=== PATIENT | female | born 1965 | race Caucasian/White ===

== ENCOUNTER 2018-04-16 19:25 | Emergency (ER) | payer OTHER, SELFPAY ==
[2018-04-16 19:26] VITALS: BP 168/86; PULSE 93; RESP 18; TEMP 36.8; O2SAT 100; BMI 26.8
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
[2018-04-16] MEDS: fentaNYL 100 MCG/2 ML Ampul 50 MCG IV ×2 (20:23→22:12)
[2018-04-16] MEDS: Diphth,Pertuss(Acell),Tet Vac 0.5 ML Vial IM (20:24)
[2018-04-16] MEDS: Cephalexin 250 MG Capsule 500 MG PO (20:24)
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
[2018-04-16 21:46] VITALS: TEMP 37.1
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
[2018-04-16] MEDS: proMETHazine 25 MG/ML Syringe 6.25 MG IV (22:11)
[2018-04-16] MEDS: BACITRACIN 15 GM Tube 1 APPLIC TOPICAL (22:59)
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
--- NOTE | 2018-04-16 23:02 | ED.DEP ---
ED Disposition - Plan for ED Patient: Chief Complaint: Trauma Instructions: ED Abrasion Prescriptions: Oxycodone [Oxyir] 5 mg PO Q6H PRN PRN 3 Days #12 tab PRN Reason: Pain Cephalexin [Keflex] 500 mg PO Q6 #28 cap Referrals: Miesha Aranda DO [Primary Care Provider] -
[2018-04-16] MEDS: oxyCODONE 5 MG Tablet PO (23:15)
[2018-04-16 23:21] VITALS: PULSE 78; RESP 14; O2SAT 100
== END 2018-04-16 23:22 | disposition home or self-care (01) ==
PROVIDERS: Emergency Provider Emergency Medicine; Family Provider Internal Medicine; PCP Internal Medicine
DX: S00.83XA Contusion of other part of head, initial encounter (principal); S30.811A Abrasion of abdominal wall, initial encounter; S40.812A Abrasion of left upper arm, initial encounter; S40.811A Abrasion of right upper arm, initial encounter; S80.812A Abrasion, left lower leg, initial encounter; S80.811A Abrasion, right lower leg, initial encounter; R07.9 Chest pain, unspecified; V19.9XXA Pedal cyclist (driver) (passenger) injured in unspecified traffic accident, initial encounter; Y93.55 Activity, bike riding; Y92.9 Unspecified place or not applicable; Y99.9 Unspecified external cause status; Z23 Encounter for immunization; G35 Multiple sclerosis; Z79.899 Other long term (current) drug therapy; Z85.6 Personal history of leukemia
CPT/HCPCS: 70450; 70486; 71045; 72125; 73080; 73130; 90471; 90715; 96374; 96375; 96376; 99283; A4216

== ENCOUNTER 2018-10-29 21:23 | Emergency (ER) | payer OTHER, SELFPAY ==
[2018-10-29 21:24] VITALS: BP 159/83; PULSE 86; RESP 16; TEMP 36.3; BMI 27.8
[2018-10-29] MEDS: 0.9% Normal Saline 1,000 ML 150 ML IV (23:17)
[2018-10-29 23:30] LABS: Bacteria 0 SEEN /hpf (None Seen); Mucous, Urine 0 SEEN /hpf (<or=2+); Squamous Epithelial Cells - UA 0 SEEN /hpf (5-10)
[2018-10-29 23:31] LABS: Absolute Lymphocyte Count 0.98 X10^3/ul (0.83-4.51); Absolute Neutrophil Count 7.1 X10^3/uL (2.0-7.7); Basophil# 0.03 X10^3/uL; Basophil% 0.3 % (0-1); Eosinophil# 0.19 X10^3/uL; Eosinophils% 2.1 % (0-5); Hematocrit 43.6 % (37-47); Hemoglobin 14.6 g/dl (12.0-15.0); Lymphocyte # 0.98 X10^3/ul (4.0); Lymphocyte % 10.7 % (19-41); Mean Corp Hgb Conc 33.5 g/gl (32-36); Mean Corpuscular Volume 92.6 fL (81-99); Monocyte# 0.88 X10^3/uL; Monocyte% 9.6 % (0-10); Neutrophil # 7.06 X10^3/uL (2.7-7.7); Neutrophil % 77.2 % (47-70); Platelet Count 235 K/mm3 (150-450); RBC Distribution Width CV 13.2 % (11.6-14.6); RBC Distribution Width SD 44.1 fl (35.1-43.9); Red Blood Count 4.71 M/mm3 (4.2-5.4); White Blood Count 9.2 K/mm3 (4.4-11.0)
[2018-10-29 23:40] LABS: Color, Urine Yellow (Yellow); Glucose, Dipstick Normal (Normal); Ketone-Dipstick Negative (Negative); Leukocyte Esterase-Dipstick 500 /ul (Negative); Nitrite-Dipstick Negative (Negative); Occult Blood-Urine 150 /ul (Negative); Protein-Dipstick 30 mg/dl (Negative); Specific Gravity, Urine 1.005 (1.002-1.030); Urine Bilirubin Dipstick Negative (Negative); Urine Clarity Sl. Cloudy (Clear); Urine Urobilinogen Normal (Normal)
[2018-10-29 23:47] LABS: Red Blood Cells-Urine 5-10 SEEN /hpf (0-5); White Blood Cells 25-50 SEEN /hpf (0-5)
[2018-10-29 23:48] LABS: Anion Gap 7 (5-15); BUN 13 mg/dL (7-18); BUN/Creat Ratio 14.1 RATIO (10-20); Calcium,Total 8.9 mg/dL (8.5-10.1); Chloride 103 mmol/L (98-107); Creatinine, Serum 0.92 mg/dL (0.55-1.02); EST Glomerular Filtration Rate 68 mL/min (>60); Est Glom Filt Rate - Afr Amer 82 mL/min (>60); Estimated Creatinine Clearance 76.45 ml/min; Glucose 115 mg/dL (74-106); Sodium Level 139 mmol/L (136-145)
[2018-10-29 23:52] LABS: POSITIVE COUNT NO; POSITIVE DIFFERENTIAL NO; POSITIVE MORPHOLOGY NO
[2018-10-30 00:21] VITALS: BP 112/62; PULSE 82; RESP 18; TEMP 37.2; O2SAT 96
--- NOTE | 2018-10-30 01:20 | CT_ITS ---
HISTORY: RLQ pain and fever x 2 days. Hx of lymphoma. No prev abdominal surgeries EXAMINATION: CT Abdomen And Pelvis W/ Contrast TECHNIQUE: Helically acquired images were obtained of the abdomen and pelvis following IV contrast. A radiation dose optimization technique was used for this scan. IV Contrast dosage and agent: 100ml Isovue 300 Oral contrast: None. COMPARISON: None FINDINGS: Lower thorax: Mild dependent atelectasis. Poor distention of the gallbladder. No biliary dilatation. Normal liver, spleen, and pancreas. Both kidneys are normal in position. Bilateral renal opacification. Asymmetric dilatation of the right renal pelvis with a crossing vessel near the right UPJ and developmental type UPJ narrowing is possible. Only minor calyceal distention on the right. The distal right ureter is nondilated. No renal calculi visualized. No hydronephrosis or hydroureter on the left. GN glands are not enlarged. Normal abdominal aorta and IVC. No ascites or retroperitoneal lymph enlargement. GI tract: Prominent constipation. The cecum is midline. The appendix is not visualized but no pericecal or pericolonic inflammatory changes visualized. Pelvis: Anteverted uterus which is normal in caliber. Small submucosal calcified fibroid suggested numerous pelvic phleboliths. Urinary bladder is poorly distended. No free fluid or lymph enlargement. Bones: No acute osseous abnormality. CT/Abdomen/Pelvis WITH Contrast IMPRESSION: 1. Prominent constipation and midline cecum. Nonvisualization of the appendix but no pericecal inflammatory changes seen. 2. Right renal pelviectasis with developmental UPJ narrowing on the right suggested. If symptoms warrant, further correlation with nuclear diuretic renal scan could be obtained on a nonemergent basis. Individualized dose optimization techniques were used for this CT. at 0157 Reported and signed by: Natanael Cummings MD Electronically Signed: Natanael Cummings, at 1:56 EDT Tel , Service support ,
--- NOTE | 2018-10-30 02:13 | ED.DCSUM_ITS ---
- ER Visit Summary Date of Service: 10/30/18 Chief Complaint: Abdominal pain History of Present Illness: The patient is a 52 F with history of MS, CML, asthma. Patient reports sharp right lower quadrant suprapubic pain after a bowel movement last night. She had aching sensation in her abdomen today but pa in turned sharp again tonight after a bowel movement. She states her temperature at home was around 101. Patient does have problems regulating her bowels and bladder with her MS. Physical Examination: Vital signs unremarkable. Temperature here is 97.3. Patient sitting upright in bed no acute distress. She is nontoxic appearing. Head neck examination is normal. Heart is regular rate and rhythm. Lungs sounds clear. Abdomen is soft with very mild tenderness in the right lower quadrant. Active bowel sounds are noted throughout. No guarding or rebound noted. Test Results: CBC and chemistry studies unremarkable. Urinalysis does show 25- 50 white cells with 0 bacteria. 0 epithelial cells are noted. CT abdomen pelvis with contrast shows prominent constipation and midline cecum. There is nonvisualization of the appendix but no jose-cecal inflammation is noted. Right renal pelviectasis with developmental UPJ narrowing is noted on the right. Emergency Department Course and Treatment: Patient declined anything for pain. She was given IV fluids. She will use MiraLAX to treat her constipation. Urine will be sent for culture. Because she does not have dysuria and no bacteria I will not start antibiotics at this time. Patient states she does have limitations on what antibiotics she can take. If her urine culture were to return positive we will call her. She states Macrobid works best for her if in fact she does have a UTI. Treatment Plan: [] Disposition: Discharge Impression: Constipation This note was generated with [employer] dictation software. It may contain incorrect words, spelling, and punctuation that were not noted in review of the chart prior to signing ED Disposition - Plan for ED Patient: Disposition: Home or Assisted Living Instructions: ED Constipation Referrals: Miesha Aranda, [Primary Care Provider] - 3-5 Days if not improving
--- NOTE | 2018-10-30 02:13 | ED.DEP ---
ED Disposition - Plan for ED Patient: Disposition: Home or Assisted Living Instructions: ED Constipation Referrals: Miesha Aranda DO [Primary Care Provider] - 3-5 Days if not improving
[2018-10-30 02:15] VITALS: BP 118/79; PULSE 83; RESP 16; O2SAT 95
== END 2018-10-30 02:16 | disposition home or self-care (01) ==
PROVIDERS: Emergency Provider Emergency Medicine; Family Provider Internal Medicine; PCP Internal Medicine
DX: K59.00 Constipation, unspecified (principal); G35 Multiple sclerosis; J45.909 Unspecified asthma, uncomplicated; Z79.899 Other long term (current) drug therapy; Z85.6 Personal history of leukemia
CPT/HCPCS: 74177; 80048; 81001; 85025; 87086; 87088; 87186; 96360; 96361; 99284; J7030; Q9967

== ENCOUNTER → 2019-02-25 10:59 | Outpatient (CLI) | payer OTHER, SELFPAY ==
[2019-02-25 11:39] LABS: Absolute Lymphocyte Count 1.22 X10^3/uL (0.83-4.51); Absolute Neutrophil Count 3.1 X10^3/uL (2.0-7.7); Basophil# 0.04 X10^3/uL; Basophil% 0.8 % (0-1); Eosinophil# 0.23 X10^3/uL; Eosinophils% 4.5 % (0-5); Hematocrit 43.3 % (37-47); Lymphocyte # 1.22 X10^3/ul (4.0); Lymphocyte % 23.7 % (19-41); Mean Corp Hgb Conc 32.3 g/dL (32-36); Mean Corpuscular Hgb 30.8 pg (27.0-32.0); Mean Corpuscular Volume 95.4 fL (81-99); Mean Platelet Vol. 9.3 fl (6.2-12.0); Monocyte# 0.59 X10^3/uL; Monocyte% 11.5 % (0-10); NRBC Flagged by Analyzer 0 % (0-5); Neutrophil # 3.05 X10^3/uL (2.7-7.7); Neutrophil % 59.1 % (47-70); Platelet Count 278 K/mm3 (150-450); RBC Distribution Width CV 13.8 % (11.6-14.6); RBC Distribution Width SD 48.1 fl (35.1-43.9); Red Blood Count 4.54 M/mm3 (4.2-5.4); White Blood Count 5.2 K/mm3 (4.4-11.0)
[2019-02-25 11:44] LABS: Color, Urine Yellow (Yellow); Glucose, Dipstick Normal (Normal); Ketone-Dipstick Negative (Negative); Leukocyte Esterase-Dipstick Negative /ul (Negative); Nitrite-Dipstick Negative (Negative); Occult Blood-Urine Negative /ul (Negative); Protein-Dipstick Negative (Negative); Specific Gravity, Urine 1.005 (1.002-1.030); Urine Bilirubin Dipstick Negative (Negative); Urine Clarity Clear (Clear); Urine Urobilinogen Normal (Normal)
[2019-02-25 12:01] LABS: Microalbumin,Random Urine 10.1 mg/L (NO RANGE EST.); Microalbumin:Creatinine Ratio 16.7 mg/g CRE (<30 mg/g CRE)
[2019-02-25 13:17] LABS: ALB/GLOB Ratio 1.2 RATIO (0.9-2.4); AST(SGOT) 19 U/L (15-37); Alanine Aminotransfer ALT/SGPT 26 U/L (13-56); Albumin, Serum 4.2 g/dL (3.2-5.0); Alkaline Phosphatase 68 U/L (45-117); Anion Gap 9 (5-15); BUN 14 mg/dL (7-18); Chloride 105 mmol/L (98-107); EST Glomerular Filtration Rate 94 mL/min (>60); Est Glom Filt Rate - Afr Amer 113 mL/min (>60); Globulin 3.6 g/dL (2.2-4.2); Glucose 92 mg/dL (74-106); Potassium 4.2 mmol/L (3.5-5.1); Protein, Total 7.8 g/dL (6.4-8.2); Sodium Level 138 mmol/L (136-145); Thyroid Stim Hormone (TSH) 2.29 uIU/mL (0.358-3.74)
[2019-02-26 16:07] LABS: CHOLESTEROL TOTAL 253 mg/dL (100-199); HDL-C 90 mg/dL (>39); SMALL LDL-P 346 nmol/L (<=527); TRIGLYCERIDES 60 mg/dL (0-149)
[2019-02-27 15:25] LABS: INSULIN RESISTANCE SCORE <25 (<=45); LDL SIZE 21.3 nm (>20.5); LDL-C 151 mg/dL (0-99); LDL-P 1459 nmol/L (<1000)
== END ==
PROVIDERS: Family Provider Internal Medicine; PCP Internal Medicine; Referring Provider Internal Medicine; Visit Provider Internal Medicine
DX: E78.00 Pure hypercholesterolemia, unspecified (principal); C95.90 Leukemia, unspecified not having achieved remission; R80.9 Proteinuria, unspecified
CPT/HCPCS: 36415; 80053; 80061; 81002; 82043; 82570; 83704; 84443; 85025

== ENCOUNTER → 2020-02-24 10:23 | Outpatient (CLI) | payer OTHER, SELFPAY ==
--- NOTE | 2020-02-24 10:31 | BD_ITS ---
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 COMPARISON: None. FINDINGS: Lumbar Spine (L1-L4): g/cm2 (1.1-0) / T-score (-0.5) / Z-score (0.1) Findings are suggestive of normal bone density with a low fracture risk. Left Femur Total: g/cm2 (0.961) / T-score (-0.4) / Z-score (0.2) Left Femoral Neck: g/cm2 (1.082) / T-score (0.3) / Z-score (1.2) Right Femur Total: g/cm2 (0.960) / T-score (-0.4) / Z-score (0.2) Right Femoral Neck: g/cm2 (1.061) / T-score (0.2) / Z-score (1.0) BD/Dexa Bone Density Study IMPRESSION: The patient is considered normal as outlined below according to World Sammy Organization (WHO) criteria with a low fracture risk. Reference Information: The T-score is the number of standard deviations above or below the standard which is normal for young adults at their peak bone mineral density. The World Health Organization (WHO) interprets the T-scores as follows: Above -1 Normal bone density Between -1 and -2.5 Osteopenia Equal to / or below -2.5 Osteoporosis As a practical clinical guideline, osteopenia may be graded as follows: Mild -1 through -1.5 Moderate -1.6 through -2.0 Severe -2.1 through -2.4 The Z-score is the number of standard deviations above or below age-matched controls. A Z-score of less than -1.5 would be considered abnormal. References: 1. NIH Osteoporosis and Related Bone Diseases http://www.osteo.org 2. International Society for Clinical Densitometry http://www.iscd.org 3. National Osteoporosis Foundation http://www.nof.org Electronically Signed: Gene Bowman, at 11:55 EDT , Service support ,
== END ==
PROVIDERS: PCP Internal Medicine; Referring Provider Internal Medicine; Visit Provider Internal Medicine
DX: Z78.0 Asymptomatic menopausal state (principal)
CPT/HCPCS: 77080

== ENCOUNTER 2021-07-01 18:22 | Outpatient (CLI) | payer OTHER, SELFPAY ==
[2021-07-01 18:30] VITALS: BP 154/79; PULSE 85; RESP 16; TEMP 37.2; O2SAT 98; BMI 29.5
[2021-07-01] MEDS: 0.9% Saline Lock 10 ML Syringe IV (18:39)
[2021-07-01 19:27] VITALS: BP 144/67; PULSE 79; RESP 16; TEMP 37; O2SAT 98
[2021-07-01 20:25] VITALS: BP 142/78; PULSE 79; RESP 16; TEMP 37.5; O2SAT 99
== END 2021-07-01 20:28 | disposition home or self-care (01) ==
LOC: MS3OUT 18:22 → MS3 18:23
PROVIDERS: PCP Internal Medicine; Referring Provider Nurse Practitioner Acute Care; Visit Provider Nurse Practitioner Acute Care
DX: Z23 Encounter for immunization (principal); U07.1 COVID-19
CPT/HCPCS: J7050; M0245; Q0245; A4216

== ENCOUNTER → 2022-04-18 | Outpatient (CLI) | payer OTHER, SELFPAY ==
--- NOTE | 2022-04-18 11:15 | BRBX_PTH ---
PATIENT: BRYANNA CHASE LOC: RO U#:[id number] AGE/SX: 56/F ROOM: RE04/18/[address]: Dr. Carmella Griffiths MD : 1965 BED: DIS: 04/18/2022 SPEC #: [id number] RECD: 04/18/22 11:55 STATUS: KAREEM REBrooke #: [id number] JODI: 04/18/22 11:[address]: Carmella Griffiths DEPT: SURGICAL PATHOLOGY RECD BY: Isela Valderrama ENTERED: 04/18/22 12:11 SP TYPE: BREAST BX OT DR: Dr. Miesha Aranda DO Tissues: Left breast, NOS Procedures: Surgery Specimen Level IV HEADER OPERATION: Left breast needle core biopsy PRE-OP DIAGNOSIS: Left breast calcifications superior lateral anterior depth TISSUE SUBMITTED: Left breast tissue ISCHEMIC TIME: 1 minute FIXATION TIME: 8.5 hours MICROSCOPIC DIAGNOSIS Left breast calcifications, superior lateral anterior depth, stereotactic core biopsy: Hyalinized intraductal papilloma with calcifications. Focal ductal dilatation. Negative for atypia or malignancy. See comment. KETTY:guzman 04/19/2022 COMMENT Correlation with clinical, radiologic findings and appropriate follow up are necessary. Case has been reviewed in consultation with Dr. Lopes who concurs with the above diagnosis. IDC:AM MICROSCOPIC DESCRIPTION Slides are reviewed. GROSS DESCRIPTION Received in fixative is one container labeled with the patient's name and designated left breast. The specimen consists of multiple elongated fragments of max-yellow fibroadipose tissue that in aggregate measure 4 x 3 x 0.3 cm. The entire specimen is submitted in two cassettes. / KETTY:guzman 04/18/2022 TC:1 CPT: 57400 ADDENDUM ADDENDUM ADDENDUM ADDENDUM ADDENDUM ADDENDUM ADDENDUM ADDENDUM ADDENDUM ADDENDUM 06/12/2022 07:54 ADDENDUM 06/12/2022 07:54 ADDENDUM 06/12/2022 07:54 ADDENDUM 06/12/2022 07:54 ADDENDUM 06/12/2022 07:54 This addendum is added to incorporate an outside pathology report. The case was examined at [facility] (#[id number]) and the following diagnosis was rendered. A. Left breast calcifications, superior lateral anterior depth, stereotactic core biopsy: Sclerotic intraductal papilloma with stromal microcalcifications Please see complete above mentioned consultation report in EMR
--- NOTE | 2022-04-18 11:23 | PCM.OPRPT ---
Report of Operation Date of Procedure: 04/18/22 Pre-Operative Diagnosis: abnormal left breast calcifications seen on mammograms Post-Operative Diagnosis: same Surgery/Procedure Performed:: left stereotactic breast biopsy Description of Surgical Findings:: on CC view, there are three clusters of calcifications circled, on LM view - there is just one cluster circled, therefore approach was LM. Upon biopsy, it is found that these are primarily vascular calcifications Surgeon: Carmella Griffiths Type of Anesthesia: Local Specimen's removed: left breast tissue Estimated Blood Loss (mL): < 2 ml Description of Procedure: After informed consent was given, the patient was brought into the Breast Biopsy suite. Appropriate time out protocol was followed. The patient was placed in the prone position on the stereotactic biopsy table. The patient?s left breast was then placed in the opening at the head of the biopsy table. A resolution specialist compression mammogram was then obtained in the lateral view. The suspicious radiological lesion was thus identified. With review of the mammograms, on CC view, there are three clusters of calcifications circled; on LM view - there is just one cluster circled, therefore approach was LM. Upon biopsy, it is found that these are primarily vascular calcifications. Stereo pictures of the lesion were then taken for XYZ coordinates. The Mammotome biopsy stylus was then positioned where it would be entering into the patient?s breast. The skin at this site was then cleansed with a surgical skin preparation. The skin and subcutaneous tissues at this site were then infiltrated with 1% xylocaine. A small skin incision was made with an 11 blade scalpel. The biopsy stylus was then positioned into the patient?s breast at the proper coordinates of depth. Using the Mammotome vacuum-assist device, several core samples of breast tissue were obtained. Once again, there was active bleeding noted, since a vascular biopsy essentially was done. A specimen mammogram was the obtained. It revealed that the abnormal calcifications were within the specimen. I reviewed this personally and concluded that the tissue sampling was adequate. A hemostatic marker clip was then placed into the biopsy cavity and a resolution specialist film revealed that it was properly deployed. The patient was then placed in the supine position and pressure was applied to the breast until no active bleeding was noted. Nylonc suture was placed to reapproximate the skin. Sterile dressing was applied. A unilateral mammogram in the CC and MLO view were then taken which revealed that the marker clip was in the same area as the previous suspicious lesion. The patient tolerated the procedure well and was discharged from the Breast Biopsy suite in good condition. Complications none noted
== END | disposition home or self-care (01) ==
LOC: BIRAD 10:48
PROVIDERS: PCP Internal Medicine; Visit Provider Surgery
DX: D24.2 Benign neoplasm of left breast (principal); G35 Multiple sclerosis; I10 Essential (primary) hypertension; E78.5 Hyperlipidemia, unspecified; Z79.82 Long term (current) use of aspirin; Z79.899 Other long term (current) drug therapy
CPT/HCPCS: 19081; 88305; J7050

== ENCOUNTER → 2023-02-13 | Outpatient (CLI) | payer OTHER, SELFPAY ==
--- NOTE | 2023-02-13 08:52 | BD_ITS ---
STUDY: DUAL ENERGY X-RAY ABSORPTIOMETRY / DXA REASON FOR EXAM: Female, 57 years old. [id number] TECHNIQUE: Bone Mineral Density (BMD) measurements of lumbar spine and bilateral hips were obtained. COMPARISON: Comparison is made with prior study February 24, 2020. FINDINGS: Lumbar Spine (L1-L4): g/cm2 (0.854) / T-score (-1.8) / Z-score (-0.7) Findings are suggestive of osteopenia with a moderate fracture risk. Left Femur Total: g/cm2 (0.834) / T-score (-0.9) / Z-score (-0.2) Left Femoral Neck: g/cm2 (0.804) / T-score (-0.4) / Z-score (0.7) Right Femur Total: g/cm2 (0.822) / T-score (-1.0) / Z-score (-0.3) Right Femoral Neck: g/cm2 (0.765) / T-score (-0.8) / Z-score (0.3) The T-Scores on the most recent prior examination were: Lumbar Spine (L1-L4): There has been worsening of bone density since the previous examination. Left Femur Total: which represents a worsening of 6.9%. Right Femur Total: which represents a worsening of 8.1%. BD/Dexa Bone Density Study IMPRESSION: The patient is considered osteopenic as outlined below according to World Sammy Organization (WHO) criteria with a moderate fracture risk. There has been worsening of bone density since the previous examination. Reference Information: The T-score is the number of standard deviations above or below the standard which is normal for young adults at their peak bone mineral density. The World Health Organization (WHO) interprets the T-scores as follows: Above -1 Normal bone density Between -1 and -2.5 Osteopenia Equal to / or below -2.5 Osteoporosis As a practical clinical guideline, osteopenia may be graded as follows: Mild -1 through -1.5 Moderate -1.6 through -2.0 Severe -2.1 through -2.4 The Z-score is the number of standard deviations above or below age-matched controls. A Z-score of less than -1.5 would be considered abnormal. References: 1. NIH Osteoporosis and Related Bone Diseases www osteo.org 2. International Society for Clinical Densitometry www iscd.org 3. National Osteoporosis Foundation www nof.org Electronically Signed: Gene Bowman MD at 9:07 EDT ,
== END | disposition home or self-care (01) ==
LOC: OPBD 08:43
PROVIDERS: PCP Internal Medicine; Referring Provider Internal Medicine; Visit Provider Internal Medicine
DX: Z13.820 Encounter for screening for osteoporosis (principal); Z78.0 Asymptomatic menopausal state
CPT/HCPCS: 77080

== ENCOUNTER → 2023-02-26 | Outpatient (CLI) | payer OTHER, SELFPAY ==
--- NOTE | 2023-02-26 18:24 | US_ITS ---
STUDY: THYROID ULTRASOUND REASON FOR EXAM: Female, 57 years old. Thyromegaly . Prior resection of the right lobe of the thyroid. TECHNIQUE: Ultrasound evaluation of the thyroid was performed with real-time and static leavitt-scale imaging. COMPARISON: Comparison is made with prior study dated March 04, 2010. FINDINGS: RIGHT LOBE: The patient is status post resection of the right lobe of the thyroid. I suspect residual 9 mm x 8 mm x 6 mm thyroid remanent. LEFT LOBE: The left lobe of the thyroid gland is slightly enlarged measures 5 cm x 1.7 cm x 1.3 cm. There is a homogeneous echotexture. There is a 2 mm x 2 mm x 2 mm hypoechoic solid nodule in the upper pole. There is also evidence of a 2 mm x 2 mm x 2 mm cystic colloid in the mid pole. ISTHMUS: The isthmus measures 7 mm. The regional lymph nodes are normal. US/Thyroid IMPRESSION: Status post subtotal right thyroidectomy. There are 2, 2 mm nodules in the left lobe. Electronically Signed: Gene Bowman MD at 14:51 EDT ,
== END | disposition home or self-care (01) ==
PROVIDERS: PCP Internal Medicine; Referring Provider Internal Medicine; Visit Provider Internal Medicine
DX: E01.0 Iodine-deficiency related diffuse (endemic) goiter (principal)
CPT/HCPCS: 76536

== ENCOUNTER → 2023-06-14 | Outpatient (CLI) | payer OTHER, SELFPAY ==
[2023-06-14 06:56] LABS: Mucous, Urine 0 SEEN /hpf (<or=2+); Red Blood Cells-Urine 0 SEEN /hpf (0-5)
[2023-06-14 07:15] LABS: Absolute Lymphocyte Count 1.63 X10^3/uL (0.83-4.51); Absolute Neutrophil Count 4.4 X10^3/uL (2.0-7.7); Basophil# 0.04 X10^3/uL; Basophil% 0.6 % (0-1); Eosinophil# 0.16 X10^3/uL; Eosinophils% 2.3 % (0-5); Hematocrit 46.9 % (37-47); Lymphocyte # 1.63 X10^3/ul (0.83-4.51); Lymphocyte % 23.9 % (19-41); Mean Corpuscular Volume 93.8 fL (81-99); Mean Platelet Vol. 8.8 fl (6.2-12.0); Monocyte# 0.51 X10^3/uL; Monocyte% 7.5 % (0-10); NRBC Flagged by Analyzer 0 % (0-5); Neutrophil # 4.44 X10^3/uL (2.7-7.7); Neutrophil % 65.3 % (47-70); Platelet Count 321 K/mm3 (150-450); RBC Distribution Width CV 13.2 % (11.6-14.6); RBC Distribution Width SD 45.1 fl (35.1-43.9); White Blood Count 6.8 K/mm3 (4.4-11.0)
[2023-06-14 07:19] LABS: Color, Urine Yellow (Yellow); Glucose, Dipstick Normal (Normal); Ketone-Dipstick Negative (Negative); Leukocyte Esterase-Dipstick 100 /ul (Negative); Nitrite-Dipstick Negative (Negative); Occult Blood-Urine 10 /ul (Negative); Protein-Dipstick 15 mg/dl (Negative); Specific Gravity, Urine 1.015 (1.002-1.030); Urine Bilirubin Dipstick Negative (Negative); Urine Clarity Clear (Clear); Urine Urobilinogen Normal (Normal)
[2023-06-14 07:54] LABS: AST(SGOT) 13 U/L (15-37); Alanine Aminotransfer ALT/SGPT 23 U/L (13-56); Albumin, Serum 3.9 g/dL (3.2-5.0); Alkaline Phosphatase 88 U/L (45-117); Anion Gap 7 (5-15); BUN 13 mg/dL (7-18); BUN/Creat Ratio 16.8 RATIO (10-20); Chloride 105 mmol/L (98-107); Cholesterol 244 mg/dL (200); Creatinine, Serum 0.77 mg/dL (0.55-1.02); EST Glomerular Filtration Rate 82 mL/min (>60); Est Glom Filt Rate - Afr Amer 100 mL/min (>60); Glucose 95 mg/dL (74-106); High Density Lipoprotein 58 mg/dL; Potassium 3.9 mmol/L (3.5-5.1); Protein, Total 7.9 g/dL (6.4-8.2); Sodium Level 139 mmol/L (136-145); Thyroid Stim Hormone (TSH) 2.31 uIU/mL (0.358-3.74); Triglycerides 116 mg/dL; Very Low Density Lipoprotein 23 mg/dL (5-40)
[2023-06-14 08:13] LABS: Microalbumin,Random Urine 11.5 mg/L (NO RANGE EST.)
[2023-06-14 08:19] LABS: Bacteria 1+ /hpf (None Seen); Squamous Epithelial Cells - UA 0-5 SEEN /hpf (5-10); Transitional Epithelial - Ur 0-5 SEEN /hpf (0-5); White Blood Cells 0-5 SEEN /hpf (0-5)
[2023-06-15 18:07] LABS: CHOLESTEROL TOTAL 264 mg/dL (100-199); HDL-C 60 mg/dL (>39); HDL-P TOTAL 37.6 umol/L (>=30.5); INSULIN RESISTANCE SCORE 45 (<=45); LDL SIZE 21.2 nm (>20.5); LDL-C (NIH CALC) 185 mg/dL (0-99); LDL-P 2179 nmol/L (<1000); SMALL LDL-P 929 nmol/L (<=527); TRIGLYCERIDES 109 mg/dL (0-149)
== END | disposition home or self-care (01) ==
LOC: LAB 06:50
PROVIDERS: PCP Internal Medicine; Referring Provider Internal Medicine; Visit Provider Internal Medicine
DX: E78.00 Pure hypercholesterolemia, unspecified (principal); E88.810 Metabolic syndrome; R80.9 Proteinuria, unspecified
CPT/HCPCS: 36415; 80053; 80061; 81001; 82043; 82570; 83704; 84443; 85025

== ENCOUNTER → 2025-07-22 | Outpatient (CLI) | payer OTHER, SELFPAY ==
--- NOTE | 2025-07-22 08:24 | BD_ITS ---
PROCEDURE: DEXA BONE DENSITY STUDY 07/22/2025 REASON FOR EXAM: F, age 59 y/o . Postmenopausal. TECHNIQUE: Procedure Code: BDDBD Modality: DX Procedure: DEXA BONE DENSITY STUDY COMPARISON: DEXA examination dated 02/13/2023 FINDINGS: BMD and T-SCORES Lumbar spine: 0.877 g/cm2, T-score -1.5 Levels: L1 through L4 Change from prior: Significant increase of 2.7% since the prior study dated 02/13/2023. Left femoral neck: 0.730 g/cm2, T-score -1.1 Left total hip: 0.809 g/cm2, T-score -1.1 Change from prior: There has been a decrease of the bone mineral density of the left hip by 3.1% since the prior study dated 02/13/2023 Right femoral neck: 0.743 g/cm2, T-score -1.0 Right total hip: 0.802 g/cm2, T-score -1.1 Change from prior: There has been a decrease in the bone mineral density of the right hip by 2.5% since the prior study dated 02/13/2023. The World Health Organization has defined the following categories based on bone density: Normal bone density: T-score equal to or greater than -1.0 Osteopenia: T-score between -1.0 and -2.5 Osteoporosis: T-score equal to or less than -2.5 FRAX (or Comparable) Fracture Risk Assessment: 10 Year Probability of Fracture: Major Osteoporotic Fracture: 11% Hip Fracture: 0.7% (Note: FRAX is not to be reported in setting of normal range bone density, osteoporosis on DEXA, known history of osteoporosis, prior osteoporotic hip or vertebral fracture, or for any patient undergoing pharmacological treatment for bone loss.) The National Osteoporosis Foundation (NOF) recommends pharmacological treatment for patients with a FRAX 10-year risk of 3% or higher for a hip fracture, or 20% or higher for a major osteoporotic fracture, to prevent osteoporosis and reduce fracture risk. The patient does not meet the pharmacological treatment recommendations for prevention of osteoporosis. BD/Dexa Bone Density Study IMPRESSION: OSTEOPENIA. Recommend follow-up in 1 year. Reading Location: [id number]
--- OUTSIDE RECORDS SUMMARY | 2025-07-22 08:30 | XMS RPT_ITS | CCD ---
Author Organization [facility] Care Team Providers Care Java Web User Interface Developer Name Role Phone Mick Smith Unavailable Unavailable *SELF, REFERRED Unavailable Unavailable Fast, Ronna A Unavailable Unavailable Wilmer, Miesha Unavailable Bola Cunningham Unavailable Callum Stephenson Unavailable Andrew Boston Unavailable Unavailable Julio Erazo Unavailable Unavailable Messenger, Julio Unavailable Unavailable Slarb, Makayla Unavailable Unavailable Unavailable Unavailable Wilmer, Miesha Unavailable Unavailable Fast, Ronna A Unavailable Unavailable Wilmer, Miesha Unavailable Unavailable Wilmer, Miesha Unavailable Bola Cunningham Unavailable Callum Stephenson Unavailable Andrew Boston Unavailable Unavailable ErazoJulio Unavailable Unavailable Gravius, Kaitlin Unavailable Unavailable Messenger, Julio Unavailable Unavailable Slarb, Makayla Unavailable Unavailable Unavailable Unavailable Mayuri Doshi Unavailable Andrew Boston Unavailable Unavailable Mayuri Doshi Unavailable Fermin, Nivia L Unavailable Unavailable Gravius, Kaitlin Unavailable Unavailable Manchak, Mindy Unavailable Unavailable Messenger, Julio Unavailable Unavailable Briseida Garcia Unavailable Unavailable Andrew Fontana Unavailable Unavailable Wilmer DO, Miesha Unavailable Bola Cunningham MD Unavailable [phone] Dr. Callum Stephenson Unavailable Mayuri Doshi Unavailable Slarb SPACE SCIENCES DIRECTOR, Makayla Unavailable Unavailable Andrew Fontana LPN Unavailable Unavailable Gravius SPECIAL EDUCATION RESOURCE TEACHER, Kaitlin Unavailable Unavailable Unavailable Unavailable Jaxon BIRMINGHAM, Mireya Unavailable Unavailable Donnie SPACE SCIENCES DIRECTOR, Melissa Unavailable Unavailable WilmerMiesha green DO Primary Care Provider Wilmer DORogelioMiesha Unavailable Wilmer DOMiesha Primary Care Provider Miesha Guillen DO Primary Care Provider Dr. Miesha Guillen Primary Care Provider [phone] Dr. [place] Attending Provider Wilmer DO, Miesha Unavailable Bola Cunningham MD Unavailable Dr. Callum Stephenson Unavailable Mayuri Doshi Unavailable Gravius SPECIAL EDUCATION RESOURCE TEACHER, Kaitlin Unavailable Unavailable Addi SPACE SCIENCES DIRECTOR, Andrew Unavailable Unavailable Slarb SPACE SCIENCES DIRECTOR, Makayla Unavailable Unavailable Donnie SPACE SCIENCES DIRECTOR, Melissa Unavailable Unavailable Unavailable Unavailable Wilmer DO, Miesha Kim Primary Care Provider Miesha Guillen DO Unavailable Saul SPACE SCIENCES DIRECTOR, Hansel Unavailable Unavailable MIKEY, GIANNA A Referring Unavailable MIESHA GUILLEN Primary Care Unavailab le WILMER, MIESHA KIM Primary Care Unavailab le MIKEYGIANNA Referring Unavailable MIKEYGIANNA FUENTES Attending Unavailable MIESHA GUILLEN Primary Care Unavailab ALISON Ruiz Referring Unavailable WilmerMiesha green DO Primary Care Provider Wilmer DOMiesha Primary Care Provider MIESHA GUILLEN Referring Unavailable MIESHA GUILLEN Primary Care Unavailable MASCI, SP A Referring Unavailable WILMER, MIESHA KIM Primary Care Unavailab le MASCI SP A Attending Unavailable MASCTi, SP A Referring Unavailable WILMERMIESHA GREEN Primary Care Unavailab le WILMERMIESHA Primary Care Unavailab le WILMERMIESHA Primary Care Unavailab le WilmerMiesha green Attending Unavailable Miesha Guillen Primary Care Unavailable Chuck José Miguel Attending Unavailable Miesha Guillen Primary Care Unavailable Cristobal Jackson Attending Unavailable Cristobal Jackson Referring Unavailable Miesha Guillen Primary Care Unavailable Allergies Allergy Classification Reported Allergen(s) Allergy Type Date of Onset Reaction(s) Facility (13 sources) Acetaminophen / Propoxyphene; Translations: [Darvocet A500 *ANALGESICS - OPIOID*] Drug Allergy [facility] Work Phone: Comment on above: Nausea, Vomiting (20 sources) egg white (chicken) allergenic extract; Translations: [Egg White] Drug Allergy [facility] Work Phone: Comment on above: Cant get influenza v accine (20 sources) Glatiramer; Translations: [Copaxone *PSYCHOTHERAPEUT IC AND NEUROLOGICAL AGENTS - MISC.*] Drug Allergy 07-01-20 21 Rash [facility] Work Phone: Comment on above: severe local reactio n (20 sources) Sulfonamides (Antibiotic); Translations: [Sulfa Drugs] allergy to substance [facility] Work Phone: Comment on above: Nausea, Vomiting (1 source) allergy to substance [facility] Work Phone: (20 sources) Animal Dander; Translations: [Animal Dander] allergy to substance [facility] Work Phone: (1 source) allergy to substance [facility] Work Phone: (20 sources) Insect Stings; Translations: [Insect Stings] allergy to substance [facility] Work Phone: (1 source) allergy to substance [facility] Work Phone: (20 sources) Quinolones (Antibiotic) allergy to substance [facility] Work Phone: (20 sources) mycines (Renamed from Barbiturates) allergy to substance [facility] Work Phone: (20 sources) Ragweed allergy to substance [facility] Work Phone: (20 sources) Darvocet A500 *ANALGESICS - OPIOID*; Translations: [Darvocet A500 *ANALGESICS - OPIOID*] Allergy to drug (finding) [facility] Work Phone: Comment on above: Nausea, Vomiting (20 sources) Adhesive Tape; Translations: [ADHESIVE TAPE (ROSINS)] Allergy to substance 12-31-19 14 Other: See Comments [facility] (20 sources) Cat; Translations: [CATS] Propensity to adverse reactions 10-18-19 06 [facility] Work Phone: (20 sources) Ciprofloxacin; Translations: [CIPROFLOXACIN] Drug Allergy 07-13-20 20 Other: See Comments [facility] (19 sources) Erythromycin Drug Allergy 06-07-20 20 Other: See Comments [facility] (20 sources) Glatiramer; Translations: [GLATIRAMER ACETATE] Drug Allergy 10-17-19 15 Rash [facility] (20 sources) Propoxyphene N-Acetaminophen; Translations: [PROPOXYPHENE N-ACETAMINOPHEN] Propensity to adverse reactions 10-18-19 06 [facility] Work Phone: (7 sources) eggs [Other] Propensity to adverse reactions 10-18-19 06 [facility] Work Phone: (4 sources) egg extract Drug Allergy 04-16-[address] [facility] (5 sources) Propoxyphene; Translations: [propoxyphene napsylate] Drug Allergy 04-16-[address] [facility] (4 sources) Quinolones (Antibiotic) Propensity to adverse reactions 07-01-[address] [facility] (4 sources) Sulfonamides (Antibiotic) Allergy to substance 04-16-[address] [facility] (1 source) Allergy to substance (finding) [facility]; [facility] Work Phone: (1 source) Allergy to substance (finding) [facility]; [facility] Work Phone: (1 source) Allergy to substance (finding) [facility]; [facility] Work Phone: (1 source) Allergy to substance (finding) [facility]; [facility] Work Phone: (1 source) Allergy to substance (finding) [facility]; [facility] Work Phone: (1 source) Allergy to substance (finding) [facility]; [facility] Work Phone: (1 source) Allergy to substance (finding) [facility]; [facility] Work Phone: (1 source) Allergy to substance (finding) [facility]; [facility] Work Phone: (1 source) Allergy to substance (finding) [facility]; [facility] Work Phone: (1 source) Allergy to substance (finding) [facility]; [facility] Work Phone: (1 source) Allergy to substance (finding) [facility]; [facility] Work Phone: (1 source) Allergy to substance (finding) [facility]; [facility] Work Phone: (1 source) Allergy to substance (finding) [facility]; [facility] Work Phone: (1 source) Allergy to substance (finding) [facility]; [facility] Work Phone: (1 source) Allergy to substance (finding) [facility]; [facility] Work Phone: (1 source) Allergy to substance (finding) [facility]; [facility] Work Phone: (1 source) Allergy to substance (finding) [facility]; [facility] Work Phone: (1 source) Allergy to substance (finding) [facility]; [facility] Work Phone: (1 source) Allergy to substance (finding) [facility]; [facility] Work Phone: (1 source) Allergy to substance (finding) [facility]; [facility] Work Phone: (1 source) Allergy to substance (finding) [facility]; [facility] Work Phone: (1 source) ALLERGIES NOT ON FILE; Translations: [ALLERGIES NOT ON FILE] Propensity to adverse reactions (disorder) [place] [id number] Repository (1 source) egg extract Drug Allergy 06-01-20 [facility] Repository (1 source) Glatiramer Drug Allergy 06-01-20 [facility] Repository (1 source) Quinolones (Antibiotic) Drug allergy (disorder) 06-01-20 [facility] Repository (1 source) Sulfonamides (Antibiotic) Drug allergy (disorder) 06-01-20 [facility] Repository Medications Current Medications Medication Drug Class(es) Dates Sig (Normalized) Sig (Original) calcium citrate 1040 mg oral tablet (8 sources) take 1 tablet by mouth once daily Calcium Citrate 250 mg calcium tab Take 1 tablet by mouth once daily. Active Comment on above: Take 1 tablet by caryn th once daily. Cetirizine (20 sources) Histamine-1 Receptor Antagonist take 1 tablet by mouth once daily as needed CETIRIZINE HCL (ZYRTEC ORAL) Take 1 tablet by mouth once daily as needed. Active CETIRIZINE HCL ( ZYRTEC ORAL) Take 1 tablet by mouth once daily. 1/2 tab as needed Active CETIRIZINE HCL ( ZYRTEC ORAL) Take 1 tablet by mouth once daily. 1/2 tab as needed 0 Active Comment on above: Take 1 tablet by caryn th once daily. 1/2 tab as needed cholecalciferol 0.125 mg oral capsule (20 sources) Vitamin D Start: 8 take 1 capsule by mouth once daily Cholecalciferol, Vitamin D3, 5,000 unit cap Take 1 capsule by mouth once daily. 07/14/2019 Active Comment on above: Take 1 capsule by mo [facility] once daily. Cranberry (4 sources) Non-Standardized Food Allergenic Extract, Non-Standardized Plant Allergenic Extract Start: 8 take 400 mg by mouth once daily Cranberry Active 400 MG PO DAILY April 15, 2018 11:00pm Start: 04-16-2018 take 400 mg by mouth once andie y Cranberry Active 400 MG PO DAILY April 16, 2018 12:00am dimethyl fumarate 240 mg delayed release oral capsule (20 sources) Start: 04-16-2018 End: 08-10-2022 take 1 capsule by mouth twice daily Dimethyl Fumarate (Tecfidera) 240 MG capsule,delayed release(DR/EC) Active 240 MG PO TWICE A DAY April 15, 2018 11:00pm Start: 09-18-2014 End: 10-18-2014 Comment on above: Dr. Jamison gardner TAKE ONE CAPSULE BY MOUTH TWICE DAILY. STORE IN ORIGINAL CONTAINER AT ROOM TEMPERATURE. TAKE 1 CAPSULE BY [facility] 2 TIMES A DAY. STORE IN ORIGINAL CONTAINER AT ROOM TEMPERATURE. L.Acidoph, Paracasei,B. Lactis (4 sources) Start: 04-16-2018 L.Acidoph, Paracasei,B. Lactis Active 1 EACH PO DAILY April 15, 2018 11:00pm Start: 04-16-2018 L.Acidoph, Par acasei,B. Lactis Active 1 EACH PO DAILY April 16, 2018 12:00am 24 hr mirabegron 50 mg extended release oral tablet (20 sources) beta3-Adrenergic Agonist Start: 04-16-2018 End: 03-01-2022 take 50 mg by mouth once daily Myrbetriq Active 50 MG PO DAILY April 15, 2018 11:00pm Comment on above: Take 50 mg by mouth once daily. vibegron (GEMTESA) 75 mg tablet (20 sources) take 1 tablet by mouth once daily vibegron (GEMTESA) 75 mg tablet Take 75 mg by mouth once daily. Active take 1 tablet by mouth once andie y vibegron (GEMTESA) 75 mg tablet Take 75 mg by mouth once daily. 0 Active Comment on above: Take 75 mg by mouth once daily. Completed/Discontinued Medications Medication Drug Class(es) Dates Sig (Normalized) Sig (Original) [id number] 200 actuat albuterol 0.09 mg/actuat metered dose inhaler (20 sources) beta2-Adrenergic Agonist Start: 05-17-2016 End: 01-11-2023 Start: 05-17-2016 take 2 puff(s) by in halation three times daily ProAir HFA 108 (90 Base) MCG/ACT Inhalation Aerosol Solution 2 (two) Puff Puff tid for 0 days Quantity: 1 {Inhaler} Refills: 0 Ordered: 17-May-2016 Julio Huang RN Start : 17-May-2016 Active Start: 05-17-2016 take 2 puff(s) by in halation three times daily ProAir HFA 108 (90 Base) MCG/ACT Inhalation Aerosol Solution 2 (two) Puff Puff tid for 0 days Quantity: 1 {Inhaler} Refills: 0 Ordered: 17-May-2016 Julio Huang RN Start : 17-May-2016 Active Start: 05-17-2016 ProAir HFA 108 (90 Base) MCG/ACT Inhalation Aerosol Solution 2 (two) Puff Puff tid for 0 days Quantity: 1 {Inhaler} Refills: 0 Ordered: 17-May-2016 Julio Huang LPN Start : 17-May-2016 Active Start: 06-14-2010 End: 02-28-2011 Start: 06-14-2010 End: 02-28-2011 PROVENTIL HFA, 108 (90 Base)MCG/ACT (Inhalation Aerosol Solution) 2 puffs qid prn Aerosol Soln qid prn for 0 days Quantity: 1 {Aerosol_Soln} Refills: 0 Ordered: 28-Feb-2011 Start : 14-Jun-2010 End : 28-Feb-2011 Inactive Start: 06-14-2010 End: 02-28-2011 PROVENTIL HFA, 108 (90 Base)MCG/ACT (Inhalation Aerosol Solution) 2 puffs qid prn Aerosol Soln qid prn for 0 days Quantity: 1 {Aerosol_Soln} Refills: 0 Ordered: 28-Feb-2011 Start : 14-Jun-2010 End : 28-Feb-2011 Inactive Start: 05-24-2006 End: 03-11-2007 Start: 05-24-2006 End: 03-11-2007 Start: 05-24-2006 End: 03-11-2007 ALBUTEROL SULFATE HFA, 108MC G/ACT (Inhalation Aerosol Soln) 2 (two) Aerosol Soln QID/PRN for 0 days Quantity: 1 {Aerosol_Soln} Refills: 3 Ordered: 24-May-2006 Deidre Jessica Start : 24-May-2006 End : 11-Mar-2007 Inactive Start: 05-24-2006 End: 03-11-2007 ALBUTEROL SULFATE HFA, 108MC G/ACT (Inhalation Aerosol Soln) 2 (two) Aerosol Soln QID/PRN for 0 days Quantity: 1 {Aerosol_Soln} Refills: 3 Ordered: 24-May-2006 Deidre Jessica Start : 24-May-2006 End : 11-Mar-2007 Inactive ALBUTEROL SULFATE HFA, 108MCG/ACT (Inhalation Aerosol Soln) (6 sources) Start: 05-24-2006 End: 03-11-2007 ALBUTEROL SULFATE HFA, 108MCG/ACT (Inhalation Aerosol Soln) 2 (two) Aerosol Soln QID/PRN for 0 days Quantity: 1 {Aerosol_Soln} Refills: 3 Ordered: 24-May-2006 Jaskaran Deidre Start : 24-May-2006 End : 11-Mar-2007 Inactive amoxicillin 875 mg oral tablet (20 sources) Penicillin-class Antibacterial Start: 06-19-2013 End: 01-28-2014 amoxicillin 875 mg / clavulanate 125 mg oral tablet (20 sources) Penicillin-class Antibacterial Start: 07-18-2018 End: 08-01-2018 Start: 07-18-2018 End: 08-01-2018 take 1 tablet by mouth twice daily Augmentin 875-125 MG Oral Tablet 1 (one) Tablet PO BID for 14 days Quantity: 28 {Tablet} Refills: 0 Ordered: 18-Jul-2018 Julio Erazo Start : 18-Jul-2018 End : 01-Aug-2018 Inactive Start: 10-24-2017 End: 11-03-2017 Start: 10-24-2017 End: 11-03-2017 take 1 tablet by mouth twice daily Augmentin 875-125 MG Oral Tablet 1 Tablet bid for 10 days Quantity: 20 {Tablet} Refills: 0 Ordered: 24-Oct-2017 Miesha Guillen DO, DO, Kathleen Start : 24-Oct-2017 End : 03-Nov-2017 Inactive aspirin 81 mg delayed release oral tablet (20 sources) Platelet Aggregation Inhibitor, Nonsteroidal Anti-inflammatory Drug Start: 01-03-2021 End: 08-10-2022 take 1 tablet by mouth once daily aspirin, enteric coated (ECOTRIN LOW STRENGTH) 81 mg EC tablet Take 1 tablet by mouth once daily. 30 tablet 0 01/03/2021 08/10/2022 Discontinued Start: 12-03-2015 End: 01-02-2016 Comment on above: flushing with tecfid maria l Take 1 tablet by caryn th once daily. Carboxymethylcellulose (6 sources) End: 03-01-2022 CARBOXYMETHYLCELLULOSE SODIU M (REFRESH OPHTHALMIC) Use 1 Drop in eyes as needed. 0 03/01/2022 Discontinued (Other) CARBOXYMETHYLCEL LULOSE SODIUM (REFRESH OPHTHALMIC) Use 1 Drop in eyes as needed. 0 Active Comment on above: Use 1 Drop in eyes a s needed. cefuroxime 500 mg oral table t (20 sources) Cephalosporin Antibacterial Start: 09-21-2014 End: 09-21-2014 Start: 04-24-2014 End: 05-01-2014 cephalexin 500 mg oral capsule (20 sources) Cephalosporin Antibacterial Start: 04-22-2014 End: 04-24-2014 CRANBERRY FRUIT EXTRACT (CRANBERRY EXTRACT ORAL) (20 sources) End: 04-04-2023 take 1 capsule by mouth once daily CRANBERRY FRUIT EXTRACT (CRANBERRY EXTRACT ORAL) Take 1 capsule by mouth once daily. 0 04/04/2023 Discontinued take 1 capsule by mouth once erlin ly CRANBERRY FRUIT EXTRACT (CRANBERRY EXTRACT ORAL) Take 1 capsule by mouth once daily. 0 Active Comment on above: Take 1 capsule by mo [facility] once daily. docusate sodium 50 mg / burak osides, [facility] 8.6 mg oral tablet (20 sources) take 2 tablets by mouth once erlin ly SENOKOT S, 8.6-50MG (Oral Tablet) 2 tabs qd (8.6-50 MG) Inactive EPINEPHrine 0.01 mg/ml / lidocaine hydrochloride 10 mg/ml injectable solution (1 source) Antiarrhythmic, alpha-Adrenergic Agonist, beta-Adrenergic Agonist, Catecholamine, Amide Local Anesthetic Start: 04-16-2023 End: 04-16-2023 SUBCUTANEOUS, X (OR/PROCEDURE) PRN, Starting on Sun04/16/23 at 1104, Until Sun04/16/23 at 1104, Intraprocedure 21 day ethinyl estradiol 0.910140 mg/hr / etonogestrel 0.005 mg/hr vaginal system (20 sources) Progestin, Estrogen End: 03-11-2007 fenofibric acid 45 mg delayed release oral capsule (20 sources) Peroxisome Proliferator Receptor alpha Agonist Start: 01-11-2010 End: 01-11-2010 fluconazole 150 mg oral tablet (20 sources) Azole Antifungal Gemtesa 75 MG Oral Tablet (10 sources) Gemtesa 75 MG Or al Tablet (75 MG) Active Comments: dr jackson Comment on above: dr jackson Gemtesa 75 mg oral tablet (3 sources) Start: 023 Grape Seed Extract (1 source) End: 022 take 1 tablet by mouth once daily grape seed extract (GRAPE SEED ORAL) Take 1 tablet by mouth once daily. 0 10/21/2021 Discontinued Comment on above: Take 1 tablet by caryn th once daily. ibuprofen 400 mg oral tablet (20 sources) Nonsteroidal Anti-inflammatory Drug Start: 013 End: 016 iv contrast (will be provided with radiology test) (20 sources) Start: End: inject 1 dose intravenously once iv contrast (will be provided with radiology test) MRI Brain Inject, intravenously, once for 1 dose.No IV access, insert saline lock prior to beginning of sedation, infusion, injection of imaging exam.Discontinue saline lock post exam. If Pt. has a central line or IVAD, may access for administration according to line specific nursing protocol.Once exam is complete flush line and de-access according to line specific nursing protocol in the MR contrast administration guidelines link 1 Each 0 08/30/2023 01/02/2024 Discontinued Start: 08-30-2023 inject 1 dose intravenously on ce iv contrast (will be provided with radiology test) MRI Brain Inject, intravenously, once for 1 dose.No IV access, insert saline lock prior to beginning of sedation, infusion, injection of imaging exam.Discontinue saline lock post exam. If Pt. has a central line or IVAD, may access for administration according to line specific nursing protocol.Once exam is complete flush line and de-access according to line specific nursing protocol in the MR contrast administration guidelines link 1 Each 0 08/30/2023 Active Start: 02-27-2023 End: 01-02-2024 inject 1 dose intravenously once iv contrast (will be provided with radiology test) Indications: Multiple sclerosis (HCC) MRI Brain Inject, intravenously, once for 1 dose.No IV access, insert saline lock prior to beginning of sedation, infusion, injection of imaging exam.Discontinue saline lock post exam. If Pt. has a central line or IVAD, may access for administration according to line specific nursing protocol.Once exam is complete flush line and de-access according to line specific nursing protocol in the MR contrast administration guidelines link 1 Each 02/27/2023 01/02/2024 Discontinued Start: 02-27-2023 End: 01-02-2024 inject 1 dose intravenously once iv contrast (will be provided with radiology test) Indications: Multiple sclerosis (HCC) MRI Brain Inject, intravenously, once for 1 dose.No IV access, insert saline lock prior to beginning of sedation, infusion, injection of imaging exam.Discontinue saline lock post exam. If Pt. has a central line or IVAD, may access for administration according to line specific nursing protocol.Once exam is complete flush line and de-access according to line specific nursing protocol in the MR contrast administration guidelines link 1 Each 0 02/27/2023 01/02/2024 Discontinued Start: 02-27-2023 inject 1 dose intravenously on ce iv contrast (will be provided with radiology test) Indications: Multiple sclerosis (HCC) MRI Brain Inject, intravenously, once for 1 dose.No IV access, insert saline lock prior to beginning of sedation, infusion, injection of imaging exam.Discontinue saline lock post exam. If Pt. has a central line or IVAD, may access for administration according to line specific nursing protocol.Once exam is complete flush line and de-access according to line specific nursing protocol in the MR contrast administration guidelines link 1 Each 0 02/27/2023 Active Start: 03-01-2022 End: 08-30-2022 inject 1 dose intravenously once iv contrast (will be provided with radiology test) Indications: Encounter for long-term (current) use of medications , Multiple sclerosis (HCC) MRI Brain Inject, intravenously, once for 1 dose.No IV access, insert saline lock prior to beginning of sedation, infusion, injection of imaging exam.Discontinue saline lock post exam. If Pt. has a central line or IVAD, may access for administration according to line specific nursing protocol.Once exam is complete flush line and de-access according to line specific nursing protocol in the MR contrast administration guidelines link 1 Each 0 03/01/2022 08/30/2022 Discontinued (Other) Start: 03-01-2022 inject 1 dose intravenously on ce iv contrast (will be provided with radiology test) Indications: Encounter for long-term (current) use of medications , Multiple sclerosis (HCC) MRI Brain Inject, intravenously, once for 1 dose.No IV access, insert saline lock prior to beginning of sedation, infusion, injection of imaging exam.Discontinue saline lock post exam. If Pt. has a central line or IVAD, may access for administration according to line specific nursing protocol.Once exam is complete flush line and de-access according to line specific nursing protocol in the MR contrast administration guidelines link 1 Each 0 03/01/2022 Active Start: 09-30-2021 End: 03-01-2022 inject 1 dose intravenously once iv contrast (will be provided with radiology test) MRI Brain Inject, intravenously, once for 1 dose.No IV access, insert saline lock prior to beginning of sedation, infusion, injection of imaging exam.Discontinue saline lock post exam. If Pt. has a central line or IVAD, may access for administration according to line specific nursing protocol.Once exam is complete flush line and de-access according to line specific nursing protocol in the MR contrast administration guidelines link 1 Each 0 09/30/2021 03/01/2022 Discontinued (Other) Start: 09-30-2021 inject 1 dose intravenously on ce iv contrast (will be provided with radiology test) MRI Brain Inject, intravenously, once for 1 dose.No IV access, insert saline lock prior to beginning of sedation, infusion, injection of imaging exam.Discontinue saline lock post exam. If Pt. has a central line or IVAD, may access for administration according to line specific nursing protocol.Once exam is complete flush line and de-access according to line specific nursing protocol in the MR contrast administration guidelines link 1 Each 0 09/30/2021 Active Comment on above: MRI Brain Inject, in travenously, once for 1 dose.No IV access, insert saline lock prior to beginning of sedation, infusion, injection of imaging exam.Discontinue saline lock post exam. If Pt. has a central line or IVAD, may access for administration according to line specific nursing protocol.Once exam is complete flush line and de-access according to line specific nursing protocol in the MR contrast administration guidelines link ivermectin 3 mg oral tablet (20 sources) Antiparasitic, Pediculicide Start: End: LACTOBACILLUS COMBINATION NO.8 (ADULT PROBIOTIC ORAL) (20 sources) End: 024 take 1 capsule by mouth once daily LACTOBACILLUS COMBINATION NO.8 (ADULT PROBIOTIC ORAL) Take 1 capsule by mouth once daily. Nature's Bounty 01/02/2024 Discontinued End: 01-02-2024 take 1 capsule by mouth once daily LACTOBACILLUS COMBINATION NO.8 (ADULT PROBIOTIC ORAL) Take 1 capsule by mouth once daily. Nature's Bounty 0 01/02/2024 Discontinued take 1 capsule by [facility] once daily LACTOBACILLUS COMBINATION NO.8 (ADULT PROBIOTIC ORAL) Take 1 capsule by mouth once daily. Nature's Bounty 0 Active Comment on above: Take 1 capsule by mo [facility] once daily. Nature's Bounty levoFLOXacin 500 mg oral tablet (20 sources) Quinolone Antimicrobial Start: 07-03-2007 End: 10-12-2008 Lidocaine (4 sources) Antiarrhythmic, Amide Local Anesthetic Start: 04-16-2023 End: 04-16-2023 OTHER, X (OR/PROCEDURE) PRN, Starting on Sun04/16/23 at 1104, Until Sun04/16/23 at 1104, Intraprocedure Start: 03-30-2023 End: 03-30-2023 lidocaine (PF) 10 mg/mL (1 % ) 4 mL injection (XYLOCAINE) Start: 12-07-2022 End: 12-07-2022 lidocaine (PF) 10 mg/mL (1 % ) 4 mL injection (XYLOCAINE) lubiprostone 0.024 mg oral capsule (20 sources) Chloride Channel Activator Start: 08-16-2012 End: 08-16-2012 magnesium oxide 400 mg oral capsule (20 sources) Start: 12-03-2015 End: 01-02-2016 meloxicam 15 mg oral tablet (20 sources) Nonsteroidal Anti-inflammatory Drug Start: 07-16-2019 End: 02-18-2020 Start: 05-08-2019 take 1 tablet by [facility] once daily at mealtime Mobic 15 MG Oral Tablet 1 (one) Tablet qd with food for 0 days Quantity: 30 {Tablet} Refills: 0 Ordered: 08-May-2019 Miesha Guillen DO, DO, Kathleen Start : 08-May-2019 Active metroNIDAZOLE 500 mg oral ta blet (20 sources) Nitroimidazole Antimicrobial Start: 08-18-2015 End: 11-01-2015 mometasone furoate 0.05 mg/a ctuat metered dose nasal spray (20 sources) Corticosteroid Start: 10-24-2017 Start: 10-24-2017 take 1 spray(s) nasa l route once daily Nasonex 50 MCG/ACT Nasal Suspension 1 (one) [place] each nostril daily for 0 days Quantity: 1 {Container} Refills: 0 Ordered: 24-Oct-2017 Andrew Fontana LPN Start : 24-Oct-2017 Active Multivitamin preparation (20 sources) take 1 tablet by mouth once andie y MULTIVITAMIN (PO Tab) 1 tab qd Inactive nilotinib 150 mg oral capsul e (20 sources) Kinase Inhibitor Start: 07-16-2012 End: 08-16-2012 take 2 tablets by mouth twice da arjun TASIGNA, 150MG (Oral Capsule) 2 tabs bid (150 MG) Inactive nitrofurantoin, macrocrystal s 25 mg / nitrofurantoin, monohydrate 75 mg oral capsule (20 sources) Nitrofuran Antibacterial Start: 09-19-2021 End: 10-01-2021 Start: 07-27-2021 End: 08-06-2021 take 1 capsule by mouth twice daily Macrobid 100 MG Oral Capsule 1 (one) Capsule bid for 10 days Quantity: 20 {Capsule} Refills: 0 Ordered: 27-Jul-2021 Wilmer HERNANDEZMakayla Start : 27-Jul-2021 End : 06-Aug-2021 Inactive Start: 12-03-2015 End: 12-13-2015 take 1 capsule by mouth twice daily MACROBID, 100MG (Oral Capsule) 1 (one) Capsule bid for 10 days Quantity: 20 {Capsule} Refills: 0 Ordered: 03-Dec-2015 Ronna Gross DO Start : 03-Dec-2015 End : 13-Dec-2015 Inactive ofloxacin 3 mg/ml ophthalmic solution (20 sources) Quinolone Antimicrobial Start: 11-16-2008 End: 01-19-2009 Start: 11-16-2008 End: 01-19-2009 OCUFLOX, 0.3% (Ophthalmic So lution) 1 Solution 1-2 gtts q1-6 hrs for 6 days Refills: 0 Ordered: 16-Nov-2008 Franca Sifuentes Start : 16-Nov-2008 End : 19-Jan-2009 Inactive 24 hr oxybutynin chloride 10 mg extended release oral tablet (20 sources) Cholinergic Muscarinic Antagonist Start: 10-25-2017 End: 03-12-2019 polyethylene glycol 3350 170 00 mg powder for oral solution (20 sources) Osmotic Laxative MIRALAX (Oral Po wder) 1 to 2 tbsp qd Inactive predniSONE 20 mg oral tablet (20 sources) Start: 07-28-2021 End: 09-21-2021 Start: 07-28-2021 End: 09-21-2021 predniSONE 20 MG Oral Tablet 1.5 Tablet bid for 6 days for 0 days Quantity: 18 {Tablet} Refills: 0 Ordered: 21-Sep-2021 Melissa Fields LPN Start : 28-Jul-2021 End : 21-Sep-2021 Inactive rosuvastatin calcium 5 mg or al tablet (20 sources) HMG-CoA Reductase Inhibitor Start: 02-06-2022 End: 01-11-2023 Start: 01-12-2022 take 1 tablet by caryn th once daily at bedtime Crestor 5 MG Oral Tablet 1 (one) Tablet qhs for 90 days Quantity: 90 {Tablet} Refills: 3 Ordered: 12-Jan-2022 Miesha Guillen DO, DO, Kathleen Start : 12-Jan-2022 Active Comments: Mail order. Start: 07-28-2021 take 1 tablet by caryn th once daily at bedtime Crestor 5 MG Oral Tablet 1 (one) Tablet qhs for 0 days Quantity: 30 {Tablet} Refills: 3 Ordered: 28-Jul-2021 Melissa Fields LPN Start : 28-Jul-2021 Active Comment on above: Mail order. solifenacin succinate 10 mg oral tablet (20 sources) Cholinergic Muscarinic Antagonist Start: 10-24-2017 End: 10-24-2017 Comment on above: from MS --- cant tolerate it bc of severe dryness 1 ml triamcinolone acetonide 40 mg/ml injection (20 sources) Corticosteroid Start: 03-30-2023 End: 03-30-2023 triamcinolone acetonide 40 mg injection (KeNALog 40) Start: 12-07-2022 End: 12-07-2022 triamcinolone acetonide 40 m g injection (KeNALog 40) Start: 10-12-2008 End: 11-16-2008 Start: 10-12-2008 End: 11-16-2008 Start: 10-12-2008 End: 11-16-2008 NASACORT AQ, 55MCG/ACT (Nasa l Aerosol Solution) 2 (two) Aerosol Soln 1-2 squirts gently daily for 3 days Quantity: 1 {Aerosol_Soln} Refills: 0 Ordered: 12-Oct-2008 Jolynndanni Franca Start : 12-Oct-2008 End : 16-Nov-2008 Inactive Start: 10-12-2008 End: 11-16-2008 NASACORT AQ, 55MCG/ACT (Nasa l Aerosol Solution) 2 (two) Aerosol Soln 1-2 squirts gently daily for 3 days Quantity: 1 {Aerosol_Soln} Refills: 0 Ordered: 12-Oct-2008 Franca Sifuentes CNP Start : 12-Oct-2008 End : 16-Nov-2008 Inactive vancomycin 125 mg oral capsule (20 sources) Glycopeptide Antibacterial Start: 03-21-2013 End: 06-19-2013 Vitamin C, Zinc (14 sources) Vitamin C, Zinc Active Problems Active Problems Problem Classification Problem Date Documented Date Episodic/Chronic Abdominal pain (20 sources) Generalized abdominal pain; Translations: [Abdominal pain, acute, generalized] 07-18-2018 Episodic Administrative/social admission (20 sources) Medical examinations/reports status; Translations: [Patient encounter status] Resolved: 3 10-24-2017 Episodic Anxiety disorders (20 sources) Anxiety; Translations: [Anxiety] 07-18-2018 Chronic Comment on above: see note Asthma (20 sources) Asthma; Translations: [Asthma] 07-18-2018 Chronic Comment on above: only a prob if get u ri Chronic obstructive pulmonary disease and bronchiectasis (20 sources) Bronchitis; Translations: [Bronchitis] Resolved: 3 02-28-2017 Episodic Comment on above: given augmentin Coronary atherosclerosis and other heart disease (20 sources) Coronary atherosclerosis and other heart disease Resolved: 9 10-24-2017 Deficiency and other anemia (5 sources) Iron deficiency anemia due to blood loss; Translations: [Iron deficiency anemia secondary to blood loss (chronic)] Onset: 6 Resolved: 7 10-30-2016 Chronic Deficiency and other anemia (20 sources) Iron deficiency anemia; Translations: [Iron deficiency anemia] Resolved: 2 07-18-2018 Episodic Diabetes mellitus without complication (20 sources) Glycosuria; Translations: [Hyperglycemia] Resolved: 2 07-18-2018 Episodic Diseases of white blood cells (20 sources) Leukocytosis; Translations: [Elevated white blood cell count, unspecified] Resolved: 0 02-28-2017 Chronic Disorders of lipid metabolism (20 sources) Hypercholesterolemia; Translations: [Hypercholesteremia] Onset: 7 07-18-2018 Chronic Comment on above: pt to do diet and ex ercise Fever of unknown origin (20 sources) Fever; Translations: [Fever] Resolved: 3 10-24-2017 Episodic Comment on above: presume Influenza, d id not get flu shot egg allergy Genitourinary symptoms and ill-defined conditions (20 sources) Urinary incontinence; Translations: [Urinary incontinence] 07-18-2018 Chronic Genitourinary symptoms and ill-defined conditions (20 sources) Urinary frequency; Translations: [Microalbuminuria] Resolved: 2 07-18-2018 Episodic Comment on above: MS side effect part of her MS and u sually presneting sx is fever and macrobid works best for hersees Melissa for this too no htn no dm - dehyd ration related? from fasting labs ?-- will follow before more w/u Immunizations and screening for infectious disease (20 sources) Need for prophylactic vaccination and inoculation against influenza; Translations: [Contact with and (suspected) exposure to other viral communicable diseases] Resolved: 3 01-27-2020 Episodic Inflammation; infection of eye (except that caused by tuberculosis or sexually transmitteddisease) (20 sources) Optic neuritis; Translations: [Optic neuritis] Onset: 4 07-18-2018 Chronic Comment on above: stable-- has MS and sees [facility] she will fu with eye dr Inflammation; infection of eye (except that caused by tuberculosis or sexually transmitteddisease) (20 sources) Conjunctivitis; Translations: [Unspecified conjunctivitis] Resolved: 9 07-09-2015 Episodic Intestinal infection (20 sources) Clostridium difficile colitis; Translations: [Colitis due to Clostridium difficile (Renamed from C. difficile colitis)] 07-18-2018 Episodic Leukemias (20 sources) Chronic myeloid leukemia in remission; Translations: [Leukemia] Onset: 0 07-18-2018 Chronic Comment on above: DR Lang is oncologi st Leukemias (20 sources) Leukemias Malaise and fatigue (20 sources) Exhaustion; Translations: [Other malaise and fatigue] Resolved: 0 10-24-2017 Episodic Menopausal disorders (20 sources) Menopausal flushing; Translations: [Hot flashes] 07-18-2018 Chronic Comment on above: she will discuss vijaya Lang Menstrual disorders (20 sources) Irregular periods; Translations: [Irregular periods] 07-18-2018 Chronic Comment on above: had a pelvic us last yr & normal so will not repeat now -- i think more perimenopausal Mood disorders (6 sources) Mood swings; Translations: [Emotional lability] 01-11-2023 Episodic Multiple sclerosis (20 sources) Multiple sclerosis; Translations: [Multiple sclerosis] Onset: 5 Resolved: 3 07-18-2018 Chronic Comment on above: no relapse in 4yr -- she has relapsing remitting no relapse in 4yr -- she has relapsing remitting// currently being looked at to know iftruly MS or nerve damage from chemo Nausea and vomiting (20 sources) Nausea; Translations: [Nausea] Resolved: 2 07-28-2021 Episodic Comment on above: cont tums or conside r pepcid Neoplasms of unspecified nature or uncertain behavior (20 sources) Thrombocytosis Chronic Neoplasms of unspecified nature or uncertain behavior (20 sources) Thrombocytosis; Translations: [Thrombocytosis] Resolved: 0 10-24-2017 Episodic Other aftercare (4 sources) Patient encounter status; Translations: [Other prison (current) drug therapy] Episodic Other and unspecified benign neoplasm (1 source) Duct papilloma of breast; Translations: [Benign neoplasm, unspecified site] Episodic Other and unspecified benign neoplasm (18 sources) Papilloma of breast; Translations: [Benign neoplasm of left breast] Onset: 2 Episodic Other circulatory disease (20 sources) Elevated blood-pressure reading without diagnosis of hypertension; Translations: [Elevated blood pressure (not hypertension)] 07-18-2018 Episodic Comment on above: better Other connective tissue disease (20 sources) Pain in right foot; Translations: [Right foot pain] Resolved: 0 07-01-2021 Episodic Other connective tissue disease (2 sources) Biceps tendinitis; Translations: [Bicipital tendinitis, left shoulder] Episodic Other ear and sense organ disorders (20 sources) Ear pressure sensation; Translations: [Ear pressure] Resolved: 9 07-18-2018 Episodic Other ear and sense organ disorders (20 sources) Impacted cerumen; Translations: [Cerumen impaction] Resolved: 7 02-28-2017 Episodic Other endocrine disorders (20 sources) Hyperprolactinemia; Translations: [Hyperprolactinemia] 07-18-2018 Chronic Comment on above: check last brain mri Other female genital disorders (20 sources) Cyst of uterine adnexa; Translations: [Adnexal cyst] Resolved: 0 01-15-2020 Episodic Other gastrointestinal disorders (20 sources) Malabsorption - iron; Translations: [Intestinal malabsorption, unspecified] Onset: 6 04-21-2016 Chronic Other gastrointestinal disorders (20 sources) Constipation; Translations: [Constipation] Resolved: 6 02-28-2017 Episodic Other gastrointestinal disorders (20 sources) Diarrhea; Translations: [Diarrhea] Resolved: 6 02-28-2017 Episodic Comment on above: from augmentin Other lower respiratory disease (20 sources) Dyspnea; Translations: [Shortness of breath] 07-18-2018 Episodic Other lower respiratory disease (20 sources) Shortness of breath Episodic Other lower respiratory disease (20 sources) Cough; Translations: [Cough] Resolved: 9 07-18-2018 Episodic Comment on above: post viral broncho v s other Other lower respiratory disease (20 sources) Cough; Translations: [Post-COVID chronic cough] 07-28-2021 Episodic Comment on above: -May 2021 Other nervous system disorders (20 sources) Mortons neuroma of right foot; Translations: [Monsivais's neuroma of right foot] Resolved: 0 07-01-2021 Chronic Other nervous system disorders (1 source) Demyelinating disease of central nervous system; Translations: [Demyelinating disease of central nervous system, unspecified] 08-30-2023 Chronic Other non-traumatic joint disorders (20 sources) Joint pain; Translations: [Arthralgia] 07-18-2018 Episodic Other nutritional; endocrine; and metabolic disorders (20 sources) Body mass index 25-29 - overweight; Translations: [BMI 27.0-27.9,adult] Resolved: 8 07-18-2018 Chronic Other nutritional; endocrine; and metabolic disorders (20 sources) Metabolic syndrome X; Translations: [Dysmetabolic syndrome X] 07-18-2018 Chronic Other nutritional; endocrine; and metabolic disorders (20 sources) Dysmetabolic syndrome X Chronic Other nutritional; endocrine; and metabolic disorders (20 sources) Metabolic syndrome Chronic Other nutritional; endocrine; and metabolic disorders (20 sources) Body mass index 25-29 - overweight; Translations: [BMI 26.0-26.9,adult] Resolved: 8 07-28-2021 Episodic Other nutritional; endocrine; and metabolic disorders (20 sources) Loss of appetite; Translations: [Lack of appetite] 07-28-2021 Episodic Comment on above: from lack of smell./ taste?- from lack of smell./ taste?-improving bc starting to come back - still altered Other nutritional; endocrine; and metabolic disorders (20 sources) Overweight in adulthood with body mass index of 25 or more but less than 30; Translations: [BMI 26.0-26.9,adult] Resolved: 8 01-12-2022 Episodic Other nutritional; endocrine; and metabolic disorders (6 sources) Weight gain; Translations: [Weight gain] 01-11-2023 Episodic Other screening for suspected conditions (not mental disorders or infectious disease) (20 sources) Blood chemistry abnormal; Translations: [Breast neoplasm screening status] Onset: 6 Resolved: 1 10-24-2017 Episodic Other upper respiratory disease (20 sources) Allergic rhinitis; Translations: [Allergic rhinitis] Onset: 6 Resolved: 8 10-24-2017 Chronic Comment on above: try zyrtec Other upper respiratory disease (20 sources) Allergic rhinitis due to other allergen Chronic Other upper respiratory disease (20 sources) Nasal sinus problem; Translations: [Sinus pressure] Resolved: 9 07-18-2018 Episodic Other upper respiratory infections (20 sources) Chronic sinusitis, unspecified; Translations: [Chronic sinusitis] Resolved: 0 07-18-2018 Chronic Comment on above: sx for>2weeks Other upper respiratory infections (20 sources) Acute sinusitis; Translations: [Upper respiratory infection] Onset: 2 07-18-2018 Episodic Comment on above: with leukemia meds n ot able to use quinolones or myycin. augmentin cause cdiff. pt afraid will try straight amoxicillin to start. Phlebitis; thrombophlebitis and thromboembolism (20 sources) Phlebitis and thrombophlebitis of other sites; Translations: [PHLEBITIS AND THROMBOPHLEBITIS OF OTHER SITES, OTHER] Resolved: 3 10-24-2017 Episodic Comment on above: superficial thrombop helbitis from IV admin Residual codes; unclassified (20 sources) Influenza-like symptoms; Translations: [Flu-like symptoms] Resolved: 7 10-24-2017 Episodic Residual codes; unclassified (18 sources) H/O: surgery; Translations: [Tonsillectomy] 07-18-2018 Episodic Residual codes; unclassified (20 sources) Postmenopausal state; Translations: [Postmenopausal] 02-18-2020 Episodic Residual codes; unclassified (20 sources) Non-smoker; Translations: [Non-smoker] 07-28-2021 Episodic Residual codes; unclassified (2 sources) Pain; Translations: [Pain, unspecified] Episodic Residual codes; unclassified (2 sources) Viral syndrome; Translations: [Flu-like symptoms] Resolved: 7 10-24-2017 Episodic Thyroid disorders (20 sources) Thyroid nodule; Translations: [Goiter] Onset: 9 Resolved: 1 10-24-2017 Chronic Comment on above: noncanceruious -- h/ o right lobe thyriod resected Unclassified (20 sources) Unclassified (20 sources) GENERAL SYMPTOMS, OTHER MALAISE AND FATIGUE (780.79) Unclassified (20 sources) hair loss-feels more than usual - but no scalp lesion or rash identified Resolved: 9 10-24-2017 Comment on above: feels this is ok at this point- will follow Unclassified (20 sources) Hypercholesteremia (272.0) Unclassified (20 sources) NONSPECIFIC FINDINGS ON EXAMINATION OF BLOOD, OTHER ABNORMAL BLOOD CHEMISTRY (790.6) Unclassified (20 sources) Elevated Blood Pressure(796.2) Unclassified (20 sources) THYROMEGALY (240.9) Unclassified (20 sources) Non-smoker; Translations: [Non-smoker] 07-18-2018 Unclassified (20 sources) Hot Flashes (782.62) Unclassified (20 sources) BMI 27.0-27.9,adult Unclassified (20 sources) Leukocytosis NOS (288.60) Unclassified (20 sources) CML in remission Unclassified (20 sources) BMI 25.0-25.9,adult Unclassified (20 sources) Hypercholesteremia Unclassified (20 sources) Sinusitis,chronic (473.9) Unclassified (20 sources) Adnexal cyst Unclassified (20 sources) Arthralgia Unclassified (20 sources) Glucosuria Unclassified (20 sources) Cerumen impaction Unclassified (19 sources) Postmenopausal Unclassified (19 sources) Nutritional counseling Unclassified (20 sources) BMI 29.0-29.9,adult Unclassified (20 sources) Lack of appetite Unclassified (14 sources) Post-COVID chronic cough Unclassified (1 source) Established Patient Onset: 3 Urinary tract infections (20 sources) Urinary tract infectious disease; Translations: [Urinary tract infection, site not specified] 07-18-2018 Episodic Comment on above: recurrent Urinary tract infections (20 sources) Urinary tract infections Viral infection (20 sources) Severe acute respiratory syndrome; Translations: [SARS (severe acute respiratory syndrome)] 07-28-2021 Episodic Past or Other Problems Problem Classification Problem Date Documented Da te Episodic/Chronic Blindness and vision defects (20 sources) Central scotoma; Translations: [Scotoma involving central area, unspecified eye] Onset: 6 10-29-2015 Episodic Deficiency and other anemia (20 sources) Iron deficiency anemia secondary to inadequate dietary iron intake; Translations: [Other iron deficiency anemias] Onset: 7 10-30-2016 Episodic Deficiency and other anemia (20 sources) Deficiency and other anemia Essential hypertension (5 sources) Essential hypertension; Translations: [Essential (primary) hypertension] Onset: 7 Resolved: 4 01-19-2014 Chronic Gastritis and duodenitis (5 sources) Acute hemorrhagic gastritis; Translations: [Acute gastritis with bleeding] Onset: 7 Resolved: 7 06-05-2017 Episodic Leukemias (20 sources) History of myeloid leukemia; Translations: [Personal history of leukemia] Onset: 1 05-10-2021 Episodic Nonmalignant breast conditions (20 sources) Mammographic calcification of left breast; Translations: [Mammographic calcification found on diagnostic imaging of breast] Onset: 6 Resolved: 3 Episodic Other and unspecified benign neoplasm (20 sources) Benign neoplastic disease; Translations: [Benign neoplasm, unspecified site] Onset: 6 06-06-2006 Episodic Other and unspecified benign neoplasm (15 sources) Intraductal papilloma of left breast; Translations: [Benign neoplasm of left breast] Onset: 2 04-04-2023 Episodic Other and unspecified benign neoplasm (12 sources) Intraductal papilloma of right breast; Translations: [Benign neoplasm of right breast] Onset: 3 04-04-2023 Episodic Other and unspecified benign neoplasm (1 source) Benign neoplasm of left breast; Translations: [Papilloma of left breast] Onset: 2 Episodic Other connective tissue disease (15 sources) Pain in right foot; Translations: [Right foot pain] Resolved: 0 05-08-2019 Other gastrointestinal disorders (12 sources) Mass of uterine adnexa; Translations: [Adnexal cyst] 07-18-2018 Episodic Other nervous system disorders (15 sources) Mortons neuroma of right foot; Translations: [Monsivais's neuroma of right foot] Resolved: 0 05-08-2019 Residual codes; unclassified (18 sources) Needs influenza immunization; Translations: [Need for prophylactic vaccination and inoculation against influenza] Resolved: 3 05-04-2015 Episodic Residual codes; unclassified (16 sources) Vaccination required; Translations: [Vaccine for [id number] tussis with poliomyelitis] Resolved: 3 10-24-2017 Episodic Unclassified (20 sources) Well Women Exam (V72.31)( Pap, Mammo, Routine Female and Dexa) (Renamed from Well Woman V72.31 (p,m,d)) Unclassified (20 sources) PREVENTION OF TETANUS (V03.7) Unclassified (20 sources) Conjunctivitis, unspecified (372.30) Unclassified (20 sources) screening 07-18-2018 Unclassified (20 sources) Unspecified Diagnosis 05-17-2016 Unclassified (2 sources) Requires vaccination; Translations: [Vaccine for [id number]-fmd tussis with poliomyelitis] Resolved: 3 10-24-2017 Unclassified (20 sources) Sinusitis, bacterial Unclassified (20 sources) Sinus pressure Unclassified (20 sources) Ear pressure Unclassified (20 sources) Abdominal Pain,General (789.07) Unclassified (20 sources) Urinary urgency Unclassified (20 sources) Colitis due to Clostridium difficile (008.45) Unclassified (20 sources) Abnormal CT of Abdomen(794.9) Unclassified (20 sources) Flu-like symptoms Unclassified (20 sources) PHLEBITIS AND THROMBOPHLEBITIS OF OTHER SITES, OTHER (451.89) Unclassified (20 sources) Encounter for screening mammogram for breast cancer (Renamed from Encounter for screening mammogram for malignant neoplasm of breast); Translations: [Patient encounter status] 07-18-2018 Unclassified (20 sources) Elevated blood pressure (not hypertension) Unclassified (20 sources) BMI 28.0-28.9,adult Unclassified (20 sources) Right foot pain Unclassified (20 sources) Monsivais's neuroma of right foot Unclassified (20 sources) Patient encounter status; Translations: [Travel advice encounter] 01-15-2020 Unclassified (20 sources) Exposure to SARS-associated coronavirus Unclassified (20 sources) BMI 26.0-26.9,adult Unclassified (14 sources) Exposure to SARS virus Unclassified (6 sources) Breast cancer screening Unclassified (2 sources) Abnormal mammogram Viral infection (14 sources) Disease caused by 2019-nCoV Results Test Name Value Interpretation Reference Range Facility Internal Medicine Office [facility] 05-28-2025 Internal Medicine Office Visit [facility] Internal Medicine [address] [place] [address] [place] [address] OFFICE VISIT Date of Service: 06/01/25 MR#: [id number] Acct: [id number] Name: BRYANNA RAMIREZ ISAI Rep #: [id number] : 1965 Provider: Dr. Miesha tirado DO Age/Sex: 59/F Location: [facility] Status: Signed Intake Vital Signs 02/13/23 08:46 06/01/25 08:03 Height 5 ft 9 in 5 ft 9 in Weight: 198 lb 6 oz BMI 29.2 BP 112/75 Blood Pressure Location Rt brachial Position Sitting Respiration 18 Pulse 81 Temp 99.2 F H Temp Source Temporal Pulse Oximetry (%) 98 Oxygen Delivery Method room air Intake Visit Reasons: FOLLOW UP Chief Complaint: need mammogram and pap- Is patient in pain?: No Allergies glatiramer (copolymer 1) (From Copaxone) Allergy (Verified 06/01/25 08:09) Rash propoxyphene napsylate (From Darvocet-N) Allergy (Verified 06/01/25 08:09) Vomiting Sulfa (Sulfonamide Antibiotics) Allergy (Verified 06/01/25 08:09) Rash egg Adverse Reaction (Verified 06/01/25 08:09) Nausea Quinolones Adverse Reaction (Verified 06/01/25 08:09) Other Medications ???Medication ???Instructions ???Recorded ???Confirmed ???Type L.acidoph,paracasei,B.ani malis 10 1 ea PO DAILY 04/16/18 06/01/25 H istory billion cell capsule Myrbetriq 50 mg PO DAILY 04/16/18 06/01/25 H istory cholecalciferol (vitamin D3) 125 5,000 unit PO DAILY 04/16/1806/01 History mcg (5,000 unit) capsule cranberry fruit 400 mg capsule 400 mg PO DAILY 04/16/18 06/01/25 History dimethyl fumarate 240 mg 240 mg PO BID 04/16/18 06/01/25 Hi story capsule,delayed release (Tecfidera) vibegron 75 mg tablet (Gemtesa) 75 mg PO QDAY 06/01/25 06/01/25 Hi story Have you fallen in the past year?: Yes (hurt knee but no injuries) Nurse's Note: pt here for mammogram and pap smear [facility] Medical History (Updated 06/01/25 @ 09:16 by Viviana Johnson) Screening cholesterol level Well woman exam with routine gynecological exam Family History (Updated 06/01/25 @ 08:13 by Viviana Johnson) Grandfather Heart disease Colon cancer Grandmother Heart disease Social History (Updated 06/01/25 @ 08:14 by Viviana Johnson) Smoking Status: Never smoker alcohol intake: current alcohol intake frequency: a few times a week details: 2 a week what type of physical activity do you participate in: yoga frequency: 5-6 times per week seatbelt use: always do you feel safe at home: Yes Female Reproductive History Menstrual Date of last menstrual period: 06/01/19 Menopause type: natural (natural in 2019) HPI HPI Chief Complaint: need mammogram and pap- Details: BRYANNA RAMIREZ, is a 59 F who presents to the office today for HPI Comments Details: she never had an abnomral pap- no change in sexual partner HPV neg in past ROS Const Constitutional: No anorexia, body ache, chills, excessive sweating, fatigue, fever(s), frequent falls, headache(s), decreased energy, malaise, night sweats, snoring, weakness, weight change, sleep problems, abnormal sleep pattern, change in appetite or other Eyes Eyes: No blurry vision, change in vision, double vision, irritation, discharge, vision loss, dry eyes, bulging eyes, floaters, visual disturbances, eye pain, Light sensitivity, spots in vision, tunnel vision or other ENT ENT: No abnormal hearing, ear or mastoid pain, ear discharge, ear pressure, hearing loss, tinnitus, dizziness/vertigo, balance problems, nosebleed/epistaxis, nasal congestion, nasal obstruction, nose pain, sinus pressure, sinus pain, nasal discharge, post nasal drip, headache(s), facial pain, dental pain, dry mouth, difficulty swallowing, bad breath, hoarseness, lip swelling, mouth lesions, mouth pain, neck pain, sore throat, tongue swelling, throat swelling or other Resp Respiratory: No cough, change in phlegm color, chest congestion, excessive phlegm production, hemoptysis, pain on inspiration, shortness of breath, pain with cough, snoring, stridor, wheezing or other Cardio Cardiology: No chest pain at rest, chest pain with exertion, leg pain with exertion, excessive sweating, shortness of breath, dyspnea on exertion, generalized swelling, irregular heart rhythm, lightheadedness, orthopnea, radiating jaw, neck or arm pain, fast heart rate, slow heart rate, palpitations, difficulty breathing or other Gastro GI: No abdominal pain, belching, bloating, change in bowel habits, change in stool character, coffee ground emesis, constipation, cramping, diarrhea, heartburn, difficulty swallowing, feeling full early, excessive flatus, incontinent of stools, Vomiting blood/hematemesis, Blood in stool, loose stools, Black,tarry stools, nausea/dyspepsia, pain with swallowing, vomiting or other Genitourinary-Female: Positive (more content not included)... Normal [facility] BCR/ABL1 P210 %IS PANELon BCR/ABL1 P210 %IS N/A Normal [facility] Comment on above: Order Comment: Speci men Type: BLOOD SPECIMEN Ordering Facility: [facility] Address: [address] [place] [address] Performed By: #### 2 10ISBP #### [facility] CLIA [id number] [address] [place] [address] [place] #### P210P #### [facility] CLIA [id number] [address] [place] [address] [place] BCR/ABL1 P210 MR N/A Normal [facility] Comment on above: Order Comment: Speci men Type: BLOOD SPECIMEN Ordering Facility: [facility] Address: [address] [place] [address] Performed By: #### 2 10ISBP #### [facility] CLIA [id number] [address] [place] [address] [place] #### P210P #### [facility] CLIA [id number] [address] [place] [address] [place] BCR/ABL1 P210 QUANTITATIVE P CR BLOODon 01-15-2025 BCR/ABL1 P210 INTERPRETATION Normal [facility] Comment on above: Order Comment: Speci men Type: BLOOD SPECIMEN Ordering Facility: [facility] Address: [address] [place] [address] Result Comment: BCR/ ABL1 p210 Quantitative PCR Laboratory Accession Number: [id number] Result: UNDETECTED MR: N/A %IS: N/A Interpretation: p210 BCR/ABL1 transcripts were not detected. This result does not exclude the possibility of very low level transcripts below the level of detection of this assay (>MR4.7), and a result of not detected does not exclude the possibility of other BCR/ABL1 transcripts not targeted by this assay. Methodology: The Key Ring QuantideX BCR/ABL IS assay is an FDA-cleared in vitro diagnostic test for the quantitation of BCR/ABL1 and ABL1 transcripts in total RNA from whole blood of diagnosed t(9;22) positive chronic myeloid leukemia patients expressing e13a2 and/or e14a2 fusion transcripts. This test does not detect p190 (e1a2) or other rare BCR/ABL1 transcripts. This assay has a limit of quantification and limit of detection of 0.002% IS or MR4.7. References: 1) Tommie et al, Blood 2006;108:28-37; Jose et al, Leukemia 2015;29:999-1003 Interpretation performed by Veda Guardado, PhD, HCLD Performed By: #### 2 10ISBP #### [facility] CLIA [id number] [address] [place] [address] [place] #### P210P #### [facility] CLIA [id number] [address] [place] [address] [place] CBC W Auto Differential pane l (Bld)on 01-15-2025 Basophils (Bld) [#/Vol] 0.04 10*3/uL Normal <0.11 [facility] Comment on above: Order Comment: Steffi yap Type: BLOOD SPECIMEN Ordering Facility: [facility] Address: [address] [place] [address] Performed By: #### 5 7021-8 #### [facility] CLIA [id number] [address] [place] [address] [place] Basophils/100 WBC (Bld) 0.7 % Normal [facility] Comment on above: Order Comment: Steffi yap Type: BLOOD SPECIMEN Ordering Facility: [facility] Address: [address] [place] [address] Performed By: #### 5 7021-8 #### [facility] CLIA [id number] [address] [place] [address] [place] Differential cell count method Nom (Bld) Auto Normal [facility] Comment on above: Order Comment: Speci men Type: BLOOD SPECIMEN Ordering Facility: [facility] Address: [address] [place] [address] Performed By: #### 5 7021-8 #### [facility] CLIA [id number] [address] [place] [address] [place] Eosinophils (Bld) [#/Vol] 0.13 10*3/uL Normal <0.46 [facility] Comment on above: Order Comment: Speci men Type: BLOOD SPECIMEN Ordering Facility: [facility] Address: [address] [place] [address] Performed By: #### 5 7021-8 #### [facility] CLIA [id number] [address] [place] [address] [place] Eosinophils/100 WBC (Bld) 2.2 % Normal [facility] Comment on above: Order Comment: Speci men Type: BLOOD SPECIMEN Ordering Facility: [facility] Address: [address] [place] [address] Performed By: #### 5 7021-8 #### [facility] CLIA [id number] [address] [place] [address] [place] Erythrocyte distribution width (RBC) [Ratio] 12.6 % Normal 11.5-15.0 [facility] Comment on above: Order Comment: Speci men Type: BLOOD SPECIMEN Ordering Facility: [facility] Address: [address] [place] [address] Performed By: #### 5 7021-8 #### [facility] CLIA [id number] [address] [place] [address] [place] Hematocrit (Bld) [Volume fraction] 45.8 % Normal 36.0-46.0 [facility] Comment on above: Order Comment: Speci men Type: BLOOD SPECIMEN Ordering Facility: [facility] Address: [address] [id number] Performed By: #### 5 7021-8 #### [facility] CLIA [id number] [address] [place] [address] [place] Hemoglobin (Bld) [Mass/Vol] 14.8 g/dL Normal 11.5-15.5 [facility] Comment on above: Order Comment: Speci men Type: BLOOD SPECIMEN Ordering Facility: [facility] Address: [address] [place] [address] Performed By: #### 5 7021-8 #### [facility] CLIA [id number] [address] [place] [address] [place] Immature granulocytes (Bld) [#/Vol] 10*3/uL Normal <0.10 [facility] Comment on above: Order Comment: Speci men Type: BLOOD SPECIMEN Ordering Facility: [facility] Address: [address] [place], [place] [id number] Performed By: #### 5 7021-8 #### [facility] CLIA [id number] [address] [place] [address] [place] Immature granulocytes/100 WBC (Bld) 0.2 % Normal [facility] Comment on above: Order Comment: Speci men Type: BLOOD SPECIMEN Ordering Facility: [facility] Address: [address] [place] [address] Performed By: #### 5 7021-8 #### [facility] CLIA [id number] [address] [place] [address] [place] Lymphocytes (Bld) [#/Vol] 2.22 10*3/uL Normal 1.00-4.00 [facility] Comment on above: Order Comment: Speci men Type: BLOOD SPECIMEN Ordering Facility: [facility] Address: [address] [place] [address] Performed By: #### 5 7021-8 #### [facility] CLIA [id number] [address] [place] [address] [place] Lymphocytes/100 WBC (Bld) 37.6 % Normal [facility] Comment on above: Order Comment: Speci men Type: BLOOD SPECIMEN Ordering Facility: [facility] Address: [address] [place] [address] Performed By: #### 5 7021-8 #### [facility] CLIA [id number] [address] [place] [address] [place] MCH (RBC) [Entitic mass] 29.4 pg Normal 26.0-34.0 [facility] Comment on above: Order Comment: Speci men Type: BLOOD SPECIMEN Ordering Facility: [facility] Address: [address] [place] [address] Performed By: #### 5 7021-8 #### [facility] CLIA [id number] [address] [place] [address] [place] MCHC (RBC) [Mass/Vol] 32.3 g/dL Normal 30.5-36.0 [facility] Comment on above: Order Comment: Speci men Type: BLOOD SPECIMEN Ordering Facility: [facility] Address: [address] [place] [address] Performed By: #### 5 7021-8 #### [id number] [address] [place] [address] [place] MCV (RBC) [Entitic vol] 90.9 fL Normal 80.0-100.0 [facility] Comment on above: Order Comment: Speci men Type: BLOOD SPECIMEN Ordering Facility: [facility] Address: [address] [place] [address] Performed By: #### 5 7021-8 #### [facility] CLIA [id number] [address] [place] [address] [place] Monocytes (Bld) [#/Vol] 0.50 10*3/uL Normal <0.87 [facility] Comment on above: Order Comment: Speci men Type: BLOOD SPECIMEN Ordering Facility: [facility] Address: [facility] [place] [address] Performed By: #### 5 7021-8 #### [facility] CLIA [id number] [address] [place] [address] [place] Monocytes/100 WBC (Bld) 8.5 % Normal [facility] Comment on above: Order Comment: Speci men Type: BLOOD SPECIMEN Ordering Facility: [facility] Address: [address] [place] [address] Performed By: #### 5 7021-8 #### [facility] CLIA [id number] [address] [place] [address] [place] Neutrophils (Bld) [#/Vol] 3.00 10*3/uL Normal 1.45-7.50 [facility] Comment on above: Order Comment: Speci men Type: BLOOD SPECIMEN Ordering Facility: [facility] Address: [address] [place] [address] Performed By: #### 5 7021-8 #### [facility] CLIA [id number] [address] [place] [address] [place] Neutrophils/100 WBC (Bld) 50.8 % Normal [facility] Comment on above: Order Comment: Speci men Type: BLOOD SPECIMEN Ordering Facility: [facility] Address: [address] [place] [address] Performed By: #### 5 7021-8 #### [facility] CLIA [id number] [address] [place] [address] [place] Nucleated RBC (Bld) [#/Vol] 10*3/uL Normal <0.01 [facility] Comment on above: Order Comment: Speci men Type: BLOOD SPECIMEN Ordering Facility: [facility] Address: [address] [place] [address] Performed By: #### 5 7021-8 #### [facility] CLIA [id number] [address] [place] [address] [place] Nucleated RBC/100 WBC (Bld) [Ratio] 0.0 /100 WBC Normal [facility] Comment on above: Order Comment: Speci men Type: BLOOD SPECIMEN Ordering Facility: [facility] Address: [address] [place], [place] [address] Performed By: #### 5 7021-8 #### [facility] CLIA [id number] [address] [place] [address] [place] Platelet mean volume (Bld) [Entitic vol] 8.5 fL Low 9.0-12.7 [facility] Comment on above: Order Comment: Speci men Type: BLOOD SPECIMEN Ordering Facility: [facility] Address: [address] [place], [place] [address] Performed By: #### 5 7021-8 #### [facility] CLIA [id number] [address] [place] [address] [place] Platelets (Bld) [#/Vol] 249 10*3/uL Normal 150-400 [facility] Comment on above: Order Comment: Speci men Type: BLOOD SPECIMEN Ordering Facility: [facility] Address: [address] [place] [address] Performed By: #### 5 7021-8 #### [facility] CLIA [id number] [address] [place] [address] [place] RBC (Bld) [#/Vol] 5.04 10*6/uL Normal 3.90-5.20 [facility] Comment on above: Order Comment: Speci men Type: BLOOD SPECIMEN Ordering Facility: [facility] Address: [address] [place] [address] Performed By: #### 5 7021-8 #### [facility] CLIA [id number] [address] [place], [place] [id number] [place] WBC (Bld) [#/Vol] 5.90 10*3/uL Normal 3.70-11.00 [facility] Comment on above: Order Comment: Speci men Type: BLOOD SPECIMEN Ordering Facility: [facility] Address: [address] [place] [address] Performed By: #### 5 7021-8 #### [facility] CLIA [id number] [address] [facility] CNPNon 01-13-2025 CNPN Telephone (HEMAWS) ----- BRYANNA RAMIREZ ([id number]) 1965 F Date Time Provider Department 01/13/25 SP LANG During your visit today, we recorded the following information about you: Susie Byrd 01/13/2025 1:21 PM Signed Patient calls stating she has labs due on 01/15. She is asking if we have secured authorization for the labs. Please advise. Allergies As of Date: 01/13/2025 Noted Allergy Reaction CATS 10/17/2005 DARVOCET A500 (PROPOXYPHENE N-PIPER*10/17/2005 ADHESIVE TAPE (ROSINS) 12/30/2013 14 - Other: See Comments Comments: Blisters CIPROFLOXACIN 07/13/2020 14 - Other: See Comments Comments: Prolonged QT COPAXONE (GLATIRAMER ACETATE) 10/16/2014 2 - Rash Date Reviewed: 07/20/2024 Reviewed by: Sp Lang DO - Fully Assessed Reason for Visit: Insurance Authorization [[id number]] Prescriptions as of 01/13/2025 - Calcium Citrate 250 mg calcium tab Take 1 tablet by mouth once daily. - vibegron (GEMTESA) 75 mg tablet Take 75 mg by mouth once daily. - Cholecalciferol, Vitamin D3, 5,000 unit cap Take 1 capsule by mouth once daily. - CETIRIZINE HCL (ZYRTEC ORAL) Take 1 tablet by mouth once daily as needed. Problem List As Of Date 01/13/2025 Noted Resolved ALLERGIC RHINITIS NOS [J30.9] 11/22/2005 NIPPLE DISCHARGE [N64.59] 04/10/2006 07/08/2013 Abnormal mammogram of right breast [R92.8] 05/23/2006 BENIGN NEOPLASM NOS [D36.9] 06/06/2006 Unspecified essential hypertension [I10] 11/22/2006 01/19/2014 MIXED HYPERLIPIDEMIA [E78.2] 11/22/2006 Nontoxic Uninodular Goiter [E04.1] 06/10/2009 CML (Chronic Myelocytic Leukemia) [C92.10] 03/29/2010 Optic neuritis [H46.9] 12/30/2013 Multiple sclerosis (HCC) [G35] 12/08/2014 Scotoma involving central area [H53.419] 10/29/2015 Iron deficiency anemia due to chronic blood los*04/21/2016 10/30/2016 Iron malabsorption [K90.9] 04/21/2016 Acute superficial gastritis with hemorrhage [K2*10/19/2016 06/05/2017 Iron deficiency anemia secondary to inadequate *10/30/2016 Personal history of myeloid leukemia [Z85.6] 05/10/2021 Abnormal mammogram with microcalcification [R92*06/15/2022 Intraductal papilloma of left breast [D24.2] 06/15/2022 Intraductal papilloma of breast, right [D24.1] 04/04/2023 Encounter Status:Closed by ELINA DAY on 01/13/25 [facility] CNOVSPon 07-18-2024 CNOVSP Visit (SP) Office (HEMAWS) ----- BRYANNA RAMIREZ ([id number]) 1965 F Date Time Provider Department 07/18/24 4:10 PM SP LANG ADRIANAJOSE ANGEL During your visit today, we recorded the following information about you: Temperature Pulse Blood pressure Weight 98 degrees 78/minute 130/86 83.5 kg Sp Lang, 07/20/2024 10:34 AM Signed Diagnosis: 1) CML HPI: The patient is a 58 yo female with h/o mild, but slow increase in total WBC and platelet count over the 2 years prior to diagnosis of CML. Was seen here for initial consultation 02/2010. PBS suggestive of CML. FISH for BCR/ABL on peripheral WBCs positive. Baseline bone marrow biopsy 03/16/10; karyotype 18 of 20 metaphases had BCR/ABL. No other cytogenetic abnormalities. Baseline QTc was 443 msec. Diagnosed with MS following several episodes optic neuritis in the fall of 2014. Diagnosed with C diff colitis when seen because diarrhea did not subside around 03/17. CT 03/19--Diffuse pericolonic inflammatory change and wall thickening of the colon. Treated with Flagyl. Previous therapy: 1) Nilotinib started 04/15/2010. Small b/l effusion had been only toxicity of note. Resolved after prn use Lasix. Interim history: Remains off nilotinib. No recurrent symptoms of MS. Feels well in general and has no complaints today. PMH, medications and allergies as below personally reviewed by me today. Any changes documented in appropriate section. ROS: Constitutional: No recent fever. No night sweats. No change in appetite. HEENT: No recent change in voice or hearing. Resp: No cough, wheeze and hemoptysis. No shortness of breath at rest. CVS: No exertional chest pain, PND, orthopnea and LE edema. GI: No dysphagia or odynophagia. No abdominal pain bloating or distention. : No dysuria or gross hematuria. Derm: No rash. Heme: No unusual bleeding or unexplained bruising. Psych: Normal mood. PHYSICAL EXAM: Vitals: Blood pressure 130/86, pulse 78, temperature 36.7 ?C (98 ?F), temperature source Temporal, weight 83.5 kg (184 lb), last menstrual period 05/09/2016, SpO2 98%. Well-appearing and in no acute distress. EYES: Sclerae are anicteric bilaterally. LYMPHATIC: There is no palpable cervical or supraclavicular adenopathy. CARDIOVASCULAR: Rhythm is regular. ABDOMEN: The abdomen is nondistended. No splenomegaly. Extremities: No swelling or edema. SKIN: No jaundice. LABS: ASSESSMENT/PLAN: (C92.10) CML (chronic myelocytic leukemia) (HCC) (primary encounter diagnosis) Assessment: -The patient is a 58 yo female diagnosed with chronic phase CML in 2009. Complete molecular remission for 9 years--undetectable transcripts as of 09/26/2010. Only exception was May 2011 where there was a weak positive detection but not quantifiable. PCR 05/31/2020 revealed transcripts below level of quantification. Most recent bone marrow aspirate/biopsy and karyotype was 11/08/2011--no morphologic evidence of CML and karyotype 46 XX []. Insurance is only covering one PCR test per year. -Maintaining deep to undetectable transcript level for 4+ years. -Reviewed labs and current molecular testing. BCR::ABL fusion undetectable. -Low risk that she would have recurrence/significant progression in next 6 months. -Discussed calling for unexplained fatigue, unusual bleeding, unexplained bruising or left upper quadrant pain/early satiety in the interim. Plan: -CBC/PCR BCR/ABL in about 6 months. -Same labs then OV in about a year. Portions of this documentation were copied and pasted from my previous office visit note dated 01/01/2024 in order to provide a cohesive continuity of the history. The note has been reviewed and edited and updated as necessary. Sp Lang DO Referring Provider: SP LANG [[id number]] Allergies As of Date: 07/18/2024 Noted Allergy Reaction CATS 10/17/2005 DARVOCET A500 (PROPOXYPHENE N-PIPER*10/17/2005 ADHESIVE TAPE (ROSINS) 12/30/2013 14 - Other: See Comments Comments: Blisters CIPROFLOXACIN 07/13/2020 14 - Other: See Comments Comments: Prolonged QT COPAXONE (GLATIRAMER ACETATE) 10/16/2014 2 - Rash Date Reviewed: 07/18/2024 Reviewed by: Tara Hewitt Ma, MA - Fully Assessed Reason for Visit: Established Patient [175] Primary Visit Diagnosis:CML (chronic myelocytic leukemia) ([facility]) [C92.10] Level of Service: OFFICE/OUTPATIENT ESTABLISHED LOW MDM 20 MIN [10774] Additional E/M codes: VISIT CPLX INHERENT EANDM ASSOC WITH MED * Follow-up and Disposition History for Encounter Date Provider Department Center 07/18/2024 [id number] LANG [facility] Prescriptions as of 07/20/2024 - Calcium Citrate 250 mg calcium tab Take 1 tablet by mouth once daily. - vibegron (GEMTESA) 75 mg tablet Take 75 mg by mouth once daily. - Cholecalciferol, Vitamin D3, 5,000 unit cap Take 1 capsule by mouth once daily. - CETIRIZINE (more content not included)... Normal [facility] BCR/ABL1 P210 %IS PANELon BCR/ABL1 P210 %IS N/A Normal [facility] Comment on above: Order Comment: Speci men Type: BLOOD SPECIMEN Ordering Facility: [facility] Address: [address] [place] [address] Performed By: #### P 210P #### [facility] CLIA [id number] [address] [place] [address] [place] #### [id number] #### [facility] CLIA [id number] [address] [place] [address] [place] BCR/ABL1 P210 MR N/A Normal [facility] Comment on above: Order Comment: Speci men Type: BLOOD SPECIMEN Ordering Facility: [facility] Address: [address] [place] [address] Performed By: #### P 210P #### [facility] CLIA [id number] [address] [place] [address] [place] #### [id number] #### [facility] CLIA [id number] [address] [place] [address] [place] BCR/ABL1 P210 QUANTITATIVE P CR BLOODon 06-30-2024 BCR/ABL1 P210 INTERPRETATION Normal [facility] Comment on above: Order Comment: Speci men Type: BLOOD SPECIMEN Ordering Facility: [facility] Address: [address] [place] [address] Result Comment: BCR/ ABL1 p210 Quantitative PCR Laboratory Accession Number: [id number] Result: UNDETECTED MR: N/A %IS: N/A Interpretation: p210 BCR/ABL1 transcripts were not detected. This result does not exclude the possibility of very low level transcripts below the level of detection of this assay (>MR4.7), and a result of not detected does not exclude the possibility of other BCR/ABL1 transcripts not targeted by this assay. Methodology: The Key Ring QuantideX BCR/ABL IS assay is an FDA-cleared in vitro diagnostic test for the quantitation of BCR/ABL1 and ABL1 transcripts in total RNA from whole blood of diagnosed t(9;22) positive chronic myeloid leukemia patients expressing e13a2 and/or e14a2 fusion transcripts. This test does not detect p190 (e1a2) or other rare BCR/ABL1 transcripts. This assay has a limit of quantification and limit of detection of 0.002% IS or MR4.7. References: 1) Tommie et al, Blood 2006;108:28-37; Jose et al, Leukemia 2015;29:999-1003 As reviewed by Sofia Ferguson, PhD, [facility] Performed By: #### P 210P #### [facility] CLIA [id number] [address] [place] [address] [place] #### 210ISBP #### [facility] CLIA [id number] [address] [place] [address] [place] CBC W Auto Differential pane l (Bld)on 06-30-2024 Basophils (Bld) [#/Vol] 0.04 10*3/uL Normal <0.11 [facility] Comment on above: Order Comment: Speci men Type: BLOOD SPECIMEN Ordering Facility: [facility] Address: [address] [place] [address] Performed By: #### 5 7021-8 #### [facility] CLIA [id number] [address] [place] [address] [place] Basophils/100 WBC (Bld) 0.6 % Normal [facility] Comment on above: Order Comment: Speci men Type: BLOOD SPECIMEN Ordering Facility: [facility] Address: [address] [place] [address] Performed By: #### 5 7021-8 #### [facility] CLIA [id number] [address] [place] [address] [place] Differential cell count method Nom (Bld) Auto Normal [facility] Comment on above: Order Comment: Speci men Type: BLOOD SPECIMEN Ordering Facility: [facility] Address: [address] [place] [address] Performed By: #### 5 7021-8 #### [facility] CLIA [id number] [address] [place] [address] [place] Eosinophils (Bld) [#/Vol] 0.15 10*3/uL Normal <0.46 [facility] Comment on above: Order Comment: Speci men Type: BLOOD SPECIMEN Ordering Facility: [facility] Address: [address] [place] [address] Performed By: #### 5 7021-8 #### [facility] CLIA [id number] [address] [place] [address] [place] Eosinophils/100 WBC (Bld) 2.2 % Normal [facility] Comment on above: Order Comment: Speci men Type: BLOOD SPECIMEN Ordering Facility: [facility] Address: [address] [place] [address] Performed By: #### 5 7021-8 #### [facility] CLIA [id number] [address] [place] [address] [place] Erythrocyte distribution width (RBC) [Ratio] 12.6 % Normal 11.5-15.0 [facility] Comment on above: Order Comment: Speci men Type: BLOOD SPECIMEN Ordering Facility: [facility] Address: [address] [place] [address] Performed By: #### 5 7021-8 #### [facility] CLIA [id number] [address] [place] [address] [place] Hematocrit (Bld) [Volume fraction] 43.6 % Normal 36.0-46.0 [facility] Comment on above: Order Comment: Speci men Type: BLOOD SPECIMEN Ordering Facility: [facility] Address: [address] [place] [address] Performed By: #### 5 7021-8 #### [facility] CLIA [id number] [address] [place] [address] [place] Hemoglobin (Bld) [Mass/Vol] 14.2 g/dL Normal 11.5-15.5 [facility] Comment on above: Order Comment: Speci men Type: BLOOD SPECIMEN Ordering Facility: [facility] Address: [address] [place] [address] Performed By: #### 5 7021-8 #### [facility] CLIA [id number] [address] [place] [address] [place] Immature granulocytes (Bld) [#/Vol] 10*3/uL Normal <0.10 [facility] Comment on above: Order Comment: Speci men Type: BLOOD SPECIMEN Ordering Facility: [facility] Address: [address] [place] [address] Performed By: #### 5 7021-8 #### [facility] CLIA [id number] [address] [place] [address] [place] Immature granulocytes/100 WBC (Bld) 0.3 % Normal [facility] Comment on above: Order Comment: Speci men Type: BLOOD SPECIMEN Ordering Facility: [facility] Address: [address] [place] [address] Performed By: #### 5 7021-8 #### [facility] CLIA [id number] [address] [place] [address] [place] Lymphocytes (Bld) [#/Vol] 2.26 10*3/uL Normal 1.00-4.00 [facility] Comment on above: Order Comment: Speci men Type: BLOOD SPECIMEN Ordering Facility: [facility] Address: [address] [place] [address] Performed By: #### 5 7021-8 #### [facility] CLIA [id number] [address] [place] [address] [place] Lymphocytes/100 WBC (Bld) 33.0 % Normal [facility] Comment on above: Order Comment: Speci men Type: BLOOD SPECIMEN Ordering Facility: [facility] Address: [address] [place] [address] Performed By: #### 5 7021-8 #### [facility] CLIA [id number] [address] [place] [address] [place] MCH (RBC) [Entitic mass] 30.0 pg Normal 26.0-34.0 [facility] Comment on above: Order Comment: Speci men Type: BLOOD SPECIMEN Ordering Facility: [facility] Address: [address] [place] [address] Performed By: #### 5 7021-8 #### [facility] CLIA [id number] [address] [place] [address] [place] MCHC (RBC) [Mass/Vol] 32.6 g/dL Normal 30.5-36.0 [facility] Comment on above: Order Comment: Speci men Type: BLOOD SPECIMEN Ordering Facility: [facility] Address: [address] [place] [address] Performed By: #### 5 7021-8 #### [facility] CLIA [id number] [address] [place] [address] [place] MCV (RBC) [Entitic vol] 92.0 fL Normal 80.0-100.0 [facility] Comment on above: Order Comment: Speci men Type: BLOOD SPECIMEN Ordering Facility: [facility] Address: [address] [place] [address] Performed By: #### 5 7021-8 #### [facility] CLIA [id number] [address] [place] [address] [place] Monocytes (Bld) [#/Vol] 0.46 10*3/uL Normal <0.87 [facility] Comment on above: Order Comment: Speci men Type: BLOOD SPECIMEN Ordering Facility: [facility] Address: [address] [place] [address] Performed By: #### 5 7021-8 #### [facility] CLIA [id number] [address] [place] [address] [place] Monocytes/100 WBC (Bld) 6.7 % Normal [facility] Comment on above: Order Comment: Speci men Type: BLOOD SPECIMEN Ordering Facility: [facility] Address: [address] [place] [address] Performed By: #### 5 7021-8 #### [facility] CLIA [id number] [address] [place] [address] [place] Neutrophils (Bld) [#/Vol] 3.92 10*3/uL Normal 1.45-7.50 [facility] Comment on above: Order Comment: Speci men Type: BLOOD SPECIMEN Ordering Facility: [facility] Address: [address] [place] [address] Performed By: #### 5 7021-8 #### [facility] CLIA [id number] [address] [place] [address] [place] Neutrophils/100 WBC (Bld) 57.2 % Normal [facility] Comment on above: Order Comment: Speci men Type: BLOOD SPECIMEN Ordering Facility: [facility] Address: [address] [place] [address] Performed By: #### 5 7021-8 #### [facility] CLIA [id number] [address] [place] [address] [place] Nucleated RBC (Bld) [#/Vol] 10*3/uL Normal <0.01 [facility] Comment on above: Order Comment: Speci men Type: BLOOD SPECIMEN Ordering Facility: [facility] Address: [address] [place] [address] Performed By: #### 5 7021-8 #### [facility] CLIA [id number] [address] [place] [address] [place] Nucleated RBC/100 WBC (Bld) [Ratio] 0.0 /100 WBC Normal [facility] Comment on above: Order Comment: Speci men Type: BLOOD SPECIMEN Ordering Facility: [facility] Address: [address] [place] [address] Performed By: #### 5 7021-8 #### [facility] CLIA [id number] [address] [place] [address] [place] Platelet mean volume (Bld) [Entitic vol] 8.4 fL Low 9.0-12.7 [facility] Comment on above: Order Comment: Speci men Type: BLOOD SPECIMEN Ordering Facility: [facility] Address: [address] [place] [address] Performed By: #### 5 7021-8 #### [facility] CLIA [id number] [address] [place] [address] [place] Platelets (Bld) [#/Vol] 262 10*3/uL Normal 150-400 [facility] Comment on above: Order Comment: Speci men Type: BLOOD SPECIMEN Ordering Facility: [facility] Address: [address] [place] [address] Performed By: #### 5 7021-8 #### [facility] CLIA [id number] [address] [place] [address] [place] RBC (Bld) [#/Vol] 4.74 10*6/uL Normal 3.90-5.20 [facility] Comment on above: Order Comment: Speci men Type: BLOOD SPECIMEN Ordering Facility: [facility] Address: [address] [place] [address] Performed By: #### 5 7021-8 #### [facility] CLIA [id number] [address] [place] [address] [place] WBC (Bld) [#/Vol] 6.85 10*3/uL Normal 3.70-11.00 [facility] Comment on above: Order Comment: Speci men Type: BLOOD SPECIMEN Ordering Facility: [facility] Address: [address] [place] [address] Performed By: #### 5 7021-8 #### [facility] CLIA [id number] [address] [place] [address] [place] CBC W Auto Differential pane l (Bld)on 04-09-2024 Basophils (Bld) [#/Vol] 0.05 10*3/uL Normal <0.11 [facility] Comment on above: Order Comment: Speci men Type: BLOOD SPECIMEN Ordering Facility: [facility] Address: [address] [place] [address] Performed By: #### 5 7021-8 #### [facility] CLIA [id number] [address] [place] [address] [place] Basophils/100 WBC (Bld) 0.7 % Normal [facility] Comment on above: Order Comment: Speci men Type: BLOOD SPECIMEN Ordering Facility: [facility] Address: [address] [place] [address] Performed By: #### 5 7021-8 #### [facility] CLIA [id number] [address] [place] [address] [place] Differential cell count method Nom (Bld) Auto Normal [facility] Comment on above: Order Comment: Speci men Type: BLOOD SPECIMEN Ordering Facility: [facility] Address: [address] [place] [address] Performed By: #### 5 7021-8 #### [facility] CLIA [id number] [address] [place] [address] [place] Eosinophils (Bld) [#/Vol] 0.21 10*3/uL Normal <0.46 [facility] Comment on above: Order Comment: Speci men Type: BLOOD SPECIMEN Ordering Facility: [facility] Address: [address] [place] [address] Performed By: #### 5 7021-8 #### [facility] CLIA [id number] [address] [place] [address] [place] Eosinophils/100 WBC (Bld) 2.8 % Normal [facility] Comment on above: Order Comment: Speci men Type: BLOOD SPECIMEN Ordering Facility: [facility] Address: [address] [place] [address] Performed By: #### 5 7021-8 #### [facility] CLIA [id number] [address] [place] [address] [place] Erythrocyte distribution width (RBC) [Ratio] 12.7 % Normal 11.5-15.0 [facility] Comment on above: Order Comment: Speci men Type: BLOOD SPECIMEN Ordering Facility: [facility] Address: [address] [place] [address] Performed By: #### 5 7021-8 #### [facility] CLIA [id number] [address] [place] [address] [place] Hematocrit (Bld) [Volume fraction] 43.7 % Normal 36.0-46.0 [facility] Comment on above: Order Comment: Speci men Type: BLOOD SPECIMEN Ordering Facility: [facility] Address: [address] [place] [address] Performed By: #### 5 7021-8 #### [facility] CLIA [id number] [address] [place] [address] [place] Hemoglobin (Bld) [Mass/Vol] 13.9 g/dL Normal 11.5-15.5 [facility] Comment on above: Order Comment: Speci men Type: BLOOD SPECIMEN Ordering Facility: [facility] Address: [address] [place] [address] Performed By: #### 5 7021-8 #### [facility] CLIA [id number] [address] [place] [address] [place] Immature granulocytes (Bld) [#/Vol] 10*3/uL Normal <0.10 [facility] Comment on above: Order Comment: Speci men Type: BLOOD SPECIMEN Ordering Facility: [facility] Address: [address] [place] [address] Performed By: #### 5 7021-8 #### [facility] CLIA [id number] [address] [place] [address] [place] Immature granulocytes/100 WBC (Bld) 0.3 % Normal [facility] Comment on above: Order Comment: Speci men Type: BLOOD SPECIMEN Ordering Facility: [facility] Address: [address] [place] [address] Performed By: #### 5 7021-8 #### [facility] CLIA [id number] [address] [place] [address] [place] Lymphocytes (Bld) [#/Vol] 2.51 10*3/uL Normal 1.00-4.00 [facility] Comment on above: Order Comment: Speci men Type: BLOOD SPECIMEN Ordering Facility: [facility] Address: [address] [place] [address] Performed By: #### 5 7021-8 #### [facility] CLIA [id number] [address] [place] [address] [place] Lymphocytes/100 WBC (Bld) 33.9 % Normal [facility] Comment on above: Order Comment: Speci men Type: BLOOD SPECIMEN Ordering Facility: [facility] Address: [address] [place] [address] Performed By: #### 5 7021-8 #### [facility] CLIA [id number] [address] [place] [address] [place] MCH (RBC) [Entitic mass] 30.1 pg Normal 26.0-34.0 [facility] Comment on above: Order Comment: Speci men Type: BLOOD SPECIMEN Ordering Facility: [facility] Address: [address] [place] [address] Performed By: #### 5 7021-8 #### [facility] CLIA [id number] [address] [place] [address] [place] MCHC (RBC) [Mass/Vol] 31.8 g/dL Normal 30.5-36.0 [facility] Comment on above: Order Comment: Speci men Type: BLOOD SPECIMEN Ordering Facility: [facility] Address: [address] [place] [address] Performed By: #### 5 7021-8 #### [facility] CLIA [id number] [address] [place] [address] [place] MCV (RBC) [Entitic vol] 94.6 fL Normal 80.0-100.0 [facility] Comment on above: Order Comment: Speci men Type: BLOOD SPECIMEN Ordering Facility: [facility] Address: [address] [place] [address] Performed By: #### 5 7021-8 #### [facility] CLIA [id number] [address] [place] [address] [place] Monocytes (Bld) [#/Vol] 0.54 10*3/uL Normal <0.87 [facility] Comment on above: Order Comment: Speci men Type: BLOOD SPECIMEN Ordering Facility: [facility] Address: [address] [place] [address] Performed By: #### 5 7021-8 #### [facility] CLIA [id number] [address] [place] [address] [place] Monocytes/100 WBC (Bld) 7.3 % Normal [facility] Comment on above: Order Comment: Speci men Type: BLOOD SPECIMEN Ordering Facility: [facility] Address: [address] [place] [address] Performed By: #### 5 7021-8 #### [facility] CLIA [id number] [address] [place] [address] [place] Neutrophils (Bld) [#/Vol] 4.08 10*3/uL Normal 1.45-7.50 [facility] Comment on above: Order Comment: Speci men Type: BLOOD SPECIMEN Ordering Facility: [facility] Address: [address] [place] [address] Performed By: #### 5 7021-8 #### [facility] CLIA [id number] [address] [place] [address] [place] Neutrophils/100 WBC (Bld) 55.0 % Normal [facility] Comment on above: Order Comment: Speci men Type: BLOOD SPECIMEN Ordering Facility: [facility] Address: [address] [place] [address] Performed By: #### 5 7021-8 #### [facility] CLIA [id number] [address] [place] [address] [place] Nucleated RBC (Bld) [#/Vol] 10*3/uL Normal <0.01 [facility] Comment on above: Order Comment: Speci men Type: BLOOD SPECIMEN Ordering Facility: [facility] Address: [address] [place] [address] Performed By: #### 5 7021-8 #### [facility] CLIA [id number] [address] [place] [address] [place] Nucleated RBC/100 WBC (Bld) [Ratio] 0.0 /100 WBC Normal [facility] Comment on above: Order Comment: Speci men Type: BLOOD SPECIMEN Ordering Facility: [facility] Address: [address] [place] [address] Performed By: #### 5 7021-8 #### [facility] CLIA [id number] [address] [place] [address] [place] Platelet mean volume (Bld) [Entitic vol] 9.3 fL Normal 9.0-12.7 [facility] Comment on above: Order Comment: Speci men Type: BLOOD SPECIMEN Ordering Facility: [facility] Address: [address] [place] [address] Performed By: #### 5 7021-8 #### [facility] CLIA [id number] [address] [place] [address] [place] Platelets (Bld) [#/Vol] 282 10*3/uL Normal 150-400 [facility] Comment on above: Order Comment: Speci men Type: BLOOD SPECIMEN Ordering Facility: [facility] Address: [address] [place] [address] Performed By: #### 5 7021-8 #### [facility] CLIA [id number] [address] [place] [address] [place] RBC (Bld) [#/Vol] 4.62 10*6/uL Normal 3.90-5.20 [facility] Comment on above: Order Comment: Speci men Type: BLOOD SPECIMEN Ordering Facility: [facility] Address: [address] [place] [address] Performed By: #### 5 7021-8 #### [facility] CLIA [id number] [address] [place] [address] [place] WBC (Bld) [#/Vol] 7.41 10*3/uL Normal 3.70-11.00 [facility] Comment on above: Order Comment: Speci men Type: BLOOD SPECIMEN Ordering Facility: [facility] Address: [address] [place] [address] Performed By: #### 5 7021-8 #### [facility] CLIA [id number] [address] [place] [address] [place] BRAIN & CERVICAL SPINE MRI D ISCBONNIEE DATAon 08-30-2023 Brain Enhancing Lesions None [facility] Brain Interval Improvement None [facility] Brain New T2 Lesions None Site [facility] Brain Other Significant MRI Findings None. Interval resolution of inflammatory changes in the left maxillary, anterior ethmoid and left frontal sinuses since the prior study. [facility] Brain Parenchymal Volume Loss None [facility] Brain T2 [place] of Disease Mild [facility] MRI BRAIN WO/W IVCONon 08-[address] [facility] [address] for calcium scoring WO co ntrast and CTA W contrast IV Heart and coronary arterieson 07-27-2023 1. Coronary artery calcium score of 0*. *Coronary artery calcium scoring may be helpful in predicting the risk for future coronary heart disease events. According to the [place] [employer] Clinical Expert Consensus Task Force, such testing provides important prognostic information in patients with more than one coronary heart disease risk factor. The coronary artery calcium score correlates with the annual risk of a non-fatal myocardial infarction or coronary heart disease . Coronary artery score Annual Risk 0-99 0.4% 100-399 1.3% >400 2.4% These three breakpoints correspond to lower, intermediate and high risk states for future coronary events. Such information should be used, along with appropriate clinical judgment, to make decisions regarding the intensity of risk factor management strategies to treat blood lipids and to modify other non-lipid coronary risk factors. Reference: [place] P et al. Circulation. 2007; 115:402-426 MACRO: None. Signed by: Isaías Camarillo 07/27/2023 12:15 PM Dictation workstation: [id number] Interpreted By: Isaías Prado, STUDY: CT CARDIAC SCORING WO IV CONTRAST; 07/26/2023 8:00 am INDICATION: Signs/Symptoms:CARDIAC SCREENING HYPERCHOLESTEREMIA. COMPARISON: None. ACCESSION NUMBER(S): [id number] ORDERING CLINICIAN: MIESHA GUILLEN TECHNIQUE: Using prospective ECG gating, CT scan of the coronary arteries was performed without intravenous contrast. Coronary calcium scoring was performed according to the method of [place]. FINDINGS: The score and distribution of calcium in the coronary arteries is as follows: LM: 0. LAD: 0. LCx: 0. RCA: 0. Total: 0. The visualized segments of the lungs are normally expanded. The visualized mid/lower ascending thoracic aorta measures 3.0 cm in diameter. The heart is mildly enlarged. Trace pericardial fluid.. No gross evidence of mediastinal or hilar lymphadenopathy is identified. [facility] Isaías Camarillo MD - 07/27/2023 Interpreted By: Isaías Camarillo, STUDY: CT CARDIAC SCORING WO IV CONTRAST; 07/26/2023 8:00 am INDICATION: Signs/Symptoms:CARDIAC SCREENING HYPERCHOLESTEREMIA. COMPARISON: None. ACCESSION NUMBER(S): [id number] ORDERING CLINICIAN: MIESHA GUILLEN TECHNIQUE: Using prospective ECG gating, CT scan of the coronary arteries was performed without intravenous contrast. Coronary calcium scoring was performed according to the method of Agatston. FINDINGS: The score and distribution of calcium in the coronary arteries is as follows: LM: 0. LAD: 0. LCx: 0. RCA: 0. Total: 0. The visualized segments of the lungs are normally expanded. The visualized mid/lower ascending thoracic aorta measures 3.0 cm in diameter. The heart is mildly enlarged. Trace pericardial fluid.. No gross evidence of mediastinal or hilar lymphadenopathy is identified. IMPRESSION: 1. Coronary artery calcium score of 0*. *Coronary artery calcium scoring may be helpful in predicting the risk for future coronary heart disease events. According to the [place] [employer] Clinical Expert Consensus Task Force, such testing provides important prognostic information in patients with more than one coronary heart disease risk factor. The coronary artery calcium score correlates with the annual risk of a non-fatal myocardial infarction or coronary heart disease . Coronary artery score Annual Risk 0-99 0.4% 100-399 1.3% >400 2.4% These three breakpoints correspond to lower, intermediate and high risk states for future coronary events. Such information should be used, along with appropriate clinical judgment, to make decisions regarding the intensity of risk factor management strategies to treat blood lipids and to modify other non-lipid coronary risk factors. Reference: [place] P et al. Circulation. 2007; 115:402-426 MACRO: None. Signed by: Isaías Camarillo 07/27/2023 12:15 PM Dictation workstation: [id number] [facility] Work Phone: CT for calcium scoring WO co ntrast and CTA W contrast IV Heart and coronary arteriesOrdered By: Isaías Camarillo on 07-27-2023 [facility] Work Phone: CT CARDIAC SCORING WO IV CON TRASTon 07-26-2023 CT CARDIAC SCORING WO IV CONTRAST Interpreted By: Isaías Camarillo, STUDY: CT CARDIAC SCORING WO IV CONTRAST; 07/26/2023 8:00 am INDICATION: Signs/Symptoms:CARDIAC SCREENING HYPERCHOLESTEREMIA. COMPARISON: None. ACCESSION NUMBER(S): [id number] ORDERING CLINICIAN: MIESHA GUILLEN TECHNIQUE: Using prospective ECG gating, CT scan of the coronary arteries was performed without intravenous contrast. Coronary calcium scoring was performed according to the method of Agatston. FINDINGS: The score and distribution of calcium in the coronary arteries is as follows: LM: 0. LAD: 0. LCx: 0. RCA: 0. Total: 0. The visualized segments of the lungs are normally expanded. The visualized mid/lower ascending thoracic aorta measures 3.0 cm in diameter. The heart is mildly enlarged. Trace pericardial fluid.. No gross evidence of mediastinal or hilar lymphadenopathy is identified. IMPRESSION: 1. Coronary artery calcium score of 0*. *Coronary artery calcium scoring may be helpful in predicting the risk for future coronary heart disease events. According to the [place] [employer] Clinical Expert Consensus Task Force, such testing provides important prognostic information in patients with more than one coronary heart disease risk factor. The coronary artery calcium score correlates with the annual risk of a non-fatal myocardial infarction or coronary heart disease . Coronary artery score Annual Risk 0-99 0.4% 100-399 1.3% >400 2.4% These three breakpoints correspond to lower, intermediate and high risk states for future coronary events. Such information should be used, along with appropriate clinical judgment, to make decisions regarding the intensity of risk factor management strategies to treat blood lipids and to modify other non-lipid coronary risk factors. Reference: [place] P et al. Circulation. 2007; 115:402-426 MACRO: None. Signed by: Isaías Camarillo 07/27/2023 12:15 PM Dictation workstation: [id number] [facility] CT for calcium scoring WO co ntrast and CTA W contrast IV Heart and coronary arterieson 07-26-2023 Radiology Study observation (narrative) [facility] Work Phone: Absolute lymphocyte countOrd ered By: Miesha Guillen on 06-14-2023 Lymphocytes Auto (Unsp spec) [#/Vol] 1.63 10*3/uL 0.83-4.51 [facility] Basophil percentageOrdered B y: Miesha Guillen on 06-14-2023 Basophil percentage 0-5 SEEN /hpf 0-5 [facility] Basophil percentage 109 mg/dL 0-149 [facility] Basophils/100 WBC (Bld) 0.6 % 0-1 [facility] Bilirubin [Mass/Vol] 0.60 mg/dL 0.20-1.00 [facility] Comment on above: For patients on eltr ombopag therapy, use of Dimension [place] TBIL is not recommended. Chloride [Moles/Vol] 105 mmol/L 98-107 [facility] Cholesterol [Mass/Vol] 244 mg/dL <200 [facility] Comment on above: <200 mg/dL Desirable 200-240 mg/dL Borderline >240 mg/dL High Risk Eosinophils/100 WBC (Bld) 2.3 % 0-5 [facility] Glucose [Mass/Vol] 95 mg/dL 74-106 [facility] Neutrophils (Bld) [#/Vol] 4.4 10*3/uL 2.0-7.7 [facility] Neutrophils/100 WBC (Bld) 65.3 % 47-70 [facility] Potassium [Moles/Vol] 3.9 mmol/L 3.5-5.1 [facility] Protein [Mass/Vol] 7.9 g/dL 6.4-8.2 [facility] Sodium [Moles/Vol] 139 mmol/L 136-145 [facility] Triglyceride [Mass/Vol] 116 mg/dL <199 [facility] Comment on above: The drugs N-Acetylcy steine and Metamizole may falsely depress this assay.Serum Triglycerides Reference Interval Normal <150 mg/dL Borderline high 150 - 199 mg/dL High 200 - 499 mg/dL Very High > or = 500 mg/dL WBC (Bld) [#/Vol] 6.8 10*3/uL 4.4-11.0 [facility] Bilirubin Test strip Ql (U)O rdered By: Miesha Guillen on 06-14-2023 Bilirubin Ql (U) Negative Negative [facility] Blood erythrocytes count (nu mber/volume)Ordered By: Miesha Guillen on 06-14-2023 RBC (Bld) [#/Vol] 5.00 10*6/uL 4.2-5.4 [facility] Blood hemoglobin measurement (mass/volume)Ordered By: Miesha Guillen on 06-14-2023 Hemoglobin (Bld) [Mass/Vol] 15.0 g/dL 12.0-15.0 [facility] Blood lymphocytes/100 leukoc ytesOrdered By: Miesha Guillen on 06-14-2023 Lymphocytes/100 WBC (Bld) 23.9 % 19-41 [facility] Blood monocytes/100 leukocyt esOrdered By: Miesha Guillen on 06-14-2023 Monocytes/100 WBC (Bld) 7.5 % 0-10 [facility] Blood platelet mean volumeOr dered By: Miesha Guillen on 06-14-2023 Platelet mean volume (Bld) [Entitic vol] 8.8 fL 6.2-12.0 [facility] Determination of erythrocyte mean corpuscular volume (MCV)Ordered By: Miesha Guillen on 06-14-2023 MCV (RBC) [Entitic vol] 93.8 fL 81-99 [facility] Hematocrit Auto (Bld) [Volum e fraction]Ordered By: Miesha Guillen on 06-14-2023 Hematocrit (Bld) [Volume fraction] 46.9 % 37-47 [facility] Ketones Test strip Ql (U)Ord ered By: Miesha Guillen on 06-14-2023 Ketones Ql (U) Negative Negative [facility] Laboratory - Chemistry and C hemistry - challengeOrdered By: Miesha Guillen on 06-14-2023 ALP [Catalytic activity/Vol] 88 U/L 45-117 [facility] ALT [Catalytic activity/Vol] 23 U/L 13-56 [facility] CO2 [Moles/Vol] 27.0 mmol/L 21.0-32.0 [facility] Globulin (S) [Mass/Vol] 4.0 g/dL 2.2-4.2 [facility] Urea nitrogen/Creatinine [Mass ratio] 16.8 mg/mg 10-20 [facility] - Hematology and Cell countsOrdered By: Miesha Guillen on 06-14-2023 Erythrocyte distribution width (RBC) [Entitic vol] 45.1 fL 35.1-43.9 [facility] Erythrocyte distribution width (RBC) [Ratio] 13.2 % 11.6-14.6 [facility] Immature granulocytes/100 WBC (Bld) 0.400 % 0.0-0.9 [facility] Comment on above: IG% - Immature Granu locytes (promyelocytes, myelocytes and metamyelocytes) > 1% indicates that a LEFT SHIFT is Present. MCH (RBC) [Entitic mass] 30.0 pg 27.0-32.0 [facility] Nucleated RBC/100 WBC (Bld) [Ratio] 0 % 0-5 [facility] MCHC Auto (RBC) [Mass/Vol]Or dered By: Miesha Guillen on 06-14-2023 MCHC (RBC) [Mass/Vol] 32.0 g/dL 32-36 [facility] Mucus LM Ql (Urine sed)Order ed By: Miesha Guillen on 06-14-2023 Mucus Ql (Urine sed) 0 SEEN /hpf [facility] Nitrite Test strip Ql (U)Ord ered By: Miesha Guillen on 06-14-2023 Nitrite Ql (U) Negative Negative [facility] No Panel InformationOrdered By: Miesha Guillen on 06-14-2023 Estimated GFR (MDRD) Amer 100 mL/min >60 [facility] Comment on above: GFR Calc Estimated GFR (MDRD) Non-Af Amer 82 mL/min >60 [facility] Comment on above: Non- GFR Calc Insulin Resistance/Diabetes Risk 45 <=45 [facility] Comment on above: INSULIN RESISTANCE Oleksandr NG <--Insulin Sensitive Insulin Resistant--> Percentile in Reference PopulationInsulin Resistance ScoreLP-IR Score Low 25th 50th 75th High <27 27 45 63 >63LP-IR Score is inaccurate if patient is non-fasting.The LP-IR score is a laboratory developed index that hasbeen associated with insulin resistance and diabetes riskand should be used as one component of a physician'sclinical assessment.Performed at: - [address] [id number] Director: Tasha Chandra MD, Phone: [phone] LDL Cholesterol Particle Number [id number] nmol/L <1000 [facility] Comment on above: Low < 1000 Moderate 1000 - 1299 Borderline-High 1300 - 1599 High 1600 - 2000 Very High > 2000 LDL Cholesterol Particle Size 21.2 nm >20.5 [facility] Comment on above: INTERPRETATIVE INFORMATION PARTICLE CONCENTRATION AND SIZE <--Lower CVD Risk Higher CVD Risk--> LDL AND HDL PARTICLES Percentile in Reference Population HDL-P (total) High 75th 50th 25th Low >34.9 34.9 30.5 26.7 <26.7 Small LDL-P Low 25th 50th 75th High <117 117 527 839 >839 LDL Size <-Large (Pattern A)-> <-Small (Pattern B)-> 23.0 20.6 20.5 19.0 Small LDL-P and LDL Size are associated with CVD risk, butnot after LDL-P is taken into account. LDL Cholesterol, Calculated 185 mg/dL 0-99 [facility] Comment on above: Optimal < 100 Above optimal 100 - 129 Borderline 130 - 159 High 160 - 189 Very high > 189 Small LDL Particle Number [id number] nmol/L <=527 [facility] Thyroid Stimulating Hormone (TSH) 2.31 uIU/mL 0.358-3.74 [facility] Urine Microalbumin/Creatini ne Ratio 7.0 mg/g CRE <30 [facility] Urine Transitional Epithelial Cells 0-5 SEEN /hpf 0-5 [facility] Platelets bldOrdered By: Chely Guillen on 06-14-2023 Platelets (Bld) [#/Vol] 321 10*3/uL 150-450 [facility] Protein Test strip Ql (U)Ord ered By: Miesha Guillen on 06-14-2023 Protein Ql (U) 15 mg/dl Negative [facility] Serum or plasma albumin shruthi urement (mass/volume)Ordered By: Miesha Guillen on 06-14-2023 Albumin [Mass/Vol] 3.9 g/dL 3.2-5.0 [facility] Serum or plasma albumin/glob ulin mass ratioOrdered By: Miesha Guillen on 06-14-2023 Albumin/Globulin [Mass ratio] 1.0 {ratio} 0.9-2.4 [facility] Serum or plasma calcium shruthi urement (mass/volume)Ordered By: Miesha Guillen on 06-14-2023 Calcium [Mass/Vol] 9.0 mg/dL 8.5-10.1 [facility] Serum or plasma cholesterol in HDL measurement (mass/volume)Ordered By: Miesha Guillen on 06-14-2023 Cholesterol in HDL [Mass/Vol] 60 mg/dL >39 [facility] Serum or plasma cholesterol in VLDL measurement (mass/volume)Ordered By: Miesha Guillen on 06-14-2023 Cholesterol in VLDL [Mass/Vol] 23 mg/dL 5-40 [facility] Serum or plasma cholesterol measurement (mass/volume)Ordered By: Miesha Guillen on 06-14-2023 Cholesterol [Mass/Vol] 264 mg/dL 100-199 [facility] Serum or plasma creatinine m easurement (mass/volume)Ordered By: Miesha Guillen on 06-14-2023 Creatinine [Mass/Vol] 0.77 mg/dL 0.55-1.02 [facility] Comment on above: The validity of the calculated GFR & GFRAA in patients over 70 years has not been determined. Clinical correlation is essential. Serum or plasma low density lipoprotein (LDL) cholesterol measurement (mass/volume)Ordered By: Miesha Guillen on 06-14-2023 Cholesterol in LDL [Mass/Vol] 163 mg/dL 0-130 [facility] Serum or plasma urea nitroge n measurement (mass/volume)Ordered By: Miesha Guillen on 06-14-2023 Urea nitrogen [Mass/Vol] 13 mg/dL 7-18 [facility] Squamous epithelial cells de tection in urine sediment by light microscopyOrdered By: Miesha Guillen on 06-14-2023 Epithelial cells.squamous LM Ql (Urine sed) 0-5 SEEN /hpf 5-10 [facility] Thin prep Papanicolaou smear with manual screeningOrdered By: Miesha Guillen on 06-14-2023 Thin prep Papanicolaou smear with manual screening 13 U/L 15-37 [facility] Thin prep Papanicolaou smear with manual screening 7 5-15 [facility] Thin prep Papanicolaou smear with manual screening 11.5 mg/L NO RANGE EST. [facility] Thin prep Papanicolaou smear with manual screening 37.6 umol/L >=30.5 [facility] Urine blood detectionOrdered By: Miesha Guillen on 06-14-2023 RBC Ql (U) 10 /ul Negative [facility] RBC Ql (U) 0 SEEN /hpf 0-5 [facility] Urine clarityOrdered By: Chely Guillen on 06-14-2023 Clarity (U) Clear Clear [facility] Urine color determinationOrd ered By: Miesha Guillen on 06-14-2023 Color (U) Yellow Yellow [facility] Urine creatinine measurement (mass/volume)Ordered By: Miesha Guillen on 06-14-2023 Creatinine (U) [Mass/Vol] 165.00 mg/dL NO RANGE EST. [facility] Urine glucose detectionOrder ed By: Miesha Guillen on 06-14-2023 Glucose Ql (U) Normal mg/dl Normal [facility] Urine leukocyte esterase det ection by dipstickOrdered By: Miesha Guillen on 06-14-2023 Leukocyte esterase Test strip Ql (U) 100 /ul Negative [facility] Urine pHOrdered By: Miesha Guillen on 06-14-2023 pH (U) 6.0 [pH] 5.0 - 8.0 [facility] Urine sediment bacteria coun t by microscopy (number/high power field)Ordered By: Miesha Guillen on 06-14-2023 Bacteria LM.HPF (Urine sed) [#/Area] 1 /[HPF] None Seen [facility] Urine specific gravity measu rementOrdered By: iMesha Guillen on 06-14-2023 Specific gravity (U) [Rel density] 1.015 1.002-1.[address] [facility] Urobilinogen Auto test strip Ql (U)Ordered By: Miesha Guillen on 06-14-2023 Urobilinogen Ql (U) Normal mg/dl Normal [facility] SURGICAL PATHOLOGYOrdered By : Brody Candelario on 04-17-2023 Case Report Surgical Pathology R eport Case: [id number] Authorizing Provider: Alison Arnett MD Collected: 04/16/2023 11:09 AM Ordering Location: Mammography Received: 04/16/2023 12:16 PM Pathologist: Brody Candelario MD Specimen: BREAST CORE BIOPSY RIGHT, Cluster of coarse heterogeneous calcifications Right Breast, upper inner aspect middle depth, STOP LIGHT CLIP [facility] Work Phone: FINAL DIAGNOSIS i3npnSLxXQJjeJCuVTPn M1xhb tDdQUVtiBSmC3UosxlhTWrsQQ 1hSM6vmNrtuITjwDYkUJEnEtI pg4kxb453hKOjz5uuKJUQevqw hIa4nLfyL62uv0B4GryvW73dh BZzUWF6CXVjWMOcrIZlDSOuNC B1RCNefHFnI2ewMHElRO7qvvh dQQxoVQlqSIObrOL6KIQvaBXt C6NvSUDlXKixCJEjkwd7PrRaQ u3iwFVawGdoOXzgBDObAFHiOH luXGZzMjAgUmlnaHQgYnJlYXN 6PHW8jGSpqyRgwp0ocamru8Sm cmVvdGFjdGljIGNvcmUgYmlvc LW9ZDenhOpgu0PpdOjtT3s7KM SxjTEaULLJNV5sM14iEgYpIIK 7TCQkb6W5RYW7lBNeIWK2nh7y IJhgJvjutn0bsMTaYEndl4Mvu 5jmEDHaFIEgvWWky2ByaRQrGo jmZDBgs25dLsCknYAheJ== [facility] Work Phone: Gross Description y7fvaNXeYDBxcRQPSSK8 MDJcY O8osWionIw8xLjpERQcpgQ3sU MkCWphu0inFPG4i5smxaYLIap aPNPaCV4pOVwxLNLeEP7zBeLz XGRlZmYxXHBhcGVydzEyMjQwX BAqnIPjePU3YYHlXA4vtiguLJ udGEojGVWopsN4HMFpgLTmZ6E vVEEbJM7rnjslNCU5VIJGRxra Dv2phXZbgCicGxSsTxNjDKPhT YBuGRFbhGkyIEXiWNi6oD1VHa hiJER8GRXVWjzvIwwanNsjb6J jdCBcXHNnIFxcaWQgNTEwMDAg RRsmXqTLEkXrDiU7AUz4IHU6R qTyHXy8VSpcTbCHKWa2TbG4PA XfTTx1SCjpHIqqoMZlOMXzUEN mFYJjLHejcmL2p6zyQHThfBCu PJG4BRdpl2zyGXrnBHA0WLBxW gLtYZDzKO7VSjNjVXKyIAYoZs egNkK9HPo7KSKUPwMzWvGvXng 6ToQ7ENRqUOw6HDz7FFoBHlIr DHJ8RfC6FJNtMyF5VQj3DlSyK HQgMiBcXHNzIDMgXFxmbCBcXG 9mwDjwNTIcFH6TZLRsCYpwYQY hOhKkCL4bJcXJOERKUNDPHuTr LtrKNQEUYRWHW7nCATw1qcPoG CInkzDUSlerMTKxIJ4MOJOtHD jmCVx5kjJgZXJtBoOsIMAeM02 mb8BJj4XbYA5LVWt6gbVgbvcu zF6vHDGzpiPmQVjbUuVbDSGEM PGlsHFbTJNhvfFnr8VoJAjfzy BsYWJlbGVkIGFzIGBgcmlnaHQ ySaVpKLE2JHqTSPfwEtGiVOEw FY98tMAjmSopKICaK94ipoQwO O6jXKU2jCmmSZThS5MqDPPxk8 K0FYMvX3bxVQonaVvkZtV2avX uCrGugHSzLkforYZiCxOuA67w LUfwtZxrmlOrzgMgr2QmHOUmc 5N9KMCeitOsh8LlytS8WkWEtJ Sya9ToO6mjNU8xe2IdPSIfeO9 9AICxVrRhlSN8gUQsaFZ8kFLb rTJyqQLfVXirGPDRFXPgmuX1Z oD8PjVcJqUmBG2zWQXbNIKeMM 1lIGRheSwgdGhlIHNwZWNpbWV nNSnmezOoqKNqZEGhfO7sUx3w fIQbjL0yRZKyMRK0QLfnWA2uD PAoaVAruAofl8NjyJo8nVEaAS erWNTeub0iuLprURlfKA7cKPL zIQUoULN1ZX4kLJBfdzJJSuvu ZSRjXHpWvb2lexPlpZPmoG6hf XmfhfIkLJEpl5UqUMXxPKKbH0 ydpkFcCM9tRBJxtA5cNkxhICL eGGGWwWDbeBQaTIBlAizwB5qg vgHlIW1dKZNTWZQ0PMF0WYkiO SIxVDldrZTaKF8CSHLkXeWnSP VxV3yfJUKaEB7BBVJCQTR4JkA 7JlZiKvFtZev9PMISTTHUXarl vHuoItIofMHsBbC4EOVwgBPqK CX7KF9deZxbJZJpI1NeQ5Lqqi T9THIkplEFTbigUROaFH3IFPT zMjIgDQp9 [facility] Work Phone: Performing Lab d4ztrTXvNILauKBwJzCn MDAwX JTga4flCADlrLJxTtMfAsCeNj WjNknnlSQjHNTsDuOsf0ubf38 4kOTuc5rmKVFhChS4gMLsQOVi sEPuC324RMIpYYkek3axo0ImB NFwxIDka9O9JQERufjibUl0nU qzN69zy4U1IizfN8daAOXyGSL sF7AgCE2eEENqInx2XKX1HCQ4 OXZjJTTpM0JrJW9qSWPifWMyV Tu7e6vxpOskMDAuFNQ3g4maOO juewLaFD3vwp4llKm4p7xnmbC qFHIpNWPlrMOWFQLvM7UqoRap Er7ddGx9nFzbEqtxBVC5Kxk6R O2nbk35kck7eHalYMKnzfwmPn F8SMgpHASymqcnLFb5MQbfDEZ baMT0OWTgcPTqW1UxALuqCA8u opa8JZM8KWbgDMBjDpW8AUGlq ABdHAHpyPjzKDayb027ZMI2Mx PlEB8cA5Gne7Y5wC0lhSFxATC seSPaXwSuMBTvph9unNBkBMax a3FwGDJ6ovH6kRBtoSAhURObF D92Bfnfy5DsHpxgq0ClA72akA A0EFpkt9foDW7hTcJ6qnGsCMq zu4hdlH6dJkY2VWcqEG9fIN9r PGXjwF1glxqgRYRnCwCynbylJ BBpvZxrwlKlWy5utZshEQO3ZN fmM8mdgK5yUwD5NIcdC1phpX2 aDFd1FSchiOU4KPMduK8eBG2u awcez9moQVhiNCdtXCSoupL5p vVzTXSpkJIrG4YlkH9jLALhKE 5lifufn6dvPEH5UGniFWSiICE 9TtPpWNGti5Zqliu7WhIvs0Fw sFPfAPutS47om388IHBbznIjX 1xwbGFpblxwbGFpblxmMFxmcz B6XPGyDKLvCQdvVGMpFKGgGqM cbGFuZzEwMzNcaGljaFxmMVxk CnOpLGPbIWsyG2gfGdPhJxBjY xABdIYubt0qcVglZVndaYAueS PqyKM2bU0fMKStgfSzrr6yQRO giPEYzSR2LQbikxXsX9muqctm XMU7YZTzGZW0O1yjZOZXyjDpI DImFWTuaUSdOHNGDLZ8EFF1PV BeWSNBXTTrOGX0NPD6ZIRlFCW ccGFyXHBhclxwYXJkXHBsYWlu MFLxQPUaMoXxnFqktB0gHoMiD uCyObnlEF0bRNNiI7bclAOxNI TbUTFaY5chTrIqrP5bvAzrZPe jZjJcZnMyMlxsdHJjaCBMYWJv euK4p1H6AEafqKUzkfkdYZgqe bIfDZlfvsiqZUCgNRfaW0wrIp NlIKBfwBlcFFgrf1RdGPLjHTZ hUdDfZFdcHRD5y7A5FUwcaQSj lwBLZwZCPI8crEAaiytbEL8ID lxwYXJ9 [facility] Work Phone: [facility] Work Phone: GABINO STEREO BX BREAST RTon GABINO STEREO BX BREAST RT * * *Final Report* * * * * * SEE BOTTOM OF REPORT FOR ADDENDED TEXT * * * DATE OF EXAM: Apr 16 2023 11:33AM [facility] 0631 - GABINO STEREO BX BREAST RT / PROCEDURE REASON: Abnormal finding on breast imaging * * * * Physician Interpretation * * * * RESULT: FINAL REPORT #[id number] - GABINO STEREO BX BREAST RT STEREOTACTIC GUIDED BIOPSY RIGHT BREAST USING VACUUM DEVICE WITH MARKING DEVICE INSERTED AND POST MAMMOGRAPHIC IMAGIN04/16/2023 HISTORY: The patient presents for right stereotactic vacuum assisted needle biopsy as recommended from recent imaging study dated 03/30/2023. Pre and post fire hard copy mammographic images were obtained. PATIENT CONSENT: A time out was performed immediately prior to procedure start with the radiology team, correctly identifying the patient name, date of , procedure, anatomy (including marking of site and side), patient position, relevant diagnostic and radiology test results, safety precautions, and procedure-specific equipment needs. The procedure was explained to the patient including the risks, benefits and alternatives. Medications and allergies were also reviewed. The risks, including but not limited to infection and bleeding, were reviewed by the performing physician and the patient agreed to undergo the procedure. The radiologist and technologist were present throughout the entire procedure. Time out: 1102 Procedure start: 1104 Procedure end: 1117. Correlation is made to exams dated: 03/30/2023 ultrasound and 03/30/2023 mammogram - [facility]. A stereotactic guided biopsy was performed for the concerning area of grouped calcifications located in the right breast upper inner aspect middle depth. This was described on the previous mammography report. The skin was prepped in the usual manner. Local anesthetic was administered to the access site. The abnormality was approached from the craniocaudal aspect using a prone table. A 12 gauge biopsy needle was placed adjacent to the abnormality under computer guidance and confirmatory stereotactic mammography images were obtained to document needle placement. Once the needle was documented to be in the correct location, twelve specimens were obtained using the Me[employer] system. The patient received additional local anesthetic during the procedure. A stop light clip was inserted into the biopsy cavity. A skin closure strip and a sterile dressing were applied to the access site. Post procedure mammographic imaging demonstrates the location device at the targeted area. The specimens were sent to the laboratory for pathological analysis. IMPRESSION: STEREOTACTIC GUIDED BIOPSY BENIGN Stereotactic guided biopsy of the area of grouped calcifications in the right breast upper inner aspect middle depth with placement of a clip was successful with no apparent post procedure complications. Pathology indicates benign finding. Pathology results are concordant with imaging findings. A follow-up right mammogram in 6 months is recommended to demonstrate stability. SUMMARY: Pathology results are as follows: A. Right breast, upper inner, stereotactic core biopsy with stoplight clip - Benign breast tissue with stromal fibrosis/elastosis and microcalcifications. Please note diagnostic exam from 03/30/2023 also described an additional group of calcifications in the right breast which 6 months follow-up was recommended. The breast center nurse navigators will contact the patient regarding findings and recommendations. Shonda Norton M.D., cp/morelia:04/17/2023 11:34:55 Attending Technologist(s): Jael Villarreal RT(R)(M), [facility] [place] Buyer(s): RT Ruel(R)(M), [facility] Multiple national specialty organizations have released breast cancer screening guidelines for women at average risk for developing breast cancer - guidelines that are based on both evidence and opinion, yet differ on when to start and how often to screen for breast cancer. With representation from Breast Imaging, Internal Medicine, Women's Health, Family Medicine, and Medical/Surgical Oncology, the [facility] has carefully reviewed the data and reached the following consensus: 1) All women should engage in shared decision-making with their providers to decide when to start and how often to screen; 2) All women should have the opportunity to start screening mammography at age 40; 3) For women ages 45-55, we recommend annual screening mammograms; 4) For women ages 55 and over, we support both the transition from an annual to a biennial interval if this aligns more with patient's values and preferences, or continuation with annual screening; 5) All women should discuss with their providers when to stop screening mammograms. Special Services Director: [place] Transcribe Date/Time: Apr 16 2023 11:07A Dictated by: SHONDA NORTON MD T (more content not included)... Normal [facility] Guidance for biops y of Breast - righton 04-16-2023 Addendum by Provider , [facility] [place] on 04/17/2023 11:35 AM EDT * * *Final Report* * * * * * SEE BOTTOM OF REPORT FOR ADDENDED TEXT * * * DATE OF EXAM: Apr 16 2023 11:33AM [facility] 0631 - GABINO STEREO BX BREAST RT / PROCEDURE REASON: Abnormal finding on breast imaging * * * * Physician Interpretation * * * * RESULT: FINAL REPORT #[id number] - GABINO STEREO BX BREAST RT STEREOTACTIC GUIDED BIOPSY RIGHT BREAST USING VACUUM DEVICE WITH MARKING DEVICE INSERTED AND POST MAMMOGRAPHIC IMAGIN04/16/2023 HISTORY: The patient presents for right stereotactic vacuum assisted needle biopsy as recommended from recent imaging study dated 03/30/2023. Pre and post fire hard copy mammographic images were obtained. PATIENT CONSENT: A time out was performed immediately prior to procedure start with the radiology team, correctly identifying the patient name, date of , procedure, anatomy (including marking of site and side), patient position, relevant diagnostic and radiology test results, safety precautions, and procedure-specific equipment needs. The procedure was explained to the patient including the risks, benefits and alternatives. Medications and allergies were also reviewed. The risks, including but not limited to infection and bleeding, were reviewed by the performing physician and the patient agreed to undergo the procedure. The radiologist and technologist were present throughout the entire procedure. Time out: 1102 Procedure start: 1104 Procedure end: 1117. Correlation is made to exams dated: 03/30/2023 ultrasound and 03/30/2023 mammogram - [facility]. A stereotactic guided biopsy was performed for the concerning area of grouped calcifications located in the right breast upper inner aspect middle depth. This was described on the previous mammography report. The skin was prepped in the usual manner. Local anesthetic was administered to the access site. The abnormality was approached from the craniocaudal aspect using a prone table. A 12 gauge biopsy needle was placed adjacent to the abnormality under computer guidance and confirmatory stereotactic mammography images were obtained to document needle placement. Once the needle was documented to be in the correct location, twelve specimens were obtained using the Measy system. The patient received additional local anesthetic during the procedure. A stop light clip was inserted into the biopsy cavity. A skin closure strip and a sterile dressing were applied to the access site. Post procedure mammographic imaging demonstrates the location device at the targeted area. The specimens were sent to the laboratory for pathological analysis. IMPRESSION: STEREOTACTIC GUIDED BIOPSY BENIGN Stereotactic guided biopsy of the area of grouped calcifications in the right breast upper inner aspect middle depth with placement of a clip was successful with no apparent post procedure complications. Pathology indicates benign finding. Pathology results are concordant with imaging findings. A follow-up right mammogram in 6 months is recommended to demonstrate stability. SUMMARY: Pathology results are as follows: A. Right breast, upper inner, stereotactic core biopsy with stoplight clip - Benign breast tissue with stromal fibrosis/elastosis and microcalcifications. Please note diagnostic exam from 03/30/2023 also described an additional group of calcifications in the right breast which 6 months follow-up was recommended. The breast center nurse navigators will contact the patient regarding findings and recommendations. Shonda Norton M.D., cp/morelia:04/17/2023 11:34:55 Attending Technologist(s): Jael Villarreal, RT(R)(M), [facility] Buyer(s): Kimberlee Dumont, RT(R)(M), [facility] Multiple national specialty organizations have released breast cancer screening guidelines for women at average risk for developing breast cancer - guidelines that are based on both evidence and opinion, yet differ on when to start and how often to screen for breast cancer. With representation from Breast Imaging, Internal Medicine, Women's Health, Family Medicine, and Medical/Surgical Oncology, the [facility] has carefully reviewed the data and reached the following consensus: 1) All women should engage in shared decision-making with their providers to decide when to start and how often to screen; 2) All women should have the opportunity to start screening mammography at age 40; 3) For women ages 45-55, we recommend annual screening mammograms; 4) For women ages 55 and over, we support both the transition from an annual to a biennial interval if this aligns more with patient's values and preferences, or continuation with annual screening; 5) All women should discuss with their (more content not included)... [facility] Radiology Study observation (narrative) [facility]ox Guidance for biops y of Breast - rightOrdered By: [facility] Provider on 04-16-2023 [facility] SURGICAL PATHOLOGYon 023 CASE REPORT Normal [facility] Comment on above: Order Comment: Speci men Type: TISSUE SPECIMEN Ordering Facility: [facility] Address: [address] [place] [address] [place] [address] Result Comment: Surg ica Pathology Report Case: [id number] Authorizing Provider: Alison Arnett MD Collected: 04/16/2023 11:09 AM Ordering Location: Mammography Received: 04/16/2023 12:16 PM Pathologist: Brody Candelario MD Specimen: BREAST CORE BIOPSY RIGHT, Cluster of coarse heterogeneous calcifications Right Breast, upper inner aspect middle depth, STOP LIGHT CLIP Performed By: #### S #### [facility] CLIA [id number] [address] [place] [address] FINAL DIAGNOSIS Normal [facility] Comment on above: Order Comment: Speci men Type: TISSUE SPECIMEN Ordering Facility: [facility] Address: [address] [place] [address] Result Comment: Righ t breast, upper inner, stereotactic core biopsy with stoplight clip - Benign breast tissue with stromal fibrosis/elastosis and microcalcifications. Performed By: #### S #### [facility] CLIA [id number] [address] [place] [address] FINAL PERFORMING LAB Normal [facility] Comment on above: Order Comment: Speci men Type: TISSUE SPECIMEN Ordering Facility: [facility] Address: [address] [place] [address] Result Comment: Diag nostic interpretation performed at [facility], [address] [place] [address] CLIA# [id number] Chief Cruiser: Shiv Kelley M.D. Performed By: #### S #### [facility] CLIA [id number] [address] [place] [address] GROSS DESCRIPTION Normal [facility] Comment on above: Order Comment: Speci men Type: TISSUE SPECIMEN Ordering Facility: [facility] Address: [address] [place] [address] Result Comment: A. B REAST CORE BIOPSY RIGHT Received in formalin labeled as ``right breast? are multiple segments of cylindrical tissue aggregating to 2.4 x 0.9 x 0.3 cm, yellow and of a soft consistency. The specimen was removed from the patient at 11:09 AM on 04/16/2023. On the same day, the specimen was placed in formalin at 11:19 AM. Totally submitted in formalin in one cassette. Gross examination performed at [facility], [address] [place], [place] [id number] [facility] 04/16/2023 6:49 PM Performed By: #### S #### [facility] CLIA [id number] [address] [place] [address] [id number] CNOVon 03-30-2023 CNOV Office Visit (GENSF) ----- BRYANNA RAMIREZ ([id number]) 1965 F Date Time Provider Department 03/30/23 2:45 PM GIANNA JENSEN GENSF During your visit today, we recorded the following information about you: Gianna Jensen DO 04/04/2023 10:57 AM Signed REASON FOR TODAY'S VISIT: Established patient HISTORY of PRESENT ILLNESS: Bryanna Ramirez is a 57 year old white female who initially presented 05/2022 with LEFT breast calcifications superior lateral anterior depth (barbell clip) bx showed papilloma. There are approximately 3 residual calcifications in this area. Given the lack of atypia, patient elected to continue close surveillance of lesion with 6 month mammogram. History of prior benign papilloma excised in 2005 at that time for symptomatic nipple discharge. HISTORY: Patient presented for bilateral diagnostic mammogram on 03/30 for close surveillance of LEFT breast papilloma. Diagnostic mammogram demonstrated stability in the region of prior LEFT breast biopsy however was significant for new architectural distortion with associated calcifications of the RIGHT breast and stereotactic biopsy of the RIGHT breast was advised. She presents to [facility] her C[facility]. ROS: HEENT: Denies vision changes or headaches BREAST: Denies palpating any new breast masses, no breast pain, no skin changes, no nipple discharge ABD: Denies any abdominal pain or new changes in bowel habits MUSCULOSKELETAL: Denies any bone, joint or muscle pain IMAGING: BILATERAL DIGITAL DIAGNOSTIC MAMMOGRAM TOMOSYNTHESIS WITH CAD: 03/30/2023 HISTORY: Multiple Diagnoses / Short term follow up left breast-Abnormal Mammogram Also due for bilateral Multiple Diagnoses. RESULT: TECHNIQUE: The study was acquired using full field digital technology and interpreted from soft copy. Digital Breast Tomosynthesis (DBT) images were obtained and used to assist in the interpretation of this examination. Current study was also evaluated with a Computer Aided Detection (CAD). Comparison is made to exams dated: 04/05/2022 mammogram, 01/26/2022 mammogram - [facility], and 06/26/2014 mammogram - [facility]. The tissue of both breasts is heterogeneously dense. This may lower the sensitivity of mammography. There is an asymmetry in the right breast upper inner aspect middle depth. Finding is best noted on tomographic CC slice 41. This is seen in additional views. There also is a cluster of coarse heterogeneous calcifications in the right breast upper inner aspect middle depth. This is seen in additional views. There is a benign titanium marker clip in the left breast superior lateral quadrant anterior depth. This is seen in additional views. This titanium marker clip is at the biopsy site. No other significant masses or calcifications are seen in either breast. IMPRESSION: SUSPICIOUS OF MALIGNANCY The asymmetry in the right breast upper inner aspect middle depth is indeterminate. An ultrasound is recommended. This is best seen on CC view, image 41. The cluster of coarse heterogeneous calcifications in the right breast upper inner aspect middle depth is at a low suspicion for malignancy. A stereotactic biopsy is recommended. The benign titanium marker clip in the left breast superior lateral quadrant anterior depth is benign. 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 The patient elected short interval follow up rather than excision and is followed by Dr. Jensen. LIMITED ULTRASOUND OF RIGHT BREAST: 03/30/2023 RESULT: Comparison is made to exams dated: 04/05/2022 mammogram, 01/26/2022 mammogram - [facility], and 06/26/2014 mammogram - [facility]. Color flow and real-time ultrasound of the right breast were performed. Dutta scale images of the real-time examination were reviewed. Targeted scanning was performed of the upper central and upper inner breast. No focal or suspicious sonographic correlate was seen for the mammographic asymmetry, seen best on CC view. IMPRESSION: NEGATIVE There is no sonographic evidence of malignancy. There is no abnormality seen in the right breast to correspond with the mammography finding in the upper inner quadrant which likely represents fibrocystic change. No sonographic correlate was seen for the mammographic asymmetry, seen best on CC view. On review of prior mammograms, the asymmetry is likely present and obscured in 2013. Therefore six month mammographic follow up is recommended for this finding. Stereotactic biopsy is recommended for coarse heterogeneous calcifications in the central breast, middle depth. EXAMINATION: GEN alert and orientated, well nourished, calm Regional Lymph Nodes There is no concerning supraclavicular, infraclavicular or cervical lymphadenopathy. BREASTS: The patient was examined i (more content not included)... Normal [facility] DBT Breast - bilateral diagn ostic for implanton 03-30-2023 * * *Final Report* * * DATE OF EXAM: Mar 30 2023 2:43PM [facility] 0627 - [facility] ULLIG W JAY JAY MIGUEL / PROCEDURE REASON: multiple diagnoses * * * * Physician Interpretation * * * * RESULT: #[id number] - [facility] DIAG W JAY JAY MIGUEL #[id number] - [facility] BREAST LTD RT BILATERAL DIGITAL DIAGNOSTIC MAMMOGRAM TOMOSYNTHESIS WITH CAD: 03/30/2023 HISTORY: Multiple Diagnoses / Short term follow up left breast-Abnormal Mammogram Also due for bilateral Multiple Diagnoses. RESULT: TECHNIQUE: The study was acquired using full field digital technology and interpreted from soft copy. Digital Breast Tomosynthesis (DBT) images were obtained and used to assist in the interpretation of this examination. Current study was also evaluated with a Computer Aided Detection (CAD). Comparison is made to exams dated: 04/05/2022 mammogram, 01/26/2022 mammogram - [facility], and 06/26/2014 mammogram - [facility]. The tissue of both breasts is heterogeneously dense. This may lower the sensitivity of mammography. There is an asymmetry in the right breast upper inner aspect middle depth. Finding is best noted on tomographic CC slice 41. This is seen in additional views. There also is a cluster of coarse heterogeneous calcifications in the right breast upper inner aspect middle depth. This is seen in additional views. There is a benign titanium marker clip in the left breast superior lateral quadrant anterior depth. This is seen in additional views. This titanium marker clip is at the biopsy site. No other significant masses or calcifications are seen in either breast. [facility] Provider, Loren Valero rajwinder [place] - 03/30/2023 * * *Final Report* * * DATE OF EXAM: Mar 30 2023 2:43PM [facility] 0627 - GABINO DIAG W JAY JAY MIGUEL / PROCEDURE REASON: multiple diagnoses * * * * Physician Interpretation * * * * RESULT: #[id number] - [facility] DIAG W JAY JAY MIGUEL #[id number] - [facility] US BREAST LTD RT BILATERAL DIGITAL DIAGNOSTIC MAMMOGRAM TOMOSYNTHESIS WITH CAD: 03/30/2023 HISTORY: Multiple Diagnoses / Short term follow up left breast-Abnormal Mammogram Also due for bilateral Multiple Diagnoses. RESULT: TECHNIQUE: The study was acquired using full field digital technology and interpreted from soft copy. Digital Breast Tomosynthesis (DBT) images were obtained and used to assist in the interpretation of this examination. Current study was also evaluated with a Computer Aided Detection (CAD). Comparison is made to exams dated: 04/05/2022 mammogram, 01/26/2022 mammogram - [facility], and 06/26/2014 mammogram - [facility]. The tissue of both breasts is heterogeneously dense. This may lower the sensitivity of mammography. There is an asymmetry in the right breast upper inner aspect middle depth. Finding is best noted on tomographic CC slice 41. This is seen in additional views. There also is a cluster of coarse heterogeneous calcifications in the right breast upper inner aspect middle depth. This is seen in additional views. There is a benign titanium marker clip in the left breast superior lateral quadrant anterior depth. This is seen in additional views. This titanium marker clip is at the biopsy site. No other significant masses or calcifications are seen in either breast. IMPRESSION IMPRESSION: SUSPICIOUS OF MALIGNANCY The asymmetry in the right breast upper inner aspect middle depth is indeterminate. An ultrasound is recommended. This is best seen on CC view, image 41. The cluster of coarse heterogeneous calcifications in the right breast upper inner aspect middle depth is at a low suspicion for malignancy. A stereotactic biopsy is recommended. The benign titanium marker clip in the left breast superior lateral quadrant anterior depth is benign. 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 The patient elected short interval follow up rather than excision and is followed by Dr. Jensen. LIMITED ULTRASOUND OF RIGHT BREAST: 03/30/2023 RESULT: Comparison is made to exams dated: 04/05/2022 mammogram, 01/26/2022 mammogram - [facility], and 06/26/2014 mammogram - [facility]. Color flow and real-time ultrasound of the right breast were performed. Dutta scale images of the real-time examination were reviewed. Targeted scanning was performed of the upper central and upper inner breast. No focal or suspicious sonographic correlate was seen for the mammographic asymmetry, seen best on CC view. IMPRESSION: NEGATIVE There is no sonographic evidence of malignancy. There is no abnormality seen in the right breast to correspond with the mammography finding in the upper inner quadrant which likely represents fibrocystic change. No sonographic correlate was seen for the mammographic asymmetry, seen best on CC view. On review of prior mammograms, the asymmetry is likely present and obscured in 2013. Therefore six month mammographic follow up is recommended for this finding. Stereotactic biopsy is recommended for coarse heterogeneous calcifications in the central breast, middle depth. SUMMARY: Findings were discussed with the patient at the time of examination. Electronically informed consent for the recommended biopsy was explained and signed by the patient. The patient made an appointment for the recommended biopsy before leaving the department. Alison Arnett M.D., jr/morelia:03/30/2023 16:10:15 Multiple national specialty organizations have released breast cancer screening guidelines for women at average risk for developing breast cancer - guidelines that are based on both evidence and opinion, yet differ on when to start and how often to screen for breast cancer. With representation from Breast Imaging, Internal Medicine, Women's Health, Family Medicine, and Medical/Surgical Oncology, the [facility] has carefully reviewed the data and reached the following consensus: 1) All women should engage in shared decision-making with their providers to decide when to start and how often to screen; 2) All women should have the opportunity to start screening mammography at age 40; 3) For women ages 45-55, we recommend annual screening mammograms; 4) For women ages 55 and over, we support both the transition from an annual to a biennial interval if this aligns more with patient's values and preferences, or continuation with annual screening; 5) All women should discuss with their providers when to sto (more content not included)... [facility] Radiology Study observation (narrative) [facility] GABINO MANTILLAon 2022 GABINO Bradshaw JAY JAY MIGUEL * * *Final Report* * * DATE OF EXAM: Mar 30 2023 2:43PM [facility] 0627 - GABINO Bradshaw JAY JAY MIGUEL / PROCEDURE REASON: multiple diagnoses * * * * Physician Interpretation * * * * RESULT: #[id number] - GABINO ROCKWELLG W JAY JAY MIGUEL #[id number] - [facility] US BREAST LTD RT BILATERAL DIGITAL DIAGNOSTIC MAMMOGRAM TOMOSYNTHESIS WITH CAD: 03/30/2023 HISTORY: Multiple Diagnoses / Short term follow up left breast-Abnormal Mammogram Also due for bilateral Multiple Diagnoses. RESULT: TECHNIQUE: The study was acquired using full field digital technology and interpreted from soft copy. Digital Breast Tomosynthesis (DBT) images were obtained and used to assist in the interpretation of this examination. Current study was also evaluated with a Computer Aided Detection (CAD). Comparison is made to exams dated: 04/05/2022 mammogram, 01/26/2022 mammogram - [facility], and 06/26/2014 mammogram - [facility]. The tissue of both breasts is heterogeneously dense. This may lower the sensitivity of mammography. There is an asymmetry in the right breast upper inner aspect middle depth. Finding is best noted on tomographic CC slice 41. This is seen in additional views. There also is a cluster of coarse heterogeneous calcifications in the right breast upper inner aspect middle depth. This is seen in additional views. There is a benign titanium marker clip in the left breast superior lateral quadrant anterior depth. This is seen in additional views. This titanium marker clip is at the biopsy site. No other significant masses or calcifications are seen in either breast. IMPRESSION: SUSPICIOUS OF MALIGNANCY The asymmetry in the right breast upper inner aspect middle depth is indeterminate. An ultrasound is recommended. This is best seen on CC view, image 41. The cluster of coarse heterogeneous calcifications in the right breast upper inner aspect middle depth is at a low suspicion for malignancy. A stereotactic biopsy is recommended. The benign titanium marker clip in the left breast superior lateral quadrant anterior depth is benign. 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 The patient elected short interval follow up rather than excision and is followed by Dr. Jensen. LIMITED ULTRASOUND OF RIGHT BREAST: 03/30/2023 RESULT: Comparison is made to exams dated: 04/05/2022 mammogram, 01/26/2022 mammogram - [facility], and 06/26/2014 mammogram - [facility]. Color flow and real-time ultrasound of the right breast were performed. Dutta scale images of the real-time examination were reviewed. Targeted scanning was performed of the upper central and upper inner breast. No focal or suspicious sonographic correlate was seen for the mammographic asymmetry, seen best on CC view. IMPRESSION: NEGATIVE There is no sonographic evidence of malignancy. There is no abnormality seen in the right breast to correspond with the mammography finding in the upper inner quadrant which likely represents fibrocystic change. No sonographic correlate was seen for the mammographic asymmetry, seen best on CC view. On review of prior mammograms, the asymmetry is likely present and obscured in 2013. Therefore six month mammographic follow up is recommended for this finding. Stereotactic biopsy is recommended for coarse heterogeneous calcifications in the central breast, middle depth. SUMMARY: Findings were discussed with the patient at the time of examination. Electronically informed consent for the recommended biopsy was explained and signed by the patient. The patient made an appointment for the recommended biopsy before leaving the department. Alison Arnett M.D., jr/morelia:03/30/2023 16:10:15 Multiple national specialty organizations have released breast cancer screening guidelines for women at average risk for developing breast cancer - guidelines that are based on both evidence and opinion, yet differ on when to start and how often to screen for breast cancer. With representation from Breast Imaging, Internal Medicine, Women's Health, Family Medicine, and Medical/Surgical Oncology, the [facility] has carefully reviewed the data and reached the following consensus: 1) All women should engage in shared decision-making with their providers to decide when to start and how often to screen; 2) All women should have the opportunity to start screening mammography at age 40; 3) For women ages 45-55, we recommend annual screening mammograms; 4) For women ages 55 and over, we support both the transition from an annual to a biennial interval if this aligns more with patient's values and preferences, or continuation with annual screening; 5) All women should discuss with their providers when to stop screening mammograms. [employer] Buyer(s): Myriam Guerrier, RT(R)(M), [facility]; Cheyenne Kee, [facility] (more content not included)... Normal [facility] US BREAST LTD RTon 03-30 [facility] US BREAST LTD RT * * *Final Report* * * DATE OF EXAM: Mar 30 2023 3:32PM [id number] - [facility] US BREAST LTD RT / PROCEDURE REASON: multiple diagnoses * * * * Physician Interpretation * * * * #[id number] - [facility] DIAG W JAY JAY MIGUEL #[id number] - [facility] BREAST LTD RT BILATERAL DIGITAL DIAGNOSTIC MAMMOGRAM TOMOSYNTHESIS WITH CAD: 03/30/2023 HISTORY: Multiple Diagnoses / Short term follow up left breast-Abnormal Mammogram Also due for bilateral Multiple Diagnoses. RESULT: TECHNIQUE: The study was acquired using full field digital technology and interpreted from soft copy. Digital Breast Tomosynthesis (DBT) images were obtained and used to assist in the interpretation of this examination. Current study was also evaluated with a Computer Aided Detection (CAD). Comparison is made to exams dated: 04/05/2022 mammogram, 01/26/2022 mammogram - [facility], and 06/26/2014 mammogram - [facility]. The tissue of both breasts is heterogeneously dense. This may lower the sensitivity of mammography. There is an asymmetry in the right breast upper inner aspect middle depth. Finding is best noted on tomographic CC slice 41. This is seen in additional views. There also is a cluster of coarse heterogeneous calcifications in the right breast upper inner aspect middle depth. This is seen in additional views. There is a benign titanium marker clip in the left breast superior lateral quadrant anterior depth. This is seen in additional views. This titanium marker clip is at the biopsy site. No other significant masses or calcifications are seen in either breast. IMPRESSION: SUSPICIOUS OF MALIGNANCY The asymmetry in the right breast upper inner aspect middle depth is indeterminate. An ultrasound is recommended. This is best seen on CC view, image 41. The cluster of coarse heterogeneous calcifications in the right breast upper inner aspect middle depth is at a low suspicion for malignancy. A stereotactic biopsy is recommended. The benign titanium marker clip in the left breast superior lateral quadrant anterior depth is benign. 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 The patient elected short interval follow up rather than excision and is followed by Dr. Jensen. LIMITED ULTRASOUND OF RIGHT BREAST: 03/30/2023 RESULT: Comparison is made to exams dated: 04/05/2022 mammogram, 01/26/2022 mammogram - [facility], and 06/26/2014 mammogram - [facility]. Color flow and real-time ultrasound of the right breast were performed. Dutta scale images of the real-time examination were reviewed. Targeted scanning was performed of the upper central and upper inner breast. No focal or suspicious sonographic correlate was seen for the mammographic asymmetry, seen best on CC view. IMPRESSION: NEGATIVE There is no sonographic evidence of malignancy. There is no abnormality seen in the right breast to correspond with the mammography finding in the upper inner quadrant which likely represents fibrocystic change. No sonographic correlate was seen for the mammographic asymmetry, seen best on CC view. On review of prior mammograms, the asymmetry is likely present and obscured in 2013. Therefore six month mammographic follow up is recommended for this finding. Stereotactic biopsy is recommended for coarse heterogeneous calcifications in the central breast, middle depth. SUMMARY: Findings were discussed with the patient at the time of examination. Electronically informed consent for the recommended biopsy was explained and signed by the patient. The patient made an appointment for the recommended biopsy before leaving the department. Alison Arnett M.D., jr/morelia:03/30/2023 16:10:15 Multiple national specialty organizations have released breast cancer screening guidelines for women at average risk for developing breast cancer - guidelines that are based on both evidence and opinion, yet differ on when to start and how often to screen for breast cancer. With representation from Breast Imaging, Internal Medicine, Women's Health, Family Medicine, and Medical/Surgical Oncology, the [facility] has carefully reviewed the data and reached the following consensus: 1) All women should engage in shared decision-making with their providers to decide when to start and how often to screen; 2) All women should have the opportunity to start screening mammography at age 40; 3) For women ages 45-55, we recommend annual screening mammograms; 4) For women ages 55 and over, we support both the transition from an annual to a biennial interval if this aligns more with patient's values and preferences, or continuation with annual screening; 5) All women should discuss with their providers when to stop screening mammograms. [employer] Buyer(s): RT Kelton(R)(M), [facility]; Cheyenne Kee, [facility] (more content not included)... Normal [facility] No Panel Informationon 03-30 IMPRESSION: SUSPICIO US OF MALIGNANCY The asymmetry in the right breast upper inner aspect middle depth is indeterminate. An ultrasound is recommended. This is best seen on CC view, image 41. The cluster of coarse heterogeneous calcifications in the right breast upper inner aspect middle depth is at a low suspicion for malignancy. A stereotactic biopsy is recommended. The benign titanium marker clip in the left breast superior lateral quadrant anterior depth is benign. 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 The patient elected short interval follow up rather than excision and is followed by Dr. Jensen. LIMITED ULTRASOUND OF RIGHT BREAST: 03/30/2023 RESULT: Comparison is made to exams dated: 04/05/2022 mammogram, 01/26/2022 mammogram - [facility], and 06/26/2014 mammogram - [facility]. Color flow and real-time ultrasound of the right breast were performed. Dutta scale images of the real-time examination were reviewed. Targeted scanning was performed of the upper central and upper inner breast. No focal or suspicious sonographic correlate was seen for the mammographic asymmetry, seen best on CC view. IMPRESSION: NEGATIVE There is no sonographic evidence of malignancy. There is no abnormality seen in the right breast to correspond with the mammography finding in the upper inner quadrant which likely represents fibrocystic change. No sonographic correlate was seen for the mammographic asymmetry, seen best on CC view. On review of prior mammograms, the asymmetry is likely present and obscured in 2013. Therefore six month mammographic follow up is recommended for this finding. Stereotactic biopsy is recommended for coarse heterogeneous calcifications in the central breast, middle depth. SUMMARY: Findings were discussed with the patient at the time of examination. Electronically informed consent for the recommended biopsy was explained and signed by the patient. The patient made an appointment for the recommended biopsy before leaving the department. Alison Arnett M.D., jr/morelia:03/30/2023 16:10:15 Multiple national specialty organizations have released breast cancer screening guidelines for women at average risk for developing breast cancer - guidelines that are based on both evidence and opinion, yet differ on when to start and how often to screen for breast cancer. With representation from Breast Imaging, Internal Medicine, Women's Health, Family Medicine, and Medical/Surgical Oncology, the [facility] has carefully reviewed the data and reached the following consensus: 1) All women should engage in shared decision-making with their providers to decide when to start and how often to screen; 2) All women should have the opportunity to start screening mammography at age 40; 3) For women ages 45-55, we recommend annual screening mammograms; 4) For women ages 55 and over, we support both the transition from an annual to a biennial interval if this aligns more with patient's values and preferences, or continuation with annual screening; 5) All women should discuss with their providers when to stop screening mammograms. [employer] Buyer(s): Myriam Guerrier, RT(R)(M), [facility]; Cheyenne Kee, [facility] OVERALL STUDY BIRADS: 4a Suspicious abnormality - low suspicion for malignancy Special Services Director: Morelia Transcribe Date/Time: Mar 30 2023 2:21P Dictated by: ALISON ARNETT MD This examination was interpreted and the report reviewed and electronically signed by: ALISON ARNETT MD on Mar 30 2023 4:10PM [facility] No Panel InformationOrdered By: Cc Provider on 03-30-2023 [facility] US Breast - right limitedon 03-30-2023 * * *Final Report* * * DATE OF EXAM: Mar 30 2023 3:32PM [id number] - [facility] [employer] BREAST LTD RT / PROCEDURE REASON: multiple diagnoses * * * * Physician Interpretation * * * * #[id number] - GABINO MAVIS W JAY JAY MIGUEL #[id number] - [facility] US BREAST LTD RT BILATERAL DIGITAL DIAGNOSTIC MAMMOGRAM TOMOSYNTHESIS WITH CAD: 03/30/2023 HISTORY: Multiple Diagnoses / Short term follow up left breast-Abnormal Mammogram Also due for bilateral Multiple Diagnoses. RESULT: TECHNIQUE: The study was acquired using full field digital technology and interpreted from soft copy. Digital Breast Tomosynthesis (DBT) images were obtained and used to assist in the interpretation of this examination. Current study was also evaluated with a Computer Aided Detection (CAD). Comparison is made to exams dated: 04/05/2022 mammogram, 01/26/2022 mammogram - [facility], and 06/26/2014 mammogram - [facility]. The tissue of both breasts is heterogeneously dense. This may lower the sensitivity of mammography. There is an asymmetry in the right breast upper inner aspect middle depth. Finding is best noted on tomographic CC slice 41. This is seen in additional views. There also is a cluster of coarse heterogeneous calcifications in the right breast upper inner aspect middle depth. This is seen in additional views. There is a benign titanium marker clip in the left breast superior lateral quadrant anterior depth. This is seen in additional views. This titanium marker clip is at the biopsy site. No other significant masses or calcifications are seen in either breast. [facility] Provider, [facility] - 03/30/2023 * * *Final Report* * * DATE OF EXAM: Mar 30 2023 3:32PM U [id number] - [facility] [employer] BREAST Evoz RT / PROCEDURE REASON: multiple diagnoses * * * * Physician Interpretation * * * * #[id number] - [facility] DIAG W JAY JAY MIGUEL #[id number] - [facility] [employer] BREAST [facility] RT BILATERAL DIGITAL DIAGNOSTIC MAMMOGRAM TOMOSYNTHESIS WITH CAD: 03/30/2023 HISTORY: Multiple Diagnoses / Short term follow up left breast-Abnormal Mammogram Also due for bilateral Multiple Diagnoses. RESULT: TECHNIQUE: The study was acquired using full field digital technology and interpreted from soft copy. Digital Breast Tomosynthesis (DBT) images were obtained and used to assist in the interpretation of this examination. Current study was also evaluated with a Computer Aided Detection (CAD). Comparison is made to exams dated: 04/05/2022 mammogram, 01/26/2022 mammogram - [facility], and 06/26/2014 mammogram - [facility]. The tissue of both breasts is heterogeneously dense. This may lower the sensitivity of mammography. There is an asymmetry in the right breast upper inner aspect middle depth. Finding is best noted on tomographic CC slice 41. This is seen in additional views. There also is a cluster of coarse heterogeneous calcifications in the right breast upper inner aspect middle depth. This is seen in additional views. There is a benign titanium marker clip in the left breast superior lateral quadrant anterior depth. This is seen in additional views. This titanium marker clip is at the biopsy site. No other significant masses or calcifications are seen in either breast. IMPRESSION IMPRESSION: SUSPICIOUS OF MALIGNANCY The asymmetry in the right breast upper inner aspect middle depth is indeterminate. An ultrasound is recommended. This is best seen on CC view, image 41. The cluster of coarse heterogeneous calcifications in the right breast upper inner aspect middle depth is at a low suspicion for malignancy. A stereotactic biopsy is recommended. The benign titanium marker clip in the left breast superior lateral quadrant anterior depth is benign. 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 The patient elected short interval follow up rather than excision and is followed by Dr. Jensen. LIMITED ULTRASOUND OF RIGHT BREAST: 03/30/2023 RESULT: Comparison is made to exams dated: 04/05/2022 mammogram, 01/26/2022 mammogram - [facility], and 06/26/2014 mammogram - [facility]. Color flow and real-time ultrasound of the right breast were performed. Dtuta scale images of the real-time examination were reviewed. Targeted scanning was performed of the upper central and upper inner breast. No focal or suspicious sonographic correlate was seen for the mammographic asymmetry, seen best on CC view. IMPRESSION: NEGATIVE There is no sonographic evidence of malignancy. There is no abnormality seen in the right breast to correspond with the mammography finding in the upper inner quadrant which likely represents fibrocystic change. No sonographic correlate was seen for the mammographic asymmetry, seen best on CC view. On review of prior mammograms, the asymmetry is likely present and obscured in 2013. Therefore six month mammographic follow up is recommended for this finding. Stereotactic biopsy is recommended for coarse heterogeneous calcifications in the central breast, middle depth. SUMMARY: Findings were discussed with the patient at the time of examination. Electronically informed consent for the recommended biopsy was explained and signed by the patient. The patient made an appointment for the recommended biopsy before leaving the department. Alison Arnett M.D., jr/morelia:03/30/2023 16:10:15 Multiple national specialty organizations have released breast cancer screening guidelines for women at average risk for developing breast cancer - guidelines that are based on both evidence and opinion, yet differ on when to start and how often to screen for breast cancer. With representation from Breast Imaging, Internal Medicine, Women's Health, Family Medicine, and Medical/Surgical Oncology, the [facility] has carefully reviewed the data and reached the following consensus: 1) All women should engage in shared decision-making with their providers to decide when to start and how often to screen; 2) All women should have the opportunity to start screening mammography at age 40; 3) For women ages 45-55, we recommend annual screening mammograms; 4) For women ages 55 and over, we support both the transition from an annual to a biennial interval if this aligns more with patient's values and preferences, or continuation with annual screening; 5) All women should discuss with their providers when to stop scree (more content not included)... [facility] Radiology Study observation (narrative) [facility] CBC W/AUTO DIFF WBC ([id number])O rdered By: Bread Wrapping Machine Feeder on 01-18-2023 Basophils (Bld) [#/Vol] 0.0 10*3/uL Normal 0.0-0.2 [facility]; [facility] Work Phone: Basophils/100 WBC (Bld) 1 % Normal [facility]; [facility] Work Phone: Eosinophils (Bld) [#/Vol] 0.1 10*3/uL Normal 0.0-0.4 [facility]; [facility] Work Phone: Eosinophils/100 WBC (Bld) 1 % Normal [facility]; [facility] Work Phone: Erythrocyte distribution width (RBC) [Ratio] 12.6 % Normal 11.7-15.4 [facility]; [facility] Work Phone: Hematocrit (Bld) [Volume fraction] 44.1 % Normal 34.0-46.6 [facility]; [facility] Work Phone: Hemoglobin (Bld) [Mass/Vol] 14.6 g/dL Normal 11.1-15.9 [facility]; [facility] Work Phone: Immature granulocytes (Bld) [#/Vol] 0.0 10*3/uL Normal 0.0-0.1 [facility]; [facility] Work Phone: Immature granulocytes/100 WBC (Bld) 0 % Normal [facility]; [facility] Work Phone: Lymphocytes (Bld) [#/Vol] 1.6 10*3/uL Normal 0.7-3.1 [facility]; [facility] Work Phone: Lymphocytes/100 WBC (Bld) 25 % Normal [facility]; [facility] Work Phone: MCH (RBC) [Entitic mass] 29.5 pg Normal 26.6-33.0 [facility]; [facility] Work Phone: MCHC (RBC) [Mass/Vol] 33.1 g/dL Normal 31.5-35.7 [facility] prehensive Internal Medicine; [facility] Work Phone: MCV (RBC) [Entitic vol] 89 fL Normal 79-97 [facility]; [facility] Work Phone: Monocytes (Bld) [#/Vol] 0.5 10*3/uL Normal 0.1-0.9 [facility]; [facility] Work Phone: Monocytes/100 WBC (Bld) 7 % Normal [facility]; [facility] Work Phone: Neutrophils (Bld) [#/Vol] 4.2 10*3/uL Normal 1.4-7.0 [facility]; [facility] Work Phone: Neutrophils/100 WBC (Bld) 66 % Normal [facility]; [facility] Work Phone: Platelets (Bld) [#/Vol] 311 10*3/uL Normal 150-450 [facility]; [facility] Work Phone: RBC (Bld) [#/Vol] 4.95 10*6/uL Normal 3.77-5.28 [facility] ehensive Internal Medicine; [facility] Work Phone: WBC (Bld) [#/Vol] 6.4 10*3/uL Normal 3.4-10.8 Compre hensive [facility]; [facility] Work Phone: LIPID PANEL ([id number])Ordered B y: Bread Wrapping Machine Feeder on 01-18-2023 Cholesterol [Mass/Vol] 258 mg/dL Abnormal 100-199 [facility]; [facility] Work Phone: Cholesterol in HDL [Mass/Vol] 61 mg/dL Normal [facility]; [facility] Work Phone: Triglyceride [Mass/Vol] 95 mg/dL Normal 0-149 [facility]; [facility] Work Phone: LIPID PANEL ([id number]) 16 mg/dL Normal 5-40 [facility]; [facility] Work Phone: LIPID PANEL ([id number]) 181 mg/dL Abnormal 0-99 [facility]; [facility] Work Phone: LIPID PANEL ([id number]) 3.0 {ratio} Normal 0.0-3.2 [facility]; [facility] Work Phone: METABOLIC PANEL, COMPREHENSI VE ([id number])Ordered By: Bread Wrapping Machine Feeder on 01-18-2023 Albumin [Mass/Vol] 4.5 g/dL Normal 3.8-4.9 [facility] Internal [facility]; [facility] Work Phone: Albumin/Globulin [Mass ratio] 1.9 {ratio} Normal 1.2-2.2 [facility]; [facility] Work Phone: ALP [Catalytic activity/Vol] 89 U/L Normal 44-121 [facility]; [facility] Work Phone: ALT [Catalytic activity/Vol] 13 U/L Normal 0-32 [facility]; [facility] Work Phone: AST [Catalytic activity/Vol] 18 U/L Normal 0-40 [facility]; [facility] Work Phone: Bilirubin [Mass/Vol] 0.5 mg/dL Normal 0.0-1.2 [facility]; [facility] Work Phone: Calcium [Mass/Vol] 9.8 mg/dL Normal 8.7-10.2 [facility]; [facility] Work Phone: Chloride [Moles/Vol] 103 mmol/L Normal 96-106 [facility] rehensive Internal Medicine; [facility] Work Phone: CO2 [Moles/Vol] 23 mmol/L Normal 20-29 [facility]; [facility] Work Phone: Creatinine [Mass/Vol] 0.72 mg/dL Normal 0.57-1.00 [facility] prehensive Internal Medicine; [facility] Work Phone: Globulin (S) [Mass/Vol] 2.4 g/dL Normal 1.5-4.5 [facility]; [facility] Work Phone: Glucose [Mass/Vol] 85 mg/dL Normal 70-99 [facility]; [facility] Work Phone: Potassium [Moles/Vol] 4.5 mmol/L Normal 3.5-5.2 [facility]; [facility] Work Phone: Protein [Mass/Vol] 6.9 g/dL Normal 6.0-8.5 [facility]; [facility] Work Phone: Sodium [Moles/Vol] 141 mmol/L Normal 134-144 [facility]; [facility] Work Phone: Urea nitrogen [Mass/Vol] 10 mg/dL Normal 6-24 [facility]; [facility] Work Phone: Urea nitrogen/Creatinine [Mass ratio] 14 mg/mg Normal 9-23 [facility]; [facility] Work Phone: METABOLIC PANEL, COMPREHENSIVE ([id number]) 99 mL/min/1.73 Normal [facility] Internal [facility]; [facility] Work Phone: TSH ([id number])Ordered By: Tracy m [employer] Sales Consultant on 01-18-2023 TSH Qn 1.700 {uIU/mL} Normal 0.450-4.50 0 [facility]; [facility] Work Phone: MICROALBUMINOrdered By: Talisha em [employer] Sales Consultant on 01-11-2023 Albumin DL <= 20 mg/L (U) [Mass/Vol] mg/dL Normal [facility]; [facility] Work Phone: Albumin/Creatinine (U) [Mass ratio] <11 Normal 0-29 [facility]; [facility] Work Phone: Creatinine (U) [Mass/Vol] 27.6 mg/dL Normal [facility]; [facility] Work Phone: URINALYSIS, W/ MICRO ([id number]) Ordered By: Bread Wrapping Machine Feeder on 01-11-2023 Appearance (U) Clear Normal [facility]; [facility] Work Phone: Bilirubin Ql (U) Negative Normal Compre[facility] ns[facility]; [facility] Work Phone: Color (U) Yellow Normal [facility]; [facility] Work Phone: Glucose Ql (U) Negative Normal [facility]; [facility] Work Phone: Hemoglobin Ql (U) Negative Normal Compreh ensive [facility]; [facility] Work Phone: Ketones Ql (U) Negative Normal [facility]; [facility] Work Phone: Leukocyte esterase Test strip Ql (U) Trace Abnormal [facility]; [facility] Work Phone: Microscopic observation LM Nom (Urine sed) See below: Normal [facility]; [facility] Work Phone: Nitrite Ql (U) Negative Normal [facility]; [facility] Work Phone: pH (U) 6.5 [pH] Normal 5.0-7.5 [facility]; [facility] Work Phone: Protein Ql (U) Negative Normal [facility]prehens [facility]; [facility] Work Phone: Specific gravity (U) [Rel density] 1.009 1 Normal 1.005-1.03 0 [facility]; [facility] Work Phone: Urobilinogen (U) [Mass/Vol] 0.2 mg/dL Normal 0.2-1.0 [facility]; [facility] Work Phone: XR SHOULDER GENERAL 3V OR MO RE AP/TRUE AP/OTHER LEFTon 11-30-2022 [facility] CBC W Auto Differential pane l (Bld)on 11-08-2022 Basophils (Bld) [#/Vol] 0.03 10*3/uL <0.11 k/uL [facility] Basophils/100 WBC (Bld) 0.4 % [facility] Differential cell count method Nom (Bld) Auto [facility] Eosinophils (Bld) [#/Vol] 0.16 10*3/uL <0.46 k/uL [facility] Eosinophils/100 WBC (Bld) 2.1 % [facility] Erythrocyte distribution width (RBC) [Ratio] 13.1 % 11.5 - 15.0 % [facility] Hematocrit (Bld) [Volume fraction] 43.2 % 36.0 - 46.0 % [facility] Hemoglobin (Bld) [Mass/Vol] 14.0 g/dL 11.5 - 15.5 g/dL [facility] Immature granulocytes (Bld) [#/Vol] <0.10 k/uL [facility] Immature granulocytes/100 WBC (Bld) 0.3 % [facility] Lymphocytes (Bld) [#/Vol] 2.06 10*3/uL 1.00 - 4.00 k/uL [facility] Lymphocytes/100 WBC (Bld) 27.4 % [facility] MCH (RBC) [Entitic mass] 29.7 pg 26.0 - 34.0 pg [facility] MCHC (RBC) [Mass/Vol] 32.4 g/dL 30.5 - 36.0 g/dL [facility] MCV (RBC) [Entitic vol] 91.5 fL 80.0 - 100.0 fL [facility] Monocytes (Bld) [#/Vol] 0.52 10*3/uL <0.87 k/uL [facility] Monocytes/100 WBC (Bld) 6.9 % [facility] Neutrophils (Bld) [#/Vol] 4.74 10*3/uL 1.45 - 7.50 k/uL [facility] Neutrophils/100 WBC (Bld) 62.9 % [facility] Nucleated RBC (Bld) [#/Vol] <0.01 k/uL [facility] Nucleated RBC/100 WBC (Bld) [Ratio] 0.0 /100 WBC [facility] Platelet mean volume (Bld) [Entitic vol] 8.4 fL Low 9.0 - 12.7 fL [facility] Platelets (Bld) [#/Vol] 267 10*3/uL 150 - 400 k/uL [facility] RBC (Bld) [#/Vol] 4.72 10*6/uL 3.90 - 5.20 m/uL [facility] WBC (Bld) [#/Vol] 7.53 10*3/uL 3.70 - 11.00 k/uL [facility] BRAIN & CERVICAL SPINE [facility] DATA[facility] 08-30-2022 Brain Enhancing Lesions None [facility] Brain Interval Improvement None [facility] Brain New T2 Lesions None given differen anthony in technique Site [facility] Brain Other Significant MRI Findings None. [facility] Brain Parenchymal Volume Loss Mild [facility] Brain T2 [place] of Disease Mild [facility] MRI BRAIN WO/W IVCONon 08-30 [facility] GABINO DIAGNOSTIC LTon 04-05-20 22 [facility] BRAIN & CERVICAL SPINE MRI D ISCRETE DATAon 02-28-2022 Brain Enhancing Lesions None [facility] Brain Interval Improvement None [facility] Brain New T2 Lesions None Site [facility] Brain Other Significant MRI Findings None. [facility] Brain Parenchymal Volume Loss None [facility] Brain T2 [place] of Disease Mild [facility] MRI BRAIN WO/W IVCONon 02-28 [facility] HEPATIC FUNCTION PANEL (8007 [id number])Ordered By: Bread Wrapping Machine Feeder on 12-30-2021 Albumin [Mass/Vol] 4.7 g/dL Normal 3.8-4.9 [facility]; [facility] Work Phone: Comment on above: PATIENT WAS FASTINGP ERFORMED BY: CALLIE [employer] [id number] [facility] [id number] ALP [Catalytic activity/Vol] 78 U/L Normal 44-121 [facility]; [facility] Work Phone: Comment on above: PATIENT WAS FASTINGP ERFORMED BY: CALLIE [employer] [id number] [facility] [id number] ALT [Catalytic activity/Vol] 24 U/L Normal 0-32 [facility]; [facility] Work Phone: Comment on above: PATIENT WAS FASTINGP ERFORMED BY: CALLIE Odalis Galvan[address] RoadDublin [place] [id number] AST [Catalytic activity/Vol] 23 U/L Normal 0-40 [facility]; [facility] Work Phone: Comment on above: PATIENT WAS FASTINGP ERFORMED BY: CALLIE Maegan Vemgas64[address] RoadDublin [place] [id number] Bilirubin [Mass/Vol] 0.5 mg/dL Normal 0.0-1.2 [facility]; [facility] Work Phone: Comment on above: PATIENT WAS FASTINGP ERFORMED BY: CALLIE Maeganjuan pablo Dyyysd9085 [address]od[address] RoadDublin [place] [id number] Bilirubin.direct [Mass/Vol] 0.13 mg/dL Normal 0.00-0.40 [facility]; [facility] Work Phone: Comment on above: PATIENT WAS FASTINGP ERFORMED BY: CALLIE Celinajennifer Slwfpb13[address] RoadDublin [place] [id number] Protein [Mass/Vol] 6.8 g/dL Normal 6.0-8.5 [facility]; [facility] Work Phone: Comment on above: PATIENT WAS FASTINGP ERFORMED BY: CALLIE Maegan Qzundg[address] [facility]blin [place] [id number] LIPID PANEL (58816)Ordered B y: Bread Wrapping Machine Feeder on 12-30-2021 Cholesterol [Mass/Vol] 210 mg/dL Abnormal 100-199 [facility]; [facility] Work Phone: Comment on above: PATIENT WAS FASTINGP ERFORMED BY: CALLIE Labcojuan pablo ContrerasTbdeka94[address] RoadDublin [place] [id number]; fu 6-16 kf Cholesterol in HDL [Mass/Vol] 69 mg/dL Normal [facility]; [facility] Work Phone: Comment on above: PATIENT WAS FASTINGP ERFORMED BY: CB [facility] Usmoms[address] RoadDublin [place] [id number]; fu 6-16 kf Triglyceride [Mass/Vol] 86 mg/dL Normal 0-149 [facility]; [facility] Work Phone: Comment on above: PATIENT WAS FASTINGP ERFORMED BY: CB [facility] Scehry[address] RoadDublin [place] [id number]; fu 6-16 kf LIPID PANEL (77252) 15 mg/dL Normal 5-40 Compr ehens[facility]; [facility] Work Phone: Comment on above: PATIENT WAS FASTINGP ERFORMED BY: CB [facility] Trbgzt04[address]Dublin [place] [id number]; fu 6-16 kf LIPID PANEL (36945) 126 mg/dL Abnormal 0-99 Compr ehensive [facility]; [facility] Work Phone: Comment on above: PATIENT WAS FASTINGP ERFORMED BY: CB [facility] Hdufpe14[address] RoadDublin [place] [id number]; fu 616 kf LIPID PANEL (17958) 1.8 {ratio} Normal 0.0-3.2 [facility]; [facility] Work Phone: Comment on above: LDL/HDL Ratio Men Wo men 1/2 Avg.Risk 1.0 1.5 Avg.Risk 3.6 3.2 2X Avg.Risk 6.2 5.0 3X Avg.Risk 8.0 6.1 PATIENT WAS FASTINGP ERFORMED BY: CB [facility] Wugiwr98[address] RoadDublin [place] [id number]; fu 616 kf URINALYSIS (51274)Ordered By : Bread Wrapping Machine Feeder on 12-30-2021 Appearance (U) Clear Normal [facility]; [facility] Work Phone: Comment on above: PERFORMED BY: [employer] jennifer Jdqchc39[address] RoadDublin [place] [id number] Information: SRC:UR Bilirubin Ql (U) Negative Normal Comprehe nsive [facility]; [facility] Work Phone: Comment on above: PERFORMED BY: LikeLike[employer]com[address] Linksyin [place] [id number] Information: SRC:UR Color (U) Yellow Normal [facility]; [facility] Work Phone: Comment on above: PERFORMED BY: [email or web address] [place] [id number] Information: SRC:UR Glucose Ql (U) Negative Normal [facility]; [facility] Work Phone: Comment on above: PERFORMED BY: [employer] MccordP[address] [place] [id number] Information: SRC:UR Hemoglobin Ql (U) Negative Normal Compreh ensive [facility]; [facility] Work Phone: Comment on above: PERFORMED BY: SonicsME911 [place] [id number] Information: SRC:UR Ketones Ql (U) Negative Normal Comprehens [facility]; [facility] Work Phone: Comment on above: PERFORMED BY: [facility]Kind[facility] [id number] Information: SRC:UR Leukocyte esterase Test strip Ql (U) Negative Normal [facility]; [facility] Work Phone: Comment on above: PERFORMED BY: Carhoots.com70 CiashopKindred Hospital [facility] [id number] Information: SRC:UR Microscopic observation LM Nom (Urine sed) MICNIP Normal [facility]; [facility] Work Phone: Comment on above: Microscopic not ney cated and not performed. PERFORMED BY: [email or web address] [facility]ashopKindred [facility] [id number] Information: SRC:UR Nitrite Ql (U) Negative Normal Comprehens [facility]; [facility] Work Phone: Comment on above: PERFORMED BY: Slip Stopperslin[address] LinksyKindred Hospital [facility] [id number] Information: SRC:UR pH (U) 6.5 [pH] Normal 5.0-7.5 [facility]; [facility] Work Phone: Comment on above: PERFORMED BY: [employer] [place] [id number] Information: SRC:UR Protein Ql (U) Negative Normal [facility]prehens [facility]; [facility] Work Phone: Comment on above: PERFORMED BY: [employer] [place] [id number] Information: SRC:UR Specific gravity (U) [Rel density] 1.014 1 Normal 1.005-1.03 0 [facility]; [facility] Work Phone: Comment on above: PERFORMED BY: [employer] [place] [id number] Information: SRC:UR Urobilinogen (U) [Mass/Vol] 0.2 mg/dL Normal 0.2-1.0 [facility]; [facility] Work Phone: Comment on above: PERFORMED BY: [employer] [place] [id number] Information: SRC:UR URINE DONNY CULTURE-NAA COL C OUNT (28075)Ordered By: Bread Wrapping Machine Feeder on 12-30-2021 Bacteria identified Cx Nom (U) Final report Abnormal [facility]; [facility] Work Phone: Comment on above: PERFORMED BY: [email or web address] [place] [id number] Bacteria identified Cx Nom (U) Morganella morganii Abnormal Comprehensiv e [facility]; [facility] Work Phone: Comment on above: 700 Colonies/mL PERFORMED BY: [employer] [place] [id number] Other Antibiotic [Susc] MIHEAD Normal [facility]; [facility] Work Phone: Comment on above: S = Susceptible; I = Intermediate; R = Resistant P = Positive; N = Negative MICS are expressed in micrograms per mL Antibiotic RSLT#1 RSLT#2 RSLT#3 RSLT#4Amoxicillin/Clavulanic Acid RAmpicillin RCefazolin RCefuroxime RCiprofloxacin SErtapenem SGentamicin SLevofloxacin SMeropenem SNitrofurantoin RPiperacillin/Tazobactam STetracycline STobramycin STrimethoprim/Sulfa S PERFORMED BY: [employer] [facility] jennifer Wexill[address] AircuityCritical Access Hospitalin [place] [id number] URINE DONNY CULTURE-IDENTIFICA [place] ([id number])Ordered By: Bread Wrapping Machine Feeder on 09-30-2021 Bacteria identified Cx Nom (U) Final report Abnormal [facility]; [facility] Work Phone: Comment on above: PATIENT NOT FASTINGP ERFORMED BY: [facility] Gvxnpy[address] AircuityAtrium Health Pineville [id number] Information: SRC: Bacteria identified Cx Nom (U) Morganella morganii Abnormal Comprehensiv e [facility]; [facility] Work Phone: Comment on above: 10,000-25,000 colony forming units per mL PATIENT NOT FASTINGP ERFORMED BY: [facility] Ogvvwa[address] AircuityAtrium Health Pineville [id number] Information: SRC:UC Bacteria identified Cx Nom (U) MUG Normal [facility]; [facility] Work Phone: Comment on above: Mixed urogenital yenni ra25,000-50,000 colony forming units per mL S = Susceptible; I = Intermediate; R = Resistant P = Positive; N = Negative MICS are expressed in micrograms per mL Antibiotic RSLT#1 RSLT#2 RSLT#3 RSLT#4Amoxicillin/Clavulanic Acid RAmpicillin RCefazolin RCefuroxime RCiprofloxacin SErtapenem SGentamicin SImipenem ILevofloxacin SMeropenem SNitrofurantoin RPiperacillin/Tazobactam STetracycline STobramycin STrimethoprim/Sulfa S PATIENT NOT FASTINGP ERFORMED BY: [facility] Ifemvl[address] AircuityAtrium Health Pineville [id number] Information: SRC: Urinalysis, Office ([id number])Or dered By: Makayla Guillen on 09-30-2021 Bilirubin Ql (U) Negative Normal Comprehe nsive [facility]; [facility] Work Phone: Glucose Test strip (U) [Mass/Vol] Negative Normal [facility]; [facility] Work Phone: Hemoglobin Ql (U) Negative Normal Compreh ensive [facility]; [facility] Work Phone: Ketones Ql (U) Negative Normal Comprehens [facility]; [facility] Work Phone: Leukocyte esterase Test strip Ql (U) Negative Normal [facility]; [facility] Work Phone: Nitrite Ql (U) Negative Normal Comprehens [facility]; [facility] Work Phone: pH (U) 6 [pH] Abnormal [facility]; [facility] Work Phone: Protein Ql (U) Negative Normal Comprehens [facility]; [facility] Work Phone: Specific gravity (U) [Rel density] 1.025 1 Normal [facility]; [facility] Work Phone: Urobilinogen (24H U) [Mass/Time] Normal Normal [facility]; [facility] Work Phone: URINE DONNY CULTURE-IDENTIFICA [place] ([id number])Ordered By: Bread Wrapping Machine Feeder on 09-15-2021 Bacteria identified Cx Nom (U) Final report Abnormal [facility]; [facility] Work Phone: Comment on above: PATIENT NOT FASTINGP ERFORMED BY: CALLIE LabcoInspira Medical Center WoodburyEipzgn8293 [facility] [id number] Information: SRC:UC Bacteria identified Cx Nom (U) Escherichia coli Abnormal [facility]; [facility] Work Phone: Comment on above: Cefazolin <=4 ug/mLC efazolin with an АЛЕКСАНДР <=16 predicts susceptibility to the oral agentscefaclor, cefdinir, cefpodoxime, cefprozil, cefuroxime, cephalexin,and loracarbef when used for therapy of uncomplicated urinary tractinfections due to E. coli, Klebsiella pneumoniae, and Proteusmirabilis.Greater than 100,000 colony forming units per mL PATIENT NOT FASTINGP ERFORMED BY: Cloudbot6370 [facility]ashopKind[facility] [id number] Information: SRC:BETO Other Antibiotic [Susc] MIHEAD Normal [facility]; [facility] Work Phone: Comment on above: S = Susceptible; I = Intermediate; R = Resistant P = Positive; N = Negative MICS are expressed in micrograms per mL Antibiotic RSLT#1 RSLT#2 RSLT#3 RSLT#4Amoxicillin/Clavulanic Acid SAmpicillin SCefepime SCeftriaxone SCefuroxime SCiprofloxacin SErtapenem SGentamicin SImipenem SLevofloxacin SMeropenem SNitrofurantoin SPiperacillin/Tazobactam STetracycline STobramycin STrimethoprim/Sulfa S PATIENT NOT FASTINGP ERFORMED BY: CALLIE GroupSpaces[address] AircuityAtrium Health Pineville [id number] Information: SRC: Urinalysis, Office ([id number])Or dered By: Mireya Coates on 09-15-2021 Bilirubin Ql (U) Negative Normal Comprehe nsive Internal Medicine; [facility] Work Phone: Glucose Test strip (U) [Mass/Vol] Negative Normal [facility]; [facility] Work Phone: Hemoglobin Ql (U) Negative Normal Compreh ensive [facility]; [facility] Work Phone: Ketones Ql (U) Negative Normal Comprehens [facility]; [facility] Work Phone: Leukocyte esterase Test strip Ql (U) Negative Normal [facility]; [facility] Work Phone: Nitrite Ql (U) Negative Normal Comprehens [facility]; [facility] Work Phone: pH (U) 6.5 [pH] Normal [facility]; [facility] Work Phone: Protein Ql (U) Negative Normal Comprehens [facility]; [facility] Work Phone: Specific gravity (U) [Rel density] 1.010 1 Normal [facility]; [facility] Work Phone: Urobilinogen (24H U) [Mass/Time] Normal Normal [facility]; [facility] Work Phone: Urinalysis, Office ([id number])Or dered By: Melissa Fields on 07-27-2021 Bilirubin Ql (U) Negative Normal Comprehe nsive Internal Medicine; [facility] Work Phone: Glucose Test strip (U) [Mass/Vol] Negative Normal [facility]; [facility] Work Phone: Hemoglobin Ql (U) ++ Abnormal Compreh ensive [facility]; [facility] Work Phone: Ketones Ql (U) Negative Normal Comprehens [facility]; [facility] Work Phone: Leukocyte esterase Test strip Ql (U) Large Normal [facility]; [facility] Work Phone: Nitrite Ql (U) + Abnormal Comprehens [facility]; [facility] Work Phone: pH (U) 6.0 [pH] Normal [facility]; [facility] Work Phone: Protein Ql (U) + Abnormal Comprehens [facility]; [facility] Work Phone: Specific gravity (U) [Rel density] 1.020 1 Normal [facility]; [facility] Work Phone: Urobilinogen (24H U) [Mass/Time] Normal Normal [facility]; [facility] Work Phone: CBC with auto diff (75153)Or dered By: Bread Wrapping Machine Feeder on 07-25-2021 Basophils (Bld) [#/Vol] 0.1 10*3/uL Normal 0.0-0.2 [facility]; [facility] Work Phone: Comment on above: Test(s) 963268-WFJ-W ; 426034-LZU-W; 565448-Pducrqbjmlhaa; 612319-Ytxeccwizqk, Total; 273595-FUY-I (Total); 511826-Mnwgv LDL-P; 576164-KQT Size; 838192-WV-YT Scorewas developed and its performance characteristics determinedby [employer]. It has not been cleared or approved by the Foodand Drug Administration.PATIENT WAS FASTINGPERFORMED BY: [employer] [address] [id number] BY: OrderWithMe70 [facility] [id number] Basophils/100 WBC (Bld) 1 % Normal [facility]; [facility] Work Phone: Comment on above: Test(s) 331836-QUE-V ; 561598-BKS-O; 344889-Xyqednqikskww; 371491-Souwkgxhbhf, Total; 190145-VBZ-U (Total); 243322-Nefud LDL-P; 060939-ANL Size; 003509-AX-UW Scorewas developed and its performance characteristics determinedby [employer]. It has not been cleared or approved by the Foodand Drug Administration.PATIENT WAS FASTINGPERFORMED BY: [employer] [address] [id number] BY: OrderWithMe70 [facility] [id number] Eosinophils (Bld) [#/Vol] 0.3 10*3/uL Normal 0.0-0.4 [facility]; [facility] Work Phone: Comment on above: Test(s) 396294-KMD-K ; 195807-UJW-V; 775585-Oohplejhbndld; 985946-Hicfglhsqgp, Total; 565804-XCG-T (Total); 289494-Mibfl LDL-P; 258144-EFU Size; 301820-BB-AW Scorewas developed and its performance characteristics determinedby [employer]. It has not been cleared or approved by the Foodand Drug Administration.PATIENT WAS FASTINGPERFORMED BY: [employer] [address] [id number] BY: [employer] Vyxdgq8814 [facility] [id number] Eosinophils/100 WBC (Bld) 4 % Normal [facility]; [facility] Work Phone: Comment on above: Test(s) 162014-KRB-J ; 848326-DGH-F; 731165-Ciazvmlrlipwa; 893267-Bvgbxqqiuvw, Total; 578778-VER-G (Total); 235981-Tigsg LDL-P; 486441-PEY Size; 540008-EG-RD Scorewas developed and its performance characteristics determinedby [employer]. It has not been cleared or approved by the Foodand Drug Administration.PATIENT WAS FASTINGPERFORMED BY: [employer] [address] [id number] BY: OrderWithMe70 [facility] [id number] Erythrocyte distribution width (RBC) [Ratio] 13.1 % Normal 11.7-15.4 [facility]; [facility] Work Phone: Comment on above: Test(s) 812861-HIR-D ; 619572-SYT-G; 227218-Joxrresngtxkm; 209112-Gndnrflecee, Total; 801070-TSU-W (Total); 587938-Qexus LDL-P; 887558-REQ Size; 236315-KK-LM Scorewas developed and its performance characteristics determinedby [employer]. It has not been cleared or approved by the Foodand Drug Administration.PATIENT WAS FASTINGPERFORMED BY: [employer] [address] [id number] BY: Cloudbot6370 [facility] [id number] Hematocrit (Bld) [Volume fraction] 43.4 % Normal 34.0-46.6 [facility]; [facility] Work Phone: Comment on above: Test(s) 695482-RNI-X ; 388393-AXQ-O; 821887-Owcodanexalzb; 671392-Ceoupdvcxdh, Total; 507610-FOB-U (Total); 917438-Xowhg LDL-P; 022784-JJV Size; 199911-WR-KZ Scorewas developed and its performance characteristics determinedby [employer]. It has not been cleared or approved by the Foodand Drug Administration.PATIENT WAS FASTINGPERFORMED BY: [employer] [id number] BY: [employer] Rofbkk9546 [facility] [id number] Hemoglobin (Bld) [Mass/Vol] 14.3 g/dL Normal 11.1-15.9 [facility]; [facility] Work Phone: Comment on above: Test(s) 175369-AFE-P ; 635694-DUI-L; 330301-Qkkrpqxiisuuk; 195655-Hhgtjxozacx, Total; 384815-IVA-M (Total); 794405-Ftnzs LDL-P; 926600-KKQ Size; 355807-UF-ML Scorewas developed and its performance characteristics determinedby [employer]. It has not been cleared or approved by the Foodand Drug Administration.PATIENT WAS FASTINGPERFORMED BY: [employer] [address] [id number] BY: Cloudbot6370 [facility] [id number] Immature granulocytes (Bld) [#/Vol] 0.0 10*3/uL Normal 0.0-0.1 [facility]; [facility] Work Phone: Comment on above: Test(s) 010872-IRZ-P ; 938651-PTK-Y; 445440-Ehueuvdcyqyuf; 485625-Ombzwouywoj, Total; 741757-IUZ-K (Total); 386588-Skllo LDL-P; 217658-FTE Size; 769679-XT-FO Scorewas developed and its performance characteristics determinedby [employer]. It has not been cleared or approved by the Foodand Drug Administration.PATIENT WAS FASTINGPERFORMED BY: [employer] [id number] BY: CrowdmarkInspira Medical Center WoodburyAzrxay8291 [facility] [id number] Immature granulocytes/100 WBC (Bld) 0 % Normal [facility]; [facility] Work Phone: Comment on above: Test(s) 611676-PPG-W ; 386265-IPD-O; 428515-Toalboomtlfds; 385046-Wyprrivaqdd, Total; 536681-ACW-S (Total); 687945-Kqkiv LDL-P; 046332-NMZ Size; 394949-VO-XH Scorewas developed and its performance characteristics determinedby [employer]. It has not been cleared or approved by the Foodand Drug Administration.PATIENT WAS FASTINGPERFORMED BY: [employer] [address] [id number] BY: [employer] Bmodfv0969 [facility] [id number] Lymphocytes (Bld) [#/Vol] 1.7 10*3/uL Normal 0.7-3.1 [facility]; [facility] Work Phone: Comment on above: Test(s) 371688-ADE-A ; 011923-JHE-U; 343138-Dwzkpftmcakfy; 184442-Evffkmmhidx, Total; 393443-ADO-R (Total); 338605-Eomyk LDL-P; 466182-OMN Size; 144597-UT-AU Scorewas developed and its performance characteristics determinedby [employer]. It has not been cleared or approved by the Foodand Drug Administration.PATIENT WAS FASTINGPERFORMED BY: [employer] [address] [id number] BY: [employer] Szrycj1576 [facility] [id number] Lymphocytes/100 WBC (Bld) 25 % Normal [facility]; [facility] Work Phone: Comment on above: Test(s) 743024-KDF-W ; 921009-MAI-C; 685871-Euppuauvmfygr; 877734-Wbldmklwppn, Total; 763489-PVU-N (Total); 672441-Hbmdp LDL-P; 066370-OKZ Size; 660993-BB-TQ Scorewas developed and its performance characteristics determinedby [employer]. It has not been cleared or approved by the Foodand Drug Administration.PATIENT WAS FASTINGPERFORMED BY: [employer] [address] [id number] BY: Cloudbot6370 [facility] [id number] MCH (RBC) [Entitic mass] 29.7 pg Normal 26.6-33.0 [facility]; [facility] Work Phone: Comment on above: Test(s) 971512-HCK-E ; 958618-HYL-K; 814422-Ddsyqneyndzrm; 044877-Swdhqfwefej, Total; 291266-LBO-Z (Total); 280392-Lqvxp LDL-P; 519296-SSY Size; 031923-VM-HR Scorewas developed and its performance characteristics determinedby [employer]. It has not been cleared or approved by the Foodand Drug Administration.PATIENT WAS FASTINGPERFORMED BY: [employer] [address] [id number] BY: OrderWithMe70 [facility] [id number] MCHC (RBC) [Mass/Vol] 32.9 g/dL Normal 31.5-35.7 [facility]; [facility] Work Phone: Comment on above: Test(s) 299176-JYY-U ; 353855-MSM-P; 502061-Ddelpqqymdoro; 371729-Cnkmdvfssrt, Total; 060537-LFG-X (Total); 035162-Dqshd LDL-P; 460915-MND Size; 865505-DL-ID Scorewas developed and its performance characteristics determinedby [employer]. It has not been cleared or approved by the Foodand Drug Administration.PATIENT WAS FASTINGPERFORMED BY: [employer] [address] [id number] BY: Cloudbot6370 [facility] [id number] MCV (RBC) [Entitic vol] 90 fL Normal 79-97 [facility]; [facility] Work Phone: Comment on above: Test(s) 679094-AHW-B ; 833108-QZU-V; 134477-Yjawahxqfmrqq; 469619-Vwphfrirjxk, Total; 579618-FUU-V (Total); 528538-Otrgy LDL-P; 769023-BLX Size; 133997-UD-CU Scorewas developed and its performance characteristics determinedby [employer]. It has not been cleared or approved by the Foodand Drug Administration.PATIENT WAS FASTINGPERFORMED BY: [employer] [address] [id number] BY: OrderWithMe70 [facility] [id number] Monocytes (Bld) [#/Vol] 0.5 10*3/uL Normal 0.1-0.9 [facility]; [facility] Work Phone: Comment on above: Test(s) 847487-JLM-P ; 462903-OCQ-H; 195400-Gepdxwslvbwsj; 122310-Mrvdzjffnue, Total; 880102-XFS-O (Total); 477344-Ngwll LDL-P; 264170-HGN Size; 196892-KM-NZ Scorewas developed and its performance characteristics determinedby [employer]. It has not been cleared or approved by the Foodand Drug Administration.PATIENT WAS FASTINGPERFORMED BY: [employer] [address] [id number] BY: OrderWithMe70 [facility] [id number] Monocytes/100 WBC (Bld) 8 % Normal [facility]; [facility] Work Phone: Comment on above: Test(s) 183239-UID-D ; 966077-DRK-Z; 515279-Oujxywvdndzrp; 022533-Yrdkeekxoze, Total; 764103-PCA-T (Total); 878980-Jiwkh LDL-P; 020246-RUB Size; 078692-BX-LI Scorewas developed and its performance characteristics determinedby [employer]. It has not been cleared or approved by the Foodand Drug Administration.PATIENT WAS FASTINGPERFORMED BY: [employer] [address] [id number] BY: OrderWithMe70 [facility] [id number] Neutrophils (Bld) [#/Vol] 4.3 10*3/uL Normal 1.4-7.0 [facility]; [facility] Work Phone: Comment on above: Test(s) 672133-ZBJ-R ; 772059-RTD-E; 581863-Vyllujrdtijlo; 292954-Pbaaxfqvcey, Total; 258870-SKK-O (Total); 149479-Gpbkh LDL-P; 942751-CHB Size; 450970-SY-VF Scorewas developed and its performance characteristics determinedby [employer]. It has not been cleared or approved by the Foodand Drug Administration.PATIENT WAS FASTINGPERFORMED BY: [employer] [id number] BY: OrderWithMe70 [facility] [id number] Neutrophils/100 WBC (Bld) 62 % Normal [facility]; [facility] Work Phone: Comment on above: Test(s) 676922-RMP-R ; 540418-MYT-B; 828372-Lalilumdvotvb; 297035-Ouocvykybsb, Total; 947997-IHS-J (Total); 850921-Rwzre LDL-P; 690686-CPX Size; 995139-KR-LN Scorewas developed and its performance characteristics determinedby [employer]. It has not been cleared or approved by the Foodand Drug Administration.PATIENT WAS FASTINGPERFORMED BY: [employer] [address] [id number] BY: [employer] Ktoeoj2295 [facility] [id number] Platelets (Bld) [#/Vol] 271 10*3/uL Normal 150-450 [facility]; [facility] Work Phone: Comment on above: Test(s) 031811-RAW-X ; 549649-KLW-Z; 028436-Zvpwzebfszgbd; 263366-Rmgtlswnneb, Total; 989707-KRD-B (Total); 534721-Vtwpz LDL-P; 221405-NED Size; 513806-AA-CQ Scorewas developed and its performance characteristics determinedby [employer]. It has not been cleared or approved by the Foodand Drug Administration.PATIENT WAS FASTINGPERFORMED BY: [employer] [id number] BY: [employer] Yqekbq5825 [facility] [id number] RBC (Bld) [#/Vol] 4.82 10*6/uL Normal 3.77-5.28 [facility] Internal Medicine; [facility] Work Phone: Comment on above: Test(s) 055326-CEY-F ; 797259-JZO-U; 675259-Kgswkwftyqeqr; 081966-Ihgdqogyjhm, Total; 222125-NUK-L (Total); 200258-Hjuqu LDL-P; 665370-YBP Size; 617772-YQ-BD Scorewas developed and its performance characteristics determinedby [employer]. It has not been cleared or approved by the Foodand Drug Administration.PATIENT WAS FASTINGPERFORMED BY: [employer] [address] [id number] BY: [employer] Tuoglf8336 [facility] [id number] WBC (Bld) [#/Vol] 6.8 10*3/uL Normal 3.4-10.8 [facility] Internal Medicine; [facility] Work Phone: Comment on above: Test(s) 818396-FFF-V ; 875830-EOC-X; 442068-Iowbexgdgycgw; 837435-Abipypnknls, Total; 821126-ZAZ-V (Total); 520113-Bpwqx LDL-P; 785105-EBR Size; 563150-QT-HR Scorewas developed and its performance characteristics determinedby [employer]. It has not been cleared or approved by the Foodand Drug Administration.PATIENT WAS FASTINGPERFORMED BY: [employer] [id number] BY: [employer] Hlwtrz1910 [facility] [id number] METABOLIC PANEL, COMPREHENSI VE (47193)Ordered By: Bread Wrapping Machine Feeder on 07-25-2021 Albumin [Mass/Vol] 4.7 g/dL Normal 3.8-4.9 [facility] Internal [facility]; [facility] Work Phone: Comment on above: Test(s) 703556-XKA-A ; 532701-JBW-W; 256092-Erkmmskiixkdm; 630473-Guftcghdwmc, Total; 256381-BTE-B (Total); 389734-Tgaot LDL-P; 951073-QVV Size; 795069-MH-UV Scorewas developed and its performance characteristics determinedby [employer]. It has not been cleared or approved by the Foodand Drug Administration.PATIENT WAS FASTINGPERFORMED BY: [employer] [id number] BY: OrderWithMe70 [facility] CommerceM[facility] [id number] Albumin/Globulin [Mass ratio] 2.0 {ratio} Normal 1.2-2.2 [facility] Internal Medicine; [facility] Work Phone: Comment on above: Test(s) 345173-ONH-A ; 188226-KMP-U; 411939-Lxlllgkysevvp; 357587-Keogizsnulm, Total; 672861-JJC-G (Total); 733035-Bzqcf LDL-P; 881971-ZLW Size; 558937-JV-QM Scorewas developed and its performance characteristics determinedby [employer]. It has not been cleared or approved by the Foodand Drug Administration.PATIENT WAS FASTINGPERFORMED BY: [employer] [id number] BY: Cloudbot6370 [facility] [id number] ALP [Catalytic activity/Vol] 95 U/L Normal 44-121 [facility]; [facility] Work Phone: Comment on above: Please note refere nce interval change Test(s) 283098-EUS-Z ; 849410-RQJ-L; 925809-Asczbmbnqjkzh; 706241-Ccjwyaxsjaq, Total; 321042-OHX-C (Total); 499592-Kkuvh LDL-P; 226487-QKM Size; 325263-TZ-TK Scorewas developed and its performance characteristics determinedby [employer]. It has not been cleared or approved by the Foodand Drug Administration.PATIENT WAS FASTINGPERFORMED BY: [employer] [id number] BY: [employer] Ikvsby0554 [place] AircuityAtrium Health [facility]ville [id number] ALT [Catalytic activity/Vol] 18 U/L Normal 0-32 [facility]; [facility] Work Phone: Comment on above: Test(s) 220725-UWJ-C ; 714064-ZCS-W; 756298-Igjietuqupvzt; 466473-Npzshzqpbio, Total; 580746-EXT-A (Total); 218248-Syswu LDL-P; 097686-NLL Size; 980104-WM-KD Scorewas developed and its performance characteristics determinedby [employer]. It has not been cleared or approved by the Foodand Drug Administration.PATIENT WAS FASTINGPERFORMED BY: [employer] [address] [id number] BY: OrderWithMe70 [facility] [id number] AST [Catalytic activity/Vol] 22 U/L Normal 0-40 [facility] Internal [facility]; [facility] Work Phone: Comment on above: Test(s) 278821-WBD-D ; 646749-XQT-D; 924694-Ioowmajjgaiay; 493390-Flfgiobtibu, Total; 123401-LMO-K (Total); 282368-Trqcu LDL-P; 674940-TMY Size; 606636-AI-NO Scorewas developed and its performance characteristics determinedby [employer]. It has not been cleared or approved by the Foodand Drug Administration.PATIENT WAS FASTINGPERFORMED BY: [employer] [id number] BY: Cloudbot6370 [place] AircuityAtrium Health [facility]ville [id number] Bilirubin [Mass/Vol] 0.3 mg/dL Normal 0.0-1.2 [facility]; [facility] Work Phone: Comment on above: Test(s) 029593-CRU-X ; 887654-XHF-D; 831157-Mlyzabsgxvuzy; 244720-Tltywmikzzc, Total; 867559-MIN-J (Total); 379025-Jhoce LDL-P; 834283-ADC Size; 764019-XP-RI Scorewas developed and its performance characteristics determinedby [employer]. It has not been cleared or approved by the Foodand Drug Administration.PATIENT WAS FASTINGPERFORMED BY: [employer] [address] [id number] BY: OrderWithMe70 [facility] [id number] Calcium [Mass/Vol] 9.8 mg/dL Normal 8.7-10.2 [facility] Internal [facility]; [facility] Work Phone: Comment on above: Test(s) 209568-MUB-C ; 314125-JNC-Y; 668014-Gdcxpqlrqrdew; 403033-Nmwfyiyyeyi, Total; 664147-LTC-K (Total); 177168-Jtbnb LDL-P; 377538-EPK Size; 005994-DY-UI Scorewas developed and its performance characteristics determinedby [employer]. It has not been cleared or approved by the Foodand Drug Administration.PATIENT WAS FASTINGPERFORMED BY: [employer] [address] [id number] BY: Cloudbot6370 [place] LinksyKindred Hospital [facility] [id number] Chloride [Moles/Vol] 103 mmol/L Normal 96-106 [facility] Internal Medicine; [facility] Work Phone: Comment on above: Test(s) 267885-RKS-Q ; 916862-EZR-G; 259676-Erpcdoxhlvmlz; 283704-Yywlhanuxqw, Total; 385130-FCE-K (Total); 591397-Ridyd LDL-P; 953076-IOM Size; 423580-WE-RL Scorewas developed and its performance characteristics determinedby [employer]. It has not been cleared or approved by the Foodand Drug Administration.PATIENT WAS FASTINGPERFORMED BY: [employer] [id number] BY: Cloudbot6370 [facility] [id number] CO2 [Moles/Vol] 18 mmol/L Abnormal 20-29 [facility] Internal Medicine; [facility] Work Phone: Comment on above: Test(s) 377978-YFI-U ; 107113-GHJ-O; 354772-Dantwuqomdrgc; 606236-Buvlbeclqmc, Total; 975545-BAT-Y (Total); 736304-Rgyri LDL-P; 578489-NZR Size; 205502-QQ-NQ Scorewas developed and its performance characteristics determinedby [employer]. It has not been cleared or approved by the Foodand Drug Administration.PATIENT WAS FASTINGPERFORMED BY: [employer] [id number] BY: Cloudbot6370 [facility] [id number] Creatinine [Mass/Vol] 0.70 mg/dL Normal 0.57-1.00 [facility] Internal Medicine; [facility] Work Phone: Comment on above: Test(s) 765539-KJC-Y ; 161112-PIQ-Q; 646330-Bofyhyhinybbk; 794479-Gdeqsihermu, Total; 081817-IAQ-Q (Total); 846747-Dkbre LDL-P; 111513-XWA Size; 268273-NE-VR Scorewas developed and its performance characteristics determinedby [employer]. It has not been cleared or approved by the Foodand Drug Administration.PATIENT WAS FASTINGPERFORMED BY: [employer] [id number] BY: Cloudbot6370 [facility] [id number] GFR/1.73 sq M.predicted among blacks CKD-EPI (S/P/Bld) [Vol rate/Area] 114 mL/min/1.73 Normal [facility]; [facility] Work Phone: Comment on above: In accordance with recommendations from the NKF-ASN Task force, [facility] is in the process of updating its eGFR calculation to the 2020 CKD-EPI creatinine equation that estimates kidney function without a race variable. Test(s) 311476-BBP-Y ; 333230-VBC-R; 318645-Tjtegcauabotc; 728147-Wwejpcgixdo, Total; 320022-ADC-I (Total); 075286-Mhhrv LDL-P; 865439-SYP Size; 028090-PO-RH Scorewas developed and its performance characteristics determinedby [employer]. It has not been cleared or approved by the Foodand Drug Administration.PATIENT WAS FASTINGPERFORMED BY: [employer] [address] [id number] BY: [employer] TacticalUNM Sandoval Regional Medical CenterBuplpn6286 [facility] [id number] GFR/1.73 sq M.predicted among non-blacks CKD-EPI (S/P/Bld) [Vol rate/Area] 99 mL/min/1.73 Normal [facility]; [facility] Work Phone: Comment on above: Test(s) 719731-ZKZ-P ; 012196-OJR-W; 729402-Imsyddxpvkmcu; 733420-Bwzaanfxafg, Total; 229412-KZD-O (Total); 232293-Rbvin LDL-P; 182448-KZR Size; 519266-EL-CZ Scorewas developed and its performance characteristics determinedby [employer]. It has not been cleared or approved by the Foodand Drug Administration.PATIENT WAS FASTINGPERFORMED BY: [employer] [id number] BY: [place] TacticalInspira Medical Center WoodburyFewsrr6207 [facility] [id number] Globulin (S) [Mass/Vol] 2.4 g/dL Normal 1.5-4.5 [facility]; [facility] Work Phone: Comment on above: Test(s) 448327-AVM-K ; 160235-LCM-C; 283319-Cmplzdroyyzxc; 343987-Qhndcevhucd, Total; 687336-DUN-R (Total); 506858-Rygnm LDL-P; 321874-RIM Size; 653504-HY-YV Scorewas developed and its performance characteristics determinedby [employer]. It has not been cleared or approved by the Foodand Drug Administration.PATIENT WAS FASTINGPERFORMED BY: [employer] [address] [id number] BY: OrderWithMe70 [place] LinksyKindred Hospital [facility] [id number] Glucose [Mass/Vol] 87 mg/dL Normal 65-99 [facility] Internal Medicine; [facility] Work Phone: Comment on above: Test(s) 260758-UDY-X ; 252753-FBW-V; 286562-Qtijkvyrhyvxp; 506585-Ecmtffjlgrc, Total; 391977-YEB-K (Total); 014407-Iygis LDL-P; 122171-RFA Size; 389953-GP-BW Scorewas developed and its performance characteristics determinedby [employer]. It has not been cleared or approved by the Foodand Drug Administration.PATIENT WAS FASTINGPERFORMED BY: [employer] [address] [id number] BY: OrderWithMe70 [facility] [id number] Potassium [Moles/Vol] 4.4 mmol/L Normal 3.5-5.2 [facility] Internal Medicine; [facility] Work Phone: Comment on above: Test(s) 677433-EEU-O ; 465859-VCE-G; 203494-Urgweujcnjvld; 646338-Wxiukiulsat, Total; 078214-UKS-N (Total); 864325-Ntzlu LDL-P; 749580-DLL Size; 534907-SF-FI Scorewas developed and its performance characteristics determinedby [employer]. It has not been cleared or approved by the Foodand Drug Administration.PATIENT WAS FASTINGPERFORMED BY: [employer] [address] [id number] BY: OrderWithMe70 [facility] RoadAtrium Health Pineville [id number] Protein [Mass/Vol] 7.1 g/dL Normal 6.0-8.5 [facility] Internal [facility]; [facility] Work Phone: Comment on above: Test(s) 129879-HZN-B ; 123211-TGG-B; 578376-Oydpvjaoljjiv; 137934-Qpsfjymbbzo, Total; 564085-RKL-S (Total); 009870-Jiubq LDL-P; 317002-YPA Size; 974288-AC-NE Scorewas developed and its performance characteristics determinedby [employer]. It has not been cleared or approved by the Foodand Drug Administration.PATIENT WAS FASTINGPERFORMED BY: [employer] [address] [id number] BY: OrderWithMe70 [facility] [id number] Sodium [Moles/Vol] 138 mmol/L Normal 134-144 [facility] Internal Medicine; [facility] Internal Medicine Work Phone: Comment on above: Test(s) 431381-RNH-H ; 003092-WAX-A; 671258-Jtcdfoikghieb; 344740-Ikbrbknyeod, Total; 641702-XQN-H (Total); 537895-Ksyed LDL-P; 799029-JBX Size; 876971-AT-ST Scorewas developed and its performance characteristics determinedby [employer]. It has not been cleared or approved by the Foodand Drug Administration.PATIENT WAS FASTINGPERFORMED BY: [employer] [address] [id number] BY: Cloudbot6370 [place] AircuityAtrium Health Pineville [id number] Urea nitrogen [Mass/Vol] 17 mg/dL Normal 6-24 [facility]; [facility] Work Phone: Comment on above: Test(s) 281843-PBS-A ; 637969-RCI-W; 226604-Ukqxsgrhpitwj; 969166-Qwgwbwcpkqm, Total; 469869-YUT-J (Total); 836921-Plakt LDL-P; 989677-ULY Size; 725372-JD-OI Scorewas developed and its performance characteristics determinedby [employer]. It has not been cleared or approved by the Foodand Drug Administration.PATIENT WAS FASTINGPERFORMED BY: [employer] [id number] BY: OrderWithMe70 [facility] [id number] Urea nitrogen/Creatinine [Mass ratio] 24 mg/mg Abnormal 04-21 [facility]; [facility] Work Phone: Comment on above: Test(s) 387703-NJS-B ; 790168-YHR-D; 448343-Bhwligmqtevia; 542013-Gdgolyetqjs, Total; 848262-BBN-F (Total); 533172-Cymyl LDL-P; 409212-KIZ Size; 731615-IC-AL Scorewas developed and its performance characteristics determinedby [employer]. It has not been cleared or approved by the Foodand Drug Administration.PATIENT WAS FASTINGPERFORMED BY: [employer] [id number] BY: OrderWithMe70 [facility] [id number] MICROALBUMINOrdered By: [employer] Sales Consultant on 07-25-2021 Albumin DL <= 20 mg/L (U) [Mass/Vol] 61.9 ug/mL Normal [facility]; [facility] Work Phone: Comment on above: Test(s) 026183-XGS-W ; 881519-GPS-C; 919827-Dmqsivakuoqtv; 431811-Oyflxndstms, Total; 933239-SXS-Q (Total); 502381-Zhogu LDL-P; 737061-IEX Size; 885078-RH-CT Scorewas developed and its performance characteristics determinedby [employer]. It has not been cleared or approved by the Foodand Drug Administration.PATIENT WAS FASTINGPERFORMED BY: [employer] [address] [id number] BY: OrderWithMe70 [facility] [id number] Albumin/Creatinine (U) [Mass ratio] 36 {mg/g_creat} Abnormal 0-29 [facility]; [facility] Work Phone: Comment on above: Normal: 0 - 29 Moder ately increased: 30 - 300 Severely increased: >300 Test(s) 502698-JCH-T ; 375774-KAF-L; 211488-Kjoaxxnfmstee; 870318-Rqocqnqnavu, Total; 549154-ZDW-E (Total); 622684-Hmjkf LDL-P; 602457-DID Size; 211427-UJ-MO Scorewas developed and its performance characteristics determinedby [employer]. It has not been cleared or approved by the Foodand Drug Administration.PATIENT WAS FASTINGPERFORMED BY: [employer] [place] [address] [id number] BY: OrderWithMe70 AelurosAtrium Health Pineville [id number] Creatinine (U) [Mass/Vol] 172.2 mg/dL Normal [facility]; [facility] Work Phone: Comment on above: Test(s) 845562-DOO-J ; 357723-BAB-H; 511554-Oguzswmefbpfn; 599913-Hztzrmmuclh, Total; 191721-JAG-B (Total); 403846-Oanor LDL-P; 075814-AON Size; 744304-BB-SH Scorewas developed and its performance characteristics determinedby [employer]. It has not been cleared or approved by the Foodand Drug Administration.PATIENT WAS FASTINGPERFORMED BY: YouLicense1447 [facility] [id number] BY: Cloudbot6370 [facility] [id number] NMR Profile (77979)Ordered B y: Bread Wrapping Machine Feeder on 07-25-2021 Cholesterol [Mass/Vol] 255 mg/dL Abnormal 100-199 [facility]; [facility] Work Phone: Comment on above: Test(s) 733440-HWJ-F ; 201474-HAX-J; 168983-Drohcbelqjsiw; 575242-Fyleaicugvb, Total; 119147-RYY-G (Total); 163050-Vsarf LDL-P; 609374-UUV Size; 445914-GN-RJ Scorewas developed and its performance characteristics determinedby [employer]. It has not been cleared or approved by the Foodand Drug Administration.PATIENT WAS FASTINGPERFORMED BY: [employer] [address] [id number] BY: Cloudbot6370 [facility] [id number] Lipoprotein.alpha [Moles/Vol] 43.9 umol/L Normal [facility]; [facility] Work Phone: Comment on above: Test(s) 642069-OMX-G ; 661241-GDU-Z; 217135-Nkaudsacehhyw; 270003-Xifluelhrtu, Total; 276826-DDD-U (Total); 476025-Jqhsd LDL-P; 630364-GQX Size; 079920-WN-KR Scorewas developed and its performance characteristics determinedby [employer]. It has not been cleared or approved by the Foodand Drug Administration.PATIENT WAS FASTINGPERFORMED BY: [employer] [address] [id number] BY: OrderWithMe70 [facility] [id number] Lipoprotein.beta.subp article [Entitic length] 21.5 nm Normal [facility]; [facility] Work Phone: Comment on above: INTERPRETATIVE INFORMATION PARTICLE CONCENTRATION AND SIZE <--Lower CVD Risk Higher CVD Risk--> LDL AND HDL PARTICLES Percentile in Reference Population HDL-P (total) High 75th 50th 25th Low >34.9 34.9 30.5 26.7 <26.7 . Small LDL-P Low 25th 50th 75th High <117 117 527 839 >839 . LDL Size <-Large (Pattern A)-> <-Small (Pattern B)-> 23.0 20.6 20.5 19.0 Small LDL-P and LDL Size are associated with CVD risk, but not afterLDL-P is taken into account. Test(s) 052331-NDX-E ; 686467-RNT-U; 430530-Qarmtilgibefr; 955542-Kcswkiupxmk, Total; 853199-UPF-V (Total); 913483-Eytyu LDL-P; 910276-BYO Size; 847964-IZ-GR Scorewas developed and its performance characteristics determinedby [employer]. It has not been cleared or approved by the Foodand Drug Administration.PATIENT WAS FASTINGPERFORMED BY: [employer] [id number] BY: [employer]efied Natural Gasox AircuityAtrium Health Pineville [id number] Lipoprotein.beta.subp article [Moles/Vol] 1638 nmol/L Abnormal Comprehensiv e Internal [facility]; [facility] Work Phone: Comment on above: Low < 1000 Moderate 1000 - 1299 Borderline-High 1300 - 1599 High 1600 - 2000 Very High > 2000 Test(s) 793635-FHF-U ; 233190-DSC-R; 085926-Odyzbgxgpbojw; 195639-Ywdqpjfkjep, Total; 049707-UAV-C (Total); 161372-Gkxym LDL-P; 804465-LGG Size; 548576-MZ-IY Scorewas developed and its performance characteristics determinedby [employer]. It has not been cleared or approved by the Foodand Drug Administration.PATIENT WAS FASTINGPERFORMED BY: [employer] [address] [id number] BY: Liqu[facility] [facility] GasChristian Hospital [id number] Lipoprotein.beta.subp article.small [Moles/Vol] 604 nmol/L Abnormal [facility]; [facility] Work Phone: Comment on above: Test(s) 680239-MED-U ; 107984-GND-V; 998643-Dvbgjwctfwlgf; 335768-Gweoxmrsisd, Total; 787190-MKX-W (Total); 414493-Cgrhc LDL-P; 487748-LUC Size; 584829-WX-JS Scorewas developed and its performance characteristics determinedby [employer]. It has not been cleared or approved by the Foodand Drug Administration.PATIENT WAS FASTINGPERFORMED BY: [employer] [address] [id number] BY: [employer] Bvetjs8469 [facility] [id number] Triglyceride [Mass/Vol] 187 mg/dL Abnormal 0-149 [facility]; [facility] Work Phone: Comment on above: Test(s) 507942-JJP-P ; 846765-YKU-N; 247058-Adhgbvvrzyrcp; 987183-Muxxbldxybd, Total; 977826-RYF-J (Total); 468444-Plyaf LDL-P; 539123-RBW Size; 037263-OD-OS Scorewas developed and its performance characteristics determinedby [employer]. It has not been cleared or approved by the Foodand Drug Administration.PATIENT WAS FASTINGPERFORMED BY: [employer] [address] [id number] BY: [employer] Jccgja6506 [facility] [id number] NMR Profile (80614) 156 mg/dL Abnormal 0-99 [facility] Internal [facility]; [facility] Work Phone: Comment on above: . Optimal < 100 Abov e optimal 100 - 129 Borderline 130 - 159 High 160 - 189 Very high > 189 . Test(s) 096026-RCE-V ; 198081-JXE-E; 444420-Xebjrvczclimr; 025744-Moumufmltng, Total; 726044-YRG-O (Total); 211537-Fuvel LDL-P; 161897-YLL Size; 283805-GZ-YU Scorewas developed and its performance characteristics determinedby [employer]. It has not been cleared or approved by the Foodand Drug Administration.PATIENT WAS FASTINGPERFORMED BY: [employer] [id number] BY: [place] TacticalInspira Medical Center WoodburyLedsdh7076 [facility] [id number] NMR Profile (27033) 65 mg/dL Normal [facility] ehensive Internal Medicine; [facility] Work Phone: Comment on above: Test(s) 100370-QWR-U ; 106346-KHB-F; 709330-Pxxmpjgikkdia; 934638-Vmfofbdaekh, Total; 662113-ZTE-P (Total); 845210-Brwhg LDL-P; 987272-QLX Size; 574623-IM-SD Scorewas developed and its performance characteristics determinedby [employer]. It has not been cleared or approved by the Foodand Drug Administration.PATIENT WAS FASTINGPERFORMED BY: [employer] [address] [id number] BY: [place] TacticalInspira Medical Center WoodburyVifoja0475 [facility] [id number] NMR Profile (28946) 187 mg/dL Abnormal 0-149 [facility] ehensive Internal Medicine; [facility] Work Phone: NMR Profile (66294) 255 mg/dL Abnormal 100-199 [facility] ehensive Internal Medicine; [facility] Work Phone: TSH (THYROID STIMULATING HOR RANDY) (91762)Ordered By: Bread Wrapping Machine Feeder on 07-25-2021 TSH Qn 2.430 {uIU/mL} Normal 0.450-4.50 0 [facility]; [facility] Work Phone: Comment on above: Test(s) 348406-FJJ-A ; 827813-VZJ-D; 062503-Jrjgkwfhzqigw; 609906-Mdveuszgovy, Total; 488091-MUU-N (Total); 076308-Xswpc LDL-P; 921926-FGR Size; 066118-EW-QG Scorewas developed and its performance characteristics determinedby [employer]. It has not been cleared or approved by the Foodand Drug Administration.PATIENT WAS FASTINGPERFORMED BY: [employer] [place] [employer] [id number] BY: CALLIE Labcox [address] Lztuct[address] [place] [id number] Deana 07-05-2020 CNPN Telephone (CDLBME) ----- RENABRYANNA R ([id number]) 1965 F Date Time Provider Department 07/05/20 ELINA SAUNDERS (RN) [facility] During your visit today, we recorded the following information about you: Elina Saunders RN, RN 07/05/2020 2:51 PM Signed Spoke with patient regarding reminder for stress test tomorrow and given instructions. Allergies As of Date: 07/05/2020 Noted Allergy Reaction AKNE-MYCIN (ERYTHROMYCIN) 06/07/2020 14 - Other: See Comments Comments: QT interval ADHESIVE TAPE (ROSINS) 12/30/2013 14 - Other: See Comments Comments: Blisters CATS 10/17/2005 COPAXONE (GLATIRAMER ACETATE) 10/16/2014 2 - Rash DARVOCET A500 (PROPOXYPHENE N-PIPER*10/17/2005 eggs [Other] 10/17/2005 Date Reviewed: 07/05/2020 Reviewed by: Anais Swift Ma - Fully Assessed Reason for Visit: Reminder Call [4400] Prescriptions as of 07/05/2020 Sig: GRAPE SEED ORAL Take 1 tablet by mouth once d* NILOTINIB 150 MG CAPSULE TAKE 2 CAPSULES BY MOUTH EVER* TECFIDERA 240 MG CAPSULE,BELEM* TAKE ONE CAPSULE BY MOUTH TWI* CHOLECALCIFEROL (VITAMIN D3) * Take 1 capsule by mouth once * KETOCONAZOLE 2 % TOPICAL CREAM 1 APPLICATION TWICE A DAY TOP* MIRABEGRON ER 50 MG TABLET,EX* Take 50 mg by mouth once andie* REFRESH OPHTHALMIC Use 1 Drop in eyes as needed. CRANBERRY EXTRACT ORAL Take 1 capsule by mouth once * SOLIFENACIN 5 MG TABLET Take 2 tablets by mouth once * Patient taking differently: Take 5 mg by mouth once daily* ADULT PROBIOTIC ORAL Take 1 capsule by mouth once * ZYRTEC ORAL Take 1 tablet by mouth once d* Problem List As Of Date 07/05/2020 Noted Resolved ALLERGIC RHINITIS NOS [J30.9] 11/22/2005 NIPPLE DISCHARGE [N64.59] 04/10/2006 07/08/2013 UNSP ABNORMAL MAMMOGRAM [R92.8] 05/23/2006 BENIGN NEOPLASM NOS [D36.9] 06/06/2006 Unspecified essential hypertension [I10] 11/22/2006 01/19/2014 MIXED HYPERLIPIDEMIA [E78.2] 11/22/2006 Nontoxic Uninodular Goiter [E04.1] 06/10/2009 CML (Chronic Myelocytic Leukemia) [C92.10] 03/29/2010 Optic neuritis [H46.9] 12/30/2013 More... Multiple sclerosis (HCC) [G35] 12/08/2014 Scotoma involving central area [H53.419] 10/29/2015 Iron deficiency anemia due to chronic blood los*04/21/2016 10/30/2016 Iron malabsorption [K90.9] 04/21/2016 Acute superficial gastritis with hemorrhage [K2*10/19/2016 06/05/2017 Iron deficiency anemia secondary to inadequate *10/30/2016 Encounter Status:Closed by ELINA SAUNDERS on 07/05/20 [facility] URINE DONNY CULTURE-IDENTIFICA [place] ([id number])Ordered By: Bread Wrapping Machine Feeder on 06-03-2020 Bacteria identified Cx Nom (U) Final report Normal [facility] Work Phone: Comment on above: PATIENT NOT FASTINGP ERFORMED BY: [employer] [facility] Beat.noChristian [facility] [id number] Information: SRC:UC Bacteria identified Cx Nom (U) MUG Normal [facility] Work Phone: Comment on above: Mixed urogenital yenni ra1,000 Colonies/mL PATIENT NOT FASTINGP ERFORMED BY: [facility]lyChristian [facility] [id number] Information: SRC:UC Urinalysis, Office (15158)Or dered By: Briseida Garcia on 06-02-2020 Bilirubin Ql (U) Negative Normal Comprehe nsive Internal Medicine Work Phone: Bilirubin Ql (U) Negative Normal Comprehe nsive Internal Medicine; [facility] Work Phone: Glucose Test strip (U) [Mass/Vol] Negative Normal [facility] Work Phone: Glucose Test strip (U) [Mass/Vol] Negative Normal [facility]; [facility] Work Phone: Hemoglobin Ql (U) Negative Normal Compreh ensive Internal Medicine Work Phone: Hemoglobin Ql (U) Negative Normal Compreh ensive Internal Medicine; [facility] Work Phone: Ketones Ql (U) Negative Normal Comprehens mignon Internal Medicine Work Phone: Ketones Ql (U) Negative Normal Comprehens mignon [facility]; [facility] Work Phone: Leukocyte esterase Test strip Ql (U) Negative Normal [facility] Work Phone: Leukocyte esterase Test strip Ql (U) Negative Normal [facility]; [facility] Work Phone: Nitrite Ql (U) Negative Normal Comprehens mignon [facility] Work Phone: Nitrite Ql (U) Negative Normal Comprehens m[facility]; [facility] Work Phone: pH (U) 6.5 [pH] Normal [facility] Work Phone: Protein Ql (U) Negative Normal Comprehens [facility] Work Phone: Protein Ql (U) Negative Normal Comprehens mignon [facility]; [facility] Work Phone: Specific gravity (U) [Rel density] 1.015 1 Normal [facility] Work Phone: Urobilinogen (24H U) [Mass/Time] Normal Normal [facility] Work Phone: 2018 Novel Coronavirus (COVI D-19), EL ([id number])Ordered By: Bread Wrapping Machine Feeder on 01-27-20202018 Novel Coronavirus (COVID-19), EL ([id number]) Not Detected Normal [facility] Work Phone: Comment on above: Testing was performe d using the Aptima SARS-CoV-2 assay.This test was developed and its performance characteristics determinedby meets. This test has not been FDA cleared orapproved. This test has been authorized by FDA under an Emergency UseAuthorization (EUA). This test is only authorized for the duration oftime the declaration that circumstances exist justifying theauthorization of the emergency use of in vitro diagnostic tests fordetection of SARS-CoV-2 virus and/or diagnosis of COVID-19 infectionunder section 564(b)(1) of the Act, 21 U.S.C. 360bbb-3(b)(1), unlessthe authorization is terminated or revoked sooner.When diagnostic testing is negative, the possibility of a falsenegative result should be considered in the context of a patient'srecent exposures and the presence of clinical signs and symptomsconsistent with COVID-19. An individual without symptoms of COVID-19and who is not shedding SARS-CoV-2 virus would expect to have anegative (not detected) result in this assay. PERFORMED BY: =[employer] [address] [id number] 2018 Novel Coronavirus (COVID-19), [place] ([id number]) Not detected Normal [facility]; [facility] Work Phone: Comment on above: Testing was performe d using the Aptima SARS-CoV-2 assay.This test was developed and its performance characteristics determinedby meets. This test has not been FDA cleared orapproved. This test has been authorized by FDA under an Emergency UseAuthorization (EUA). This test is only authorized for the duration oftime the declaration that circumstances exist justifying theauthorization of the emergency use of in vitro diagnostic tests fordetection of SARS-CoV-2 virus and/or diagnosis of COVID-19 infectionunder section 564(b)(1) of the Act, 21 U.S.C. 360bbb-3(b)(1), unlessthe authorization is terminated or revoked sooner.When diagnostic testing is negative, the possibility of a falsenegative result should be considered in the context of a patient'srecent exposures and the presence of clinical signs and symptomsconsistent with COVID-19. An individual without symptoms of COVID-19and who is not shedding SARS-CoV-2 virus would expect to have anegative (not detected) result in this assay. PERFORMED BY: =Rajwinder Axeda [address] [facility] [place] [id number] CBC W/AUTO DIFF WBC (08509)O rdered By: Bread Wrapping Machine Feeder on 01-27-2020 Basophils (Bld) [#/Vol] 0.0 {x10E3/uL} Normal 0.0-0.2 [facility] Work Phone: Comment on above: Test(s) 868025-AIG-Q ; 984264-ZAF-L; 589791-FFV-A; 944593-Rokajmmygacec; 135727-Qzqxvrovjaj, Total; 348776-HFY-Z (Total);693748-Njpwz LDL-P; 304783-JOG Size; 743719-RE-DF Scorewas developed and its performance characteristics determinedby [employer]. It has not been cleared or approved by the Foodand Drug Administration.PATIENT WAS FASTINGPERFORMED BY: [employer] [address] [id number] BY: [employer] Zvarfa9278 [facility] [id number] Basophils (Bld) [#/Vol] 0.0 10*3/uL Normal 0.0-0.2 [facility]; [facility] Work Phone: Comment on above: Test(s) 657970-HML-E ; 820172-ZOZ-D; 184022-BTU-X; 328057-Eoiltbhxdorka; 423512-Szmfkyedntu, Total; 790774-HHA-I (Total);404886-Qqxam LDL-P; 298257-KQB Size; 410920-VH-LP Scorewas developed and its performance characteristics determinedby [employer]. It has not been cleared or approved by the Foodand Drug Administration.PATIENT WAS FASTINGPERFORMED BY: Andig[employer]og[address] [id number] BY: [employer] Cdcwlk4217 [facility] [id number] Basophils/100 WBC (Bld) 1 % Normal [facility] Work Phone: Comment on above: Test(s) 375475-IQD-C ; 205852-EXR-J; 293647-GJY-N; 724190-Yopkpjybkddjz; 304030-Nasdzvsxfuw, Total; 494841-ONA-D (Total);363157-Smyym LDL-P; 602884-KXH Size; 237933-AJ-LU Scorewas developed and its performance characteristics determinedby [employer]. It has not been cleared or approved by the Foodand Drug Administration.PATIENT WAS FASTINGPERFORMED BY: [employer] [address] [id number] BY: [employer]70 [facility] [id number] Eosinophils (Bld) [#/Vol] 0.2 {x10E3/uL} Normal 0.0-0.4 [facility] Work Phone: Comment on above: Test(s) 627700-NKI-D ; 844364-FHG-N; 817835-XEW-F; 532280-Pmqoersbtkzfi; 235178-Ctfgaqmhygl, Total; 891056-ZNR-R (Total);130969-Wcvcs LDL-P; 989238-CZJ Size; 862103-PV-OW Scorewas developed and its performance characteristics determinedby [employer]. It has not been cleared or approved by the Foodand Drug Administration.PATIENT WAS FASTINGPERFORMED BY: [employer] [address] [id number] BY: [employer] Hdzjne1776 [facility] [id number] Eosinophils (Bld) [#/Vol] 0.2 10*3/uL Normal 0.0-0.4 [facility]; [facility] Work Phone: Comment on above: Test(s) 826111-UXD-M ; 534966-DJN-O; 221042-SIH-C; 999725-Lokbheeabnbeq; 245074-Dncttyjzrty, Total; 031921-FSZ-R (Total);443627-Ddslh LDL-P; 112457-DHY Size; 260989-OD-DB Scorewas developed and its performance characteristics determinedby [employer]. It has not been cleared or approved by the Foodand Drug Administration.PATIENT WAS FASTINGPERFORMED BY: [employer] [address] [id number] BY: [employer]70 AelurosAtrium Health Pineville [id number] Eosinophils/100 WBC (Bld) 4 % Normal [facility] Work Phone: Comment on above: Test(s) 319187-CDN-H ; 878618-ZGT-H; 726726-XUH-F; 069944-Vygrfmeksqikk; 048755-Ljwhbvbeirp, Total; 909385-SCZ-R (Total);130007-Tsmsz LDL-P; 220080-PGZ Size; 842483-OC-QU Scorewas developed and its performance characteristics determinedby [employer]. It has not been cleared or approved by the FoodThirdPresence Drug Administration.PATIENT WAS FASTINGPERFORMED BY: [employer] [address] [id number] BY: [employer]6370 [facility] [id number] Erythrocyte distribution width (RBC) [Ratio] 12.5 % Normal 11.7-15.4 [facility] Work Phone: Comment on above: Test(s) 748658-ZYZ-J ; 714498-QVM-R; 930338-ODM-O; 331834-Ulwxzxtwzrwtq; 095416-Io[place], Total; 411050-FUQ-M (Total);579010-Flrty LDL-P; 309735-XPF Size; 731682-DP-OU Scorewas developed and its performance characteristics determinedby [employer]. It has not been cleared or approved by the Foodand Drug Administration.PATIENT WAS FASTINGPERFORMED BY: [employer] [address] [id number] BY: [employer]70 [facility] [id number] Hematocrit (Bld) [Volume fraction] 42.0 % Normal 34.0-46.6 [facility] Work Phone: Comment on above: Test(s) 744157-TCV-O ; 570019-UJY-X; 666132-PAM-M; 416496-Ybwdfpzwbadto; 009187-Uludnhuxeny, Total; 651486-NOC-L (Total);277832-Jknjo LDL-P; 169786-OPS Size; 469389-BD-VE Scorewas developed and its performance characteristics determinedby [employer]. It has not been cleared or approved by the Foodand Drug Administration.PATIENT WAS FASTINGPERFORMED BY: RegainGo[address] [id number] BY: Hythiam6370 [facility] [id number] Hemoglobin (Bld) [Mass/Vol] 14.1 g/dL Normal 11.1-15.9 [facility] Work Phone: Comment on above: Test(s) 459838-WIB-F ; 041246-CGQ-C; 101102-QNW-D; 038791-Vwebsrajiqqkk; 686378-Ltcsoksujag, Total; 329307-LVD-J (Total);663950-Esixy LDL-P; 593425-LXH Size; 832846-TZ-OU Scorewas developed and its performance characteristics determinedby [employer]. It has not been cleared or approved by the Foodand Drug Administration.PATIENT WAS FASTINGPERFORMED BY: [employer] [address] [id number] BY: [employer] Rpujhv1765 [facility] [id number] Immature granulocytes (Bld) [#/Vol] 0.0 {x10E3/uL} Normal 0.0-0.1 [facility] Work Phone: Comment on above: Test(s) 984106-MPL-M ; 820410-RNW-L; 376650-ALE-F; 212660-Awisuzfkykdgi; 308440-Rxwuebbupjy, Total; 653249-APZ-D (Total);237091-Guney LDL-P; 463747-WNI Size; 449693-EX-FG Scorewas developed and its performance characteristics determinedby [employer]. It has not been cleared or approved by the Foodand Drug Administration.PATIENT WAS FASTINGPERFORMED BY: [employer] [address] [id number] BY: [employer] Cddzqg3393 [place] AircuityAtrium Health Pineville [id number] Immature granulocytes (Bld) [#/Vol] 0.0 10*3/uL Normal 0.0-0.1 [facility]; [facility] Work Phone: Comment on above: Test(s) 316790-AUS-M ; 971876-YON-Z; 886728-JSI-R; 236146-Nkkszgqyyzzko; 408842-Xbswvrwaqaq, Total; 520450-XGA-G (Total);237281-Dntwr LDL-P; 441067-QXS Size; 775482-QJ-OU Scorewas developed and its performance characteristics determinedby [employer]. It has not been cleared or approved by the Foodand Drug Administration.PATIENT WAS FASTINGPERFORMED BY: [employer] [address] [id number] BY: [employer]70 [place] AircuityAtrium Health [facility]ville [id number] Immature granulocytes/100 WBC (Bld) 0 % Normal [facility] Internal Medicine Work Phone: Comment on above: Test(s) 905319-JYI-H ; 446242-ELU-Q; 466375-NJF-T; 555177-Sggefjhkoninm; 491422-Dhquobuvlkp, Total; 098460-IQY-N (Total);027208-Thktr LDL-P; 282717-KQD Size; 995845-GT-YL Scorewas developed and its performance characteristics determinedby [employer]. It has not been cleared or approved by the Foodand Drug Administration.PATIENT WAS FASTINGPERFORMED BY: [employer] [address] [id number] BY: [employer]70 [facility] [id number] Lymphocytes (Bld) [#/Vol] 1.2 {x10E3/uL} Normal 0.7-3.1 [facility] Work Phone: Comment on above: Test(s) 897551-BCA-K ; 639427-NGG-O; 314941-XNT-B; 172457-Oyzfcspvsxfge; 567892-Ecbfcsdlmjj, Total; 512768-OJH-R (Total);409352-Vcdle LDL-P; 527354-ZPZ Size; 523460-QO-FD Scorewas developed and its performance characteristics determinedby [employer]. It has not been cleared or approved by the Foodand Drug Administration.PATIENT WAS FASTINGPERFORMED BY: Andigilog[address] [id number] BY: [employer]6370 [facility] [id number] Lymphocytes (Bld) [#/Vol] 1.2 10*3/uL Normal 0.7-3.1 [facility]; [facility] Work Phone: Comment on above: Test(s) 188399-BWO-P ; 835080-UDR-K; 311354-SYM-K; 324632-Ymvztshrgaavu; 313290-Aehzizhocqk, Total; 900052-HFF-G (Total);723818-Uzqes LDL-P; 394929-FRM Size; 553480-YI-SL Scorewas developed and its performance characteristics determinedby [employer]. It has not been cleared or approved by the Foodand Drug Administration.PATIENT WAS FASTINGPERFORMED BY: [employer] [address] [id number] BY: [employer]6370 [facility] [id number] Lymphocytes/100 WBC (Bld) 25 % Normal [facility] Work Phone: Comment on above: Test(s) 401499-WBN-H ; 327052-DUN-A; 247474-OAR-B; 902380-Achfgzjdcfqce; 165120-Fhrkuscgvzr, Total; 992094-GBD-G (Total);035413-Fezki LDL-P; 269154-HLE Size; 742433-HV-KR Scorewas developed and its performance characteristics determinedby [employer]. It has not been cleared or approved by the Foodand Drug Administration.PATIENT WAS FASTINGPERFORMED BY: [employer] [address] [id number] BY: [employer] Bppfbj8799 [facility] [id number] MCH (RBC) [Entitic mass] 31.1 pg Normal 26.6-33.0 [facility] Internal Medicine Work Phone: Comment on above: Test(s) 037160-SSO-O ; 257685-QHR-Q; 850758-SJV-O; 532199-Iacvgbhonggik; 942371-Eqsappvcxcy, Total; 749549-ICC-Q (Total);800922-Jycti LDL-P; 250967-LYF Size; 820451-RO-BV Scorewas developed and its performance characteristics determinedby [employer]. It has not been cleared or approved by the FoodThirdPresence Drug Administration.PATIENT WAS FASTINGPERFORMED BY: [employer] [address] [id number] BY: [employer]70 [facility] [id number] MCHC (RBC) [Mass/Vol] 33.6 g/dL Normal 31.5-35.7 [facility] Internal Medicine Work Phone: Comment on above: Test(s) 151774-MOT-Q ; 809980-RHM-P; 962830-JBW-R; 419059-Irnpeztappwoc; 648358-Khbdpqdrlrx, Total; 620537-VZX-S (Total);188480-Vjqcw LDL-P; 119293-XBM Size; 271977-VG-OK Scorewas developed and its performance characteristics determinedby [employer]. It has not been cleared or approved by the Foodand Drug Administration.PATIENT WAS FASTINGPERFORMED BY: [employer] [address] [id number] BY: [employer]6370 [facility] [id number] MCV (RBC) [Entitic vol] 93 fL Normal 79-97 [facility] Work Phone: Comment on above: Test(s) 106239-IQJ-G ; 266906-POK-U; 948090-XXD-Q; 904465-Kggxhwnxbtulg; 071038-Adgwdppqkzr, Total; 203601-YTT-Z (Total);202993-Gfjwq LDL-P; 972286-YJO Size; 450671-MV-XC Scorewas developed and its performance characteristics determinedby [employer]. It has not been cleared or approved by the Foodand Drug Administration.PATIENT WAS FASTINGPERFORMED BY: Andigilog[address] [id number] BY: [employer] [id number] Monocytes (Bld) [#/Vol] 0.4 {x10E3/uL} Normal 0.1-0.9 [facility] Work Phone: Comment on above: Test(s) 689351-MOW-X ; 867199-WCG-Z; 267944-YTY-N; 655645-Cekqdhoapqbjh; 670210-Bsugnjnuric, Total; 849887-NCB-H (Total);697614-Jwyes LDL-P; 936248-AQJ Size; 126550-HE-VX Scorewas developed and its performance characteristics determinedby [employer]. It has not been cleared or approved by the Foodand Drug Administration.PATIENT WAS FASTINGPERFORMED BY: [employer] [address] [id number] BY: [employer]6370 [facility] [id number] Monocytes (Bld) [#/Vol] 0.4 10*3/uL Normal 0.1-0.9 [facility]; [facility] Work Phone: Comment on above: Test(s) 318742-KEB-M ; 468217-FWM-N; 045216-JZV-U; 194588-Jqpvkbirnycjm; 333336-Txssotnuxxo, Total; 672666-SQY-W (Total);622264-Omslt LDL-P; 697202-XWQ Size; 075121-XF-GE Scorewas developed and its performance characteristics determinedby [employer]. It has not been cleared or approved by the Foodand Drug Administration.PATIENT WAS FASTINGPERFORMED BY: [employer] [address] [id number] BY: [employer]70 [facility] [id number] Monocytes/100 WBC (Bld) 9 % Normal [facility] Work Phone: Comment on above: Test(s) 902182-WSJ-O ; 804730-JUV-F; 775404-LRH-H; 805254-Caqsxydxztkxu; 281175-Ixkmjnermzd, Total; 040556-LTK-W (Total);724169-Rxdhp LDL-P; 877627-GSM Size; 185897-MB-EH Scorewas developed and its performance characteristics determinedby [employer]. It has not been cleared or approved by the Foodand Drug Administration.PATIENT WAS FASTINGPERFORMED BY: [employer] [address] [id number] BY: [employer]70 [facility] [id number] Neutrophils (Bld) [#/Vol] 2.8 {x10E3/uL} Normal 1.4-7.0 [facility] Work Phone: Comment on above: Test(s) 139669-UDT-H ; 572724-ZDE-Y; 088984-JLL-D; 526501-Tneraakceygwt; 544937-Tlqvejmhjqz, Total; 414089-AYC-F (Total);888775-Vndbl LDL-P; 069399-IQY Size; 430538-XC-PE Scorewas developed and its performance characteristics determinedby [employer]. It has not been cleared or approved by the Foodand Drug Administration.PATIENT WAS FASTINGPERFORMED BY: [employer] [address] [id number] BY: [employer]70 [facility] [id number] Neutrophils (Bld) [#/Vol] 2.8 10*3/uL Normal 1.4-7.0 [facility]; [facility] Work Phone: Comment on above: Test(s) 875658-BUR-Z ; 484905-HEZ-A; 815890-QIR-U; 191449-Hsfrcgacmuviv; 971166-Lrjkoiqpwju, Total; 238866-GWB-F (Total);583171-Vdcjg LDL-P; 372948-WAY Size; 511016-QT-WR Scorewas developed and its performance characteristics determinedby [employer]. It has not been cleared or approved by the Foodand Drug Administration.PATIENT WAS FASTINGPERFORMED BY: RegainGo[address] [id number] BY: Hythiam6370 [facility] HospitalBizilyKind[facility] [id number] Neutrophils/100 WBC (Bld) 61 % Normal [facility] Work Phone: Comment on above: Test(s) 102069-XJC-I ; 588679-ZPF-P; 692138-OCV-S; 632964-Lmwvvpvuygrrs; 097334-Ufdayxicojc, Total; 227974-LCA-I (Total);715923-Copiv LDL-P; 290926-XJZ Size; 309732-UY-EO Scorewas developed and its performance characteristics determinedby [employer]. It has not been cleared or approved by the Foodand Drug Administration.PATIENT WAS FASTINGPERFORMED BY: [employer] [address] [id number] BY: [employer] Nlweyg8233 [facility] [id number] Platelets (Bld) [#/Vol] 269 {x10E3/uL} Normal 150-450 [facility] Work Phone: Comment on above: Test(s) 355872-ZTT-A ; 899215-KTH-A; 172751-SXT-Z; 109221-Hfadqvewpjjbr; 258333-Igbonctwfle, Total; 456561-QGB-Z (Total);222036-Jdhuu LDL-P; 598675-XNY Size; 073823-OD-ZS Scorewas developed and its performance characteristics determinedby [employer]. It has not been cleared or approved by the Foodand Drug Administration.PATIENT WAS FASTINGPERFORMED BY: [employer] [address] [id number] BY: [employer] Dxhwkc6971 AelurosAtrium Health Pineville [id number] Platelets (Bld) [#/Vol] 269 10*3/uL Normal 150-450 [facility]; [facility] Internal Medicine Work Phone: Comment on above: Test(s) 539805-CWO-H ; 522884-HLW-A; 952898-BKI-X; 985042-Ojjrkkqhanyqp; 403019-Fxgncdvbsbc, Total; 933422-KPE-T (Total);784954-Iaslm LDL-P; 703412-SYD Size; 496401-BT-YK Scorewas developed and its performance characteristics determinedby [employer]. It has not been cleared or approved by the Foodand Drug Administration.PATIENT WAS FASTINGPERFORMED BY: [employer] [address] [id number] BY: [employer] AircuityAtrium Health [facility] [id number] RBC (Bld) [#/Vol] 4.53 {x10E6/uL} Normal 3.77-5.28 [facility] Internal Medicine Work Phone: Comment on above: Test(s) 640032-BXS-K ; 927140-FKC-V; 932481-ESP-K; 003380-Vcspijkfhasil; 395576-Xbeukkdhzcg, Total; 157919-PHS-H (Total);965215-Mbfmk LDL-P; 898534-PFE Size; 636454-FD-BG Scorewas developed and its performance characteristics determinedby [employer]. It has not been cleared or approved by the Foodand Drug Administration.PATIENT WAS FASTINGPERFORMED BY: [employer] [address] [id number] BY: [employer]6370 [facility] [id number] RBC (Bld) [#/Vol] 4.53 10*6/uL Normal 3.77-5.28 [facility] ehensive Internal Medicine; [facility] Work Phone: Comment on above: Test(s) 973916-NJJ-X ; 266742-WTK-Z; 866741-KWG-R; 164715-Kcpgegtsfyxbi; 421723-Fkrwwrotyzd, Total; 478553-ZAF-L (Total);059681-Fjtdn LDL-P; 875365-NVA Size; 833052-RB-YX Scorewas developed and its performance characteristics determinedby [employer]. It has not been cleared or approved by the Foodand Drug Administration.PATIENT WAS FASTINGPERFORMED BY: Andigilog[address] [id number] BY: [employer]6370 [facility] [id number] WBC (Bld) [#/Vol] 4.6 {x10E3/uL} Normal 3.4-10.8 [facility] Work Phone: Comment on above: Test(s) 355852-RJK-Y ; 412616-GGD-Z; 652668-EMZ-Q; 012960-Vbzvwvdlobrpy; 812032-Luljuaxrhtc, Total; 298575-ZQQ-O (Total);554822-Kjkqw LDL-P; 614221-PKW Size; 201945-ZC-EH Scorewas developed and its performance characteristics determinedby [employer]. It has not been cleared or approved by the Foodand Drug Administration.PATIENT WAS FASTINGPERFORMED BY: [employer] [address] [id number] BY: [employer] Hqaler1414 [facility] [id number] WBC (Bld) [#/Vol] 4.6 10*3/uL Normal 3.4-10.8 [facility] Internal Medicine; [facility] Work Phone: Comment on above: Test(s) 962231-MWZ-F ; 643779-CWI-L; 698590-LWS-P; 122558-Ztnoojpbikpiv; 557321-Qxhctsxwmpq, Total; 586029-GHF-O (Total);973371-Zzsex LDL-P; 494545-JZI Size; 232475-PZ-EW Scorewas developed and its performance characteristics determinedby [employer]. It has not been cleared or approved by the Foodand Drug Administration.PATIENT WAS FASTINGPERFORMED BY: [employer] [address] [id number] BY: [employer]6370 [facility] [id number] METABOLIC PANEL, COMPREHENSI VE (48118)Ordered By: Bread Wrapping Machine Feeder on 01-27-2020 Albumin [Mass/Vol] 4.6 g/dL Normal 3.8-4.9 [facility] Internal Medicine Work Phone: Comment on above: Test(s) 270653-BJU-W ; 582093-ZNY-A; 724240-FAM-C; 231956-Rzhefmhfdkxhv; 396241-Fbqutqdtswl, Total; 011373-MNL-J (Total);031743-Lwuhg LDL-P; 877691-BWT Size; 194672-UA-RT Scorewas developed and its performance characteristics determinedby [employer]. It has not been cleared or approved by the Foodand Drug Administration.PATIENT WAS FASTINGPERFORMED BY: [employer] [address] [id number] BY: [employer] Pllrlx4434 [facility] [id number] Albumin/Globulin [Mass ratio] 1.8 {ratio} Normal 1.2-2.2 [facility] Work Phone: Comment on above: Test(s) 895521-QWD-D ; 941671-IQL-U; 847663-IZP-U; 854000-Zoirvwgavnqre; 325221-Jexnaxdeyve, Total; 241985-KGC-E (Total);293935-Fhwph LDL-P; 636372-DCP Size; 775939-IQ-LL Scorewas developed and its performance characteristics determinedby [employer]. It has not been cleared or approved by the Foodand Drug Administration.PATIENT WAS FASTINGPERFORMED BY: [employer] [id number] BY: Dream[employer] EnterprisesInspira Medical Center WoodburySyuojv5897 [facility] [id number] ALP [Catalytic activity/Vol] 56 [iU]/L Normal 39-117 [facility] Work Phone: Comment on above: Test(s) 274772-OZD-Q ; 589787-ACX-O; 142820-GTM-E; 262241-Arbddzqzkytov; 017126-Obdrxezmgyq, Total; 420957-GYN-D (Total);429259-Vzkng LDL-P; 084368-NLP Size; 054180-ZO-CF Scorewas developed and its performance characteristics determinedby [employer]. It has not been cleared or approved by the Foodand Drug Administration.PATIENT WAS FASTINGPERFORMED BY: [employer] [address] [id number] BY: [employer] Defxne3955 [facility] [id number] ALP [Catalytic activity/Vol] 56 U/L Normal 39-117 [facility]; [facility] Work Phone: Comment on above: Test(s) 184275-AGU-A ; 052842-HAT-P; 862273-TLO-Z; 305495-Uoarakdhwthay; 293242-Fjsptcsuxys, Total; 701662-JWC-P (Total);817238-Jsrxl LDL-P; 253351-QUN Size; 908668-AY-JF Scorewas developed and its performance characteristics determinedby [employer]. It has not been cleared or approved by the Foodand Drug Administration.PATIENT WAS FASTINGPERFORMED BY: [employer] [id number] BY: Dream[employer] EnterprisesInspira Medical Center WoodburyHquqtb8420 [facility] [id number] ALT [Catalytic activity/Vol] 14 [iU]/L Normal 0-32 [facility] Work Phone: Comment on above: Test(s) 953108-LTL-P ; 100290-EHL-C; 765117-KQU-N; 883157-Kmtfkxhjpotus; 181943-Momwhoplqng, Total; 303002-NSW-Y (Total);922752-Vkiha LDL-P; 064913-YZA Size; 576223-WV-FX Scorewas developed and its performance characteristics determinedby [employer]. It has not been cleared or approved by the Foodand Drug Administration.PATIENT WAS FASTINGPERFORMED BY: [employer] [id number] BY: [employer] EnterprisesKeith [place] 8314670 [facility] [id number] ALT [Catalytic activity/Vol] 14 U/L Normal 0-32 [facility]; [facility] Work Phone: Comment on above: Test(s) 790250-MOS-X ; 260194-MQN-J; 479147-REI-T; 775291-Oebiuhivvyeep; 323690-Ffmttdzbfjs, Total; 290382-NCI-E (Total);023819-Vqvqr LDL-P; 690898-BKD Size; 645448-RH-DQ Scorewas developed and its performance characteristics determinedby [employer]. It has not been cleared or approved by the Foodand Drug Administration.PATIENT WAS FASTINGPERFORMED BY: [employer] [address] [id number] BY: [employer] Najtov3230 [facility] [id number] AST [Catalytic activity/Vol] 16 [iU]/L Normal 0-40 [facility] Work Phone: Comment on above: Test(s) 918896-NBL-R ; 555114-PGC-Z; 637692-ZHS-Y; 601836-Fkgjqimphhmzd; 480380-Bftayszrrqj, Total; 065654-IMT-G (Total);725245-Kfpgl LDL-P; 838409-DED Size; 284658-YU-QC Scorewas developed and its performance characteristics determinedby [employer]. It has not been cleared or approved by the Foodand Drug Administration.PATIENT WAS FASTINGPERFORMED BY: [employer] [id number] BY: [employer]6370 [facility] [id number] AST [Catalytic activity/Vol] 16 U/L Normal 0-40 [facility]; [facility] Work Phone: Comment on above: Test(s) 045950-KLE-Y ; 115055-XOZ-D; 220535-TOM-Z; 738683-Atxpfbxmbevhe; 457088-Ngiuegtssmy, Total; 112809-ZXO-W (Total);345292-Apjdc LDL-P; 877981-RFC Size; 194987-PL-AG Scorewas developed and its performance characteristics determinedby [employer]. It has not been cleared or approved by the Foodand Drug Administration.PATIENT WAS FASTINGPERFORMED BY: [employer] [address] [id number] BY: [employer]6370 [facility] [id number] Bilirubin [Mass/Vol] 0.8 mg/dL Normal 0.0-1.2 [facility] Internal Medicine Work Phone: Comment on above: Test(s) 302472-UKD-H ; 793093-COP-Y; 116113-VZK-N; 152041-Taysapxitrswc; 447157-Bzsptfydlaj, Total; 426832-TMT-W (Total);956474-Lwcay LDL-P; 433059-EZZ Size; 133229-RB-KX Scorewas developed and its performance characteristics determinedby [employer]. It has not been cleared or approved by the Foodand Drug Administration.PATIENT WAS FASTINGPERFORMED BY: [employer] [address] [id number] BY: [employer]6370 [facility] [id number] Calcium [Mass/Vol] 9.4 mg/dL Normal 8.7-10.2 [facility] Internal Medicine Work Phone: Comment on above: Test(s) 682367-MGS-G ; 073895-HEV-E; 182815-ZDV-K; 738637-Vrczlisxjibpi; 408723-Mjukwgzirei, Total; 160708-WTQ-Z (Total);788495-Tqvjb LDL-P; 737496-UOE Size; 273992-OM-ZM Scorewas developed and its performance characteristics determinedby [employer]. It has not been cleared or approved by the Foodand Drug Administration.PATIENT WAS FASTINGPERFORMED BY: Andigilog[address] [id number] BY: [employer]70 [facility] [id number] Chloride [Moles/Vol] 101 mmol/L Normal 96-106 [facility] Internal Medicine Work Phone: Comment on above: Test(s) 661765-VTZ-Z ; 946859-YIE-U; 825647-RDT-F; 288248-Clixvwtrsvwoo; 909333-Vgrgvymsome, Total; 944187-PGR-U (Total);798422-Wnmnk LDL-P; 629238-VSB Size; 578665-GB-AI Scorewas developed and its performance characteristics determinedby [employer]. It has not been cleared or approved by the Foodand Drug Administration.PATIENT WAS FASTINGPERFORMED BY: Andigilog[address] [id number] BY: [employer]6370 [facility] [id number] CO2 [Moles/Vol] 25 mmol/L Normal 20-29 [facility] Internal Medicine Work Phone: Comment on above: Test(s) 257622-PJO-F ; 362132-AFP-M; 305846-JFY-K; 882456-Achlaqsomgoiz; 582413-Yibfhenyooz, Total; 418581-DLI-I (Total);782722-Umwlg LDL-P; 471929-KLA Size; 216955-DT-LA Scorewas developed and its performance characteristics determinedby [employer]. It has not been cleared or approved by the Foodand Drug Administration.PATIENT WAS FASTINGPERFORMED BY: Andigilog[address] [id number] BY: [employer]70 [facility] [id number] Creatinine [Mass/Vol] 0.74 mg/dL Normal 0.57-1.00 [facility] prehensive Internal Medicine Work Phone: Comment on above: Test(s) 998773-IGW-B ; 165564-VLZ-I; 508411-XJP-T; 758611-Kfjdwngcjfcgu; 068993-Xlekztjrwhk, Total; 747975-CWQ-S (Total);931934-Mfrif LDL-P; 642563-GVI Size; 570244-TO-ZF Scorewas developed and its performance characteristics determinedby [employer]. It has not been cleared or approved by the Foodand Drug Administration.PATIENT WAS FASTINGPERFORMED BY: [employer] [address] [id number] BY: [employer]6370 [facility] [id number] GFR/1.73 sq M predicted among blacks CKD-EPI (S/P/Bld) [Vol rate/Area] 108 mL/min/1.73 Normal [facility] Internal Medicine Work Phone: Comment on above: Test(s) 940596-TNT-P ; 898445-RJQ-M; 876906-NWI-U; 913690-Aowzckzaysfgz; 709970-Dhertkuhmkr, Total; 140735-NMT-T (Total);256527-Mdtqp LDL-P; 222505-XPN Size; 279603-GO-EF Scorewas developed and its performance characteristics determinedby [employer]. It has not been cleared or approved by the Foodand Drug Administration.PATIENT WAS FASTINGPERFORMED BY: [employer] [address] [id number] BY: [employer]6370 [facility] [id number] GFR/1.73 sq M predicted among non-blacks CKD-EPI (S/P/Bld) [Vol rate/Area] 93 mL/min/1.73 Normal [facility] Work Phone: Comment on above: Test(s) 856544-WEJ-O ; 351386-CKK-X; 074965-GPM-T; 928273-Cqybzbbpoeecw; 309968-Klmihgioqfv, Total; 577153-BMK-P (Total);436131-Ilfha LDL-P; 235647-ALE Size; 504077-UZ-JE Scorewas developed and its performance characteristics determinedby [employer]. It has not been cleared or approved by the Foodand Drug Administration.PATIENT WAS FASTINGPERFORMED BY: [employer] [address] [id number] BY: [employer] Rjydux5491 [facility] [id number] Globulin (S) [Mass/Vol] 2.5 g/dL Normal 1.5-4.5 [facility] Internal Medicine Work Phone: Comment on above: Test(s) 382390-TAT-O ; 768842-VDF-W; 758444-ZZK-L; 717271-Lbxfodcpwnpdh; 843959-Fhvjuvjmzhu, Total; 782005-LTJ-O (Total);885445-Crotp LDL-P; 382278-LSN Size; 695639-ZP-BP Scorewas developed and its performance characteristics determinedby [employer]. It has not been cleared or approved by the Foodand Drug Administration.PATIENT WAS FASTINGPERFORMED BY: [employer] [address] [id number] BY: [employer]6370 [facility] [id number] Glucose [Mass/Vol] 100 mg/dL Abnormal 65-99 [facility] Internal Medicine Work Phone: Comment on above: Test(s) 733460-TDH-Z ; 629192-WKF-S; 139805-PJD-W; 913670-Pmtfigfxkpixm; 841889-Tmeuaqevwfx, Total; 023651-LHW-P (Total);130420-Kjdpv LDL-P; 725036-QJL Size; 416054-GV-JE Scorewas developed and its performance characteristics determinedby [employer]. It has not been cleared or approved by the Foodand Drug Administration.PATIENT WAS FASTINGPERFORMED BY: [employer] [address] [id number] BY: ArticleAlley Mbqgqs6[address] AircuityAtrium Health Pineville [id number] Potassium [Moles/Vol] 4.2 mmol/L Normal 3.5-5.2 [facility] Internal Medicine Work Phone: Comment on above: Test(s) 652893-YSD-V ; 375498-CBT-Q; 248042-XXU-Z; 540644-Rzulkpyqmgdfh; 375933-Bccloufzajp, Total; 210803-XXG-Z (Total);943485-Rgawj LDL-P; 217871-ALE Size; 307106-RU-AM Scorewas developed and its performance characteristics determinedby [employer]. It has not been cleared or approved by the Foodand Drug Administration.PATIENT WAS FASTINGPERFORMED BY: [employer] [address] [id number] BY: [employer]6[address] LinksyKindred Hospital [facility] [id number] Protein [Mass/Vol] 7.1 g/dL Normal 6.0-8.5 [facility] Internal Medicine Work Phone: Comment on above: Test(s) 601660-ETC-D ; 047931-GMU-Z; 887678-SPY-Z; 471153-Dujobncwvyxis; 696591-Uzmxludopvg, Total; 244344-ECK-J (Total);658099-Tvpkm LDL-P; 662519-XAJ Size; 362154-QU-UY Scorewas developed and its performance characteristics determinedby [employer]. It has not been cleared or approved by the Foodand Drug Administration.PATIENT WAS FASTINGPERFORMED BY: [employer] [id number] BY: ArticleAlley Ntesqd2897 [facility] [id number] Sodium [Moles/Vol] 140 mmol/L Normal 134-144 [facility] Internal Medicine Work Phone: Comment on above: Test(s) 780976-NDO-C ; 323363-QPS-I; 315710-RFG-M; 709906-Unqkchcojplhy; 902358-Cnelonnvcdg, Total; 372145-JTD-A (Total);204884-Mftew LDL-P; 358033-ZJR Size; 831888-XX-YY Scorewas developed and its performance characteristics determinedby [employer]. It has not been cleared or approved by the Foodand Drug Administration.PATIENT WAS FASTINGPERFORMED BY: [employer] [address] [id number] BY: [employer]6370 [facility] [id number] Urea nitrogen [Mass/Vol] 10 mg/dL Normal 6-24 [facility] Work Phone: Comment on above: Test(s) 715436-NMJ-K ; 474509-HMA-Y; 686592-GXN-C; 556927-Pdtaipcngdriy; 999276-Osjaezemkzd, Total; 256234-AIH-V (Total);445431-Dgirh LDL-P; 671388-PJZ Size; 526101-PT-WK Scorewas developed and its performance characteristics determinedby [employer]. It has not been cleared or approved by the Foodand Drug Administration.PATIENT WAS FASTINGPERFORMED BY: [employer] [address] [id number] BY: [employer]6370 [facility] [id number] Urea nitrogen/Creatinine [Mass ratio] 14 mg/mg Normal 9- [facility] Work Phone: Comment on above: Test(s) 336405-KNR-R ; 009471-XLF-U; 975949-KAY-U; 405895-Qvdeyjsmctpoc; 638081-Jwcwzelboxr, Total; 878543-ZNQ-Z (Total);090987-Bkgsv LDL-P; 968275-ZQL Size; 550531-FB-YV Scorewas developed and its performance characteristics determinedby [employer]. It has not been cleared or approved by the Foodand Drug Administration.PATIENT WAS FASTINGPERFORMED BY: [employer] [address] [id number] BY: [employer] LinksyKindred Hospital - [facility] [id number] MICROALBUMINOrdered By: [employer] Sales Consultant on 01-27-2020 Albumin DL <= 20 mg/L (U) [Mass/Vol] 3.8 ug/mL Normal [facility] Work Phone: Comment on above: Test(s) 657571-ZPJ-V ; 818931-LST-K; 658741-XXH-G; 885817-Woerjslzkfgwo; 686541-Sgliuxugslx, Total; 285834-LDO-Y (Total);167116-Expow LDL-P; 779699-WWC Size; 496088-BP-FC Scorewas developed and its performance characteristics determinedby [employer]. It has not been cleared or approved by the Foodand Drug Administration.PATIENT WAS FASTINGPERFORMED BY: [employer] [address] [id number] BY: [employer] AircuityAtrium Health Pineville [id number] Albumin/Creatinine (U) [Mass ratio] 11 {mg/g_creat} Normal 0-29 [facility] Work Phone: Comment on above: Normal: 0 - 29 Moder ately increased: 30 - 300 Severely increased: >300 Please note reference interval change Test(s) 433136-NCM-C ; 270586-NHY-Q; 033955-HHH-W; 400110-Xdickihahmeav; 088527-Jnoksewocrw, Total; 116169-YNI-W (Total);003562-Obkaq LDL-P; 446084-UKU Size; 280241-LH-FF Scorewas developed and its performance characteristics determinedby [employer]. It has not been cleared or approved by the Foodand Drug Administration.PATIENT WAS FASTINGPERFORMED BY: [employer] [address] [id number] BY: [employer]6370 [facility] [id number] Creatinine (U) [Mass/Vol] 35.0 mg/dL Normal [facility] Work Phone: Comment on above: Test(s) 397276-BFT-E ; 268740-LSS-K; 194751-VGR-U; 772124-Kqoufigqnfffx; 912658-Ccssfqpefcg, Total; 106352-GEU-V (Total);694685-Rueiu LDL-P; 385305-LMD Size; 626135-ZI-JY Scorewas developed and its performance characteristics determinedby [employer]. It has not been cleared or approved by the Foodand Drug Administration.PATIENT WAS FASTINGPERFORMED BY: [employer] [address] [id number] BY: [employer] Tbctoe0572 [facility] [id number] NMR Profile (01553)Ordered B y: Bread Wrapping Machine Feeder on 01-27-2020 Cholesterol [Mass/Vol] 275 mg/dL Abnormal 100-199 [facility] Work Phone: Comment on above: Test(s) 379609-LRB-X ; 126655-VNX-X; 834628-HPA-F; 993143-Wflsdwbdmfymn; 135202-Ahtjxdkdmbj, Total; 616992-PEW-R (Total);447836-Vwlum LDL-P; 547492-QVZ Size; 201898-GP-FO Scorewas developed and its performance characteristics determinedby [employer]. It has not been cleared or approved by the Foodand Drug Administration.PATIENT WAS FASTINGPERFORMED BY: [employer] [address] [id number] BY: [employer]6370 [facility] [id number] Cholesterol in HDL [Mass/Vol] 87 mg/dL Normal [facility] Work Phone: Comment on above: Test(s) 091973-VSQ-Y ; 548309-OZT-V; 765166-YFU-H; 741596-Ltcbmylirbxew; 685756-Egpyhnurvvb, Total; 625278-OUG-D (Total);602218-Pxpez LDL-P; 050950-QHW Size; 651378-OW-SZ Scorewas developed and its performance characteristics determinedby [employer]. It has not been cleared or approved by the Foodand Drug Administration.PATIENT WAS FASTINGPERFORMED BY: [employer] Cbmqqrreua6628 [facility] [id number] BY: [employer] Ytfeom8517 [facility] [id number] Lipoprotein.alpha [Moles/Vol] 43.9 umol/L Normal [facility] Work Phone: Comment on above: Test(s) 483196-WRM-V ; 557756-QXR-L; 909265-YNX-X; 009717-Bjlcezrsuncoq; 559580-Kxiczjlpowy, Total; 962131-YYF-U (Total);379143-Guymi LDL-P; 732989-OSX Size; 809943-OU-JR Scorewas developed and its performance characteristics determinedby [employer]. It has not been cleared or approved by the Foodand Drug Administration.PATIENT WAS FASTINGPERFORMED BY: [employer] [address] [id number] BY: Bo[employer]6370 [facility] [id number] Lipoprotein.beta.subp article [Entitic length] 21.2 nm Normal [facility] Work Phone: Comment on above: INTERPRETATIVE INFORMATION PARTICLE CONCENTRATION AND SIZE <--Lower CVD Risk Higher CVD Risk--> LDL AND HDL PARTICLES Percentile in Reference Population HDL-P (total) High 75th 50th 25th Low >34.9 34.9 30.5 26.7 <26.7 . Small LDL-P Low 25th 50th 75th High <117 117 527 839 >839 . LDL Size <-Large (Pattern A)-> <-Small (Pattern B)-> 23.0 20.6 20.5 19.0 Small LDL-P and LDL Size are associated with CVD risk, but not afterLDL-P is taken into account. Test(s) 757027-YTN-Q ; 900467-XXP-P; 791871-RNX-G; 054587-Ikrlmcyqtmnhz; 692053-Tkhvkxyrblg, Total; 836699-PRM-U (Total);134800-Tkwaf LDL-P; 838004-JIX Size; 282274-JM-QL Scorewas developed and its performance characteristics determinedby [employer]. It has not been cleared or approved by the Foodand Drug Administration.PATIENT WAS FASTINGPERFORMED BY: Andig[employer] [id number] BY: [facility] [id number] Lipoprotein.beta.subp article [Moles/Vol] 1529 nmol/L Abnormal Comprehensiv e Internal Medicine Work Phone: Comment on above: Low < 1000 Moderate 1000 - 1299 Borderline-High 1300 - 1599 High 1600 - 2000 Very High > 2000 Test(s) 132860-GWD-I ; 364224-FPQ-C; 930763-AXF-R; 114606-Apuljllghtkng; 212604-Pqtnqmgsqpk, Total; 261609-MIB-R (Total);759481-Xewbm LDL-P; 840914-LEX Size; 313796-CW-SF Scorewas developed and its performance characteristics determinedby [employer]. It has not been cleared or approved by the Foodand Drug Administration.PATIENT WAS FASTINGPERFORMED BY: [employer] [address] [id number] BY: [employer] AircuityAtrium Health Pineville [id number] Lipoprotein.beta.subp article.small [Moles/Vol] <90 Normal [facility] Work Phone: Comment on above: Test(s) 989025-SBM-S ; 212665-AGR-T; 783595-OZN-P; 205834-Napydokqnnkgx; 208036-Ifusqjrfdyc, Total; 704719-SNU-L (Total);823892-Kofyd LDL-P; 922669-RVN Size; 428365-FB-QI Scorewas developed and its performance characteristics determinedby [employer]. It has not been cleared or approved by the Foodand Drug Administration.PATIENT WAS FASTINGPERFORMED BY: [employer] [address] [id number] BY: Dream[employer] EnterprisesInspira Medical Center WoodburyQgbxqs3858 [facility] [id number] Triglyceride [Mass/Vol] 86 mg/dL Normal 0-149 [facility] Internal Medicine Work Phone: Comment on above: Test(s) 826233-YHP-J ; 226767-RYA-P; 168694-ENH-M; 148708-Uokjnoapsifwc; 548182-Tsopvjiptbf, Total; 230427-ZHP-S (Total);329150-Xvang LDL-P; 402873-RQB Size; 641517-HW-VB Scorewas developed and its performance characteristics determinedby [employer]. It has not been cleared or approved by the Foodand Drug Administration.PATIENT WAS FASTINGPERFORMED BY: [employer] [address] [id number] BY: [employer] Nkucbb8792 [facility] [id number] NMR Profile (10103) 171 mg/dL Abnormal 0-99 [facility] Internal Medicine Work Phone: Comment on above: . Optimal < 100 Abov e optimal 100 - 129 Borderline 130 - 159 High 160 - 189 Very high > 189 .LDL-C is inaccurate if patient is non-fasting. Test(s) 199041-AEO-A ; 420048-TLG-Z; 181931-PPX-U; 445697-Mdjhljujckmha; 876230-Mdhnqzfhogv, Total; 957095-LCW-J (Total);841549-Mablc LDL-P; 702744-SLK Size; 643170-DS-DF Scorewas developed and its performance characteristics determinedby [employer]. It has not been cleared or approved by the Foodand Drug Administration.PATIENT WAS FASTINGPERFORMED BY: [employer] [address] [id number] BY: DreamSaver EnterprisesInspira Medical Center WoodburyIgawro7894 [facility] [id number] NMR Profile (41862) 87 mg/dL Normal Compr ehensive Internal Medicine; [facility] Work Phone: NMR Profile (29368) 86 mg/dL Normal 0-149 Compr ehensive Internal Medicine; [facility] Work Phone: NMR Profile (54066) 275 mg/dL Abnormal 100-199 [facility] ehensive Internal Medicine; [facility] Work Phone: TSH (83998)Ordered By: [employer] Sales Consultant on 01-27-2020 TSH Qn 3.250 {uIU/mL} Normal 0.450-4.50 0 [facility] Work Phone: Comment on above: Test(s) 098464-CWX-Z ; 452717-WJX-Y; 662707-LNK-K; 531511-Mjtkhxrbsjzbn; 365467-Jxjbppkrjgg, Total; 714113-YOO-S (Total);578486-Njbse LDL-P; 397113-PDG Size; 234434-YH-TT Scorewas developed and its performance characteristics determinedby [employer]. It has not been cleared or approved by the Foodand Drug Administration.PATIENT WAS FASTINGPERFORMED BY: DND ConsultingHelen Ville [address] [facility] [id number] BY: [employer] Dumwow9267 [facility] [id number] VITAMIN B-12 (CYANOCOBALAMIN ) (32148)Ordered By: [employer] W[employer] Machine Feeder on 03-12-2019 Cobalamin (Vitamin B12) [Mass/Vol] 997 pg/mL Normal 232-1245 [facility] Work Phone: Comment on above: PATIENT NOT FASTINGP ERFORMED BY: [employer] Zycfyr7132 [facility] [id number] KATHRYN (ANTINUCLEAR ANTIBODY) ( 83475)Ordered By: Bread Wra[employer] Machine Feeder on 10-24-2017 Nuclear Ab Ql (S) Negative Normal Compreh ensive Internal Medicine Work Phone: Comment on above: PATIENT NOT FASTINGP ERFORMED BY: LabCoInspira Medical Center WoodburyHxqemn6810 [address] [facility]in [place] [id number] Nuclear Ab Ql (S) Negative Normal Compreh ensive Internal Medicine; [facility] Work Phone: Comment on above: PATIENT NOT FASTINGP ERFORMED BY: LabCoInspira Medical Center WoodburyDcrdvp4471 [facility] [id number] C-REACTIVE PROTEIN (20253)Or dered By: Bread Wrapping Machine Feeder on 10-24-2017 CRP mass conc 5.5 mg/L Abnormal 0.0-4.9 Comprehensi ve Internal Medicine Work Phone: Comment on above: PATIENT NOT FASTINGP ERFORMED BY: [facility]6370 [facility] [id number] CBC W/AUTO DIFF WBC (09018)O rdered By: Bread Wra[employer] Machine Feeder on 10-24-2017 Basophils (Bld) [#/Vol] 0.0 {x10E3/uL} Normal 0.0-0.2 [facility] Work Phone: Comment on above: PATIENT NOT FASTINGP ERFORMED BY: [facility]6370 [facility] [id number] Basophils (Bld) [#/Vol] 0.0 10*3/uL Normal 0.0-0.2 [facility]; [facility] Work Phone: Comment on above: PATIENT NOT FASTINGP ERFORMED BY: [facility]6370 [facility] [id number] Basophils Auto #/vol (Bld) 0.0 {x10E3/uL} Normal 0.0-0.2 [facility] Work Phone: Basophils/100 WBC (Bld) 0 % Normal [facility] Work Phone: Comment on above: PATIENT NOT FASTINGP ERFORMED BY: LabCoInspira Medical Center WoodburyXhvsdp3589 [address] [facility] [id number] Basophils/100 WBC Auto (Bld) 0 % Normal [facility] Work Phone: Eosinophils (Bld) [#/Vol] 0.3 {x10E3/uL} Normal 0.0-0.4 [facility] Work Phone: Comment on above: PATIENT NOT FASTINGP ERFORMED BY: CALLIE Galvan6[address] [facility] [id number] Eosinophils (Bld) [#/Vol] 0.3 10*3/uL Normal 0.0-0.4 [facility]; [facility] Work Phone: Comment on above: PATIENT NOT FASTINGP ERFORMED BY: CALLIE PatrickCojuan pablo ContrerasMurvgf2923 [facility] [id number] Eosinophils Auto #/vol (Bld) 0.3 {x10E3/uL} Normal 0.0-0.4 [facility] Work Phone: Eosinophils/100 WBC (Bld) 3 % Normal [facility] Work Phone: Comment on above: PATIENT NOT FASTINGP ERFORMED BY: CALLIE Contreraslin6370 [facility] [id number] Eosinophils/100 WBC Auto (Bld) 3 % Normal [facility] Work Phone: Erythrocyte distribution width (RBC) [Ratio] 13.2 % Normal 12.3-15.4 [facility] Work Phone: Comment on above: PATIENT NOT FASTINGP ERFORMED BY: CALLIE Contreraslin6370 [facility] [id number] Erythrocyte distribution width Auto Ratio (RBC) 13.2 % Normal 12.3-15.4 [facility] Work Phone: Hematocrit (Bld) [Volume fraction] 41.0 % Normal 34.0-46.6 [facility] Work Phone: Comment on above: PATIENT NOT FASTINGP ERFORMED BY: CALLIE [facility] Dnvcut9379 [facility] [id number] Hematocrit Auto Volume Fraction (Bld) 41.0 % Normal 34.0-46.6 Comprehens [facility] Internal Medicine Work Phone: Hemoglobin mass conc (Bld) 14.2 g/dL Normal 11.1-15.9 [facility] Work Phone: Comment on above: PATIENT NOT FASTINGP ERFORMED BY: [facility] Ffqema7278 [address] RoadDublin [place] [id number] Immature granulocytes #/vol (Bld) 0.0 {x10E3/uL} Normal 0.0-0.1 [facility] Work Phone: Comment on above: PATIENT NOT FASTINGP ERFORMED BY: [facility] Ashpbr8112 [address] RoadDublin [place] [id number] Immature granulocytes (Bld) [#/Vol] 0.0 10*3/uL Normal 0.0-0.1 [facility]; [facility] Work Phone: Comment on above: PATIENT NOT FASTINGP ERFORMED BY: [facility] Zjepbs0088 [address] RoadDublin [place] [id number] Immature granulocytes/100 WBC (Bld) 0 % Normal [facility] Work Phone: Comment on above: PATIENT NOT FASTINGP ERFORMED BY: [facility] Ggzclq3364 [address] RoadDuin [place] [id number] Lymphocytes (Bld) [#/Vol] 1.2 {x10E3/uL} Normal 0.7-3.1 [facility] Work Phone: Comment on above: PATIENT NOT FASTINGP ERFORMED BY: [facility] Tqzpze1841 [address] Roadblin [place] [id number] Lymphocytes (Bld) [#/Vol] 1.2 10*3/uL Normal 0.7-3.1 [facility]; [facility] Work Phone: Comment on above: PATIENT NOT FASTINGP ERFORMED BY: [facility] Vfcqju8249 [address] RoadDublin [place] [id number] Lymphocytes Auto #/vol (Bld) 1.2 {x10E3/uL} Normal 0.7-3.1 [facility] Work Phone: Lymphocytes/100 WBC (Bld) 12 % Normal [facility] Work Phone: Comment on above: PATIENT NOT FASTINGP ERFORMED BY: CALLIE [facility]6370 [facility] [id number] Lymphocytes/100 WBC Auto (Bld) 12 % Normal [facility] Work Phone: MCH (RBC) [Entitic mass] 31.3 pg Normal 26.6-33.0 [facility] Internal Medicine Work Phone: Comment on above: PATIENT NOT FASTINGP ERFORMED BY: CALLIE [facility]6370 [facility] [id number] MCH Auto Entitic mass (RBC) 31.3 pg Normal 26.6-33.0 [facility] Internal Medicine Work Phone: MCHC (RBC) [Mass/Vol] 34.6 g/dL Normal 31.5-35.7 [facility] Internal Medicine Work Phone: Comment on above: PATIENT NOT FASTINGP ERFORMED BY: CALLIE [place] 2817470 [facility] [id number] MCHC Auto mass conc (RBC) 34.6 g/dL Normal 31.5-35.7 [facility] Internal Medicine Work Phone: MCV (RBC) [Entitic vol] 91 fL Normal 79-97 [facility] Internal Medicine Work Phone: Comment on above: PATIENT NOT FASTINGP ERFORMED BY: CALLIE [facility]6370 [facility] [id number] MCV Auto Entitic volume (RBC) 91 fL Normal 79-97 [facility] Internal Medicine Work Phone: Monocytes (Bld) [#/Vol] 0.5 {x10E3/uL} Normal 0.1-0.9 [facility] Internal Medicine Work Phone: Comment on above: PATIENT NOT FASTINGP ERFORMED BY: LabJorge Ville 1552870 [facility] [id number] Monocytes (Bld) [#/Vol] 0.5 10*3/uL Normal 0.1-0.9 [facility]; [facility] Work Phone: Comment on above: PATIENT NOT FASTINGP ERFORMED BY: LabJorge Ville 1552870 [facility] [id number] Monocytes Auto #/vol (Bld) 0.5 {x10E3/uL} Normal 0.1-0.9 [facility] Work Phone: Monocytes/100 WBC (Bld) 5 % Normal [facility] Work Phone: Comment on above: PATIENT NOT FASTINGP ERFORMED BY: CALLIE Galvan6370 [facility] [id number] Monocytes/100 WBC Auto (Bld) 5 % Normal [facility] Work Phone: Neutrophils (Bld) [#/Vol] 7.8 {x10E3/uL} Abnormal 1.4-7.0 [facility] Work Phone: Comment on above: PATIENT NOT FASTINGP ERFORMED BY: CALLIE Galvan6370 [facility] [id number] Neutrophils (Bld) [#/Vol] 7.8 10*3/uL Abnormal 1.4-7.0 [facility]; [facility] Work Phone: Comment on above: PATIENT NOT FASTINGP ERFORMED BY: CALLIE Galvan6370 [facility] [id number] Neutrophils Auto #/vol (Bld) 7.8 {x10E3/uL} Abnormal 1.4-7.0 [facility] Work Phone: Neutrophils/100 WBC (Bld) 80 % Normal [facility] Work Phone: Comment on above: PATIENT NOT FASTINGP ERFORMED BY: CALLIE [facility] Maukqu7961 [facility] [id number] Neutrophils/100 WBC Auto (Bld) 80 % Normal [facility] Work Phone: Platelets (Bld) [#/Vol] 268 {x10E3/uL} Normal 150-379 [facility] Work Phone: Comment on above: PATIENT NOT FASTINGP ERFORMED BY: CALLIE LabJennifer ContrerasKnloxx6980 [facility] [id number] Platelets (Bld) [#/Vol] 268 10*3/uL Normal 150-379 [facility]; [facility] Work Phone: Comment on above: PATIENT NOT FASTINGP ERFORMED BY: CALLIE Galvan6370 [address] [facility]in [place] [id number] Platelets Auto #/vol (Bld) 268 {x10E3/uL} Normal 150-379 [facility] Work Phone: RBC (Bld) [#/Vol] 4.53 {x10E6/uL} Normal 3.77-5.28 [facility] Internal Medicine Work Phone: Comment on above: PATIENT NOT FASTINGP ERFORMED BY: CALLIE Hassan Vlrdpc1194 [facility] [id number] RBC (Bld) [#/Vol] 4.53 10*6/uL Normal 3.77-5.28 [facility] Internal Medicine; [facility] Work Phone: Comment on above: PATIENT NOT FASTINGP ERFORMED BY: CALLIE Hassan Uekmcw2004 [facility] [id number] RBC Auto #/vol (Bld) 4.53 {x10E6/uL} Normal 3.77-5.28 [facility] Work Phone: WBC (Bld) [#/Vol] 9.7 {x10E3/uL} Normal 3.4-10.8 [facility] Internal Medicine Work Phone: Comment on above: PATIENT NOT FASTINGP ERFORMED BY: CALLIE [facility] Dfimoo6121 [facility] [id number] WBC (Bld) [#/Vol] 9.7 10*3/uL Normal 3.4-10.8 [facility] Internal Medicine; [facility] Work Phone: Comment on above: PATIENT NOT FASTINGP ERFORMED BY: CALLIE [facility] Oezrtz2689 [address] [facility] [id number] WBC Auto #/vol (Bld) 9.7 {x10E3/uL} Normal 3.4-10.8 [facility] Work Phone: Folate (98606)Ordered By: [employer] Sales Consultant on 10-24-2017 Folate mass conc 5.5 ng/mL Normal Comprehe nsive Internal Medicine Work Phone: Comment on above: A serum folate jin ntration of less than 3.1 ng/mL isconsidered to represent clinical deficiency. PATIENT NOT FASTINGP ERFORMED BY: CB [facility] Fdghvs8457 [address] RoadDublin [place] [id number] METABOLIC PANEL, COMPREHENSI VE (01194)Ordered By: Bread Wrapping Machine Feeder on 10-24-2017 Albumin mass conc 4.7 g/dL Normal 3.5-5.5 Compreh ensive Internal Medicine Work Phone: Comment on above: PATIENT NOT FASTINGP ERFORMED BY: CB [facility] Nvtems0334 [address] RoadDublin [place] [id number] Albumin/Globulin mass ratio 1.9 {ratio} Normal 1.2-2.2 [facility] Work Phone: Comment on above: PATIENT NOT FASTINGP ERFORMED BY: CB [facility] Zagfcv8586 [address] RoadDublin [place] [id number] ALP [Catalytic activity/Vol] 53 U/L Normal 39-117 [facility]; [facility] Work Phone: Comment on above: PATIENT NOT FASTINGP ERFORMED BY: CB [facility] Mnmvbj9806 [address] RoadDublin [place] [id number] ALP enzyme act/vol 53 [iU]/L Normal 39-117 Compre [facility] Internal Medicine Work Phone: Comment on above: PATIENT NOT FASTINGP ERFORMED BY: CB [facility] Sgcmmi0807 [address] RoadDublin [place] [id number] ALT [Catalytic activity/Vol] 16 U/L Normal 0-32 [facility]; [facility] Work Phone: Comment on above: PATIENT NOT FASTINGP ERFORMED BY: CB [facility] Dalhnx4982 [address] RoadDublin [place] [id number] ALT enzyme act/vol 16 [iU]/L Normal 0-32 Compre [facility] Internal Medicine Work Phone: Comment on above: PATIENT NOT FASTINGP ERFORMED BY: CALLIE [facility] Usncqx2256 [address] RoadDublin [place] [id number] AST [Catalytic activity/Vol] 23 U/L Normal 0-40 [facility]; [facility] Work Phone: Comment on above: PATIENT NOT FASTINGP ERFORMED BY: CB [facility] Ckzpzc6160 [address]Dublin [place] [id number] AST enzyme act/vol 23 [iU]/L Normal 0-40 Compre hensive Internal Medicine Work Phone: Comment on above: PATIENT NOT FASTINGP ERFORMED BY: CALLIE [facility] Noidrj6162 [address]Dublin [place] [id number] Bilirubin mass conc 1.1 mg/dL Normal 0.0-1.2 Compr ehensive Internal Medicine Work Phone: Comment on above: PATIENT NOT FASTINGP ERFORMED BY: CALLIE [facility] Cmslfx5667 [address] RoadDublin [place] [id number] Calcium mass conc 9.5 mg/dL Normal 8.7-10.2 Compreh ensive Internal Medicine Work Phone: Comment on above: PATIENT NOT FASTINGP ERFORMED BY: CALLIE [facility] Emuywz6902 [address] RoadDublin [place] [id number] Chloride molar conc 102 mmol/L Normal 96-106 Compr ensive Internal Medicine Work Phone: Comment on above: PATIENT NOT FASTINGP ERFORMED BY: CALLIE [facility] Wldaie7920 [address] RoadDublin [place] [id number] CO2 molar conc 23 mmol/L Normal 18-29 Comprehens mignon Internal Medicine Work Phone: Comment on above: PATIENT NOT FASTINGP ERFORMED BY: CB [facility] Ionptw0647 [address]Dublin [place] [id number] Creatinine mass conc 0.75 mg/dL Normal 0.57-1.00 Comp rehensive Internal Medicine Work Phone: Comment on above: PATIENT NOT FASTINGP ERFORMED BY: CALLIE [facility] Ifvmss6059 [address] RoadDublin [place] [id number] GFR/1.73 sq M predicted among blacks CKD-EPI vol rate/area (S/P/Bld) 108 mL/min/1.73 Normal Comprehensiv e Internal Medicine Work Phone: Comment on above: PATIENT NOT FASTINGP ERFORMED BY: CB [facility] Toklwm5884 [address] RoadDublin [place] [id number] GFR/1.73 sq M predicted among non-blacks CKD-EPI vol rate/area (S/P/Bld) 94 mL/min/1.73 Normal [facility] Work Phone: Comment on above: PATIENT NOT FASTINGP ERFORMED BY: CB [facility] Zobjqf5926 [address] Roadblin [place] [id number] Globulin (S) [Mass/Vol] 2.5 g/dL Normal 1.5-4.5 [facility] Work Phone: Comment on above: PATIENT NOT FASTINGP ERFORMED BY: CB [facility] Kxbogc0243 [address] RoadCritical Access Hospitalin [place] [id number] Globulin Calculated mass conc (S) 2.5 g/dL Normal 1.5-4.5 [facility] Work Phone: Glucose mass conc 94 mg/dL Normal 65-99 Compreh ensive Internal Medicine Work Phone: Comment on above: PATIENT NOT FASTINGP ERFORMED BY: CB [facility] Bnkfdh5444 [address] [facility]in [place] [id number] Potassium molar conc 4.7 mmol/L Normal 3.5-5.2 Comp rehensive Internal Medicine Work Phone: Comment on above: PATIENT NOT FASTINGP ERFORMED BY: CB [facility] Ltqjyk7496 [address] [facility] Hospitalblin [place] [id number] Protein mass conc 7.2 g/dL Normal 6.0-8.5 Compreh ensive Internal Medicine Work Phone: Comment on above: PATIENT NOT FASTINGP ERFORMED BY: CB [facility] Mboczy5414 [address] [facility] Hospitalblin [place] [id number] Sodium molar conc 141 mmol/L Normal 134-144 Compreh ensive Internal Medicine Work Phone: Comment on above: PATIENT NOT FASTINGP ERFORMED BY: CALLIE [facility] Ldobhf2945 [address] RoadDublin [place] [id number] Urea nitrogen mass conc 13 mg/dL Normal 6-24 [facility] Work Phone: Comment on above: PATIENT NOT FASTINGP ERFORMED BY: CALLIE [facility] Hwshsv2464 [address] RoadDublin [place] [id number] Urea nitrogen/Creatinine mass ratio 17 mg/mg Normal 9-23 [facility] Work Phone: Comment on above: PATIENT NOT FASTINGP ERFORMED BY: CALLIE [facility] Btnsyd1117 [address] RoadDublin [place] [id number] RHEUMATOID FACTOR-QUANT (115 97)Ordered By: Bread Wrapping Machine Feeder on 10-24-2017 Rheumatoid factor Qn [IU]/mL Normal 0.0-13.9 Comp [facility] Work Phone: Comment on above: PATIENT NOT FASTINGP ERFORMED BY: CALLIE [facility] Kfxmeg5113 [address] RoadDublin [place] [id number] Rheumatoid factor Qn [IU]/mL Normal 0.0-13.9 Comp [facility]; [facility] Work Phone: Comment on above: PATIENT NOT FASTINGP ERFORMED BY: CALLIE [facility] Zhpzqp4314 [address] RoadDublin [place] [id number] SED RATE ERYTHROCYTE ([id number]) Ordered By: Bread Wrapping Machine Feeder on 10-24-2017 ESR Velocity (Bld) 12 mm/h Normal 0-32 [facility] Internal Medicine Work Phone: Comment on above: PATIENT NOT FASTINGP ERFORMED BY: CALLIE [facility] Mjcgvg4736 [address] RoadDublin [place] [id number] TSH (85214)Ordered By: [employer] Sales Consultant on 10-24-2017 Thyrotropin Qn 1.800 {uIU/mL} Normal 0.450-4.50 0 [facility] Work Phone: Comment on above: PATIENT NOT FASTINGP ERFORMED BY: CALLIE [facility] Drceyk3056 [address] RoadDublin [place] [id number] VITAMIN B-12 (CYANOCOBALAMIN ) (21613)Ordered By: Bread Wrapping Machine Feeder on 10-24-2017 Cobalamin (Vitamin B12) mass conc 515 pg/mL Normal 232-1245 [facility] Work Phone: Comment on above: PATIENT NOT FASTINGP ERFORMED BY: CALLIE [facility] Dgozqw6584 [address] [place] [id number] CBC-Complete Blood Cnt No Di ffOrdered By: Bread Wrapping Machine Feeder on 02-23-2017 Erythrocyte distribution width Auto Ratio (RBC) 13.4 % Normal 11.6-14.6 [facility] Work Phone: Hematocrit Auto Volume Fraction (Bld) 41.9 % Normal 37-47 Comprehens mignon Internal Medicine Work Phone: Hemoglobin mass conc (Bld) 13.6 g/dL Normal 12.0-15.0 [facility] Internal Medicine Work Phone: MCH Auto Entitic mass (RBC) 31.2 pg Normal 27.0-32.0 [facility] Internal Medicine Work Phone: MCHC Auto mass conc (RBC) 32.5 {g/gl} Normal 32-36 [facility] Work Phone: MCV Auto Entitic volume (RBC) 96.1 fL Normal 81-99 [facility] Work Phone: Platelet mean volume Auto Entitic volume (Bld) 9.7 fL Normal 6.2-12.0 [facility] Work Phone: Platelets Auto #/vol (Bld) 280 10*3/uL Normal 150-450 [facility] Work Phone: RBC Auto #/vol (Bld) 4.36 {M/mm3} Normal 4.2-5.4 Co m[facility] Work Phone: WBC Auto #/vol (Bld) 4.7 10*3/uL Normal 4.4-11.0 Com prehensive [facility] Work Phone: CBC-Complete Blood Cnt No Diff 45.9 fL Abnormal 35.1-43.9 [facility] Work Phone: Comprehensive Metabolic Prof ilOrdered By: Bread Wrapping Machine Feeder on 02-23-2017 Comprehensive metabolic 2000 panel 22.1 {RATIO} Abnormal 10-20 Comprehensi ve [facility] Work Phone: Comprehensive metabolic 2000 panel 8.8 mg/dL Normal 8.5-10.1 Comprehensi ve [facility] Work Phone: Comprehensive metabolic 2000 panel 145 mmol/L Normal 136-145 Comprehensi ve [facility] Work Phone: Comprehensive metabolic 2000 panel 50 U/L Normal 45-117 Comprehensi ve [facility] Work Phone: Comprehensive metabolic 2000 panel 23 U/L Normal 12-78 Comprehensi [facility] Work Phone: Comprehensive metabolic 2000 panel 4.4 mmol/L Normal 3.5-5.1 Comprehensi [facility] Work Phone: Comprehensive metabolic 2000 panel 0.60 mg/dL Normal 0.20-1.00 Comprehensi ve [facility] Work Phone: Comprehensive metabolic 1999 panel 7.1 g/dL Normal 6.4-8.2 Comprehensi ve [facility] Work Phone: Comprehensive metabolic 2000 panel 9 1 Normal 5-15 Comprehensi ve [facility] Work Phone: Comprehensive metabolic 2000 panel 109 mmol/L Abnormal 98-107 Comprehensi ve [facility] Work Phone: Comprehensive metabolic 2000 panel 118 mL/min Normal Comprehensi ve [facility] Work Phone: Comment on above: GFR Calc Comprehensive metabolic 1999 panel 98 mL/min Normal Comprehensi ve [facility] Work Phone: Comment on above: Non- GFR Calc [facility] 1999 panel 17 U/L Normal 15-37 Comprehensi ve [facility] Work Phone: Comprehensive metabolic 2000 panel 3.8 g/dL Normal 3.4-5.0 Comprehensi ve [facility] Work Phone: Comprehensive metabolic 2000 panel 3.3 g/dL Normal 2.3-3.5 Comprehensi ve [facility] Work Phone: Comprehensive metabolic 2000 panel 27.0 mmol/L Normal 21.0-32.0 Comprehensi ve [facility] Work Phone: Comprehensive metabolic 2000 panel 0.68 mg/dL Normal 0.55-1.02 Comprehensi ve [facility] Work Phone: Comment on above: The validity of the calculated GFR AND GFRAA in patients over70 years has not been determined. Clinical correlation isessential. Comprehensive [facility] 2000 panel 1.2 {RATIO} Normal 0.9-2.4 Compre[facility]si [facility] Work Phone: Comprehensive metabolic 2000 panel 15 mg/dL Normal 7-18 Comprehensi ve [facility] Work Phone: Comprehensive metabolic 2000 panel 91 mg/dL Normal 70-110 Comprehensi ve [facility] Work Phone: FerritinOrdered By: System Oleksandr frost on 02-23-2017 Ferritin mass conc 61 ng/mL Normal 8-252 Compre hensive [facility] Work Phone: Free L5Wkuafoi By: System Valencia desai on 02-23-2017 T3 free mass conc 2.2 pg/mL Normal 2.18-3.98 Compreh ensive [facility] Work Phone: IronOrdered By: System Manag er on 02-23-2017 Iron mass conc 37 ug/dL Abnormal 50-170 Comprehens [facility] Work Phone: Iron Binding Capacity,TotalO rdered By: Bread Wrapping Machine Feeder on 02-23-2017 Iron binding capacity mass conc 313 ug/dL Normal 250-450 [facility] Work Phone: Lipid ProfileOrdered By: Syaustin tem Energy Sales Consultant on 02-23-2017 Cholesterol in HDL mass conc 79 mg/dL Normal [facility] Work Phone: Comment on above: The drugs N-Acetylcy steine and Metamizole may falsely deressthis assay. Reference Range HDL <40 mg/dL Low HDL Cholesterol HDL >or= 60 mg/dL High HDL Cholesterol Cholesterol in LDL mass conc 137 mg/dL Abnormal 0-130 [facility] Work Phone: Cholesterol mass conc 230 mg/dL Abnormal Com prehensive [facility] Work Phone: Comment on above: <200 mg/dL Desirable 200-240 mg/dL Borderline >240 mg/dL High Risk Triglyceride mass conc 70 mg/dL Normal [facility] Work Phone: Comment on above: The drugs N-Acetylcy steine and Metamizole may falsely deressthis assay.Serum Triglycerides Reference Interval Normal <150 mg/dL Borderline high 150 - 199 mg/dL High 200 - 499 mg/dL Very High > or = 500 mg/dL Lipid Profile 14 mg/dL Normal 5-40 Comprehensi ve [facility] Work Phone: MicroalbOrdered By: Adam frost on 02-23-2017 Creatinine mass conc 56.1 {mg/g_CRE} Abnormal [facility] Work Phone: Microalb 21.40 mg/dL Normal [facility] Work Phone: Microalb 12.0 mg/L Normal [facility] Work Phone: T4 Free DirectOrdered By: [email or web address] [employer] Sales Consultant on 02-23-2017 T4 free mass conc 1.01 ng/dL Normal 0.76-1.46 Compreh ensive [facility] Work Phone: Thyroid Stim Hormone (TSH)Or dered By: Bread Wrapping Machine Feeder on 02-23-2017 Thyrotropin Qn 1.82 {uIU/mL} Normal 0.358-3.74 Compreh ensive [facility] Work Phone: Urinalysis, Routine (Dipstic k)Ordered By: Bread Wrapping Machine Feeder on 02-23-2017 Urinalysis, Routine (Dipstick) Normal Normal [facility] Work Phone: Urinalysis, Routine (Dipstick) Negative Normal [facility] Work Phone: Urinalysis, Routine (Dipstick) Clear Normal [facility] Work Phone: Urinalysis, Routine (Dipstick) 1.005 1 Normal 1.002-1.03 0 [facility] Work Phone: Urinalysis, Routine (Dipstick) 7.0 1 Normal 5.0 - 8.0 [facility] Work Phone: Urinalysis, Routine (Dipstick) Straw Normal [facility] Work Phone: Rapid Flu (86860 x 2)Ordered By: Makayla Guillen on 05-17-2016 FLUAV Ag IA Ql (Throat) Negative Normal [facility] Work Phone: FLUAV Ag IA Ql (Throat) Negative Normal [facility]; [facility] Work Phone: Microscopic ExaminationOrder ed By: Bread Wrapping Machine Feeder on 12-03-2015 Bacteria LM.HPF #/area (Urine sed) None seen Normal [facility] Work Phone: Epithelial cells LM.HPF #/area (Urine sed) None seen Normal 0 - 10 [facility] Work Phone: RBC LM.HPF #/area (Urine sed) 0-2 Normal 0 - 2 [facility] Work Phone: WBC LM.HPF #/area (Urine sed) 0-5 Normal 0 - 5 [facility] Work Phone: URINALYSIS, W/ MICRO ([id number]) Ordered By: Bread Wrapping Machine Feeder on 12-03-2015 Appearance Nom (U) Clear Normal Compre hensive [facility] Work Phone: Comment on above: PATIENT NOT FASTINGP ERFORMED BY: [employer] [facility] [id number] Information: [id number] Bilirubin Ql (U) Negative Normal Comprehe nsive [facility] Medicine Work Phone: Comment on above: PATIENT NOT FASTINGP ERFORMED BY: AvanSci Biolin6370 [facility] [id number] Information: [id number] Bilirubin Ql (U) Negative Normal Comprehe nsive [facility] Medicine; [facility] Work Phone: Comment on above: PATIENT NOT FASTINGP ERFORMED BY: [employer]70 [facility] [id number] Information: [id number] Color Nom (U) Yellow Normal Comprehensi ve [facility] Work Phone: Comment on above: PATIENT NOT FASTINGP ERFORMED BY: CALLIE [facility] Crcppl0138 [address] RoadDublin [place] [id number] Information: [id number] Glucose Ql (U) Negative Normal Comprehens [facility] Work Phone: Comment on above: PATIENT NOT FASTINGP ERFORMED BY: CALLIE [facility] Frvwax1753 [address] RoadDublin [place] [id number] Information: [id number] Glucose Ql (U) Negative Normal Comprehens [facility]; [facility] Work Phone: Comment on above: PATIENT NOT FASTINGP ERFORMED BY: CALLIE [facility] Qwdjpv0577 [address] RoadDublin [place] [id number] Information: [id number] Hemoglobin Ql (U) Negative Normal Compreh ensive [facility] Work Phone: Comment on above: PATIENT NOT FASTINGP ERFORMED BY: CALLIE [facility] Bbnehj8480 [address] RoadDublin [place] [id number] Information: [id number] Hemoglobin Ql (U) Negative Normal Compreh ensive [facility]; [facility] Work Phone: Comment on above: PATIENT NOT FASTINGP ERFORMED BY: CALLIE [facility] Scvqwg2168 [address] RoadDublin [place] [id number] Information: [id number] Hemoglobin Test strip Ql (U) Negative Normal [facility] Work Phone: Ketones Ql (U) Negative Normal Comprehens [facility] Work Phone: Comment on above: PATIENT NOT FASTINGP ERFORMED BY: CB [facility] Fdnsty7010 [address] RoadDublin [place] [id number] Information: [id number] Ketones Ql (U) Negative Normal Comprehens [facility]; [facility] Work Phone: Comment on above: PATIENT NOT FASTINGP ERFORMED BY: CALLIE [facility] Dvweng3934 [address] RoadDublin [place] [id number] Information: [id number] Leukocyte esterase Test strip Ql (U) Negative Normal [facility] Work Phone: Comment on above: PATIENT NOT FASTINGP ERFORMED BY: CALLIE PatrickCo Jpqsrx80[address] [facility]in [place] [id number] Information: [id number] Leukocyte esterase Test strip Ql (U) Negative Normal [facility]; [facility] Work Phone: Comment on above: PATIENT NOT FASTINGP ERFORMED BY: [facility] Rtmpjt9821 [address] [facility] [id number] Information: [id number] Microscopic observation LM Nom (Urine sed) MICRON Normal [facility] Work Phone: Comment on above: Microscopic follows if indicated. PATIENT NOT FASTINGP ERFORMED BY: CALLIE PatrickCo Pksmxl5[address] [facility] [id number] Information: [id number] Microscopic observation LM Nom (Urine sed) See below: Normal [facility] Work Phone: Comment on above: Microscopic was ney cated and was performed. PATIENT NOT FASTINGP ERFORMED BY: CALLIE HassanInspira Medical Center WoodburyNumsyd6[address] [facility] [id number] Information: [id number] Nitrite Ql (U) Negative Normal Comprehens [facility]; [facility] Work Phone: Comment on above: PATIENT NOT FASTINGP ERFORMED BY: CALLIE [facility] Psevev75[address] [facility] [id number] Information: [id number] pH (U) 8.0 [pH] Abnormal 5.0-7.5 [facility] Work Phone: Comment on above: PATIENT NOT FASTINGP ERFORMED BY: [facility] Yknteb7253 [address] [facility] [id number] Information: [id number] pH Test strip (U) 8.0 [pH] Abnormal 5.0-7.5 Compreh ensive [facility] Medicine Work Phone: Protein Ql (U) Negative Normal Comprehens [facility] Work Phone: Comment on above: PATIENT NOT FASTINGP ERFORMED BY: [facility] Nxygrg8803 [facility] [id number] Information: [id number] Protein Ql (U) Negative Normal Comprehens [facility]; [facility] Work Phone: Comment on above: PATIENT NOT FASTINGP ERFORMED BY: CALLIE Galvan6[address] [facility] [id number] Information: [id number] Protein Test strip Ql (U) Negative Normal [facility] Work Phone: Urobilinogen (U) [Mass/Vol] 0.2 mg/dL Normal 0.2-1.0 [facility]; [facility] Work Phone: Comment on above: PATIENT NOT FASTINGP ERFORMED BY: CALLIE Hassan Euwghk[address] AircuityAtrium Health Pineville [id number] Information: [id number] Urobilinogen Test strip mass conc (U) 0.2 mg/dL Normal 0.2-1.0 Comprehensiv e Internal Medicine Work Phone: Comment on above: PATIENT NOT FASTINGP ERFORMED BY: CALLIE [facility] Vtpaja9677 [facility] [id number] Information: [id number] URINE DONNY CULTURE-IDENTIFICA [place] ([id number])Ordered By: Bread Wrapping Machine Feeder on 12-03-2015 Bacteria identified Cx Nom (U) BETAGB Abnormal [facility] Work Phone: Comment on above: Beta hemolytic Strep tococcus, group B3,000 Colonies/mLPenicillin and ampicillin are drugs of choice for treatment ofbeta-hemolytic streptococcal infections. Susceptibility testing ofpenicillins and other beta-lactam agents approved by the FDA fortreatment of beta-hemolytic streptococcal infections need not beperformed routinely because nonsusceptible isolates are extremelyrare in any beta-hemolytic streptococcus and have not been reportedfor Streptococcus pyogenes (group A). (CLSI 2011)Mixed urogenital flora1,000 Colonies/mL PATIENT NOT FASTINGP ERFORMED BY: CALLIE [facility] Atblqh2844 [facility] [id number] Bacteria identified Cx Nom (U) Final report Abnormal [facility] Work Phone: Comment on above: PATIENT NOT FASTINGP ERFORMED BY: CALLIE DND ConsultingJennifer ContrerasJlsevy6775 [facility] [id number] Urinalysis, Office ([id number])Or dered By: Makayla Guillen on 12-03-2015 Glucose Test strip (U) [Mass/Vol] Negative Normal [facility]; [facility] Work Phone: Glucose Test strip mass conc (U) Negative Normal [facility] Work Phone: Hemoglobin Ql (U) Hemolyzed Trace Normal Co mprehensive [facility] Work Phone: Hemoglobin Test strip Ql (U) Hemolyzed Trace Normal [facility] Work Phone: Leukocyte esterase Test strip Ql (U) Trace Normal [facility] Work Phone: Nitrite Ql (U) Negative Normal Comprehens [facility] Work Phone: Comment on above: PATIENT NOT FASTINGP ERFORMED BY: CALLIE PatrickFilm Freshjuan pablo ContrerasGsttrg0184 [facility] [id number] Information: [id number] Nitrite Test strip Ql (U) Negative Normal [facility] Work Phone: pH (U) 8.5 [pH] Normal [facility] Work Phone: pH Test strip (U) 8.5 [pH] Normal Compreh ensive [facility] Medicine Work Phone: Specific gravity Relative Density (U) 1.015 1 Normal 1.005-1.03 0 [facility] Work Phone: Comment on above: PATIENT NOT FASTINGP ERFORMED BY: CALLIE Contreraslin6370 [facility] [id number] Information: [id number] Urobilinogen mass/time (24H U) Normal Normal [facility] Work Phone: KATHRYN (ANTINUCLEAR ANTIBODY) ( [id number])Ordered By: Bread Wrapping Machine Feeder on 11-01-2015 Nuclear Ab Ql (S) Negative Normal Compreh ensive [facility] Work Phone: Comment on above: PATIENT NOT FASTINGP ERFORMED BY: CALLIE Contreraslin6370 [facility] [id number] Nuclear Ab Ql (S) Negative Normal Compreh ensive [facility] Medicine; [facility] Work Phone: Comment on above: PATIENT NOT FASTINGP ERFORMED BY: CALLIE CelinaNicole Gxhvhf3328 [facility] [id number] C-REACTIVE PROTEIN ([id number])Or dered By: Bread Wrapping Machine Feeder on 11-01-2015 CRP mass conc 4.5 mg/L Normal 0.0-4.9 Comprehensi ve Internal Medicine Work Phone: Comment on above: PATIENT NOT FASTINGP ERFORMED BY: CALLIE Hsasan Qoqhrj6632 [facility] [id number] Microscopic ExaminationOrder ed By: Bread Wrapping Machine Feeder on 11-01-2015 Bacteria LM.HPF #/area (Urine sed) None seen Normal [facility] Work Phone: Epithelial cells LM.HPF #/area (Urine sed) 0-10 Normal 0 - 10 [facility] Work Phone: RBC LM.HPF #/area (Urine sed) 0-2 Normal 0 - 2 [facility] Work Phone: WBC LM.HPF #/area (Urine sed) 0-5 Normal 0 - 5 [facility] Work Phone: PROLACTIN ([id number])Ordered By: Bread Wrapping Machine Feeder on 11-01-2015 Prolactin mass conc 31.9 ng/mL Abnormal 4.8-23.3 Compr ehensive Internal Medicine Work Phone: Comment on above: PATIENT NOT FASTINGP ERFORMED BY: CALLIE DND ConsultingUp Health System6370 [facility] [id number] Information: [id number] RHEUMATOID FACTOR-QUANT (064 31)Ordered By: Bread Wrapping Machine Feeder on 11-01-2015 Rheumatoid factor Qn 9.8 {IU/mL} Normal 0.0-13.9 [facility] prehensive Internal Medicine Work Phone: Comment on above: PATIENT NOT FASTINGP ERFORMED BY: CALLIE [facility] Wstyjm1111 [facility] [id number] Rheumatoid factor Qn 9.8 [IU]/mL Normal 0.0-13.9 [facility] prehensive Internal Medicine; [facility] Work Phone: Comment on above: PATIENT NOT FASTINGP ERFORMED BY: CALLIE CelinaJennifer ContrerasGhtpcu9315 [address] RoadDublin [place] [id number] SED RATE ERYTHROCYTE ([id number]) Ordered By: Bread Wrapping Machine Feeder on 11-01-2015 ESR Velocity (Bld) 5 mm/h Normal 0-32 [facility] Work Phone: Comment on above: PATIENT NOT FASTINGP ERFORMED BY: CALLIE [facility] Itixvp8438 [address] RoadDublin [place] [id number] URINALYSIS ([id number])Ordered By : Bread Wrapping Machine Feeder on 11-01-2015 Appearance Nom (U) Clear Normal Compre [facility] Internal Medicine Work Phone: Comment on above: PATIENT NOT FASTINGP ERFORMED BY: CALLIE LabCojuan pablo ContrerasZwlcuw8704 [address] RoadCritical Access Hospitalin [place] [id number] Information: [id number] Bilirubin Ql (U) Negative Normal Comprehe nsive Internal Medicine Work Phone: Comment on above: PATIENT NOT FASTINGP ERFORMED BY: CALLIE LabCojuan pablo ContrerasZjnisl8672 [address] RoadDublin [place] [id number] Information: [id number] Bilirubin Ql (U) Negative Normal Comprehe nsive Internal Medicine; [facility] Work Phone: Comment on above: PATIENT NOT FASTINGP ERFORMED BY: CALLIE [facility] Sravbc3774 [address] RoadDublin [place] [id number] Information: [id number] Color Nom (U) Yellow Normal Comprehensi ve Internal Medicine Work Phone: Comment on above: PATIENT NOT FASTINGP ERFORMED BY: CALLIE [facility] Krzpgp0995 [address] RoadDublin [place] [id number] Information: [id number] Glucose Ql (U) Negative Normal Comprehens [facility] Work Phone: Comment on above: PATIENT NOT FASTINGP ERFORMED BY: CALLIE [facility] Uoaozp0342 [address] RoadDublin [place] [id number] Information: [id number] Glucose Ql (U) Negative Normal Comprehens [facility]; [facility] Work Phone: Comment on above: PATIENT NOT FASTINGP ERFORMED BY: CALLIE Odalis Galvan6[address] [facility] [id number] Information: [id number] Hemoglobin Ql (U) Negative Normal Compreh ensive Internal Medicine Work Phone: Comment on above: PATIENT NOT FASTINGP ERFORMED BY: CALLIE CelinaNicole Kwwjaq2315 [facility] [id number] Information: [id number] Hemoglobin Ql (U) Negative Normal Compreh ensive Internal Medicine; [facility] Work Phone: Comment on above: PATIENT NOT FASTINGP ERFORMED BY: CALLIE Contreraslin6370 [facility] [id number] Information: [id number] Hemoglobin Test strip Ql (U) Negative Normal [facility] Work Phone: Ketones Ql (U) Negative Normal Comprehens [facility] Work Phone: Comment on above: PATIENT NOT FASTINGP ERFORMED BY: CALLIE Contreraslin6370 [facility] [id number] Information: [id number] Ketones Ql (U) Negative Normal Comprehens [facility]; [facility] Work Phone: Comment on above: PATIENT NOT FASTINGP ERFORMED BY: CALLIE Contreraslin6370 [facility] [id number] Information: [id number] Leukocyte esterase Test strip Ql (U) Trace Abnormal [facility] Work Phone: Comment on above: PATIENT NOT FASTINGP ERFORMED BY: CALLIE CelinaJennifer ContrerasCyhgor8126 [facility] [id number] Information: [id number] Microscopic observation LM Nom (Urine sed) See below: Normal [facility] Work Phone: Comment on above: Microscopic was ney cated and was performed. PATIENT NOT FASTINGP ERFORMED BY: CALLIE PatrickCo Psbigi4901 [address] RoadDuin [place] [id number] Information: [id number] Nitrite Ql (U) Negative Normal Comprehens [facility] Work Phone: Comment on above: PATIENT NOT FASTINGP ERFORMED BY: CALLIE Odalis Elemit9953 [address] RoadDuin [place] [id number] Information: [id number] Nitrite Ql (U) Negative Normal Comprehens [facility]; [facility] Work Phone: Comment on above: PATIENT NOT FASTINGP ERFORMED BY: CALLIE [facility]inaFulton State Hospital Mnpevs4103 [address] RoadAtrium Health Pineville [id number] Information: [id number] Nitrite Test strip Ql (U) Negative Normal [facility] Work Phone: pH (U) 7.5 [pH] Normal 5.0-7.5 [facility] Work Phone: Comment on above: PATIENT NOT FASTINGP ERFORMED BY: CALLIE Maegan Edfptj9471 [address] RoadAtrium Health Pineville [id number] Information: [id number] pH Test strip (U) 7.5 [pH] Normal 5.0-7.5 Compreh ensive Internal Medicine Work Phone: Protein Ql (U) Negative Normal Comprehens mignon [facility] Work Phone: Comment on above: PATIENT NOT FASTINGP ERFORMED BY: CALLIE [facility]inaFulton State Hospital Xhqodf[address] [facility] [id number] Information: [id number] Protein Ql (U) Negative Normal Comprehens [facility]; [facility] Work Phone: Comment on above: PATIENT NOT FASTINGP ERFORMED BY: CALLIE Maegan Wumbrv9803 [address] [facility]in [place] [id number] Information: [id number] Protein Test strip Ql (U) Negative Normal [facility] Work Phone: Specific gravity Relative Density (U) 1.010 1 Normal 1.005-1.03 0 [facility] Work Phone: Comment on above: PATIENT NOT FASTINGP ERFORMED BY: CALLIE [facility] Gllxdf5878 [address] Roadblin [place] [id number] Information: [id number] Urobilinogen (U) [Mass/Vol] 0.2 mg/dL Normal 0.2-1.0 [facility]; [facility] Work Phone: Comment on above: PATIENT NOT FASTINGP ERFORMED BY: CB [facility] Erecfm5713 [address] RoadDublin [place] [id number] Information: [id number] Urobilinogen Test strip mass conc (U) 0.2 mg/dL Normal 0.2-1.0 Comprehensiv e Internal Medicine Work Phone: Comment on above: PATIENT NOT FASTINGP ERFORMED BY: CALLIE [facility] Ajpcag6568 [address] RoadDublin [place] [id number] Information: [id number] URINE DONNY CULTURE-IDENTIFICA [place] ([id number])Ordered By: Bread Wrapping Machine Feeder on 11-01-2015 Bacteria identified Cx Nom (U) Final report Abnormal [facility] Work Phone: Comment on above: PATIENT NOT FASTINGP ERFORMED BY: CB [facility] Pimesk1988 [address]blin [place] [id number] Bacteria identified Cx Nom (U) Escherichia coli Abnormal [facility] Work Phone: Comment on above: Greater than 100,000 colony forming units per mL PATIENT NOT FASTINGP ERFORMED BY: CB [facility] Fjdubt5073 [address] Roadblin [place] [id number] Other Antibiotic [facility] prehensive Internal Medicine Work Phone: Comment on above: S = Susceptible; I = Intermediate; R = Resistant P = Positive; N = Negative MICS are expressed in micrograms per mL Antibiotic RSLT#1 RSLT#2 RSLT#3 RSLT#4Amoxicillin/Clavulanic Acid IAmpicillin RCefazolin RCefepime SCeftriaxone SCefuroxime SCephalothin RCiprofloxacin SErtapenem SGentamicin SImipenem SLevofloxacin SNitrofurantoin SPiperacillin RTetracycline STobramycin STrimethoprim/Sulfa R PATIENT NOT FASTINGP ERFORMED BY: [facility] Sxobdu5893 Flex AlarconAt[facility] Health [facility] [id number] CBC W/Diff, AutomatedOrdered By: Bread Wrapping Machine Feeder on 10-26-2015 Basophils/100 WBC Auto (Bld) 0.4 % Normal 0-1 [facility] Work Phone: Eosinophils/100 WBC Auto (Bld) 1.8 % Normal 0-5 [facility] Work Phone: Erythrocyte distribution width Auto Ratio (RBC) 14.3 % Normal 11.6-14.6 [facility] Internal Medicine Work Phone: Hematocrit Auto Volume Fraction (Bld) 38.3 % Normal 37-47 Comprehens [facility] Internal Medicine Work Phone: Hemoglobin mass conc (Bld) 12.1 g/dL Normal 12.0-15.0 [facility] Internal Medicine Work Phone: Lymphocytes/100 WBC Auto (Bld) 21.5 % Normal 19-41 [facility] Work Phone: MCH Auto Entitic mass (RBC) 26.5 pg Abnormal 27.0-32.0 [facility] Work Phone: MCHC Auto mass conc (RBC) 31.6 {g/gl} Abnormal 32-36 [facility] Work Phone: MCV Auto Entitic volume (RBC) 83.8 fL Normal 81-99 [facility] Work Phone: Monocytes/100 WBC Auto (Bld) 10.8 % Abnormal 0-10 [facility] Work Phone: Neutrophils/100 WBC Auto (Bld) 65.2 % Normal 47-70 [facility] Internal Medicine Work Phone: Platelet mean volume Auto Entitic volume (Bld) 9.1 fL Normal 6.2-12.0 [facility] Internal Medicine Work Phone: Platelets Auto #/vol (Bld) 262 10*3/uL Normal 150-450 [facility] Work Phone: RBC Auto #/vol (Bld) 4.57 {M/mm3} Normal 4.2-5.4 [facility] Work Phone: WBC Auto #/vol (Bld) 7.2 10*3/uL Normal 4.4-11.0 [facility] prehensive Internal Medicine Work Phone: CBC W/Diff, Automated 4.7 {X10_3/uL} Normal 2.0-7.7 [facility] Work Phone: CBC W/Diff, Automated 43.6 fL Normal 35.1-43.9 [facility]hens[facility] Internal Medicine Work Phone: CBC W/Diff, Automated 1.54 {X10_3/ul} Normal 0.83-4.51 [facility] Work Phone: CBC W/Diff, Automated 0.300 % Normal 0.0-0.9 [facility] prehensive Internal Medicine Work Phone: Comment on above: IG% - Immature Granu locytes (promyelocytes, myelocytes andmetamyelocytes) > 1% indicates that a LEFT SHIFT is Present. [facility] Metabolic Prof ilOrdered By: Bread Wrapping Machine Feeder on 10-26-2015 Comprehensive metabolic 2000 panel 1.1 {RATIO} Normal 0.9-2.4 Comprehensi ve Internal Medicine Work Phone: Comprehensive metabolic 2000 panel 86 mg/dL Normal 70-110 [facility] Work Phone: Comprehensive metabolic 2000 panel 14 mg/dL Normal 7-18 Compre[facility]si ve [facility] Medicine Work Phone: Comprehensive metabolic 2000 panel 0.61 mg/dL Normal 0.55-1.20 Compre[facility]si ve Internal Medicine Work Phone: Comment on above: The validity of the calculated GFR AND GFRAA in patients over70 years has not been determined. Clinical correlation isessential. Comprehensive metabolic 2000 panel 111 mL/min Normal Comprehensi ve Internal Medicine Work Phone: Comment on above: Non- GFR Calc Comprehensive metabolic 2000 panel 141 mmol/L Normal 136-145 [facility]si [facility] Medicine Work Phone: Comprehensive metabolic 2000 panel 134 mL/min Normal Comprehensi ve Internal Medicine Work Phone: Comment on above: GFR Calc Comprehensive metabolic 2000 panel 22.9 {RATIO} Abnormal 10-20 [facility] ve Internal Medicine Work Phone: Comprehensive metabolic 2000 panel 7 1 Normal 5-15 Compre[facility]si ve Internal Medicine Work Phone: Comprehensive metabolic 2000 panel 7.0 g/dL Normal 6.4-8.2 [facility]pre[facility]si ve [facility] Medicine Work Phone: Comprehensive metabolic 2000 panel 26.0 mmol/L Normal 21.0-32.0 [facility] Work Phone: Comprehensive metabolic 2000 panel 3.6 g/dL Normal 3.4-5.0 [facility] Work Phone: Comprehensive metabolic 2000 panel 108 mmol/L Abnormal 98-107 Compre[facility] ve [facility] Work Phone: Comprehensive metabolic 2000 panel 3.4 g/dL Normal 2.3-3.5 [facility] ve [facility] Work Phone: Comprehensive metabolic 2000 panel 3.9 mmol/L Normal 3.5-5.1 [facility] Work Phone: Comprehensive metabolic 2000 panel 0.90 mg/dL Normal 0.20-1.00 Compre[facility]si ve [facility] Medicine Work Phone: Comprehensive metabolic 2000 panel 23 U/L Normal 12-78 [facility] Work Phone: Comprehensive metabolic 2000 panel 8.3 mg/dL Abnormal 8.5-10.1 [facility] Work Phone: Comprehensive metabolic 2000 panel 18 U/L Normal 15-37 [facility] ve [facility] Work Phone: Comprehensive metabolic 2000 panel 46 U/L Abnormal 50-136 Compre[facility] ve [facility] Medicine Work Phone: Lipid ProfileOrdered By: Chloe tem Energy Sales Consultant on 10-26-2015 Cholesterol in HDL mass conc 71 mg/dL Normal [facility] Work Phone: Comment on above: Reference Range HDL <40 mg/dL Low HDL Cholesterol HDL >or= 60 mg/dL High HDL Cholesterol Cholesterol in LDL mass conc 131 mg/dL Abnormal 0-130 [facility] Work Phone: Cholesterol mass conc 217 mg/dL Abnormal Com prehensive Internal Medicine Work Phone: Comment on above: <200 mg/dL Desirable 200-240 mg/dL Borderline >240 mg/dL High Risk Triglyceride mass conc 74 mg/dL Normal [facility] Work Phone: Comment on above: Serum Triglycerides Reference Interval Normal <150 mg/dL Borderline high 150 - 199 mg/dL High 200 - 499 mg/dL Very High > or = 500 mg/dL Lipid Profile 15 mg/dL Normal 5-40 Comprehensi ve Internal Medicine Work Phone: Thyroid Stim Hormone (TSH)Or dered By: Bread Wrapping Machine Feeder on 10-26-2015 Thyrotropin Qn 2.98 {uIU/mL} Normal 0.358-3.74 Compreh ensive Internal Medicine Work Phone: Urinalysis, Routine (Dipstic k)Ordered By: Bread Wrapping Machine Feeder on 10-26-2015 Urinalysis, Routine (Dipstick) Negative Normal [facility] Work Phone: Urinalysis, Routine (Dipstick) Normal Normal [facility] Work Phone: Urinalysis, Routine (Dipstick) 6.5 1 Normal 5.0 - 8.0 [facility] Work Phone: Urinalysis, Routine (Dipstick) 1.015 1 Normal 1.002-1.03 0 [facility] Work Phone: Urinalysis, Routine (Dipstick) 100 mg/dL Abnormal [facility] Work Phone: Urinalysis, Routine (Dipstick) Clear Normal [facility] Work Phone: Urinalysis, Routine (Dipstick) Yellow Normal [facility] Work Phone: Urinalysis, Routine (Dipstick) 25 /ul Abnormal [facility] Work Phone: Vitamin D,25 HydroxyOrdered By: Bread Wrapping Machine Feeder on 10-26-2015 Vitamin D,25 Hydroxy 91.8 ng/mL Normal Comp rehensive Internal Medicine Work Phone: Comment on above: Vitamin D 25(OH) Sta tus Range Deficiency <20 ng/mL (50nmol/L) Insuffciency 20 - 30 ng/mL (50 - 75 nmol/L) Sufficiency 30 - 100 ng/mL (75 - 250 nmol/L) Toxicity >100 ng/mL (>250 nmol/L); ADDENDA: non-emergent till apt Rapid Strep Test, Office ([id number])Ordered By: Lily Handley on 08-18-2015 S. pyogenes Ag EIA Ql (Throat) Negative Normal [facility]; [facility] Work Phone: S. pyogenes Ag IA Ql (Unsp spec) Negative Normal [facility] Work Phone: URINE DONNY CULTURE (NAA COL COUNT) ([id number])Ordered By: Bread Wrapping Machine Feeder on 06-15-2014 Bacteria identified Cx Nom (U) Final report Abnormal [facility] Work Phone: Comment on above: PATIENT NOT FASTINGP ERFORMED BY: [facility] [id number] [facility] [id number] Information: SRC: URINE Bacteria identified Cx Nom (U) MRSA Abnormal [facility] Work Phone: Comment on above: Methicillin - resist ant Staphylococcus ,000-50,000 colony forming units per mLBased on resistance to oxacillin this isolate would be resistant toall currently available beta-lactam antimicrobial agents, with theexception of the newer cephalosporins with anti-MRSA activity, such asCeftarolineEscherichia coli, identified by an automated biochemical system.1,000 Colonies/mL S = Susceptible; I = Intermediate; R = Resistant P = Positive; N = Negative MICS are expressed in micrograms per mL Antibiotic RSLT#1 RSLT#2 RSLT#3 RSLT#4Amoxicillin/Clavulanic Acid SAmpicillin RCefepime SCeftriaxone SCefuroxime SCephalothin ICiprofloxacin S SErtapenem SGentamicin S SImipenem SLevofloxacin S SLinezolid SNitrofurantoin S SOxacillin RPenicillin RPiperacillin RRifampin STetracycline S STobramycin STrimethoprim/Sulfa S RVancomycin S PATIENT NOT FASTINGP ERFORMED BY: CALLIE [employer] [id number] [address] AircuityAt[facility] Health Pineville [id number] Information: SRC: URINE URINE DONNY CULTURE-NAA COL C OUNT ([id number])Ordered By: Bread Wrapping Machine Feeder on 05-28-2014 Bacteria identified Cx Nom (U) Escherichia coli Abnormal [facility] Work Phone: Comment on above: 10,000-25,000 colony forming units per mL PATIENT NOT FASTINGP ERFORMED BY: CALLIE Spinnakr [id number] [facility]opKind[facility] [id number] Information: SRC:PREM [id number] Bacteria identified Cx Nom (U) Final report Abnormal [facility] Work Phone: Comment on above: PATIENT NOT FASTINGP ERFORMED BY: CALLIE Spinnakr [id number] [address] AircuityAtrium Health Pineville [id number] Information: SRC:UR S18765 Bacteria identified Cx Nom (U) MUG Normal [facility] Work Phone: Comment on above: Mixed urogenital yenni ra10,000-25,000 colony forming units per mL S = Susceptible; I = Intermediate; R = Resistant P = Positive; N = Negative MICS are expressed in micrograms per mL Antibiotic RSLT#1 RSLT#2 RSLT#3 RSLT#4Amoxicillin/Clavulanic Acid SAmpicillin RCefepime SCeftriaxone SCefuroxime SCephalothin SCiprofloxacin SErtapenem SGentamicin SImipenem SLevofloxacin SNitrofurantoin SPiperacillin STetracycline STobramycin STrimethoprim/Sulfa S PATIENT NOT FASTINGP ERFORMED BY: ArticleAlley [id number] [address] AircuityAtrium Health Pineville [id number] Information: SRC:UR S61199 Urinalysis, Office ([id number])Or dered By: Makayla Guillen on 05-27-2014 Bilirubin Ql (U) Negative Normal Comprehe nsive Internal Medicine Work Phone: Bilirubin Ql (U) Negative Normal Comprehe nsive Internal Medicine; [facility] Work Phone: Glucose Test strip (U) [Mass/Vol] Negative Normal [facility]; [facility] Work Phone: Glucose Test strip mass conc (U) Negative Normal [facility] Work Phone: Hemoglobin Ql (U) Negative Normal Compreh ensive Internal Medicine Work Phone: Hemoglobin Ql (U) Negative Normal Compreh ensive [facility]; [facility] Work Phone: Hemoglobin Test strip Ql (U) Negative Normal [facility] Work Phone: Ketones Ql (U) Negative Normal Comprehens mignon Internal Medicine Work Phone: Ketones Ql (U) Negative Normal Comprehens [facility]; [facility] Work Phone: Leukocyte esterase Test strip Ql (U) Negative Normal [facility] Work Phone: Leukocyte esterase Test strip Ql (U) Negative Normal [facility]; [facility] Work Phone: Nitrite Ql (U) Negative Normal Comprehens [facility] Work Phone: Nitrite Ql (U) Negative Normal Comprehens [facility]; [facility] Work Phone: Nitrite Test strip Ql (U) Negative Normal [facility] Work Phone: pH (U) 7.0 [pH] Normal [facility] Work Phone: pH Test strip (U) 7.0 [pH] Normal Compreh ensive Internal Medicine Work Phone: Protein Ql (U) Negative Normal Comprehens [facility] Work Phone: Protein Ql (U) Negative Normal Comprehens [facility]; [facility] Work Phone: Protein Test strip Ql (U) Negative Normal [facility] Work Phone: Specific gravity Relative Density (U) 1.015 1 Normal Comprehensi ve Internal Medicine Work Phone: Urobilinogen mass/time (24H U) Normal Normal [facility] Work Phone: URINE DONNY CULTURE-NAA COL C OUNT ([id number])Ordered By: Bread Wrapping Machine Feeder on 04-22-2014 Bacteria identified Cx Nom (U) Escherichia coli Abnormal [facility] Work Phone: Comment on above: 50,000-100,000 colon y forming units per mL PATIENT NOT FASTINGP ERFORMED BY: Mbaobao [place] [id number] Information: SRC: URINE Bacteria identified Cx Nom (U) Final report Abnormal [facility] Work Phone: Comment on above: PATIENT NOT FASTINGP ERFORMED BY: Mbaobao [place] [id number] Information: SRC: URINE Other Antibiotic susc MIHEAD Normal [facility] prehensive Internal Medicine Work Phone: Comment on above: S = Susceptibl e; I = Intermediate; R = Resistant P = Positive; N = Negative MICS are expressed in micrograms per mL Antibiotic RSLT#1 RSLT#2 RSLT#3 RSLT#4Amoxicillin/Clavulanic Acid RAmpicillin RCefazolin RCefepime SCeftriaxone SCefuroxime SCephalothin RCiprofloxacin SErtapenem SGentamicin SImipenem SLevofloxacin SNitrofurantoin SPiperacillin RTetracycline STobramycin STrimethoprim/Sulfa R PATIENT NOT FASTINGP ERFORMED BY: [id number] [facility]ashopKind[facility] [id number] Information: SRC: URINE Urinalysis, Office ([id number])Or dered By: Mary Carlisle on 04-22-2014 Bilirubin Ql (U) Negative Normal Comprehe nsive Internal Medicine Work Phone: Bilirubin Ql (U) Negative Normal Comprehe nsive Internal Medicine; [facility] Work Phone: Glucose Test strip (U) [Mass/Vol] Negative Normal [facility]; [facility] Work Phone: Glucose Test strip mass conc (U) Negative Normal [facility] Work Phone: Hemoglobin Ql (U) Negative Normal Compreh ensive Internal Medicine Work Phone: Hemoglobin Ql (U) Negative Normal Compreh ensive Internal Medicine; [facility] Work Phone: Hemoglobin Test strip Ql (U) Negative Normal [facility] Work Phone: Ketones Ql (U) Negative Normal Comprehens [facility] Work Phone: Ketones Ql (U) Negative Normal Comprehens [facility]; [facility] Work Phone: Leukocyte esterase Test strip Ql (U) Trace Normal [facility] Work Phone: Nitrite Ql (U) Negative Normal Comprehens [facility] Work Phone: Nitrite Ql (U) Negative Normal Comprehens [facility]; [facility] Work Phone: Nitrite Test strip Ql (U) Negative Normal [facility] Work Phone: pH (U) 7 [pH] Normal [facility] Work Phone: pH Test strip (U) 7 [pH] Normal Compreh ensive Internal Medicine Work Phone: Protein Ql (U) Negative Normal Comprehens [facility] Work Phone: Protein Ql (U) Negative Normal Comprehens [facility]; [facility] Work Phone: Protein Test strip Ql (U) Negative Normal [facility] Work Phone: Specific gravity Relative Density (U) 1.015 1 Normal Comprehensi ve Internal Medicine Work Phone: Urobilinogen mass/time (24H U) Normal Normal [facility] Work Phone: URINE DONNY CULTURE (NAA COL COUNT) ([id number])Ordered By: Bread Wrapping Machine Feeder on 01-28-2014 Bacteria identified Cx Nom (U) Final report Normal [facility] Work Phone: Comment on above: PATIENT NOT FASTINGP ERFORMED BY: CALLIE [facility]In[facility] WoodburyFivgsu2587 [facility] [id number] Information: SRC:UR [id number] Bacteria identified Cx Nom (U) NG36 Normal [facility] Work Phone: Comment on above: No growth in 36 - 48 hours. PATIENT NOT FASTINGP ERFORMED BY: CALLIE [facility] [id number] [facility] [id number] Information: SRC:UR U94083 Urinalysis, Office ([id number])Or dered By: Mindy Wynn on 01-28-2014 Bilirubin Ql (U) Negative Normal Comprehe nsive Internal Medicine Work Phone: Bilirubin Ql (U) Negative Normal Comprehe nsive Internal Medicine; [facility] Work Phone: Glucose Test strip (U) [Mass/Vol] Negative Normal [facility]; [facility] Work Phone: Glucose Test strip mass conc (U) Negative Normal [facility] Work Phone: Hemoglobin Ql (U) Hemolyzed Trace Normal Co mprehensive Internal Medicine Work Phone: Hemoglobin Test strip Ql (U) Hemolyzed Trace Normal [facility] Work Phone: Ketones Ql (U) Negative Normal Comprehens [facility] Work Phone: Ketones Ql (U) Negative Normal Comprehens [facility]; [facility] Work Phone: Leukocyte esterase Test strip Ql (U) Small Normal [facility] Work Phone: Nitrite Ql (U) Negative Normal Comprehens [facility] Work Phone: Nitrite Ql (U) Negative Normal Comprehens [facility]; [facility] Work Phone: Nitrite Test strip Ql (U) Negative Normal [facility] Work Phone: pH (U) 6 [pH] Abnormal [facility] Work Phone: pH Test strip (U) 6 [pH] Abnormal Compreh ensive Internal Medicine Work Phone: Protein Ql (U) Negative Normal Comprehens [facility]ignon [facility] Work Phone: Protein Ql (U) Negative Normal Comprehens [facility]; [facility] Work Phone: Protein Test strip Ql (U) Negative Normal [facility] Work Phone: Specific gravity Relative Density (U) 1.010 1 Normal Comprehensi Internal Medicine Work Phone: Urobilinogen mass/time (24H U) Normal Normal [facility] Work Phone: CBCMDOrdered By: Adam charles on 03-21-2013 Erythrocyte distribution width Auto Ratio (RBC) 13.5 % Normal 11.6-14.6 [facility] Work Phone: Hematocrit Auto Volume Fraction (Bld) 42.1 % Normal 37-47 Comprehens [facility] Work Phone: Hemoglobin mass conc (Bld) 13.9 g/dL Normal 12.0-15.0 [facility] Work Phone: MCH Auto Entitic mass (RBC) 30.3 pg Normal 27.0-32.0 [facility] Work Phone: MCHC Auto mass conc (RBC) 33.0 g/dL Normal 32-36 [facility] Work Phone: MCV Auto Entitic volume (RBC) 91.9 fL Normal 81-99 [facility] Work Phone: Platelet mean volume Auto Entitic volume (Bld) 9.7 fL Normal 6.2-12.0 [facility] Work Phone: Platelets Auto #/vol (Bld) 264 10*3/uL Normal 150-450 [facility] Work Phone: RBC Auto #/vol (Bld) 4.58 {M/mm3} Normal 4.2-5.4 [facility] Work Phone: WBC Auto #/vol (Bld) 14.4 {k/mm3} Abnormal 4.4-11.0 [facility] Work Phone: CBCMD 0.4 % Normal 0-1 [facility] Work Phone: CBCMD 0.30 % Normal 0.0-0.9 [facility] Work Phone: Comment on above: IG% - Immature Granu locytes (promyelocytes, myelocytes,metamyelocytes) >1.0% indicates that a LEFT SHIFT ispresent. CBCMD 12.1 3/uL Abnormal 2.0-7.7 [facility] Work Phone: CBCMD 5.1 % Normal 0-10 [facility] Work Phone: CBCMD 3.7 % Normal 0-5 [facility] Work Phone: CBCMD 44.4 fL Abnormal 35.1-43.9 [facility] Work Phone: CBCMD 84.0 % Abnormal 47-70 [facility] Work Phone: CBCMD 6.5 % Abnormal 19-41 [facility] Work Phone: CMPOrdered By: System Manage r on 03-21-2013 Albumin mass conc 3.1 g/dL Abnormal 3.4-5.0 Compreh ensive Internal Medicine Work Phone: ALT enzyme act/vol 30 U/L Normal 12-78 Compre hensive Internal Medicine Work Phone: AST enzyme act/vol 20 U/L Normal 15-37 Compre hensive [facility] Medicine Work Phone: Calcium mass conc 7.9 mg/dL Abnormal 8.5-10.1 Compreh ensive [facility] Medicine Work Phone: Chloride molar conc 105 mmol/L Normal 98-107 Compr ehensive Internal Medicine Work Phone: CO2 molar conc 25.0 mmol/L Normal 21.0-32.0 Comprehen sive Internal Medicine Work Phone: Creatinine mass conc 0.7 mg/dL Normal 0.6-1.0 Comp rehensive Internal Medicine Work Phone: GFR/1.73 sq M predicted among non-blacks MDRD vol rate/area (S/P/Bld) 96 mL/min/{1.73_m2} Normal Comprehe nsive Internal Medicine Work Phone: Globulin Calculated mass conc (S) 2.5 g/dL Abnormal 2.7-4.2 [facility] Work Phone: Glucose mass conc 103 mg/dL Normal 70-110 Compreh ensive Internal Medicine Work Phone: Potassium molar conc 3.7 mmol/L Normal 3.5-5.1 Comp rehensive Internal Medicine Work Phone: Sodium molar conc 138 mmol/L Normal 136-145 Compreh ensive Internal Medicine Work Phone: Urea nitrogen mass conc 5 mg/dL Abnormal 7-18 [facility] Work Phone: CMP 0.60 mg/dL Normal 0.00-1.00 [facility] Work Phone: CMP 62 U/L Normal 50-136 [facility] Work Phone: CMP 1.2 {RATIO} Normal 0.9-2.4 [facility] Work Phone: CMP 5.6 g/dL Abnormal 6.4-8.2 [facility] Work Phone: CMP 7.1 {RATIO} Abnormal 10-20 [facility] Work Phone: CMP 116 mL/min Normal [facility] Work Phone: CMP 8 1 Normal 5-15 [facility] Work Phone: CRPOrdered By: System Manage r on 03-21-2013 CRP mass conc 18.60 mg/L Abnormal 0.0-3.0 Comprehensi Internal Medicine Work Phone: Comment on above: C-Reactive Protein ( CRP) provides useful information for thediagnosis, therapy and monitoring of inflammatory processesand associated diseases. For the evaluation of Relative Riskfor Cardiovascular Disease, a High Sensitivity CRP (HSCRP)should be ordered. SEDOrdered By: System Manage r on 03-21-2013 SED 17 mm/h Normal 0-20 [facility] Work Phone: DONNY CULTURE-STOOL ([id number])Ord ered By: Bread Wrapping Machine Feeder on 03-20-2013 Bacteria identified Cx Nom (Unsp spec) NCI Normal [facility] Work Phone: Comment on above: No Campylobacter spe cies isolated. PATIENT NOT FASTINGP ERFORMED BY: CB [facility] [id number] [address]ccord RoadDublin [place] [id number] Information: SRC: STOOL [id number] Bacteria identified Cx Nom (Unsp spec) NSS Normal [facility] Work Phone: Comment on above: No Salmonella or June gella recovered. PATIENT NOT FASTINGP ERFORMED BY: CB [facility] [id number] [address]ccord RoadDublin [place] [id number] Information: SRC: STOOL [id number] Campylobacter sp identified Org specific cx Nom (St) Final report Normal Comprehensi ve Internal Medicine Work Phone: Comment on above: PATIENT NOT FASTINGP ERFORMED BY: CB [facility] [id number] [facility] [place] [id number] Information: SRC: STOOL [id number] E. coli shiga-like toxin IA Ql (St) Negative Normal [facility] Work Phone: Comment on above: PATIENT NOT FASTINGP ERFORMED BY: CB [facility] [id number] [facility] [place] [id number] Information: SRC: STOOL I27507 E. coli shiga-like toxin IA Ql (Stl) Negative Normal [facility]; [facility] Work Phone: Comment on above: PATIENT NOT FASTINGP ERFORMED BY: CB [facility] [id number] [address] [facility] [place] [id number] Information: SRC: STOOL F95679 Salmonella and Shigella sp identified Org specific cx Nom (St) Final report Normal Comprehensi ve Internal Medicine Work Phone: Comment on above: PATIENT NOT FASTINGP ERFORMED BY: CB [facility] [id number] [address] [facility] [place] [id number] Information: SRC: STOOL M58619 LEUKOCYTE COUNT, FECAL ([id number])Ordered By: Bread Wrapping Machine Feeder on 03-20-2013 WBC LM Ql (St) Final report Normal Comprehe nsive Internal Medicine Work Phone: Comment on above: Reference Range: Non e Seen PATIENT NOT FASTINGP ERFORMED BY: [facility] [id number] [address] [facility] [place] [id number] WBC LM Ql (St) WCM Normal Comprehens mignon [facility] Work Phone: Comment on above: Moderate amount of w grace blood cells. PATIENT NOT FASTINGP ERFORMED BY: [facility] [id number] [address] [facility] [place] [id number] OCCULT BLOOD FECES SCREEN ([id number])Ordered By: Bread Wrapping Machine Feeder on 03-20-2013 Lower GI hemoglobin IA Ql (St) Positive Abnormal [facility] Work Phone: Comment on above: PATIENT NOT FASTINGP ERFORMED BY: [facility] [id number] [address] [facility] [place] [id number] Lower GI hemoglobin IA Ql (Stl) Positive Abnormal [facility]; [facility] Work Phone: Comment on above: PATIENT NOT FASTINGP ERFORMED BY: [facility] [id number] [facility] [place] [id number] OVA & PARASITE DIR SMEAR ([phone])Ordered By: Bread Wrapping Machine Feeder on 03-20-2013 Ova and parasites identified Concentration Nom (St) NOCP Normal [facility] Work Phone: Comment on above: No ova, cysts, or pa rasites seen. PATIENT NOT FASTINGP ERFORMED BY: [facility] Mionrd7501 [facility] [place] [id number] Ova and parasites identified LM Nom (Unsp spec) Final report Normal [facility] Work Phone: Comment on above: These results were o btained using wet preparation(s) and trichromestained smear. This test does not include testing for Cryptosporidiumparvum, Cyclospora, or Microsporidia. PATIENT NOT FASTINGP ERFORMED BY: [facility] [id number] [facility] [place] [id number] ABDOMEN/PELVIS WITH CONTRAST Ordered By: Bread Wrapping Machine Feeder on 03-19-2013 ABDOMEN/PELVIS WITH CONTRAST See Note Normal [facility] Work Phone: Comment on above: PROCEDURE: CT ABDOME N AND PELVIS WITH CONTRAST REASON FOR EXAM: Female, 47 years old. LOW ABDOMEN AND UMBILICALPAIN,PT HAS HX:LEUKEMIA RADIATION DOSAGE (If Supplied By Facility): CTDIvol = ( 12.15 ) mGy, DLP=( 1081.13 ) mGycm TECHNIQUE: Transaxial images were obtained from the dome of thediaphragmto the symphysis pubis with oral contrast. 100ML ml of Isovue 300contrastwas administered. COMPARISON: None. FINDINGS:There are small bilateral pleural effusions. The visualized portions ofthe heart are within normal limits. Normal liver. Normal gallbladder and extrahepatic biliary system.Normalspleen. Normal pancreas. Normal bilateral adrenal glands. Normal right kidney. Normal left kidney. Normal visualized stomach. Normal small intestine. There is diffusepericolonic inflammatory change and wall thickening of the colon, worstofthe transverse colon and hepatic flexure, consistent with a colitis. Thecolitis is likely infectious or inflammatory in origin. Pseudomembranouscolitis is possible. The appendix is visualized and appears normal. Normal abdominal aorta. Normal inferior vena cava. There is a 1.5-cm rounded fluid structure in the right pelvis. It couldrepresent a fluid loculation, cyst, necrotic or treated lymph node. There are a few right adnexal cystic structures measuring about 1 cm. Normal urinary bladder. Normal abdominal wall. Normal osseous structures. IMPRESSION:There is diffuse pericolonic inflammatory change and wall thickening ofthecolon, worst of the transverse colon and hepatic flexure, consistent withacolitis. The colitis is likely infectious or inflammatory in origin.Pseudomembranous colitis is possible.There are small bilateral pleural effusions.There is a 1.5-cm rounded fluid structure in the right pelvis. It couldrepresent a fluid loculation, cyst, necrotic or treated lymph node.There are a few right adnexal cystic structures measuring about 1 cm. Signed:Hannah Plummer M.D.March 19, 2013 at 9:35:58 PM [id number] Signed JL/JL If you are the referring physician and would like to consult with theradiologist who provided this interpretation, please contact Hannah Plummer M.D. at [phone]. If this radiologist is unavailable, you will bedirected to another radiologist to assist. If you are a patient with a question regarding this report, pleasecontactyour referring physician directly. Professional Interpretation Provided By: Vysr, Phone , These documents contain legally protected and confidential healthinformation intended only for the use of the individual or entity namedabove. If you are not the intended recipient, you are hereby notifiedthatany disclosure, copying, distribution, or other use of these documents isstrictly prohibited. If you have received this information in error,pleasenotify the sender immediately and arrange for the return or destructionofthese documents. Dictated on 03/19/132134 by JARON PLUMMER MDIATranscribed on 03/19/132149 by ITS IMPORTSign by HANNAH PLUMMER MD on 03/19/132149 Sign by: HANNAH PLUMMER MD C difficile Toxins A+B, EIAO rdered By: Bread Wrapping Machine Feeder on 03-19-2013 C. difficile toxin A+B IA Ql (St) Positive Abnormal [facility] Work Phone: Urinalysis, Office ([id number])Or dered By: Mindy Wynn on 03-12-2013 Bilirubin Ql (U) Negative Normal Comprehe nsive [facility] Work Phone: Bilirubin Ql (U) Negative Normal Comprehe nsive [facility]; [facility] Work Phone: Glucose Test strip (U) [Mass/Vol] Negative Normal [facility]; [facility] Work Phone: Glucose Test strip mass conc (U) Negative Normal [facility] Work Phone: Hemoglobin Ql (U) Non Hemolyzed Moderate Normal [facility] Work Phone: Hemoglobin Test strip Ql (U) Non Hemolyzed Moderate Normal Comprehen sive [facility] Work Phone: Ketones Ql (U) Negative Normal Comprehens [facility] Work Phone: Ketones Ql (U) Negative Normal Comprehens [facility]; [facility] Work Phone: Leukocyte esterase Test strip Ql (U) Negative Normal [facility] Work Phone: Comment on above: patient is currently on period Leukocyte esterase Test strip Ql (U) Negative Normal [facility]; [facility] Work Phone: Comment on above: patient is currently on period Nitrite Ql (U) Negative Normal Comprehens [facility] Work Phone: Nitrite Ql (U) Negative Normal Comprehens [facility]; [facility] Work Phone: Nitrite Test strip Ql (U) Negative Normal [facility] Work Phone: pH (U) 5.0 [pH] Normal [facility] Work Phone: pH Test strip (U) 5.0 [pH] Normal Compreh ensive [facility] Work Phone: Protein Ql (U) Negative Normal Comprehens [facility] Work Phone: Protein Ql (U) Negative Normal Comprehens [facility]; [facility] Work Phone: Protein Test strip Ql (U) Negative Normal [facility] Work Phone: Specific gravity Relative Density (U) 1.015 1 Normal Comprehensi ve [facility] Work Phone: Urobilinogen mass/time (24H U) Normal Normal [facility] Work Phone: CBC WITH MANUAL DIFF ([id number]) Ordered By: Bread Wrapping Machine Feeder on 02-18-2013 Basophils (Bld) [#/Vol] 0.0 {x10E3/uL} Normal 0.0-0.2 [facility] Work Phone: Comment on above: PATIENT NOT FASTINGP ERFORMED BY: CALLIE [facility] WoodburyCfrkik2283 [facility] [id number] Information: [id number] Basophils (Bld) [#/Vol] 0.0 10*3/uL Normal 0.0-0.2 [facility]; [facility] Work Phone: Comment on above: PATIENT NOT FASTINGP ERFORMED BY: [place] 8584770 [facility] [id number] Information: [id number] Basophils Auto #/vol (Bld) 0.0 {x10E3/uL} Normal 0.0-0.2 [facility] Work Phone: Basophils/100 WBC (Bld) 1 % Normal 0-3 [facility] Work Phone: Comment on above: PATIENT NOT FASTINGP ERFORMED BY: [address] [id number] Information: [id number] Basophils/100 WBC Auto (Bld) 1 % Normal 0-3 [facility] Work Phone: Eosinophils (Bld) [#/Vol] 0.3 {x10E3/uL} Normal 0.0-0.4 [facility] Work Phone: Comment on above: PATIENT NOT FASTINGP ERFORMED BY: [address] [id number] Information: [id number] Eosinophils (Bld) [#/Vol] 0.3 10*3/uL Normal 0.0-0.4 [facility]; [facility] Work Phone: Comment on above: PATIENT NOT FASTINGP ERFORMED BY: [place] 8584770 [facility] [id number] Information: [id number] Eosinophils Auto #/vol (Bld) 0.3 {x10E3/uL} Normal 0.0-0.4 [facility] Work Phone: Eosinophils/100 WBC (Bld) 3 % Normal 0-7 [facility] Work Phone: Comment on above: PATIENT NOT FASTINGP ERFORMED BY: [place] 85847[address] [facility] [id number] Information: [id number] Eosinophils/100 WBC Auto (Bld) 3 % Normal 0-7 [facility] Work Phone: Erythrocyte distribution width (RBC) [Ratio] 13.8 % Normal 12.3-15.4 [facility] Work Phone: Comment on above: PATIENT NOT FASTINGP ERFORMED BY: [address] [id number] Information: [id number] Erythrocyte distribution width Auto Ratio (RBC) 13.8 % Normal 12.3-15.4 [facility] Work Phone: Hematocrit (Bld) [Volume fraction] 41.4 % Normal 34.0-46.6 [facility] Work Phone: Comment on above: PATIENT NOT FASTINGP ERFORMED BY: [address] [id number] Information: [id number] Hematocrit Auto Volume Fraction (Bld) 41.4 % Normal 34.0-46.6 [facility] Work Phone: Hemoglobin mass conc (Bld) 13.6 g/dL Normal 11.1-15.9 [facility] Work Phone: Comment on above: PATIENT NOT FASTINGP ERFORMED BY: [place] 8584770 [facility] [id number] Information: [id number] Immature granulocytes #/vol (Bld) 0.0 {x10E3/uL} Normal 0.0-0.1 [facility] Work Phone: Comment on above: PATIENT NOT FASTINGP ERFORMED BY: [place] 85847[address] [facility] [id number] Information: [id number] Immature granulocytes (Bld) [#/Vol] 0.0 10*3/uL Normal 0.0-0.1 [facility]; [facility] Work Phone: Comment on above: PATIENT NOT FASTINGP ERFORMED BY: CALLIE Clarke [facility] [id number] Information: [id number] Immature granulocytes/100 WBC (Bld) 0 % Normal 0-2 [facility] Work Phone: Comment on above: PATIENT NOT FASTINGP ERFORMED BY: CALLIE Contreras[address] [id number] Information: [id number] Lymphocytes (Bld) [#/Vol] 1.5 {x10E3/uL} Normal 0.7-4.5 [facility] Work Phone: Comment on above: PATIENT NOT FASTINGP ERFORMED BY: CALLIE Hassan [address] [id number] Information: [id number] Lymphocytes (Bld) [#/Vol] 1.5 10*3/uL Normal 0.7-4.5 [facility]; [facility] Work Phone: Comment on above: PATIENT NOT FASTINGP ERFORMED BY: CALLIE Contreraslin6370 [facility] [id number] Information: [id number] Lymphocytes Auto #/vol (Bld) 1.5 {x10E3/uL} Normal 0.7-4.5 [facility] Work Phone: Lymphocytes/100 WBC (Bld) 17 % Normal 14-46 [facility] Work Phone: Comment on above: PATIENT NOT FASTINGP ERFORMED BY: CALLIE Hassan Gpgtgy6218 [facility] [id number] Information: [id number] Lymphocytes/100 WBC Auto (Bld) 17 % Normal 14-46 [facility] Work Phone: MCH (RBC) [Entitic mass] 30.6 pg Normal 26.6-33.0 [facility] Work Phone: Comment on above: PATIENT NOT FASTINGP ERFORMED BY: [place] 8[address]47[address] [facility] [id number] Information: [id number] MCH Auto Entitic mass (RBC) 30.6 pg Normal 26.6-33.0 [facility] Work Phone: MCHC (RBC) [Mass/Vol] 32.9 g/dL Normal 31.5-35.7 [facility] Work Phone: Comment on above: PATIENT NOT FASTINGP ERFORMED BY: [place] 85847[address] [facility] [id number] Information: [id number] MCHC Auto mass conc (RBC) 32.9 g/dL Normal 31.5-35.7 [facility] Work Phone: MCV (RBC) [Entitic vol] 93 fL Normal 79-97 [facility] Work Phone: Comment on above: PATIENT NOT FASTINGP ERFORMED BY: [place] 8[address]47[address] [facility] [id number] Information: [id number] MCV Auto Entitic volume (RBC) 93 fL Normal 79-97 [facility] Work Phone: Monocytes (Bld) [#/Vol] 0.8 {x10E3/uL} Normal 0.1-1.0 [facility] Work Phone: Comment on above: PATIENT NOT FASTINGP ERFORMED BY: [place] 8[address]47[address] [facility] [id number] Information: [id number] Monocytes (Bld) [#/Vol] 0.8 10*3/uL Normal 0.1-1.0 [facility]; [facility] Work Phone: Comment on above: PATIENT NOT FASTINGP ERFORMED BY: [place] 85847[address] [facility] [id number] Information: [id number] Monocytes Auto #/vol (Bld) 0.8 {x10E3/uL} Normal 0.1-1.0 [facility] Work Phone: Monocytes/100 WBC (Bld) 10 % Normal 4- [facility] Work Phone: Comment on above: PATIENT NOT FASTINGP ERFORMED BY: CALLIE Galvan6370 [facility] [id number] Information: [id number] Monocytes/100 WBC Auto (Bld) 10 % Normal - [facility] Work Phone: Neutrophils (Bld) [#/Vol] 5.8 {x10E3/uL} Normal 1.8-7.8 [facility] Work Phone: Comment on above: PATIENT NOT FASTINGP ERFORMED BY: CALLIE Contreraslin6370 [facility] [id number] Information: [id number] Neutrophils (Bld) [#/Vol] 5.8 10*3/uL Normal 1.8-7.8 [facility]; [facility] Work Phone: Comment on above: PATIENT NOT FASTINGP ERFORMED BY: CALLIE Galvan6370 [facility] [id number] Information: [id number] Neutrophils Auto #/vol (Bld) 5.8 {x10E3/uL} Normal 1.8-7.8 [facility] Work Phone: Neutrophils/100 WBC (Bld) 69 % Normal 40-74 [facility] Work Phone: Comment on above: PATIENT NOT FASTINGP ERFORMED BY: CALLIE [facility] Hileut5922 [facility] [id number] Information: [id number] Neutrophils/100 WBC Auto (Bld) 69 % Normal 40-74 [facility] Work Phone: Platelets (Bld) [#/Vol] 258 {x10E3/uL} Normal 140-415 [facility] Work Phone: Comment on above: PATIENT NOT FASTINGP ERFORMED BY: CALLIE Galvan6370 [facility] [id number] Information: [id number] Platelets (Bld) [#/Vol] 258 10*3/uL Normal 140-415 [facility]; [facility] Work Phone: Comment on above: PATIENT NOT FASTINGP ERFORMED BY: CALLIE Clarke [facility] [id number] Information: [id number] Platelets Auto #/vol (Bld) 258 {x10E3/uL} Normal 140-415 [facility] Work Phone: RBC (Bld) [#/Vol] 4.44 {x10E6/uL} Normal 3.77-5.28 [facility] Work Phone: Comment on above: PATIENT NOT FASTINGP ERFORMED BY: CALLIE Galvan6370 [facility] [id number] Information: [id number] RBC (Bld) [#/Vol] 4.44 10*6/uL Normal 3.77-5.28 [facility]; [facility] Work Phone: Comment on above: PATIENT NOT FASTINGP ERFORMED BY: CALLIE Galvan6370 [facility] [id number] Information: [id number] RBC Auto #/vol (Bld) 4.44 {x10E6/uL} Normal 3.77-5.28 [facility] Work Phone: WBC (Bld) [#/Vol] 8.4 {x10E3/uL} Normal 4.0-10.5 [facility] Work Phone: Comment on above: PATIENT NOT FASTINGP ERFORMED BY: CALLIE Hassan Bpgchl8472 [facility] [id number] Information: [id number] WBC (Bld) [#/Vol] 8.4 10*3/uL Normal 4.0-10.5 Compre hensive [facility]; [facility] Work Phone: Comment on above: PATIENT NOT FASTINGP ERFORMED BY: CALLIE [facility] Ciqiyc7521 [facility] [id number] Information: [id number] WBC Auto #/vol (Bld) 8.4 {x10E3/uL} Normal 4.0-10.5 [facility] Work Phone: URINE DONNY CULTURE-NAA COL C OUNT ([id number])Ordered By: Bread Wrapping Machine Feeder on 02-18-2013 Bacteria identified Cx Nom (U) ECV Normal [facility] Work Phone: Comment on above: Escherichia coli, id entified by an automated biochemical system.Greater than 100,000 colony forming units per mL S = Susceptible; I = Intermediate; R = Resistant P = Positive; N = Negative MICS are expressed in micrograms per mL Antibiotic RSLT#1 RSLT#2 RSLT#3 RSLT#4Amoxicillin/Clavulanic Acid RAmpicillin RCefazolin SCefepime SCeftriaxone SCefuroxime SCephalothin RCiprofloxacin SESBL NErtapenem SGentamicin SImipenem SLevofloxacin SNitrofurantoin SPiperacillin RTetracycline STobramycin STrimethoprim/Sulfa R PATIENT NOT FASTINGP ERFORMED BY: CALLIE [facility] Omttda1215 [facility] [id number] Information: SRC:UR [id number] Bacteria identified Cx Nom (U) Final report Normal [facility] Work Phone: Comment on above: PATIENT NOT FASTINGP ERFORMED BY: CALLIE [facility] Obolmt1983 [facility] [id number] Information: SRC:UR [id number] Urinalysis, Office ([id number])Or dered By: Mindy Wynn on 02-18-2013 Bilirubin Ql (U) Negative Normal Comprehe nsive [facility] Work Phone: Bilirubin Ql (U) Negative Normal Comprehe nsive [facility]; [facility] Work Phone: Glucose Test strip (U) [Mass/Vol] Negative Normal [facility]; [facility] Work Phone: Glucose Test strip mass conc (U) Negative Normal [facility] Work Phone: Hemoglobin Ql (U) Non Hemolyzed Moderate Normal [facility] Work Phone: Hemoglobin Test strip Ql (U) Non Hemolyzed Moderate Normal Comprehen sive [facility] Work Phone: Ketones Ql (U) Negative Normal Comprehens [facility] Work Phone: Ketones Ql (U) Negative Normal Comprehens [facility]; [facility] Work Phone: Leukocyte esterase Test strip Ql (U) Large Normal [facility] Work Phone: Nitrite Ql (U) Positive Normal Comprehens [facility] Work Phone: Nitrite Ql (U) Positive Normal Comprehens [facility]; [facility] Work Phone: Nitrite Test strip Ql (U) Positive Normal [facility] Work Phone: pH (U) 6.0 [pH] Normal [facility] Work Phone: pH Test strip (U) 6.0 [pH] Normal Compreh ensive [facility] Work Phone: Protein Ql (U) 30 mg/dL Normal Comprehens [facility] Work Phone: Protein Test strip Ql (U) 30 mg/dL Normal [facility] Work Phone: Specific gravity Relative Density (U) 1.020 1 Normal Comprehensi ve [facility] Work Phone: Urobilinogen mass/time (24H U) Normal Normal [facility] Work Phone: LIPIDOrdered By: Adam charles on 12-18-2012 Cholesterol in HDL mass conc 64 mg/dL Normal [facility] Work Phone: Comment on above: Reference RangeHDL < 40 mg/dL Low HDL CholesterolHDL >or= 60 mg/dL High HDL Cholesterol Cholesterol in LDL mass conc 150 mg/dL Abnormal 0-130 [facility] Work Phone: Cholesterol mass conc 228 mg/dL Abnormal Com prehensive [facility] Work Phone: Comment on above: <200 mg/dL Desirable 200-240 mg/dL Borderline>240 mg/dL High Risk Triglyceride mass conc 72 mg/dL Normal [facility] Work Phone: Comment on above: Serum Triglycerides Reference IntervalNormal <150 mg/dLBorderline high 150 - 199 mg/dLHigh 200 - 499 mg/dLVery High > or = 500 mg/dL LIPID 14 mg/dL Normal 5-40 [facility] Work Phone: LIVEROrdered By: Adam charles on 12-18-2012 Albumin mass conc 3.9 g/dL Normal 3.4-5.0 Compreh ensive [facility] Work Phone: ALT enzyme act/vol 33 U/L Normal 12-78 Compre hensive [facility] Work Phone: AST enzyme act/vol 24 U/L Normal 15-37 [facility] Work Phone: Protein mass conc 7.4 g/dL Normal 6.4-8.2 Compreh ensive [facility] Work Phone: LIVER 0.21 mg/dL Normal 0.00-0.30 [facility] Work Phone: LIVER 58 U/L Normal 50-136 [facility] Work Phone: LIVER 1.20 mg/dL Abnormal 0.00-1.00 [facility] Work Phone: ACUTE ABDOMEN, INC CHESTOrde red By: Bread Wrapping Machine Feeder on 07-03-2012 ACUTE ABDOMEN, INC CHEST See Note Normal [facility] Work Phone: Comment on above: PROCEDURE: X-RAY - C HEST, ABDOMEN, AND PELVIS REASON FOR EXAM: Female, 46 years old. Constipation. TECHNIQUE: Four views of the chest, abdomen and pelvis were obtained. COMPARISON: Comparison is made with prior study dated September 29, 2011. FINDINGS: The lungs are expanded. There is no demonstrated pulmonary parenchymalabnormality. There is no demonstrated pleural abnormality. The heart is normal in size and morphology. There is a moderate amount of colonic fecal material. There is nodemonstrated free abdominal air. Normal visualized liver. Normal visualized spleen. Normal visualized kidneys. There are multiple calcified phleboliths. Normal visualized osseous structures. IMPRESSION:A moderate amount of fecal material is seen in the colon. Signed:Gene Mario M.D.July 03, 2012 at 10:05:07 AM [id number] Signed GP/GP If you are the referring physician and would like to consult with theradiologist who provided this interpretation, please contact Christina Barone at [phone]. If this radiologist is unavailable, youwill be directed to another radiologist to assist. If you are a patient with a question regarding this report, pleasecontactyour referring physician directly. Professional Interpretation Provided By: Vysr, Phone , These documents contain legally protected and confidential healthinformation intended only for the use of the individual or entity namedabove. If you are not the intended recipient, you are hereby notifiedthatany disclosure, copying, distribution, or other use of these documents isstrictly prohibited. If you have received this information in error,pleasenotify the sender immediately and arrange for the return or destructionofthese documents. Dictated on 07/03/12 0908 by Sherin Mario MDranscribed on 07/03/12 1011 by ITS IMPORTSign by Gene Mario MD on 07/03/12 1012 Sign by: Gene Mario MD CBC WITH MANUAL DIFF ([id number]) Ordered By: Bread Wrapping Machine Feeder on 07-03-2012 Basophils (Bld) [#/Vol] 0.0 {x10E3/uL} Normal 0.0-0.2 [facility] Work Phone: Comment on above: PATIENT NOT FASTINGP ERFORMED BY: [facility]6370 [facility] [id number] Information: [id number] Basophils (Bld) [#/Vol] 0.0 10*3/uL Normal 0.0-0.2 [facility]; [facility] Work Phone: Comment on above: PATIENT NOT FASTINGP ERFORMED BY: [place] 85847[address] [facility] [id number] Information: [id number] Basophils Auto #/vol (Bld) 0.0 {x10E3/uL} Normal 0.0-0.2 [facility] Work Phone: Basophils/100 WBC (Bld) 0 % Normal 0-3 [facility] Work Phone: Comment on above: PATIENT NOT FASTINGP ERFORMED BY: [place] 8584770 [facility] [id number] Information: [id number] Basophils/100 WBC Auto (Bld) 0 % Normal 0-3 [facility] Work Phone: Eosinophils (Bld) [#/Vol] 0.2 {x10E3/uL} Normal 0.0-0.4 [facility] Work Phone: Comment on above: PATIENT NOT FASTINGP ERFORMED BY: [facility]6370 [facility] [id number] Information: [id number] Eosinophils (Bld) [#/Vol] 0.2 10*3/uL Normal 0.0-0.4 [facility]; [facility] Work Phone: Comment on above: PATIENT NOT FASTINGP ERFORMED BY: [place] 8584770 [facility] [id number] Information: [id number] Eosinophils Auto #/vol (Bld) 0.2 {x10E3/uL} Normal 0.0-0.4 [facility] Work Phone: Eosinophils/100 WBC (Bld) 3 % Normal 0-7 [facility] Work Phone: Comment on above: PATIENT NOT FASTINGP ERFORMED BY: LabJorge Ville [id number] [facility] [id number] Information: [id number] Eosinophils/100 WBC Auto (Bld) 3 % Normal 0-7 [facility] Work Phone: Erythrocyte distribution width (RBC) [Ratio] 13.3 % Normal 12.3-15.4 [facility] Work Phone: Comment on above: PATIENT NOT FASTINGP ERFORMED BY: [place] [id number] [facility] [id number] Information: [id number] Erythrocyte distribution width Auto Ratio (RBC) 13.3 % Normal 12.3-15.4 [facility] Work Phone: Hematocrit (Bld) [Volume fraction] 42.6 % Normal 34.0-46.6 [facility] Work Phone: Comment on above: PATIENT NOT FASTINGP ERFORMED BY: [place] [id number] [facility] [id number] Information: [id number] Hematocrit Auto Volume Fraction (Bld) 42.6 % Normal 34.0-46.6 [facility] Internal Medicine Work Phone: Hemoglobin mass conc (Bld) 14.5 g/dL Normal 11.1-15.9 [facility] Work Phone: Comment on above: PATIENT NOT FASTINGP ERFORMED BY: LabJorge V[place] [id number] [facility] [id number] Information: [id number] Immature granulocytes #/vol (Bld) 0.0 {x10E3/uL} Normal 0.0-0.1 [facility] Work Phone: Comment on above: PATIENT NOT FASTINGP ERFORMED BY: [place] [id number] [facility] [id number] Information: [id number] Immature granulocytes (Bld) [#/Vol] 0.0 10*3/uL Normal 0.0-0.1 [facility]; [facility] Work Phone: Comment on above: PATIENT NOT FASTINGP ERFORMED BY: CALLIE Galvan6370 [facility] [id number] Information: [id number] Immature granulocytes/100 WBC (Bld) 0 % Normal 0-2 [facility] Work Phone: Comment on above: PATIENT NOT FASTINGP ERFORMED BY: [address] [id number] Information: [id number] Lymphocytes (Bld) [#/Vol] 1.9 {x10E3/uL} Normal 0.7-4.5 [facility] Work Phone: Comment on above: PATIENT NOT FASTINGP ERFORMED BY: [address] [id number] Information: [id number] Lymphocytes (Bld) [#/Vol] 1.9 10*3/uL Normal 0.7-4.5 [facility]; [facility] Work Phone: Comment on above: PATIENT NOT FASTINGP ERFORMED BY: CALLIE PatrickJorge Ville [id number] [facility] [id number] Information: [id number] Lymphocytes Auto #/vol (Bld) 1.9 {x10E3/uL} Normal 0.7-4.5 [facility] Work Phone: Lymphocytes/100 WBC (Bld) 26 % Normal 14-46 [facility] Work Phone: Comment on above: PATIENT NOT FASTINGP ERFORMED BY: CALLIE [place] [id number] [facility] [id number] Information: [id number] Lymphocytes/100 WBC Auto (Bld) 26 % Normal 14-46 [facility] Work Phone: MCH (RBC) [Entitic mass] 30.8 pg Normal 26.6-33.0 [facility] Work Phone: Comment on above: PATIENT NOT FASTINGP ERFORMED BY: CALLIE Contreraslin6370 [facility] [id number] Information: [id number] MCH Auto Entitic mass (RBC) 30.8 pg Normal 26.6-33.0 [facility] Internal Medicine Work Phone: MCHC (RBC) [Mass/Vol] 34.0 g/dL Normal 31.5-35.7 [facility] Internal Medicine Work Phone: Comment on above: PATIENT NOT FASTINGP ERFORMED BY: CALLIE Contreraslin6370 [facility] [id number] Information: [id number] MCHC Auto mass conc (RBC) 34.0 g/dL Normal 31.5-35.7 [facility] Internal Medicine Work Phone: MCV (RBC) [Entitic vol] 90 fL Normal 79-97 [facility] Work Phone: Comment on above: PATIENT NOT FASTINGP ERFORMED BY: CALLIE Contreraslin6370 [facility] [id number] Information: [id number] MCV Auto Entitic volume (RBC) 90 fL Normal 79-97 [facility] Internal Medicine Work Phone: Monocytes (Bld) [#/Vol] 0.7 {x10E3/uL} Normal 0.1-1.0 [facility] Work Phone: Comment on above: PATIENT NOT FASTINGP ERFORMED BY: CALLIE Silvestre Uivunb5277 [facility] [id number] Information: [id number] Monocytes (Bld) [#/Vol] 0.7 10*3/uL Normal 0.1-1.0 [facility]; [facility] Work Phone: Comment on above: PATIENT NOT FASTINGP ERFORMED BY: CALLIE Contreraslin6370 [facility] [id number] Information: [id number] Monocytes Auto #/vol (Bld) 0.7 {x10E3/uL} Normal 0.1-1.0 [facility] Work Phone: Monocytes/100 WBC (Bld) 9 % Normal 4-13 [facility] Work Phone: Comment on above: PATIENT NOT FASTINGP ERFORMED BY: CALLIE [facility] Pqjguy7648 [facility] [id number] Information: [id number] Monocytes/100 WBC Auto (Bld) 9 % Normal - [facility] Work Phone: Neutrophils (Bld) [#/Vol] 4.3 {x10E3/uL} Normal 1.8-7.8 [facility] Work Phone: Comment on above: PATIENT NOT FASTINGP ERFORMED BY: CALLIE [facility] Azpxje6850 [facility] [id number] Information: [id number] Neutrophils (Bld) [#/Vol] 4.3 10*3/uL Normal 1.8-7.8 [facility]; [facility] Work Phone: Comment on above: PATIENT NOT FASTINGP ERFORMED BY: [facility] Ldzqmz3704 [facility] [id number] Information: [id number] Neutrophils Auto #/vol (Bld) 4.3 {x10E3/uL} Normal 1.8-7.8 [facility] Work Phone: Neutrophils/100 WBC (Bld) 62 % Normal 40-74 [facility] Work Phone: Comment on above: PATIENT NOT FASTINGP ERFORMED BY: CALLIE [place] [id number] [facility] [id number] Information: [id number] Neutrophils/100 WBC Auto (Bld) 62 % Normal 40-74 [facility] Work Phone: Platelets (Bld) [#/Vol] 262 {x10E3/uL} Normal 140-415 [facility] Work Phone: Comment on above: PATIENT NOT FASTINGP ERFORMED BY: CALLIE Galvan6370 [facility] [id number] Information: [id number] Platelets (Bld) [#/Vol] 262 10*3/uL Normal 140-415 [facility]; [facility] Work Phone: Comment on above: PATIENT NOT FASTINGP ERFORMED BY: CALLIE Bhakta70 [facility] [id number] Information: [id number] Platelets Auto #/vol (Bld) 262 {x10E3/uL} Normal 140-415 [facility] Work Phone: RBC (Bld) [#/Vol] 4.71 {x10E6/uL} Normal 3.77-5.28 [facility] Internal Medicine Work Phone: Comment on above: PATIENT NOT FASTINGP ERFORMED BY: CALLIE Odalis Galvan6370 [facility] [id number] Information: [id number] RBC (Bld) [#/Vol] 4.71 10*6/uL Normal 3.77-5.28 [facility] Internal Medicine; [facility] Work Phone: Comment on above: PATIENT NOT FASTINGP ERFORMED BY: CALLIE Odalis Galvan6370 [facility] [id number] Information: [id number] RBC Auto #/vol (Bld) 4.71 {x10E6/uL} Normal 3.77-5.28 [facility] Work Phone: WBC (Bld) [#/Vol] 7.1 {x10E3/uL} Normal 4.0-10.5 [facility] Internal Medicine Work Phone: Comment on above: PATIENT NOT FASTINGP ERFORMED BY: CALLIE Hassan Okhpud0710 [facility] [id number] Information: [id number] WBC (Bld) [#/Vol] 7.1 10*3/uL Normal 4.0-10.5 [facility] Internal Medicine; [facility] Work Phone: Comment on above: PATIENT NOT FASTINGP ERFORMED BY: CB [facility] Suqwrr27[address]Dublin [place] [id number] Information: [id number] WBC Auto #/vol (Bld) 7.1 {x10E3/uL} Normal 4.0-10.5 [facility] Work Phone: METABOLIC PANEL, COMPREHENSI VE ([id number])Ordered By: [employer] W[employer] Machine Feeder on 07-03-2012 Albumin mass conc 4.6 g/dL Normal 3.5-5.5 [facility] Work Phone: Comment on above: PATIENT NOT FASTINGP ERFORMED BY: CB [facility] Abchqh6263 [address]Dublin [place] [id number] Albumin/Globulin mass ratio 1.8 {ratio} Normal 1.1-2.5 [facility] Work Phone: Comment on above: PATIENT NOT FASTINGP ERFORMED BY: CB [facility] Hdymbu2679 [address]Dublin [place] [id number] ALP [Catalytic activity/Vol] 49 U/L Normal 25-150 [facility]; [facility] Internal Medicine Work Phone: Comment on above: PATIENT NOT FASTINGP ERFORMED BY: CB [facility] Pdtivv1472 [address]Dublin [place] [id number] ALP enzyme act/vol 49 [iU]/L Normal 25-150 [facility] Internal Medicine Work Phone: Comment on above: PATIENT NOT FASTINGP ERFORMED BY: CB [facility] Ijmbiw0063 [address]Dublin [place] [id number] ALT [Catalytic activity/Vol] 18 U/L Normal 0-32 [facility]; [facility] Internal Medicine Work Phone: Comment on above: PATIENT NOT FASTINGP ERFORMED BY: CB [facility] Bwnjll3273 [address]Dublin [place] [id number] ALT enzyme act/vol 18 [iU]/L Normal 0-32 Compre [facility] Work Phone: Comment on above: PATIENT NOT FASTINGP ERFORMED BY: CALLIE [facility] Isaxxm5377 [address]Dublin [place] [id number] AST [Catalytic activity/Vol] 16 U/L Normal 0-40 [facility]; [facility] Work Phone: Comment on above: PATIENT NOT FASTINGP ERFORMED BY: CB [facility] Mvjswd1442 [address]Dublin [place] [id number] AST enzyme act/vol 16 [iU]/L Normal 0-40 [facility] Internal Medicine Work Phone: Comment on above: PATIENT NOT FASTINGP ERFORMED BY: CALLIE [facility] Jyfuvt2532 [address]Dublin [place] [id number] Bilirubin mass conc 1.2 mg/dL Normal 0.0-1.2 Compr ensive Internal Medicine Work Phone: Comment on above: PATIENT NOT FASTINGP ERFORMED BY: CB [facility] Btwhzr9227 [address]Dublin [place] [id number] Calcium mass conc 9.4 mg/dL Normal 8.7-10.2 Compreh ensive Internal Medicine Work Phone: Comment on above: PATIENT NOT FASTINGP ERFORMED BY: CALLIE [facility] Lbjkly4383 [address]Dublin [place] [id number] Chloride molar conc 104 mmol/L Normal 97-108 Compr ensive [facility] Medicine Work Phone: Comment on above: PATIENT NOT FASTINGP ERFORMED BY: CB [facility] Aieyoa4955 [address]Dublin [place] [id number] CO2 molar conc 20 mmol/L Normal 20-32 Comprehens mignon Internal Medicine Work Phone: Comment on above: PATIENT NOT FASTINGP ERFORMED BY: CB [facility] Eabmlb7359 [address]Dublin [place] [id number] Creatinine mass conc 0.84 mg/dL Normal 0.57-1.00 Comp rehensive Internal Medicine Work Phone: Comment on above: PATIENT NOT FASTINGP ERFORMED BY: CALLIE [facility] Qcbsak1222 [address]Dublin [place] [id number] GFR/1.73 sq M predicted among blacks CKD-EPI vol rate/area (S/P/Bld) 98 mL/min/1.73 Normal Comprehensiv e Internal Medicine Work Phone: Comment on above: PATIENT NOT FASTINGP ERFORMED BY: CALLIE [facility] Ijmnsv0348 [address]blin [place] [id number] GFR/1.73 sq M predicted among non-blacks CKD-EPI vol rate/area (S/P/Bld) 85 mL/min/1.73 Normal [facility] Work Phone: Comment on above: PATIENT NOT FASTINGP ERFORMED BY: CALLIE LabNicole Soppvx68[address] [facility] [id number] Globulin (S) [Mass/Vol] 2.5 g/dL Normal 1.5-4.5 [facility] Work Phone: Comment on above: PATIENT NOT FASTINGP ERFORMED BY: CALLIE [facility] Axzpgp[address] [facility] [place] [id number] Globulin Calculated mass conc (S) 2.5 g/dL Normal 1.5-4.5 [facility] Work Phone: Glucose mass conc 83 mg/dL Normal 65-99 Compreh ensive Internal Medicine Work Phone: Comment on above: PATIENT NOT FASTINGP ERFORMED BY: CALLIE [facility] Ozbjnf[address] [facility] [id number] Potassium molar conc 4.6 mmol/L Normal 3.5-5.2 Comp rehensive Internal Medicine Work Phone: Comment on above: PATIENT NOT FASTINGP ERFORMED BY: CB [facility] Czkkzv7810 [address] [facility] [place] [id number] Protein mass conc 7.1 g/dL Normal 6.0-8.5 Compreh ensive Internal Medicine Work Phone: Comment on above: PATIENT NOT FASTINGP ERFORMED BY: CALLIE [facility] Tyneva[address] [facility] [id number] Sodium molar conc 139 mmol/L Normal 134-144 Compreh ensive Internal Medicine Work Phone: Comment on above: PATIENT NOT FASTINGP ERFORMED BY: CALLIE [facility] Ovpxsp3684 [facility] [id number] Urea nitrogen mass conc 11 mg/dL Normal 6-24 [facility] Work Phone: Comment on above: PATIENT NOT FASTINGP ERFORMED BY: [facility] Izzjwn3041 [facility] [id number] Urea nitrogen/Creatinine mass ratio 13 mg/mg Normal 9-23 [facility] Work Phone: Comment on above: PATIENT NOT FASTINGP ERFORMED BY: [facility] Gsrvzo3096 [facility] [id number] TSH ([id number])Ordered By: [employer] Sales Consultant on 07-03-2012 Thyrotropin Qn 2.620 {uIU/mL} Normal 0.450-4.50 0 [facility] Work Phone: Comment on above: PATIENT NOT FASTINGP ERFORMED BY: [facility] Dtnhto5163 [facility] [id number] By: System Man ager on 03-21-2012 PAPIG3 Comment Normal [facility] Work Phone: Comment on above: NEGATIVE FOR INTRAEP ITHELIAL LESION AND MALIGNANCY.CELLULAR CHANGES ASSOCIATED WITH INFLAMMATION ARE PRESENT.THIS SPECIMEN WAS RESCREENED PART OF OUR PATIENT SERVICE TECHNICIAN PST PROGRAM.Satisfactory for evaluation. Endocervical and/or squamous metaplasticcells (endocervical component) are present.Jazz Blanc, Behavioral Health Counselor (ASCP)Fozia Jean, Supervisory Behavioral Health Counselor (ASCP)This liquid based ThinPrep(R) pap test was screened withthe use of an image guided system. The Pap smear is a s creening test designed to aid in thedetection of premalignant and malignant conditions of theuterine cervix. It is not a diagnostic procedure andshould not be used as the sole means of detecting cervicalcancer. Both false-positive and false-negative reports dooccur. . PAPIG3 Negative Normal [facility] Work Phone: Comment on above: This high-risk HPV t est detects thirteen high-risk types(16/18/31/33/35/39/45/51/52/56/58/59/68) withoutdifferentiation. .Performed at: - Lab[address] [id number] Director: Paulino Camp MD, Phone: [phone] at: = - Lab[address] [id number] Director: Paulino Camp MD, Phone: [phone] PAPIG3 . Normal [facility] Work Phone: LIPIDOrdered By: Adam Cotter [employer] on 03-14-2012 Cholesterol in HDL mass conc 61 mg/dL Normal [facility] Work Phone: Comment on above: Reference Range HDL <40 mg/dL Low HDL Cholesterol HDL >or= 60 mg/dL High HDL Cholesterol Cholesterol in LDL mass conc 158 mg/dL Abnormal 0-130 [facility] Work Phone: Cholesterol in VLDL mass conc 16 mg/dL Normal 5-40 [facility] Work Phone: Cholesterol mass conc 235 mg/dL Abnormal Com prehensive Internal Medicine Work Phone: Comment on above: <200 mg/dL Desirable 200-240 mg/dL Borderline >240 mg/dL High Risk Triglyceride mass conc 81 mg/dL Normal [facility] Work Phone: Comment on above: Serum Triglycerides Reference Interval Normal <150 mg/dL Borderline high 150 - 199 mg/dL High 200 - 499 mg/dL Very High > or = 500 mg/dL LIVEROrdered By: [employer] on 03-14-2012 Albumin mass conc 4.0 g/dL Normal 3.4-5.0 Compreh ensive Internal Medicine Work Phone: ALP enzyme act/vol 48 U/L Abnormal 50-136 Compre hensive Internal Medicine Work Phone: ALT enzyme act/vol 36 U/L Normal 12-78 Compre [facility] Work Phone: AST enzyme act/vol 20 U/L Normal 15-37 Compre hensive Internal Medicine Work Phone: Bilirubin mass conc 0.90 mg/dL Normal 0.00-1.00 Compr ehensive Internal Medicine Work Phone: Protein mass conc 7.5 g/dL Normal 6.4-8.2 Compreh ensive Internal Medicine Work Phone: LIVER 0.20 mg/dL Normal 0.00-0.30 [facility] Work Phone: CHEST, PA AND LATERALOrdered By: Bread Wrapping Machine Feeder on 09-29-2011 CHEST, PA AND LATERAL See Note Normal Com prehensive Internal Medicine Work Phone: Comment on above: PROCEDURE: X-RAY [facility] REASON FOR EXAM: Female, 45 years old. Chest pain and chest tightness. TECHNIQUE: PA and lateral views of the chest. COMPARISON: Comparison is made with prior study dated March 04, 2010. FINDINGS: The lungs are hyper expanded, with flattening of the hemidiaphragms.Thereis no demonstrated parenchymal abnormality. There is no demonstratedpleural abnormality. Normal heart and pericardium. Normal mediastinum and erik. Normal visualized pulmonary arteries.Normalvisualized aortic arch and descending thoracic aorta. Normal visualized thoracic spine. Normal visualized ribs, clavicles, andshoulders. There is no demonstrated abnormality of the visualized soft tissuestructures of the upper abdomen. IMPRESSION:Hyperinflation. To consult with a radiologist regarding this report, please call our [id number] line @ Dict[employer] on 09/29/11 1212 by Luz Marina Mario MDscribed on 09/29/11 1255 by ITS IMPORTSign by Gene Mario MD on 09/29/11 1256 Sign by: Gene Mario MD C-REACTIVE PROTOrdered By: Austin [employer] Sales Consultant on 09-20-2011 CRP mass conc 4.91 mg/L Abnormal 0.0-3.0 Comprehensi ve Internal Medicine Work Phone: Comment on above: C-Reactive Protein ( CRP) provides useful information for thediagnosis, therapy and monitoring of inflammatory processesand associated diseases. For the evaluation of Relative Riskfor Cardiovascular Disease, a High Sensitivity CRP (HSCRP)should be ordered. COMP METABOLICOrdered By: [employer] Sales Consultant on 09-20-2011 Albumin mass conc 4.0 g/dL Normal 3.4-5.0 [facility] ensive Internal Medicine Work Phone: Albumin/Globulin mass ratio 1.3 {RATIO} Normal 0.9-2.4 [facility] Internal Medicine Work Phone: ALP enzyme act/vol 55 U/L Normal 50-136 [facility] Internal Medicine Work Phone: ALT enzyme act/vol 37 U/L Normal 12-78 [facility] Internal Medicine Work Phone: Anion gap 3 molar conc 7 mmol/L Normal 5-15 [facility] Internal Medicine Work Phone: AST enzyme act/vol 22 U/L Normal 15-37 [facility] Internal Medicine Work Phone: Bilirubin mass conc 1.00 mg/dL Normal 0.00-1.00 Compr [facility] Internal Medicine Work Phone: Calcium mass conc 8.6 mg/dL Normal 8.5-10.1 [facility] ensive Internal Medicine Work Phone: Chloride molar conc 105 mmol/L Normal 98-107 [facility] Internal Medicine Work Phone: CO2 molar conc 25.0 mmol/L Normal 21.0-32.0 [facility] Work Phone: Creatinine mass conc 0.7 mg/dL Normal 0.6-1.0 Comp [facility] Internal Medicine Work Phone: GFR/1.73 sq M predicted among blacks MDRD vol rate/area (S/P/Bld) 118 mL/min/{1.73_m2} Normal [facility]pre[facility] Work Phone: GFR/1.73 sq M.predicted MDRD vol rate/area 97 mL/min/{1.73_m2} Normal Comprehensiv e Internal Medicine Work Phone: Globulin Calculated mass conc (S) 3.1 g/dL Normal 2.7-4.2 [facility] Work Phone: Glucose mass conc 92 mg/dL Normal 70-110 Compreh ensive Internal Medicine Work Phone: Potassium molar conc 3.9 mmol/L Normal 3.5-5.1 Comp rehensive Internal Medicine Work Phone: Protein mass conc 7.1 g/dL Normal 6.4-8.2 Compreh ensive Internal Medicine Work Phone: Sodium molar conc 137 mmol/L Normal 136-145 Compreh ensive Internal Medicine Work Phone: Urea nitrogen mass conc 11 mg/dL Normal 7-18 [facility] Work Phone: Urea nitrogen/Creatinine mass ratio 15.7 {RATIO} Normal 10-20 [facility] Work Phone: ESROrdered By: Ketera r on 09-20-2011 ESR Velocity (Bld) 8 mm/h Normal 0-20 Compre hensive Internal Medicine Work Phone: LIPIDOrdered By: System Cyndee melvin on 09-20-2011 Cholesterol in HDL mass conc 66 mg/dL Normal [facility] Work Phone: Comment on above: Reference Range HDL <40 mg/dL Low HDL Cholesterol HDL >or= 60 mg/dL High HDL Cholesterol Cholesterol in LDL mass conc 147 mg/dL Abnormal 0-130 [facility] Work Phone: Cholesterol in VLDL mass conc 21 mg/dL Normal 5-40 [facility] Work Phone: Cholesterol mass conc 234 mg/dL Abnormal Com prehensive Internal Medicine Work Phone: Comment on above: <200 mg/dL Desirable 200-240 mg/dL Borderline >240 mg/dL High Risk Triglyceride mass conc 104 mg/dL Normal [facility] Work Phone: Comment on above: Serum Triglycerides Reference Interval Normal <150 mg/dL Borderline high 150 - 199 mg/dL High 200 - 499 mg/dL Very High > or = 500 mg/dL TSHOrdered By: Ketera r on 09-20-2011 Thyrotropin Qn 3.42 {uIU/mL} Normal 0.358-3.74 Compreh ensive Internal Medicine Work Phone: C-REACTIVE PROTOrdered By: Austin [employer] Sales Consultant on 02-28-2011 CRP mass conc 9.32 mg/L Abnormal 0.0-3.0 Comprehensi ve Internal Medicine Work Phone: Comment on above: C-Reactive Protein ( CRP) provides useful information for thediagnosis, therapy and monitoring of inflammatory processesand associated diseases. For the evaluation of Relative Riskfor Cardiovascular Disease, a High Sensitivity CRP (HSCRP)should be ordered. CBCD,SMEAR DIFFOrdered By: Austin [employer] Sales Consultant on 02-28-2011 Band form neutrophils/100 WBC Manual cnt (Bld) 1 % Normal 0-5 [facility] Internal Medicine Work Phone: Eosinophils/100 WBC Auto (Bld) 2 % Normal 0-5 [facility] Internal Medicine Work Phone: Erythrocyte distribution width Auto Ratio (RBC) 14.5 % Normal 11.6-14.6 [facility] Internal Medicine Work Phone: Hematocrit Auto Volume Fraction (Bld) 41.3 % Normal 37-47 [facility] Work Phone: Hemoglobin mass conc (Bld) 13.7 g/dL Normal 12.0-16.0 [facility] Internal Medicine Work Phone: Lymphocytes/100 WBC Auto (Bld) 29 % Normal 19-41 [facility] Internal Medicine Work Phone: MCH Auto Entitic mass (RBC) 30.6 pg Normal 27.0-32.0 [facility] Internal Medicine Work Phone: MCHC Auto mass conc (RBC) 33.2 g/dL Normal 32-36 [facility] Internal Medicine Work Phone: MCV Auto Entitic volume (RBC) 92.2 fL Normal 81-99 [facility] Internal Medicine Work Phone: Monocytes/100 WBC Auto (Bld) 4 % Normal 0-10 [facility] Internal Medicine Work Phone: Neutrophils Auto #/vol (Bld) 5.4 3/uL Normal 2.0-7.7 [facility] Internal Medicine Work Phone: Platelets Auto #/vol (Bld) 284 10*3/uL Normal 150-450 [facility] Internal Medicine Work Phone: RBC Auto #/vol (Bld) 4.47 {M/mm3} Normal 4.2-5.4 [facility] Internal Medicine Work Phone: WBC Auto #/vol (Bld) 8.3 10*3/uL Normal 4.4-11.0 [facility] Internal Medicine Work Phone: CBCD,SMEAR DIFF SeeNote Normal [facility] Internal Medicine Work Phone: Comment on above: Result: NORM C+C Result: ADEQUATE CBCD,SMEAR DIFF 100 1 Normal [facility] Internal Medicine Work Phone: CBCD,SMEAR DIFF 64 % Normal 47-70 [facility] Internal Medicine Work Phone: ESROrdered By: System Mailana r on 02-28-2011 ESR Velocity (Bld) 38 mm/h Abnormal 0-20 [facility] Internal Medicine Work Phone: LIPIDOrdered By: System [employer] on 02-28-2011 Cholesterol in HDL mass conc 49 mg/dL Normal [facility] Internal Medicine Work Phone: Comment on above: Reference Range HDL <40 mg/dL Low HDL Cholesterol HDL >or= 60 mg/dL High HDL Cholesterol Cholesterol in LDL mass conc 184 mg/dL Abnormal 0-130 [facility] Internal Medicine Work Phone: Cholesterol in VLDL mass conc 20 mg/dL Normal 5-40 [facility] Internal Medicine Work Phone: Cholesterol mass conc 253 mg/dL Abnormal [facility] Internal Medicine Work Phone: Comment on above: <200 mg/dL Desirable 200-240 mg/dL Borderline >240 mg/dL High Risk Triglyceride mass conc 99 mg/dL Normal [facility] Internal Medicine Work Phone: Comment on above: Serum Triglycerides Reference Interval Normal <150 mg/dL Borderline high 150 - 199 mg/dL High 200 - 499 mg/dL Very High > or = 500 mg/dL LIVEROrdered By: System [employer] on 02-28-2011 Albumin mass conc 3.8 g/dL Normal 3.4-5.0 Com[facility] ensive Internal Medicine Work Phone: ALP enzyme act/vol 63 U/L Normal 50-136 Compre hensive Internal Medicine Work Phone: ALT enzyme act/vol 48 U/L Normal 12-78 [facility] Work Phone: AST enzyme act/vol 23 U/L Normal 15-37 [facility] Work Phone: Bilirubin mass conc 1.20 mg/dL Abnormal 0.00-1.00 Compr ehensive Internal Medicine Work Phone: Bilirubin.direct mass conc 0.27 mg/dL Normal 0.00-0.30 [facility] Work Phone: Protein mass conc 7.8 g/dL Normal 6.4-8.2 Com[facility] ens[facility] Internal Medicine Work Phone: TSHOrdered By: System Mailana r on 02-28-2011 Thyrotropin Qn 2.81 {uIU/mL} Normal 0.358-3.74 Compre[facility] ensive Internal Medicine Work Phone: CULTURE, NOSEOrdered By: Chloe tem Energy Sales Consultant on 06-14-2010 Microscopic observation [Identifier] in Unspecified specimen by Gram stain See Note Normal [facility] Work Phone: Comment on above: GRAM STAIN 1+ EPITHE LIAL CELLS 1+ GRAM POSITIVE COCCI 1+ GRAM POSITIVE COCCI IN CHAINS CULTURE, NOSE See Note Normal Comprehensi ve Internal Medicine Work Phone: Comment on above: Mixed normal respira tory deni. No Streptococcuspneumoniae, beta-hemolytic Streptococcus, Haemophilusor Staphylococcus aureus isolated. Rapid Strep Test, Office ([id number])Ordered By: Mary Carlisle on 06-14-2010 S. pyogenes Ag EIA Ql (Throat) Negative Normal [facility]; [facility] Work Phone: Comment on above: neg S. pyogenes Ag IA Ql (Unsp spec) Negative Normal [facility] Work Phone: Comment on above: neg KATHRYN DIR SEMI-QLOrdered By: S ystem [employer] Sales Consultant on 03-09-2010 KATHRYN DIR SEMI-QL 18 AU/mL [facility] Work Phone: BCOrdered By: [employer] Feeder on 03-09-2010 BC No growth in 5 days. Normal Comp rehensive Internal Medicine Work Phone: COMP METABOLICOrdered By: Sy stem [employer] Sales Consultant on 03-09-2010 Albumin mass conc 4.1 g/dL Normal 3.4-5.0 [facility] Work Phone: Albumin/Globulin mass ratio 1.1 {RATIO} Normal 0.9-2.4 [facility] Internal Medicine Work Phone: ALP enzyme act/vol 70 U/L Normal 50-136 [facility] Internal Medicine Work Phone: ALT enzyme act/vol 74 U/L Normal 12-78 [facility] Internal Medicine Work Phone: Anion gap 3 molar conc 9 mmol/L Normal 5-15 [facility] Internal Medicine Work Phone: AST enzyme act/vol 54 U/L Abnormal 15-37 [facility] Internal Medicine Work Phone: Bilirubin mass conc 0.40 mg/dL Normal 0.00-1.00 [facility] Internal Medicine Work Phone: Calcium mass conc 9.1 mg/dL Normal 8.5-10.1 [facility] Internal Medicine Work Phone: Chloride molar conc 104 mmol/L Normal 98-107 Compr [facility] Internal Medicine Work Phone: CO2 molar conc 23.0 mmol/L Normal 21.0-32.0 [facility] Internal Medicine Work Phone: Creatinine mass conc 0.7 mg/dL Normal 0.6-1.0 [facility] Internal Medicine Work Phone: GFR/1.73 sq M predicted among blacks MDRD vol rate/area (S/P/Bld) 119 mL/min/{1.73_m2} Normal [facility] Work Phone: GFR/1.73 sq M.predicted MDRD vol rate/area 98 mL/min/{1.73_m2} Normal Comprehensiv e Internal Medicine Work Phone: Globulin Calculated mass conc (S) 3.6 g/dL Normal 2.7-4.2 [facility] Work Phone: Glucose mass conc 110 mg/dL Normal 70-110 Compreh ensive Internal Medicine Work Phone: Comment on above: Fasting Glucose resu lt from 110 to <126 mg/dLsuggests IMPAIRED HOMEOSTASIS per A.D.A. criteria. Potassium molar conc 3.8 mmol/L Normal 3.5-5.1 Comp rehensive Internal Medicine Work Phone: Protein mass conc 7.7 g/dL Normal 6.4-8.2 Compre[facility] ensive Internal Medicine Work Phone: Sodium molar conc 136 mmol/L Normal 136-145 Compre[facility] ens[facility] Internal Medicine Work Phone: Urea nitrogen mass conc 12 mg/dL Normal 7-18 [facility] Work Phone: Urea nitrogen/Creatinine mass ratio 17.1 {RATIO} Normal 10-20 [facility] Work Phone: CULTURE, URINEOrdered By: [email or web address] stem [employer] Sales Consultant on 03-09-2010 Bacteria identified Cx Nom (U) See Note Normal [facility] Work Phone: Comment on above: Culture exhibits no growth. LDHOrdered By: System Manage r on 03-09-2010 LDH enzyme act/vol 182 U/L Normal 100-190 Compre hensive Internal Medicine Work Phone: RHEUMATOID FACOrdered By: Sy stem [employer] Sales Consultant on 03-09-2010 Rheumatoid factor Qn [IU]/mL Normal Comp rehensive Internal Medicine Work Phone: LIVER/SPLEEN SCAN WITH FLOWO rdered By: Bread W[employer]pping Machine Feeder on 03-04-2010 LIVER/SPLEEN SCAN WITH FLOW See Note Normal [facility] Work Phone: Comment on above: Exam Number: [id number] CLINICAL:This is a 44-year-old female patient with history of low plateletcount. EXAMINATION:LIVER SPLEEN SCAN TECHNIQUE:5.5 mCi of technetium labeled sulfur colloid were givenintravenously. Multiple images of the right upper quadrant wereobtained. COMPARISON:None. FINDINGS:There is no evidence of hepatosplenomegaly. There is homogeneousuptake. No significant abnormality is seen. IMPRESSION:Normal examination. Reported By: GENE MARIO Exam Number: [id number] CLINICAL:44 year old female for right thyroid nodule. ULTRASOUND THYROID TECHNIQUE:Duplex sonography. COMPARISON:March 31, 2009 FINDINGS:The right thyroid lobe measures 5.6 x 2.0 x 1.7 cm. There is acomplex 2.0 x 1.5 x 1.0 cm nodule with cluster of calcifications,measuring 6 x 4 x 4 mm. There is no significant interval change.Papillary carcinoma cannot be excluded. Normal size, contour and echotexture of the left lobe of the thyroidgland, measuring 4.5 x 1.3 x 1.3 cm. There is no discrete solid orcystic lesion. Normal thyroid isthmus. There is no perithyroid pathology. 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 Recommendfine needle aspiration biopsy. N.B. : The above information has been verbally conveyed for Christina Vital by Grant Burnette M.D. to Dr. Gross, covering physician,on 03/06/2010 18:10:16 (ET), following the [facility] policy forreporting of findings. Reported By: EDILBERTO BURNETTE DR. Exam Number: [id number] CLINICAL:This is a 44-year-old female patient with history of a leukocytosis. X-RAY EXAMINATION - CHEST TECHNIQUE:PA and lateral views of the chest. COMPARISON:None. FINDINGS:Normal visualized trachea and bronchi. The lungs are well expanded. Normal lungs. There are no pulmonary infiltrates. There arescattered small pulmonary calcifications consistent with oldgranulomatous disease. Normal pleura. Normal heart. Normal pulmonary arteries. Normal visualized aortic arch and descending thoracic aorta. Normal mediastinum. Normal hilar regions. Normal chest wall structures. The patient has a pectus excavatumdeformity. Normal osseous structures. Unremarkable upper abdomen. IMPRESSION:No pulmonary infiltrates. The patient has a pectus excavatum deformity. Reported By: GENE MARIO C-REACTIVE PROTOrdered By: S [facility] Energy Sales Consultant on 02-21-2010 CRP mass conc 14.60 mg/L Abnormal 0.0-3.0 Comprehensi Internal Medicine Work Phone: Comment on above: C-Reactive Protein ( CRP) provides useful information for thediagnosis, therapy and monitoring of inflammatory processesand associated diseases. For the evaluation of Relative Riskfor Cardiovascular Disease, a High Sensitivity CRP (HSCRP)should be ordered. CBCD,SMEAR DIFFOrdered By: [place] [facility] Energy Sales Consultant on 02-21-2010 Band form neutrophils/100 WBC Manual cnt (Bld) 1 % Normal 0-5 [facility] Internal Medicine Work Phone: Eosinophils/100 WBC Auto (Bld) 1 % Normal 0-5 [facility] Internal Medicine Work Phone: Erythrocyte distribution width Auto Ratio (RBC) 15.1 % Abnormal 11.6-14.6 [facility] Internal Medicine Work Phone: Hematocrit Auto Volume Fraction (Bld) 42.7 % Normal 37-47 [facility] Work Phone: Hemoglobin mass conc (Bld) 14.3 g/dL Normal 12.0-16.0 [facility] Internal Medicine Work Phone: Lymphocytes/100 WBC Auto (Bld) 24 % Normal 19-41 [facility] Internal Medicine Work Phone: MCH Auto Entitic mass (RBC) 30.7 pg Normal 27.0-32.0 [facility] Internal Medicine Work Phone: MCHC Auto mass conc (RBC) 33.4 g/dL Normal 32-36 [facility] Internal Medicine Work Phone: MCV Auto Entitic volume (RBC) 91.9 fL Normal 81-99 [facility] Internal Medicine Work Phone: Monocytes/100 WBC Auto (Bld) 8 % Normal 0-10 [facility] Internal Medicine Work Phone: Neutrophils Auto #/vol (Bld) 13.2 3/uL Abnormal 2.0-7.7 [facility] Internal Medicine Work Phone: Platelets Auto #/vol (Bld) 612 10*3/uL Abnormal 150-450 [facility] Internal Medicine Work Phone: RBC Auto #/vol (Bld) 4.64 {M/mm3} Normal 4.2-5.4 [facility] Internal Medicine Work Phone: WBC Auto #/vol (Bld) 18.3 10*3/uL Abnormal 4.4-11.0 [facility] Internal Medicine Work Phone: CBCD,SMEAR DIFF SeeNote Normal [facility] Internal Medicine Work Phone: Comment on above: Result: ReviewedNeut rophilic leukocytosis with left shift.Mild thrombocytopenia.Clinical correlation suggested.Dirk Browne M.D. 02/21/10 Result: NORM C+C CBCD,SMEAR DIFF 1 % Normal 0-1 [facility] Internal Medicine Work Phone: CBCD,SMEAR DIFF 100 1 Normal [facility] Internal Medicine Work Phone: CBCD,SMEAR DIFF MOD INC Normal [facility] Internal Medicine Work Phone: CBCD,SMEAR DIFF 65 % Normal 47-70 [facility] Medicine Work Phone: ESROrdered By: System Manage r on 02-21-2010 ESR Velocity (Bld) 12 mm/h Normal 0-20 [facility] Internal Medicine Work Phone: C-REACTIVE PROTOrdered By: Austin [employer] Sales Consultant on 01-04-2010 CRP mass conc 11.50 mg/L Abnormal 0.0-3.0 [facility] Internal Medicine Work Phone: Comment on above: C-Reactive Protein ( CRP) provides useful information for thediagnosis, therapy and monitoring of inflammatory processesand associated diseases. For the evaluation of Relative Riskfor Cardiovascular Disease, a High Sensitivity CRP (HSCRP)should be ordered. CBCD,SMEAR DIFFOrdered By: Asutin [employer] Sales Consultant on 01-04-2010 Basophils/100 WBC Auto (Bld) 1 % Normal 0-1 [facility] Internal Medicine Work Phone: Eosinophils/100 WBC Auto (Bld) 6 % Abnormal 0-5 [facility] Internal Medicine Work Phone: Erythrocyte distribution width Auto Ratio (RBC) 14.3 % Normal 11.6-14.6 [facility] Internal Medicine Work Phone: Hematocrit Auto Volume Fraction (Bld) 42.9 % Normal 37-47 [facility] Internal Medicine Work Phone: Hemoglobin mass conc (Bld) 14.3 g/dL Normal 12.0-16.0 [facility] Internal Medicine Work Phone: Lymphocytes/100 WBC Auto (Bld) 25 % Normal 19-41 [facility] Internal Medicine Work Phone: MCH Auto Entitic mass (RBC) 30.1 pg Normal 27.0-32.0 [facility] Internal Medicine Work Phone: MCHC Auto mass conc (RBC) 33.3 g/dL Normal 32-36 [facility] Internal Medicine Work Phone: MCV Auto Entitic volume (RBC) 90.4 fL Normal 81-99 [facility] Internal Medicine Work Phone: Neutrophils Auto #/vol (Bld) 8.0 3/uL Abnormal 2.0-7.7 [facility] Internal Medicine Work Phone: Platelets Auto #/vol (Bld) 558 10*3/uL Abnormal 150-450 [facility] Internal Medicine Work Phone: RBC Auto #/vol (Bld) 4.74 {M/mm3} Normal 4.2-5.4 [facility] Internal [facility] Work Phone: WBC Auto #/vol (Bld) 12.0 10*3/uL Abnormal 4.4-11.0 [facility] Internal [facility] Work Phone: CBCD,SMEAR DIFF [employer] INC Normal [facility] Internal [facility] Work Phone: CBCD,SMEAR DIFF SeeNote Normal [facility] Internal Medicine Work Phone: Comment on above: Result: NORM C+C CBCD,SMEAR DIFF 100 1 Normal [facility] Internal Medicine Work Phone: CBCD,SMEAR DIFF 68 % Normal 47-70 [facility] Internal Medicine Work Phone: LIPIDOrdered By: Adam charles on 01-04-2010 Cholesterol in HDL mass conc 40 mg/dL Normal [facility] Work Phone: Comment on above: Reference RangeHDL < 40 mg/dL Low HDL CholesterolHDL >or= 60 mg/dL High HDL Cholesterol Cholesterol in LDL mass conc 138 mg/dL Abnormal 0-130 [facility] Work Phone: Cholesterol in VLDL mass conc 40 mg/dL Normal 5-40 [facility] Work Phone: Cholesterol mass conc 218 mg/dL Abnormal Com prehensive Internal Medicine Work Phone: Comment on above: <200 mg/dL Desirable 200-240 mg/dL Borderline>240 mg/dL High Risk Triglyceride mass conc 201 mg/dL Abnormal [facility] Work Phone: Comment on above: Serum Triglycerides Reference IntervalNormal <150 mg/dLBorderline high 150 - 199 mg/dLHigh 200 - 499 mg/dLVery High > or = 500 mg/dL LIVEROrdered By: Adam charles on 01-04-2010 Albumin mass conc 3.5 g/dL Normal 3.4-5.0 Compreh ensive Internal Medicine Work Phone: ALP enzyme act/vol 69 U/L Normal 50-136 [facility] Work Phone: ALT enzyme act/vol 22 U/L Normal 12-78 [facility] Internal Medicine Work Phone: AST enzyme act/vol 13 U/L Abnormal 15-37 [facility] Internal Medicine Work Phone: Bilirubin mass conc 0.40 mg/dL Normal 0.00-1.00 Compr [facility] Internal Medicine Work Phone: Bilirubin.direct mass conc 0.11 mg/dL Normal 0.00-0.30 [facility] Internal Medicine Work Phone: Protein mass conc 7.3 g/dL Normal 6.4-8.2 Compreh ensive Internal Medicine Work Phone: EBV [id number] By: Austin Garcia on 12-10-2009 EBV [id number] > 8.0 Abnormal 0.0-0.8 [facility] Work Phone: Comment on above: Negative <0.9Equivoc al 0.9 - 1.0Positive >1.0Performed at: [address] [id number] Director: Bhargavi Cunningham MD EBV [id number] < 0.2 Normal [facility] Work Phone: Comment on above: Negative <0.9Equivoc al 0.9 - 1.0Positive >1.0 C-REACTIVE PROTOrdered By: Austin [employer] Sales Consultant on 08-31-2009 CRP mass conc 18.00 mg/L Abnormal 0.0-3.0 [facility] Internal Medicine Work Phone: Comment on above: C-Reactive Protein ( CRP) provides useful information for thediagnosis, therapy and monitoring of inflammatory processesand associated diseases. For the evaluation of Relative Riskfor Cardiovascular Disease, a High Sensitivity CRP (HSCRP)should be ordered. CBCD,SMEAR DIFFOrdered By: Austin [employer]stem [employer] Sales Consultant on 08-31-2009 Basophils/100 WBC Auto (Bld) 1 % Normal 0-1 [facility] Internal Medicine Work Phone: Eosinophils/100 WBC Auto (Bld) 2 % Normal 0-5 [facility] Work Phone: Erythrocyte distribution width Auto Ratio (RBC) 14.3 % Normal 11.6-14.6 [facility] Internal Medicine Work Phone: Hematocrit Auto Volume Fraction (Bld) 41.3 % Normal 37-47 [facility] Internal Medicine Work Phone: Hemoglobin mass conc (Bld) 13.7 g/dL Normal 12.0-16.0 [facility] Internal Medicine Work Phone: Lymphocytes/100 WBC Auto (Bld) 34 % Normal 19-41 [facility] Work Phone: MCH Auto Entitic mass (RBC) 29.7 pg Normal 27.0-32.0 [facility] Internal Medicine Work Phone: MCHC Auto mass conc (RBC) 33.1 g/dL Normal 32-36 [facility] Work Phone: MCV Auto Entitic volume (RBC) 89.8 fL Normal 81-99 [facility] Internal Medicine Work Phone: Monocytes/100 WBC Auto (Bld) 2 % Normal 0-10 [facility] Internal Medicine Work Phone: Platelets Auto #/vol (Bld) 481 10*3/uL Abnormal 150-450 [facility] Internal Medicine Work Phone: RBC Auto #/vol (Bld) 4.60 {M/mm3} Normal 4.2-5.4 [facility] Internal Medicine Work Phone: WBC Auto #/vol (Bld) 10.7 10*3/uL Normal 4.4-11.0 [facility] Internal Medicine Work Phone: CBCD,SMEAR DIFF 100 1 Normal [facility] Work Phone: CBCD,SMEAR DIFF SeeNote Normal [facility] Work Phone: Comment on above: Result: ADEQUATE Result: NORM C+C CBCD,SMEAR DIFF 61 % Normal 47-70 [facility] Work Phone: LIPIDOrdered By: System [employer] on 08-31-2009 Cholesterol in HDL mass conc 45 mg/dL Normal [facility] Internal Medicine Work Phone: Comment on above: Reference RangeHDL < 40 mg/dL Low HDL CholesterolHDL >or= 60 mg/dL High HDL Cholesterol Cholesterol in LDL mass conc 98 mg/dL Normal 0-130 [facility] Internal Medicine Work Phone: Cholesterol in VLDL mass conc 41 mg/dL Abnormal 5-40 [facility] Internal Medicine Work Phone: Cholesterol mass conc 184 mg/dL Normal [facility] Internal Medicine Work Phone: Comment on above: <200 mg/dL Desirable 200-240 mg/dL Borderline>240 mg/dL High Risk Triglyceride mass conc 207 mg/dL Abnormal [facility] Internal Medicine Work Phone: Comment on above: Serum Triglycerides Reference IntervalNormal <150 mg/dLBorderline high 150 - 199 mg/dLHigh 200 - 499 mg/dLVery High > or = 500 mg/dL LIVEROrdered By: System Cyndee melvin on 08-31-2009 Albumin mass conc 3.2 g/dL Abnormal 3.4-5.0 Compreh ensive Internal Medicine Work Phone: ALP enzyme act/vol 55 U/L Normal 50-136 [facility] Work Phone: ALT enzyme act/vol 14 U/L Normal 12-78 [facility] Internal Medicine Work Phone: AST enzyme act/vol 9 U/L Abnormal 15-37 [facility] Work Phone: Bilirubin mass conc 0.30 mg/dL Normal 0.00-1.00 Compr ensive Internal Medicine Work Phone: Bilirubin.direct mass conc 0.08 mg/dL Normal 0.00-0.30 [facility] Work Phone: Protein mass conc 6.9 g/dL Normal 6.4-8.2 Compreh ensive Internal Medicine Work Phone: TSHOrdered By: System Manage r on 08-31-2009 Thyrotropin Qn 2.16 {uIU/mL} Normal 0.358-3.74 Compreh ensive Internal Medicine Work Phone: THYROID (HP)Ordered By: [employer] em [employer] Sales Consultant on 03-31-2009 THYROID (HP) See Note Normal [facility] e Internal Medicine Work Phone: Comment on above: Exam Number: [id number] CLINICAL:Thyromegaly. ULTRASOUND THYROID COMPARISON:None. FINDINGS: Images and technologist worksheet are submitted for interpretation. The right thyroid lobe is prominent, measuring 5.3 x 1.4 x 2.0 cm.. There is a heterogeneous, solid hypoechoic nodule in the mid to upper pole of the right thyroid lobe, that measures 2.0 x 1.2 x 1.8 cm and contains calcification inferiorly. Normal size, contour and echotexture of the left lobe of the thyroid gland, measuring 4.5 x 1.1 x 1.3 cm. There is no discrete solid or cystic lesion. Normal thyroid isthmus. There is no perithyroidal pathology. IMPRESSION:Solid heterogeneous nodule in the mid to upper pole of the right thyroid lobe that measures 2.0 x 1.2 x 1.8 cm. Nuclear medicine thyroid scan may be useful for further evaluation, if clinically warranted. Reported By: Christina RODRIGUEZ-Rios [id number] By: Talisha em Energy Sales Consultant on 03-29-2009 Nuclear Ab Ql (S) SeeNote Normal Compreh ensive Internal Medicine Work Phone: Comment on above: Result: Negative C-REACTIVE PROTOrdered By: Austin ervintem [employer] Sales Consultant on 03-29-2009 CRP mass conc 11.80 mg/L Abnormal 0.0-3.0 Comprehensi Internal Medicine Work Phone: Comment on above: C-Reactive Protein ( CRP) provides useful information for thediagnosis, therapy and monitoring of inflammatory processesand associated diseases. For the evaluation of Relative Riskfor Cardiovascular Disease, a High Sensitivity CRP (HSCRP)should be ordered. CBCD,SMEAR DIFFOrdered By: Austin valdesm Energy Sales Consultant on 03-29-2009 Eosinophils/100 WBC Auto (Bld) 2 % Normal 0-5 [facility] Internal Medicine Work Phone: Erythrocyte distribution width Auto Ratio (RBC) 13.8 % Normal 11.6-14.6 [facility] Work Phone: Hematocrit Auto Volume Fraction (Bld) 44.9 % Normal 37-47 [facility] Work Phone: Hemoglobin mass conc (Bld) 14.8 g/dL Normal 12.0-16.0 [facility] Internal Medicine Work Phone: Lymphocytes/100 WBC Auto (Bld) 22 % Normal 19-41 [facility] Work Phone: MCH Auto Entitic mass (RBC) 29.7 pg Normal 27.0-32.0 [facility] Work Phone: MCHC Auto mass conc (RBC) 32.9 g/dL Normal 32-36 [facility] Internal Medicine Work Phone: MCV Auto Entitic volume (RBC) 90.1 fL Normal 81-99 [facility] Work Phone: Monocytes/100 WBC Auto (Bld) 5 % Normal 0-10 [facility] Internal Medicine Work Phone: Platelets Auto #/vol (Bld) 448 10*3/uL Normal 150-450 [facility] Internal Medicine Work Phone: RBC Auto #/vol (Bld) 4.98 {M/mm3} Normal 4.2-5.4 [facility] Internal Medicine Work Phone: WBC Auto #/vol (Bld) 11.2 10*3/uL Abnormal 4.4-11.0 [facility] Internal Medicine Work Phone: CBCD,SMEAR DIFF SeeNote Normal [facility] Work Phone: Comment on above: Result: NORM C+C Result: ADEQUATE CBCD,SMEAR DIFF 100 1 Normal [facility] Work Phone: CBCD,SMEAR DIFF 2 % Abnormal 0-1 [facility] Work Phone: CBCD,SMEAR DIFF 69 % Normal 47-70 [facility] Work Phone: COMP METABOLICOrdered By: González stem [employer] Sales Consultant on 03-29-2009 Albumin mass conc 4.1 g/dL Normal 3.4-5.0 Compre[facility] Internal Medicine Work Phone: Albumin/Globulin mass ratio 1.1 {RATIO} Normal 0.9-2.4 [facility] Internal Medicine Work Phone: ALP enzyme act/vol 81 U/L Normal 50-136 [facility] Internal Medicine Work Phone: ALT enzyme act/vol 26 U/L Abnormal 30-65 [facility] Internal Medicine Work Phone: Anion gap 3 molar conc 8 mmol/L Normal 5-15 [facility] Internal Medicine Work Phone: AST enzyme act/vol 10 U/L Abnormal 15-37 [facility] Internal Medicine Work Phone: Bilirubin mass conc 0.50 mg/dL Normal 0.00-1.00 Compr [facility] Internal Medicine Work Phone: Calcium mass conc 9.3 mg/dL Normal 8.5-10.1 [facility]pre[facility] Internal Medicine Work Phone: Chloride molar conc 103 mmol/L Normal 98-107 Compr ehensive Internal Medicine Work Phone: CO2 molar conc 25.0 mmol/L Normal 21.0-32.0 Comprehen sive Internal Medicine Work Phone: Creatinine mass conc 0.9 mg/dL Normal 0.6-1.0 Comp rehensive Internal Medicine Work Phone: GFR/1.73 sq M predicted among blacks MDRD vol rate/area (S/P/Bld) 88 mL/min/{1.73_m2} Normal Comprehe nsive Internal Medicine Work Phone: GFR/1.73 sq M.predicted MDRD vol rate/area 73 mL/min/{1.73_m2} Normal Comprehensiv e Internal Medicine Work Phone: Globulin Calculated mass conc (S) 3.6 g/dL Normal 2.7-4.2 [facility] Work Phone: Glucose mass conc 73 mg/dL Normal 70-110 [facility] Work Phone: Potassium molar conc 4.2 mmol/L Normal 3.5-5.1 [facility] rehens[facility] Work Phone: Protein mass conc 7.7 g/dL Normal 6.4-8.2 [facility] Work Phone: Sodium molar conc 136 mmol/L Normal 136-145 [facility] Work Phone: Urea nitrogen mass conc 13 mg/dL Normal 7-18 [facility] Work Phone: Urea nitrogen/Creatinine mass ratio 14.4 {RATIO} Normal 10-20 [facility] Work Phone: ESROrdered By: System Manage r on 03-29-2009 ESR Velocity (Bld) 4 mm/h Normal 0-20 [facility]pre [facility] Work Phone: FREE [id number] By: System Valencia desai on 03-29-2009 T3 free mass conc 3.2 pg/mL Normal 2.18-3.98 [facility] Work Phone: LDHOrdered By: System Mailana r on 03-29-2009 LDH enzyme act/vol 140 U/L Normal 100-190 [facility]pre hens[facility] Work Phone: LIPIDOrdered By: System Cyndee melvin on 03-29-2009 Cholesterol in HDL mass conc 57 mg/dL Normal [facility] Work Phone: Comment on above: Reference Range HDL <40 mg/dL Low HDL Cholesterol HDL >or= 60 mg/dL High HDL Cholesterol Cholesterol in LDL mass conc 151 mg/dL Abnormal 0-130 [facility] Work Phone: Cholesterol in VLDL mass conc 42 mg/dL Abnormal 5-40 [facility] Work Phone: Cholesterol mass conc 250 mg/dL Abnormal Com prehensive [facility] Work Phone: Comment on above: <200 mg/dL Desirable 200-240 mg/dL Borderline >240 mg/dL High Risk Triglyceride mass conc 210 mg/dL Abnormal [facility] Work Phone: Comment on above: Serum Triglycerides Reference Interval Normal <150 mg/dL Borderline high 150 - 199 mg/dL High 200 - 499 mg/dL Very High > or = 500 mg/dL PROLACTIN [id number] By: [employer] Sales Consultant on 03-29-2009 Prolactin mass conc 8.0 ng/mL Normal 2.8-29.2 Compr e[facility] Work Phone: Comment on above: Age Male Female 0- 1 mon. 3.7 - 81.2 0.3 - 95.0 1-12 mons. 0.3 - 28.9 0.2 - 29.9 1- 3 yrs. 2.3 - 13.2 1.0 - 17.0 4- 6 yrs. 0.8 - 16.9 1.6 - 13.1 7- 9 yrs. 1.9 - 11.6 0.3 - 12.9 10-12 yrs. 0.9 - 12.9 1.9 - 9.6 13-15 yrs. 1.6 - 16.6 3.0 - 14.4 Adult 2.1 - 17.7 2.8 - 29.2 Female: Non- 2.8 - 29.2 9.7 - 208.5 Postmenopausal 1.8 - 20.3Performed At: [facility] [id number] [place], [place] [id number] T4 FREE DIRECTOrdered By: González [employer] Sales Consultant on 03-29-2009 T4 free mass conc 1.1 ng/dL Normal 0.76-1.146 [facility] Work Phone: T4 THYROXINOrdered By: Tracy m [employer] Sales Consultant on 03-29-2009 T4 THYROXIN 11.1 ug/dL Normal 4.8-13.9 [facility] Work Phone: TSHOrdered By: System Manage r on 03-29-2009 Thyrotropin Qn 0.74 {uIU/mL} Normal 0.358-3.74 [facility] Work Phone: VIT D,25 [id number] By: González [employer] Sales Consultant on 03-29-2009 VIT D,25 [id number] 46.1 ng/mL Normal 32.0-100.0 [facility]prehens [facility] Work Phone: Comment on above: Recent studies consi miquel the lower limit of 32.0 ng/mL to madhu threshold for optimal health.Jeferson RODRIGES. J Nutr. 2004;135(2):317-22. VITAMIN [id number] By: Tracy m [employer] Sales Consultant on 03-29-2009 Cobalamin (Vitamin B12) mass conc 1484 pg/mL Abnormal [id number] [facility] Work Phone: Urinalysis, Office ([id number])Or dered By: Mary Carlisle on 07-03-2007 Bilirubin Ql (U) Negative Normal [facility] Work Phone: Bilirubin Ql (U) Negative Normal [facility]; [facility] Work Phone: Glucose Test strip (U) [Mass/Vol] Negative Normal [facility]; [facility] Work Phone: Glucose Test strip mass conc (U) Negative Normal [facility] Work Phone: Hemoglobin Ql (U) Non Hemolyzed Trace Normal [facility] Work Phone: Hemoglobin Test strip Ql (U) Non Hemolyzed Trace Normal Comprehensiv e [facility] Work Phone: Ketones Ql (U) Negative Normal [facility] Work Phone: Ketones Ql (U) Negative Normal [facility]; [facility] Work Phone: Leukocyte esterase Test strip Ql (U) Small Normal [facility] Work Phone: Nitrite Ql (U) Negative Normal [facility] Work Phone: Nitrite Ql (U) Negative Normal [facility]; [facility] Work Phone: Nitrite Test strip Ql (U) Negative Normal [facility] Work Phone: pH (U) 7.5 [pH] Normal [facility] Work Phone: pH Test strip (U) 7.5 [pH] Normal [facility] Work Phone: Protein Ql (U) Negative Normal [facility] Work Phone: Protein Ql (U) Negative Normal [facility]; [facility] Work Phone: Protein Test strip Ql (U) Negative Normal [facility] Work Phone: Specific gravity Relative Density (U) 1.015 1 Normal Comprehensi ve [facility] Work Phone: Urobilinogen mass/time (24H U) Normal Normal [facility] Work Phone: Urine Culture,ComprehensiveO rdered By: Bread W[employer]pping [employer] Feeder on 07-03-2007 Bacteria identified Cx Nom (U) Final report Normal [facility] Work Phone: Bacteria identified Cx Nom (U) Escherichia coli Normal [facility] Work Phone: Comment on above: 50,000-100,000 colon y forming units per mL Other [facility] pre[facility] Work Phone: Comment on above: S = Susceptibl e; I = Intermediate; R = Resistant P = Positive; N = Negative MICS are expressed in micrograms per mL Antibiotic RSLT#1 RSLT#2 RSLT#3 RSLT#4Amoxicillin/Clavulanic Acid SAmpicillin SCefepime SCeftriaxone SCefuroxime SCephalothin SCiprofloxacin SESBL NGentamicin SImipenem SLevofloxacin SNitrofurantoin SPiperacillin/Tazobactam STetracycline STobramycin STrimethoprim/Sulfa S GLUPOrdered By: System Manag er on 02-04-2007 GLUP 107 mg/dL Normal [facility] Work Phone: LIPIDOrdered By: System [employer] melvin on 02-04-2007 Cholesterol in HDL mass conc 49 mg/dL Normal [facility] Work Phone: Comment on above: Reference Range HDL <40 mg/dL Low HDL Cholesterol HDL >or= 60 mg/dL High HDL Cholesterol Cholesterol in LDL mass conc 138 mg/dL Abnormal 0-130 [facility] Work Phone: Cholesterol in VLDL mass conc 25 mg/dL Normal 5-40 [facility] Work Phone: Cholesterol mass conc 212 mg/dL Abnormal Com prehens[facility] Work Phone: Comment on above: <200 mg/dL Desirable 200-240 mg/dL Borderline >240 mg/dL High Risk Triglyceride mass conc 126 mg/dL Normal [facility] [place] [facility] Work Phone: Comment on above: Serum Triglycerides Reference Interval Normal <150 mg/dL Borderline high 150 - 199 mg/dL High 200 - 499 mg/dL Very High > or = 500 mg/dL LIVEROrdered By: System [employer] on 02-04-2007 Albumin mass conc 3.8 g/dL Normal 3.4-5.0 Compre[facility] Work Phone: ALP enzyme act/vol 95 U/L Normal 50-136 [facility] Work Phone: ALT enzyme act/vol 67 [iU]/L Abnormal 30-65 [facility] Work Phone: AST enzyme act/vol 26 U/L Normal 15-37 [facility] Work Phone: Bilirubin mass conc 0.48 mg/dL Normal 0.00-1.00 Compr ehens[facility] Work Phone: Bilirubin.direct mass conc 0.10 mg/dL Normal 0.00-0.30 [facility] Work Phone: Protein mass conc 7.3 g/dL Normal 6.4-8.2 [facility] Work Phone: B12/FOLATES 810Ordered By: Austin [employer] Sales Consultant on 06-25-2006 Cobalamin (Vitamin B12) mass conc 520 pg/mL Normal 211-911 [facility] Work Phone: B12/FOLATES 810 > 24.0 Normal Comprehen sive [facility] Work Phone: Comment on above: Indeterminate: 3.4 - 5.4 Deficient: <3.4Performed At: [facility] [id number] [place], [place] [id number] CBCD,SMEAR DIFFOrdered By: [employer] Sales Consultant on 06-25-2006 Band form neutrophils/100 WBC Manual cnt (Bld) 1 % Normal 0-5 [facility] Work Phone: Eosinophils/100 WBC Auto (Bld) 1 % Normal 0-5 [facility] Work Phone: Erythrocyte distribution width Auto Ratio (RBC) 12.7 % Normal 11.6-14.6 [facility] Work Phone: Hematocrit Auto Volume Fraction (Bld) 41.2 % Normal 37-47 Comprehens [facility] Work Phone: Hemoglobin mass conc (Bld) 14.0 g/dL Normal 12.0-16.0 [facility] Work Phone: Lymphocytes/100 WBC Auto (Bld) 35 % Normal 19-41 [facility] Work Phone: MCH Auto Entitic mass (RBC) 30.2 pg Normal 27.0-32.0 [facility] Work Phone: MCHC Auto mass conc (RBC) 34.1 g/dL Normal 32-36 [facility] Work Phone: MCV Auto Entitic volume (RBC) 88.4 fL Normal 81-99 [facility] [place] [facility] Work Phone: Monocytes/100 WBC Auto (Bld) 6 % Normal 0-10 [facility] [place] [facility] Work Phone: Platelets Auto #/vol (Bld) 366 10*3/uL Normal 150-450 [facility] [place] [facility] Work Phone: RBC Auto #/vol (Bld) 4.65 {M/mm3} Normal 4.2-5.4 [facility] Work Phone: WBC Auto #/vol (Bld) 8.3 10*3/uL Normal 4.4-11.0 Com [facility] Work Phone: CBCD,SMEAR DIFF 57 % Normal 47-70 [facility] Work Phone: CBCD,SMEAR DIFF 100 1 Normal [facility] Work Phone: COMP METABOLICOrdered By: González [employer] Sales Consultant on 06-25-2006 Albumin mass conc 3.7 g/dL Normal 3.4-5.0 Compreh [facility] Work Phone: Albumin/Globulin mass ratio 1.1 {RATIO} Normal 0.9-2.4 [facility] [place] [facility] Work Phone: ALP enzyme act/vol 81 U/L Normal 50-136 [facility] Work Phone: ALT enzyme act/vol 29 [iU]/L Abnormal 30-65 [facility] Work Phone: Anion gap 3 molar conc 8 mmol/L Normal 5-15 [facility] [place] [facility] Work Phone: AST enzyme act/vol 15 U/L Normal 15-37 [facility] Work Phone: Bilirubin mass conc 0.31 mg/dL Normal 0.00-1.00 [facility] Work Phone: Calcium mass conc 9.6 mg/dL Normal 8.5-10.1 [facility] Work Phone: Chloride molar conc 104 mmol/L Normal 98-107 Compr ehensive [facility] Work Phone: CO2 molar conc 26.4 mmol/L Normal 22.0-29.0 Comprehen sive [facility] Work Phone: Creatinine mass conc 0.7 mg/dL Normal 0.6-1.0 Comp rehens[facility] Work Phone: Globulin Calculated mass conc (S) 3.4 g/dL Normal 2.3-3.5 [facility] Work Phone: Glucose mass conc 82 mg/dL Normal 70-110 Com[facility] Work Phone: Potassium molar conc 4.0 mmol/L Normal 3.5-5.1 Comp rehens[facility] Work Phone: Protein mass conc 7.1 g/dL Normal 6.4-8.2 [facility] Work Phone: Sodium molar conc 138 mmol/L Normal 136-145 Com[facility] Work Phone: Urea nitrogen mass conc 12 mg/dL Normal 7-18 [facility] Work Phone: Urea nitrogen/Creatinine mass ratio 17.1 {RATIO} Normal 10-20 [facility] Work Phone: COMPLETE UAOrdered By: Tracy neil [employer] Sales Consultant on 06-25-2006 RBC Test strip #/vol (U) 0 SEEN Normal 0-5 [facility] Work Phone: COMPLETE UA SeeNote Normal 5-10 [facility] Work Phone: Comment on above: Result: NEGATIVE Result: ADEQUATE Result: NORM C&C Result: 0-5 SEEN COMPLETE UA 0 SEEN Normal 0-5 [facility] Work Phone: COMPLETE UA YELLOW Normal [facility] Work Phone: COMPLETE UA 5.5 1 Normal 5.0-8.0 [facility] Work Phone: COMPLETE UA <=1.005 Normal 1.002-1.03 0 [facility] Work Phone: COMPLETE UA 0.2 EU/dl Normal 0.2 - 1.0 [facility] Work Phone: COMPLETE UA CLEAR Normal [facility] Work Phone: PFLIPOrdered By: System Cyndee melvin on 06-25-2006 Cholesterol in HDL mass conc 47 mg/dL Normal [facility] Work Phone: Comment on above: Reference Range HDL <40 mg/dL Low HDL Cholesterol HDL >or= 60 mg/dL High HDL Cholesterol Cholesterol in LDL mass conc 126 mg/dL Normal 0-130 [facility] Work Phone: Cholesterol in VLDL mass conc 47 mg/dL Abnormal 5-40 [facility] Work Phone: Cholesterol mass conc 220 mg/dL Abnormal Com prehens[facility] Work Phone: Comment on above: <200 mg/dL Desirable 200-240 mg/dL Borderline >240 mg/dL High Risk Triglyceride mass conc 236 mg/dL Abnormal [facility] Work Phone: Comment on above: Serum Triglycerides Reference Interval Normal <150 mg/dL Borderline high 150 - 199 mg/dL High 200 - 499 mg/dL Very High > or = 500 mg/dL TSHOrdered By: System Mailana r on 06-25-2006 Thyrotropin Qn 2.18 {uIU/mL} Normal 0.34-4.82 Compre[facility] ens[facility] Work Phone: No Panel Information [facility] Vital Signs Date Time Vital Sign Value Performing Clinician Facility 07-18-2024 16:16-0500 Body mass index (BMI) [Ratio] 28.79 kg/m2 [facility] [employer] Work Phone: [facility] 07-18-2024 16:16-0500 Body temperature 98.01 [degF] [facility] [employer] Work Phone: [facility] 07-18-2024 16:16-0500 Body weight 83.46 kg Sp [employer] Work Phone: [facility] 07-18-2024 16:16-0500 Diastolic blood pressure 86 mm[Hg] Sp [employer] Work Phone: [facility] 07-18-2024 16:16-0500 Heart rate 78 /min Sp Masci DO Work Phone: [facility] 07-18-2024 16:16-0500 SaO2% (BldA) [Mass fraction] 98 % Sp Masci DO Work Phone: [facility] 07-18-2024 16:16-0500 Systolic blood pressure 130 mm[Hg] Sp Masci DO Work Phone: [facility] 01-01-2024 16:07-0400 Body mass index (BMI) [Ratio] 27.23 kg/m2 Sp Masci DO Work Phone: [facility] 01-01-2024 16:07-0400 Body temperature 97.81 [degF] Sp Masci DO Work Phone: [facility] 01-01-2024 16:07-0400 Body weight 78.93 kg Sp Masci DO Work Phone: [facility] 01-01-2024 16:07-0400 Diastolic blood pressure 77 mm[Hg] Sp Masci DO Work Phone: [facility] 01-01-2024 16:07-0400 Heart rate 80 /min Sp Masci DO Work Phone: [facility] 01-01-2024 16:07-0400 SaO2% (BldA) [Mass fraction] 97 % Sp Masci DO Work Phone: [facility] 01-01-2024 16:07-0400 Systolic blood pressure 121 mm[Hg] Sp Masci DO Work Phone: [facility] 05-25-2023 16:15-0400 Body height 170.3 cm Sp Masci DO Work Phone: [facility] 05-25-2023 16:15-0400 Body temperature 98.6 [degF] Sp Masci DO Work Phone: [facility] 05-25-2023 16:15-0400 Body weight 84.14 kg Sp Masci DO Work Phone: [facility] 05-25-2023 16:15-0400 Diastolic blood pressure 82 mm[Hg] Sp Lang DO Work Phone: [facility] 05-25-2023 16:15-0400 Heart rate 79 /min Sp Tuckeri DO Work Phone: [facility] 05-25-2023 16:15-0400 SaO2% (BldA) [Mass fraction] 99 % Sp Lang DO Work Phone: [facility] 05-25-2023 16:15-0400 Systolic blood pressure 125 mm[Hg] Sp Tuckeri DO Work Phone: [facility] 02-27-2023 09:32-0400 Body height 172.7 cm Mary Landis APRN.FAMILY SERVICES ASSISTANT Work Phone: [facility] 02-27-2023 09:32-0400 Body weight 90.72 kg Mary Landis APRN.FAMILY SERVICES ASSISTANT Work Phone: [facility] 02-27-2023 09:32-0400 Diastolic blood pressure 74 mm[Hg] Mary Landis APRN.FAMILY SERVICES ASSISTANT Work Phone: [facility] 02-27-2023 09:32-0400 Heart rate 67 /min Mary Landis APRN.FAMILY SERVICES ASSISTANT Work Phone: [facility] 02-27-2023 09:32-0400 Systolic blood pressure 143 mm[Hg] Mary Landis APRN.FAMILY SERVICES ASSISTANT Work Phone: [facility] 02-19-2023 10:29-0400 Body height 175.26 cm [facility]; [facility] Work Phone: 02-19-2023 10:29-0400 Body mass index (BMI) [Ratio] 29.14 kg/m2 [facility]; [facility] Work Phone: 02-19-2023 10:29-0400 Body surface area Derived from formula 2.05 m2 [facility]; [facility] Work Phone: 02-19-2023 10:29-0400 Body temperature 97 [degF] [facility]; [facility] Work Phone: 02-19-2023 10:29-0400 Body weight 89.5 kg [facility]; [facility] Work Phone: 02-19-2023 10:29-0400 Diastolic blood pressure 70 mm[Hg] [facility]; [facility] Work Phone: 02-19-2023 10:29-0400 Heart rate 61 /min [facility]; [facility] Work Phone: 02-19-2023 10:29-0400 SaO2% (BldA) [Mass fraction] 96 % [facility]; [facility] Work Phone: 02-19-2023 10:29-0400 Systolic blood pressure 120 mm[Hg] [facility]; [facility] Work Phone: 02-13-2023 08:46-0400 Body height 175.[address] [facility] 01-11-2023 13:36-0400 Body height 175.26 cm Miesha Millanon DO Work Phone: [facility]; [facility] Work Phone: 01-11-2023 13:36-0400 Body mass index (BMI) [Ratio] 29.14 kg/m2 Miesha Wilmer DO Work Phone: [facility]; [facility] Work Phone: 01-11-2023 13:36-0400 Body surface area Derived from formula 2.05 m2 Miesha Wilmer DO Work Phone: [facility]; [facility] Work Phone: 01-11-2023 13:36-0400 Body temperature 96.7 [degF] Miesha Wilmer DO Work Phone: [facility]; [facility] Work Phone: 01-11-2023 13:36-0400 Body weight 89.5 kg Miesha Wilmer DO Work Phone: [facility]; [facility] Work Phone: 01-11-2023 13:36-0400 Diastolic blood pressure 88 mm[Hg] Miesha Wilmer DO Work Phone: [facility]; [facility] Work Phone: 01-11-2023 13:36-0400 Heart rate 59 /min Miesha Wilmer DO Work Phone: [facility]; [facility] Work Phone: 01-11-2023 13:36-0400 SaO2% (BldA) [Mass fraction] 98 % Miesha Wilmer DO Work Phone: [facility]; [facility] Work Phone: 01-11-2023 13:36-0400 Systolic blood pressure 122 mm[Hg] Miesha Wilmer DO Work Phone: [facility]; [facility] Work Phone: 08-30-2022 10:14-0500 Body height 172.7 cm Mary Landis APRN.FAMILY SERVICES ASSISTANT Work Phone: [facility] 08-30-2022 10:14-0500 Body weight 97.07 kg Mary Landis APRN.FAMILY SERVICES ASSISTANT Work Phone: [facility] 08-30-2022 10:14-0500 Diastolic blood pressure 86 mm[Hg] Mary Landis APRN.FAMILY SERVICES ASSISTANT Work Phone: [facility] 08-30-2022 10:14-0500 Heart rate 69 /min Mary Landis APRN.FAMILY SERVICES ASSISTANT Work Phone: [facility] 08-30-2022 10:14-0500 Systolic blood pressure 138 mm[Hg] Mary Landis APRN.FAMILY SERVICES ASSISTANT Work Phone: [facility] 08-10-2022 16:08-0500 Body height 172.5 cm Sp Masci DO Work Phone: [facility] 08-10-2022 16:08-0500 Body temperature 98.2 [degF] Sp Masci DO Work Phone: [facility] 08-10-2022 16:08-0500 Body weight 97.07 kg Sp Masci DO Work Phone: [facility] 08-10-2022 16:08-0500 Diastolic blood pressure 87 mm[Hg] Sp Masci DO Work Phone: [facility] 08-10-2022 16:08-0500 Heart rate 70 /min Sp Masci DO Work Phone: [facility] 08-10-2022 16:08-0500 SaO2% (BldA) [Mass fraction] 99 % Sp Masci DO Work Phone: [facility] 08-10-2022 16:08-0500 Systolic blood pressure 143 mm[Hg] Sp Masci DO Work Phone: [facility] 06-15-2022 13:39-0500 Body height 175.3 cm Gianna Mikey DO Work Phone: [facility] 06-15-2022 13:39-0500 Body weight 91.17 kg Gianna Mikey DO Work Phone: [facility] 05-01-2022 16:15-0400 Body height 172 cm Sp Masci DO Work Phone: [facility] 05-01-2022 16:15-0400 Body temperature 98.2 [degF] Sp Masci DO Work Phone: [facility] 05-01-2022 16:15-0400 Body weight 93.44 kg Sp Masci DO Work Phone: [facility] 05-01-2022 16:15-0400 Diastolic blood pressure 94 mm[Hg] Sp Masci DO Work Phone: [facility] 05-01-2022 16:15-0400 Heart rate 71 /min Sp Lang DO Work Phone: [facility] 05-01-2022 16:15-0400 SaO2% (BldA) [Mass fraction] 98 % Sp Lang DO Work Phone: [facility] 05-01-2022 16:15-0400 Systolic blood pressure 132 mm[Hg] Sp Lang DO Work Phone: [facility] 04-25-2022 08:02-0400 Body temperature 97.39 [degF] Carmella Griffiths MD Work Phone: [facility] 04-25-2022 08:02-0400 Body weight 93.53 kg Carmella Griffiths MD Work Phone: [facility] 04-25-2022 08:02-0400 Diastolic blood pressure 91 mm[Hg] Carmella Griffiths MD Work Phone: [facility] 04-25-2022 08:02-0400 Heart rate 80 /min Carmella Griffiths MD Work Phone: [facility] 04-25-2022 08:02-0400 SaO2% (BldA) [Mass fraction] 99 % Carmella Griffiths MD Work Phone: [facility] 04-25-2022 08:02-0400 Systolic blood pressure 138 mm[Hg] Carmella Griffiths MD Work Phone: [facility] 04-12-2022 16:05-0400 Body height 175.3 cm Carmella Griffiths MD Work Phone: [facility] 04-12-2022 16:05-0400 Body temperature 97.7 [degF] Carmella Griffiths MD Work Phone: [facility] 04-12-2022 16:05-0400 Body weight 93.44 kg Carmella Griffiths MD Work Phone: [facility] 04-12-2022 16:05-0400 Diastolic blood pressure 84 mm[Hg] Carmella Griffiths MD Work Phone: [facility] 04-12-2022 16:05-0400 Heart rate 75 /min Carmella Griffiths MD Work Phone: [facility] 04-12-2022 16:05-0400 SaO2% (BldA) [Mass fraction] 96 % Carmella Griffiths MD Work Phone: [facility] 04-12-2022 16:05-0400 Systolic blood pressure 154 mm[Hg] Carmella Griffiths MD Work Phone: [facility] 03-01-2022 09:33-0400 Body height 172.1 cm Mary Landis APRN.FAMILY SERVICES ASSISTANT Work Phone: [facility] 03-01-2022 09:33-0400 Body weight 92.08 kg Mary Landis APRN.FAMILY SERVICES ASSISTANT Work Phone: [facility] 03-01-2022 09:33-0400 Diastolic blood pressure 72 mm[Hg] Mary Landis APRN.FAMILY SERVICES ASSISTANT Work Phone: [facility] 03-01-2022 09:33-0400 Heart rate 71 /min Mary Landis VP PURCHASING.FAMILY SERVICES ASSISTANT Work Phone: [facility] 03-01-2022 09:33-0400 Systolic blood pressure 139 mm[Hg] Mary Landis APRN.FAMILY SERVICES ASSISTANT Work Phone: [facility] 02-06-2022 09:18-0400 Body height 175.26 cm [facility]; [facility] Work Phone: 02-06-2022 09:18-0400 Body mass index (BMI) [Ratio] 29.14 kg/m2 Kaitlin [facility]; [facility] Work Phone: 02-06-2022 09:18-0400 Body surface area Derived from formula 2.05 m2 [facility] Work Phone: 02-06-2022 09:18-0400 Body temperature 97.3 [degF] [facility]; [facility] Work Phone: Comment on above: Method: Infrared 02-06-2022 09:18-0400 Body weight 89.5 kg Kaitlin Jimenez [facility]; [facility] Work Phone: 02-06-2022 09:18-0400 Diastolic blood pressure 90 mm[Hg] Kaitlin Jimenez SPECIAL EDUCATION RESOURCE TEACHER [facility]; [facility] Work Phone: Comment on above: Patient Position: Sitting; Cuff Location : Left Arm; Cuff Size: Standard 02-06-2022 09:18-0400 Heart rate 71 /min Kaitlin Jimenez [facility]; [facility] Work Phone: Comment on above: Pattern: Regular 02-06-2022 09:18-0400 Respiratory rate 16 /min Kaitlin Jimenez [facility]; [facility] Work Phone: Comment on above: Pattern: Unlabored 02-06-2022 09:18-0400 SaO2% (BldA) [Mass fraction] 98 % Kaitlin Jimenez [facility]; [facility] Work Phone: Comment on above: Room air 02-06-2022 09:18-0400 Systolic blood pressure 136 mm[Hg] Kaitlin Jimenez [facility]; [facility] Work Phone: Comment on above: Patient Position: Sitting; Cuff Location : Left Arm; Cuff Size: Standard 01-12-2022 13:26-0400 Body height 175.26 cm Kaitlin Jimenez [facility]; [facility] Work Phone: 01-12-2022 13:26-0400 Body mass index (BMI) [Ratio] 29.14 kg/m2 Kaitlin Jimenez [facility]; [facility] Work Phone: 01-12-2022 13:26-0400 Body surface area Derived from formula 2.05 m2 Kaitlin Jimenez [facility]; [facility] Work Phone: 01-12-2022 13:26-0400 Body temperature 97.3 [degF] Kaitlin Jimenez [facility]; [facility] Work Phone: Comment on above: Method: Infrared 01-12-2022 13:26-0400 Body weight 89.5 kg Kaitlin Jimenez [facility]; [facility] Work Phone: 01-12-2022 13:26-0400 Diastolic blood pressure 78 mm[Hg] Kaitlin Jimenez CMA [facility]; [facility] Work Phone: Comment on above: Patient Position: Sitting; Cuff Location : Left Arm; Cuff Size: Standard 01-12-2022 13:26-0400 Heart rate 64 /min Kaitlin Jimenez [facility]; [facility] Work Phone: Comment on above: Pattern: Regular 01-12-2022 13:26-0400 Respiratory rate 16 /min Kaitlin Jimenez [facility]; [facility] Work Phone: Comment on above: Pattern: Unlabored 01-12-2022 13:26-0400 SaO2% (BldA) [Mass fraction] 98 % Kaitlin Jimenez [facility]; [facility] Work Phone: Comment on above: Room air 01-12-2022 13:26-0400 Systolic blood pressure 132 mm[Hg] Kaitlin Jimenez [facility]; [facility] Work Phone: Comment on above: Patient Position: Sitting; Cuff Location : Left Arm; Cuff Size: Standard 10-31-2021 16:13-0400 Body height 172.1 cm Sp Masci DO Work Phone: [facility] 10-31-2021 16:13-0400 Body temperature 97.3 [degF] Sp Masci DO Work Phone: [facility] 10-31-2021 16:13-0400 Body weight 92.53 kg Sp Masci DO Work Phone: [facility] 10-31-2021 16:13-0400 Diastolic blood pressure 79 mm[Hg] Sp Masci DO Work Phone: [facility] 10-31-2021 16:13-0400 Heart rate 67 /min Sp Masci DO Work Phone: [facility] 10-31-2021 16:13-0400 Systolic blood pressure 159 mm[Hg] Sp Lang DO Work Phone: [facility] 09-21-2021 10:19-0500 Body height 175.26 cm Melissa Donnie SPACE SCIENCES DIRECTOR [facility]; [facility] Work Phone: Comment on above: None reported, virtual 09-21-2021 10:19-0500 Body mass index (BMI) [Ratio] 29.14 kg/m2 Melissa Donnie SPACE SCIENCES DIRECTOR [facility]; [facility] Work Phone: Comment on above: None reported, virtual 09-21-2021 10:19-0500 Body surface area Derived from formula 2.05 m2 Melissa Donnie SPACE SCIENCES DIRECTOR [facility]; [facility] Work Phone: Comment on above: None reported, virtual 09-21-2021 10:19-0500 Body weight 89.5 kg Melissa Donnie SPACE SCIENCES DIRECTOR [facility]; [facility] Work Phone: Comment on above: None reported, virtual 07-28-2021 08:44-0500 Body height 175.26 cm Makayla Slarb SPACE SCIENCES DIRECTOR [facility]; [facility] Work Phone: Comment on above: pt reported 07-28-2021 08:44-0500 Body mass index (BMI) [Ratio] 29.14 kg/m2 Makayla Slarb SPACE SCIENCES DIRECTOR [facility]; [facility] Work Phone: Comment on above: pt reported 07-28-2021 08:44-0500 Body surface area Derived from formula 2.05 m2 Makyala Slarb SPACE SCIENCES DIRECTOR [facility]; [facility] Work Phone: Comment on above: pt reported 07-28-2021 08:44-0500 Body weight 89.5 kg Makayla Slarb SPACE SCIENCES DIRECTOR [facility]; [facility] Work Phone: Comment on above: pt reported 07-28-2021 08:44-0500 Diastolic blood pressure 73 mm[Hg] Makayla Slarb SPACE SCIENCES DIRECTOR [facility]; [facility] Work Phone: Comment on above: Patient Position: Sitting; Cuff Location : Left Arm; Cuff Size: Standard pt reported 07-28-2021 08:44-0500 SaO2% (BldA) [Mass fraction] 98 % [facility] Work Phone: Comment on above: Room air pt reported 07-28-2021 08:44-0500 Systolic blood pressure 118 mm[Hg] Makayla Guillen [facility] Work Phone: Comment on above: Patient Position: Sitting; Cuff Location : Left Arm; Cuff Size: Standard pt reported 06-30-2021 11:51-0500 Body height 175.26 cm Makayla Guillen [facility] Work Phone: Comment on above: SPO2 running 94-97% 06-30-2021 11:51-0500 Body mass index (BMI) [Ratio] 27.04 kg/m2 [facility] Work Phone: Comment on above: SPO2 running 94-97% 06-30-2021 11:51-0500 Body surface area Derived from formula 1.99 m2 [facility] Work Phone: Comment on above: SPO2 running 94-97% 06-30-2021 11:51-0500 Body weight 83.07 kg [facility] Work Phone: Comment on above: SPO2 running 94-97% 02-18-2020 09:06-0400 BMI (Body Mass Index) 27.04 kg/m2 Kaitlin Jimenez [facility] Internal Medicine Work Phone: Comment on above: bp went down after a few mins to 138/88 02-18-2020 09:06-0400 Body Temperature 97.2 [degF] Kaitlin Jimenez [facility] Internal Medicine Work Phone: Comment on above: Method: Temporal bp went down after a few mins to 138/88 02-18-2020 09:06-0400 Body weight 83.07 kg Kaitlin Jimenez [facility] Internal Medicine Work Phone: Comment on above: bp went down after a few mins to 138/88 02-18-2020 09:06-0400 BP Diastolic 90 mm[Hg] Kaitlin Jimenez [facility] Internal Medicine Work Phone: Comment on above: Patient Position: Sitting; Cuff Location : Left Arm; Cuff Size: Standard bp went down after a few mins to 138/88 02-18-2020 09:06-0400 BP Systolic 152 mm[Hg] [facility] Work Phone: Comment on above: Patient Position: Sitting; Cuff Location : Left Arm; Cuff Size: Standard bp went down after a few mins to 138/88 02-18-2020 09:06-0400 BSA (Body Surface Area) 1.99 m2 Kaitlin Jimenez [facility] Internal Medicine Work Phone: Comment on above: bp went down after a few mins to 138/88 02-18-2020 09:06-0400 Height 175.26 cm [facility] Work Phone: Comment on above: bp went down after a few mins to 138/88 02-18-2020 09:06-0400 Pulse (Heart Rate) 85 /min [facility] Work Phone: Comment on above: Pattern: Regular bp went down after a few mins to 138/88 02-18-2020 09:06-0400 Pulse Oximetry 98 % Miesha Guillen [facility] Internal Medicine Work Phone: Comment on above: Room air bp went down after a few mins to 138/88 02-18-2020 09:06-0400 Respiratory Rate 16 /min [facility] Work Phone: Comment on above: Pattern: Unlabored bp went down after a few mins to 138/88 02-18-2020 09:06-0400 SaO2% (BldA) [Mass fraction] 98 % Kaitlin [facility] Internal Medicine; [facility] Internal Medicine Work Phone: Comment on above: Room air bp went down after a few mins to 138/88 01-15-2020 09:50-0400 BMI (Body Mass Index) 26.16 kg/m2 Kaitlin Jimenez [facility] Internal Medicine Work Phone: 01-15-2020 09:50-0400 Body Temperature 98.2 [degF] Kaitlin Jimenez [facility] Internal Medicine Work Phone: Comment on above: Method: Temporal 01-15-2020 09:50-0400 Body weight 80.34 kg Kaitlin Jimenez [facility] Internal Medicine Work Phone: 01-15-2020 09:50-0400 BP Diastolic 74 mm[Hg] Kaitlin Jimenez [facility] Internal Medicine Work Phone: Comment on above: Patient Position: Sitting; Cuff Location : Left Arm; Cuff Size: Standard 01-15-2020 09:50-0400 BP Systolic 110 mm[Hg] Kaitlin Jimenez [facility] Internal Medicine Work Phone: Comment on above: Patient Position: Sitting; Cuff Location : Left Arm; Cuff Size: Standard 01-15-2020 09:50-0400 BSA (Body Surface Area) 1.96 m2 Kaitlin Jimenez [facility] Internal Medicine Work Phone: 01-15-2020 09:50-0400 Height 175.26 cm Kaitlin Jimenez [facility] Internal Medicine Work Phone: 01-15-2020 09:50-0400 Pulse (Heart Rate) 65 /min Kaitlin Jimenez [facility] Internal Medicine Work Phone: Comment on above: Pattern: Regular 01-15-2020 09:50-0400 Pulse Oximetry 97 % Miesha Guillen [facility] Internal Medicine Work Phone: Comment on above: Room air 01-15-2020 09:50-0400 Respiratory Rate 16 /min Kaitlin Jimenez [facility] Internal Medicine Work Phone: Comment on above: Pattern: Unlabored 01-15-2020 09:50-0400 SaO2% (BldA) [Mass fraction] 97 % Kaitlin Jimenez [facility]; [facility] Work Phone: Comment on above: Room air 01-15-2020 09:42-0400 BMI (Body Mass Index) 28.22 kg/m2 Nivai Christensen RN [facility] Internal Medicine Work Phone: 01-15-2020 09:42-0400 Body weight 86.69 kg Nivia Christensen RN [facility] Work Phone: 01-15-2020 09:42-0400 BSA (Body Surface Area) 2.03 m2 Nivia Christensen RN [facility] Work Phone: 01-15-2020 09:42-0400 Height 175.26 cm Nivia Christensen RN [facility] Work Phone: 05-08-2019 06:57-0400 BMI (Body Mass Index) 28.22 kg/m2 Makayla Slarb SPACE SCIENCES DIRECTOR Comprehen [facility] Internal Medicine Work Phone: 05-08-2019 06:57-0400 Body weight 86.69 kg Makayla Slarb SPACE SCIENCES DIRECTOR [facility] Work Phone: 05-08-2019 06:57-0400 BP Diastolic 82 mm[Hg] Makayla Slarb SPACE SCIENCES DIRECTOR [facility] Work Phone: Comment on above: Patient Position: Sitting; Cuff Location : Left Arm; Cuff Size: Standard 05-08-2019 06:57-0400 BP Systolic 140 mm[Hg] Makayla Slarb SPACE SCIENCES DIRECTOR [facility] Work Phone: Comment on above: Patient Position: Sitting; Cuff Location : Left Arm; Cuff Size: Standard 05-08-2019 06:57-0400 BSA (Body Surface Area) 2.03 m2 Makayla Slarb SPACE SCIENCES DIRECTOR [facility] Work Phone: 05-08-2019 06:57-0400 Height 175.26 cm Makayla Slarb SPACE SCIENCES DIRECTOR [facility] Work Phone: 05-08-2019 06:57-0400 Pulse (Heart Rate) 86 /min Makayla Slarb SPACE SCIENCES DIRECTOR Comprehensiv e Internal Medicine Work Phone: Comment on above: Pattern: Regular 05-08-2019 06:57-0400 Pulse Oximetry 98 % Miesha Guillen [facility] Work Phone: Comment on above: Room air 05-08-2019 06:57-0400 Respiratory Rate 17 /min Makayla Wilmer HERNANDEZ [facility] Work Phone: Comment on above: Pattern: Unlabored 05-08-2019 06:57-0400 SaO2% (BldA) [Mass fraction] 98 % Makayla Guillen LPN [facility]; [facility] Work Phone: Comment on above: Room air 03-12-2019 08:38-0400 BMI (Body Mass Index) 27.84 kg/m2 Julio Huang RN [facility] Work Phone: 03-12-2019 08:38-0400 Body weight 85.5 kg Julio Huang RN [facility] Work Phone: 03-12-2019 08:38-0400 BP Diastolic 64 mm[Hg] Julio Huang RN [facility] Work Phone: Comment on above: Patient Position: Sitting; Cuff Location : Left Arm; Cuff Size: Large 03-12-2019 08:38-0400 BP Systolic 128 mm[Hg] Julio Huang RN [facility] Work Phone: Comment on above: Patient Position: Sitting; Cuff Location : Left Arm; Cuff Size: Large 03-12-2019 08:38-0400 BSA (Body Surface Area) 2.01 m2 Julio Huang RN [facility] Work Phone: 03-12-2019 08:38-0400 Height 175.26 cm Julio Huang RN [facility] Work Phone: 03-12-2019 08:38-0400 Pulse (Heart Rate) 74 /min Julio Huang RN [facility] Work Phone: Comment on above: Pattern: Regular 03-12-2019 08:38-0400 Pulse Oximetry 98 % Miesha Millanon [facility] Work Phone: Comment on above: Room air 03-12-2019 08:38-0400 Respiratory Rate 18 /min Julio Huang RN [facility] Work Phone: Comment on above: Pattern: Unlabored 03-12-2019 08:38-0400 SaO2% (BldA) [Mass fraction] 98 % Julio Huang RN [facility]; [facility] Work Phone: Comment on above: Room air 07-18-2018 07:06-0500 BMI (Body Mass Index) 27.1 kg/m2 Andrew Fontana LPN Compre[facility] s[facility] Internal Medicine Work Phone: 07-18-2018 07:06-0500 Body Temperature 97.9 [degF] Andrew Fontana LPN [facility] Work Phone: Comment on above: Method: Temporal 07-18-2018 07:06-0500 Body weight 83.24 kg Andrew Fontana LPN [facility] Internal Medicine Work Phone: 07-18-2018 07:06-0500 BP Diastolic 68 mm[Hg] Andrew Fontana LPN [facility] Internal Medicine Work Phone: Comment on above: Patient Position: Sitting; Cuff Location : Left Arm; Cuff Size: Standard 07-18-2018 07:06-0500 BP Systolic 100 mm[Hg] Andrew Fontana LPN [facility] Internal Medicine Work Phone: Comment on above: Patient Position: Sitting; Cuff Location : Left Arm; Cuff Size: Standard 07-18-2018 07:06-0500 BSA (Body Surface Area) 1.99 m2 Andrew Fontana LPN [facility] Internal Medicine Work Phone: 07-18-2018 07:06-0500 Height 175.26 cm Andrew Fontana LPN [facility] Work Phone: 07-18-2018 07:06-0500 Pulse (Heart Rate) 72 /min Andrew Fontana LPN Comprehens[facility] e [facility] Medicine Work Phone: Comment on above: Pattern: Regular 07-18-2018 07:06-0500 Pulse Oximetry 98 % Miesha Guillen [facility] Medicine Work Phone: Comment on above: Room air 07-18-2018 07:06-0500 Respiratory Rate 18 /min Andrew Fontana LPN [facility] Internal Medicine Work Phone: Comment on above: Pattern: Unlabored 07-18-2018 07:06-0500 SaO2% (BldA) [Mass fraction] 98 % Andrew Fontana LPN [facility]; [facility] Work Phone: Comment on above: Room air 07-18-2018 07:06-0500 Weight 83.24 kg Miesha Guillen [facility] Work Phone: 10-24-2017 13:37-0400 BMI (Body Mass Index) 27.1 kg/m2 Julio Huang RN [facility] Work Phone: 10-24-2017 13:37-0400 Body weight 83.24 kg Julio Huang RN [facility] Work Phone: 10-24-2017 13:37-0400 BP Diastolic 64 mm[Hg] Julio Huang RN [facility] Work Phone: Comment on above: Patient Position: Standing; Cuff Locatio n: Right Arm; Cuff Size: Large 10-24-2017 13:37-0400 BP Systolic 124 mm[Hg] Julio Huang RN [facility] Work Phone: Comment on above: Patient Position: Standing; Cuff Locatio n: Right Arm; Cuff Size: Large 10-24-2017 13:37-0400 BSA (Body Surface Area) 1.99 m2 Julio Huang RN [facility] Work Phone: 10-24-2017 13:37-0400 Height 175.26 cm Julio Huang RN [facility] Work Phone: 10-24-2017 13:37-0400 Pulse (Heart Rate) 80 /min Julio Huang RN [facility] Work Phone: Comment on above: Pattern: Regular 10-24-2017 13:37-0400 Pulse Oximetry 98 % Miesha Guillen [facility] Work Phone: Comment on above: Room air 10-24-2017 13:37-0400 Respiratory Rate 18 /min Julio Huang RN [facility] Work Phone: Comment on above: Pattern: Unlabored 10-24-2017 13:37-0400 SaO2% (BldA) [Mass fraction] 98 % Julio Huang RN [facility]; [facility] Work Phone: Comment on above: Room air 10-24-2017 13:37-0400 Weight 83.24 kg Miesha Guillen [facility] Work Phone: 02-28-2017 11:12-0400 BMI (Body Mass Index) 25.77 kg/m2 Julio Huang RN [facility] Work Phone: 02-28-2017 11:12-0400 Body weight 79.15 kg Julio Huang RN [facility] Work Phone: 02-28-2017 11:12-0400 BP Diastolic 80 mm[Hg] Julio Huang RN [facility] Work Phone: Comment on above: Patient Position: Sitting; Cuff Location : Left Arm; Cuff Size: Standard 02-28-2017 11:12-0400 BP Systolic 120 mm[Hg] Julio Huang RN [facility] Work Phone: Comment on above: Patient Position: Sitting; Cuff Location : Left Arm; Cuff Size: Standard 02-28-2017 11:12-0400 BSA (Body Surface Area) 1.95 m2 Julio Huang RN [facility] Work Phone: 02-28-2017 11:12-0400 Height 175.26 cm Julio Huang RN [facility] Work Phone: 02-28-2017 11:12-0400 Pulse (Heart Rate) 65 /min Julio Huang RN [facility] Work Phone: Comment on above: Pattern: Regular 02-28-2017 11:12-0400 Pulse Oximetry 98 % Miesha Guillen [facility] Work Phone: Comment on above: Room air 02-28-2017 11:12-0400 Respiratory Rate 18 /min Julio Huang RN [facility] Work Phone: Comment on above: Pattern: Unlabored 02-28-2017 11:12-0400 SaO2% (BldA) [Mass fraction] 98 % Julio Huang RN [facility]; [facility] Work Phone: Comment on above: Room air 02-28-2017 11:12-0400 Weight 79.15 kg Miesha Guillen [facility] Work Phone: 05-17-2016 11:28-0400 BMI (Body Mass Index) 25.4 kg/m2 Makayla Slarb SPACE SCIENCES DIRECTOR [facility] Work Phone: 05-17-2016 11:28-0400 Body Temperature 98.6 [degF] Makayla Slarb SPACE SCIENCES DIRECTOR [facility] Work Phone: 05-17-2016 11:28-0400 Body weight 78.02 kg Makayla Slarb SPACE SCIENCES DIRECTOR [facility] Work Phone: 05-17-2016 11:28-0400 BP Diastolic 76 mm[Hg] Makayla Slarb SPACE SCIENCES DIRECTOR [facility] Work Phone: Comment on above: Patient Position: Sitting; Cuff Location : Left Arm; Cuff Size: Standard 05-17-2016 11:28-0400 BP Systolic 122 mm[Hg] Makayla Slarb SPACE SCIENCES DIRECTOR [facility] Work Phone: Comment on above: Patient Position: Sitting; Cuff Location : Left Arm; Cuff Size: Standard 05-17-2016 [id number]:280400 BSA (Body Surface Area) 1.94 m2 Makayla Slarb SPACE SCIENCES DIRECTOR [facility] Work Phone: 05-17-2016 11:28-0400 Height 175.26 cm Makayla Slarb SPACE SCIENCES DIRECTOR [facility] Work Phone: 05-17-2016 11:28-0400 Pulse (Heart Rate) 64 /min Makayla Slarb SPACE SCIENCES DIRECTOR Comprehensiv e [facility] Medicine Work Phone: Comment on above: Pattern: Regular 05-17-2016 11:28-0400 Pulse Oximetry 99 % Miesha Guillen [facility] Work Phone: Comment on above: Room air 05-17-2016 11:28-0400 Respiratory Rate 16 /min Makayla Slarb SPACE SCIENCES DIRECTOR [facility] Work Phone: Comment on above: Pattern: Unlabored 05-17-2016 11:28-0400 SaO2% (BldA) [Mass fraction] 99 % Makayla Slarb SPACE SCIENCES DIRECTOR [facility]; [facility] Work Phone: Comment on above: Room air 05-17-2016 11:28-0400 Weight 78.02 kg Miesha Guillen [facility] Medicine Work Phone: 12-03-2015 13:35-0400 BMI (Body Mass Index) 25.4 kg/m2 Lily Handley [facility] Internal Medicine Work Phone: 12-03-2015 13:35-0400 Body Temperature 95.4 [degF] Lily Handley [facility] Internal Medicine Work Phone: Comment on above: Method: Tympanic 12-03-2015 13:35-0400 Body weight 78.02 kg Lily Handley [facility] Medicine Work Phone: 12-03-2015 13:35-0400 BP Diastolic 66 mm[Hg] Lily Handley [facility] Medicine Work Phone: Comment on above: Patient Position: Sitting; Cuff Location : Left Arm; Cuff Size: Standard 12-03-2015 13:35-0400 BP Systolic 104 mm[Hg] Lily Handley [facility] Internal Medicine Work Phone: Comment on above: Patient Position: Sitting; Cuff Location : Left Arm; Cuff Size: Standard 12-03-2015 13:35-0400 BSA (Body Surface Area) 1.94 m2 Lily Handley [facility] Medicine Work Phone: 12-03-2015 13:35-0400 Height 175.26 cm Lily Handley [facility] Medicine Work Phone: 12-03-2015 13:35-0400 Pulse (Heart Rate) 64 /min Lily Handley [facility] Medicine Work Phone: Comment on above: Pattern: Regular 12-03-2015 13:35-0400 Pulse Oximetry 98 % Miesha Guillen [facility] Internal Medicine Work Phone: Comment on above: Room air 12-03-2015 13:35-0400 Respiratory Rate 18 /min Lily Handley [facility] Medicine Work Phone: Comment on above: Pattern: Unlabored 12-03-2015 13:35-0400 SaO2% (BldA) [Mass fraction] 98 % Lily Handley [facility]; [facility] Work Phone: Comment on above: Room air 12-03-2015 13:35-0400 Weight 78.02 kg Miesha Guillen [facility] Medicine Work Phone: 11-01-2015 13:19-0400 BMI (Body Mass Index) 25.99 kg/m2 Mary Francoen [facility] Internal Medicine Work Phone: 11-01-2015 13:19-0400 Body Temperature 98.7 [degF] Mary Orestes [facility] Internal Medicine Work Phone: Comment on above: Method: Temporal 11-01-2015 13:190400 Body weight 79.83 kg Mary Oresets [facility] Internal Medicine Work Phone: 11-01-2015 13:19-0400 BP Diastolic 72 mm[Hg] Mary Carlisle [facility] Internal Medicine Work Phone: Comment on above: Patient Position: Sitting; Cuff Location : Left Arm; Cuff Size: Standard 11-01-2015 13:190400 BP Systolic 110 mm[Hg] Mary Orestes [facility] Internal Medicine Work Phone: Comment on above: Patient Position: Sitting; Cuff Location : Left Arm; Cuff Size: Standard 11-01-2015 13:190400 BSA (Body Surface Area) 1.96 m2 Mary Carlisle [facility] Internal Medicine Work Phone: 11-01-2015 13:190400 Height 175.26 cm Mary Carlisle [facility] Internal Medicine Work Phone: 11-01-2015 13:19-0400 Pulse (Heart Rate) 76 /min Mary Francoensiv e Internal Medicine Work Phone: Comment on above: Pattern: Regular 11-01-2015 13:19-0400 Pulse Oximetry 98 % Miesha Guillen [facility] Internal Medicine Work Phone: Comment on above: Room air 11-01-2015 13:19-0400 Respiratory Rate 15 /min Mary Carlisle [facility] Internal Medicine Work Phone: Comment on above: Pattern: Unlabored 11-01-2015 13:19-0400 SaO2% (BldA) [Mass fraction] 98 % Mary Carlisle [facility]; [facility] Work Phone: Comment on above: Room air 11-01-2015 13:19-0400 Weight 79.83 kg Miesha Guillen [facility] Work Phone: 08-18-2015 09:56-0500 BMI (Body Mass Index) 25.55 kg/m2 Mindy Wynn [facility] Work Phone: 08-18-2015 09:56-0500 Body Temperature 98.1 [degF] Mindy Wynn [facility] Work Phone: Comment on above: Method: Temporal 08-18-2015 09:56-0500 Body weight 78.47 kg Mindy Wynn [facility] Work Phone: 08-18-2015 09:56-0500 BP Diastolic 62 mm[Hg] Mindy Wynn [facility] Work Phone: Comment on above: Patient Position: Sitting; Cuff Location : Left Arm; Cuff Size: Standard 08-18-2015 09:56-0500 BP Systolic 120 mm[Hg] Mindy Wynn [facility] Work Phone: Comment on above: Patient Position: Sitting; Cuff Location : Left Arm; Cuff Size: Standard 08-18-2015 09:56-0500 BSA (Body Surface Area) 1.94 m2 Mindy Wynn [facility] Work Phone: 08-18-2015 09:56-0500 Height 175.26 cm Mindy Wynn [facility] Internal Medicine Work Phone: 08-18-2015 09:56-0500 Pulse (Heart Rate) 81 /min Mindy Wynn [facility] Work Phone: Comment on above: Pattern: Regular 08-18-2015 09:56-0500 Pulse Oximetry 99 % Miesha Gulilen [facility] Internal Medicine Work Phone: Comment on above: Room air 08-18-2015 09:56-0500 Respiratory Rate 16 /min Mindy Wynn [facility] Internal Medicine Work Phone: Comment on above: Pattern: Unlabored 08-18-2015 09:56-0500 SaO2% (BldA) [Mass fraction] 99 % Mindy Wynn [facility] Internal Medicine; [facility] Internal Medicine Work Phone: Comment on above: Room air 08-18-2015 09:56-0500 Weight 78.47 kg Miesha Guillen [facility] Internal Medicine Work Phone: 09-18-2014 10:51-0500 BMI (Body Mass Index) 25.55 kg/m2 Lily Handley [facility] Internal Medicine Work Phone: 09-18-2014 10:51-0500 Body Temperature 99.3 [degF] Lily Handley [facility] Internal Medicine Work Phone: Comment on above: Method: Tympanic 09-18-2014 10:51-0500 Body weight 78.47 kg Lily Handley [facility] Internal Medicine Work Phone: 09-18-2014 10:51-0500 BP Diastolic 64 mm[Hg] Lily Handley [facility] Internal Medicine Work Phone: Comment on above: Patient Position: Sitting; Cuff Location : Left Arm; Cuff Size: Standard 09-18-2014 10:51-0500 BP Systolic 102 mm[Hg] Lily Handley [facility] Internal Medicine Work Phone: Comment on above: Patient Position: Sitting; Cuff Location : Left Arm; Cuff Size: Standard 09-18-2014 10:51-0500 BSA (Body Surface Area) 1.94 m2 Lily Handley [facility] Internal Medicine Work Phone: 09-18-2014 10:51-0500 Height 175.26 cm Lily Handley [facility] Internal Medicine Work Phone: 09-18-2014 10:51-0500 Pulse (Heart Rate) 73 /min Lily Handley [facility] Work Phone: Comment on above: Pattern: Regular 09-18-2014 10:51-0500 Pulse Oximetry 98 % Miesha Guillen [facility] Work Phone: Comment on above: Room air 09-18-2014 10:51-0500 Respiratory Rate 18 /min Lily Handley [facility] Internal Medicine Work Phone: Comment on above: Pattern: Unlabored 09-18-2014 10:51-0500 SaO2% (BldA) [Mass fraction] 98 % Lily Handley [facility] Internal [facility]; [facility] Work Phone: Comment on above: Room air 09-18-2014 10:51-0500 Weight 78.47 kg Miesha Guillen [facility] Work Phone: 05-27-2014 16:17-0400 BMI (Body Mass Index) 25.25 kg/m2 Makayla Slarb [employer] [facility] Work Phone: 05-27-2014 16:17-0400 Body Temperature 98.4 [degF] Makayla Slarb [employer] [facility] Work Phone: Comment on above: Method: Temporal 05-27-2014 16:17-0400 Body weight 77.57 kg Makayla Guillen [employer] [facility] Work Phone: 05-27-2014 16:17-0400 BSA (Body Surface Area) 1.93 m2 Makayla Slarb [employer] DIRECT[employer] [facility] Work Phone: 05-27-2014 16:17-0400 Height 175.26 cm Makaylanarayan Guillen [employer] [facility] Work Phone: 05-27-2014 16:17-0400 Weight 77.57 kg Miesha Guillen [facility] Work Phone: 04-22-2014 11:31-0400 BMI (Body Mass Index) 25.25 kg/m2 Mary Carlisle [facility] Internal Medicine Work Phone: 04-22-2014 11:31-0400 Body Temperature 98.3 [degF] Mary Carlisle [facility] Internal Medicine Work Phone: 04-22-2014 11:31-0400 Body weight 77.57 kg Mary Carlisle [facility] Internal Medicine Work Phone: 04-22-2014 11:31-0400 BP Diastolic 76 mm[Hg] Mary Carlisle [facility] Internal Medicine Work Phone: Comment on above: Patient Position: Sitting; Cuff Location : Left Arm; Cuff Size: Standard 04-22-2014 11:31-0400 BP Systolic 118 mm[Hg] Mary Carlisle [facility] Internal Medicine Work Phone: Comment on above: Patient Position: Sitting; Cuff Location : Left Arm; Cuff Size: Standard 04-22-2014 11:31-0400 BSA (Body Surface Area) 1.93 m2 Mray Carlisle [facility] Internal Medicine Work Phone: 04-22-2014 11:31-0400 Height 175.26 cm Mary Hardydane [facility] Internal Medicine Work Phone: 04-22-2014 11:31-0400 Pulse (Heart Rate) 72 /min Mary Carlisle [facility] Internal Medicine Work Phone: Comment on above: Pattern: Regular 04-22-2014 11:31-0400 Respiratory Rate 16 /min Mary Carlisle [facility] Internal Medicine Work Phone: Comment on above: Pattern: Unlabored 04-22-2014 11:31-0400 Weight 77.57 kg Miesha Guillen [facility] Internal Medicine Work Phone: 01-28-2014 09:03-0400 BMI (Body Mass Index) 25.1 kg/m2 Ronna A Fast DO Work Phone: [facility] Internal Medicine Work Phone: Comment on above: taking ibuprofen for fever - reports tem p 100.8 last pm 01-28-2014 09:03-0400 Body Temperature 98.8 [degF] Ronna A Fast DO Work Phone: [facility] Internal Medicine Work Phone: Comment on above: Method: Temporal taking ibuprofen for fever - reports temp 100.8 last pm 01-28-2014 09:03-0400 Body weight 77.11 kg Ronna A Fast DO Work Phone: [facility] Work Phone: Comment on above: taking ibuprofen for fever - reports tem p 100.8 last pm 01-28-2014 09:03-0400 BP Diastolic 70 mm[Hg] Ronna A Fast DO Work Phone: [facility] Work Phone: Comment on above: Patient Position: Sitting; Cuff Location : Left Arm; Cuff Size: Standard taking ibuprofen for fever - reports temp 100.8 last pm 01-28-2014 09:03-0400 BP Systolic 108 mm[Hg] Ronna A Fast DO Work Phone: [facility] Work Phone: Comment on above: Patient Position: Sitting; Cuff Location : Left Arm; Cuff Size: Standard taking ibuprofen for fever - reports temp 100.8 last pm 01-28-2014 09:03-0400 BSA (Body Surface Area) 1.93 m2 Ronna A Sansan DO Work Phone: [facility] Work Phone: Comment on above: taking ibuprofen for fever - reports tem p 100.8 last pm 01-28-2014 09:03-0400 Height 175.26 cm Ronna A Sansan DO Work Phone: [facility] Work Phone: Comment on above: taking ibuprofen for fever - reports tem p 100.8 last pm 01-28-2014 09:03-0400 Pulse (Heart Rate) 68 /min Ronna A Fast DO Work Phone: [facility] Work Phone: Comment on above: Pattern: Regular taking ibuprofen for fever - reports temp 100.8 last pm 01-28-2014 09:03-0400 Respiratory Rate 16 /min Ronna A Fast DO Work Phone: [facility] Work Phone: Comment on above: Pattern: Unlabored taking ibuprofen for fever - reports temp 100.8 last pm 01-28-2014 09:03-0400 Weight 77.11 kg Miesha Guillen [facility] Internal Medicine Work Phone: 06-19-2013 13:06-0500 BMI (Body Mass Index) 25.1 kg/m2 Mindy Wynn [facility] Internal Medicine Work Phone: 06-19-2013 13:06-0500 Body Temperature 98.5 [degF] Mindy Wynn [facility] Internal Medicine Work Phone: Comment on above: Method: Oral 06-19-2013 13:06-0500 Body weight 77.11 kg Mindy Wynn [facility] Internal Medicine Work Phone: 06-19-2013 13:06-0500 BP Diastolic 68 mm[Hg] Mindy Wynn [facility] Internal Medicine Work Phone: Comment on above: Patient Position: Sitting; Cuff Location : Left Arm; Cuff Size: Standard 06-19-2013 13:06-0500 BP Systolic 115 mm[Hg] Mindy Wynn [facility] Internal Medicine Work Phone: Comment on above: Patient Position: Sitting; Cuff Location : Left Arm; Cuff Size: Standard 06-19-2013 13:06-0500 BSA (Body Surface Area) 1.93 m2 Mindy Wynn [facility] Internal Medicine Work Phone: 06-19-2013 13:06-0500 [facility].26 [facility]: 06-19-2013 13:06-0500 Respiratory Rate 16 /min Mindy Wynn [facility] Internal Medicine Work Phone: Comment on above: Pattern: Unlabored 06-19-2013 13:06-0500 Weight 77.11 kg Miesha Guillen [facility] Internal Medicine Work Phone: 03-21-2013 07:29-0400 BMI (Body Mass Index) 25.1 kg/m2 [facility] Internal [facility] Work Phone: 03-21-2013 07:29-0400 Body Temperature 99.4 [degF] Mary Carlisle [facility] Internal Medicine Work Phone: 03-21-2013 07:29-0400 Body weight 77.11 kg Mary Carlisle [facility] Internal Medicine Work Phone: 03-21-2013 07:29-0400 BP Diastolic 60 mm[Hg] Mary Carlisle [facility] Internal Medicine Work Phone: Comment on above: Patient Position: Sitting; Cuff Location : Left Arm; Cuff Size: Large 03-21-2013 07:29-0400 BP Systolic 102 mm[Hg] Mary Carlisle [facility] Internal Medicine Work Phone: Comment on above: Patient Position: Sitting; Cuff Location : Left Arm; Cuff Size: Large 03-21-2013 07:29-0400 BSA (Body Surface Area) 1.93 m2 Mary Hardydane [facility] Internal Medicine Work Phone: 03-21-2013 07:29-0400 Height 175.26 cm Mary Carlisle [facility] Internal Medicine Work Phone: 03-21-2013 07:29-0400 Pulse (Heart Rate) 84 /min Mary Carlisle [facility] Internal Medicine Work Phone: Comment on above: Pattern: Regular 03-21-2013 07:29-0400 Respiratory Rate 16 /min Mary Hardydane [facility] Internal Medicine Work Phone: Comment on above: Pattern: Unlabored 03-21-2013 07:29-0400 Weight 77.11 kg Miesha Guillen [facility] Internal Medicine Work Phone: 03-17-2013 16:53-0400 BMI (Body Mass Index) 25.1 kg/m2 Mindy Wynn [facility] Internal Medicine Work Phone: 03-17-2013 16:53-0400 Body Temperature 99.1 [degF] Mindy Manchance [facility] Internal Medicine Work Phone: Comment on above: Method: Temporal 03-17-2013 16:53-0400 Body weight 77.11 kg Mindy Wynn [facility] Internal Medicine Work Phone: 03-17-2013 16:53-0400 BP Diastolic 64 mm[Hg] Mindy Wynn [facility] Internal Medicine Work Phone: Comment on above: Patient Position: Sitting; Cuff Location : Left Arm; Cuff Size: Standard 03-17-2013 16:53-0400 BP Systolic 112 mm[Hg] Mindy Wynn [facility] Internal Medicine Work Phone: Comment on above: Patient Position: Sitting; Cuff Location : Left Arm; Cuff Size: Standard 03-17-2013 16:53-0400 BSA (Body Surface Area) 1.93 m2 Mindy Wynn [facility] Internal Medicine Work Phone: 03-17-2013 16:53-0400 Height 175.26 cm Mindy Wynn [facility] Internal Medicine Work Phone: 03-17-2013 16:53-0400 Respiratory Rate 16 /min Mindy Wynn [facility] Internal Medicine Work Phone: Comment on above: Pattern: Unlabored 03-17-2013 16:53-0400 Weight 77.11 kg Miesha Guillen [facility] Internal Medicine Work Phone: 02-18-2013 11:19-0400 BMI (Body Mass Index) 24.96 kg/m2 Mary Carlisle [facility] Internal Medicine Work Phone: 02-18-2013 11:19-0400 Body Temperature 97.6 [degF] Mary Carlisle [facility] Internal Medicine Work Phone: 02-18-2013 11:19-0400 Body weight 76.66 kg Mary Carlisle [facility] Internal Medicine Work Phone: 02-18-2013 11:19-0400 BP Diastolic 62 mm[Hg] Mary Carlisle [facility] Internal Medicine Work Phone: Comment on above: Patient Position: Sitting; Cuff Location : Left Arm; Cuff Size: Large 02-18-2013 11:19-0400 BP Systolic 90 mm[Hg] Mary Carlisle [facility] Internal Medicine Work Phone: Comment on above: Patient Position: Sitting; Cuff Location : Left Arm; Cuff Size: Large 02-18-2013 11:19-0400 BSA (Body Surface Area) 1.92 m2 Mary Orestes [facility] Internal Medicine Work Phone: 02-18-2013 11:19-0400 Height 175.26 cm Mary Orestes [facility] Internal Medicine Work Phone: 02-18-2013 11:19-0400 Pulse (Heart Rate) 62 /min [facility] Work Phone: Comment on above: Pattern: Regular 02-18-2013 11:19-0400 Respiratory Rate 16 /min Mary Carlisle [facility] Internal Medicine Work Phone: Comment on above: Pattern: Unlabored 02-18-2013 11:19-0400 Weight 76.66 kg Miesha Guillen [facility] Internal Medicine Work Phone: 01-27-2013 13:43-0400 BMI (Body Mass Index) 25.1 kg/m2 Nivia Christensen RN Comprehens [facility]ignon Internal Medicine Work Phone: 01-27-2013 13:43-0400 Body Temperature 97 [degF] Nivia Christensen RN [facility] Work Phone: Comment on above: Method: Temporal 01-27-2013 13:43-0400 Body weight 77.11 kg Nivia Christensen RN [facility] Work Phone: 01-27-2013 13:43-0400 BP Diastolic 72 mm[Hg] Nivia Christensen RN [facility] Work Phone: Comment on above: Patient Position: Sitting; Cuff Location : Left Arm; Cuff Size: Standard 01-27-2013 13:43-0400 BP Systolic 126 mm[Hg] Nivia Christensen RN [facility] Work Phone: Comment on above: Patient Position: Sitting; Cuff Location : Left Arm; Cuff Size: Standard 01-27-2013 13:43-0400 BSA (Body Surface Area) 1.93 m2 Nivia Christensen RN [facility] Work Phone: 01-27-2013 13:43-0400 Height 175.26 cm Nivia Christensen RN [facility] Internal Medicine Work Phone: 01-27-2013 13:43-0400 Pulse (Heart Rate) 64 /min Nivia Christensen RN [facility] Internal Medicine Work Phone: Comment on above: Pattern: Regular 01-27-2013 13:43-0400 Pulse Oximetry 98 % Miesha Wilmer [facility] Internal Medicine Work Phone: Comment on above: Room air 01-27-2013 13:43-0400 Respiratory Rate 16 /min Nivia Christensen RN [facility] Work Phone: Comment on above: Pattern: Unlabored 01-27-2013 13:43-0400 SaO2% (BldA) [Mass fraction] 98 % Nivia Christensen RN [facility] Internal [facility]; [facility] Work Phone: Comment on above: Room air 01-27-2013 13:43-0400 Weight 77.11 kg Miesha Wilmer [facility] Internal Medicine Work Phone: 08-16-2012 07:16-0500 BMI (Body Mass Index) 25.1 kg/m2 Mary Carlisle [facility] Internal Medicine Work Phone: 08-16-2012 07:16-0500 Body Temperature 97.7 [degF] Mary Carlisle [facility] Internal Medicine Work Phone: 08-16-2012 07:16-0500 Body weight 77.11 kg aMry Carlisle [facility] Internal Medicine Work Phone: 08-16-2012 07:16-0500 BP Diastolic 60 mm[Hg] Mary Carlisle [facility] Internal Medicine Work Phone: Comment on above: Patient Position: Sitting; Cuff Location : Left Arm; Cuff Size: Large 08-16-2012 07:16-0500 BP Systolic 100 mm[Hg] Mary Carlisle [facility] Internal Medicine Work Phone: Comment on above: Patient Position: Sitting; Cuff Location : Left Arm; Cuff Size: Large 08-16-2012 07:16-0500 BSA (Body Surface Area) 1.93 m2 Mary Carlisle [facility] Internal Medicine Work Phone: 08-16-2012 07:16-0500 Height 175.26 cm Mary Carlisle [facility] Internal Medicine Work Phone: 08-16-2012 07:16-0500 Pulse (Heart Rate) 76 /min [facility] Work Phone: Comment on above: Pattern: Regular 08-16-2012 07:16-0500 Respiratory Rate 16 /min Mary Carlisle [facility] Internal Medicine Work Phone: Comment on above: Pattern: Unlabored 08-16-2012 07:16-0500 Weight 77.11 kg Miesha Guillen [facility] Internal Medicine Work Phone: 07-16-2012 11:59-0500 BMI (Body Mass Index) 24.51 kg/m2 Miesha Guillen [facility] Internal Medicine Work Phone: 07-16-2012 11:59-0500 Body Temperature 99.1 [degF] Miesha Guillen [facility] Internal Medicine Work Phone: Comment on above: Method: Oral 07-16-2012 11:59-0500 Body weight 75.3 kg Miesha Guillen [facility] Internal Medicine Work Phone: 07-16-2012 11:59-0500 BP Diastolic 72 mm[Hg] Miesha Guillen [facility] Internal Medicine Work Phone: Comment on above: Patient Position: Sitting; Cuff Location : Left Arm; Cuff Size: Standard 07-16-2012 11:59-0500 BP Systolic 132 mm[Hg] Miesha Guillen [facility] Internal Medicine Work Phone: Comment on above: Patient Position: Sitting; Cuff Location : Left Arm; Cuff Size: Standard 07-16-2012 11:59-0500 BSA (Body Surface Area) 1.91 m2 Miesha Guillen [facility] Internal Medicine Work Phone: 07-16-2012 11:59-0500 Height 175.26 cm Miesha Guillen [facility] Internal Medicine Work Phone: 07-16-2012 11:59-0500 Pulse (Heart Rate) 74 /min Miesha Guillen [facility] Internal Medicine Work Phone: Comment on above: Pattern: Regular 07-16-2012 11:59-0500 Pulse Oximetry 99 % Miesha Guillen [facility] Internal Medicine Work Phone: Comment on above: Room air 07-16-2012 11:59-0500 Respiratory Rate 18 /min Miesha Guillen [facility] Internal Medicine Work Phone: 07-16-2012 11:59-0500 SaO2% (BldA) [Mass fraction] 99 % Miesha Guillen DO Work Phone: [facility] Internal Medicine; [facility] Internal Medicine Work Phone: Comment on above: Room air 07-16-2012 11:59-0500 Weight 75.3 kg Miesha Guillen [facility] Internal Medicine Work Phone: 07-03-2012 08:26-0500 BMI (Body Mass Index) 24.51 kg/m2 Mary Carlisle [facility] Internal Medicine Work Phone: 07-03-2012 08:26-0500 Body Temperature 98.7 [degF] Mary Carlisle [facility] Internal Medicine Work Phone: 07-03-2012 08:26-0500 Body weight 75.3 kg Mary Carlisle [facility] Internal Medicine Work Phone: 07-03-2012 08:26-0500 BP Diastolic 70 mm[Hg] [facility] Work [facility]: Comment on above: Patient Position: Sitting; Cuff Location : Left Arm; Cuff Size: Large 07-03-2012 08:26-0500 BP Systolic 104 mm[Hg] Mary Carlisle [facility] Internal Medicine Work Phone: Comment on above: Patient Position: Sitting; Cuff Location : Left Arm; Cuff Size: Large 07-03-2012 08:26-0500 BSA (Body Surface Area) 1.91 m2 Mary Carlisle [facility] Internal Medicine Work Phone: 07-03-2012 08:26-0500 Height 175.26 cm Mary Carlisle [facility] Internal Medicine Work Phone: 07-03-2012 08:26-0500 Pulse (Heart Rate) 84 /min Mary Carlisle [facility] Internal Medicine Work Phone: Comment on above: Pattern: Regular 07-03-2012 08:26-0500 Respiratory Rate 16 /min Mary Carlisle [facility] Internal Medicine Work Phone: Comment on above: Pattern: Unlabored 07-03-2012 08:26-0500 Weight 75.3 kg Miesha Guillen [facility] Internal Medicine Work Phone: 04-22-2012 12:15-0400 BMI (Body Mass Index) 24.07 kg/m2 [facility] Internal Medicine Work Phone: 04-22-2012 12:15-0400 Body Temperature 97.1 [degF] Mary Carlisle [facility] Internal Medicine Work Phone: 04-22-2012 12:15-0400 Body weight 73.94 kg Mary Carlisle [facility] Internal Medicine Work Phone: 04-22-2012 12:15-0400 BP Diastolic 74 mm[Hg] Mary Carlisle [facility] Internal Medicine Work Phone: Comment on above: Patient Position: Sitting; Cuff Location : Left Arm; Cuff Size: Large 04-22-2012 12:15-0400 BP Systolic 130 mm[Hg] Mary Carlisle [facility] Internal Medicine Work Phone: Comment on above: Patient Position: Sitting; Cuff Location : Left Arm; Cuff Size: Large 04-22-2012 12:15-0400 BSA (Body Surface Area) 1.89 m2 Mary Carlisle [facility] Internal Medicine Work Phone: 04-22-2012 12:15-0400 Height 175.26 cm [facility] Work [facility]: 04-22-2012 12:15-0400 Pulse (Heart Rate) 72 /min Mary Carlisle [facility] Internal Medicine Work Phone: Comment on above: Pattern: Regular 04-22-2012 12:15-0400 Respiratory Rate 16 /min Mary Carlisle [facility] Internal Medicine Work Phone: Comment on above: Pattern: Unlabored 04-22-2012 12:15-0400 Weight 73.94 kg Miesha Guillen [facility] Internal Medicine Work Phone: 03-20-2012 15:44-0400 BMI (Body Mass Index) 24.07 kg/m2 Mary Carlisle [facility] Work Phone: 03-20-2012 15:44-0400 Body Temperature 97.8 [degF] Mary Carlisle [facility] Internal Medicine Work Phone: 03-20-2012 15:44-0400 Body weight 73.94 kg Mary Carlisle [facility] Internal Medicine Work Phone: 03-20-2012 15:44-0400 BP Diastolic 70 mm[Hg] Mary Carlisle [facility] Internal Medicine Work Phone: Comment on above: Patient Position: Sitting; Cuff Location : Left Arm; Cuff Size: Large 03-20-2012 15:44-0400 BP Systolic 102 mm[Hg] Mary Carlisle [facility] Internal Medicine Work Phone: Comment on above: Patient Position: Sitting; Cuff Location : Left Arm; Cuff Size: Large 03-20-2012 15:44-0400 BSA (Body Surface Area) 1.89 m2 Mary Carlisle [facility] Internal Medicine Work Phone: 03-20-2012 15:44-0400 Height 175.26 cm Mary Carlisle [facility] Internal Medicine Work Phone: 03-20-2012 15:44-0400 Pulse (Heart Rate) 64 /min Mary Carlisle [facility] Internal Medicine Work Phone: Comment on above: Pattern: Regular 03-20-2012 15:44-0400 Respiratory Rate 16 /min Mary Hardydane [facility] Internal Medicine Work Phone: Comment on above: Pattern: Unlabored 03-20-2012 15:44-0400 Weight 73.94 kg Miesha Guillen [facility] Internal Medicine Work Phone: 09-29-2011 10:39-0500 BMI (Body Mass Index) 23.48 kg/m2 Mary Orestes [facility] Internal Medicine Work Phone: 09-29-2011 10:39-0500 Body Temperature 98 [degF] Mary Orestes [facility] Internal Medicine Work Phone: 09-29-2011 10:39-0500 Body weight 72.12 kg Mary Orestes [facility] Internal Medicine Work Phone: 09-29-2011 10:39-0500 BP Diastolic 72 mm[Hg] Mary Orestes [facility] Internal Medicine Work Phone: Comment on above: Patient Position: Sitting; Cuff Location : Left Arm; Cuff Size: Standard 09-29-2011 10:39-0500 BP Systolic 110 mm[Hg] Mary Orestes [facility] Internal Medicine Work Phone: Comment on above: Patient Position: Sitting; Cuff Location : Left Arm; Cuff Size: Standard 09-29-2011 10:39-0500 BSA (Body Surface Area) 1.87 m2 Mary Orestes [facility] Internal Medicine Work Phone: 09-29-2011 10:39-0500 Height 175.26 cm Mary Orestes [facility] Internal Medicine Work Phone: 09-29-2011 10:39-0500 Pulse (Heart Rate) 72 /min Mary Orestes Comprehens[facility] Internal Medicine Work Phone: Comment on above: Pattern: Regular 09-29-2011 10:39-0500 Pulse Oximetry 100 % Miesha Guillen [facility] Internal Medicine Work Phone: Comment on above: Room air 09-29-2011 10:39-0500 Respiratory Rate 16 /min Mary Carlisle [facility] Internal Medicine Work Phone: Comment on above: Pattern: Unlabored 09-29-2011 10:39-0500 SaO2% (BldA) [Mass fraction] 100 % Mary Orestes [facility] Internal [facility]; [facility] Work Phone: Comment on above: Room air 09-29-2011 10:39-0500 Weight 72.12 kg Miesha Guillen [facility] Internal Medicine Work Phone: 03-07-2011 08:20-0400 BMI (Body Mass Index) 25.56 kg/m2 Yudithleda Doshi [facility] Internal Medicine Work Phone: 03-07-2011 08:20-0400 Body Temperature 97.9 [degF] [facility] Internal Medicine Work Phone: Comment on above: Method: Oral 03-07-2011 08:20-0400 Body weight 78.5 kg [facility] Internal Medicine Work Phone: 03-07-2011 08:20-0400 BP Diastolic 60 mm[Hg] [facility] Internal Medicine Work Phone: Comment on above: Patient Position: Supine; Cuff Location: Left Arm; Cuff Size: Standard 03-07-2011 08:20-0400 BP Systolic 102 mm[Hg] [facility] Internal Medicine Work Phone: Comment on above: Patient Position: Supine; Cuff Location: Left Arm; Cuff Size: Standard 03-07-2011 08:20-0400 BSA (Body Surface Area) 1.94 m2 [facility] Internal Medicine Work Phone: 03-07-2011 08:20-0400 Height 175.26 cm [facility] Internal Medicine Work Phone: 03-07-2011 08:20-0400 Pulse (Heart Rate) 60 /min [facility] Internal Medicine Work Phone: Comment on above: Pattern: Regular 03-07-2011 08:20-0400 Respiratory Rate 16 /min [facility] Internal Medicine Work Phone: Comment on above: Pattern: Unlabored 03-07-2011 08:20-0400 Weight 78.5 kg Miesha Guillen [facility] Internal Medicine Work Phone: 02-28-2011 08:52-0400 BMI (Body Mass Index) 25.29 kg/m2 Miesha Brothers [facility] Internal Medicine Work Phone: 02-28-2011 08:52-0400 Body Temperature 98.3 [degF] Miesha Guillen [facility] Internal Medicine Work Phone: Comment on above: Method: Oral 02-28-2011 08:52-0400 Body weight 77.68 kg Miesha Guillen [facility] Internal Medicine Work Phone: 02-28-2011 08:52-0400 BP Diastolic 84 mm[Hg] Miesha Guillen [facility] Internal Medicine Work Phone: Comment on above: Patient Position: Sitting; Cuff Location : Left Arm; Cuff Size: Standard 02-28-2011 08:52-0400 BP Systolic 132 mm[Hg] Miesha Guillen [facility] Internal Medicine Work Phone: Comment on above: Patient Position: Sitting; Cuff Location : Left Arm; Cuff Size: Standard 02-28-2011 08:52-0400 BSA (Body Surface Area) 1.93 m2 Miesha Guillen [facility] Internal Medicine Work Phone: 02-28-2011 08:52-0400 Height 175.26 cm Miesha Guillen [facility] Internal Medicine Work Phone: 02-28-2011 08:52-0400 Pulse (Heart Rate) 72 /min Miesha Guillen [facility] Internal Medicine Work Phone: Comment on above: Pattern: Regular 02-28-2011 08:52-0400 Pulse Oximetry 99 % Miesha Guillen [facility] Internal Medicine Work Phone: Comment on above: Room air 02-28-2011 08:52-0400 Respiratory Rate 18 /min Miesha Guillen [facility] Internal Medicine Work Phone: Comment on above: Pattern: Unlabored 02-28-2011 08:52-0400 SaO2% (BldA) [Mass fraction] 99 % Miesha Guillen DO Work Phone: [facility] Internal Medicine; [facility] Internal Medicine Work Phone: Comment on above: Room air 02-28-2011 08:52-0400 Weight 77.68 kg Miesha Guillen [facility] Internal Medicine Work Phone: 06-14-2010 09:18-0500 Body Temperature 98.5 [degF] Mary Orestes [facility] Internal Medicine Work Phone: 06-14-2010 09:18-0500 Body weight 96.62 kg Mary Orestes [facility] Internal Medicine Work Phone: 06-14-2010 09:18-0500 BP Diastolic 80 mm[Hg] Mary Orestes [facility] Internal Medicine Work Phone: Comment on above: Patient Position: Sitting; Cuff Location : Left Arm; Cuff Size: Large 06-14-2010 09:18-0500 BP Systolic 120 mm[Hg] Mary Orestes [facility] Internal Medicine Work Phone: Comment on above: Patient Position: Sitting; Cuff Location : Left Arm; Cuff Size: Large 06-14-2010 09:18-0500 Pulse (Heart Rate) 84 /min Mary Orestes [facility] Internal Medicine Work Phone: Comment on above: Pattern: Regular 06-14-2010 09:18-0500 Respiratory Rate 18 /min Mary Orestes [facility] Internal Medicine Work Phone: Comment on above: Pattern: Unlabored 06-14-2010 09:18-0500 Weight 96.62 kg Miesha Guillen [facility] Internal Medicine Work Phone: 03-18-2010 07:58-0400 Body Temperature 98.1 [degF] Miesha Guillen [facility] Internal Medicine Work Phone: Comment on above: Method: Oral 03-18-2010 07:58-0400 BP Diastolic 78 mm[Hg] Miesha Guillen [facility] Internal Medicine Work Phone: Comment on above: Patient Position: Sitting; Cuff Location : Left Arm; Cuff Size: Standard 03-18-2010 07:58-0400 BP Systolic 108 mm[Hg] Miesha Guillen [facility] Internal Medicine Work Phone: Comment on above: Patient Position: Sitting; Cuff Location : Left Arm; Cuff Size: Standard 03-18-2010 07:58-0400 Pulse (Heart Rate) 68 /min Miesha Guillen [facility] Internal Medicine Work Phone: Comment on above: Pattern: Regular 03-18-2010 07:58-0400 Respiratory Rate 18 /min Miesha Guillen [facility] Internal Medicine Work Phone: Comment on above: Pattern: Unlabored 03-01-2010 15:15-0400 Body Temperature 98 [degF] aMry Sepulvedatricia [facility] Internal Medicine Work Phone: 03-01-2010 15:15-0400 Body weight 96.62 kg Mary Sepulvedatricia [facility] Internal Medicine Work Phone: 03-01-2010 15:15-0400 BP Diastolic 84 mm[Hg] Mary Sepulvedatricia [facility] Internal Medicine Work Phone: Comment on above: Patient Position: Sitting; Cuff Location : Left Arm; Cuff Size: Standard 03-01-2010 15:15-0400 BP Systolic 134 mm[Hg] Mary Hardydane [facility] Internal Medicine Work Phone: Comment on above: Patient Position: Sitting; Cuff Location : Left Arm; Cuff Size: Standard 03-01-2010 15:15-0400 Pulse (Heart Rate) 80 /min Mary Sepulvedatricia [facility] Internal Medicine Work Phone: Comment on above: Pattern: Regular 03-01-2010 15:15-0400 Respiratory Rate 18 /min Mary Sepulvedatricia [facility] Internal Medicine Work Phone: Comment on above: Pattern: Unlabored 03-01-2010 15:15-0400 Weight 96.62 kg Miesha Guillen [facility] Internal Medicine Work Phone: 01-11-2010 09:43-0400 Body weight 95.71 kg Mary Hardydane [facility] Internal Medicine Work Phone: 01-11-2010 09:43-0400 BP Diastolic 84 mm[Hg] Mary Carlisle [facility] Internal Medicine Work Phone: Comment on above: Patient Position: Sitting; Cuff Location : Left Arm; Cuff Size: Standard 01-11-2010 09:43-0400 BP Systolic 122 mm[Hg] Mary Carlisle [facility] Internal Medicine Work Phone: Comment on above: Patient Position: Sitting; Cuff Location : Left Arm; Cuff Size: Standard 01-11-2010 09:43-0400 Pulse (Heart Rate) 88 /min Mary Carlisle [facility] Internal Medicine Work Phone: Comment on above: Pattern: Regular 01-11-2010 09:43-0400 Respiratory Rate 18 /min Mary Carlisle [facility] Internal Medicine Work Phone: Comment on above: Pattern: Unlabored 01-11-2010 09:43-0400 Weight 95.71 kg Miesha Guillen [facility] Internal Medicine Work Phone: 09-10-2009 08:44-0500 Body Temperature 98.3 [degF] Mary Carlisle [facility] Internal Medicine Work Phone: 09-10-2009 08:44-0500 Body weight 96.16 kg Mary Carlisle [facility] Internal Medicine Work Phone: 09-10-2009 08:44-0500 BP Diastolic 82 mm[Hg] Mary Carlisle [facility] Internal Medicine Work Phone: Comment on above: Patient Position: Standing; Cuff Locatio n: Left Arm; Cuff Size: Large 09-10-2009 08:44-0500 BP Systolic 114 mm[Hg] Mary Carlisle [facility] Internal Medicine Work Phone: Comment on above: Patient Position: Standing; Cuff Locatio n: Left Arm; Cuff Size: Large 09-10-2009 08:44-0500 Pulse (Heart Rate) 72 /min Mary Carlisle [facility] Internal Medicine Work Phone: Comment on above: Pattern: Regular 09-10-2009 08:44-0500 Respiratory Rate 18 /min Mary Carlisle [facility] Internal Medicine Work Phone: Comment on above: Pattern: Unlabored 09-10-2009 08:44-0500 Weight 96.16 kg Miesha Guillen [facility] Internal Medicine Work Phone: 05-03-2009 14:54-0400 Body Temperature 96.2 [degF] Mary Carlisle [facility] Internal Medicine Work Phone: Comment on above: Method: Undefined 05-03-2009 14:54-0400 Body weight 92.08 kg Mary Carlisle [facility] Internal Medicine Work Phone: 05-03-2009 14:54-0400 BP Diastolic 66 mm[Hg] Mary Carlisle [facility] Internal Medicine Work Phone: Comment on above: Patient Position: Sitting; Cuff Location : Left Arm; Cuff Size: Large 05-03-2009 14:54-0400 BP Systolic 118 mm[Hg] Mary Carlisle [facility] Internal Medicine Work Phone: Comment on above: Patient Position: Sitting; Cuff Location : Left Arm; Cuff Size: Large 05-03-2009 14:54-0400 Head Circumference 0 cm Miesha Guillen [facility] Internal Medicine Work Phone: 05-03-2009 14:54-0400 Head Occipital-frontal circumference 0 cm Mary Carlisle [facility]; [facility] Work Phone: 05-03-2009 14:54-0400 Height 0 cm Mary Sepulvedatricia [facility] Internal Medicine Work Phone: 05-03-2009 14:54-0400 Pulse (Heart Rate) 84 /min Mary Carlisle [facility] Internal Medicine Work Phone: Comment on above: Pattern: Regular 05-03-2009 14:54-0400 Respiratory Rate 16 /min Mary Carlisle [facility] Internal Medicine Work Phone: Comment on above: Pattern: Undefined 05-03-2009 14:54-0400 Weight 92.08 kg Miesha Guillen [facility] Internal Medicine Work Phone: 03-29-2009 11:35-0400 Body Temperature 98.5 [degF] Mary Carlisle [facility] Internal Medicine Work Phone: Comment on above: Method: Undefined 03-29-2009 11:35-0400 Body weight 92.08 kg Mary Carlisle [facility] Internal Medicine Work Phone: 03-29-2009 11:35-0400 BP Diastolic 84 mm[Hg] Mary Carlisle [facility] Internal Medicine Work Phone: Comment on above: Patient Position: Sitting; Cuff Location : Left Arm; Cuff Size: Large 03-29-2009 11:35-0400 BP Systolic 134 mm[Hg] Mary Carlisle [facility] Internal Medicine Work Phone: Comment on above: Patient Position: Sitting; Cuff Location : Left Arm; Cuff Size: Large 03-29-2009 11:35-0400 Head Circumference 0 cm Miesha Guillen [facility] Internal Medicine Work Phone: 03-29-2009 11:35-0400 Head Occipital-frontal circumference 0 cm Mary Carlisle [facility]; [facility] Work Phone: 03-29-2009 11:35-0400 Height 0 cm Mary Carlisle [facility] Internal Medicine Work Phone: 03-29-2009 11:35-0400 Pulse (Heart Rate) 72 /min Mary Carlisle [facility] Internal Medicine Work Phone: Comment on above: Pattern: Regular 03-29-2009 11:35-0400 Respiratory Rate 16 /min Mary Carlisle [facility] Internal Medicine Work Phone: Comment on above: Pattern: Undefined 03-29-2009 11:35-0400 Weight 92.08 kg Miesha Guillen [facility] Internal Medicine Work Phone: 10-12-2008 15:48-0400 Body Temperature 98 [degF] [facility] Work [facility]: Comment on above: Method: Oral 10-12-2008 15:48-0400 Body weight 90.78 kg Amos [facility] Internal Medicine Work Phone: 10-12-2008 15:48-0400 BP Diastolic 80 mm[Hg] [facility] Internal Medicine Work Phone: Comment on above: Patient Position: Sitting; Cuff Location : Left Arm; Cuff Size: Large 10-12-2008 15:48-0400 BP Systolic 118 mm[Hg] Amos [facility] Internal Medicine Work Phone: Comment on above: Patient Position: Sitting; Cuff Location : Left Arm; Cuff Size: Large 10-12-2008 15:48-0400 Head Circumference 0 cm Miesha Guillen [facility] Internal Medicine Work Phone: 10-12-2008 15:48-0400 Head Occipital-frontal circumference 0 cm Amos [facility] Internal Medicine; [facility] Work Phone: 10-12-2008 15:48-0400 Height 0 cm Amos [facility] Internal Medicine Work Phone: 10-12-2008 15:48-0400 Pulse (Heart Rate) 73 /min [facility] Internal Medicine Work Phone: Comment on above: Pattern: Regular 10-12-2008 15:48-0400 Pulse Oximetry 98 % Miesha Guillen [facility] Internal Medicine Work Phone: Comment on above: Room air 10-12-2008 15:48-0400 Respiratory Rate 18 /min Amos [facility] Internal Medicine Work Phone: Comment on above: Pattern: Unlabored 10-12-2008 15:48-0400 SaO2% (BldA) [Mass fraction] 98 % [facility] Internal Medicine; [facility] Work Phone: Comment on above: Room air 10-12-2008 15:48-0400 Weight 90.78 kg Miesha Guillen [facility] Internal Medicine Work Phone: 07-03-2007 10:01-0500 Body Temperature 98.3 [degF] Mary Carlisle [facility] Internal Medicine Work Phone: Comment on above: Method: Oral 07-03-2007 10:01-0500 Body weight 0 kg Mary Carlisle [facility] Internal Medicine Work Phone: 07-03-2007 10:01-0500 BP Diastolic 80 mm[Hg] Mary Carlisle [facility] Internal Medicine Work Phone: Comment on above: Patient Position: Sitting; Cuff Location : Right Arm; Cuff Size: Standard 07-03-2007 10:01-0500 BP Systolic 120 mm[Hg] Mary Carlisle [facility] Internal Medicine Work Phone: Comment on above: Patient Position: Sitting; Cuff Location : Right Arm; Cuff Size: Standard 07-03-2007 10:01-0500 Head Circumference 0 cm Miesha Guillen [facility] Internal Medicine Work Phone: 07-03-2007 10:01-0500 Head Occipital-frontal circumference 0 cm Mary Carlisle [facility]; [facility] Work Phone: 07-03-2007 10:01-0500 Height 0 cm Mary Carlisle [facility] Internal Medicine Work Phone: 07-03-2007 10:01-0500 Pulse (Heart Rate) 84 /min Mary Carlisle [facility] Internal Medicine Work Phone: Comment on above: Pattern: Regular 07-03-2007 10:01-0500 Respiratory Rate 16 /min Mary Carlisle [facility] Internal Medicine Work Phone: Comment on above: Pattern: Unlabored 07-03-2007 10:01-0500 Weight 0 kg Miesha Guillen [facility] Internal Medicine Work Phone: 03-11-2007 16:12-0400 Body Temperature 97.6 [degF] Deidre Jessica [facility] Internal Medicine Work Phone: Comment on above: Method: Oral 03-11-2007 16:12-0400 Body weight 89.36 kg Deidre Jessica [facility] Internal Medicine Work Phone: 03-11-2007 16:12-0400 BP Diastolic 76 mm[Hg] Deidre Jessica [facility] Internal Medicine Work Phone: Comment on above: Patient Position: Sitting; Cuff Location : Right Arm; Cuff Size: Standard 03-11-2007 16:12-0400 BP Systolic 130 mm[Hg] Deidre Jessica [facility] Internal Medicine Work Phone: Comment on above: Patient Position: Sitting; Cuff Location : Right Arm; Cuff Size: Standard 03-11-2007 16:12-0400 Head Circumference 0 cm Miesha Guillen [facility] Internal Medicine Work Phone: 03-11-2007 16:12-0400 Head Occipital-frontal circumference 0 cm Deidre Jessica [facility]; [facility] Work Phone: 03-11-2007 16:12-0400 Height 0 cm Deidre Jessica [facility] Internal Medicine Work Phone: 03-11-2007 16:12-0400 Pulse (Heart Rate) 68 /min Deidre [facility] Internal Medicine Work Phone: Comment on above: Pattern: Regular 03-11-2007 16:12-0400 Respiratory Rate 16 /min Deidre [facility] Internal Medicine Work Phone: Comment on above: Pattern: Unlabored 03-11-2007 16:12-0400 Weight 89.36 kg Miesha Guillen [facility] Internal Medicine Work Phone: 07-31-2006 08:20-0500 Body Temperature 99.2 [degF] Mary Cocodcdane [facility] Internal Medicine Work Phone: Comment on above: Method: Oral 07-31-2006 08:20-0500 Body weight 95.4 kg Mary Carlisle [facility] Internal Medicine Work Phone: 07-31-2006 08:20-0500 BP Diastolic 90 mm[Hg] Mary [facility] Internal Medicine Work Phone: Comment on above: Patient Position: Sitting; Cuff Location : Right Arm; Cuff Size: Large 07-31-2006 08:20-0500 BP Systolic 138 mm[Hg] Mary Carlisle [facility] Internal Medicine Work Phone: Comment on above: Patient Position: Sitting; Cuff Location : Right Arm; Cuff Size: Large 07-31-2006 08:20-0500 Head Circumference 0 cm Miesha Guillen [facility] Internal Medicine Work Phone: 07-31-2006 08:20-0500 Head Occipital-frontal circumference 0 cm Mary Hardydane [facility]; [facility] Work Phone: 07-31-2006 08:20-0500 Height 0 cm Mary Carlisle [facility] Internal Medicine Work Phone: 07-31-2006 08:20-0500 Pulse (Heart Rate) 80 /min Mary Carlisle [facility] Internal Medicine Work Phone: Comment on above: Pattern: Regular 07-31-2006 08:20-0500 Respiratory Rate 16 /min Mary Carlisle [facility] Internal Medicine Work Phone: Comment on above: Pattern: Unlabored 07-31-2006 08:20-0500 Weight 95.4 kg Miesha Guillen [facility] Internal Medicine Work Phone: 05-22-2006 14:46-0400 BMI (Body Mass Index) 29.39 kg/m2 Miesha Guillen [facility] Internal Medicine Work Phone: 05-22-2006 14:46-0400 Body Temperature 98.3 [degF] Miesha Guillen [facility] Internal Medicine Work Phone: Comment on above: Method: Oral 05-22-2006 14:46-0400 Body weight 90.27 kg Miesha Guillen [facility] Internal Medicine Work Phone: 05-22-2006 14:46-0400 BP Diastolic 78 mm[Hg] Miesha Guillen [facility] Internal Medicine Work Phone: Comment on above: Patient Position: Sitting; Cuff Location : Undefined; Cuff Size: Undefined 05-22-2006 14:46-0400 BP Systolic 118 mm[Hg] Miesha Guillen [facility] Internal Medicine Work Phone: Comment on above: Patient Position: Sitting; Cuff Location : Undefined; Cuff Size: Undefined 05-22-2006 14:46-0400 BSA (Body Surface Area) 2.06 m2 Miesha Guillen [facility] Internal Medicine Work Phone: 05-22-2006 14:46-0400 Head Circumference 0 cm Miesha Guillen [facility] Work Phone: 05-22-2006 14:46-0400 Head Occipital-frontal circumference 0 cm Miesha Guillen DO Work Phone: [facility]; [facility] Work Phone: 05-22-2006 14:46-0400 Height 175.26 cm Miesha Guillen [facility] Work Phone: 05-22-2006 14:46-0400 Pulse (Heart Rate) 66 /min Miesha Guillen [facility] Work Phone: Comment on above: Pattern: Regular 05-22-2006 14:46-0400 Respiratory Rate 16 /min Miesha Guillen [facility] Work Phone: Comment on above: Pattern: Undefined 05-22-2006 14:46-0400 Weight 90.27 kg Miesha Guillen [facility] Work Phone: Encounters Encounter Date Encounter Type Care Provider Facility Start: 07-21-2025 ambulatory José Miguel Woods Facility :[facility] Start: 07-08-2025 ambulatory Cristobal Chua lity:[facility] Start: 06-01-2025 Encounter for gyneco logical examination (general) (routine) without abnormal findings Miesha Guillen [facility] Start: 06-01-2025 End: 06-01-2025 ambulatory Mieshashyam Guillen Facility:[facility] Start: 01-15-2025 End: 01-15-2025 ambulatory MIESHASHYAM GUILLEN Facility:[facility] Start: 01-13-2025 End: 01-13-2025 Telephone encounter Sp Lang DO Work Phone: Hematology/Oncology Comment on above: Insurance Authorizat ion Start: 07-18-2024 End: 07-18-2024 ambulatory SP LANG Facility:[facility] Start: 07-18-2024 End: 07-18-2024 Office outpatient visit 15 minutes Sp Lang DO Work Phone: Hematology/Oncology Comment on above: CML (chronic myelocy tic leukemia) (HCC) (Primary Dx) Start: 06-30-2024 End: 06-30-2024 ambulatory SP LANG Facility:[facility] Start: 04-09-2024 End: 04-09-2024 ambulatory MIESHA GUILLEN Facility:[facility] Start: 01-01-2024 End: 01-01-2024 ambulatory Sp Narayan Precious DO Work Phone: Hematology/Oncology Comment on above: CML (chronic myelocy tic leukemia) (HCC) (Primary Dx) Start: 01-01-2024 End: 01-01-2024 Patient encounter procedure Sp Narayan Precious DO Work Phone: Hematology/Oncology Start: 11-16-2023 Orders Only Sp Lang D O Work Phone: Hematology/Oncology Comment on above: Personal history of lymphoid leukemia (Primary Dx); CML (chronic myelocytic leukemia) (HCC) Start: 10-18-2023 ambulatory Sp Nation O Work Phone: Hematology/Oncology Comment on above: Pre-authorization Start: 08-30-2023 End: 08-30-2023 ambulatory Mary L Sabiha MCGILLFAMILY SERVICES ASSISTANT Work Phone: [facility] Comment on above: Multiple sclerosis ( HCC) (Primary Dx); Encounter for long-term (current) use of medications; Demyelinating disease of central nervous system (HCC) Start: 08-30-2023 End: 08-30-2023 Telemedicine consultation with patient Mary Grewal Enochhola FAMILY SERVICES ASSISTANT Work Phone: [facility] Start: 08-30-2023 End: 08-30-2023 Subsequent hospital visit by physician [employer] [facility] (I-Stat/1.5t) Work Phone: Radiology Comment on above: Multiple sclerosis ( HCC) [G35] Start: 07-26-2023 End: 07-26-2023 Subsequent hospital visit by physician John [address] Comment on above: Pure hypercholestero lemia, unspecified Start: 07-26-2023 End: 07-26-2023 ambulatory MIESHA GUILLEN [facility] Start: 06-14-2023 End: 06-14-[address] [facility] Work Phone: Start: 06-14-2023 End: 06-14-2023 Patient encounter procedure [facility] Work Phone: Start: 05-25-2023 End: 05-25-2023 ambulatory Sp Lang DO Work Phone: Hematology/Oncology Comment on above: CML (chronic myelocy tic leukemia) (HCC) (Primary Dx) Start: 05-25-2023 End: 05-25-2023 Patient encounter procedure Sp Narayan Lang DO Work Phone: [facility] Start: 05-16-2023 Orders Only Sp Narayan Lang D O Work Phone: Hematology/Oncology Comment on above: CML (chronic myelocy tic leukemia) (HCC) (Primary Dx) Start: 04-17-2023 Telephone encounter Sharmila Camarillo RN Work Phone: Mammography Comment on above: Results Start: 04-16-2023 ambulatory MIESHA JULIO GUILLEN Facility:[facility] Start: 04-16-2023 End: 04-16-2023 Subsequent hospital visit by physician Procedure Mammo [facility] Work Phone: Mammography Comment on above: Abnormal finding on breast imaging [R92.8] Start: 03-30-2023 End: 03-31-2023 ambulatory MIESHASHYAM GUILLEN Facility:[facility] Start: 03-30-2023 End: 03-30-2023 Patient encounter procedure Mikayla Keller PA-C Work Phone: Orthopaedics Comment on above: Biceps tendonitis of both shoulders (Primary Dx) Abnormal finding on breast imaging (Primary Dx) Intraductal papillom a of left breast (Primary Dx); Abnormal mammogram of right breast Start: 03-30-2023 End: 03-30-2023 Subsequent hospital visit by physician Diagnostic Mammo [address] [place] Work Phone: Mammography Start: 02-27-2023 End: 02-27-2023 Patient encounter procedure Maryzoey Landis APRN.CNP Work Phone: [facility] Comment on above: Multiple sclerosis ( HCC) (Primary Dx) Start: 02-26-2023 End: 02-26-[address] [facility] Work Phone: Start: 02-26-2023 End: 02-26-2023 Patient encounter procedure [facility] Work Phone: Start: 02-19-2023 End: 02-19-2023 Office outpatient visit 15 minutes Miesha Millanon DO Work Phone: [facility] Start: 02-14-2023 Orders Only Sp Medina Work Phone: Hematology/Oncology Comment on above: Personal history of lymphoid leukemia (Primary Dx); CML (chronic myelocytic leukemia) (HCC) Start: 02-13-2023 End: 02-13-[address] [facility] Work Phone: Start: 02-13-2023 End: 02-13-2023 Patient encounter procedure [facility]-Outpatient Bone Densitometry Work Phone: Start: 01-19-2023 ambulatory Sp Medina Work Phone: Hematology/Oncology Comment on above: preauthorization Start: 01-11-2023 End: 01-11-2023 Office outpatient visit 40 minutes Miesha Millanon DO Work Phone: [facility] Start: 12-07-2022 End: 12-07-2022 Patient encounter procedure Mikayla Keller PA-C Work Phone: Orthopaedics Comment on above: Biceps tendonitis on left (Primary Dx) Start: 11-30-2022 End: 11-30-2022 Subsequent hospital visit by physician Xr [facility] Work Phone: Radiology Comment on above: Pain [R52] Start: 11-20-2022 Orders Only Mikayla Bettencourt e PA-C Work Phone: [facility] [place] Comment on above: Pain (Primary Dx) Start: 11-07-2022 Orders Only Sp Medina Work Phone: Hematology/Oncology Comment on above: Personal history of lymphoid leukemia (Primary Dx); Chronic myeloid leukemia (HCC) Start: 11-01-2022 ambulatory Sp Medina Work Phone: Hematology/Oncology Comment on above: preauthorization Start: 08-30-2022 End: 08-30-2022 Patient encounter procedure Mary Landis APRN.FAMILY SERVICES ASSISTANT Work Phone: [facility] Comment on above: Multiple sclerosis ( HCC) (Primary Dx) Start: 08-30-2022 End: 08-30-2022 Subsequent hospital visit by physician Fareed Oreilly (I-Stat/3t) Work Phone: Radiology Comment on above: Encounter for long-t erm (current) use of medications [Z79.899] Start: 08-10-2022 End: 08-10-2022 ambulatory Sp Lang DO Work Phone: Hematology/Oncology Comment on above: CML (chronic myelocy tic leukemia) (HCC) (Primary Dx) Start: 08-10-2022 End: 08-10-2022 Patient encounter procedure Sp Lang DO Work Phone: [facility] Start: 08-07-2022 ambulatory Sp Medina Work Phone: Hematology/Oncology Comment on above: PCR Start: 08-07-2022 E-mail encounter fro m caregiver Sp Lang DO Work Phone: [facility] Start: 06-15-2022 End: 06-15-2022 Patient encounter procedure Gianna Jensen DO Work Phone: [facility] Comment on above: Abnormal mammogram w ith microcalcification (Primary Dx); Papilloma of left breast Start: 05-08-2022 ambulatory Mary augustine SPACE SCIENCES DIRECTOR Work Phone: [facility] Comment on above: appt Start: 05-08-2022 E-mail encounter fro m caregiver Mary Gonzalez LPN Work Phone: [facility] Start: 05-04-2022 Telephone encounter Sp arana DO Work Phone: Hematology/Oncology Comment on above: Orders Start: 05-01-2022 End: 05-01-2022 ambulatory Sp Lang DO Work Phone: Hematology/Oncology Comment on above: CML (chronic myelocy tic leukemia) (HCC) (Primary Dx); Papilloma of left breast Start: 05-01-2022 End: 05-01-2022 Patient encounter procedure Sp Lang DO Work Phone: [facility] Start: 04-25-2022 End: 04-25-2022 Patient encounter procedure Carmella Griffiths MD Work Phone: General Surgery Comment on above: Intraductal papillom a (Primary Dx) Start: 04-18-2022 End: 04-18-[address] Miesha Guillen Work Phone: [facility] Work Phone: Start: 04-18-2022 End: 04-18-[address] Miesha Guillen Work Phone: [facility]-Breast Imaging - Biopsy/[place] Start: 04-12-2022 End: 04-12-2022 Patient encounter procedure Carmella Griffiths MD Work Phone: General Surgery Comment on above: Calcification of lef t breast on mammography (Primary Dx) Start: 04-05-2022 End: 04-05-2022 Subsequent hospital visit by physician Diagnostic Mammo [facility] Mammogram Start: 03-08-2022 End: 03-08-[address] Miesha Guillen Work Phone: [facility] Start: 03-03-2022 End: 03-03-2022 Subsequent hospital visit by physician Screen Mammo [facility] Mammogram Comment on above: Canceled (CC cx: Err or or Template Change) Start: 03-03-2022 End: 03-03-2022 Phone Encounter Miesha Guillen DO Work Phone: [facility] Start: 03-03-2022 End: 03-03-2022 Miesha Guillen DO Work Phone: [facility] Start: 03-01-2022 End: 03-01-2022 Patient encounter procedure Mary Landis APRN.FAMILY SERVICES ASSISTANT Work Phone: [facility] Comment on above: Multiple sclerosis ( HCC) (Primary Dx); Encounter for long-term (current) use of medications Start: 02-28-2022 End: 02-28-2022 Subsequent hospital visit by physician Mri Radio [facility] (I-Stat/1.5t) Work Phone: Radiology Comment on above: Multiple sclerosis ( HCC) [G35] Start: 02-06-2022 End: 02-06-[address] Miesha Guillen Work Phone: [facility]iology Start: 02-06-2022 Review Miesha iglesias DO Work Phone: [facility] Start: 02-06-2022 Miesha iglesias DO Work Phone: [facility] Start: 01-20-2022 Orders Only Sp Medina Work Phone: Hematology/Oncology Comment on above: Personal history of myeloid leukemia (Primary Dx) Start: 01-12-2022 End: 01-17-2022 Office outpatient visit 25 minutes Miesha Guillen DO Work Phone: [facility] Start: 12-30-2021 End: 12-30-2021 Lab Order Miesha Guillen DO Work Phone: [facility] Start: 12-30-2021 End: 12-30-2021 Miesha Guillen DO Work Phone: [facility] Start: 12-29-2021 End: 12-29-2021 Annotation/Addendum Miesha Guillen DO Work Phone: [facility] Start: 12-29-2021 End: 12-29-2021 Miesha Wilmer DO Work Phone: [facility] Start: 12-19-2021 Refill Mary Uri gr APRN.FAMILY SERVICES ASSISTANT Work Phone: [facility] Comment on above: Refill Request Start: 10-31-2021 End: 10-31-2021 ambulatory Sp Lang DO Work Phone: Hematology/Oncology Comment on above: CML (chronic myelocy tic leukemia) (HCC) (Primary Dx) Start: 10-31-2021 End: 10-31-2021 Patient encounter procedure Sp Lang DO Work Phone: [facility] Start: 10-21-2021 Orders Only Sp Lang D O Work Phone: Hematology/Oncology Comment on above: CML (chronic myelocy tic leukemia) (HCC) (Primary Dx) Start: 09-30-2021 End: 09-30-2021 Office outpatient visit 10 minutes Miesha Wilmer DO Work Phone: [facility] Start: 09-21-2021 End: 09-21-2021 Office outpatient visit 10 minutes Miesha Wilmer DO Work Phone: [facility] Start: 09-21-2021 Review Miesha Fearo n DO Work Phone: [facility] Start: 09-15-2021 End: 09-18-2021 Office outpatient visit 15 minutes Miesha Wilmer DO Work Phone: [facility] Start: 07-28-2021 End: 07-28-2021 Office outpatient visit 15 minutes Miesha Wilmer DO Work Phone: [facility] Start: 07-27-2021 End: 07-27-2021 Office outpatient visit 5 minutes Miesha Wilmer DO Work Phone: [facility] Start: 07-20-2021 End: 07-20-2021 Patient encounter procedure Miesha Wilmer DO Work Phone: [facility] Start: 07-20-2021 End: 07-20-2021 Miesha Millanon DO Work Phone: [facility] Start: 06-30-2021 End: 06-30-2021 Office outpatient visit 10 minutes Miesha Millanon DO Work Phone: [facility] Start: 04-18-2021 End: 04-18-2021 Lab Order Miesha Guillen DO Work Phone: [facility] Start: 04-18-2021 End: 04-18-2021 Miesha Millanon DO Work Phone: [facility] Start: 06-02-2020 End: 06-03-2020 Office outpatient visit 5 minutes Miesha Guillen [facility] Start: 02-18-2020 End: 02-18-2020 Office outpatient visit 25 minutes Miesha Guillen [facility] Start: 01-27-2020 End: 01-28-2020 Office outpatient visit 5 minutes Miesha Guillen [facility] Start: 01-22-2020 End: 01-22-2020 Phone Encounter Miesha Wilmer [facility] Start: 01-22-2020 End: 01-22-2020 Miesha Guillen DO Work Phone: [facility] Start: 01-15-2020 End: 01-15-2020 Office outpatient visit 10 minutes Miesha Guillen [facility] Start: 05-08-2019 End: 05-08-2019 Office outpatient visit 10 minutes Miesha Guillen [facility] Start: 03-12-2019 End: 03-12-2019 Office outpatient visit 25 minutes Miesha Wilmer [facility] Start: 02-20-2019 End: 02-20-2019 Phone Encounter Miesha Wilmer [facility] Start: 02-20-2019 End: 02-20-2019 Miesha Wilmer DO Work Phone: [facility] Start: 07-18-2018 Patient encounter procedure Miesha Guillen [facility] Start: 07-18-2018 End: 07-18-2018 Office outpatient visit 15 minutes Miesha Guillen [facility] Start: 02-14-2018 End: 02-14-2018 Patient encounter procedure Miesha Guillen [facility] Start: 02-14-2018 End: 02-14-2018 Miesha Wilmer DO Work Phone: [facility] Start: 10-24-2017 End: 10-24-2017 Office outpatient visit 25 minutes Miesha Wilmer [facility] Start: 08-30-2017 Ambulatory Mick Ahmadi [id number] Start: 02-28-2017 End: 02-28-2017 Office outpatient visit 25 minutes Miesha Wilmer [facility] Start: 02-14-2017 End: 02-14-2017 Phone Encounter Miesha Guillen [facility] Start: 02-14-2017 End: 02-14-2017 Miesha Millanon DO Work Phone: [facility] Start: 05-17-2016 End: 05-17-2016 Office outpatient visit 15 minutes Miesha Wilmer [facility] Start: 01-05-2016 End: 01-05-2016 Phone Encounter Miesha Wilmer [facility] Start: 01-05-2016 End: 01-05-2016 Miesha Wilmer DO Work Phone: [facility] Start: 12-03-2015 End: 12-09-2015 Office outpatient visit 25 minutes Miesha Wilmer [facility] Start: 11-04-2015 End: 11-04-2015 Phone Encounter Miesha Wilmer [facility] Start: 11-04-2015 End: 11-04-2015 Miesha Millanon DO Work Phone: [facility] Start: 11-01-2015 End: 11-02-2015 Office outpatient visit 25 minutes Miesha Wilmer [facility] Start: 10-04-2015 End: 10-04-2015 Phone Encounter Miesha Millanon [facility] Start: 10-04-2015 End: 10-04-2015 Miesha Wilmer DO Work Phone: [facility] Start: 08-18-2015 End: 08-19-2015 Office outpatient visit 15 minutes Miesha Wilmer [facility] Start: 09-21-2014 End: 09-21-2014 Office outpatient visit 25 minutes Miesha Wilmer [facility] Start: 09-18-2014 End: 09-20-2014 Office outpatient visit 15 minutes Miesha Guillen [facility] Start: 06-01-2014 End: 06-01-2014 Phone Encounter Miesha Guillen [facility] Start: 06-01-2014 End: 06-01-2014 Miesha Guillen DO Work Phone: [facility] Start: 05-27-2014 End: 05-27-2014 Office outpatient visit 5 minutes Miesha Guillen [facility] Start: 04-24-2014 End: 04-24-2014 Phone Encounter Miesha Guillen [facility] Start: 04-24-2014 End: 04-24-2014 Miesha Guillen DO Work Phone: [facility] Start: 04-22-2014 End: 04-23-2014 Office outpatient visit 15 minutes Miesha Guillen [facility] Start: 01-28-2014 End: 01-28-2014 Patient encounter procedure Miesha Guillen [facility] Start: 01-28-2014 End: 01-28-2014 Miesha Guillen DO Work Phone: [facility] Start: 06-19-2013 End: 06-19-2013 Patient encounter procedure Miesha Guillen [facility] Start: 06-19-2013 End: 06-19-2013 Miesha Guillen DO Work Phone: [facility] Start: 04-01-2013 End: 04-01-2013 Phone Encounter Miesha Guillen [facility] Start: 04-01-2013 End: 04-01-2013 Miesha Guillen DO Work Phone: [facility] Start: 03-21-2013 End: 03-23-2013 Patient encounter procedure Miesha Guillen [facility] Start: 03-21-2013 End: 03-23-2013 Miesha Guillen DO Work Phone: [facility] Start: 03-20-2013 End: 03-20-2013 Phone Encounter Miesha Guillen [facility] Start: 03-20-2013 End: 03-20-2013 Miesha Guillen DO Work Phone: [facility] Start: 03-19-2013 End: 03-19-2013 Phone Encounter Miesha Guillen [facility] Start: 03-19-2013 End: 03-19-2013 Miesha Guillen DO Work Phone: [facility] Start: 03-17-2013 End: 03-17-2013 Office outpatient visit 15 minutes Miesha Guillen [facility] Start: 03-12-2013 End: 03-12-2013 Nursing evaluation of patient and report Miesha Guillen [facility] Start: 03-12-2013 End: 03-12-2013 Miesha Guillen DO Work Phone: [facility] Start: 02-18-2013 End: 02-19-2013 Patient encounter procedure Miesha Millanon [facility] Start: 02-18-2013 End: 02-19-2013 Miesha uGillen DO Work Phone: [facility] Start: 01-27-2013 End: 01-27-2013 Patient encounter procedure Miesha Millanon [facility] Start: 01-27-2013 End: 01-27-2013 Miesha Guillen DO Work Phone: [facility] Start: 08-16-2012 End: 08-16-2012 Patient encounter procedure Julio Huang RN [facility] Start: 08-16-2012 End: 08-16-2012 Miesha Guillen DO Work Phone: [facility] Start: 07-16-2012 End: 07-16-2012 Office outpatient visit 25 minutes Miesha Guillen [facility] Start: 07-03-2012 End: 07-03-2012 Patient encounter procedure Miesha Wilmer [facility] Start: 07-03-2012 End: 07-03-2012 Miesha Guillen DO Work Phone: [facility] Start: 04-22-2012 End: 04-22-2012 Patient encounter procedure Miesha Millanon [facility] Start: 04-22-2012 End: 04-22-2012 Miesha Millanon DO Work Phone: [facility] Start: 03-20-2012 End: 03-22-2012 Medical examinations/reports status Miesha Guillen DO Work Phone: [facility] Start: 03-20-2012 End: 03-22-2012 Patient encounter procedure Miesha Wilmer [facility] Start: 03-20-2012 End: 03-22-2012 Miesha Wilmer DO Work Phone: [facility] Start: 09-29-2011 End: 09-29-2011 Patient encounter procedure Miesha Wilmer [facility] Start: 09-29-2011 End: 09-29-2011 Miesha Wilmer DO Work Phone: [facility] Start: 03-07-2011 End: 03-07-2011 Patient encounter procedure Miesha Wilmer [facility] Start: 03-07-2011 End: 03-07-2011 Miesha Wilmer DO Work Phone: [facility] Start: 02-28-2011 End: 02-28-2011 Office outpatient visit 25 minutes Miesha Guillen [facility] Start: 06-14-2010 End: 06-14-2010 Patient encounter procedure Miesha Wilmer [facility] Start: 06-14-2010 End: 06-14-2010 Miesha Wilmer DO Work Phone: [facility] Start: 03-18-2010 End: 03-20-2010 Patient encounter procedure Miesha Wilmer [facility] Start: 03-18-2010 End: 03-20-2010 Miesha Wilmer DO Work Phone: [facility] Start: 03-01-2010 End: 03-06-2010 Patient encounter procedure Miesha Wilmer [facility] Start: 03-01-2010 End: 03-06-2010 Miesha Wilmer DO Work Phone: [facility] Start: 01-11-2010 End: 01-11-2010 Patient encounter procedure Miesha Wilmer [facility] Start: 01-11-2010 End: 01-11-2010 Miesha Wilmer DO Work Phone: [facility] Start: 09-10-2009 End: 09-10-2009 Patient encounter procedure Miesha Wilmer [facility] Start: 09-10-2009 End: 09-10-2009 Miesha Guillen DO Work Phone: [facility] Start: 06-03-2009 End: 06-03-2009 Historical Summary Miesha Guillen [facility] Start: 06-03-2009 End: 06-03-2009 Miesha Guillen DO Work Phone: [facility] Start: 05-03-2009 End: 05-03-2009 Patient encounter procedure Miesha Guillen [facility] Start: 05-03-2009 End: 05-03-2009 Miesha Guillen DO Work Phone: [facility] Start: 03-29-2009 End: 03-30-2009 Patient encounter procedure Miesha Guillen [facility] Start: 03-29-2009 End: 03-30-2009 Miesha Guillen DO Work Phone: [facility] Start: 01-19-2009 End: 01-19-2009 Historical Summary Miesha Guillen [facility] Start: 01-19-2009 End: 01-19-2009 Miesha Guillen DO Work Phone: [facility] Start: 11-16-2008 End: 11-16-2008 Patient encounter procedure Miesha Guillen [facility] Start: 11-16-2008 End: 11-16-2008 Miesha Guillen DO Work Phone: [facility] Start: 10-12-2008 End: 10-12-2008 Office outpatient visit 15 minutes Miesha Guillen [facility] Start: 07-03-2007 End: 07-03-2007 Office outpatient visit 25 minutes Miesha Gulilen [facility] Start: 03-11-2007 End: 03-11-2007 Office outpatient visit 15 minutes Miesha Guillen [facility] Start: 07-31-2006 End: 07-31-2006 Office outpatient visit 15 minutes Miesha Guillen [facility] Start: 05-22-2006 End: 05-24-2006 Office outpatient new 60 minutes Miesha Guillen [facility] Procedures Date Procedure Procedure Detail Performing Clinician Start: 08-30-2023 Mri brain brain stem w/o w/contrast material Mary Landis APRN.FAMILY SERVICES ASSISTANT Work Phone: Start: 08-30-2023 BRAIN & CERVICAL SPINE MRI DISCRETE DATA [facility] Provider Start: 07-26-2023 CT CARDIAC SCORING WO IV CONTRAST MIESHA GUILLEN Start: 07-26-2023 Ct heart no contrast quant eval coronry calcium Miesha K Wilmer DO Work Phone: Start: 04-16-2023 Bx breast w/device 1st lesion stereotactic guid Alison Arnett MD Work Phone: Start: 04-16-2023 Level iv surg pathology gross&microscopic exam Alison Arnett MD Work Phone: Start: 03-30-2023 Us breast uni real time with image limited Gianna Jensen DO Work Phone: Start: 03-30-2023 Arthrocentesis aspir&/inj major jt/bursa w/o us Mikayla Keller PA-C Work Phone: Start: 03-30-2023 End: 03-30-2023 Mammography Gianna Narayan Mikey DO Work Phone: Start: 02-26-2023 US scan of thyroid Start: 02-26-2023 End: 02-27-2023 Procedure Note: See Note; NOTES: [facility] Imaging Services [address] [place] [id number] Thyroid MR#: [id number] Acct: [id number] Name: BRYANNA RAMIREZ Rep #: [id number] : [id number] F [id number] From: Gene burden MD PCP: Dr. Miesha Guillen, DO Status: REG CLI Study: Thyroid Date of Exam: 02/26/23 Exam# [id number] Ordering Dr: Miesha Guillen DO STUDY: THYROID ULTRASOUND REASON FOR EXAM: Female, 57 years old. Thyromegaly . Prior resection of the right lobe of the thyroid. TECHNIQUE: Ultrasound evaluation of the thyroid was performed with real-time and static dutta-scale imaging. COMPARISON: Comparison is made with prior study dated March 04, 2010. FINDINGS: RIGHT LOBE: The patient is status post resection of the right lobe of the thyroid. I suspect residual 9 mm x 8 mm x 6 mm thyroid remanent. LEFT LOBE: The left lobe of the thyroid gland is slightly enlarged measures 5 cm x 1.7 cm x 1.3 cm. There is a homogeneous echotexture. There is a 2 mm x 2 mm x 2 mm hypoechoic solid nodule in the upper pole. There is also evidence of a 2 mm x 2 mm x 2 mm cystic colloid in the mid pole. ISTHMUS: The isthmus measures 7 mm. The regional lymph nodes are normal. US/Thyroid IMPRESSION: Status post subtotal right thyroidectomy. There are 2, 2 mm nodules in the left lobe. Electronically Signed: Gene Mario MD at 14:51 EDT Reading Location ID and State: [address] [place] [address] , Service support , CC: Dr. Miesha Guillen DO Special Services Director: Signed Miesha Guillen DO Work Phone: Start: 02-13-2023 Dual energy X-ray absorptiometry Start: 02-13-2023 End: 02-21-2023 Procedure Note: See Note; NOTES: [facility] Imaging Services [address] [place] [id number] Dexa Bone Density Study MR#: [id number] Acct: [id number] Name: BRYANNA RAMIREZ Rep #: [id number] : [id number] F [id number] From: Gene burden MD PCP: Dr. Miesha Guillen DO Status: [facility] CLI Study: Dexa Bone Density Study Date of Exam: 02/13/23 Exam# [id number] Ordering Dr: Miesha Guillen DO STUDY: DUAL ENERGY X-RAY ABSORPTIOMETRY / DXA REASON FOR EXAM: Female, 57 years old. [id number] TECHNIQUE: Bone Mineral Density (BMD) measurements of lumbar spine and bilateral hips were obtained. COMPARISON: Comparison is made with prior study February 24, 2020. FINDINGS: Lumbar Spine (L1-L4): g/cm2 (0.854) / T-score (-1.8) / Z-score (-0.7) Findings are suggestive of osteopenia with a moderate fracture risk. Left Femur Total: g/cm2 (0.834) / T-score (-0.9) / Z-score (-0.2) Left Femoral Neck: g/cm2 (0.804) / T-score (-0.4) / Z-score (0.7) Right Femur Total: g/cm2 (0.822) / T-score (-1.0) / Z-score (-0.3) Right Femoral Neck: g/cm2 (0.765) / T-score (-0.8) / Z-score (0.3) The T-Scores on the most recent prior examination were: Lumbar Spine (L1-L4): There has been worsening of bone density since the previous examination. Left Femur Total: which represents a worsening of 6.9%. Right Femur Total: which represents a worsening of 8.1%. BD/Dexa Bone Density Study IMPRESSION: The patient is considered osteopenic as outlined below according to World Sammy Organization (WHO) criteria with a moderate fracture risk. There has been worsening of bone density since the previous examination. Reference Information: The T-score is the number of standard deviations above or below the standard which is normal for young adults at their peak bone mineral density. The World Health Organization (WHO) interprets the T-scores as follows: Above -1 Normal bone density Between -1 and -2.5 Osteopenia Equal to / or below -2.5 Osteoporosis As a practical clinical guideline, osteopenia may be graded as follows: Mild -1 through -1.5 Moderate -1.6 through -2.0 Severe -2.1 through -2.4 The Z-score is the number of standard deviations above or below age-matched controls. A Z-score of less than -1.5 would be considered abnormal. References: 1. NIH Osteoporosis and Related Bone Diseases www osteo.org 2. International Society for Clinical Densitometry www iscd.org 3. National Osteoporosis Foundation www nof.org Electronically Signed: Gene Mario MD at 9:07 EDT , CC: Dr. Miesha Guillen DO Special Services Director: Signed Miesha Guillen DO Work Phone: Start: 12-07-2022 Arthrocentesis aspir&/inj major jt/bursa w/o us Mikayla Keller PA-C Work Phone: Start: 11-30-2022 Radex shoulder complete minimum 2 views Mikayla Keller PA-C Work Phone: Start: 08-30-2022 BRAIN & CERVICAL SPINE MRI DISCRETE DATA [facility] Provider Start: 08-30-2022 Mri brain brain stem w/o w/contrast material Mary Landis APRN.CNP Work Phone: Start: 05-10-2022 End: 05-10-2022 Procedure Note: See Note; NOTES: [facility] Radiology [address] [place] [address] Ankle min 3 Views MR#: [id number] Acct: [id number] Name: BRYANNA RAMIREZ Rep #: [id number] : 1965 F 56 From: Matthew Malagon MD PCP: Dr. Miesha Guillen DO Status: DEP AMB Study: Ankle min 3 Views Date of Exam: 05/10/22 Exam# [id number] Ordering Dr: Mayuri Doshi DPM STUDY: X-RAY - RIGHT ANKLE REASON FOR EXAM: Female, 56 years old. Pain. TECHNIQUE: 3 view(s) of the ankle. COMPARISON: March 08, 2022. FINDINGS: Comminuted distal fibular fracture with minimal displacement, unchanged. Mild arthrosis of the tibiotalar joint unchanged. Stable arthrosis of the subtalar joint. Large inferior calcaneal spur unchanged. The soft tissue structures are unremarkable. RAD/Ankle min 3 Views IMPRESSION: Stable comminuted minimally displaced fracture of the distal fibula. No complications. Electronically Signed: Matthew Malagon, at 9:43 EDT , CC: MACY Doshi; Dr. Miesha Guillen DO Special Services Director: Signed Miesha Guillen DO Work Phone: Start: 04-18-2022 End: 04-18-2022 Procedure Note: See Note; NOTES: [facility] Medical Records Department [address] [place] [address] Operative Report 04/18/22 1123 MR#: [id number] Acct: [id number] Name: BRYANNA RAMIREZ Rep #: [id number] : 1965 56 From: Carmella Griffiths MD PCP: Dr. Miesha Guillen, Status:REG CLI Location: [facility] Report of Operation Date of Procedure: 04/18/22 Pre-Operative Diagnosis: abnormal left breast calcifications seen on mammograms Post-Operative Diagnosis: same Surgery/Procedure Performed:: left stereotactic breast biopsy Description of Surgical Findings:: on CC view, there are three clusters of calcifications circled, on LM view - there is just one cluster circled, therefore approach was LM. Upon biopsy, it is found that these are primarily vascular calcifications Surgeon: Camrella Griffiths Type of Anesthesia: Local Specimen's removed: left breast tissue Estimated Blood Loss (mL): < 2 ml Description of Procedure: After informed consent was given, the patient was brought into the Breast Biopsy suite. Appropriate time out protocol was followed. The patient was placed in the prone position on the stereotactic biopsy table. The patient???s left breast was then placed in the opening at the head of the biopsy table. A dubbing machine operator compression mammogram was then obtained in the lateral view. The suspicious radiological lesion was thus identified. With review of the mammograms, on CC view, there are three clusters of calcifications circled; on LM view - there is just one cluster circled, therefore approach was LM. Upon biopsy, it is found that these are primarily vascular calcifications. Stereo pictures of the lesion were then taken for XYZ coordinates. The Mammotome biopsy stylus was then positioned where it would be entering into the patient???s breast. The skin at this site was then cleansed with a surgical skin preparation. The skin and subcutaneous tissues at this site were then infiltrated with 1% xylocaine. A small skin incision was made with an 11 blade scalpel. The biopsy stylus was then positioned into the patient???s breast at the proper coordinates of depth. Using the Mammotome vacuum-assist device, several core samples of breast tissue were obtained. Once again, there was active bleeding noted, since a vascular biopsy essentially was done. A specimen mammogram was the obtained. It revealed that the abnormal calcifications were within the specimen. I reviewed this personally and concluded that the tissue sampling was adequate. A hemostatic marker clip was then placed into the biopsy cavity and a dubbing machine operator film revealed that it was properly deployed. The patient was then placed in the supine position and pressure was applied to the breast until no active bleeding was noted. Nylonc suture was placed to reapproximate the skin. Sterile dressing was applied. A unilateral mammogram in the CC and MLO view were then taken which revealed that the marker clip was in the same area as the previous suspicious lesion. The patient tolerated the procedure well and was discharged from the Breast Biopsy suite in good condition. Complications none noted 04/18/22 1662 <Electronically signed by Carmella Griffiths MD> Cosigner Signature (if applicable): CC: Dr. Miesha Guillen DO; Dr. Carmella Griffiths MD Signed Miesha Guillen DO Work Phone: Start: 04-18-[address] Miesha Guillen Work Phone: Start: 04-05-2022 Diagnostic mammography computer-aided detj [facility] Provider Start: 03-08-[address] Miesha Guillen Work Phone: Start: 03-08-2022 End: 03-08-2022 Procedure Note: See Note; NOTES: [facility] Radiology [address] [place] [address] Ankle min 3 Views MR#: [id number] Acct: [id number] Name: BRYANNA RAMIREZ Rep #: [id number] : 1965 F 56 From: Cedrick Cosme DO PCP: Dr. Miesha Guillen DO Status: DEP AMB Study: Ankle min 3 Views Date of Exam: 03/08/22 Exam# [id number] Ordering Dr: Mayuri Doshi DPM INDICATION: INJURY -- STANDING EXAMINATION/TECHNIQUE: X-RAY - RIGHT XR Ankle Min 3 Views 3 VIEWS COMPARISON: Right foot x-rays 02/06/2022 FINDINGS: SOFT TISSUES: No soft tissue swelling or gas. No joint effusion. No abnormal soft tissue calcifications. BONES/JOINTS: Oblique fracture distal radius at the level of the tibial plafond is likely chronic. Smooth fracture margins. Minimal bridging ossification. Preservation of the joint space and no degenerative bony proliferative changes. No sclerotic or destructive changes observed. Large inferior calcaneal spur. Weightbearing lateral view shows additional x-ray projecting over the calcaneus, likely representing the contralateral foot. RAD/Ankle min 3 Views IMPRESSION: Suspected subacute fracture distal fibula as above. Large, inferior calcaneal spur. Electronically Signed: Cedrick Cosme DO at 21:01 EDT , CC: MACY Doshi; Dr. Miesha Guillen DO Special Services Director: Signed Miesha Guillen DO Work Phone: Start: 02-28-2022 Mri brain brain stem w/o w/contrast material Mary Grewal Sabiha MCGILLFAMILY SERVICES ASSISTANT Work Phone: Start: 02-28-2022 BRAIN & CERVICAL SPINE MRI DISCRETE DATA [facility] Provider Start: 02-28-2022 Adult depression screening assessment Mri (I-Stat/1.5t) Work Phone: Start: 02-06-2022 End: 02-06-2022 Ankle 2 Views Comments: See Note; NOTES: [facility] Radiology [address] [place] [address] Ankle 2 Views MR#: [id number] Acct: [id number] Name: BRYANNA RAMIREZ Rep #: [id number] : 1965 F 56 From: Gene burden MD PCP: Dr. Miesha Guillen DO Status: DEP AMB Study: Ankle 2 Views Date of Exam: 02/06/22 Exam# [id number] Ordering Dr: Miesha Guillen DO STUDY: X-RAY - RIGHT ANKLE REASON FOR EXAM: Female, 56 years old. PAIN TECHNIQUE: 2 view(s) of the ankle. COMPARISON: None. FINDINGS: Normal visualized distal tibia and fibula. Nondisplaced oblique fracture of the lateral malleolus. Normal tibiotalar articulation and ankle mortise. Plantar spur. The visualized subtalar, talonavicular, calcaneocuboid and tarsal articulations are normal. Lateral soft tissue swelling. RAD/Ankle 2 Views IMPRESSION: Nondisplaced oblique fracture of the lateral malleolus with overlying soft tissue swelling. Plantar spur. Electronically Signed: Gene Mario MD at 11:08 EDT , CC: Dr. Miesha Guillen DO Special Services Director: Signed Miesha Guillen DO Work Phone: Start: 02-06-2022 End: 02-06-2022 Foot 2 Views Comments: See Note; NOTES: [facility]iology [address] [place] [address] Foot 2 Views MR#: [id number] Acct: [id number] Name: BRYANNA RAMIREZ Rep #: [id number] : 1965 F 56 From: Gene burden MD PCP: Dr. Miesha Guillen DO Status: DEP AMB Study: Foot 2 Views Date of Exam: 02/06/22 Exam# [id number] Ordering Dr: Miesha Guillen DO STUDY: X-RAY - RIGHT FOOT CLINICAL: Female, 56 years old. PAIN -- ATT BASE 5TH TECHNIQUE: 2 view(s) of the foot. COMPARISON: None. FINDINGS: There is a plantar calcaneal spur. Nondisplaced fracture of the lateral malleolus. Normal visualized subtalar, talonavicular, calcaneocuboid, tarsal and tarsometatarsal articulations. Normal metatarsi. Normal metatarsophalangeal joint of the great toe. Normal tibial and fibular sesamoid bones. Normal interphalangeal joint of the great toe. Normal phalanges of the great toe. Normal second through fifth metatarsophalangeal joints. Normal interphalangeal joints and phalanges of the lesser toes. Soft tissue swelling. RAD/Foot 2 Views IMPRESSION: Nondisplaced fracture of the lateral malleolus with overlying soft tissue swelling. Electronically Signed: Gene Mario MD at 11:09 EDT , CC: Dr. Miesha Guillen DO Special Services Director: Signed Miesha Guillen DO Work Phone: Start: 02-06-2022 Plain X-ray of tibia and fibula Dr. Miesha Guillen Work Phone: Start: 02-06-[address] Miesha Guillen Work Phone: Start: 02-06-[address] Miesha Guillen Work Phone: Start: 02-06-2022 End: 02-06-2022 Tibia Fibula 2 Views Comments: See Note; NOTES: [facility]iology [address] [place] [address] Tibia Fibula 2 Views MR#: [id number] Acct: [id number] Name: BRYNANA RAMIREZ Rep #: [id number] : 1965 F 56 From: hCung Mackay MD PCP: Dr. Miesha Guillen, Status: DEP AMB Study: Tibia Fibula 2 Views Date of Exam: 02/06/22 Exam# [id number] Ordering Dr: Miesha Guillen DO EXAM: XR RIGHT TIBIA AND FIBULA, 2 VIEWS CLINICAL INDICATION: PAIN TECHNIQUE: Frontal and lateral views of the right tibia and fibula. This report was created using [employer] report generation technology. COMPARISON: None. FINDINGS: BONES/JOINTS: There is a nondisplaced fracture through the distal fibula. There is minimal soft tissue swelling present. Preservation of the joint space. No sclerotic or destructive changes observed. SOFT TISSUES: See above. RAD/Tibia Fibula 2 Views IMPRESSION: Nondisplaced fracture of the distal fibula with soft tissue swelling. Electronically Signed: Chung Mackay MD at 10:51 EDT , CC: Dr. Miesha Guillen DO Special Services Director: Signed Miesha Guillen DO Work Phone: Start: 01-26-2022 Mammography Mri (I-Stat/1.5t) Work Phone: Start: 09-22-2021 Adult depression screening assessment Sp Lang DO Work Phone: Start: 07-25-2021 End: 07-25-2021 Chest PA and Lateral Comments: See Note; NOTES: [facility] [address] [place] [address] Chest PA and Lateral MR#: [id number] Acct: [id number] Name: BRYANNA RAMIREZ Rep #: [id number] : 1965 F 55 From: Lyndon Nation PCP: Dr. Miesha Guillen DO Status: DEP AMB Study: Chest PA and Lateral Date of Exam: 07/25/21 Exam# [id number] Ordering Dr: Miesha Guillen DO STUDY: X-RAY CHEST REASON FOR EXAM: Female, 55 years old. Technologist Notes COUGH HX OF COVID 1 MONTH AGO. HX OF ASTHMA Post Covid TECHNIQUE: XR Chest 2 Views COMPARISON: 04.16.18 FINDINGS: There is no demonstrated pleural abnormality. Normal size heart. Normal mediastinum and erik. Normal visualized pulmonary arteries. Normal visualized aortic arch and descending thoracic aorta. Normal visualized thoracic spine. Normal visualized ribs, clavicles, and shoulders. There is no demonstrated abnormality of the visualized soft tissue structures of the upper abdomen. RAD/Chest PA and Lateral IMPRESSION: There are no acute findings. Electronically Signed: Lyndon Wade MD at 16:53 EST , Service support , CC: Dr. Miesha Guillen DO Special Services Director: Signed Miesha Guillen DO Work Phone: Start: 07-01-2021 End: 07-01-2021 Virtual Office Visit Comments: See Note; NOTES: [facility] Services [address] [place] [address] OFFICE VISIT Date of Service: 07/01/21 MR#: [id number] Acct: [id number] Patient: BRYANNA RAMIREZ Rep #: [id number] : 1965 Provider: FARAZ Barron Age/Sex: 55/F Location: [facility] Status: Signed Intake Vital Signs 07/01/21 15:56 07/01/21 16:08 Height 5 ft 8 in 5 ft 8 in Weight: 188 lb BMI 28.5 Intake Visit Reasons: COVID-19 Allergies propoxyphene napsylate [From Darvocet-N] Allergy (Verified 04/16/18 19:30) Vomiting Sulfa (Sulfonamide Antibiotics) Allergy (Verified 04/16/18 19:30) Rash egg Adverse Reaction (Verified 04/16/18 19:30) Nausea erythromycin base [Erythromycin Base] Adverse Reaction (Verified 04/16/18 19:30) Other Quinolones Adverse Reaction (Verified 04/16/18 19:30) Other PFSH Social History Smoking Status: Never smoker HPI HPI Details: Patient was informed that this visit will be billed to patient. This visit was conducted during COVID- pandemic. BRYANNA RAMIREZ, is a 55 F who participates in a telephone office visit for review of her COVID-19 symptoms. Statement read to the patient: This telehealth visit is being offered during our stay at home measures in response to the pandemic. It is subject to an office visit charge. The patient consents to continue. Symptom onset occurred: 06/23/21 Positive COVID-19 test occurred: 06/26/21 Unvaccinated The FDA has authorized the emergency use of monoclonal antibody treatment (bamlanivimab/etesevimab or casirivimab/imdevimab) for mild to moderate COVID-19 in adults and pediatric patients with positive results of direct SARS???Cov???2 viral testing ages 12 and older, at least 40 kg, who were not at high risk for progressing to severe COVID-19 and or hospitalization. The significant known and potential risks (allergic reactions or side effects from injection including brief pain, bleeding, bruising of the skin, soreness, swelling, possible infection at the infusion site) and benefits (decrease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 1.5 cm x 0.9 cm. I.U.D. - The patient does not have an I.U.D. The right ovary is visualized. The right ovary measures 4.2 cm x 2.6 cm x 2.3 cm. There is a dominant follicle measuring 1.6 cm x 1.4 cm 1.2 There is no visualized right adnexal mass or complex lesion. There is normal arterial and normal venous vascularity. The left ovary is visualized. The left ovary measures 4.3 cm x 2.8 cm x 1.8 cm. Dominant follicles are seen. The larger measures 1.8 cm x 2.0 cm x 1.5 cm. There is no visualized left adnexal mass or complex lesion. There is normal arterial and normal venous vascularity. There is no fluid in the cul-de-sac. The pre void volume of the bladder was 341 ml. IMPRESSION: 3 small fibroids are seen within the uterus. Dominant follicles are seen in both ovaries. Electronically Signed: Gene Mario MD at 14:28 EDT Tel [phone], Service support [phone], CC: Ronna Gross DO Special Services Director: Signed Ronna Gross Work Phone: Start: 11-01-2015 End: 11-02-2015 Pelvic (Non ) Comments: See Note; NOTES: [facility] Imaging Services [address] [place] [address] Verdana 4d Pelvic (Non ) MR#: [id number] Acct: [id number] Name: BRYANNA RAMIREZ Rep #: [id number] : 1965 F 49 From: Gene Mario MD PCP: Ronna Gross DO Status: REG CLI Study: Pelvic (Non ) Date of Exam: 11/01/15 Exam# [id number] Ordering Dr: Ronna Gross DO STUDY: ULTRASOUND OF THE FEMALE PELVIS - COMPLETE REASON FOR EXAM: Female, 49 years old. History of adnexal cyst. LMP: November 01, 2015. TECHNIQUE: Transabdominal and Transvaginal TECHNICAL QUALITY: Adequate. COMPARISON: None. FINDINGS: The uterus is anteverted and is tilted to the left side of the pelvis. The uterus measures 9.2 cm x 5.7 cm 3.4 cm. There is a Nabothian cyst of the cervix. The endometrium measures 4.0 mm in thickness, and is hyperechoic. There is no demonstrated endometrial mass. 3 small fibroids are seen. The largest measures 1.2 cm x 1.5 cm x 0.9 cm. I.U.D. - The patient does not have an I.U.D. The right ovary is visualized. The right ovary measures 4.2 cm x 2.6 cm x 2.3 cm. There is a dominant follicle measuring 1.6 cm x 1.4 cm 1.2 There is no visualized right adnexal mass or complex lesion. There is normal arterial and normal venous vascularity. The left ovary is visualized. The left ovary measures 4.3 cm x 2.8 cm x 1.8 cm. Dominant follicles are seen. The larger measures 1.8 cm x 2.0 cm x 1.5 cm. There is no visualized left adnexal mass or complex lesion. There is normal arterial and normal venous vascularity. There is no fluid in the cul-de-sac. The pre void volume of the bladder was 341 ml. IMPRESSION: 3 small fibroids are seen within the uterus. Dominant follicles are seen in both ovaries. Electronically Signed: Gene Mario MD at 14:28 EDT Tel [phone], Service support [phone], CC: Ronna Gross DO Special Services Director: Signed Ronna Gross Work Phone: Start: 10-13-2015 End: 10-13-2015 Bilat Scrn Digital AND CAD Comments: See Note; NOTES: [facility] Imaging Services [address] [place] [address] Verdana 4d Bilat Scrn Digital AND CAD MR#: [id number] Acct: [id number] Name: BRYANNA RAMIREZ Rep #: [id number] : 1965 F 49 From: Gene Mario MD PCP: Ronna Gross DO Status: REG CLI Study: Miguelat Scrn Digital AND CAD Date of Exam: 10/13/15 Exam# [id number] Ordering Dr: Ronna Gross DO MAMMOGRAPHY - BILATERAL SCREENING REASON FOR EXAM: Female, 49 years old. Routine annual screening examination. PERTINENT HISTORY: Grandmother with breast cancer. TECHNIQUE: Digital examination. Mediolateral oblique (MLO) and craniocaudad (CC) views of both breasts were obtained. CAD: CAD was performed on this study. COMPARISON: Comparison is made with prior outside study dated June 26, 2014. FINDINGS: Breast Composition: The breasts are heterogeneously dense, which may obscure small masses. There are no dominant masses or suspicious calcifications. No other significant abnormalities are identified. There has been no significant change since the prior study. IMPRESSION: Stable bilateral screening mammogram. Yearly follow-up mammogram recommended. (A) ASSESSMENT CATEGORY: BIRADS Category 1: Negative. A letter regarding these results will be sent to the patient by the facility within 30 days. Approximately 10% of breast cancers are not detected by mammography. A normal mammogram should not delay biopsy of a clinically suspicious abnormality. [id number] Electronically Signed: Gene Mario MD at 10:43 EDT Tel [phone], Service support [phone], CC: Ronna Gross DO Special Services Director: Signed oRnna Gross Work Phone: Start: 06-26-2014 Mammography Sp Lang DO Work Phone: Start: 11-24-2013 End: 11-24-2013 Brain W/WO Contrast Comments: See Note; NOTES: [facility] Imaging Services [address] [place] [address] MRI Report MR#: [id number] Acct: [id number] Name: BRYANNA RAMIREZ Rep #: [id number] : 1965 F 47 From: Nati Lugo MD PCP: Ronna Gross DO Status: REG CLI Study: Brain W/WO Contrast Date of Exam: 11/24/13 Exam# [id number] Ordering Dr: Janell Martinez MD STUDY: MRI BRAIN WITH AND WITHOUT CONTRAST REASON FOR EXAM: Female, 47 years old decrease vision right eye headaches. TECHNIQUE: Standardized multiplanar fat and water weighted pulse sequences were obtained. 8 ml of Gadavist contrast material was administered intravenously for the contrast portion of the examination. COMPARISON: None. FINDINGS: Normal size of the ventricles and extra-axial spaces for the patient's age. Normal white matter tracts of the supratentorial brain. There is subtle thickening of the optic chiasm and distal optic nerve. Postcontrast images demonstrate minimal subtle enhancement and increased T2 signal abnormality of the distal prechiasmatic right optic nerve. There is normal size of the globes and extraocular muscles. There is no extra-axial fluid accumulation. Normal flow voids within the major intracranial circulation suggesting patency by spin echo criteria. Normal midbrain, clem and medulla. Normal cerebellum. Normal basal cisterns. Normal bilateral temporal bones. Normal bilateral internal auditory canals. No demonstrated orbital abnormality, within the constraints of a routine brain study. Normal visualized paranasal sinuses. Normal calvarium and skull base. Normal visualized soft tissue structures. Normal visualized upper cervical spine. IMPRESSION: Subtle thickening of the distal optic nerves with abnormal enhancement and slight bright signal of the right optic nerve. Above findings are nonspecific may represent optic neuropathy and underlying optical glioma cannot be excluded. Continued followup exam is suggested if symptoms persist. Electronically Signed: Nati Lugo MD at 23:31 EDT Tel , Service support [phone], CC: Ronna Gross DO; Janell Martinez Special Services Director: Signed Miesha Guillen Start: 04-11-2010 Lipid 1996 panel - Serum or Plasma Sharmila Camarillo RN Work Phone: H/O: surgery Tonsillectomy Makayla Haleyrb L PN H/O: surgery Tonsillectomy Melissa Fields SPACE SCIENCES DIRECTOR H/O: surgery Tonsillectomy Kaitlin Gravius SPECIAL EDUCATION RESOURCE TEACHER H/O: surgery Tonsillectomy Kaitlin Gravius SPECIAL EDUCATION RESOURCE TEACHER H/O: surgery [facility] H/O: surgery [facility] Plan of Treatment Date Care Activity Detail Author Start: 04-16-2028 DTaP/Tdap/Td Vaccines (2 - Td or Tdap) DTaP/Tdap/Td Vaccines (2 - Td or Tdap) [facility] Start: 04-16-2028 Urine microalbumin profile DTaP,Tdap,Td Vaccine (2 - Td or Tdap) [facility] Start: 10-10-2026 Colonoscopy COLONOSCOPY [facility] Start: 10-10-2026 COLORECTAL CANCER SCREENING COLORECTAL CANCER SCREENING [facility] Start: 10-10-2026 Screening for malignant neoplasm of colon [facility] Start: 05-17-2026 Diabetes Screening Diabetes Screening [facility] Start: 07-10-2025 End: 07-10-2025 ambulatory 07/10/2025 4:10 PM EST Visit (SP) Office Hematology/Oncology [address] [place] [address] Sp Lang DO [address] [place] [address] OV/LABS 01/15 & 07/02* Hematology/Oncology Comment on above: OV/LABS 01/15 & 07/02* Start: 07-02-2025 End: 07-02-2025 ambulatory 07/02/2025 4:00 PM EST Results Only [facility] [address] [place] [address] CBC/PCR BCR/ABL* [facility] Comment on above: CBC/PCR BCR/ABL* Start: 04-25-2025 DIABETES SCREEN DIABETES SCREEN [facility] Start: 04-25-2025 Diabetes Screening Diabetes Screening [facility] Start: 03-30-2025 Influenza vaccination Influenza Vaccine (Season Ended) [facility] Start: 01-26-2025 DIABETES SCREEN DIABETES SCREEN [facility] Start: 01-15-2025 End: 01-15-2025 ambulatory 01/15/2025 8:00 AM EDT Results Only [facility] [place] [facility] [address] [place] [address] CBC/PCR BCR/ABL* [facility] Comment on above: CBC/PCR BCR/ABL* Start: 10-24-2024 DIABETES SCREEN DIABETES SCREEN [facility] Start: 08-30-2024 End: 09-28-2024 Mri brain brain stem w/o w/contrast material MRI BRAIN WO/W IVCON Radiology Routine Demyelinating disease of central nervous system (HCC) Expected: 08/30/2024 (Approximate), Expires: 09/28/2024 [facility] Work Phone: Comment on above: Expected: 08/30/2024 (Approximate), Expi res: 09/28/2024 Start: 08-01-2024 DIABETES SCREEN DIABETES SCREEN [facility] Start: 07-14-2024 End: 07-14-2024 ambulatory 07/14/2024 3:30 PM EST Visit (SP) Office Hematology/Oncology [address] [place] [address] Sp Lang DO [address] [place] [address] 6 MO OV/LABS 06/30* Hematology/Oncology Comment on above: 6 MO OV/LABS 06/30* Start: 07-07-2024 End: 07-07-2024 ambulatory 07/07/2024 4:10 PM EST Visit (SP) Office Hematology/Oncology [address] [place] [address] Sp Lang DO [address] [place] [address] 6 MO OV/LABS 06/30* Hematology/Oncology Comment on above: 6 MO OV/LABS 06/30* Start: 06-30-2024 End: 06-30-2024 ambulatory 06/30/2024 4:00 PM EST Results Only Maria Elena Bobwn [facility] [address] [place] [address] CBC/PCR BCR/ABL* [facility] Comment on above: CBC/PCR BCR/ABL* Start: 04-09-2024 End: 04-09-2024 ambulatory 04/09/2024 4:00 PM EDT Results Only Maria Elena Graves [facility] [address] [place] [address] CBC* [facility] [place] [facility] Comment on above: CBC* Start: 03-30-2024 Influenza vaccination [facility] Start: 03-30-2024 Mammography [facility] Start: 03-30-2024 Screening for malignant neoplasm of breast [facility] Start: 11-19-2023 End: 02-18-2024 BCR/ABL1 P210 QUANTITATIVE PCR BLOOD BCR/ABL1 P210 QUANTITATIVE PCR BLOOD Lab Routine Personal history of lymphoid leukemia CML (chronic myelocytic leukemia) (HCC) Expected: 11/19/2023, Expires: 02/18/2024 [facility] Work Phone: Comment on above: Expected: 11/19/2023, Expires: Start: 11-19-2023 End: 02-18-2024 CBC W Auto Differential panel - Blood COMPLETE BLOOD COUNT AND DIFFERENTIAL Lab STAT Personal history of lymphoid leukemia CML (chronic myelocytic leukemia) (HCC) Expected: 11/19/2023, Expires: 02/18/2024 [facility] Work Phone: Comment on above: Expected: 11/19/2023, Expires: Start: 07-30-2023 Behavioral Health Screening Behavioral Health Screening [facility] Start: 07-30-2023 Depression Assessment Depression Assessment [facility] Start: 05-17-2023 End: 08-16-2023 BCR/ABL1 P210 QUANTITATIVE PCR BLOOD BCR/ABL1 P210 QUANTITATIVE PCR BLOOD Lab Routine CML (chronic myelocytic leukemia) ([facility]) Expected: 05/17/2023, Expires: 08/16/2023 [facility] Work Phone: Comment on above: Expected: 05/17/2023, Expires: 4 Start: 05-17-2023 End: 08-16-2023 CBC W Auto Differential panel - Blood CBC + DIFF Lab STAT CML (chronic myelocytic leukemia) ([facility]) Expected: 05/17/2023, Expires: 08/16/2023 [facility] Work Phone: Comment on above: Expected: 05/17/2023, Expires: 4 Start: 05-17-2023 End: 08-16-2023 Comprehensive metabolic 2000 panel - Serum or Plasma COMP METABOLIC PANEL Lab Routine CML (chronic myelocytic leukemia) ([facility]) Expected: 05/17/2023, Expires: 08/16/2023 [facility] Work Phone: Comment on above: Expected: 05/17/2023, Expires: 4 Start: 03-30-2023 Influenza vaccination [facility] Start: 02-28-2023 Adult depression screening assessment DEPRESSION SCREENING [facility] Start: 02-19-2023 Lipoprotein blood naa numbers & subclasses [facility]; [facility] Work Phone: Start: 02-19-2023 Procedure Education [facility]; [facility] Work Phone: Start: 02-19-2023 Provider Instructions for Treatment [facility]; [facility] Work Phone: Start: 02-15-2023 End: 04-17-2023 BCR/ABL1 P210 QUANTITATIVE PCR BLOOD BCR/ABL1 P210 QUANTITATIVE PCR BLOOD Lab Routine Personal history of lymphoid leukemia CML (chronic myelocytic leukemia) ([facility]) Expected: 02/15/2023, Expires: 04/17/2023 [facility] Work Phone: Comment on above: Expected: 02/15/2023, Expires: 3 Start: 02-15-2023 End: 04-17-2023 CBC W Auto Differential panel - Blood CBC + DIFF Lab STAT Personal history of lymphoid leukemia CML (chronic myelocytic leukemia) (HCC) Expected: 02/15/2023, Expires: 04/17/2023 [facility] Work Phone: Comment on above: Expected: 02/15/2023, Expires: 3 Start: 02-13-2023 Dual energy X-ray absorptiometry Dexa Bone Density Study [facility] Start: 01-26-2023 Mammography MAMMOGRAM [facility] Start: 01-11-2023 Urine albumin quantitative [facility]; [facility] Work Phone: Start: 01-11-2023 Urnls dip stick/tablet reagent auto microscopy [facility]; [facility] Work Phone: Start: 01-11-2023 Assay of thyroid stimulating hormone tsh [facility]; [facility] Work Phone: Start: 01-11-2023 Comprehensive metabolic panel [facility]; [facility] Work Phone: Start: 01-11-2023 Lipid panel [facility]; [facility] Work Phone: Start: 01-11-2023 Blood count complete auto&auto difrntl wbc [facility]; [facility] Work Phone: Start: 01-11-2023 Procedure Education [facility]; [facility] Work Phone: Start: 01-11-2023 Provider Instructions for Treatment [facility]; [facility] Work Phone: Start: 11-08-2022 End: 01-08-2023 BCR/ABL1 P210 QUANTITATIVE PCR BLOOD [facility] Work Phone: Comment on above: Expected: 11/08/2022, Expires: 3 Start: 09-22-2022 Adult depression screening assessment DEPRESSION SCREENING [facility] Start: 07-30-2022 DEPRESSION ASSESSMENT DEPRESSION ASSESSMENT [facility] Start: 04-18-2022 Bx breast w/device 1st lesion stereotactic guid BX BREAST 1ST LESION STRTCTC [facility] Work Phone: Start: 03-30-2022 Influenza vaccination [facility] Start: 02-06-2022 Procedure Education [facility]; [facility] Work Phone: Start: 01-23-2022 End: 03-25-2022 BCR/ABL1 P210 QUANTITATIVE PCR BLOOD BCR/ABL1 P210 QUANTITATIVE PCR BLOOD Lab Routine Personal history of myeloid leukemia Expected: 01/23/2022, Expires: 03/25/2022 [facility] Work Phone: Comment on above: Expected: 01/23/2022, Expires: 2 Start: 01-23-2022 End: 03-25-2022 CBC W Auto Differential panel - Blood CBC + DIFF Lab STAT Personal history of myeloid leukemia Expected: 01/23/2022, Expires: 03/25/2022 [facility] Work Phone: Comment on above: Expected: 01/23/2022, Expires: 2 Start: 01-23-2022 End: 03-25-2022 Comprehensive metabolic 2000 panel - Serum or Plasma COMP METABOLIC PANEL Lab Routine Personal history of myeloid leukemia Expected: 01/23/2022, Expires: 03/25/2022 [facility] Work Phone: Comment on above: Expected: 01/23/2022, Expires: 2 Start: 01-23-2022 End: 03-25-2022 Magnesium [Mass/volume] in Serum or Plasma MAGNESIUM BLD Lab Routine Personal history of myeloid leukemia Expected: 01/23/2022, Expires: 03/25/2022 [facility] Work Phone: Comment on above: Expected: 01/23/2022, Expires: 2 Start: 01-23-2022 End: 03-25-2022 Phosphate [Mass/volume] in Serum or Plasma PHOSPHORUS INORGANIC Lab Routine Personal history of myeloid leukemia Expected: 01/23/2022, Expires: 03/25/2022 [facility] Work Phone: Comment on above: Expected: 01/23/2022, Expires: 2 Start: 01-12-2022 Procedure Education [facility]; [facility] Work Phone: Start: 01-12-2022 Provider Instructions for Treatment [facility]; [facility] Work Phone: Start: 10-24-2021 End: 12-24-2021 BCR/ABL1 P210 QUANTITATIVE PCR BLOOD BCR/ABL1 P210 QUANTITATIVE PCR BLOOD Lab Routine CML (chronic myelocytic leukemia) ([facility]) Expected: 10/24/2021, Expires: 12/24/2021 [facility] Work Phone: Comment on above: Expected: 10/24/2021, Expires: 2 Start: 10-24-2021 End: 12-24-2021 CBC W Auto Differential panel - Blood CBC + DIFF Lab STAT CML (chronic myelocytic leukemia) ([facility]) Expected: 10/24/2021, Expires: 12/24/2021 [facility] Work Phone: Comment on above: Expected: 10/24/2021, Expires: 2 Start: 10-24-2021 End: 12-24-2021 Comprehensive metabolic 2000 panel - Serum or Plasma COMP METABOLIC PANEL Lab Routine CML (chronic myelocytic leukemia) ([facility]) Expected: 10/24/2021, Expires: 12/24/2021 [facility] Work Phone: Comment on above: Expected: 10/24/2021, Expires: 2 Start: 10-24-2021 End: 12-24-2021 Magnesium [Mass/volume] in Serum or Plasma MAGNESIUM BLD Lab Routine CML (chronic myelocytic leukemia) (HCC) Expected: 10/24/2021, Expires: 12/24/2021 [facility] Work Phone: Comment on above: Expected: 10/24/2021, Expires: 2 Start: 10-24-2021 End: 12-24-2021 Phosphate [Mass/volume] in Serum or Plasma PHOSPHORUS INORGANIC Lab Routine CML (chronic myelocytic leukemia) (HCC) Expected: 10/24/2021, Expires: 12/24/2021 [facility] Work Phone: Comment on above: Expected: 10/24/2021, Expires: 2 Start: 09-30-2021 Culture bct isol&prsmptv id isolate ea urine URINE DONNY CULTURE-IDENTIFICATN ([id number]) [facility]; [facility] Work Phone: Start: 09-21-2021 Procedure Education [facility]; [facility] Work Phone: Start: 09-21-2021 Provider Instructions for Treatment [facility]; [facility] Work Phone: Start: 09-21-2021 Culture bacterial quanttative colony count urine URINE DONNY CULTURE-NAA COL COUNT ([id number]) [facility]; [facility] Work Phone: Start: 09-21-2021 Urinalysis qual/semiquant except immunoassays URINALYSIS ([id number]) [facility]; [facility] Work Phone: Start: 07-30-2021 DEPRESSION ASSESSMENT DEPRESSION ASSESSMENT [facility] Start: 07-28-2021 Procedure Education [facility]; [facility] Work Phone: Start: 07-28-2021 Provider Instructions for Treatment [facility]; [facility] Work Phone: Start: 07-28-2021 Lipoprotein blood naa numbers & subclasses [facility]; [facility] Work Phone: Start: 07-28-2021 Hepatic function panel [facility]; [facility] Work Phone: Start: 06-30-2021 Procedure Education [facility]; [facility] Work Phone: Start: 04-18-2021 Sars-cov-2 antibody [facility]; [facility] Work Phone: Start: 03-30-2021 Influenza vaccination INFLUENZA (#1) [facility] Start: 11-23-2020 HPV TESTING HPV TESTING [facility] Start: 11-23-2020 PAP TESTING PAP TESTING [facility] Start: 11-23-2020 Screening for malignant neoplasm of cervix [facility] Start: 06-02-2020 Culture bct isol&prsmptv id isolate ea urine URINE DONNY CULTURE-IDENTIFICATN ([id number]) [facility] Work Phone: Start: 02-18-2020 Procedure Education [facility] Work Phone: Start: 02-18-2020 Provider Instructions for Treatment [facility] Work Phone: Start: 02-18-2020 HbA1c (Bld) [Mass fraction] HGB A1C (00507) [facility] Work Phone: Comment on above: do in may 2020 Start: 02-18-2020 Hemoglobin glycosylated a1c [facility]; [facility] Work Phone: Comment on above: do in may 2020 Start: 02-18-2020 Lipoprotein blood naa numbers & subclasses [facility] Work Phone: Comment on above: domo in 2019 Start: 01-27-2020 [place] influenza [facility] Work Phone: Start: 01-22-2020 [place] influenza [facility] Work Phone: Start: 01-15-2020 Procedure Education [facility] Work Phone: Start: 01-15-2020 [place] influenza 2019 Novel Coronavirus (COVID-19), EL (00293) [facility] Work Phone: Start: 05-08-2019 Procedure Education [facility] Work Phone: Start: 03-12-2019 Provider Instructions for Treatment [facility] Work Phone: Start: 03-12-2019 Lipoprotein blood naa numbers & subclasses [facility] Work Phone: Comment on above: do in jun 2019 Start: 03-12-2019 Cobalamin (Vitamin B12) [Mass/Vol] VITAMIN B-12 (CYANOCOBALAMIN) (90090) [facility] Work Phone: Start: 02-20-2019 Urinalysis qual/semiquant except immunoassays [facility] Work Phone: Start: 02-20-2019 Urine albumin quantitative [facility] Work Phone: Start: 02-20-2019 CBC, PLATELETS & MANUAL DIFF ([id number]) [facility] Work Phone: Start: 02-20-2019 Assay of thyroid stimulating hormone tsh [facility]; [facility] Work Phone: Start: 02-20-2019 TSH Qn TSH (THYROID STIMULATING HORMONE) (86075) [facility] Work Phone: Start: 02-20-2019 Lipoprotein blood naa numbers & subclasses [facility] Work Phone: Start: 02-20-2019 Comprehensive metabolic panel [facility] Work Phone: Start: 07-18-2018 Patient Education [facility] Work Phone: Start: 07-18-2018 Procedure Education [facility] Work Phone: Start: 07-18-2018 Provider Instructions for Treatment [facility] Work Phone: Start: 12-11-2017 SHINGRIX VACCINE (1 of 2) SHINGRIX VACCINE (1 of 2) [facility] Start: 02-28-2017 Provider Instructions for Treatment [facility] Work Phone: Start: 02-28-2017 Urine albumin quantitative [facility] Work Phone: Start: 02-14-2017 Assay of thyroid stimulating hormone tsh [facility]; [facility] Work Phone: Start: 02-14-2017 Thyrotropin Qn TSH (29533) [facility] Work Phone: Start: 02-14-2017 Assay of free thyroxine [facility]; [facility] Work Phone: Start: 02-14-2017 T4 free mass conc T4, FREE (THYROXINE) ([id number]) [facility] Work Phone: Start: 02-14-2017 Assay of triiodothyronine t3 free [facility]; [facility] Work Phone: Start: 02-14-2017 T3 free mass conc T3, FREE (TRIDOTHYRONINE) (18665) [facility] Work Phone: Start: 02-14-2017 Urine albumin quantitative [facility] Work Phone: Start: 02-14-2017 Urinalysis qual/semiquant except immunoassays [facility] Work Phone: Start: 02-14-2017 Blood count complete automated [facility] Work Phone: Start: 02-14-2017 Comprehensive metabolic panel [facility] Work Phone: Start: 02-14-2017 Lipid panel [facility] Work Phone: Start: 02-14-2017 Iron binding capacity [facility] Work Phone: Start: 02-14-2017 Assay of iron [facility]; [facility] Work Phone: Start: 02-14-2017 Iron mass conc Iron (66770) [facility] Work Phone: Start: 02-14-2017 Assay of ferritin [facility] Work Phone: Start: 02-14-2017 Ferritin [Mass/Vol] Ferritin (86732) [facility] Work Phone: Start: 05-17-2016 Procedure Education [facility] Work Phone: Start: 05-17-2016 Provider Instructions for Treatment [facility] Work Phone: Start: 01-05-2016 Assay of prolactin [facility] Work Phone: Comment on above: 2 months Start: 01-05-2016 Protein mass conc PROLACTIN (86816) [facility] Work Phone: Comment on above: 2 months Start: 12-03-2015 Procedure Education [facility] Work Phone: Start: 11-01-2015 Procedure Education [facility] Work Phone: Start: 10-04-2015 Comprehensive metabolic panel [facility] Work Phone: Start: 10-04-2015 Urinalysis qual/semiquant except immunoassays [facility] Work Phone: Start: 10-04-2015 CBC, PLATELETS & MANUAL DIFF (09016) [facility] Work Phone: Start: 10-04-2015 25 hydroxy includes fractions if performed [facility] Work Phone: Start: 10-04-2015 Lipid panel [facility] Work Phone: Start: 10-04-2015 Assay of thyroid stimulating hormone tsh [facility]; [facility] Work Phone: Start: 10-04-2015 Thyrotropin Qn TSH (THYROID STIMULATING HORMONE) (78825) [facility] Work Phone: Start: 08-18-2015 Patient Education [facility] Work Phone: Start: 08-18-2015 Procedure Education [facility] Work Phone: Start: 06-26-2015 Mammography MAMMOGRAM [facility] Start: 04-11-2015 Lipid 1996 panel - Serum or Plasma Lipid Screening [facility] Start: 04-11-2015 Lipid panel Lipid Screening [facility] Start: 04-11-2015 LIPID SCREEN LIPID SCREEN [facility] Start: 09-18-2014 Procedure Education [facility] Work Phone: Start: 04-22-2014 Procedure Education [facility] Work Phone: Start: 01-28-2014 Procedure Education [facility] Work Phone: Start: 03-21-2013 Sedimentation rate rbc non-automated [facility] Work Phone: Start: 03-21-2013 C-reactive protein [facility]; [facility] Work Phone: Start: 03-21-2013 CRP mass conc C-REACTIVE PROTEIN (23230) [facility] Work Phone: Start: 03-21-2013 Comprehensive metabolic panel [facility] Work Phone: Start: 03-21-2013 Blood count manual cell count each [facility] Work Phone: Start: 03-17-2013 Culture bacterial any source anaerobic iso&id [facility] Work Phone: Start: 03-17-2013 Patient Education [facility] Work Phone: Start: 03-17-2013 Provider Instructions for Treatment [facility] Work Phone: Start: 02-18-2013 Patient Education [facility] Work Phone: Start: 02-18-2013 Provider Instructions for Treatment [facility] Work Phone: Start: 01-27-2013 Lipid panel [facility] Work Phone: Start: 01-27-2013 Comprehensive metabolic panel [facility] Work Phone: Start: 01-27-2013 Provider Instructions for Treatment [facility] Work Phone: Start: 12-11-2012 COLOGUARD (FIT-DNA) COLOGUARD (FIT-DNA) [facility] Start: 12-11-[address] COLONOGRAPHY [facility] Start: 12-11-2012 FECAL OCCULT BLOOD FECAL OCCULT BLOOD [facility] Start: 12-11-2012 Screening for malignant neoplasm of colon [facility] Start: 12-11-2012 SIGMOIDOSCOPY SIGMOIDOSCOPY [facility] Start: 08-16-2012 Patient Education [facility] Work Phone: Start: 08-16-2012 Comprehensive metabolic panel [facility] Work Phone: Start: 08-16-2012 Blood count manual cell count each [facility] Work Phone: Start: 08-16-2012 Lipid panel [facility] Work Phone: Start: 07-16-2012 Provider Instructions for Treatment [facility] Work Phone: Start: 07-03-2012 Patient Education [facility] Work Phone: Start: 03-22-2012 Provider Instructions for Treatment [facility] Work Phone: Start: 03-20-2012 Hepatic function panel [facility] Work Phone: Start: 03-20-2012 Lipid panel [facility] Work Phone: Start: 03-20-2012 Hpv, dna, amp probe [facility] Work Phone: Start: 03-20-2012 Cytp cerv/vag auto thin layer prep mnl screen [facility] Work Phone: Start: 03-20-2012 Patient Education [facility] Work Phone: Start: 03-20-2012 Provider Instructions for Treatment [facility] Work Phone: Start: 09-29-2011 Provider Instructions for Treatment [facility] Work Phone: Start: 09-29-2011 Hepatic function panel [facility] Work Phone: Start: 09-29-2011 Lipid panel [facility] Work Phone: Start: 03-07-2011 Sedimentation rate rbc non-automated [facility] Work Phone: Start: 03-07-2011 C-reactive protein [facility]; [facility] Work Phone: Start: 03-07-2011 CRP mass conc C-REACTIVE PROTEIN (12990) [facility] Work Phone: Start: 03-07-2011 Assay of thyroid stimulating hormone tsh [facility]; [facility] Work Phone: Start: 03-07-2011 Thyrotropin Qn TSH (66992) [facility] Work Phone: Start: 03-07-2011 Comprehensive metabolic panel [facility] Work Phone: Start: 03-07-2011 Lipid panel [facility] Work Phone: Start: 02-28-2011 Provider Instructions for Treatment [facility] Work Phone: Start: 06-14-2010 Cul bact xcpt urine blood/stool aerobic isol [facility] Work Phone: Start: 03-01-2010 Comprehensive metabolic panel [facility] Work Phone: Start: 03-01-2010 Lactate dehydrogenase ldh [facility] Work Phone: Start: 03-01-2010 Antinuclear antibodies kathryn [facility]; [facility] Work Phone: Start: 03-01-2010 Nuclear Ab IF titer (S) KATHRYN (ANTINUCLEAR ANTIBODY) (35941) [facility] Work Phone: Start: 03-01-2010 Rheumatoid factor quantitative [facility] Work Phone: Start: 03-01-2010 Blood count manual cell count each [facility] Work Phone: Start: 03-01-2010 Culture bacterial quanttative colony count urine [facility] Work Phone: Start: 03-01-2010 Culture bacterial blood aerobic w/id isolates [facility] Work Phone: Comment on above: x 2 Start: 03-01-2010 Provider Instructions for Treatment [facility] Work Phone: Start: 01-11-2010 Sedimentation rate rbc non-automated [facility] Work Phone: Start: 01-11-2010 C-reactive protein [facility]; [facility] Work Phone: Start: 01-11-2010 CRP mass conc C-REACTIVE PROTEIN (93008) [facility] Work Phone: Start: 01-11-2010 Assay of thyroid stimulating hormone tsh [facility]; [facility] Work Phone: Start: 01-11-2010 Thyrotropin Qn TSH (00210) [facility] Work Phone: Start: 01-11-2010 Blood count manual cell count each [facility] Work Phone: Start: 01-11-2010 Hepatic function panel [facility] Work Phone: Start: 01-11-2010 Lipid panel [facility] Work Phone: Start: 09-10-2009 Provider Instructions for Treatment [facility] Work Phone: Start: 09-10-2009 C-reactive protein [facility]; [facility] Work Phone: Start: 09-10-2009 CRP mass conc C-REACTIVE PROTEIN (72444) [facility] Work Phone: Start: 09-10-2009 Blood count manual cell count each [facility] Work Phone: Start: 09-10-2009 Hepatic function panel [facility] Work Phone: Start: 09-10-2009 Lipid panel [facility] Work Phone: Start: 05-03-2009 C-reactive protein [facility]; [facility] Work Phone: Start: 05-03-2009 CRP mass conc C-REACTIVE PROTEIN (59932) [facility] Work Phone: Start: 05-03-2009 Blood count manual cell count each [facility] Work Phone: Start: 05-03-2009 Assay of thyroid stimulating hormone tsh [facility]; [facility] Work Phone: Start: 05-03-2009 Thyrotropin Qn TSH (67741) [facility] Work Phone: Start: 05-03-2009 Hepatic function panel [facility] Work Phone: Start: 05-03-2009 Lipid panel [facility] Work Phone: Start: 03-29-2009 Antinuclear antibodies kathryn [facility]; [facility] Work Phone: Start: 03-29-2009 Nuclear Ab IF titer (S) KATHRYN (ANTINUCLEAR ANTIBODY) (83816) [facility] Work Phone: Start: 03-29-2009 C-reactive protein [facility]; [facility] Work Phone: Start: 03-29-2009 CRP mass conc C-REACTIVE PROTEIN (70158) [facility] Work Phone: Start: 03-29-2009 Sedimentation rate rbc non-automated [facility] Work Phone: Start: 03-29-2009 Urnls dip stick/tablet rgnt auto w/o microscopy [facility] Work Phone: Start: 03-29-2009 Lipid panel [facility] Work Phone: Start: 03-29-2009 Cobalamin (Vitamin B12) mass conc VITAMIN B-12 (CYANOCOBALAMIN) (30133) [facility] Work Phone: Start: 03-29-2009 Cyanocobalamin vitamin b-12 [facility]; [facility] Work Phone: Start: 03-29-2009 25 hydroxy includes fractions if performed [facility] Work Phone: Start: 03-29-2009 Comprehensive metabolic panel [facility] Work Phone: Start: 03-29-2009 Assay of triiodothyronine t3 free [facility]; [facility] Work Phone: Start: 03-29-2009 T3 free mass conc T3, FREE (TRIDOTHYRONINE) (90724) [facility] Work Phone: Start: 03-29-2009 Assay of free thyroxine [facility]; [facility] Work Phone: Start: 03-29-2009 T4 free mass conc T4, FREE (THYROXINE) (08257) [facility] Work Phone: Start: 03-29-2009 Blood count manual cell count each [facility] Work Phone: Start: 03-29-2009 Assay of thyroid stimulating hormone tsh [facility]; [facility] Work Phone: Start: 03-29-2009 Thyrotropin Qn TSH (60598) [facility] Work Phone: Start: 10-12-2008 Provider Instructions for Treatment [facility] Work Phone: Start: 07-03-2007 Provider Instructions for Treatment [facility] Work Phone: Start: 07-03-2007 Culture bacterial quanttative colony count urine [facility] Work Phone: Start: 03-11-2007 Hepatic function panel [facility] Work Phone: Comment on above: recheck in 1 month Start: 03-11-2007 Provider Instructions for Treatment [facility] Work Phone: Start: 07-31-2006 Provider Instructions for Treatment [facility] Work Phone: Start: 07-31-2006 Hepatic function panel [facility] Work Phone: Start: 07-31-2006 Lipid panel [facility] Work Phone: Start: 07-31-2006 Glucose [Mass/Vol] GLUCOSE, PP/2 HOUR (55706) [facility] Work Phone: Start: 07-31-2006 Glucose quantitative blood xcpt reagent strip [facility] Work Phone: Start: 05-24-2006 Hepatic function panel [facility] Work Phone: Start: 05-24-2006 Lipid panel [facility] Work Phone: Start: 05-24-2006 Assay of folic acid serum [facility] Work Phone: Start: 05-24-2006 Cobalamin (Vitamin B12) mass conc VITAMIN B-12 (CYANOCOBALAMIN) (18789) [facility] Work Phone: Start: 05-24-2006 Cyanocobalamin vitamin b-12 [facility]; [facility] Work Phone: Start: 05-24-2006 Urinalysis qual/semiquant except immunoassays [facility] Work Phone: Start: 05-24-2006 Blood count manual cell count each [facility] Work Phone: Start: 05-24-2006 Comprehensive metabolic panel [facility] Work Phone: Start: 05-24-2006 Assay of thyroid stimulating hormone tsh [facility]; [facility] Work Phone: Start: 05-24-2006 Thyrotropin Qn TSH (00334) [facility] Work Phone: Start: 05-24-2006 Provider Instructions for Treatment [facility] Work Phone: Start: 12-11-1988 Screening for malignant neoplasm of [facility] Start: 12-11-1986 Hepatitis B Vaccine (1 of 3 - 19+ 3-dose series) Hepatitis B Vaccine (1 of 3 - 19+ 3-dose series) [facility] Start: 12-11-1986 Pneumococcal Vaccine: 50+ (1 of 2 - PCV) Pneumococcal Vaccine: 50+ (1 of 2 - PCV) [facility] Start: 12-11-1986 SHINGRIX VACCINE (1 of 2) SHINGRIX VACCINE (1 of 2) [facility] Start: 12-11-1986 Urine microalbumin profile [facility] Start: 12-11-1986 Zoster Vaccines (1 of 2) Zoster Vaccines (1 of 2) [facility] Start: 12-11-1985 Anxiety Screening Anxiety Screening [facility] Start: 12-11-1985 Depression Screening Depression Screening [facility] Start: 12-11-1985 Diabetes mellitus screening Diabetes Screening [facility] Start: 12-11-1985 HEPATITIS C SCREENING HEPATITIS C SCREENING [facility] Start: 12-11-1985 Hepatitis C screening Hepatitis C Screening [facility] Start: 12-11-1985 HIV SCREENING HIV SCREENING [facility] Start: 12-11-1985 HIV screening HIV Screening [facility] Start: 1979 COVID-19 VACCINE (1) COVID-19 VACCINE (1) [facility] Start: 12-11-1973 PNEUMOCOCCAL (1 - PCV) PNEUMOCOCCAL (1 - PCV) [facility] Start: 12-11-1973 [facility] Start: 12-11-1973 Pneumococcal Vaccine: Pediatrics (0 to 5 Years) and At-Risk Patients (6 to 64 Years) (1 - PCV) Pneumococcal Vaccine: Pediatrics (0 to 5 Years) and At-Risk Patients (6 to 64 Years) (1 - PCV) [facility] Start: 12-11-1972 COVID-19 VACCINE (#1) COVID-19 VACCINE (#1) [facility] Start: 12-11-1968 MMR Vaccines (1 of 1 - Standard series) MMR Vaccines (1 of 1 - Standard series) [facility] Start: 06-13-1968 COVID-19 VACCINE (#1) COVID-19 VACCINE (#1) [facility] Start: 1967 HEPATITIS B (1 of 3 - 3-dose series) HEPATITIS B (1 of 3 - 3-dose series) [facility] Start: 1967 Hepatitis B Vaccine (1 of 3 - 3-dose series) Hepatitis B Vaccine (1 of 3 - 3-dose series) [facility] Start: 1967 Hepatitis B Vaccines (1 of 3 - 3-dose series) Hepatitis B Vaccines (1 of 3 - 3-dose series) [facility] Start: 1967 HIV screening HIV Screening [facility] Start: 1967 Lipid panel Lipid Panel [facility] Start: 1967 Screening for malignant neoplasm of colon [facility] Start: 1967 Yearly Adult Physical Yearly Adult Physical [facility] End: 07-26-2023 CT for calcium scoring WO contrast and CTA W contrast IV Heart and coronary arteries [facility] Service Area Work Phone: Comment on above: Once for 1 Occurrences starting 07/26/20 until 07/26/2023 End: 07-15-2023 Diagnostic mammography computer-aided detcj uni GABINO DIAGNOSTIC LT Radiology Routine Abnormal mammogram with microcalcification Papilloma of left breast 1 Occurrences starting 06/15/2022 until 07/15/2023 [facility] Work Phone: Comment on above: 1 Occurrences starting 06/15/2022 until 07/15/2023 End: 04-28-2024 GABINO STEREO BX BREAST RIGHT GABINO STEREO BX BREAST RIGHT Radiology Routine Abnormal finding on breast imaging 1 Occurrences starting 03/30/2023 until 04/28/2024 [facility] Work Phone: Comment on above: 1 Occurrences starting 03/30/2023 until 04/28/2024 End: 03-31-2023 Mri brain brain stem w/o w/contrast material MRI BRAIN WO/W IVCON Radiology Routine Encounter for long-term (current) use of medications Multiple sclerosis (HCC) 1 Occurrences starting 03/01/2022 until 03/31/2023 [facility] Work Phone: Comment on above: 1 Occurrences starting 03/01/2022 until 03/31/2023 End: 03-28-2024 Mri brain brain stem w/o w/contrast material MRI BRAIN WO/W IVCON Radiology Routine Multiple sclerosis (HCC) 1 Occurrences starting 02/27/2023 until 03/28/2024 [facility] Work Phone: Comment on above: 1 Occurrences starting 02/27/2023 until 03/28/2024 End: 12-20-2023 XR SHOULDER GENERAL 3V OR MORE AP/TRUE AP/OTHER LEFT XR SHOULDER GENERAL 3V OR MORE AP/TRUE AP/OTHER LEFT Radiology Routine Pain 1 Occurrences starting 11/20/2022 until 12/20/2023 [facility] Work Phone: Comment on above: 1 Occurrences starting 11/20/2022 until 12/20/2023 [facility] Work Phone: [facility] Work Phone: [facility] Work Phone: [facility] Work Phone: [facility] Work Phone: [facility] Work Phone: [facility] Work Phone: [facility] Work Phone: [facility] Work Phone: [facility] Work Phone[facility] Work Phone[facility] Work Phone: [facility] Work Phone: [facility] Work Phone: [facility] Work Phone: [facility] Work Phone: [facility] Work Phone: [facility] Work Phone: [facility] Work Phone: [facility] Work Phone: [facility] Work Phone: [facility] Work Phone: [facility] Work Phone: [facility] Work Phone: [facility] Work Phone: [facility] Work Phone: [facility] Work Phone: [facility]; [facility] Work Phone: [facility]; [facility] Work Phone: [facility]; [facility] Work Phone: [facility] Work Phone: [facility] Immunizations Immunization Date Immunization Notes [facility] Provider [facility] 04-16-2018 tetanus toxoid, redu elliott diphtheria toxoid, and acellular pertussis vaccine, adsorbed Dr. Miesha Guillen Work Phone: [facility] Payers Date Payer Category Payer Self-pay [id number] 2019 Private Health Insurance MMO [employer] PPO Member Subscriber Plan / Payer (Effective 2019-Present) Name: Bryanna Ramirez Relation to Subscriber: Self Name: Bryanna Ramirez Payer ID: Not on file Type: PPO Address: [place] [id number] 2019 Unknown 2019 Unknown MMO MMO [employer] [id number] 2019- [phone] [place] [id number] PPO [id number] 2006 Unknown [id number] 1967 Unknown [id number] 1967 Unknown [id number] Unknown [id number] Unknown [id number] Unknown [id number] Unknown [id number] Social History Date Type Detail Facility Start: 08-30-2022 End: 11-30-2022 Alcohol Use Never smoker [facility] Work Phone: Comment on above: Occasional alcohol u se Tobacco use: Never smoker. [facility] Work Phone: Tobacco use: Tobacco use: [facility] Work Phone: Start: 03-14-2011 End: 04-25-2022 Tobacco smoking status NHIS Never smoked tobacco [facility] Start: 09-23-2021 End: 07-18-2024 Alcohol intake Current drinker of alcohol (finding) [facility] Start: 1965 Sex Assigned At Not on file [facility] Start: 10-07-2021 End: 07-26-2023 Exposure to SARS-CoV-2 (event) Not sure [facility] Start: 03-14-2011 End: 04-25-2022 Tobacco use and exposure Smokeless tobacco non-user [facility] Start: 07-01-2021 End: 07-01-2021 Tobacco smoking status SDIS Unknown if ever smoked [facility] Start: 1965 Sex Assigned At Female [facility] Start: 08-30-2022 End: 11-30-2022 Tobacco use panel [facility] Adult Depression Screening Assessment 0 [facility] Functional Status Date Assessment Result Facility 07-25-2021 LP-IR Score 40 [facility] Work Phone: Comment on above: INSULIN RESISTANCE Oleksandr NG <--Insulin Sensitive Insulin Resistant--> Percentile in Reference PopulationInsulin Resistance ScoreLP-IR Score Low 25th 50th 75th High <27 27 45 63 >63LP-IR Score is inaccurate if patient is non-fasting. .The LP-IR score is a laboratory developed index that has beenassociated with insulin resistance and diabetes risk and should beused as one component of a physician's clinical assessment. Test(s) 648713-GPA-T ; 648631-AND-C; 230110-Gotdnnnbiqtcz; 701699-Ligkharsira, Total; 870155-MUQ-T (Total); 524061-Htkqd LDL-P; 140660-CYX Size; 626225-GD-MU Scorewas developed and its performance characteristics determinedby [employer]. It has not been cleared or approved by the Foodand Drug Administration.PATIENT WAS FASTINGPERFORMED BY: [employer] [address] [id number] BY: [employer] [facility] TacticalUNM Sandoval Regional Medical CenterTjptxp6378 [facility] [id number] 01-27-2020 LP-IR Score <25 [facility] Work Phone: Comment on above: INSULIN RESISTANCE Oleksandr NG <--Insulin Sensitive Insulin Resistant--> Percentile in Reference PopulationInsulin Resistance ScoreLP-IR Score Low 25th 50th 75th High <27 27 45 63 >63LP-IR Score is inaccurate if patient is non-fasting. .The LP-IR score is a laboratory developed index that has beenassociated with insulin resistance and diabetes risk and should beused as one component of a physician's clinical assessment. Test(s) 554007-XNK-Y ; 767445-EHA-Q; 140228-MPE-A; 657043-Iimhzinhdbdnd; 721754-Ykrtwjrdvje, Total; 909167-KLH-Z (Total);293818-Zfgts LDL-P; 674226-IFQ Size; 711730-JL-SX Scorewas developed and its performance characteristics determinedby [employer]. It has not been cleared or approved by the Foodand Drug Administration.PATIENT WAS FASTINGPERFORMED BY: [employer] [address] [id number] BY: [employer] EnterprisesIn[facility] WoodburyKbgbbm0384 [facility] [id number] 02-22-2015 Are you deaf, or do you have serious difficulty hearing No 02/22/2015 10:08 AM Tara Conde Ma, VALENCIA No [facility] 02-22-2015 Are you blind, or do you have serious difficulty seeing, even when wearing glasses No 02/22/2015 10:08 AM EDT Tara Hewitt Ma, MA No [facility] 02-22-2015 Do you have serious difficulty walking or climbing stairs No 02/22/2015 10:08 AM EDT Tara Hewitt Ma, MA No [facility] 02-22-2015 Do you have difficul ty dressing or bathing No 02/22/2015 10:08 AM EDT Tara Hewitt Ma, MA No [facility] 02-22-2015 Because of a physica l, mental, or emotional condition, do you have difficulty doing errands alone such as visiting a physician's office or shopping No 02/22/2015 10:08 AM EDT Tara Hewitt Ma, MA No [facility] Mental Status Date Assessment Result Facility 02-22-2015 Because of a physica l, mental, or emotional condition, do you have serious difficulty concentrating, remembering, or making decisions No 02/22/2015 10:08 AM EDT Tara Hewitt Ma, MA No [facility] Clinical Notes 10-19-2016 to 01-13-2025 Telephone Encounter - Susie Byrd - 01/13/2025 1:19 PM EDTTelephone Encounter - Susie Byrd - 01/13/2025 1:19 PM Sp Madera DO - 07/18/2024 4:23 PM ESTPatient Instructions Note Date & Type Note Facility 01-13-2025 Telephone encounter Note Patient calls stating she has labs due on 01/15. She is asking if we have secured authorization for the labs. Please advise. [facility] Work Phone: 01-13-2025 Miscellaneous Notes Patient calls stating she has labs due on 01/15. She is asking if we have secured authorization for the labs. Please advise. documented in this encounter [facility] 07-18-2024 Note HNO ID: [id number] Author: SP LANG, DO Service: ? Author Type: Physician Type: Progress Notes Filed: 07/20/2024 10:34 Note Text: Diagnosis: 1) CML HPI: The patient is a 58 yo female with h/o mild, but slow increase in total WBC and platelet count over the 2 years prior to diagnosis of CML. Was seen here for initial consultation 02/2010. PBS suggestive of CML. FISH for BCR/ABL on peripheral WBCs positive. Baseline bone marrow biopsy 03/16/10; karyotype 18 of 20 metaphases had BCR/ABL. No other cytogenetic abnormalities. Baseline QTc was 443 msec. Diagnosed with MS following several episodes optic neuritis in the fall of 2014. Diagnosed with C diff colitis when seen because diarrhea did not subside around 03/17. CT 03/19--Diffuse pericolonic inflammatory change and wall thickening of the colon. Treated with Flagyl. Previous therapy: 1) Nilotinib started 04/15/2010. Small b/l effusion had been only toxicity of note. Resolved after prn use Lasix. Interim history: Remains off nilotinib. No recurrent symptoms of MS. Feels well in general and has no complaints today. PMH, medications and allergies as below personally reviewed by me today. Any changes documented in appropriate section. ROS: Constitutional: No recent fever. No night sweats. No change in appetite. HEENT: No recent change in voice or hearing. Resp: No cough, wheeze and hemoptysis. No shortness of breath at rest. CVS: No exertional chest pain, PND, orthopnea and LE edema. GI: No dysphagia or odynophagia. No abdominal pain bloating or distention. : No dysuria or gross hematuria. Derm: No rash. Heme: No unusual bleeding or unexplained bruising. Psych: Normal mood. PHYSICAL EXAM: Vitals: Blood pressure 130/86, pulse 78, temperature 36.7 ?C (98 ?F), temperature source Temporal, weight 83.5 kg (184 lb), last menstrual period 05/09/2016, SpO2 98%. Well-appearing and in no acute distress. EYES: Sclerae are anicteric bilaterally. LYMPHATIC: There is no palpable cervical or supraclavicular adenopathy. CARDIOVASCULAR: Rhythm is regular. ABDOMEN: The abdomen is nondistended. No splenomegaly. Extremities: No swelling or edema. SKIN: No jaundice. LABS: ASSESSMENT/PLAN: (C92.10) CML (chronic myelocytic leukemia) (HCC) (primary encounter diagnosis) Assessment: -The patient is a 58 yo female diagnosed with chronic phase CML in 2009. Complete molecular remission for 9 years--undetectable transcripts as of 09/26/2010. Only exception was May 2011 where there was a weak positive detection but not quantifiable. PCR 05/31/2020 revealed transcripts below level of quantification. Most recent bone marrow aspirate/biopsy and karyotype was 11/08/2011--no morphologic evidence of CML and karyotype 46 XX []. Insurance is only covering one PCR test per year. -Maintaining deep to undetectable transcript level for 4+ years. -Reviewed labs and current molecular testing. BCR::ABL fusion undetectable. -Low risk that she would have recurrence/significant progression in next 6 months. -Discussed calling for unexplained fatigue, unusual bleeding, unexplained bruising or left upper quadrant pain/early satiety in the interim. Plan: -CBC/PCR BCR/ABL in about 6 months. -Same labs then OV in about a year. Portions of this documentation were copied and pasted from my previous office visit note dated 01/01/2024 in order to provide a cohesive continuity of the history. The note has been reviewed and edited and updated as necessary. Sp Lang DO [facility] 07-18-2024 History of Present illness Narrative Diagnosis: 1) CML HPI: The patient is a 58 yo female with h/o mild, but slow increase in total WBC and platelet count over the 2 years prior to diagnosis of CML. Was seen here for initial consultation 02/2010. PBS suggestive of CML. FISH for BCR/ABL on peripheral WBCs positive. Baseline bone marrow biopsy 03/16/10; karyotype 18 of 20 metaphases had BCR/ABL. No other cytogenetic abnormalities. Baseline QTc was 443 msec. Diagnosed with MS following several episodes optic neuritis in the fall of 2014. Diagnosed with C diff colitis when seen because diarrhea did not subside around 03/17. CT 03/19--Diffuse pericolonic inflammatory change and wall thickening of the colon. Treated with Flagyl. Previous therapy: 1) Nilotinib started 04/15/2010. Small b/l effusion had been only toxicity of note. Resolved after prn use Lasix. Interim history: Remains off nilotinib. No recurrent symptoms of MS. Feels well in general and has no complaints today. PMH, medications and allergies as below personally reviewed by me today. Any changes documented in appropriate section. ROS: Constitutional: No recent fever. No night sweats. No change in appetite. HEENT: No recent change in voice or hearing. Resp: No cough, wheeze and hemoptysis. No shortness of breath at rest. CVS: No exertional chest pain, PND, orthopnea and LE edema. GI: No dysphagia or odynophagia. No abdominal pain bloating or distention. : No dysuria or gross hematuria. Derm: No rash. Heme: No unusual bleeding or unexplained bruising. Psych: Normal mood. PHYSICAL EXAM: Vitals: Blood pressure 130/86, pulse 78, temperature 36.7 C (98 F), temperature source Temporal, weight 83.5 kg (184 lb), last menstrual period 05/09/2016, SpO2 98%. Well-appearing and in no acute distress. EYES: Sclerae are anicteric bilaterally. LYMPHATIC: There is no palpable cervical or supraclavicular adenopathy. CARDIOVASCULAR: Rhythm is regular. ABDOMEN: The abdomen is nondistended. No splenomegaly. Extremities: No swelling or edema. SKIN: No jaundice. LABS: ASSESSMENT/PLAN: (C92.10) CML (chronic myelocytic leukemia) (HCC) (primary encounter diagnosis) Assessment: -The patient is a 58 yo female diagnosed with chronic phase CML in 2009. Complete molecular remission for 9 years--undetectable transcripts as of 09/26/2010. Only exception was May 2011 where there was a weak positive detection but not quantifiable. PCR 05/31/2020 revealed transcripts below level of quantification. Most recent bone marrow aspirate/biopsy and karyotype was 11/08/2011--no morphologic evidence of CML and karyotype 46 XX []. Insurance is only covering one PCR test per year. -Maintaining deep to undetectable transcript level for 4+ years. -Reviewed labs and current molecular testing. BCR::ABL fusion undetectable. -Low risk that she would have recurrence/significant progression in next 6 months. -Discussed calling for unexplained fatigue, unusual bleeding, unexplained bruising or left upper quadrant pain/early satiety in the interim. Plan: -CBC/PCR BCR/ABL in about 6 months. -Same labs then OV in about a year. Portions of this documentation were copied and pasted from my previous office visit note dated 01/01/2024 in order to provide a cohesive continuity of the history. The note has been reviewed and edited and updated as necessary. Sp Lang DO documented in this encounter [facility] 01-01-2024 History of Present illness Narrative Diagnosis: 1) CML HPI: The patient is a 58 yo female with h/o mild, but slow increase in total WBC and platelet count over the 2 years prior to diagnosis of CML. Was seen here for initial consultation 02/2010. PBS suggestive of CML. FISH for BCR/ABL on peripheral WBCs positive. Baseline bone marrow biopsy 03/16/10; karyotype 18 of 20 metaphases had BCR/ABL. No other cytogenetic abnormalities. Baseline QTc was 443 msec. Diagnosed with MS following several episodes optic neuritis in the fall of 2014. Diagnosed with C diff colitis when seen because diarrhea did not subside around 03/17. CT 03/19--Diffuse pericolonic inflammatory change and wall thickening of the colon. Treated with Flagyl. Previous therapy: 1) Nilotinib started 04/15/2010. Small b/l effusion had been only toxicity of note. Resolved after prn use Lasix. Interim history: Remains off nilotinib. Eating better. Loosing weight. Down about 40 pounds now. No recurrent symptoms of MS. PMH, medications and allergies as below personally reviewed by me today. Any changes documented in appropriate section. ROS: Constitutional: No recent fever. No night sweats. No change in appetite. HEENT: No recent change in voice or hearing. Resp: No cough, wheeze and hemoptysis. No shortness of breath at rest. CVS: No exertional chest pain, PND, orthopnea and LE edema. GI: No dysphagia or odynophagia. No abdominal pain bloating or distention. : No dysuria or gross hematuria. Derm: No rash. Heme: No unusual bleeding or unexplained bruising. Psych: Normal mood. PHYSICAL EXAM: Vitals: Blood pressure 121/77, pulse 80, temperature 36.6 C (97.8 F), temperature source Temporal, weight 78.9 kg (174 lb), last menstrual period 05/09/2016, SpO2 97%. Well-appearing and in no acute distress. EYES: Sclerae are anicteric bilaterally. LYMPHATIC: There is no palpable cervical or supraclavicular adenopathy. RESPIRATORY: Inspiratory breath sounds are of normal intensity in all velásquez. CARDIOVASCULAR: Rhythm is regular. ABDOMEN: The abdomen is nondistended. No splenomegaly. Extremities: No swelling or edema. SKIN: No jaundice. LABS: Component Latest Ref Rng & Units 05/17/2023 WBC 3.70 - 11.00 k/uL 8.71 RBC 3.90 - 5.20 m/uL 4.80 Hemoglobin 11.5 - 15.5 g/dL 14.5 Hematocrit 36.0 - 46.0 % 44.6 MCV 80.0 - 100.0 fL 92.9 MCH 26.0 - 34.0 pg 30.2 MCHC 30.5 - 36.0 g/dL 32.5 RDW-CV 11.5 - 15.0 % 13.0 Platelet Count 150 - 400 k/uL 279 MPV 9.0 - 12.7 fL 8.9 (L) Neut% % 68.3 Abs Neut (ANC) 1.45 - 7.50 k/uL 5.95 Lymph% % 22.3 Abs Lymph 1.00 - 4.00 k/uL 1.94 Antelope% % 7.0 Abs Antelope <0.87 k/uL 0.61 Eosin% % 1.6 Abs Eosin <0.46 k/uL 0.14 Baso% % 0.5 Abs Baso <0.11 k/uL 0.04 Immature Gran % % 0.3 IMMATURE GRANS (ABS) <0.10 k/uL 0.03 Protein, Total 6.3 - 8.0 g/dL 6.7 Albumin 3.9 - 4.9 g/dL 4.6 Calcium 8.5 - 10.2 mg/dL 9.8 Bilirubin, Total 0.2 - 1.3 mg/dL 0.4 Alkaline Phosphatase 34 - 123 U/L 79 AST 13 - 35 U/L 18 ALT 7 - 38 U/L 15 Glucose 74 - 99 mg/dL 96 BUN 7 - 21 mg/dL 15 Creatinine 0.58 - 0.96 mg/dL 0.75 Sodium 136 - 144 mmol/L 136 Potassium 3.7 - 5.1 mmol/L 4.3 Chloride 97 - 105 mmol/L 102 CO2 22 - 30 mmol/L 25 Anion Gap 9 - 18 mmol/L 9 eGFR >=60 mL/min/1.73m 94 BCR/ABL1 p210 Quantitative PCR Laboratory Accession Number: [id number] Result: UNDETECTED MR: N/A %IS: N/A ASSESSMENT/PLAN: (C92.10) CML (chronic myelocytic leukemia) ([facility]) (primary encounter diagnosis) Assessment: -The patient is a 58 yo female diagnosed with chronic phase CML in 2009. Complete molecular remission for 9 years--undetectable transcripts as of 09/26/2010. Only exception was May 2011 where there was a weak positive detection but not quantifiable. PCR 05/31/2020 revealed transcripts below level of quantification. Most recent bone marrow aspirate/biopsy and karyotype was 11/08/2011--no morphologic evidence of CML and karyotype 46 XX [20/20]. Insurance is only covering one PCR test per year. -Maintaining deep to undetectable transcript level for more than 3 years. -Reviewed labs and current molecular testing. Plan: -CBC in 3 months. -CBC/PCR BCR/ABL then OV a week or so later in about 6 months. Portions of this documentation were copied and pasted from previous office visit notes in order to provide a cohesive continuity of the history. The note has been reviewed and edited and updated as necessary. I spent a total of 15 minutes on the date of the service which included preparing to see the patient, [id number] patient care, completing clinical documentation, obtaining and/or reviewing separately obtained history, performing a medically appropriate examination, counseling and educating the patient/family/caregiver, communicating with other HCPs (not separately reported), and communicating results to the patient/family/caregiver. Sp Lang DO documented in this encounter [facility] 08-30-2023 Instructions Mary Landis APRN.FAMILY SERVICES ASSISTANT - 08/30/2023 3:40 PM EST PLAN - Continue to monitor off DMT - MRI brain w/wo Gd 1 year documented in this encounter [facility] 08-30-2023 History of Present illness Narrative [facility] MULTIPLE SCLEROSIS FOLLOWUP/ESTABLISHED PATIENT VISIT VIRTUAL VISIT Principal Neurologic Diagnosis: Multiple Sclerosis HISTORY OF ILLNESS Onset: 07/2013 (?) Diagnosis of MS: 03/2014 (new GdE MRI lesion) Disease course at onset: relapsing-remitting Current disease course: relapsing-remitting Previous disease therapies: - Copaxone started 04/2014 - 05/2014 (severe injection site reactions) - IVMP 11/2014 for relapse - Tecfidera 06/2014 - 02/2022 (stability, flushing, d/c tx of nilotinib [tyrosine kinase inhibitor] for CML) Current disease therapy: None Most recent MRI brain: 08/30/2022 and 08/30/2023 Most recent MRI cervical spine: 04/26/2016 Most recent MRI thoracic spine: 04/26/2016 CSF: not done NMO AQP-4: 12/04/2014 (-) JCV serology: 10/16/2014 0.12 (-) VZV Ig10/16/2014 (+) CHIEF COMPLAINT: Follow-up for monitoring off MS modifying therapy INTERVAL HISTORY Usual treating team: Romario/Sabiha The patient's appointment was conducted by virtual visit via [employer] Zoom with patient consent, unaccompanied. I have communicated my name and active licensure. The patient's identity and physical location were verified at the time of this visit. Either the patient or their legal counter sales representative has been informed of the risks and benefits of -- and alternatives to -- treatment through a remote evaluation and consents to proceed with the evaluation remotely. The patient was last seen 02/27/2023, currently not DMT. Since the patient's last visit the patient reports overall feeling stable. Patient denies any new or worsening neurologic symptoms. Denies weakness or falls. Vision stable. Has lost 37 pounds since 12/2022, intentionally. Joined [employer]. Feels well with this. Continues to live very active lifestyle. SUBJECTIVE & REVIEW OF SYSTEMS REVIEW OF SYSTEMS Refer to patient-entered data. Mood: PHQ9 responses reviewed and appear below Bladder: Continues Gemtesa, no recent infection Bowel: Tends towards constipation Pain related to today's visit: Denies Fatigue: Minimal Sleep: No problem/well Neuro-Qol Functions (higher = better functioning) 02/27/2023 08/28/2022 Upper Extremity Domain T Score 56.6 57 02/27/2023 08/28/2022 Lower Extremity Domain T Score 62.06 62 02/27/2023 08/28/2022 Cognitive Function Domain T Score 58.22 59 07/14/2019 11/18/2018 Positive Affect Well Being T Score 61.9 71.69 02/27/2023 08/28/2022 Ability To Participate In Social Roles T Score 63 63 02/27/2023 08/28/2022 Satisfaction With Social Roles T Score 62.19 62 Neuro-Qol Symptoms (higher = worse symptoms) 02/27/2023 08/28/2022 Sleep Domain T Score 35.71 33 02/27/2023 08/28/2022 Fatigue Domain T Score 34.68 38 02/27/2023 08/28/2022 Anxiety Domain T Score 35.3 32 02/27/2023 08/28/2022 Depression Domain T Score 33.57 34 02/27/2023 08/28/2022 Stigma Domain T Score 36.56 37 07/14/2019 11/18/2018 Emotional Behavior Dyscontrol T Score 39.37 39.22 *NeuroQoL is a multi-domain patient-reported quality of life questionnaire PHQ-9 Flowsheet Row Office Visit from 08/30/2022 in [facility] Office Visit from 03/01/2022 in [facility] PHQ-9 Score 0 1 *PHQ-9 is a questionnaire for depressive symptoms, with scores 0-4 indicating none, 5-9 mild, 10-14 moderate, 15-19 moderately severe, and 20-27 severe symptoms. PROMIS-10 Flowsheet Row Office Visit from 03/30/2023 in General Surgery Visit ([facility]) Office from 08/10/2022 in Hematology/Oncology Global Physical Health T Score 57.7 57.7 Global Mental Health T Score 67.6 67.6 0-10 Standard Pain Scale 5 5 *PROMIS-10 is a patient-reported quality of life measure, typically reported as physical and mental domains. Here scores are expressed as percentiles, where the lowest possible score is one, the highest possible score is 99, and 50 is average. PAST HISTORY was reviewed and updated PAST MEDICAL HISTORY Diagnosis Date Asthma Blood dyscrasia CML (chronic myelocytic leukemia) (HCC) diagnosed 03/08 HYPERTENSION NOS 11/22/2006 Multiple sclerosis (HCC) diagnosed 04/12 Optic atrophy mild optic atrophy OU Optic neuritis, right diagnosed 11/10 Other and unspecified hyperlipidemia Personal history of myeloid leukemia 05/10/2021 Thyroid nodule PAST SURGICAL HISTORY Procedure Laterality Date BONE MARROW ASP BX 03/08/2003 BX OF BREAST; INCISIONAL Left 04/18/2022 COLONOSCOPY W/BIOPSY SINGLE/MULTIPLE 10/10/2016 EGD TRANSORAL BIOPSY SINGLE/MULTIPLE 10/10/2016 gastritis FNA W/O IMAGING right breast MAMMO STEREOTACTIC CORE BIOPSY LT Left 04/18/2022 PAST SURGICAL HISTORY OF 04/2006 papiloma removed from her left breast by dr. storey from the [facility] in [place] TONSILLECTOMY PRIMARY/SECONDARY <AGE 14 Tonsillectomy TOTAL THYROID LOBECTOMY UNI W/WO ISTHMUSECTOMY 02/21/2011 RIGHT MEDICATIONS and ALLERGIES were reviewed and updated. SOCIAL HISTORY was reviewed and updated: Social History Tobacco Use Smoking status: Never Smokeless tobacco: Never Living situation: Living at home without assistance Employment Status / Disability: Full-time EXAM General Appearance: well appearing, in no acute distress Mental status evaluation during the interview and examination showed normal level of consciousness, orientation, language, memory, praxis, and higher intellectual function Affect: Normal Facial movements: Intact bilaterally Speech: normal RESULTS Monitoring labs: CBC + Diff Component Value Date WBC 7.42 08/23/2023 HB 14.5 08/23/2023 HCT 44.8 08/23/2023 PLT 278 08/23/2023 ABSLYMPH 2.04 08/23/2023 Vitamin D Component Value Date VITD25 66.1 10/24/2021 CMP Component Value Date AST 18 05/17/2023 GLUC 96 05/17/2023 BUN 15 05/17/2023 CREAT 0.75 05/17/2023 NA 136 05/17/2023 K 4.3 05/17/2023 CHLOR 102 05/17/2023 ALT 15 05/17/2023 No results found for: JCVIND, JCVAB No results found for: IGG, IGMNo results found for: [id number] Discrete MRI Results Component Value Date Brain New T2 Lesions None given differences in technique Site 08/30/2022 Brain Enhancing Lesions None 08/30/2022 Cervical Spine New T2 Lesions None 07/02/2020 Cervical Spine New T2 Lesions None 07/02/2020 Cervical spine enhancing lesions None 07/02/2020 Cervical spine enhancing lesions None 07/02/2020 ASSESSMENT Bryanna Ramirez is a 57 year old with with Multiple Sclerosis. Limited exam per virtual visit is stable, subjectively patient is stable, and imaging completed today indicates MS is radiographically stable. Recommend continuing to monitor off disease modifying therapy and repeat MRI brain in 1 year. CML labs assessed earlier this week and are undetectable. Previous treatment with tyrosine kinase inhibitor for this. PLAN - Continue to monitor off DMT - MRI brain w/wo Gd 1 year Follow-up: In 1 year at [facility] I spent a total of 20 minutes on the date of the service which included preparing to see the patient, [id number] patient care, completing clinical documentation, obtaining and/or reviewing separately obtained history, performing a medically appropriate examination, counseling and educating the patient/family/caregiver, ordering medications, tests, or procedures, and communicating results to the patient/family/caregiver. Mary LANDIS APRN.FAMILY SERVICES ASSISTANT documented in this encounter [facility] 08-30-2023 History of Present illness Narrative Radiology Service Progress Note DATE OF SERVICE: August 30, 2023 TIME: 2:03 PM PATIENT IDENTITY VERIFICATION COMPLETED USING TWO (2) STANDARD IDENTIFIERS: Name and Date of confirmed by patient verbally. FALL SCREENING: Has the patient had 2 falls in the last year or 1 fall with injury or currently using an Ambulatory Assistive Device (Walker, Cane, Wheelchair, Crutches, etc.)? No PATIENT GENDER DATA: Female. status: : No status: NO. PATIENT RELEVANT IMPLANT DATA REVIEWED: Yes PATIENT PRESENTS WITH AN IMPLANTABLE OR ATTACHED TAFFY PULLER: No ALLERGIES: Reviewed and unchanged CONTRAST ALLERGY: NO. EXAM: MRI - CONTRAST TYPE: GROUP II PERIPHERAL IV DATA: Ambulatory: A peripheral IV was started in the Right antecubital site with a Angio cath: 22 gauge. RADIOLOGY DEPARTMENT: MR; Exam(s) Completed: Head: Multiple Sclerosis SIGNATURE: RT Laura(R) PATIENT NAME: Bryanna Ramirez DATE: August 30, 2023 TIME: 2:03 PM documented in this encounter [facility] 05-25-2023 History of Present illness Narrative Diagnosis: 1) CML HPI: The patient is a 57 yo female with h/o mild, but slow increase in total WBC and platelet count over the 2 years prior to diagnosis of CML. Was seen here for initial consultation 02/2010. PBS suggestive of CML. FISH for BCR/ABL on peripheral WBCs positive. Baseline bone marrow biopsy 03/16/10; karyotype 18 of 20 metaphases had BCR/ABL. No other cytogenetic abnormalities. Baseline QTc was 443 msec. Diagnosed with MS following several episodes optic neuritis in the fall of 2014. Diagnosed with C diff colitis when seen because diarrhea did not subside around 03/17. CT 03/19--Diffuse pericolonic inflammatory change and wall thickening of the colon. Treated with Flagyl. Previous therapy: 1) Nilotinib started 04/15/2010. Small b/l effusion had been only toxicity of note. Resolved after prn use Lasix. Interim history: Remains off nilotinib. Eating better. Loosing weight. No recurrent symptoms of MS. PMH, medications and allergies as below personally reviewed by me today. Any changes documented in appropriate section. ROS: Constitutional: No recent fever. No night sweats. No change in appetite. HEENT: No recent change in voice or hearing. Resp: No cough, wheeze and hemoptysis. No shortness of breath at rest. CVS: No exertional chest pain, PND, orthopnea and LE edema. GI: No dysphagia or odynophagia. No abdominal pain bloating or distention. : No dysuria or gross hematuria. Derm: No rash. Heme: No unusual bleeding or unexplained bruising. Psych: Normal mood. PHYSICAL EXAM: Vitals: Blood pressure 125/82, pulse 79, temperature 37 C (98.6 F), height 170.3 cm (5' 7.03), weight 84.1 kg (185 lb 8 oz), last menstrual period 05/09/2016, SpO2 99 %. Well-appearing and in no acute distress. EYES: Sclerae are anicteric bilaterally. LYMPHATIC: There is no palpable cervical or supraclavicular adenopathy. RESPIRATORY: Inspiratory breath sounds are of normal intensity in all velásquez. CARDIOVASCULAR: Rhythm is regular. ABDOMEN: The abdomen is nondistended. No splenomegaly. Extremities: No swelling or edema. SKIN: No jaundice. LABS: Component Latest Ref Rng & Units 05/17/2023 WBC 3.70 - 11.00 k/uL 8.71 RBC 3.90 - 5.20 m/uL 4.80 Hemoglobin 11.5 - 15.5 g/dL 14.5 Hematocrit 36.0 - 46.0 % 44.6 MCV 80.0 - 100.0 fL 92.9 MCH 26.0 - 34.0 pg 30.2 MCHC 30.5 - 36.0 g/dL 32.5 RDW-CV 11.5 - 15.0 % 13.0 Platelet Count 150 - 400 k/uL 279 MPV 9.0 - 12.7 fL 8.9 (L) Neut% % 68.3 Abs Neut (ANC) 1.45 - 7.50 k/uL 5.95 Lymph% % 22.3 Abs Lymph 1.00 - 4.00 k/uL 1.94 Antelope% % 7.0 Abs Antelope <0.87 k/uL 0.61 Eosin% % 1.6 Abs Eosin <0.46 k/uL 0.14 Baso% % 0.5 Abs Baso <0.11 k/uL 0.04 Immature Gran % % 0.3 IMMATURE GRANS (ABS) <0.10 k/uL 0.03 Protein, Total 6.3 - 8.0 g/dL 6.7 Albumin 3.9 - 4.9 g/dL 4.6 Calcium 8.5 - 10.2 mg/dL 9.8 Bilirubin, Total 0.2 - 1.3 mg/dL 0.4 Alkaline Phosphatase 34 - 123 U/L 79 AST 13 - 35 U/L 18 ALT 7 - 38 U/L 15 Glucose 74 - 99 mg/dL 96 BUN 7 - 21 mg/dL 15 Creatinine 0.58 - 0.96 mg/dL 0.75 Sodium 136 - 144 mmol/L 136 Potassium 3.7 - 5.1 mmol/L 4.3 Chloride 97 - 105 mmol/L 102 CO2 22 - 30 mmol/L 25 Anion Gap 9 - 18 mmol/L 9 eGFR >=60 mL/min/1.73m 94 BCR/ABL1 p210 Quantitative PCR Laboratory Accession Number: [id number] Result: UNDETECTED MR: N/A %IS: N/A ASSESSMENT/PLAN: (C92.10) CML (chronic myelocytic leukemia) (HCC) (primary encounter diagnosis) Assessment: -The patient is a 56 yo female diagnosed with chronic phase CML in 2009. Complete molecular remission for 9 years--undetectable transcripts as of 09/26/2010. Only exception was May 2011 where there was a weak positive detection but not quantifiable. PCR 05/31/2020 revealed transcripts below level of quantification. Most recent bone marrow aspirate/biopsy and karyotype was 11/08/2011--no morphologic evidence of CML and karyotype 46 XX [20/]. Insurance is only covering one PCR test per year. -Maintaining deep to undetectable transcript level for the last 3 years. -Reviewed labs and current molecular testing. Plan: -CBC/PCR BCR/ABL in 3 months. -CBC/PCR BCR/ABL then OV a week or so later in about 6 months. Portions of this documentation were copied and pasted from previous office visit notes in order to provide a cohesive continuity of the history. The note has been reviewed and edited and updated as necessary. I spent a total of 20 minutes on the date of the service which included preparing to see the patient, [id number] patient care, completing clinical documentation, obtaining and/or reviewing separately obtained history, performing a medically appropriate examination, counseling and educating the patient/family/caregiver, communicating with other HCPs (not separately reported), and communicating results to the patient/family/caregiver. Sp Lang DO documented in this encounter [facility] 04-17-2023 Miscellaneous Notes Called patient to notify the breast pathology results were benign per Dr. Norton. Informed patient a 6 month follow up is recommended. Patient verbalized understanding. documented in this encounter [facility] 04-16-2023 Note HNO ID: [id number] Author: Jael Villarreal Mammo Tech Service: ? Author Type: Local City Driver Type: Patient Education Filed: 04/16/2023 11:22 AM Note Text: Verbal and written instructions given to patient. [facility] 04-16-2023 Instructions Formatting of th is note might be different from the original. Verbal and written instructions given to patient. [facility] 04-16-2023 Miscellaneous Notes Verbal and written instructions given to patient. documented in this encounter [facility] 03-30-2023 Note HNO ID: [id number] Author: Gianna Jensen DO Service: ? Author Type: Physician Type: Progress Notes Filed: 04/04/2023 10:57 AM Note Text: REASON FOR TODAY'S VISIT: Established patient HISTORY of PRESENT ILLNESS: Bryanna Ramirez is a 57 year old white female who initially presented 05/2022 with LEFT breast calcifications superior lateral anterior depth (barbell clip) bx showed papilloma. There are approximately 3 residual calcifications in this area. Given the lack of atypia, patient elected to continue close surveillance of lesion with 6 month mammogram. History of prior benign papilloma excised in 2005 at that time for symptomatic nipple discharge. HISTORY: Patient presented for bilateral diagnostic mammogram on 03/30 for close surveillance of LEFT breast papilloma. Diagnostic mammogram demonstrated stability in the region of prior LEFT breast biopsy however was significant for new architectural distortion with associated calcifications of the RIGHT breast and stereotactic biopsy of the RIGHT breast was advised. She presents to day for her CBE. ROS: HEENT: Denies vision changes or headaches BREAST: Denies palpating any new breast masses, no breast pain, no skin changes, no nipple discharge ABD: Denies any abdominal pain or new changes in bowel habits MUSCULOSKELETAL: Denies any bone, joint or muscle pain IMAGING: BILATERAL DIGITAL DIAGNOSTIC MAMMOGRAM TOMOSYNTHESIS WITH CAD: 03/30/2023 HISTORY: Multiple Diagnoses / Short term follow up left breast-Abnormal Mammogram Also due for bilateral Multiple Diagnoses. RESULT: TECHNIQUE: The study was acquired using full field digital technology and interpreted from soft copy. Digital Breast Tomosynthesis (DBT) images were obtained and used to assist in the interpretation of this examination. Current study was also evaluated with a Computer Aided Detection (CAD). Comparison is made to exams dated: 04/05/2022 mammogram, 01/26/2022 mammogram - [facility], and 06/26/2014 mammogram - [facility]. The tissue of both breasts is heterogeneously dense. This may lower the sensitivity of mammography. There is an asymmetry in the right breast upper inner aspect middle depth. Finding is best noted on tomographic CC slice 41. This is seen in additional views. There also is a cluster of coarse heterogeneous calcifications in the right breast upper inner aspect middle depth. This is seen in additional views. There is a benign titanium marker clip in the left breast superior lateral quadrant anterior depth. This is seen in additional views. This titanium marker clip is at the biopsy site. No other significant masses or calcifications are seen in either breast. IMPRESSION: SUSPICIOUS OF MALIGNANCY The asymmetry in the right breast upper inner aspect middle depth is indeterminate. An ultrasound is recommended. This is best seen on CC view, image 41. The cluster of coarse heterogeneous calcifications in the right breast upper inner aspect middle depth is at a low suspicion for malignancy. A stereotactic biopsy is recommended. The benign titanium marker clip in the left breast superior lateral quadrant anterior depth is benign. 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 The patient elected short interval follow up rather than excision and is followed by Dr. Jensen. LIMITED ULTRASOUND OF RIGHT BREAST: 03/30/2023 RESULT: Comparison is made to exams dated: 04/05/2022 mammogram, 01/26/2022 mammogram - [facility], and 06/26/2014 mammogram - [facility]. Color flow and real-time ultrasound of the right breast were performed. Dutta scale images of the real-time examination were reviewed. Targeted scanning was performed of the upper central and upper inner breast. No focal or suspicious sonographic correlate was seen for the mammographic asymmetry, seen best on CC view. IMPRESSION: NEGATIVE There is no sonographic evidence of malignancy. There is no abnormality seen in the right breast to correspond with the mammography finding in the upper inner quadrant which likely represents fibrocystic change. No sonographic correlate was seen for the mammographic asymmetry, seen best on CC view. On review of prior mammograms, the asymmetry is likely present and obscured in 2013. Therefore six month mammographic follow up is recommended for this finding. Stereotactic biopsy is recommended for coarse heterogeneous calcifications in the central breast, middle depth. EXAMINATION: GEN alert and orientated, well nourished, calm Regional Lymph Nodes There is no concerning supraclavicular, infraclavicular or cervical lymphadenopathy. BREASTS: The patient was examined in the upright and supine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 with her . PAST MEDICAL HISTORY Diagnosis Date Asthma Blood dyscrasia CML (chronic myelocytic leukemia) (HCC) diagnosed 03/08 HYPERTENSION NOS 11/22/2006 Multiple sclerosis (HCC) diagnosed 04/12 Optic atrophy mild optic atrophy OU Optic neuritis, right diagnosed 11/10 Other and unspecified hyperlipidemia Personal history of myeloid leukemia 05/10/2021 Thyroid nodule ALLERGIES ALLERGIES Allergen Reactions Akne-Mycin [Erythro* Other: See Comments QT interval Cats Darvocet A500 [Prop* Adhesive Tape (Susanna* Other: See Comments Blisters Ciprofloxacin Other: See Comments Prolonged QT Copaxone [Glatirame* Rash Current Outpatient Medications Medication Sig Dispense Refill vibegron (GEMTESA) 75 mg tablet Take 75 mg by mouth once daily. iv contrast (will be provided with radiology test) MRI Brain Inject, intravenously, once for 1 dose.No IV access, insert saline lock prior to beginning of sedation, infusion, injection of imaging exam.Discontinue saline lock post exam. If Pt. has a central line or IVAD, may access for administration according to line specific nursing protocol.Once exam is complete flush line and de-access according to line specific nursing protocol in the MR contrast administration guidelines link 1 Each 0 dimethyl fumarate (TECFIDERA) [address] TAKE 1 CAPSULE BY MOUTH 2 TIMES A DAY. STORE IN ORIGINAL CONTAINER AT ROOM TEMPERATURE. (Patient not taking: Reported on 05/01/2022) 180 capsule 1 aspirin, enteric coated (ECOTRIN LOW STRENGTH) 81 mg EC tablet Take 1 tablet by mouth once daily. (Patient not taking: Reported on 05/01/2022) 30 tablet 0 Cholecalciferol, Vitamin D3, 5,000 unit cap Take 1 capsule by mouth once daily. CRANBERRY FRUIT EXTRACT (CRANBERRY EXTRACT ORAL) Take 1 capsule by mouth once daily. LACTOBACILLUS COMBINATION NO.8 (ADULT PROBIOTIC ORAL) Take 1 capsule by mouth once daily. Nature's Bounty CETIRIZINE HCL (ZYRTEC ORAL) Take 1 tablet by mouth once daily. 1/2 tab as needed No current facility-administered medications for this visit. PAST SURGICAL HISTORY Procedure Laterality Date BONE MARROW ASP BX 03/08/2003 BX OF BREAST; INCISIONAL Left 04/18/2022 COLONOSCOPY W/BIOPSY SINGLE/MULTIPLE 10/10/2016 EGD TRANSORAL BIOPSY SINGLE/MULTIPLE 10/10/2016 gastritis FNA W/O IMAGING right breast MAMMO STEREOTACTIC CORE BIOPSY LT Left 04/18/2022 PAST SURGICAL HISTORY OF 04/2006 papiloma removed from her left breast by dr. 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 BREAST PROCEDURE HISTORY: Breast Biopsies: Core Bx: Left Breast in 03/2006, which showed an intraductal papilloma Breast Surgeries: Excisional Biopsy: Left breast in 04/2006, which was Negative for malignancy, showed intraductal papilloma FAMILY HISTORY Problem Relation Age of Onset Osteoporosis Mother Thyroid Mother other (colon) Mother Colon Polyp Hypertension Father Lipids Father Asthma Father other (Tremor) Father other (Tremor) Brother Breast Cancer Maternal Grandmother Colon Cancer Maternal Grandfather Colon Cancer Paternal Grandmother 80 No Ocular Disease Other Multiple Sclerosis No Family History Patient is not of Ashkenazi episcopalian ancestry. 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 RESP: Negative for cough, wheezing or shortness of breath. CARD:reports borderline HTN and hyperlipidemia. Negative for chest pain, palpitations or leg swelling. GI: Negative for abdominal pain, no change in bowel habits, no blood in stool. : Negative for dysuria, frequency or incontinence. HEME: Patient denies known coagulopathy. 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 BREAST: Patient denies breast pain, skin changes, breast masses, and nipple discharge or masses in axilla, as per HPI. MUSCULOSKELETAL: Negative for new joint pain or swelling, no new back or bone pain. SKIN: Negative for lesions, rash, and itching. RADIATION EXPOSURE: There is no history of Radiation Therapy. Radha Jaswinder, PA-C PHYSICAL EXAM Ht 5' 9 (1.75m) Wt 201 lb (91.2kg) LMP 05/09/2016 BMI 29.67 kg/(m^2). GENERAL: Well-nourished, healthy, cooperative, female, in no acute distress, alert and oriented x 3, calm SKIN: Warm, dry, skin color, texture and turgor are normal. HEAD/EYES: Normocephalic, atraumatic and anicteric. NECK: Supple, symmetrical, no thyromegaly. RESP: Chest symmetrical with respirations, non-labored, no wheezing. ABD: Soft, non-distended. No hepatomegaly. No masses. MUSCULOSKELETAL: Upper extremities with normal range of motion, no lymphedema present, patient ambulates independently. REGIONAL LYMPH NODES: There is no concerning cervical, supraclavicular, infraclavicular or axillary lymphadenopathy. BREASTS: The patient was examined in the upright and supine positions. Breasts are symmetric Size D RIGHT Breast - Soft, no dominant masses, nipple everted, no discharge, no skin changes RIGHT Axilla - No palpable axillary lymphadenopathy. LEFT Breast - Soft, no dominant masses, Healing area at the 5 o'clock position from where her biopsy was performed. States she had some bleeding after the biopsy, nipple everted, no discharge, no skin changes LEFT Axilla - No palpable axillary lymphadenopathy. IMAGING Dr. Deidre Aguilar 05/21/2022 Dr eJnsen requests review of outside imaging/second opinion. Screening jay jay study from 01/19/[address] Alberts of [facility] breast imaging department. The patient was recalled for calcifications in the upper outer left breast. Background of scattered and clustered calcifications seen bilaterally consistent with a benign pattern. The diagnostic mammogram of 04/05/22 demonstrates mostly coarse calcifications in the circled area of the upper outer left breast that are not tightly clustered, similar to background calcifications suggesting benignity. Stereotactic biopsy of some of the coarser calcifications in the center of the circled area was performed with hemostatic clip marker placed. The pathology result of intraductal papilloma is concordant with mammographic appearance. RECOMMEND: Surgical consult as planned for the papilloma on biopsy result. No additional imaging needed. UNILATERAL LEFT DIGITAL DIAGNOSTIC MAMMOGRAM WITH CAD: 04/05/2022 HISTORY: Call Back. RESULT: TECHNIQUE: The study was acquired using full field digital technology and interpreted from soft copy. Current study was also evaluated with a Computer Aided Detection (CAD). Comparison is made to exam dated: 01/26/2022 mammogram - [facility]. The tissue of left breast is heterogeneously dense. This may lower the sensitivity of mammography. There are a grouped pleomorphic calcifications in the left breast superior lateral quadrant anterior depth. No other significant masses or calcifications are seen in the breast. IMPRESSION: SUSPICIOUS FINDING - BIOPSY SHOULD BE CONSIDERED The grouped pleomorphic calcifications in the left breast are suspicious of malignancy. A stereotactic biopsy is recommended. PATHOLOGY FINAL DIAGNOSIS A. Left breast calcifications, superior lateral anterior depth, stereotactic core biopsy (2 outside slides, [id number]; 04/18/2022): - Sclerotic intraductal papilloma with stromal microcalcifications. IMPRESSION Bryanna Ramirez is a 56 year old white female with LEFT breast calcifications superior lateral anterior depth (barbell clip) bx shows papilloma. There are approximately 3 residual calcifications in this area. History of prior benign papilloma excised in 2005 at that time for symptomatic nipple discharge. PLAN Had a discussion regarding papillomas and risk of malignancy and option for surgical excision versus close observation. Given the small area of disease and calcifications identified on pathology which were benign, concordant. There is no atypia in the papilloma. This area appears to be well sampled. At this point the patient elects for close observation rather than surgery. Discussed that close observation would be a diagnostic mammogram performed 6 months from her biopsy and then an annual mammogram 6 months after that for bilateral breast. If the area remains stable she could return to normal imaging. If there is any change would recommend surgical excision. She will see me in 6 months for a left diagnostic mammogram and clinical breast exam. At which time we will review the images and determine further recommendations. The importance of monthly self breast exam was stressed. Ms. Ramirez was given my contact information if she has any further questions or concerns. My final recommendation will be communicated back to the referring physician by way of shared medical record and/or written letter via US mail. Gianna Jensen DO Breast Surgeon cc: Miesha Guillen DO (Kristen) [phone] [address] [place] [address] Dr. Lang documented in this encounter [facility] 06-15-2022 Nurse Note Patient was referred by: Miesha Guillen DO, DO Did patient bring outside records to appt today? : Films: Sent in by other facility Pathology: Sent in by other facility Reports: Sent in by other facility Last mammogram on: 01/26/22 bilatearl Results: see report Patient current bra size: 36DD Is the patient active on [employer] Yes Electronically Signed By: Mary Gonzalez LPN In Department: [facility] REVIEW OF PATIENT HISTORY: OB History T0 L0 SAB0 IAB0 Ectopic0 Multiple0 Live Births0 Comment: Menarche at age 15. Premenopausal. FAMILY HISTORY Problem Relation Age of Onset Breast Cancer Maternal Grandmother Hypertension Father Lipids Father Asthma Father other (Tremor) Father Osteoporosis Mother Thyroid Mother other (colon) Mother Colon Polyp Colon Cancer Paternal Grandmother 80 No Ocular Disease Other other (Tremor) Brother Multiple Sclerosis No Family History PAST MEDICAL HISTORY Diagnosis Date Asthma Blood dyscrasia CML (chronic myelocytic leukemia) (HCC) diagnosed 03/08 HYPERTENSION NOS 11/22/2006 Multiple sclerosis (HCC) diagnosed 04/12 Optic atrophy mild optic atrophy OU Optic neuritis, right diagnosed 11/10 Other and unspecified hyperlipidemia Personal history of myeloid leukemia 05/10/2021 Thyroid nodule PAST SURGICAL HISTORY Procedure Laterality Date BONE MARROW ASP BX 03/08/2003 BX OF BREAST; INCISIONAL Left 04/18/2022 COLONOSCOPY W/BIOPSY SINGLE/MULTIPLE 10/10/2016 EGD TRANSORAL BIOPSY SINGLE/MULTIPLE 10/10/2016 gastritis FNA W/O IMAGING right breast PAST SURGICAL HISTORY OF 04/2006 papiloma removed from her left breast by dr. storey from the [facility] in [place] TONSILLECTOMY PRIMARY/SECONDARY <AGE 14 Tonsillectomy TOTAL THYROID LOBECTOMY UNI W/WO ISTHMUSECTOMY 02/21/2011 RIGHT Social History Tobacco Use Smoking status: Never Smokeless tobacco: Never Vaping Use Vaping Use: Never used Substance Use Topics Alcohol use: Yes Comment: occasional Drug use: No documented in this encounter [facility] 05-08-2022 Miscellaneous Notes Spoke with staff from Dr. Chery Jensen's office and secured the first available appointment day of 06/15/22 @ 1:45. PM. Notified patient of appointment and she accepted. .Gianna Yap Dr. Real- please file order. Elina Day LPN Per AVS on 05/[address]Stephanie Narayan Jenesn for scheduling. Thank you! Tiffanie Polanco documented in this encounter [facility] 05-01-2022 History of Present illness Narrative Diagnosis: 1) CML HPI: The patient is a 56 yo female with h/o mild, but slow increase in total WBC and platelet count over the 2 years prior to diagnosis of CML. Was seen here for initial consultation 02/2010. PBS suggestive of CML. FISH for BCR/ABL on peripheral WBCs positive. Baseline bone marrow biopsy 03/16/10; karyotype 18 of 20 metaphases had BCR/ABL. No other cytogenetic abnormalities. Baseline QTc was 443 msec. Diagnosed with MS following several episodes optic neuritis in the fall of 2014. Diagnosed with C diff colitis when seen because diarrhea did not subside around 03/17. CT 03/19--Diffuse pericolonic inflammatory change and wall thickening of the colon. Treated with Flagyl. Previous therapy: 1) Nilotinib started 04/15/2010. Small b/l effusion had been only toxicity of note. Resolved after prn use Lasix. Interim history: Remains off nilotinib. She had a screening mammogram in December 2019. Grouped calcifications were noted in the left breast and additional views are recommended. She underwent diagnostic mammogram on 04/05/2022. She was observed to have grouped pleomorphic calcifications in the left breast that were suspicious of malignancy. She underwent a core needle biopsy that demonstrated intraductal papilloma with calcifications. She was not able to appreciate the lump. She had no nipple discharge. PMH, medications and allergies as below personally reviewed by me today. Any changes documented in appropriate section. ROS: Constitutional: No recent fever. No night sweats. No change in appetite. HEENT: No recent change in voice or hearing. Resp: No cough, wheeze and hemoptysis. No shortness of breath at rest. CVS: No exertional chest pain, PND, orthopnea and LE edema. GI: No dysphagia or odynophagia. No abdominal pain bloating or distention. : No dysuria or gross hematuria. Musculoskeletal: See above. Derm: No rash. Heme: No unusual bleeding or unexplained bruising. Psych: Normal mood. PHYSICAL EXAM: Vitals: Blood pressure 132/94, pulse 71, temperature 36.8 C (98.2 F), height 172 cm (5' 7.72), weight 93.4 kg (206 lb), last menstrual period 05/09/2016, SpO2 98 %. Well-appearing and in no acute distress. EYES: Sclerae are anicteric bilaterally. NECK: Supple. LYMPHATIC: There is no palpable cervical or supraclavicular adenopathy. RESPIRATORY: Inspiratory breath sounds are of normal intensity in all velásquez. CARDIOVASCULAR: Rhythm is regular. BREAST: acted as tube carrier. There is bruising of the lateral aspect of the left breast with probable hematoma deep to that. ABDOMEN: The abdomen is nondistended. Extremities: No swelling or edema. SKIN: No jaundice or rash. No petechiae. NEUROLOGIC: cost manager II-XII are grossly intact. DTRs are symmetric and normal. MS: No significant muscle tenderness. ASSESSMENT/PLAN: (C92.10) CML (chronic myelocytic leukemia) (HCC) (primary encounter diagnosis) Assessment: -The patient is a 56 yo female diagnosed with chronic phase CML in 2009. Complete molecular remission for 9 years--undetectable transcripts as of 09/26/2010. Only exception was May 2011 where there was a weak positive detection but not quantifiable. PCR 05/31/2020 revealed transcripts below level of quantification. Most recent bone marrow aspirate/biopsy and karyotype was 11/08/2011--no morphologic evidence of CML and karyotype 46 XX [20/20]. Insurance is only covering one PCR test per year. -BCR/ABL transcripts detectable on recent analysis but still greater than MR 4.7 and P2 10% I-S less than 0.002. -Discussed that further current literature okay to retest in 3 months which she is comfortable with. Plan: -CBC with PCR testing for BCR/ABL P20 translocation followed by OV in about 3 months. (D24.2) Papilloma of left breast Assessment: -Patient recently underwent a core needle biopsy of what proved to be an intraductal papilloma of the left breast after being evaluated for grouped pleomorphic calcifications on mammography. The lesion was asymptomatic. No evidence of atypia. -She wanted my opinion on excision but I explained to her that this is something I do not see often so I would have to defer to the surgical breast cancer expert. Having said that, our review of the literature suggest that this may be monitored as a reasonable alternative to excision right now. Plan: -We will see if [facility] will send slides to [facility] for second opinion. -Referral to Dr. Jensen. Portions of this documentation were copied and pasted from previous office visit notes in order to provide a cohesive continuity of the history. The note has been reviewed and edited and updated as necessary. During this patient visit I have spent approximately 25 minutes out of 30 in counseling regarding treatment options, medications, test results, literature review and coordinating care. Sp Lang DO documented in this encounter [facility] 04-26-2022 History of Present illness Narrative Bryanna Ramirez 1965 REFERRING PHYSICIAN: Carmella Griffiths MD CHIEF COMPLAINT: Follow Up (Left breast biopsy results) HPI: The patient is a 56 year old female is s/p left stereotactic breast biopsy done on 04/18/2022. Pathology - ..., papilloma..., She denies any problems for the biopsy. PAST MEDICAL HISTORY Diagnosis Date Asthma Blood dyscrasia CML (chronic myelocytic leukemia) (HCC) diagnosed 03/08 HYPERTENSION NOS 11/22/2006 Multiple sclerosis (HCC) diagnosed 04/12 Optic atrophy mild optic atrophy OU Optic neuritis, right diagnosed 11/10 Other and unspecified hyperlipidemia Personal history of myeloid leukemia 05/10/2021 Thyroid nodule PAST SURGICAL HISTORY Procedure Laterality Date BONE MARROW ASP BX 03/08/2003 BX OF BREAST; INCISIONAL Left 04/18/2022 COLONOSCOPY W/BIOPSY SINGLE/MULTIPLE 10/10/2016 EGD TRANSORAL BIOPSY SINGLE/MULTIPLE 10/10/2016 gastritis FNA W/O IMAGING right breast PAST SURGICAL HISTORY OF 04/2006 papiloma removed from her left breast by dr. storey from the [facility] in [place] TONSILLECTOMY PRIMARY/SECONDARY <AGE 14 Tonsillectomy TOTAL THYROID LOBECTOMY UNI W/WO ISTHMUSECTOMY 02/21/2011 RIGHT Current Outpatient Medications Medication Sig vibegron (GEMTESA) 75 mg tablet Take 75 mg by mouth once daily. iv contrast (will be provided with radiology test) MRI Brain Inject, intravenously, once for 1 dose.No IV access, insert saline lock prior to beginning of sedation, infusion, injection of imaging exam.Discontinue saline lock post exam. If Pt. has a central line or IVAD, may access for administration according to line specific nursing protocol.Once exam is complete flush line and de-access according to line specific nursing protocol in the MR contrast administration guidelines link dimethyl fumarate (TECFIDERA) [address] TAKE 1 CAPSULE BY MOUTH 2 TIMES A DAY. STORE IN ORIGINAL CONTAINER AT ROOM TEMPERATURE. aspirin, enteric coated (ECOTRIN LOW STRENGTH) 81 mg EC tablet Take 1 tablet by mouth once daily. Cholecalciferol, Vitamin D3, 5,000 unit cap Take 1 capsule by mouth once daily. CRANBERRY FRUIT EXTRACT (CRANBERRY EXTRACT ORAL) Take 1 capsule by mouth once daily. LACTOBACILLUS COMBINATION NO.8 (ADULT PROBIOTIC ORAL) Take 1 capsule by mouth once daily. Nature's Bounty CETIRIZINE HCL (ZYRTEC ORAL) Take 1 tablet by mouth once daily. 1/2 tab as needed ALLERGIES: Akne-Mycin [Erythromycin], Cats, Darvocet A500 [Propoxyphene N-Acetaminophen], Adhesive Tape (Rosins), Ciprofloxacin, and Copaxone [Glatiramer Acetate] PERSONAL HISTORY: Social History Tobacco Use Smoking status: Never Smokeless tobacco: Never Vaping Use Vaping Use: Never used Substance Use Topics Alcohol use: Yes Comment: occasional Drug use: No FAMILY HISTORY Problem Relation Age of Onset Breast Cancer Maternal Grandmother Hypertension Father Lipids Father Asthma Father other (Tremor) Father Osteoporosis Mother Thyroid Mother other (colon) Mother Colon Polyp Colon Cancer Paternal Grandmother 80 No Ocular Disease Other other (Tremor) Brother Multiple Sclerosis No Family History REVIEW OF SYSTEMS: Denies fevers PHYSICAL EXAMINATION: General: The patient is 56 year old female, well nourished, well hydrated in no acute distress. The patient is oriented to time, place, and person. VITALS: Blood pressure 138/91, pulse 80, temperature 36.3 C (97.4 F), weight 93.5 kg (206 lb 3.2 oz), last menstrual period 05/09/2016, SpO2 99 %. Body mass index is 30.45 kg/m . Head: Normal cephalic, atraumatic Eyes: pupils are equally round, sclera are clear/anicteric Neck is supple with no tracheal deviation Chest/breast: wound is healing well, ecchymoses throughout breast but no palpable hematoma Respiratory: Normal respiratory excursion and pattern. Abdominal exam: benign Extremities: no clubbing, cyanosis or edema. Neuro: non focal Psych: normal mood Assessment IMPRESSION: breast papilloma PLAN: I have discussed the above with the patient. I have explained that intraductal papilloma is considered a high risk lesion. I have offered surveillance mammograms versus wide local excisional biopsy - that is wire localization breast biopsy. I have explained the procedure to the patient. I have counseled the patient as to the risks of the procedure, including but not limited to: infection, bleeding, injury to any blood vessels/nerves, scar tissue, wound infections, complications of anesthesia, etc. - the patient understands. The patient will discuss this with her family and think about it. She will let me know what she decides. I have answered all questions to the patient s satisfaction and the patient has no further questions. I have confirmed and edited as necessary, the PFSH and ROS obtained by others. . Diagnoses: (D36.9) Intraductal papilloma (primary encounter diagnosis) Return to Clinic: The patient is instructed to follow-up with me as above. I spent a total of 21 minutes on the date of the service which included preparing to see the patient with review of any pertinent laboratory studies/radiological imaging/medical records from other medical facilities such as [facility], [id number] patient care, obtaining oral medical history from the patient in this encounter, performing a medically appropriate examination, counseling and educating the patient/family/caregiver, and completing appropriate medical documentation. Carmella Griffiths MD documented in this encounter [facility] 04-12-2022 History of Present illness Narrative HISTORY AND PHYSICAL Bryanna Ramirez 1965 REFERRING PHYSICIAN: Miesha Guillen,* CHIEF COMPLAINT: Consult (Left Breast Calcifications) HPI: The patient is a 56 year old female presents with abnormal left breast mammograms. She denies palpable discrete breast masses, she states that her breasts are lumpy. She denies nipple discharge. She denies breast pain. She states that she had an excisional left breast biopsy in 2005. She notes no breast cancer in her immediate family, her mother's mother had breast cancer. No ovarian cancer noted in family. Her gynecological history is as follows: menarche onset at age 15, G0, BCP use from age [age], menopause age 52 Mammograms 04/05/2022 There are a grouped pleomorphic calcifications in the left breast superior lateral quadrant anterior depth. No other significant masses or calcifications are seen in the breast. IMPRESSION: SUSPICIOUS FINDING - BIOPSY SHOULD BE CONSIDERED The grouped pleomorphic calcifications in the left breast are suspicious of malignancy. A stereotactic biopsy is recommended. Mammogram BI-RADS: 4 Suspicious finding - Biopsy should be considered PAST MEDICAL HISTORY Diagnosis Date Asthma Blood dyscrasia CML (chronic myelocytic leukemia) (HCC) diagnosed 03/08 HYPERTENSION NOS 11/22/2006 Multiple sclerosis (HCC) diagnosed 04/12 Optic atrophy mild optic atrophy OU Optic neuritis, right diagnosed 11/10 Other and unspecified hyperlipidemia Personal history of myeloid leukemia 05/10/2021 Thyroid nodule PAST SURGICAL HISTORY Procedure Laterality Date BONE MARROW ASP BX 03/08/2003 COLONOSCOPY W/BIOPSY SINGLE/MULTIPLE 10/10/2016 EGD TRANSORAL BIOPSY SINGLE/MULTIPLE 10/10/2016 gastritis FNA W/O IMAGING right breast PAST SURGICAL HISTORY OF 04/2006 papiloma removed from her left breast by dr. storey from the [facility] in [place] TONSILLECTOMY PRIMARY/SECONDARY <AGE 14 Tonsillectomy TOTAL THYROID LOBECTOMY UNI W/WO ISTHMUSECTOMY 02/21/2011 RIGHT Current Outpatient Medications Medication Sig vibegron (GEMTESA) 75 mg tablet Take 75 mg by mouth once daily. iv contrast (will be provided with radiology test) MRI Brain Inject, intravenously, once for 1 dose.No IV access, insert saline lock prior to beginning of sedation, infusion, injection of imaging exam.Discontinue saline lock post exam. If Pt. has a central line or IVAD, may access for administration according to line specific nursing protocol.Once exam is complete flush line and de-access according to line specific nursing protocol in the MR contrast administration guidelines link dimethyl fumarate (TECFIDERA) [address] TAKE 1 CAPSULE BY MOUTH 2 TIMES A DAY. STORE IN ORIGINAL CONTAINER AT ROOM TEMPERATURE. aspirin, enteric coated (ECOTRIN LOW STRENGTH) 81 mg EC tablet Take 1 tablet by mouth once daily. Cholecalciferol, Vitamin D3, 5,000 unit cap Take 1 capsule by mouth once daily. CRANBERRY FRUIT EXTRACT (CRANBERRY EXTRACT ORAL) Take 1 capsule by mouth once daily. LACTOBACILLUS COMBINATION NO.8 (ADULT PROBIOTIC ORAL) Take 1 capsule by mouth once daily. Nature's Bounty CETIRIZINE HCL (ZYRTEC ORAL) Take 1 tablet by mouth once daily. 1/2 tab as needed ALLERGIES: Akne-Mycin [Erythromycin], Cats, Darvocet A500 [Propoxyphene N-Acetaminophen], Adhesive Tape (Rosins), Ciprofloxacin, and Copaxone [Glatiramer Acetate] PERSONAL HISTORY: Social History Tobacco Use Smoking status: Never Smokeless tobacco: Never Vaping Use Vaping Use: Never used Substance Use Topics Alcohol use: Yes Comment: occasional Drug use: No FAMILY HISTORY Problem Relation Age of Onset Breast Cancer Maternal Grandmother Hypertension Father Lipids Father Asthma Father other (Tremor) Father Osteoporosis Mother Thyroid Mother other (colon) Mother Colon Polyp Colon Cancer Paternal Grandmother 80 No Ocular Disease Other other (Tremor) Brother Multiple Sclerosis No Family History The review of systems data was entered by the nurse and reviewed by nv Nursing Notes: Kassie Harmtann 04/12/2022 4:09 PM Signed REVIEW OF SYSTEMS: General: The patient denies fatigue, denies weight loss, denies weight gain, denies feeling hot, and denies feelings of cold. Eyes: The patient denies glaucoma, denies eye injury/surgery, wears glasses or contacts. Ear/Nose/Throat: The patient denies allergies, NOTES hayfever, denies ear infections, and denies bloody noses. Cardiovascular: The patient denies chest pain, denies heart disease, denies high blood pressure,denies cardiac stent, denies prior heart attack, denies irregular heart beat, denies high cholesterol, denies poor circulation, denies heart failure, other cardiac issues, denies claudication, denies cold feet, denies peripheral arterial stent. Respiratory: The patient denies tuberculosis, denies pneumonia, denies frequent cough, denies pulmonary embolism, denies shortness of breath, and denies coughing up blood. Gastrointestinal: The patient denies difficulty swallowing, denies acid reflux, denies ulcers, denies vomiting, denies jaundice/hepatitis, denies gallbladder problems, denies black or tarry stools, denies hemorrhoids, denies bleeding from rectum, denies diverticulitis, denies constipation, denies diarrhea, denies loss of stool control, and denies hernias. Kidney/Bladder: The patient denies kidney stones, denies urine infections, and denies bloody urine. Skin: The patient denies a history of skin cancer, denies bleeding/changing moles, and denies a history of skin rash. Neurologic: The patient denies a history of epilepsy/convulsions, denies headaches, denies head/spinal injuries, and denies stroke/TIA. Psychiatric: The patient denies psychiatric medications, denies depression, and denies voices, denies substance abuse. Endocrine: The patient denies thyroid disorders, denies diabetes, and denies hormonal problems. Hematologic: The patient denies a history of bruising, denies bleeding, and denies anemia, denies blood clots. Infections: The patient denies a history of measles and mumps, denies rheumatic fever, and denies sexually transmitted diseases. Musculoskeletal: The patient denies back pain/injury, denies back problems, denies sciatica, denies knee/foot trouble, denies arthritis, or denies gout. When was patient's last Mammogram screening? 04/05/2022 Last Colonoscopy: 09/2016 Kassie Hartmann PHYSICAL EXAMINATION: General: The patient is 56 year old female, well nourished, well hydrated in no acute distress. The patient is oriented to time, place, and person. VITALS: Blood pressure 154/84, pulse 75, temperature 36.5 C (97.7 F), height 175.3 cm (5' 9), weight 93.4 kg (206 lb), last menstrual period 05/09/2016, SpO2 96 %. Body mass index is 30.42 kg/m . Head - Normocephalic. EOM intact with sclera clear and no icterus noted. Wearing glasses. Neck - supple with no jugular venous distention noted. Trachea is midline. No thyroid enlargement or thyroid nodules detected. No masses noted. Chest/breast - no asymmetry of breasts noted, no suspicious skin lesions noted - well healed medial circumareolar incision, no nipple discharge and both nipples everted, no breast masses noted Lungs - clear to auscultation. Normal breath sounds. No rales/rhonchi/wheezing noted. No labored breathing noted, such as retractions. No cough heard. Heart - normal S1 and S2 auscultated. No rubs/clicks/murmurs noted. Regular rate. Abdomen - soft and benign. . Extremities - no calf tenderness noted. No pitting edema noted. Skin - normal skin integrity. Lymph - no cervical adenopathy detected, no supraclavicular adenopathy detected, no axillary adenopathy detected Neurological - gait normal, no focal deficits noted Psych - calm and appropriate RADIOLOGIC STUDIES: As Noted Assessment IMPRESSION: abnormal left breast mammograms PLAN: I have discussed the above with the patient and her who is present with her. I have reviewed the abnormal breast radiographs with them. I have recommended left breast stereotactic biopsy. I have explained the procedure to the patient. I have counseled the patient as to the risks of the procedure, including but not limited to: infection, bleeding, injury to any blood vessels/nerves, scar tissue, wound infections, complications of anesthesia, etc. - the patient understands. The patient wishes to proceed. I have answered all questions to the patient s satisfaction and the patient has no further questions. I have confirmed and edited as necessary, the PFSH and ROS obtained by others. Consultation requested by Dr. Miesha Guillen for an opinion regarding patient's abnormal left breast mammograms. My final recommendations will be communicated back to the requesting physician by way of shared Medical record or letter to requesting physician via [place] mail. . Diagnoses: (R92.1) Calcification of left breast on mammography (primary encounter diagnosis) Return to Clinic: The patient will be scheduled for left breast stereotactic biopsy at [facility] as per her request. Medical Decision Making: Problems: Moderate: New problem with uncertain prognosis Data: Unique test result(s) reviewed: 1 Risk: Low: Low risk from testing/treatment Medical Decision Making Level: 3 - Low Carmella Griffiths MD documented in this encounter [facility] 04-12-2022 Nurse Note REVIEW OF SYSTEMS: General: The patient denies fatigue, denies weight loss, denies weight gain, denies feeling hot, and denies feelings of cold. Eyes: The patient denies glaucoma, denies eye injury/surgery, wears glasses or contacts. Ear/Nose/Throat: The patient denies allergies, NOTES hayfever, denies ear infections, and denies bloody noses. Cardiovascular: The patient denies chest pain, denies heart disease, denies high blood pressure,denies cardiac stent, denies prior heart attack, denies irregular heart beat, denies high cholesterol, denies poor circulation, denies heart failure, other cardiac issues, denies claudication, denies cold feet, denies peripheral arterial stent. Respiratory: The patient denies tuberculosis, denies pneumonia, denies frequent cough, denies pulmonary embolism, denies shortness of breath, and denies coughing up blood. Gastrointestinal: The patient denies difficulty swallowing, denies acid reflux, denies ulcers, denies vomiting, denies jaundice/hepatitis, denies gallbladder problems, denies black or tarry stools, denies hemorrhoids, denies bleeding from rectum, denies diverticulitis, denies constipation, denies diarrhea, denies loss of stool control, and denies hernias. Kidney/Bladder: The patient denies kidney stones, denies urine infections, and denies bloody urine. Skin: The patient denies a history of skin cancer, denies bleeding/changing moles, and denies a history of skin rash. Neurologic: The patient denies a history of epilepsy/convulsions, denies headaches, denies head/spinal injuries, and denies stroke/TIA. Psychiatric: The patient denies psychiatric medications, denies depression, and denies voices, denies substance abuse. Endocrine: The patient denies thyroid disorders, denies diabetes, and denies hormonal problems. Hematologic: The patient denies a history of bruising, denies bleeding, and denies anemia, denies blood clots. Infections: The patient denies a history of measles and mumps, denies rheumatic fever, and denies sexually transmitted diseases. Musculoskeletal: The patient denies back pain/injury, denies back problems, denies sciatica, denies knee/foot trouble, denies arthritis, or denies gout. When was patient's last Mammogram screening? 04/05/2022 Last Colonoscopy: 09/2016 Kassie Hartmann documented in this encounter [facility] 04-05-2022 History of Present illness Narrative Radiology Service Progress Note PATIENT NAME: Bryanna Ramirez DATE OF SERVICE: April 05, 2022 TIME: 3:32 PM PATIENT IDENTITY VERIFICATION COMPLETED USING TWO (2) IDENTIFIERS: Name and Date of confirmed by patient verbally. FALL SCREENING: Has the patient had 2 falls in the last year or 1 fall with injury or currently using an Ambulatory Assistive Device (Walker, Cane, Wheelchair, Crutches, etc.)? No PATIENT GENDER DATA: Female. status: : No status: NO. PATIENT RELEVANT IMPLANT DATA REVIEWED: Not Applicable RADIOLOGY DEPARTMENT: Mammography PERIPHERAL IV DATA: Not applicable SIGNED BY: RT Tyson(Eva) April 05, 2022 3:32 PM documented in this encounter [facility] 03-03-2022 History of Present illness Narrative Radiology Service Progress Note PATIENT NAME: Bryanna Ramirez DATE OF SERVICE: March 03, 2022 TIME: 11:26 AM PATIENT IDENTITY VERIFICATION COMPLETED USING TWO (2) IDENTIFIERS: Name and Date of confirmed by patient verbally. FALL SCREENING: Has the patient had 2 falls in the last year or 1 fall with injury or currently using an Ambulatory Assistive Device (Walker, Cane, Wheelchair, Crutches, etc.)? No PATIENT GENDER DATA: Female. status: : No status: NO. PATIENT RELEVANT IMPLANT DATA REVIEWED: Not Applicable RADIOLOGY DEPARTMENT: Mammography PERIPHERAL IV DATA: Not applicable SIGNED BY: RT Tyson(R) March 03, 2022 11:26 AM documented in this encounter [facility] 03-01-2022 Instructions Mary Landis APRN.FAMILY SERVICES ASSISTANT - 03/01/2022 10:34 AM EDT PLAN - Stop Tecfidera - MRI brain w/wo Gd 6 months documented in this encounter [facility] 03-01-2022 History of Present illness Narrative Images from the original note were not included. [facility] FOLLOWUP/ESTABLISHED PATIENT VISIT Principal Neurologic Diagnosis: Multiple Sclerosis HISTORY OF ILLNESS Onset: 07/2013 (?) Diagnosis of MS: 03/2014 (new GdE MRI lesion) Disease course at onset: relapsing-remitting Current disease course: relapsing-remitting Previous disease therapies: - Copaxone started 04/2014-05/2014 (severe injection site reactions) - IVMP 11/2014 for relapse Current disease therapy: Tecfidera started 07/27/2014, held 09/06/2014 - 09/11/2014 b/o diarrhea. Early 01/2022 reduced to capsule every day Most recent MRI brain: 02/28/2022 Most recent MRI cervical spine: 04/26/2016 Most recent MRI thoracic spine: 04/26/2016 CSF: not done NMO AQP-4: 12/04/2014 (-) JCV serology: 10/16/2014 0.12 (-) VZV Ig10/16/2014 (+) CHIEF COMPLAINT: Follow-up on MS disease modifying therapy INTERVAL HISTORY Usual treating team: [place] The patient is accompanied by spouse. The patient was last seen 09/23/2021, currently taking Tecfidera. Since the patient's last visit the patient reports overall feeling stable. Issues with current MS therapy: Tolerating medication without occasional flushing which is much reduced when she takes ASA daily. Forgot to take ASA last week and flushing was significant. She would like to discuss cessation of DMT. Following tx for CML, she has now been off nilotinib for 19 months, in remission. We had previously discussed nilotinib may have induced demyelination and, if stable, we would consider trial off DMT once nilotinib d/c assuming stability otherwise. Early January, fractured right ankle in 2 places when hiking. Wearing walking boot now, follow up XR 03/08/2022. Surgery has not been indicated. 19 month of nilotinib and CML now in remission. Maintenance plan is now q3 month follow up with labwork. Had 3 UTIs in Jun and Jul of this past year but none since then. Does follow urology, baseline is urgency and leaking. Urinary retention is worse when constipated. SUBJECTIVE & REVIEW OF SYSTEMS REVIEW OF SYSTEMS Refer to patient-entered data. Mood: PHQ9 responses reviewed and appear below Bladder: See HPI Bowel: Eating more dairy recently but constipation well managed if she maintains fiber and water intake. Pain related to today's visit:reviewed on nursing intake documentation See HPI Sleep: Worse recently due to right ankle discomfort and achiness. Sleeping for shorter segments. Memory/Concentration: Normal Neuro-Qol Functions (higher = better functioning) 02/28/2022 09/22/2021 Upper Extremity Domain T Score 57 57 02/28/2022 09/22/2021 Lower Extremity Domain T Score 38 55 02/28/2022 09/22/2021 Cognitive Function Domain T Score 53 56 07/14/2019 11/18/2018 Positive Affect Well Being T Score 61.9 71.69 02/28/2022 09/22/2021 Ability To Participate In Social Roles T Score 63 63 02/28/2022 09/22/2021 Satisfaction With Social Roles T Score 48 62 Neuro-Qol Symptoms (higher = worse symptoms) 02/28/2022 09/22/2021 Sleep Domain T Score 39 32 02/28/2022 09/22/2021 Fatigue Domain T Score 37 40 02/28/2022 09/22/2021 Anxiety Domain T Score 36 32 02/28/2022 09/22/2021 Depression Domain T Score 34 38 02/28/2022 09/22/2021 Stigma Domain T Score 37 44 07/14/2019 11/18/2018 Emotional Behavior Dyscontrol T Score 39.37 39.22 *NeuroQoL is a multi-domain patient-reported quality of life questionnaire PHQ-9 Office Visit from 03/01/2022 in [facility] from 09/23/2021 in [facility] PHQ-9 Score 1 0 *PHQ-9 is a questionnaire for depressive symptoms, with scores 0-4 indicating none, 5-9 mild, 10-14 moderate, 15-19 moderately severe, and 20-27 severe symptoms. PROMIS-10 Office Visit from 03/01/2022 in [facility] from 09/23/2021 in [facility] Global Physical Health T Score 61.9 54.1 Global Mental Health T Score 67.6 62.5 0-10 Standard Pain Scale 5 4 *PROMIS-10 is a patient-reported quality of life measure, typically reported as physical and mental domains. Here scores are expressed as percentiles, where the lowest possible score is one, the highest possible score is 99, and 50 is average. PAST HISTORY was reviewed and updated PAST MEDICAL HISTORY Diagnosis Date Asthma Blood dyscrasia CML (chronic myelocytic leukemia) (HCC) diagnosed 03/08 HYPERTENSION NOS 11/22/2006 Multiple sclerosis (HCC) diagnosed 04/12 Optic atrophy mild optic atrophy OU Optic neuritis, right diagnosed 11/10 Other and unspecified hyperlipidemia Personal history of myeloid leukemia 05/10/2021 Thyroid nodule PAST SURGICAL HISTORY Procedure Laterality Date BONE MARROW ASP BX 03/08/2003 COLONOSCOPY W/BIOPSY SINGLE/MULTIPLE 10/10/2016 EGD TRANSORAL BIOPSY SINGLE/MULTIPLE 10/10/2016 gastritis FNA W/O IMAGING right breast PAST SURGICAL HISTORY OF 04/2006 papiloma removed from her left breast by dr. storey from the [facility] in [place] TONSILLECTOMY PRIMARY/SECONDARY <AGE 14 Tonsillectomy TOTAL THYROID LOBECTOMY UNI W/WO ISTHMUSECTOMY 02/21/2011 RIGHT MEDICATIONS and ALLERGIES were reviewed and updated. SOCIAL HISTORY was reviewed and updated: Social History Tobacco Use Smoking status: Never Smoker Smokeless tobacco: Never Used Living situation: Living at home without assistance Employment Status / Disability: Full-time [employer] BP 139/72 Pulse 71 Ht 172.1 cm (5' 7.75) Wt 92.1 kg (203 lb) LMP 05/09/2016 (Exact Date) BMI 31.09 kg/m Multiple Sclerosis Performance Test Office Visit from 03/01/2022 in [facility] Office Visit from 01/03/2021 in [facility] Processing Speed Total Number Correct 51 45 Low-contrast letter acuity test-2.5 percent opacity 32 23 Low-contrast letter acuity test-100 percent opacity 60 59 Dominant hand MDT Left Hand Time 23.39 23.05 MDT Right Hand Time 20.49 19.86 Walking Speed Test (25 feet) 4.86 EXAM General Appearance: Well appearing, alert, in no acute distress, well-hydrated, well nourished. Mental status evaluation during the interview and examination showed normal level of consciousness, orientation, language, memory, praxis, and higher intellectual function Affect: Normal Visual acuity: OD 20/20 OS 20/20-1 Correction: With glasses Extraocular movements: full, without NATASHA Facial movements: Intact bilaterally Speech: normal Shoulder shru/5 b/l Muscle tone: Right arm spasticity: None Right leg spasticity: None Left arm spasticity: None Left leg spasticity: None Muscle strength (#/5): Right Left Upper Extremity: Deltoids 5 5 Biceps 5 5 Triceps 5 5 Paediatrician 5 5 Dorsal interossei 5 5 Lower extremity: Iliopsoas 5 5 Quadriceps NT 5 Hamstrings NT 5 Tibialis anterior NT 5 Gastrocnemius NT [address] so complete exam not done. Coordination: Upper extremity dexterity and rapid movements: Normal bilaterally Finger-nose: no dysmetria; coordination intact Heel-jerome: NT Standing balance: NT Standard gait: not walking, using rolling device on right to non-weight bear to right ankle. Assistive device: rolling knee walker RESULTS Monitoring labs: CBC + Diff Component Value Date WBC 5.36 01/26/2022 HB 14.2 01/26/2022 HCT 44.0 01/26/2022 PLT 236 01/26/2022 ABSLYMPH 1.53 01/26/2022 Vitamin D Component Value Date VITD25 66.1 10/24/2021 CMP Component Value Date AST 18 01/26/2022 GLUC 96 01/26/2022 BUN 16 01/26/2022 CREAT 0.65 01/26/2022 NA 138 01/26/2022 K 4.4 01/26/2022 CHLOR 103 01/26/2022 ALT 19 01/26/2022 No results found for: JCVIND, JCVAB No results found for: IGG, IGMNo results found for: [id number] Discrete MRI Results Component Value Date Brain New T2 Lesions None Site 02/28/2022 Brain Enhancing Lesions None 02/28/2022 Cervical Spine New T2 Lesions None 07/02/2020 Cervical Spine New T2 Lesions None 07/02/2020 Cervical spine enhancing lesions None 07/02/2020 Cervical spine enhancing lesions None 07/02/2020 Covid Immunization Dates Overdue - COVID-19 VACCINE (1) Overdue - never done No completion, postpone, frequency change, or communication history exists for this topic. ASSESSMENT Bryanna Ramirez is a 56 year old woman with Multiple Sclerosis. Dx with CML 02/2010, started nilotinib soon after dx. 07/2013, new onset blurred vision. Dx with MS 03/2014. She has been stable on Tecfidera since 2013. Imaging has been stable. 2019 MRI report indicated new lesion though on review, lesion not new, just more conspicuous. Repeat repeat imaging 12/2020 and 02/2022 stable. At 06/2020 office visit, there was some discussion of nilotinib potentially associated with onset of demyelination and we discussed, once off nilotinib, possibly monitoring off DMT. Patient is in remission for CML and has been followed off nilotinib for 19 months. She tolerates DMF relatively well though with flushing on occasion. She would like to trial off DMT. We reviewed her age is usually younger than we would discuss cessation but her circumstances are unique given her tx hx with a tyrosine kinase inhibitor. Will review with Dr. Gardner and addend as needed but we will stop Tecfidera now and repeat imaging 6 months. Advised patient to be vigilant about new sx sx and to contact [facility] quickly if needed. MRI of the brain and/or spinal cord is being ordered to evaluate for efficacy of multiple sclerosis (MS) disease modifying therapy. Disease activity in MS is often not immediately detectable on history or examination, but is sensitively identified on MRI. If identified, new or active MS lesions on MRI may represent suboptimal response to MS therapy, and would change medical management. PLAN - Stop Tecfidera - MRI brain w/wo Gd 6 months Patient Health Education Discussed at Visit: Risks and Common side effects of MS medications Follow-up: In 6 months at [facility] I spent a total of 45 minutes on the date of the service which included preparing to see the patient, [id number] patient care, completing clinical documentation, obtaining and/or reviewing separately obtained history, performing a medically appropriate examination, counseling and educating the patient/family/caregiver, ordering medications, tests, or procedures and communicating results to the patient/family/caregiver. The patient was dicussed with Dr. Gardner. Mary LANDIS APRN.CNP documented in this encounter [facility] 02-28-2022 History of Present illness Narrative Radiology Service Progress Note DATE OF SERVICE: February 28, 2022 TIME: 9:07 AM PATIENT IDENTITY VERIFICATION COMPLETED USING TWO (2) STANDARD IDENTIFIERS: Name and Date of confirmed by patient verbally. FALL SCREENING: Has the patient had 2 falls in the last year or 1 fall with injury or currently using an Ambulatory Assistive Device (Walker, Cane, Wheelchair, Crutches, etc.)? No PATIENT GENDER DATA: Female. status: : No status: NO. PATIENT RELEVANT IMPLANT DATA REVIEWED: Yes ALLERGIES: Reviewed and unchanged CONTRAST ALLERGY: NO. EXAM: MRI - CONTRAST TYPE: GROUP II PERIPHERAL IV DATA: Ambulatory: A peripheral IV was started in the Right antecubital site with a Angio cath: 22 gauge. RADIOLOGY DEPARTMENT: MR; Exam(s) Completed: Head: Multiple Sclerosis SIGNATURE: RT Laura(R) PATIENT NAME: Bryanna Ramirez DATE: February 28, 2022 TIME: 9:07 AM documented in this encounter [facility] 12-20-2021 Miscellaneous Notes The following approved medication requests have been transmitted electronically. Signed Prescriptions Disp Refills dimethyl fumarate (TECFIDERA) [address] 180 capsule 1 Sig: TAKE 1 CAPSULE BY MOUTH 2 TIMES A DAY. STORE IN ORIGINAL CONTAINER AT ROOM TEMPERATURE. LYUDMILA: No Authorizing Provider: LORRAINE ESCOBAR APRN.DARRYL Source : electronic from pharmacy requesting refill. Delivery : e-script Pending Prescriptions Disp Refills DIMETHYL FUMARATE 240 MG CAPSULE,DELAYED RELEASE 180 capsule 2 Sig: TAKE 1 CAPSULE BY MOUTH 2 TIMES A DAY. STORE IN ORIGINAL CONTAINER AT ROOM TEMPERATURE. LYUDMILA: No DX : Patient last seen : 09/23/2021 Next Appointment : 02/28/22 Krystian Jimenez documented in this encounter [facility] 10-31-2021 History of Present illness Narrative Diagnosis: 1) CML HPI: The patient is a 55 yo female with h/o mild, but slow increase in total WBC and platelet count over the 2 years prior to diagnosis of CML. Was seen here for initial consultation 02/2010. PBS suggestive of CML. FISH for BCR/ABL on peripheral WBCs positive. Baseline bone marrow biopsy 03/16/10; karyotype 18 of 20 metaphases had BCR/ABL. No other cytogenetic abnormalities. Baseline QTc was 443 msec. Diagnosed with MS following several episodes optic neuritis in the fall of 2014. Diagnosed with C diff colitis when seen because diarrhea did not subside around 03/17. CT 03/19--Diffuse pericolonic inflammatory change and wall thickening of the colon. Treated with Flagyl. Previous therapy: 1) Nilotinib started 04/15/2010. Small b/l effusion had been only toxicity of note. Resolved after prn use Lasix. Interim history: She offers no complaints today. She had COVID last May. During that time she received a monoclonal antibody infusion and because of her history of asthma, her PCP gave her a 6-day burst of prednisone 60 mg daily. Following that all her musculoskeletal pain from TKI withdrawal completely resolved. PMH, medications and allergies as below personally reviewed by me today. Any changes documented in appropriate section. ROS: Constitutional: No recent fever. No night sweats. No change in appetite. HEENT: No recent change in voice or hearing. Resp: No cough, wheeze and hemoptysis. No shortness of breath at rest. CVS: No exertional chest pain, PND, orthopnea and LE edema. GI: No dysphagia or odynophagia. No abdominal pain bloating or distention. : No dysuria or gross hematuria. Musculoskeletal: See above. Derm: No rash. Heme: No unusual bleeding or unexplained bruising. Psych: Normal mood. PHYSICAL EXAM: Vitals: Blood pressure 159/79, pulse 67, temperature 36.3 C (97.3 F), temperature source Temporal, height 172.1 cm (5' 7.75), weight 92.5 kg (204 lb), last menstrual period 05/09/2016. Well-appearing and in no acute distress. EYES: Sclerae are anicteric bilaterally. NECK: Supple. LYMPHATIC: There is no palpable cervical or supraclavicular adenopathy. RESPIRATORY: Inspiratory breath sounds are of normal intensity in all velásquez. CARDIOVASCULAR: Rhythm is regular. ABDOMEN: The abdomen is nondistended. Extremities: No swelling or edema. SKIN: No jaundice or rash. No petechiae. NEUROLOGIC: cost manager II-XII are grossly intact. DTRs are symmetric and normal. MS: No significant muscle tenderness. ASSESSMENT/PLAN: (C92.10) CML (chronic myelocytic leukemia) (HCC) (primary encounter diagnosis) Assessment: -The patient is a 55 yo female diagnosed with chronic phase CML in 2009. Complete molecular remission for 9 years--undetectable transcripts as of 09/26/2010. Only exception was May 2011 where there was a weak positive detection but not quantifiable. PCR 05/31/2020 revealed transcripts below level of quantification. Most recent bone marrow aspirate/biopsy and karyotype was 11/08/2011--no morphologic evidence of CML and karyotype 46 XX []. Insurance is only covering one PCR test per year. -BCR/ABL transcripts remain undetectable. -We reviewed some of the literature indicating treatment free duration off TKI therapy. Plan: -Continued every 3 month monitoring per her request. Portions of this documentation were copied and pasted from previous office visit notes in order to provide a cohesive continuity of the history. The note has been reviewed and edited and updated as necessary. Sp Lang DO documented in this encounter [facility] 10-19-2016 History of Past i llness Narrative Problem Noted Date Resolved Date Acute superficial gastritis with hemorrhage 09/2806/05/2017 Iron deficiency anemia due to chronic blood loss 04/21/2016 10/30/2016 Unspecified essential hypertension 11/22/2006 01/19/2014 NIPPLE DISCHARGE 04/10/2006 07/08/2013 documented as of this encounter (statuses as of 10/21/2021) [facility] History of Past illness Narrative* Problem Noted Date Resolved Date Acute superficial gastritis with hemorrhage 09/2806/05/2017 Iron deficiency anemia due to chronic blood loss 04/21/2016 10/30/2016 Unspecified essential hypertension 11/22/2006 01/19/2014 NIPPLE DISCHARGE 04/10/2006 07/08/2013 documented as of this encounter (statuses as of 10/31/2021) [facility] History of Past illness Narrative* Problem Noted Date Resolved Date Acute superficial gastritis with hemorrhage 09/2806/05/2017 Iron deficiency anemia due to chronic blood loss 04/21/2016 10/30/2016 Unspecified essential hypertension 11/22/2006 01/19/2014 NIPPLE DISCHARGE 04/10/2006 07/08/2013 documented as of this encounter (statuses as of 12/20/2021) [facility] History of Past illness Narrative* Problem Noted Date Resolved Date Acute superficial gastritis with hemorrhage 09/2806/05/2017 Iron deficiency anemia due to chronic blood loss 04/21/2016 10/30/2016 Unspecified essential hypertension 11/22/2006 01/19/2014 NIPPLE DISCHARGE 04/10/2006 07/08/2013 documented as of this encounter (statuses as of 01/20/2022) [facility] History of Past illness Narrative* Problem Noted Date Resolved Date Acute superficial gastritis with hemorrhage 09/2806/05/2017 Iron deficiency anemia due to chronic blood loss 04/21/2016 10/30/2016 Unspecified essential hypertension 11/22/2006 01/19/2014 NIPPLE DISCHARGE 04/10/2006 07/08/2013 documented as of this encounter (statuses as of 03/01/2022) [address]-2017 History of Past illness Narrative* Problem Noted Date Resolved Date Acute superficial gastritis with hemorrhage 09/2806/05/2017 Iron deficiency anemia due to chronic blood loss 04/21/2016 10/30/2016 Unspecified essential hypertension 11/22/2006 01/19/2014 NIPPLE DISCHARGE 04/10/2006 07/08/2013 documented as of this encounter (statuses as of 03/02/2022) [address]23-2017 History of Past illness Narrative* Problem Noted Date Resolved Date Acute superficial gastritis with hemorrhage 09/2806/05/2017 Iron deficiency anemia due to chronic blood loss 04/21/2016 10/30/2016 Unspecified essential hypertension 11/22/2006 01/19/2014 NIPPLE DISCHARGE 04/10/2006 07/08/2013 documented as of this encounter (statuses as of 04/06/2022) [address]-2017 History of Past illness Narrative* Problem Noted Date Resolved Date Acute superficial gastritis with hemorrhage 09/2806/05/2017 Iron deficiency anemia due to chronic blood loss 04/21/2016 10/30/2016 Unspecified essential hypertension 11/22/2006 01/19/2014 NIPPLE DISCHARGE 04/10/2006 07/08/2013 documented as of this encounter (statuses as of 04/15/2022) [address]-2017 History of Past illness Narrative* Problem Noted Date Resolved Date Acute superficial gastritis with hemorrhage 09/2806/05/2017 Iron deficiency anemia due to chronic blood loss 04/21/2016 10/30/2016 Unspecified essential hypertension 11/22/2006 01/19/2014 NIPPLE DISCHARGE 04/10/2006 07/08/2013 documented as of this encounter (statuses as of 04/28/2022) [address]-2017 History of Past illness Narrative* Problem Noted Date Resolved Date Acute superficial gastritis with hemorrhage 09/2806/05/2017 Iron deficiency anemia due to chronic blood loss 04/21/2016 10/30/2016 Unspecified essential hypertension 11/22/2006 01/19/2014 NIPPLE DISCHARGE 04/10/2006 07/08/2013 documented as of this encounter (statuses as of 05/02/2022) [address]-2017 History of Past illness Narrative* Problem Noted Date Resolved Date Acute superficial gastritis with hemorrhage 09/2806/05/2017 Iron deficiency anemia due to chronic blood loss 04/21/2016 10/30/2016 Unspecified essential hypertension 11/22/2006 01/19/2014 NIPPLE DISCHARGE 04/10/2006 07/08/2013 documented as of this encounter (statuses as of 05/08/2022) [address]-2017 History of Past illness Narrative* Problem Noted Date Resolved Date Acute superficial gastritis with hemorrhage 09/2806/05/2017 Iron deficiency anemia due to chronic blood loss 04/21/2016 10/30/2016 Unspecified essential hypertension 11/22/2006 01/19/2014 NIPPLE DISCHARGE 04/10/2006 07/08/2013 documented as of this encounter (statuses as of 05/08/2022) [address]-2017 History of Past illness Narrative* Problem Noted Date Resolved Date Acute superficial gastritis with hemorrhage 09/2806/05/2017 Iron deficiency anemia due to chronic blood loss 04/21/2016 10/30/2016 Unspecified essential hypertension 11/22/2006 01/19/2014 NIPPLE DISCHARGE 04/10/2006 07/08/2013 documented as of this encounter (statuses as of 06/15/2022) [address]-2017 History of Past illness Narrative* Problem Noted Date Resolved Date Acute superficial gastritis with hemorrhage 09/2806/05/2017 Iron deficiency anemia due to chronic blood loss 04/21/2016 10/30/2016 Unspecified essential hypertension 11/22/2006 01/19/2014 NIPPLE DISCHARGE 04/10/2006 07/08/2013 documented as of this encounter (statuses as of 08/08/2022) [address]-2017 History of Past illness Narrative* Problem Noted Date Resolved Date Acute superficial gastritis with hemorrhage 09/2806/05/2017 Iron deficiency anemia due to chronic blood loss 04/21/2016 10/30/2016 Unspecified essential hypertension 11/22/2006 01/19/2014 NIPPLE DISCHARGE 04/10/2006 07/08/2013 documented as of this encounter (statuses as of 08/10/2022) [address]-2017 History of Past illness Narrative* Problem Noted Date Resolved Date Acute superficial gastritis with hemorrhage 09/2806/05/2017 Iron deficiency anemia due to chronic blood loss 04/21/2016 10/30/2016 Unspecified essential hypertension 11/22/2006 01/19/2014 NIPPLE DISCHARGE 04/10/2006 07/08/2013 documented as of this encounter (statuses as of 08/30/2022) [facility] History of Past illness Narrative* Problem Noted Date Resolved Date Acute superficial gastritis with hemorrhage 09/2806/05/2017 Iron deficiency anemia due to chronic blood loss 04/21/2016 10/30/2016 Unspecified essential hypertension 11/22/2006 01/19/2014 NIPPLE DISCHARGE 04/10/2006 07/08/2013 documented as of this encounter (statuses as of 08/31/2022) [facility] History of Past illness Narrative* Problem Noted Date Resolved Date Acute superficial gastritis with hemorrhage 09/2806/05/2017 Iron deficiency anemia due to chronic blood loss 04/21/2016 10/30/2016 Unspecified essential hypertension 11/22/2006 01/19/2014 NIPPLE DISCHARGE 04/10/2006 07/08/2013 documented as of this encounter (statuses as of 11/01/2022) [facility] History of Past illness Narrative* Problem Noted Date Resolved Date Acute superficial gastritis with hemorrhage 09/2806/05/2017 Iron deficiency anemia due to chronic blood loss 04/21/2016 10/30/2016 Unspecified essential hypertension 11/22/2006 01/19/2014 NIPPLE DISCHARGE 04/10/2006 07/08/2013 documented as of this encounter (statuses as of 11/08/2022) [place] [id number] History of Past illness Narrative* Problem Noted Date Resolved Date Acute superficial gastritis with hemorrhage 09/2806/05/2017 Iron deficiency anemia due to chronic blood loss 04/21/2016 10/30/2016 Unspecified essential hypertension 11/22/2006 01/19/2014 NIPPLE DISCHARGE 04/10/2006 07/08/2013 documented as of this encounter (statuses as of 11/21/2022) [address]-2017 History of Past illness Narrative* Problem Noted Date Resolved Date Acute superficial gastritis with hemorrhage 09/2806/05/2017 Iron deficiency anemia due to chronic blood loss 04/21/2016 10/30/2016 Unspecified essential hypertension 11/22/2006 01/19/2014 NIPPLE DISCHARGE 04/10/2006 07/08/2013 documented as of this encounter (statuses as of 12/08/2022) [address]-2017 History of Past illness Narrative* Problem Noted Date Diagnosed Date Resolved Date Acute superficial gastritis with hemorrhage 10/19/2016 06/05/2017 Iron deficiency anemia due t o chronic blood loss 04/21/2016 10/30/2016 Unspecified essential hypertension 11/22/2006 01/19/2014 NIPPLE DISCHARGE 04/10/2006 07/08/2013 documented as of this encounter (statuses as of 02/09/2023) [address]23-2017 History of Past illness Narrative* Problem Noted Date Diagnosed Date Resolved Date Acute superficial gastritis with hemorrhage 10/19/2016 06/05/2017 Iron deficiency anemia due t o chronic blood loss 04/21/2016 10/30/2016 Unspecified essential hypertension 11/22/2006 01/19/2014 NIPPLE DISCHARGE 04/10/2006 07/08/2013 documented as of this encounter (statuses as of 02/15/2023) [address]23-2017 History of Past illness Narrative* Problem Noted Date Diagnosed Date Resolved Date Acute superficial gastritis with hemorrhage 10/19/2016 06/05/2017 Iron deficiency anemia due t o chronic blood loss 04/21/2016 10/30/2016 Unspecified essential hypertension 11/22/2006 01/19/2014 NIPPLE DISCHARGE 04/10/2006 07/08/2013 documented as of this encounter (statuses as of 02/28/2023) [address]23-2017 History of Past illness Narrative* Problem Noted Date Diagnosed Date Resolved Date Acute superficial gastritis with hemorrhage 10/19/2016 06/05/2017 Iron deficiency anemia due t o chronic blood loss 04/21/2016 10/30/2016 Unspecified essential hypertension 11/22/2006 01/19/2014 NIPPLE DISCHARGE 04/10/2006 07/08/2013 documented as of this encounter (statuses as of 03/30/2023) [address]23-2017 History of Past illness Narrative* Problem Noted Date Diagnosed Date Resolved Date Acute superficial gastritis with hemorrhage 10/19/2016 06/05/2017 Iron deficiency anemia due t o chronic blood loss 04/21/2016 10/30/2016 Unspecified essential hypertension 11/22/2006 01/19/2014 NIPPLE DISCHARGE 04/10/2006 07/08/2013 documented as of this encounter (statuses as of 03/30/2023) [address]-2017 History of Past illness Narrative* Problem Noted Date Diagnosed Date Resolved Date Acute superficial gastritis with hemorrhage 10/19/2016 06/05/2017 Iron deficiency anemia due t o chronic blood loss 04/21/2016 10/30/2016 Unspecified essential hypertension 11/22/2006 01/19/2014 NIPPLE DISCHARGE 04/10/2006 07/08/2013 documented as of this encounter (statuses as of 04/04/2023) [address]23-2017 History of Past illness Narrative* Problem Noted Date Diagnosed Date Resolved Date Acute superficial gastritis with hemorrhage 10/19/2016 06/05/2017 Iron deficiency anemia due t o chronic blood loss 04/21/2016 10/30/2016 Unspecified essential hypertension 11/22/2006 01/19/2014 NIPPLE DISCHARGE 04/10/2006 07/08/2013 documented as of this encounter (statuses as of 04/17/2023) [address]23-2017 History of Past illness Narrative* Problem Noted Date Diagnosed Date Resolved Date Acute superficial gastritis with hemorrhage 10/19/2016 06/05/2017 Iron deficiency anemia due t o chronic blood loss 04/21/2016 10/30/2016 Unspecified essential hypertension 11/22/2006 01/19/2014 NIPPLE DISCHARGE 04/10/2006 07/08/2013 documented as of this encounter (statuses as of 05/17/2023) [address]23-2017 History of Past illness Narrative* Problem Noted Date Diagnosed Date Resolved Date Acute superficial gastritis with hemorrhage 10/19/2016 06/05/2017 Iron deficiency anemia due t o chronic blood loss 04/21/2016 10/30/2016 Unspecified essential hypertension 11/22/2006 01/19/2014 NIPPLE DISCHARGE 04/10/2006 07/08/2013 documented as of this encounter (statuses as of 05/25/2023) [address]23-2017 History of Past illness Narrative* Problem Noted Date Diagnosed Date Resolved Date Acute superficial gastritis with hemorrhage 10/19/2016 06/05/2017 Iron deficiency anemia due t o chronic blood loss 04/21/2016 10/30/2016 Unspecified essential hypertension 11/22/2006 01/19/2014 NIPPLE DISCHARGE 04/10/2006 07/08/2013 documented as of this encounter (statuses as of 06/03/2023) [address]-2017 History of Past illness Narrative* Problem Noted Date Diagnosed Date Resolved Date Acute superficial gastritis with hemorrhage 10/19/2016 06/05/2017 Iron deficiency anemia due t o chronic blood loss 04/21/2016 10/30/2016 Unspecified essential hypertension 11/22/2006 01/19/2014 NIPPLE DISCHARGE 04/10/2006 07/08/2013 documented as of this encounter (statuses as of 06/04/2023) [address]23-2017 History of Past illness Narrative* Problem Noted Date Diagnosed Date Resolved Date Acute superficial gastritis with hemorrhage 10/19/2016 06/05/2017 Iron deficiency anemia due t o chronic blood loss 04/21/2016 10/30/2016 Unspecified essential hypertension 11/22/2006 01/19/2014 NIPPLE DISCHARGE 04/10/2006 07/08/2013 documented as of this encounter (statuses as of 08/31/2023) [address]-2017 History of Past illness Narrative* Problem Noted Date Diagnosed Date Resolved Date Acute superficial gastritis with hemorrhage 10/19/2016 06/05/2017 Iron deficiency anemia due t o chronic blood loss 04/21/2016 10/30/2016 Unspecified essential hypertension 11/22/2006 01/19/2014 NIPPLE DISCHARGE 04/10/2006 07/08/2013 documented as of this encounter (statuses as of 08/31/2023) [address]-2017 History of Past illness Narrative* Problem Noted Date Diagnosed Date Resolved Date Acute superficial gastritis with hemorrhage 10/19/2016 06/05/2017 Iron deficiency anemia due t o chronic blood loss 04/21/2016 10/30/2016 Unspecified essential hypertension 11/22/2006 01/19/2014 NIPPLE DISCHARGE 04/10/2006 07/08/2013 documented as of this encounter (statuses as of 10/19/2023) [address]2017 History of Past illness Narrative* Problem Noted Date Diagnosed Date Resolved Date Acute superficial gastritis with hemorrhage 10/19/2016 06/05/2017 Iron deficiency anemia due t o chronic blood loss 04/21/2016 10/30/2016 Unspecified essential hypertension 11/22/2006 01/19/2014 NIPPLE DISCHARGE 04/10/2006 07/08/2013 documented as of this encounter (statuses as of 11/18/2023) [facility] Diagnosis CML (chronic myelocytic leukemia) (HCC)- Primary Chronic myeloid leukemia, without mention of having achieved remission [facility] CML (chronic myelocytic leukemia) (HCC)- Primary Chronic myeloid leukemia, without mention of having achieved remission [facility]) [facility] Personal history of myeloid leukemia- Primary [facility] Multiple sclerosis (HCC) Multiple sclerosis Encounter for long-term (current) use of medications Encounter for long-term (current) use of other medications [facility] Diagnosis Multiple sclerosis (HCC)- Primary Multiple sclerosis Encounter for long-term (current) use of medications Encounter for long-term (current) use of other medications [facility] Calcification of left breast on mammography- Primary [facility] noteNo assessment information availableW[facility] Work Phone: Evaluation note* Diagnosis Intraductal papilloma- Primary Benign neoplasm of unspecified site [facility]* Diagnosis CML (chronic myelocytic leukemia) (HCC)- Primary Chronic myeloid leukemia, without mention of having achieved remission Papilloma of left breast [facility] Papilloma of left breast- Primary [facility] Diagnosis Abnormal mammogram with microcalcification- Primary Mammographic microcalcification Papilloma of left breast [facility] Diagnosis CML (chronic myelocytic leukemia) (HCC)- Primary Chronic myeloid leukemia, without mention of having achieved remission [facility] Multiple [facility] (HCC)- Primary Multiple sclerosis [facility] Diagnosis Encounter for long-term (current) use of medications Encounter for long-term (current) use of other medications Multiple sclerosis (HCC) [facility] Personal history of lymphoid leukemia- Primary Chronic myeloid leukemia (HCC) Chronic myeloid leukemia, without mention of having achieved remission [facility] Pain- Primary Generalized [facility] Diagnosis Biceps tendonitis on left- Primary Bicipital tenosynovitis [facility] Personal history of lymphoid leukemia- Primary CML (chronic myelocytic leukemia) (HCC) Chronic myeloid leukemia, without mention of having achieved remission [facility] Multiple [facility] ([facility])- Primary Multiple sclerosis [facility] Diagnosis Biceps tendonitis of both shoulders- [facility] Diagnosis Abnormal finding on breast imaging- Primary Other (abnormal) findings on radiological examination of breast [facility] Diagnosis Intraductal papilloma of left breast- Primary Abnormal mammogram of right breast [facility] Diagnosis CML (chronic myelocytic leukemia) (HCC)- Primary Chronic myeloid leukemia, without mention of having achieved remission [facility] Diagnosis CML (chronic myelocytic leukemia) (HCC)- Primary Chronic myeloid leukemia, without mention of having achieved remission [facility] Diagnosis Pain Generalized pain [facility]* Diagnosis Pure hypercholesterolemia, unspecified documented in this encounter [facility] Work Phone: Evaluation note* Diagnosis Pure hypercholesterolemia, unspecified documented in this encounter [facility] Work Phone: Evaluation note* Diagnosis Multiple sclerosis (HCC)- Primary Multiple sclerosis Encounter for long-term (current) use of medications Encounter for long-term (current) use of other medications Demyelinating disease of central nervous system (HCC) Demyelinating disease of central nervous system, unspecified [facility] Multiple [facility] ([facility]) [facility] Personal history of lymphoid leukemia- Primary CML (chronic myelocytic leukemia) (HCC) Chronic myeloid leukemia, without mention of having achieved remission [facility] Diagnosis CML (chronic myelocytic leukemia) (HCC)- Primary Chronic myeloid leukemia, without mention of having achieved remission [facility] Diagnosis Abnormal finding on breast imaging Other (abnormal) findings on radiological examination of breast [facility] Diagnosis Abnormal mammogram with microcalcification Mammographic microcalcification Papilloma of left breast [facility] Diagnosis CML (chronic myelocytic leukemia) (HCC)- Primary Chronic myeloid leukemia, without mention of having achieved remission [facility] Name Dates Details Patient Instructions Indication:BMI 29.0-29.9,adult Start:28-Jul-2021 Instruction Type:Provider Instructions for Treatment How to Access Health Informa tion Online using Patient Portal and [employer] Apps Indication:BMI 29.0-29.9,adult Start:28-Jul-2021 Instruction Type:Patient Education Patient Instructions Indication:Non-smoker Start:30-Jun-2021 Instruction Type:Provider Instructions for Treatment How to Access Health Informa tion Online using Patient Portal and [employer] Apps Indication:Non-smoker Start:30-Jun-2021 Instruction Type:Patient Education How to access health informa tion online Indication:BMI 27.0-27.9,adult Start:18-Feb-2020 Instruction Type:Patient Education How to access health informa tion online - Detail Indication:BMI 27.0-27.9,adult Start:18-Feb-2020 Instruction Type:Patient Education Patient Instructions Indication:BMI 27.0-27.9,adult Start:18-Feb-2020 Instruction Type:Provider Instructions for Treatment How to access health informa tion online Indication:Non-smoker Start:15-Jan-2020 Instruction Type:Patient Education How to access health informa tion online - Detail Indication:Non-smoker Start:15-Jan-2020 Instruction Type:Patient Education Patient Instructions Indication:Non-smoker Start:15-Jan-2020 Instruction Type:Provider Instructions for Treatment How to access health informa tion online Indication:Right foot pain Start:08-May-2019 Instruction Type:Patient Education How to access health informa tion online - Detail Indication:Right foot pain Start:08-May-2019 Instruction Type:Patient Education Patient Instructions Indication:Right foot pain Start:08-May-2019 Instruction Type:Provider Instructions for Treatment How to access health informa tion online Indication:Non-smoker Start:12-Mar-2019 Instruction Type:Patient Education How to access health informa tion online - Detail Indication:Non-smoker Start:12-Mar-2019 Instruction Type:Patient Education Patient Instructions Indication:Non-smoker Start:12-Mar-2019 Instruction Type:Provider Instructions for Treatment Patient Instructions Indication:Non-smoker Start:12-Mar-2019 Instruction Type:Provider Instructions for Treatment How to access health informa tion online Indication:BMI 27.0-27.9,adult Start:18-Jul-2018 Instruction Type:Patient Education How to access health informa tion online - Detail Indication:BMI 27.0-27.9,adult Start:18-Jul-2018 Instruction Type:Patient Education Patient Instructions Indication:Sinus pressure Start:18-Jul-2018 Instruction Type:Provider Instructions for Treatment How to access health informa tion online Indication:BMI 27.0-27.9,adult Start:24-Oct-2017 Instruction Type:Patient Education How to access health informa tion online - Detail Indication:BMI 27.0-27.9,adult Start:24-Oct-2017 Instruction Type:Patient Education Patient Instructions Indication:BMI 27.0-27.9,adult Start:24-Oct-2017 Instruction Type:Provider Instructions for Treatment How to access health informa tion online Indication:Non-smoker Start:28-Feb-2017 Instruction Type:Patient Education How to access health informa tion online - Detail Indication:Non-smoker Start:28-Feb-2017 Instruction Type:Patient Education Patient Instructions Indication:Non-smoker Start:28-Feb-2017 Instruction Type:Provider Instructions for Treatment How to access health informa tion online Indication:Flu-like symptoms Start:17-May-2016 Instruction Type:Patient Education How to access health informa tion online - Detail Indication:Flu-like symptoms Start:17-May-2016 Instruction Type:Patient Education Patient Instructions Indication:Flu-like symptoms Start:17-May-2016 Instruction Type:Provider Instructions for Treatment How to access health informa tion online Indication:Hypercholesteremia Start:03-Dec-2015 Instruction Type:Patient Education How to access health informa tion online - Detail Indication:Hypercholesteremia Start:03-Dec-2015 Instruction Type:Patient Education Patient Instructions Indication:Hypercholesteremia Start:03-Dec-2015 Instruction Type:Provider Instructions for Treatment How to access health informa tion online Indication:Hypercholesteremia Start:01-Nov-2015 Instruction Type:Patient Education How to access health informa tion online - Detail Indication:Hypercholesteremia Start:01-Nov-2015 Instruction Type:Patient Education Patient Instructions Indication:Hypercholesteremia Start:01-Nov-2015 Instruction Type:Provider Instructions for Treatment How to access health informa tion online Indication:Upper Respiratory Infection (Renamed from Infection of the upper respiratory tract) Start:18-Aug-2015 Instruction Type:Patient Education How to access health informa tion online - Detail Indication:Upper Respiratory Infection (Renamed from Infection of the upper respiratory tract) Start:18-Aug-2015 Instruction Type:Patient Education Patient Instructions Indication:Upper Respiratory Infection (Renamed from Infection of the upper respiratory tract) Start:18-Aug-2015 Instruction Type:Provider Instructions for Treatment Patient Instructions Indication:Upper Respiratory Infection (Renamed from Infection of the upper respiratory tract) Start:18-Sep-2014 Instruction Type:Provider Instructions for Treatment Patient Instructions Indication:Urinary frequency Start:22-Apr-2014 Instruction Type:Provider Instructions for Treatment Patient Instructions Indication:Urinary frequency Start:28-Jan-2014 Instruction Type:Provider Instructions for Treatment Patient Instructions Indication:Acute sinusitis Start:19-Jun-2013 Instruction Type:Provider Instructions for Treatment Patient Instructions Indication:Colitis due to Clostridium difficile (Renamed from C. difficile colitis) Start:21-Mar-2013 Instruction Type:Provider Instructions for Treatment Patient Instructions Indication:Diarrhea Start:17-Mar-2013 Instruction Type:Provider Instructions for Treatment Patient Instructions Indication:Diarrhea Start:17-Mar-2013 Instruction Type:Provider Instructions for Treatment Patient Instructions Indication:Urinary tract infection, site not specified Start:18-Feb-2013 Instruction Type:Provider Instructions for Treatment Patient Instructions Indication:Hypercholesteremia Start:27-Jan-2013 Instruction Type:Provider Instructions for Treatment Patient Instructions Indication:Constipation Start:16-Aug-2012 Instruction Type:Provider Instructions for Treatment Patient Instructions Indication:Constipation Start:03-Jul-2012 Instruction Type:Provider Instructions for Treatment Patient Instructions Indication:Acute sinusitis Start:22-Apr-2012 Instruction Type:Provider Instructions for Treatment [facility] Work Phone: Instructions* Name Dates Details Patient Instructions Indication:BMI 29.0-29.9,adult Start:28-Jul-2021 Instruction Type:Provider Instructions for Treatment How to Access Health Informa tion Online using Patient Portal and [employer] Apps Indication:BMI 29.0-29.9,adult Start:28-Jul-2021 Instruction Type:Patient Education Patient Instructions Indication:Non-smoker Start:30-Jun-2021 Instruction Type:Provider Instructions for Treatment How to Access Health Informa tion Online using Patient Portal and [employer] Apps Indication:Non-smoker Start:30-Jun-2021 Instruction Type:Patient Education How to access health informa tion online Indication:BMI 27.0-27.9,adult Start:18-Feb-2020 Instruction Type:Patient Education How to access health informa tion online - Detail Indication:BMI 27.0-27.9,adult Start:18-Feb-2020 Instruction Type:Patient Education Patient Instructions Indication:BMI 27.0-27.9,adult Start:18-Feb-2020 Instruction Type:Provider Instructions for Treatment How to access health informa tion online Indication:Non-smoker Start:15-Jan-2020 Instruction Type:Patient Education How to access health informa tion online - Detail Indication:Non-smoker Start:15-Jan-2020 Instruction Type:Patient Education Patient Instructions Indication:Non-smoker Start:15-Jan-2020 Instruction Type:Provider Instructions for Treatment How to access health informa tion online Indication:Right foot pain Start:08-May-2019 Instruction Type:Patient Education How to access health informa tion online - Detail Indication:Right foot pain Start:08-May-2019 Instruction Type:Patient Education Patient Instructions Indication:Right foot pain Start:08-May-2019 Instruction Type:Provider Instructions for Treatment How to access health informa tion online Indication:Non-smoker Start:12-Mar-2019 Instruction Type:Patient Education How to access health informa tion online - Detail Indication:Non-smoker Start:12-Mar-2019 Instruction Type:Patient Education Patient Instructions Indication:Non-smoker Start:12-Mar-2019 Instruction Type:Provider Instructions for Treatment Patient Instructions Indication:Non-smoker Start:12-Mar-2019 Instruction Type:Provider Instructions for Treatment How to access health informa tion online Indication:BMI 27.0-27.9,adult Start:18-Jul-2018 Instruction Type:Patient Education How to access health informa tion online - Detail Indication:BMI 27.0-27.9,adult Start:18-Jul-2018 Instruction Type:Patient Education Patient Instructions Indication:Sinus pressure Start:18-Jul-2018 Instruction Type:Provider Instructions for Treatment How to access health informa tion online Indication:BMI 27.0-27.9,adult Start:24-Oct-2017 Instruction Type:Patient Education How to access health informa tion online - Detail Indication:BMI 27.0-27.9,adult Start:24-Oct-2017 Instruction Type:Patient Education Patient Instructions Indication:BMI 27.0-27.9,adult Start:24-Oct-2017 Instruction Type:Provider Instructions for Treatment How to access health informa tion online Indication:Non-smoker Start:28-Feb-2017 Instruction Type:Patient Education How to access health informa tion online - Detail Indication:Non-smoker Start:28-Feb-2017 Instruction Type:Patient Education Patient Instructions Indication:Non-smoker Start:28-Feb-2017 Instruction Type:Provider Instructions for Treatment How to access health informa tion online Indication:Flu-like symptoms Start:17-May-2016 Instruction Type:Patient Education How to access health informa tion online - Detail Indication:Flu-like symptoms Start:17-May-2016 Instruction Type:Patient Education Patient Instructions Indication:Flu-like symptoms Start:17-May-2016 Instruction Type:Provider Instructions for Treatment How to access health informa tion online Indication:Hypercholesteremia Start:03-Dec-2015 Instruction Type:Patient Education How to access health informa tion online - Detail Indication:Hypercholesteremia Start:03-Dec-2015 Instruction Type:Patient Education Patient Instructions Indication:Hypercholesteremia Start:03-Dec-2015 Instruction Type:Provider Instructions for Treatment How to access health informa tion online Indication:Hypercholesteremia Start:01-Nov-2015 Instruction Type:Patient Education How to access health informa tion online - Detail Indication:Hypercholesteremia Start:01-Nov-2015 Instruction Type:Patient Education Patient Instructions Indication:Hypercholesteremia Start:01-Nov-2015 Instruction Type:Provider Instructions for Treatment How to access health informa tion online Indication:Upper Respiratory Infection (Renamed from Infection of the upper respiratory tract) Start:18-Aug-2015 Instruction Type:Patient Education How to access health informa tion online - Detail Indication:Upper Respiratory Infection (Renamed from Infection of the upper respiratory tract) Start:18-Aug-2015 Instruction Type:Patient Education Patient Instructions Indication:Upper Respiratory Infection (Renamed from Infection of the upper respiratory tract) Start:18-Aug-2015 Instruction Type:Provider Instructions for Treatment Patient Instructions Indication:Upper Respiratory Infection (Renamed from Infection of the upper respiratory tract) Start:18-Sep-2014 Instruction Type:Provider Instructions for Treatment Patient Instructions Indication:Urinary frequency Start:22-Apr-2014 Instruction Type:Provider Instructions for Treatment Patient Instructions Indication:Urinary frequency Start:28-Jan-2014 Instruction Type:Provider Instructions for Treatment Patient Instructions Indication:Acute sinusitis Start:19-Jun-2013 Instruction Type:Provider Instructions for Treatment Patient Instructions Indication:Colitis due to Clostridium difficile (Renamed from C. difficile colitis) Start:21-Mar-2013 Instruction Type:Provider Instructions for Treatment Patient Instructions Indication:Diarrhea Start:17-Mar-2013 Instruction Type:Provider Instructions for Treatment Patient Instructions Indication:Diarrhea Start:17-Mar-2013 Instruction Type:Provider Instructions for Treatment Patient Instructions Indication:Urinary tract infection, site not specified Start:18-Feb-2013 Instruction Type:Provider Instructions for Treatment Patient Instructions Indication:Hypercholesteremia Start:27-Jan-2013 Instruction Type:Provider Instructions for Treatment Patient Instructions Indication:Constipation Start:16-Aug-2012 Instruction Type:Provider Instructions for Treatment Patient Instructions Indication:Constipation Start:03-Jul-2012 Instruction Type:Provider Instructions for Treatment Patient Instructions Indication:Acute sinusitis Start:22-Apr-2012 Instruction Type:Provider Instructions for Treatment [facility] Work Phone: Instructions* Name Dates Details Patient Instructions Indication:BMI 29.0-29.9,adult Start:28-Jul-2021 Instruction Type:Provider Instructions for Treatment How to Access Health Informa tion Online using Patient Portal and [employer] Apps Indication:BMI 29.0-29.9,adult Start:28-Jul-2021 Instruction Type:Patient Education Patient Instructions Indication:Non-smoker Start:30-Jun-2021 Instruction Type:Provider Instructions for Treatment How to Access Health Informa tion Online using Patient Portal and [employer] Apps Indication:Non-smoker Start:30-Jun-2021 Instruction Type:Patient Education How to access health informa tion online Indication:BMI 27.0-27.9,adult Start:18-Feb-2020 Instruction Type:Patient Education How to access health informa tion online - Detail Indication:BMI 27.0-27.9,adult Start:18-Feb-2020 Instruction Type:Patient Education Patient Instructions Indication:BMI 27.0-27.9,adult Start:18-Feb-2020 Instruction Type:Provider Instructions for Treatment How to access health informa tion online Indication:Non-smoker Start:15-Jan-2020 Instruction Type:Patient Education How to access health informa tion online - Detail Indication:Non-smoker Start:15-Jan-2020 Instruction Type:Patient Education Patient Instructions Indication:Non-smoker Start:15-Jan-2020 Instruction Type:Provider Instructions for Treatment How to access health informa tion online Indication:Right foot pain Start:08-May-2019 Instruction Type:Patient Education How to access health informa tion online - Detail Indication:Right foot pain Start:08-May-2019 Instruction Type:Patient Education Patient Instructions Indication:Right foot pain Start:08-May-2019 Instruction Type:Provider Instructions for Treatment How to access health informa tion online Indication:Non-smoker Start:12-Mar-2019 Instruction Type:Patient Education How to access health informa tion online - Detail Indication:Non-smoker Start:12-Mar-2019 Instruction Type:Patient Education Patient Instructions Indication:Non-smoker Start:12-Mar-2019 Instruction Type:Provider Instructions for Treatment Patient Instructions Indication:Non-smoker Start:12-Mar-2019 Instruction Type:Provider Instructions for Treatment How to access health informa tion online Indication:BMI 27.0-27.9,adult Start:18-Jul-2018 Instruction Type:Patient Education How to access health informa tion online - Detail Indication:BMI 27.0-27.9,adult Start:18-Jul-2018 Instruction Type:Patient Education Patient Instructions Indication:Sinus pressure Start:18-Jul-2018 Instruction Type:Provider Instructions for Treatment How to access health informa tion online Indication:BMI 27.0-27.9,adult Start:24-Oct-2017 Instruction Type:Patient Education How to access health informa tion online - Detail Indication:BMI 27.0-27.9,adult Start:24-Oct-2017 Instruction Type:Patient Education Patient Instructions Indication:BMI 27.0-27.9,adult Start:24-Oct-2017 Instruction Type:Provider Instructions for Treatment How to access health informa tion online Indication:Non-smoker Start:28-Feb-2017 Instruction Type:Patient Education How to access health informa tion online - Detail Indication:Non-smoker Start:28-Feb-2017 Instruction Type:Patient Education Patient Instructions Indication:Non-smoker Start:28-Feb-2017 Instruction Type:Provider Instructions for Treatment How to access health informa tion online Indication:Flu-like symptoms Start:17-May-2016 Instruction Type:Patient Education How to access health informa tion online - Detail Indication:Flu-like symptoms Start:17-May-2016 Instruction Type:Patient Education Patient Instructions Indication:Flu-like symptoms Start:17-May-2016 Instruction Type:Provider Instructions for Treatment How to access health informa tion online Indication:Hypercholesteremia Start:03-Dec-2015 Instruction Type:Patient Education How to access health informa tion online - Detail Indication:Hypercholesteremia Start:03-Dec-2015 Instruction Type:Patient Education Patient Instructions Indication:Hypercholesteremia Start:03-Dec-2015 Instruction Type:Provider Instructions for Treatment How to access health informa tion online Indication:Hypercholesteremia Start:01-Nov-2015 Instruction Type:Patient Education How to access health informa tion online - Detail Indication:Hypercholesteremia Start:01-Nov-2015 Instruction Type:Patient Education Patient Instructions Indication:Hypercholesteremia Start:01-Nov-2015 Instruction Type:Provider Instructions for Treatment How to access health informa tion online Indication:Upper Respiratory Infection (Renamed from Infection of the upper respiratory tract) Start:18-Aug-2015 Instruction Type:Patient Education How to access health informa tion online - Detail Indication:Upper Respiratory Infection (Renamed from Infection of the upper respiratory tract) Start:18-Aug-2015 Instruction Type:Patient Education Patient Instructions Indication:Upper Respiratory Infection (Renamed from Infection of the upper respiratory tract) Start:18-Aug-2015 Instruction Type:Provider Instructions for Treatment Patient Instructions Indication:Upper Respiratory Infection (Renamed from Infection of the upper respiratory tract) Start:18-Sep-2014 Instruction Type:Provider Instructions for Treatment Patient Instructions Indication:Urinary frequency Start:22-Apr-2014 Instruction Type:Provider Instructions for Treatment Patient Instructions Indication:Urinary frequency Start:28-Jan-2014 Instruction Type:Provider Instructions for Treatment Patient Instructions Indication:Acute sinusitis Start:19-Jun-2013 Instruction Type:Provider Instructions for Treatment Patient Instructions Indication:Colitis due to Clostridium difficile (Renamed from C. difficile colitis) Start:21-Mar-2013 Instruction Type:Provider Instructions for Treatment Patient Instructions Indication:Diarrhea Start:17-Mar-2013 Instruction Type:Provider Instructions for Treatment Patient Instructions Indication:Diarrhea Start:17-Mar-2013 Instruction Type:Provider Instructions for Treatment Patient Instructions Indication:Urinary tract infection, site not specified Start:18-Feb-2013 Instruction Type:Provider Instructions for Treatment Patient Instructions Indication:Hypercholesteremia Start:27-Jan-2013 Instruction Type:Provider Instructions for Treatment Patient Instructions Indication:Constipation Start:16-Aug-2012 Instruction Type:Provider Instructions for Treatment Patient Instructions Indication:Constipation Start:03-Jul-2012 Instruction Type:Provider Instructions for Treatment Patient Instructions Indication:Acute sinusitis Start:22-Apr-2012 Instruction Type:Provider Instructions for Treatment [facility] Work Phone: Instructions* Name Dates Details Patient Instructions Indication:BMI 29.0-29.9,adult Start:21-Sep-2021 Instruction Type:Provider Instructions for Treatment How to Access Health Informa tion Online using Patient Portal and [employer] Apps Indication:BMI 29.0-29.9,adult Start:21-Sep-2021 Instruction Type:Patient Education Patient Instructions Indication:BMI 29.0-29.9,adult Start:28-Jul-2021 Instruction Type:Provider Instructions for Treatment How to Access Health Informa tion Online using Patient Portal and [employer] Apps Indication:BMI 29.0-29.9,adult Start:28-Jul-2021 Instruction Type:Patient Education Patient Instructions Indication:Non-smoker Start:30-Jun-2021 Instruction Type:Provider Instructions for Treatment How to Access Health Informa tion Online using Patient Portal and [employer] Apps Indication:Non-smoker Start:30-Jun-2021 Instruction Type:Patient Education How to access health informa tion online Indication:BMI 27.0-27.9,adult Start:18-Feb-2020 Instruction Type:Patient Education How to access health informa tion online - Detail Indication:BMI 27.0-27.9,adult Start:18-Feb-2020 Instruction Type:Patient Education Patient Instructions Indication:BMI 27.0-27.9,adult Start:18-Feb-2020 Instruction Type:Provider Instructions for Treatment How to access health informa tion online Indication:Non-smoker Start:15-Jan-2020 Instruction Type:Patient Education How to access health informa tion online - Detail Indication:Non-smoker Start:15-Jan-2020 Instruction Type:Patient Education Patient Instructions Indication:Non-smoker Start:15-Jan-2020 Instruction Type:Provider Instructions for Treatment How to access health informa tion online Indication:Right foot pain Start:08-May-2019 Instruction Type:Patient Education How to access health informa tion online - Detail Indication:Right foot pain Start:08-May-2019 Instruction Type:Patient Education Patient Instructions Indication:Right foot pain Start:08-May-2019 Instruction Type:Provider Instructions for Treatment How to access health informa tion online Indication:Non-smoker Start:12-Mar-2019 Instruction Type:Patient Education How to access health informa tion online - Detail Indication:Non-smoker Start:12-Mar-2019 Instruction Type:Patient Education Patient Instructions Indication:Non-smoker Start:12-Mar-2019 Instruction Type:Provider Instructions for Treatment Patient Instructions Indication:Non-smoker Start:12-Mar-2019 Instruction Type:Provider Instructions for Treatment How to access health informa tion online Indication:BMI 27.0-27.9,adult Start:18-Jul-2018 Instruction Type:Patient Education How to access health informa tion online - Detail Indication:BMI 27.0-27.9,adult Start:18-Jul-2018 Instruction Type:Patient Education Patient Instructions Indication:Sinus pressure Start:18-Jul-2018 Instruction Type:Provider Instructions for Treatment How to access health informa tion online Indication:BMI 27.0-27.9,adult Start:24-Oct-2017 Instruction Type:Patient Education How to access health informa tion online - Detail Indication:BMI 27.0-27.9,adult Start:24-Oct-2017 Instruction Type:Patient Education Patient Instructions Indication:BMI 27.0-27.9,adult Start:24-Oct-2017 Instruction Type:Provider Instructions for Treatment How to access health informa tion online Indication:Non-smoker Start:28-Feb-2017 Instruction Type:Patient Education How to access health informa tion online - Detail Indication:Non-smoker Start:28-Feb-2017 Instruction Type:Patient Education Patient Instructions Indication:Non-smoker Start:28-Feb-2017 Instruction Type:Provider Instructions for Treatment How to access health informa tion online Indication:Flu-like symptoms Start:17-May-2016 Instruction Type:Patient Education How to access health informa tion online - Detail Indication:Flu-like symptoms Start:17-May-2016 Instruction Type:Patient Education Patient Instructions Indication:Flu-like symptoms Start:17-May-2016 Instruction Type:Provider Instructions for Treatment How to access health informa tion online Indication:Hypercholesteremia Start:03-Dec-2015 Instruction Type:Patient Education How to access health informa tion online - Detail Indication:Hypercholesteremia Start:03-Dec-2015 Instruction Type:Patient Education Patient Instructions Indication:Hypercholesteremia Start:03-Dec-2015 Instruction Type:Provider Instructions for Treatment How to access health informa tion online Indication:Hypercholesteremia Start:01-Nov-2015 Instruction Type:Patient Education How to access health informa tion online - Detail Indication:Hypercholesteremia Start:01-Nov-2015 Instruction Type:Patient Education Patient Instructions Indication:Hypercholesteremia Start:01-Nov-2015 Instruction Type:Provider Instructions for Treatment How to access health informa tion online Indication:Upper Respiratory Infection (Renamed from Infection of the upper respiratory tract) Start:18-Aug-2015 Instruction Type:Patient Education How to access health informa tion online - Detail Indication:Upper Respiratory Infection (Renamed from Infection of the upper respiratory tract) Start:18-Aug-2015 Instruction Type:Patient Education Patient Instructions Indication:Upper Respiratory Infection (Renamed from Infection of the upper respiratory tract) Start:18-Aug-2015 Instruction Type:Provider Instructions for Treatment Patient Instructions Indication:Upper Respiratory Infection (Renamed from Infection of the upper respiratory tract) Start:18-Sep-2014 Instruction Type:Provider Instructions for Treatment Patient Instructions Indication:Urinary frequency Start:22-Apr-2014 Instruction Type:Provider Instructions for Treatment Patient Instructions Indication:Urinary frequency Start:28-Jan-2014 Instruction Type:Provider Instructions for Treatment Patient Instructions Indication:Acute sinusitis Start:19-Jun-2013 Instruction Type:Provider Instructions for Treatment Patient Instructions Indication:Colitis due to Clostridium difficile (Renamed from C. difficile colitis) Start:21-Mar-2013 Instruction Type:Provider Instructions for Treatment Patient Instructions Indication:Diarrhea Start:17-Mar-2013 Instruction Type:Provider Instructions for Treatment Patient Instructions Indication:Diarrhea Start:17-Mar-2013 Instruction Type:Provider Instructions for Treatment Patient Instructions Indication:Urinary tract infection, site not specified Start:18-Feb-2013 Instruction Type:Provider Instructions for Treatment Patient Instructions Indication:Hypercholesteremia Start:27-Jan-2013 Instruction Type:Provider Instructions for Treatment Patient Instructions Indication:Constipation Start:16-Aug-2012 Instruction Type:Provider Instructions for Treatment Patient Instructions Indication:Constipation Start:03-Jul-2012 Instruction Type:Provider Instructions for Treatment Patient Instructions Indication:Acute sinusitis Start:22-Apr-2012 Instruction Type:Provider Instructions for Treatment [facility]; [facility] Work Phone: Instructions* Name Dates Details Patient Instructions Indication:BMI 29.0-29.9,adult Start:21-Sep-2021 Instruction Type:Provider Instructions for Treatment How to Access Health Informa tion Online using Patient Portal and [employer]rd [employer] Apps Indication:BMI 29.0-29.9,adult Start:21-Sep-2021 Instruction Type:Patient Education Patient Instructions Indication:BMI 29.0-29.9,adult Start:28-Jul-2021 Instruction Type:Provider Instructions for Treatment How to Access Health Informa tion Online using Patient Portal and [employer]rd [employer] Apps Indication:BMI 29.0-29.9,adult Start:28-Jul-2021 Instruction Type:Patient Education Patient Instructions Indication:Non-smoker Start:30-Jun-2021 Instruction Type:Provider Instructions for Treatment How to Access Health Informa tion Online using Patient Portal and [employer]rd [employer] Apps Indication:Non-smoker Start:30-Jun-2021 Instruction Type:Patient Education How to access health informa tion online Indication:BMI 27.0-27.9,adult Start:18-Feb-2020 Instruction Type:Patient Education How to access health informa tion online - Detail Indication:BMI 27.0-27.9,adult Start:18-Feb-2020 Instruction Type:Patient Education Patient Instructions Indication:BMI 27.0-27.9,adult Start:18-Feb-2020 Instruction Type:Provider Instructions for Treatment How to access health informa tion online Indication:Non-smoker Start:15-Jan-2020 Instruction Type:Patient Education How to access health informa tion online - Detail Indication:Non-smoker Start:15-Jan-2020 Instruction Type:Patient Education Patient Instructions Indication:Non-smoker Start:15-Jan-2020 Instruction Type:Provider Instructions for Treatment How to access health informa tion online Indication:Right foot pain Start:08-May-2019 Instruction Type:Patient Education How to access health informa tion online - Detail Indication:Right foot pain Start:08-May-2019 Instruction Type:Patient Education Patient Instructions Indication:Right foot pain Start:08-May-2019 Instruction Type:Provider Instructions for Treatment How to access health informa tion online Indication:Non-smoker Start:12-Mar-2019 Instruction Type:Patient Education How to access health informa tion online - Detail Indication:Non-smoker Start:12-Mar-2019 Instruction Type:Patient Education Patient Instructions Indication:Non-smoker Start:12-Mar-2019 Instruction Type:Provider Instructions for Treatment Patient Instructions Indication:Non-smoker Start:12-Mar-2019 Instruction Type:Provider Instructions for Treatment How to access health informa tion online Indication:BMI 27.0-27.9,adult Start:18-Jul-2018 Instruction Type:Patient Education How to access health informa tion online - Detail Indication:BMI 27.0-27.9,adult Start:18-Jul-2018 Instruction Type:Patient Education Patient Instructions Indication:Sinus pressure Start:18-Jul-2018 Instruction Type:Provider Instructions for Treatment How to access health informa tion online Indication:BMI 27.0-27.9,adult Start:24-Oct-2017 Instruction Type:Patient Education How to access health informa tion online - Detail Indication:BMI 27.0-27.9,adult Start:24-Oct-2017 Instruction Type:Patient Education Patient Instructions Indication:BMI 27.0-27.9,adult Start:24-Oct-2017 Instruction Type:Provider Instructions for Treatment How to access health informa tion online Indication:Non-smoker Start:28-Feb-2017 Instruction Type:Patient Education How to access health informa tion online - Detail Indication:Non-smoker Start:28-Feb-2017 Instruction Type:Patient Education Patient Instructions Indication:Non-smoker Start:28-Feb-2017 Instruction Type:Provider Instructions for Treatment How to access health informa tion online Indication:Flu-like symptoms Start:17-May-2016 Instruction Type:Patient Education How to access health informa tion online - Detail Indication:Flu-like symptoms Start:17-May-2016 Instruction Type:Patient Education Patient Instructions Indication:Flu-like symptoms Start:17-May-2016 Instruction Type:Provider Instructions for Treatment How to access health informa tion online Indication:Hypercholesteremia Start:03-Dec-2015 Instruction Type:Patient Education How to access health informa tion online - Detail Indication:Hypercholesteremia Start:03-Dec-2015 Instruction Type:Patient Education Patient Instructions Indication:Hypercholesteremia Start:03-Dec-2015 Instruction Type:Provider Instructions for Treatment How to access health informa tion online Indication:Hypercholesteremia Start:01-Nov-2015 Instruction Type:Patient Education How to access health informa tion online - Detail Indication:Hypercholesteremia Start:01-Nov-2015 Instruction Type:Patient Education Patient Instructions Indication:Hypercholesteremia Start:01-Nov-2015 Instruction Type:Provider Instructions for Treatment How to access health informa tion online Indication:Upper Respiratory Infection (Renamed from Infection of the upper respiratory tract) Start:18-Aug-2015 Instruction Type:Patient Education How to access health informa tion online - Detail Indication:Upper Respiratory Infection (Renamed from Infection of the upper respiratory tract) Start:18-Aug-2015 Instruction Type:Patient Education Patient Instructions Indication:Upper Respiratory Infection (Renamed from Infection of the upper respiratory tract) Start:18-Aug-2015 Instruction Type:Provider Instructions for Treatment Patient Instructions Indication:Upper Respiratory Infection (Renamed from Infection of the upper respiratory tract) Start:18-Sep-2014 Instruction Type:Provider Instructions for Treatment Patient Instructions Indication:Urinary frequency Start:22-Apr-2014 Instruction Type:Provider Instructions for Treatment Patient Instructions Indication:Urinary frequency Start:28-Jan-2014 Instruction Type:Provider Instructions for Treatment Patient Instructions Indication:Acute sinusitis Start:19-Jun-2013 Instruction Type:Provider Instructions for Treatment Patient Instructions Indication:Colitis due to Clostridium difficile (Renamed from C. difficile colitis) Start:21-Mar-2013 Instruction Type:Provider Instructions for Treatment Patient Instructions Indication:Diarrhea Start:17-Mar-2013 Instruction Type:Provider Instructions for Treatment Patient Instructions Indication:Diarrhea Start:17-Mar-2013 Instruction Type:Provider Instructions for Treatment Patient Instructions Indication:Urinary tract infection, site not specified Start:18-Feb-2013 Instruction Type:Provider Instructions for Treatment Patient Instructions Indication:Hypercholesteremia Start:27-Jan-2013 Instruction Type:Provider Instructions for Treatment Patient Instructions Indication:Constipation Start:16-Aug-2012 Instruction Type:Provider Instructions for Treatment Patient Instructions Indication:Constipation Start:03-Jul-2012 Instruction Type:Provider Instructions for Treatment Patient Instructions Indication:Acute sinusitis Start:22-Apr-2012 Instruction Type:Provider Instructions for Treatment [facility]; [facility] Work Phone: Instructions* Name Dates Details Patient Instructions Indication:BMI 29.0-29.9,adult Start:21-Sep-2021 Instruction Type:Provider Instructions for Treatment How to Access Health Informa tion Online using Patient Portal and [employer]rd [employer] Apps Indication:BMI 29.0-29.9,adult Start:21-Sep-2021 Instruction Type:Patient Education Patient Instructions Indication:BMI 29.0-29.9,adult Start:28-Jul-2021 Instruction Type:Provider Instructions for Treatment How to Access Health Informa tion Online using Patient Portal and [employer]rd [employer] Apps Indication:BMI 29.0-29.9,adult Start:28-Jul-2021 Instruction Type:Patient Education Patient Instructions Indication:Non-smoker Start:30-Jun-2021 Instruction Type:Provider Instructions for Treatment How to Access Health Informa tion Online using Patient Portal and [employer]rd [employer] Apps Indication:Non-smoker Start:30-Jun-2021 Instruction Type:Patient Education How to access health informa tion online Indication:BMI 27.0-27.9,adult Start:18-Feb-2020 Instruction Type:Patient Education How to access health informa tion online - Detail Indication:BMI 27.0-27.9,adult Start:18-Feb-2020 Instruction Type:Patient Education Patient Instructions Indication:BMI 27.0-27.9,adult Start:18-Feb-2020 Instruction Type:Provider Instructions for Treatment How to access health informa tion online Indication:Non-smoker Start:15-Jan-2020 Instruction Type:Patient Education How to access health informa tion online - Detail Indication:Non-smoker Start:15-Jan-2020 Instruction Type:Patient Education Patient Instructions Indication:Non-smoker Start:15-Jan-2020 Instruction Type:Provider Instructions for Treatment How to access health informa tion online Indication:Right foot pain Start:08-May-2019 Instruction Type:Patient Education How to access health informa tion online - Detail Indication:Right foot pain Start:08-May-2019 Instruction Type:Patient Education Patient Instructions Indication:Right foot pain Start:08-May-2019 Instruction Type:Provider Instructions for Treatment How to access health informa tion online Indication:Non-smoker Start:12-Mar-2019 Instruction Type:Patient Education How to access health informa tion online - Detail Indication:Non-smoker Start:12-Mar-2019 Instruction Type:Patient Education Patient Instructions Indication:Non-smoker Start:12-Mar-2019 Instruction Type:Provider Instructions for Treatment Patient Instructions Indication:Non-smoker Start:12-Mar-2019 Instruction Type:Provider Instructions for Treatment How to access health informa tion online Indication:BMI 27.0-27.9,adult Start:18-Jul-2018 Instruction Type:Patient Education How to access health informa tion online - Detail Indication:BMI 27.0-27.9,adult Start:18-Jul-2018 Instruction Type:Patient Education Patient Instructions Indication:Sinus pressure Start:18-Jul-2018 Instruction Type:Provider Instructions for Treatment How to access health informa tion online Indication:BMI 27.0-27.9,adult Start:24-Oct-2017 Instruction Type:Patient Education How to access health informa tion online - Detail Indication:BMI 27.0-27.9,adult Start:24-Oct-2017 Instruction Type:Patient Education Patient Instructions Indication:BMI 27.0-27.9,adult Start:24-Oct-2017 Instruction Type:Provider Instructions for Treatment How to access health informa tion online Indication:Non-smoker Start:28-Feb-2017 Instruction Type:Patient Education How to access health informa tion online - Detail Indication:Non-smoker Start:28-Feb-2017 Instruction Type:Patient Education Patient Instructions Indication:Non-smoker Start:28-Feb-2017 Instruction Type:Provider Instructions for Treatment How to access health informa tion online Indication:Flu-like symptoms Start:17-May-2016 Instruction Type:Patient Education How to access health informa tion online - Detail Indication:Flu-like symptoms Start:17-May-2016 Instruction Type:Patient Education Patient Instructions Indication:Flu-like symptoms Start:17-May-2016 Instruction Type:Provider Instructions for Treatment How to access health informa tion online Indication:Hypercholesteremia Start:03-Dec-2015 Instruction Type:Patient Education How to access health informa tion online - Detail Indication:Hypercholesteremia Start:03-Dec-2015 Instruction Type:Patient Education Patient Instructions Indication:Hypercholesteremia Start:03-Dec-2015 Instruction Type:Provider Instructions for Treatment How to access health informa tion online Indication:Hypercholesteremia Start:01-Nov-2015 Instruction Type:Patient Education How to access health informa tion online - Detail Indication:Hypercholesteremia Start:01-Nov-2015 Instruction Type:Patient Education Patient Instructions Indication:Hypercholesteremia Start:01-Nov-2015 Instruction Type:Provider Instructions for Treatment How to access health informa tion online Indication:Upper Respiratory Infection (Renamed from Infection of the upper respiratory tract) Start:18-Aug-2015 Instruction Type:Patient Education How to access health informa tion online - Detail Indication:Upper Respiratory Infection (Renamed from Infection of the upper respiratory tract) Start:18-Aug-2015 Instruction Type:Patient Education Patient Instructions Indication:Upper Respiratory Infection (Renamed from Infection of the upper respiratory tract) Start:18-Aug-2015 Instruction Type:Provider Instructions for Treatment Patient Instructions Indication:Upper Respiratory Infection (Renamed from Infection of the upper respiratory tract) Start:18-Sep-2014 Instruction Type:Provider Instructions for Treatment Patient Instructions Indication:Urinary frequency Start:22-Apr-2014 Instruction Type:Provider Instructions for Treatment Patient Instructions Indication:Urinary frequency Start:28-Jan-2014 Instruction Type:Provider Instructions for Treatment Patient Instructions Indication:Acute sinusitis Start:19-Jun-2013 Instruction Type:Provider Instructions for Treatment Patient Instructions Indication:Colitis due to Clostridium difficile (Renamed from C. difficile colitis) Start:21-Mar-2013 Instruction Type:Provider Instructions for Treatment Patient Instructions Indication:Diarrhea Start:17-Mar-2013 Instruction Type:Provider Instructions for Treatment Patient Instructions Indication:Diarrhea Start:17-Mar-2013 Instruction Type:Provider Instructions for Treatment Patient Instructions Indication:Urinary tract infection, site not specified Start:18-Feb-2013 Instruction Type:Provider Instructions for Treatment Patient Instructions Indication:Hypercholesteremia Start:27-Jan-2013 Instruction Type:Provider Instructions for Treatment Patient Instructions Indication:Constipation Start:16-Aug-2012 Instruction Type:Provider Instructions for Treatment Patient Instructions Indication:Constipation Start:03-Jul-2012 Instruction Type:Provider Instructions for Treatment Patient Instructions Indication:Acute sinusitis Start:22-Apr-2012 Instruction Type:Provider Instructions for Treatment [facility]; [facility] Work Phone: Instructions* Name Dates Details Patient Instructions Indication:BMI 29.0-29.9,adult Start:21-Sep-2021 Instruction Type:Provider Instructions for Treatment How to Access Health Informa tion Online using Patient Portal and [employer]rd [employer] Apps Indication:BMI 29.0-29.9,adult Start:21-Sep-2021 Instruction Type:Patient Education Patient Instructions Indication:BMI 29.0-29.9,adult Start:28-Jul-2021 Instruction Type:Provider Instructions for Treatment How to Access Health Informa tion Online using Patient Portal and [employer]rd [employer] Apps Indication:BMI 29.0-29.9,adult Start:28-Jul-2021 Instruction Type:Patient Education Patient Instructions Indication:Non-smoker Start:30-Jun-2021 Instruction Type:Provider Instructions for Treatment How to Access Health Informa tion Online using Patient Portal and [employer]rd [employer] Apps Indication:Non-smoker Start:30-Jun-2021 Instruction Type:Patient Education How to access health informa tion online Indication:BMI 27.0-27.9,adult Start:18-Feb-2020 Instruction Type:Patient Education How to access health informa tion online - Detail Indication:BMI 27.0-27.9,adult Start:18-Feb-2020 Instruction Type:Patient Education Patient Instructions Indication:BMI 27.0-27.9,adult Start:18-Feb-2020 Instruction Type:Provider Instructions for Treatment How to access health informa tion online Indication:Non-smoker Start:15-Jan-2020 Instruction Type:Patient Education How to access health informa tion online - Detail Indication:Non-smoker Start:15-Jan-2020 Instruction Type:Patient Education Patient Instructions Indication:Non-smoker Start:15-Jan-2020 Instruction Type:Provider Instructions for Treatment How to access health informa tion online Indication:Right foot pain Start:08-May-2019 Instruction Type:Patient Education How to access health informa tion online - Detail Indication:Right foot pain Start:08-May-2019 Instruction Type:Patient Education Patient Instructions Indication:Right foot pain Start:08-May-2019 Instruction Type:Provider Instructions for Treatment How to access health informa tion online Indication:Non-smoker Start:12-Mar-2019 Instruction Type:Patient Education How to access health informa tion online - Detail Indication:Non-smoker Start:12-Mar-2019 Instruction Type:Patient Education Patient Instructions Indication:Non-smoker Start:12-Mar-2019 Instruction Type:Provider Instructions for Treatment Patient Instructions Indication:Non-smoker Start:12-Mar-2019 Instruction Type:Provider Instructions for Treatment How to access health informa tion online Indication:BMI 27.0-27.9,adult Start:18-Jul-2018 Instruction Type:Patient Education How to access health informa tion online - Detail Indication:BMI 27.0-27.9,adult Start:18-Jul-2018 Instruction Type:Patient Education Patient Instructions Indication:Sinus pressure Start:18-Jul-2018 Instruction Type:Provider Instructions for Treatment How to access health informa tion online Indication:BMI 27.0-27.9,adult Start:24-Oct-2017 Instruction Type:Patient Education How to access health informa tion online - Detail Indication:BMI 27.0-27.9,adult Start:24-Oct-2017 Instruction Type:Patient Education Patient Instructions Indication:BMI 27.0-27.9,adult Start:24-Oct-2017 Instruction Type:Provider Instructions for Treatment How to access health informa tion online Indication:Non-smoker Start:28-Feb-2017 Instruction Type:Patient Education How to access health informa tion online - Detail Indication:Non-smoker Start:28-Feb-2017 Instruction Type:Patient Education Patient Instructions Indication:Non-smoker Start:28-Feb-2017 Instruction Type:Provider Instructions for Treatment How to access health informa tion online Indication:Flu-like symptoms Start:17-May-2016 Instruction Type:Patient Education How to access health informa tion online - Detail Indication:Flu-like symptoms Start:17-May-2016 Instruction Type:Patient Education Patient Instructions Indication:Flu-like symptoms Start:17-May-2016 Instruction Type:Provider Instructions for Treatment How to access health informa tion online Indication:Hypercholesteremia Start:03-Dec-2015 Instruction Type:Patient Education How to access health informa tion online - Detail Indication:Hypercholesteremia Start:03-Dec-2015 Instruction Type:Patient Education Patient Instructions Indication:Hypercholesteremia Start:03-Dec-2015 Instruction Type:Provider Instructions for Treatment How to access health informa tion online Indication:Hypercholesteremia Start:01-Nov-2015 Instruction Type:Patient Education How to access health informa tion online - Detail Indication:Hypercholesteremia Start:01-Nov-2015 Instruction Type:Patient Education Patient Instructions Indication:Hypercholesteremia Start:01-Nov-2015 Instruction Type:Provider Instructions for Treatment How to access health informa tion online Indication:Upper Respiratory Infection (Renamed from Infection of the upper respiratory tract) Start:18-Aug-2015 Instruction Type:Patient Education How to access health informa tion online - Detail Indication:Upper Respiratory Infection (Renamed from Infection of the upper respiratory tract) Start:18-Aug-2015 Instruction Type:Patient Education Patient Instructions Indication:Upper Respiratory Infection (Renamed from Infection of the upper respiratory tract) Start:18-Aug-2015 Instruction Type:Provider Instructions for Treatment Patient Instructions Indication:Upper Respiratory Infection (Renamed from Infection of the upper respiratory tract) Start:18-Sep-2014 Instruction Type:Provider Instructions for Treatment Patient Instructions Indication:Urinary frequency Start:22-Apr-2014 Instruction Type:Provider Instructions for Treatment Patient Instructions Indication:Urinary frequency Start:28-Jan-2014 Instruction Type:Provider Instructions for Treatment Patient Instructions Indication:Acute sinusitis Start:19-Jun-2013 Instruction Type:Provider Instructions for Treatment Patient Instructions Indication:Colitis due to Clostridium difficile (Renamed from C. difficile colitis) Start:21-Mar-2013 Instruction Type:Provider Instructions for Treatment Patient Instructions Indication:Diarrhea Start:17-Mar-2013 Instruction Type:Provider Instructions for Treatment Patient Instructions Indication:Diarrhea Start:17-Mar-2013 Instruction Type:Provider Instructions for Treatment Patient Instructions Indication:Urinary tract infection, site not specified Start:18-Feb-2013 Instruction Type:Provider Instructions for Treatment Patient Instructions Indication:Hypercholesteremia Start:27-Jan-2013 Instruction Type:Provider Instructions for Treatment Patient Instructions Indication:Constipation Start:16-Aug-2012 Instruction Type:Provider Instructions for Treatment Patient Instructions Indication:Constipation Start:03-Jul-2012 Instruction Type:Provider Instructions for Treatment Patient Instructions Indication:Acute sinusitis Start:22-Apr-2012 Instruction Type:Provider Instructions for Treatment [facility]; [facility] Work Phone: Instructions* Name Dates Details Patient Instructions Indication:BMI 29.0-29.9,adult Start:21-Sep-2021 Instruction Type:Provider Instructions for Treatment How to Access Health Informa tion Online using Patient Portal and [employer] Apps Indication:BMI 29.0-29.9,adult Start:21-Sep-2021 Instruction Type:Patient Education Patient Instructions Indication:BMI 29.0-29.9,adult Start:28-Jul-2021 Instruction Type:Provider Instructions for Treatment How to Access Health Informa tion Online using Patient Portal and [employer]rd [employer] Apps Indication:BMI 29.0-29.9,adult Start:28-Jul-2021 Instruction Type:Patient Education Patient Instructions Indication:Non-smoker Start:30-Jun-2021 Instruction Type:Provider Instructions for Treatment How to Access Health Informa tion Online using Patient Portal and [employer] Apps Indication:Non-smoker Start:30-Jun-2021 Instruction Type:Patient Education How to access health informa tion online Indication:BMI 27.0-27.9,adult Start:18-Feb-2020 Instruction Type:Patient Education How to access health informa tion online - Detail Indication:BMI 27.0-27.9,adult Start:18-Feb-2020 Instruction Type:Patient Education Patient Instructions Indication:BMI 27.0-27.9,adult Start:18-Feb-2020 Instruction Type:Provider Instructions for Treatment How to access health informa tion online Indication:Non-smoker Start:15-Jan-2020 Instruction Type:Patient Education How to access health informa tion online - Detail Indication:Non-smoker Start:15-Jan-2020 Instruction Type:Patient Education Patient Instructions Indication:Non-smoker Start:15-Jan-2020 Instruction Type:Provider Instructions for Treatment How to access health informa tion online Indication:Right foot pain Start:08-May-2019 Instruction Type:Patient Education How to access health informa tion online - Detail Indication:Right foot pain Start:08-May-2019 Instruction Type:Patient Education Patient Instructions Indication:Right foot pain Start:08-May-2019 Instruction Type:Provider Instructions for Treatment How to access health informa tion online Indication:Non-smoker Start:12-Mar-2019 Instruction Type:Patient Education How to access health informa tion online - Detail Indication:Non-smoker Start:12-Mar-2019 Instruction Type:Patient Education Patient Instructions Indication:Non-smoker Start:12-Mar-2019 Instruction Type:Provider Instructions for Treatment Patient Instructions Indication:Non-smoker Start:12-Mar-2019 Instruction Type:Provider Instructions for Treatment How to access health informa tion online Indication:BMI 27.0-27.9,adult Start:18-Jul-2018 Instruction Type:Patient Education How to access health informa tion online - Detail Indication:BMI 27.0-27.9,adult Start:18-Jul-2018 Instruction Type:Patient Education Patient Instructions Indication:Sinus pressure Start:18-Jul-2018 Instruction Type:Provider Instructions for Treatment How to access health informa tion online Indication:BMI 27.0-27.9,adult Start:24-Oct-2017 Instruction Type:Patient Education How to access health informa tion online - Detail Indication:BMI 27.0-27.9,adult Start:24-Oct-2017 Instruction Type:Patient Education Patient Instructions Indication:BMI 27.0-27.9,adult Start:24-Oct-2017 Instruction Type:Provider Instructions for Treatment How to access health informa tion online Indication:Non-smoker Start:28-Feb-2017 Instruction Type:Patient Education How to access health informa tion online - Detail Indication:Non-smoker Start:28-Feb-2017 Instruction Type:Patient Education Patient Instructions Indication:Non-smoker Start:28-Feb-2017 Instruction Type:Provider Instructions for Treatment How to access health informa tion online Indication:Flu-like symptoms Start:17-May-2016 Instruction Type:Patient Education How to access health informa tion online - Detail Indication:Flu-like symptoms Start:17-May-2016 Instruction Type:Patient Education Patient Instructions Indication:Flu-like symptoms Start:17-May-2016 Instruction Type:Provider Instructions for Treatment How to access health informa tion online Indication:Hypercholesteremia Start:03-Dec-2015 Instruction Type:Patient Education How to access health informa tion online - Detail Indication:Hypercholesteremia Start:03-Dec-2015 Instruction Type:Patient Education Patient Instructions Indication:Hypercholesteremia Start:03-Dec-2015 Instruction Type:Provider Instructions for Treatment How to access health informa tion online Indication:Hypercholesteremia Start:01-Nov-2015 Instruction Type:Patient Education How to access health informa tion online - Detail Indication:Hypercholesteremia Start:01-Nov-2015 Instruction Type:Patient Education Patient Instructions Indication:Hypercholesteremia Start:01-Nov-2015 Instruction Type:Provider Instructions for Treatment How to access health informa tion online Indication:Upper Respiratory Infection (Renamed from Infection of the upper respiratory tract) Start:18-Aug-2015 Instruction Type:Patient Education How to access health informa tion online - Detail Indication:Upper Respiratory Infection (Renamed from Infection of the upper respiratory tract) Start:18-Aug-2015 Instruction Type:Patient Education Patient Instructions Indication:Upper Respiratory Infection (Renamed from Infection of the upper respiratory tract) Start:18-Aug-2015 Instruction Type:Provider Instructions for Treatment Patient Instructions Indication:Upper Respiratory Infection (Renamed from Infection of the upper respiratory tract) Start:18-Sep-2014 Instruction Type:Provider Instructions for Treatment Patient Instructions Indication:Urinary frequency Start:22-Apr-2014 Instruction Type:Provider Instructions for Treatment Patient Instructions Indication:Urinary frequency Start:28-Jan-2014 Instruction Type:Provider Instructions for Treatment Patient Instructions Indication:Acute sinusitis Start:19-Jun-2013 Instruction Type:Provider Instructions for Treatment Patient Instructions Indication:Colitis due to Clostridium difficile (Renamed from C. difficile colitis) Start:21-Mar-2013 Instruction Type:Provider Instructions for Treatment Patient Instructions Indication:Diarrhea Start:17-Mar-2013 Instruction Type:Provider Instructions for Treatment Patient Instructions Indication:Diarrhea Start:17-Mar-2013 Instruction Type:Provider Instructions for Treatment Patient Instructions Indication:Urinary tract infection, site not specified Start:18-Feb-2013 Instruction Type:Provider Instructions for Treatment Patient Instructions Indication:Hypercholesteremia Start:27-Jan-2013 Instruction Type:Provider Instructions for Treatment Patient Instructions Indication:Constipation Start:16-Aug-2012 Instruction Type:Provider Instructions for Treatment Patient Instructions Indication:Constipation Start:03-Jul-2012 Instruction Type:Provider Instructions for Treatment Patient Instructions Indication:Acute sinusitis Start:22-Apr-2012 Instruction Type:Provider Instructions for Treatment [facility]; [facility] Work Phone: Instructions* Name Dates Details Patient Instructions Indication:Non-smoker Start:12-Jan-2022 Instruction Type:Provider Instructions for Treatment How to Access Health Informa tion Online using Patient Portal and [employer] Apps Indication:Non-smoker Start:12-Jan-2022 Instruction Type:Patient Education Patient Instructions Indication:BMI 29.0-29.9,adult Start:21-Sep-2021 Instruction Type:Provider Instructions for Treatment How to Access Health Informa tion Online using Patient Portal and [employer] Apps Indication:BMI 29.0-29.9,adult Start:21-Sep-2021 Instruction Type:Patient Education Patient Instructions Indication:BMI 29.0-29.9,adult Start:28-Jul-2021 Instruction Type:Provider Instructions for Treatment How to Access Health Informa tion Online using Patient Portal and [employer]rd [employer] Apps Indication:BMI 29.0-29.9,adult Start:28-Jul-2021 Instruction Type:Patient Education Patient Instructions Indication:Non-smoker Start:30-Jun-2021 Instruction Type:Provider Instructions for Treatment How to Access Health Informa tion Online using Patient Portal and [employer] Apps Indication:Non-smoker Start:30-Jun-2021 Instruction Type:Patient Education How to access health informa tion online Indication:BMI 27.0-27.9,adult Start:18-Feb-2020 Instruction Type:Patient Education How to access health informa tion online - Detail Indication:BMI 27.0-27.9,adult Start:18-Feb-2020 Instruction Type:Patient Education Patient Instructions Indication:BMI 27.0-27.9,adult Start:18-Feb-2020 Instruction Type:Provider Instructions for Treatment How to access health informa tion online Indication:Non-smoker Start:15-Jan-2020 Instruction Type:Patient Education How to access health informa tion online - Detail Indication:Non-smoker Start:15-Jan-2020 Instruction Type:Patient Education Patient Instructions Indication:Non-smoker Start:15-Jan-2020 Instruction Type:Provider Instructions for Treatment How to access health informa tion online Indication:Right foot pain Start:08-May-2019 Instruction Type:Patient Education How to access health informa tion online - Detail Indication:Right foot pain Start:08-May-2019 Instruction Type:Patient Education Patient Instructions Indication:Right foot pain Start:08-May-2019 Instruction Type:Provider Instructions for Treatment How to access health informa tion online Indication:Non-smoker Start:12-Mar-2019 Instruction Type:Patient Education How to access health informa tion online - Detail Indication:Non-smoker Start:12-Mar-2019 Instruction Type:Patient Education Patient Instructions Indication:Non-smoker Start:12-Mar-2019 Instruction Type:Provider Instructions for Treatment Patient Instructions Indication:Non-smoker Start:12-Mar-2019 Instruction Type:Provider Instructions for Treatment How to access health informa tion online Indication:BMI 27.0-27.9,adult Start:18-Jul-2018 Instruction Type:Patient Education How to access health informa tion online - Detail Indication:BMI 27.0-27.9,adult Start:18-Jul-2018 Instruction Type:Patient Education Patient Instructions Indication:Sinus pressure Start:18-Jul-2018 Instruction Type:Provider Instructions for Treatment How to access health informa tion online Indication:BMI 27.0-27.9,adult Start:24-Oct-2017 Instruction Type:Patient Education How to access health informa tion online - Detail Indication:BMI 27.0-27.9,adult Start:24-Oct-2017 Instruction Type:Patient Education Patient Instructions Indication:BMI 27.0-27.9,adult Start:24-Oct-2017 Instruction Type:Provider Instructions for Treatment How to access health informa tion online Indication:Non-smoker Start:28-Feb-2017 Instruction Type:Patient Education How to access health informa tion online - Detail Indication:Non-smoker Start:28-Feb-2017 Instruction Type:Patient Education Patient Instructions Indication:Non-smoker Start:28-Feb-2017 Instruction Type:Provider Instructions for Treatment How to access health informa tion online Indication:Flu-like symptoms Start:17-May-2016 Instruction Type:Patient Education How to access health informa tion online - Detail Indication:Flu-like symptoms Start:17-May-2016 Instruction Type:Patient Education Patient Instructions Indication:Flu-like symptoms Start:17-May-2016 Instruction Type:Provider Instructions for Treatment How to access health informa tion online Indication:Hypercholesteremia Start:03-Dec-2015 Instruction Type:Patient Education How to access health informa tion online - Detail Indication:Hypercholesteremia Start:03-Dec-2015 Instruction Type:Patient Education Patient Instructions Indication:Hypercholesteremia Start:03-Dec-2015 Instruction Type:Provider Instructions for Treatment How to access health informa tion online Indication:Hypercholesteremia Start:01-Nov-2015 Instruction Type:Patient Education How to access health informa tion online - Detail Indication:Hypercholesteremia Start:01-Nov-2015 Instruction Type:Patient Education Patient Instructions Indication:Hypercholesteremia Start:01-Nov-2015 Instruction Type:Provider Instructions for Treatment How to access health informa tion online Indication:Upper Respiratory Infection (Renamed from Infection of the upper respiratory tract) Start:18-Aug-2015 Instruction Type:Patient Education How to access health informa tion online - Detail Indication:Upper Respiratory Infection (Renamed from Infection of the upper respiratory tract) Start:18-Aug-2015 Instruction Type:Patient Education Patient Instructions Indication:Upper Respiratory Infection (Renamed from Infection of the upper respiratory tract) Start:18-Aug-2015 Instruction Type:Provider Instructions for Treatment Patient Instructions Indication:Upper Respiratory Infection (Renamed from Infection of the upper respiratory tract) Start:18-Sep-2014 Instruction Type:Provider Instructions for Treatment Patient Instructions Indication:Urinary frequency Start:22-Apr-2014 Instruction Type:Provider Instructions for Treatment Patient Instructions Indication:Urinary frequency Start:28-Jan-2014 Instruction Type:Provider Instructions for Treatment Patient Instructions Indication:Acute sinusitis Start:19-Jun-2013 Instruction Type:Provider Instructions for Treatment Patient Instructions Indication:Colitis due to Clostridium difficile (Renamed from C. difficile colitis) Start:21-Mar-2013 Instruction Type:Provider Instructions for Treatment Patient Instructions Indication:Diarrhea Start:17-Mar-2013 Instruction Type:Provider Instructions for Treatment Patient Instructions Indication:Diarrhea Start:17-Mar-2013 Instruction Type:Provider Instructions for Treatment Patient Instructions Indication:Urinary tract infection, site not specified Start:18-Feb-2013 Instruction Type:Provider Instructions for Treatment Patient Instructions Indication:Hypercholesteremia Start:27-Jan-2013 Instruction Type:Provider Instructions for Treatment Patient Instructions Indication:Constipation Start:16-Aug-2012 Instruction Type:Provider Instructions for Treatment Patient Instructions Indication:Constipation Start:03-Jul-2012 Instruction Type:Provider Instructions for Treatment Patient Instructions Indication:Acute sinusitis Start:22-Apr-2012 Instruction Type:Provider Instructions for Treatment [facility]; [facility] Work Phone: Instructions* Name Dates Details Patient Instructions Indication:Non-smoker Start:06-Feb-2022 Instruction Type:Provider Instructions for Treatment How to Access Health Informa tion Online using Patient Portal and [employer] Apps Indication:Non-smoker Start:06-Feb-2022 Instruction Type:Patient Education Patient Instructions Indication:Non-smoker Start:12-Jan-2022 Instruction Type:Provider Instructions for Treatment How to Access Health Informa tion Online using Patient Portal and [employer] Apps Indication:Non-smoker Start:12-Jan-2022 Instruction Type:Patient Education Patient Instructions Indication:BMI 29.0-29.9,adult Start:21-Sep-2021 Instruction Type:Provider Instructions for Treatment How to Access Health Informa tion Online using Patient Portal and [employer] Apps Indication:BMI 29.0-29.9,adult Start:21-Sep-2021 Instruction Type:Patient Education Patient Instructions Indication:BMI 29.0-29.9,adult Start:28-Jul-2021 Instruction Type:Provider Instructions for Treatment How to Access Health Informa tion Online using Patient Portal and [employer] Apps Indication:BMI 29.0-29.9,adult Start:28-Jul-2021 Instruction Type:Patient Education Patient Instructions Indication:Non-smoker Start:30-Jun-2021 Instruction Type:Provider Instructions for Treatment How to Access Health Informa tion Online using Patient Portal and [employer] Apps Indication:Non-smoker Start:30-Jun-2021 Instruction Type:Patient Education How to access health informa tion online Indication:BMI 27.0-27.9,adult Start:18-Feb-2020 Instruction Type:Patient Education How to access health informa tion online - Detail Indication:BMI 27.0-27.9,adult Start:18-Feb-2020 Instruction Type:Patient Education Patient Instructions Indication:BMI 27.0-27.9,adult Start:18-Feb-2020 Instruction Type:Provider Instructions for Treatment How to access health informa tion online Indication:Non-smoker Start:15-Jan-2020 Instruction Type:Patient Education How to access health informa tion online - Detail Indication:Non-smoker Start:15-Jan-2020 Instruction Type:Patient Education Patient Instructions Indication:Non-smoker Start:15-Jan-2020 Instruction Type:Provider Instructions for Treatment How to access health informa tion online Indication:Right foot pain Start:08-May-2019 Instruction Type:Patient Education How to access health informa tion online - Detail Indication:Right foot pain Start:08-May-2019 Instruction Type:Patient Education Patient Instructions Indication:Right foot pain Start:08-May-2019 Instruction Type:Provider Instructions for Treatment How to access health informa tion online Indication:Non-smoker Start:12-Mar-2019 Instruction Type:Patient Education How to access health informa tion online - Detail Indication:Non-smoker Start:12-Mar-2019 Instruction Type:Patient Education Patient Instructions Indication:Non-smoker Start:12-Mar-2019 Instruction Type:Provider Instructions for Treatment Patient Instructions Indication:Non-smoker Start:12-Mar-2019 Instruction Type:Provider Instructions for Treatment How to access health informa tion online Indication:BMI 27.0-27.9,adult Start:18-Jul-2018 Instruction Type:Patient Education How to access health informa tion online - Detail Indication:BMI 27.0-27.9,adult Start:18-Jul-2018 Instruction Type:Patient Education Patient Instructions Indication:Sinus pressure Start:18-Jul-2018 Instruction Type:Provider Instructions for Treatment How to access health informa tion online Indication:BMI 27.0-27.9,adult Start:24-Oct-2017 Instruction Type:Patient Education How to access health informa tion online - Detail Indication:BMI 27.0-27.9,adult Start:24-Oct-2017 Instruction Type:Patient Education Patient Instructions Indication:BMI 27.0-27.9,adult Start:24-Oct-2017 Instruction Type:Provider Instructions for Treatment How to access health informa tion online Indication:Non-smoker Start:28-Feb-2017 Instruction Type:Patient Education How to access health informa tion online - Detail Indication:Non-smoker Start:28-Feb-2017 Instruction Type:Patient Education Patient Instructions Indication:Non-smoker Start:28-Feb-2017 Instruction Type:Provider Instructions for Treatment How to access health informa tion online Indication:Flu-like symptoms Start:17-May-2016 Instruction Type:Patient Education How to access health informa tion online - Detail Indication:Flu-like symptoms Start:17-May-2016 Instruction Type:Patient Education Patient Instructions Indication:Flu-like symptoms Start:17-May-2016 Instruction Type:Provider Instructions for Treatment How to access health informa tion online Indication:Hypercholesteremia Start:03-Dec-2015 Instruction Type:Patient Education How to access health informa tion online - Detail Indication:Hypercholesteremia Start:03-Dec-2015 Instruction Type:Patient Education Patient Instructions Indication:Hypercholesteremia Start:03-Dec-2015 Instruction Type:Provider Instructions for Treatment How to access health informa tion online Indication:Hypercholesteremia Start:01-Nov-2015 Instruction Type:Patient Education How to access health informa tion online - Detail Indication:Hypercholesteremia Start:01-Nov-2015 Instruction Type:Patient Education Patient Instructions Indication:Hypercholesteremia Start:01-Nov-2015 Instruction Type:Provider Instructions for Treatment How to access health informa tion online Indication:Upper Respiratory Infection (Renamed from Infection of the upper respiratory tract) Start:18-Aug-2015 Instruction Type:Patient Education How to access health informa tion online - Detail Indication:Upper Respiratory Infection (Renamed from Infection of the upper respiratory tract) Start:18-Aug-2015 Instruction Type:Patient Education Patient Instructions Indication:Upper Respiratory Infection (Renamed from Infection of the upper respiratory tract) Start:18-Aug-2015 Instruction Type:Provider Instructions for Treatment Patient Instructions Indication:Upper Respiratory Infection (Renamed from Infection of the upper respiratory tract) Start:18-Sep-2014 Instruction Type:Provider Instructions for Treatment Patient Instructions Indication:Urinary frequency Start:22-Apr-2014 Instruction Type:Provider Instructions for Treatment Patient Instructions Indication:Urinary frequency Start:28-Jan-2014 Instruction Type:Provider Instructions for Treatment Patient Instructions Indication:Acute sinusitis Start:19-Jun-2013 Instruction Type:Provider Instructions for Treatment Patient Instructions Indication:Colitis due to Clostridium difficile (Renamed from C. difficile colitis) Start:21-Mar-2013 Instruction Type:Provider Instructions for Treatment Patient Instructions Indication:Diarrhea Start:17-Mar-2013 Instruction Type:Provider Instructions for Treatment Patient Instructions Indication:Diarrhea Start:17-Mar-2013 Instruction Type:Provider Instructions for Treatment Patient Instructions Indication:Urinary tract infection, site not specified Start:18-Feb-2013 Instruction Type:Provider Instructions for Treatment Patient Instructions Indication:Hypercholesteremia Start:27-Jan-2013 Instruction Type:Provider Instructions for Treatment Patient Instructions Indication:Constipation Start:16-Aug-2012 Instruction Type:Provider Instructions for Treatment Patient Instructions Indication:Constipation Start:03-Jul-2012 Instruction Type:Provider Instructions for Treatment Patient Instructions Indication:Acute sinusitis Start:22-Apr-2012 Instruction Type:Provider Instructions for Treatment [facility]; [facility] Work Phone: Instructions* Name Dates Details Patient Instructions Indication:Non-smoker Start:06-Feb-2022 Instruction Type:Provider Instructions for Treatment How to Access Health Informa tion Online using Patient Portal and [employer] Indication:Non-smoker Start:06-Feb-2022 Instruction Type:Patient Education Patient Instructions Indication:Non-smoker Start:12-Jan-2022 Instruction Type:Provider Instructions for Treatment How to Access Health Informa tion Online using Patient Portal and [employer]rd [employer] Apps Indication:Non-smoker Start:12-Jan-2022 Instruction Type:Patient Education Patient Instructions Indication:BMI 29.0-29.9,adult Start:21-Sep-2021 Instruction Type:Provider Instructions for Treatment How to Access Health Informa tion Online using Patient Portal and [employer]rd [employer] Apps Indication:BMI 29.0-29.9,adult Start:21-Sep-2021 Instruction Type:Patient Education Patient Instructions Indication:BMI 29.0-29.9,adult Start:28-Jul-2021 Instruction Type:Provider Instructions for Treatment How to Access Health Informa tion Online using Patient Portal and [employer]rd [employer] Apps Indication:BMI 29.0-29.9,adult Start:28-Jul-2021 Instruction Type:Patient Education Patient Instructions Indication:Non-smoker Start:30-Jun-2021 Instruction Type:Provider Instructions for Treatment How to Access Health Informa tion Online using Patient Portal and [employer]rd [employer] Apps Indication:Non-smoker Start:30-Jun-2021 Instruction Type:Patient Education How to access health informa tion online Indication:BMI 27.0-27.9,adult Start:18-Feb-2020 Instruction Type:Patient Education How to access health informa tion online - Detail Indication:BMI 27.0-27.9,adult Start:18-Feb-2020 Instruction Type:Patient Education Patient Instructions Indication:BMI 27.0-27.9,adult Start:18-Feb-2020 Instruction Type:Provider Instructions for Treatment How to access health informa tion online Indication:Non-smoker Start:15-Jan-2020 Instruction Type:Patient Education How to access health informa tion online - Detail Indication:Non-smoker Start:15-Jan-2020 Instruction Type:Patient Education Patient Instructions Indication:Non-smoker Start:15-Jan-2020 Instruction Type:Provider Instructions for Treatment How to access health informa tion online Indication:Right foot pain Start:08-May-2019 Instruction Type:Patient Education How to access health informa tion online - Detail Indication:Right foot pain Start:08-May-2019 Instruction Type:Patient Education Patient Instructions Indication:Right foot pain Start:08-May-2019 Instruction Type:Provider Instructions for Treatment How to access health informa tion online Indication:Non-smoker Start:12-Mar-2019 Instruction Type:Patient Education How to access health informa tion online - Detail Indication:Non-smoker Start:12-Mar-2019 Instruction Type:Patient Education Patient Instructions Indication:Non-smoker Start:12-Mar-2019 Instruction Type:Provider Instructions for Treatment Patient Instructions Indication:Non-smoker Start:12-Mar-2019 Instruction Type:Provider Instructions for Treatment How to access health informa tion online Indication:BMI 27.0-27.9,adult Start:18-Jul-2018 Instruction Type:Patient Education How to access health informa tion online - Detail Indication:BMI 27.0-27.9,adult Start:18-Jul-2018 Instruction Type:Patient Education Patient Instructions Indication:Sinus pressure Start:18-Jul-2018 Instruction Type:Provider Instructions for Treatment How to access health informa tion online Indication:BMI 27.0-27.9,adult Start:24-Oct-2017 Instruction Type:Patient Education How to access health informa tion online - Detail Indication:BMI 27.0-27.9,adult Start:24-Oct-2017 Instruction Type:Patient Education Patient Instructions Indication:BMI 27.0-27.9,adult Start:24-Oct-2017 Instruction Type:Provider Instructions for Treatment How to access health informa tion online Indication:Non-smoker Start:28-Feb-2017 Instruction Type:Patient Education How to access health informa tion online - Detail Indication:Non-smoker Start:28-Feb-2017 Instruction Type:Patient Education Patient Instructions Indication:Non-smoker Start:28-Feb-2017 Instruction Type:Provider Instructions for Treatment How to access health informa tion online Indication:Flu-like symptoms Start:17-May-2016 Instruction Type:Patient Education How to access health informa tion online - Detail Indication:Flu-like symptoms Start:17-May-2016 Instruction Type:Patient Education Patient Instructions Indication:Flu-like symptoms Start:17-May-2016 Instruction Type:Provider Instructions for Treatment How to access health informa tion online Indication:Hypercholesteremia Start:03-Dec-2015 Instruction Type:Patient Education How to access health informa tion online - Detail Indication:Hypercholesteremia Start:03-Dec-2015 Instruction Type:Patient Education Patient Instructions Indication:Hypercholesteremia Start:03-Dec-2015 Instruction Type:Provider Instructions for Treatment How to access health informa tion online Indication:Hypercholesteremia Start:01-Nov-2015 Instruction Type:Patient Education How to access health informa tion online - Detail Indication:Hypercholesteremia Start:01-Nov-2015 Instruction Type:Patient Education Patient Instructions Indication:Hypercholesteremia Start:01-Nov-2015 Instruction Type:Provider Instructions for Treatment How to access health informa tion online Indication:Upper Respiratory Infection (Renamed from Infection of the upper respiratory tract) Start:18-Aug-2015 Instruction Type:Patient Education How to access health informa tion online - Detail Indication:Upper Respiratory Infection (Renamed from Infection of the upper respiratory tract) Start:18-Aug-2015 Instruction Type:Patient Education Patient Instructions Indication:Upper Respiratory Infection (Renamed from Infection of the upper respiratory tract) Start:18-Aug-2015 Instruction Type:Provider Instructions for Treatment Patient Instructions Indication:Upper Respiratory Infection (Renamed from Infection of the upper respiratory tract) Start:18-Sep-2014 Instruction Type:Provider Instructions for Treatment Patient Instructions Indication:Urinary frequency Start:22-Apr-2014 Instruction Type:Provider Instructions for Treatment Patient Instructions Indication:Urinary frequency Start:28-Jan-2014 Instruction Type:Provider Instructions for Treatment Patient Instructions Indication:Acute sinusitis Start:19-Jun-2013 Instruction Type:Provider Instructions for Treatment Patient Instructions Indication:Colitis due to Clostridium difficile (Renamed from C. difficile colitis) Start:21-Mar-2013 Instruction Type:Provider Instructions for Treatment Patient Instructions Indication:Diarrhea Start:17-Mar-2013 Instruction Type:Provider Instructions for Treatment Patient Instructions Indication:Diarrhea Start:17-Mar-2013 Instruction Type:Provider Instructions for Treatment Patient Instructions Indication:Urinary tract infection, site not specified Start:18-Feb-2013 Instruction Type:Provider Instructions for Treatment Patient Instructions Indication:Hypercholesteremia Start:27-Jan-2013 Instruction Type:Provider Instructions for Treatment Patient Instructions Indication:Constipation Start:16-Aug-2012 Instruction Type:Provider Instructions for Treatment Patient Instructions Indication:Constipation Start:03-Jul-2012 Instruction Type:Provider Instructions for Treatment Patient Instructions Indication:Acute sinusitis Start:22-Apr-2012 Instruction Type:Provider Instructions for Treatment [facility]; [facility] Work Phone: Instructions* Name Dates Details Patient Instructions Indication:Non-smoker Start:06-Feb-2022 Instruction Type:Provider Instructions for Treatment How to Access Health Informa tion Online using Patient Portal and [employer]rd [employer] Apps Indication:Non-smoker Start:06-Feb-2022 Instruction Type:Patient Education Patient Instructions Indication:Non-smoker Start:12-Jan-2022 Instruction Type:Provider Instructions for Treatment How to Access Health Informa tion Online using Patient Portal and [employer] Apps Indication:Non-smoker Start:12-Jan-2022 Instruction Type:Patient Education Patient Instructions Indication:BMI 29.0-29.9,adult Start:21-Sep-2021 Instruction Type:Provider Instructions for Treatment How to Access Health Informa tion Online using Patient Portal and [employer] Apps Indication:BMI 29.0-29.9,adult Start:21-Sep-2021 Instruction Type:Patient Education Patient Instructions Indication:BMI 29.0-29.9,adult Start:28-Jul-2021 Instruction Type:Provider Instructions for Treatment How to Access Health Informa tion Online using Patient Portal and [employer]rd [employer] Apps Indication:BMI 29.0-29.9,adult Start:28-Jul-2021 Instruction Type:Patient Education Patient Instructions Indication:Non-smoker Start:30-Jun-2021 Instruction Type:Provider Instructions for Treatment How to Access Health Informa tion Online using Patient Portal and [employer] Apps Indication:Non-smoker Start:30-Jun-2021 Instruction Type:Patient Education How to access health informa tion online Indication:BMI 27.0-27.9,adult Start:18-Feb-2020 Instruction Type:Patient Education How to access health informa tion online - Detail Indication:BMI 27.0-27.9,adult Start:18-Feb-2020 Instruction Type:Patient Education Patient Instructions Indication:BMI 27.0-27.9,adult Start:18-Feb-2020 Instruction Type:Provider Instructions for Treatment How to access health informa tion online Indication:Non-smoker Start:15-Jan-2020 Instruction Type:Patient Education How to access health informa tion online - Detail Indication:Non-smoker Start:15-Jan-2020 Instruction Type:Patient Education Patient Instructions Indication:Non-smoker Start:15-Jan-2020 Instruction Type:Provider Instructions for Treatment How to access health informa tion online Indication:Right foot pain Start:08-May-2019 Instruction Type:Patient Education How to access health informa tion online - Detail Indication:Right foot pain Start:08-May-2019 Instruction Type:Patient Education Patient Instructions Indication:Right foot pain Start:08-May-2019 Instruction Type:Provider Instructions for Treatment How to access health informa tion online Indication:Non-smoker Start:12-Mar-2019 Instruction Type:Patient Education How to access health informa tion online - Detail Indication:Non-smoker Start:12-Mar-2019 Instruction Type:Patient Education Patient Instructions Indication:Non-smoker Start:12-Mar-2019 Instruction Type:Provider Instructions for Treatment Patient Instructions Indication:Non-smoker Start:12-Mar-2019 Instruction Type:Provider Instructions for Treatment How to access health informa tion online Indication:BMI 27.0-27.9,adult Start:18-Jul-2018 Instruction Type:Patient Education How to access health informa tion online - Detail Indication:BMI 27.0-27.9,adult Start:18-Jul-2018 Instruction Type:Patient Education Patient Instructions Indication:Sinus pressure Start:18-Jul-2018 Instruction Type:Provider Instructions for Treatment How to access health informa tion online Indication:BMI 27.0-27.9,adult Start:24-Oct-2017 Instruction Type:Patient Education How to access health informa tion online - Detail Indication:BMI 27.0-27.9,adult Start:24-Oct-2017 Instruction Type:Patient Education Patient Instructions Indication:BMI 27.0-27.9,adult Start:24-Oct-2017 Instruction Type:Provider Instructions for Treatment How to access health informa tion online Indication:Non-smoker Start:28-Feb-2017 Instruction Type:Patient Education How to access health informa tion online - Detail Indication:Non-smoker Start:28-Feb-2017 Instruction Type:Patient Education Patient Instructions Indication:Non-smoker Start:28-Feb-2017 Instruction Type:Provider Instructions for Treatment How to access health informa tion online Indication:Flu-like symptoms Start:17-May-2016 Instruction Type:Patient Education How to access health informa tion online - Detail Indication:Flu-like symptoms Start:17-May-2016 Instruction Type:Patient Education Patient Instructions Indication:Flu-like symptoms Start:17-May-2016 Instruction Type:Provider Instructions for Treatment How to access health informa tion online Indication:Hypercholesteremia Start:03-Dec-2015 Instruction Type:Patient Education How to access health informa tion online - Detail Indication:Hypercholesteremia Start:03-Dec-2015 Instruction Type:Patient Education Patient Instructions Indication:Hypercholesteremia Start:03-Dec-2015 Instruction Type:Provider Instructions for Treatment How to access health informa tion online Indication:Hypercholesteremia Start:01-Nov-2015 Instruction Type:Patient Education How to access health informa tion online - Detail Indication:Hypercholesteremia Start:01-Nov-2015 Instruction Type:Patient Education Patient Instructions Indication:Hypercholesteremia Start:01-Nov-2015 Instruction Type:Provider Instructions for Treatment How to access health informa tion online Indication:Upper Respiratory Infection (Renamed from Infection of the upper respiratory tract) Start:18-Aug-2015 Instruction Type:Patient Education How to access health informa tion online - Detail Indication:Upper Respiratory Infection (Renamed from Infection of the upper respiratory tract) Start:18-Aug-2015 Instruction Type:Patient Education Patient Instructions Indication:Upper Respiratory Infection (Renamed from Infection of the upper respiratory tract) Start:18-Aug-2015 Instruction Type:Provider Instructions for Treatment Patient Instructions Indication:Upper Respiratory Infection (Renamed from Infection of the upper respiratory tract) Start:18-Sep-2014 Instruction Type:Provider Instructions for Treatment Patient Instructions Indication:Urinary frequency Start:22-Apr-2014 Instruction Type:Provider Instructions for Treatment Patient Instructions Indication:Urinary frequency Start:28-Jan-2014 Instruction Type:Provider Instructions for Treatment Patient Instructions Indication:Acute sinusitis Start:19-Jun-2013 Instruction Type:Provider Instructions for Treatment Patient Instructions Indication:Colitis due to Clostridium difficile (Renamed from C. difficile colitis) Start:21-Mar-2013 Instruction Type:Provider Instructions for Treatment Patient Instructions Indication:Diarrhea Start:17-Mar-2013 Instruction Type:Provider Instructions for Treatment Patient Instructions Indication:Diarrhea Start:17-Mar-2013 Instruction Type:Provider Instructions for Treatment Patient Instructions Indication:Urinary tract infection, site not specified Start:18-Feb-2013 Instruction Type:Provider Instructions for Treatment Patient Instructions Indication:Hypercholesteremia Start:27-Jan-2013 Instruction Type:Provider Instructions for Treatment Patient Instructions Indication:Constipation Start:16-Aug-2012 Instruction Type:Provider Instructions for Treatment Patient Instructions Indication:Constipation Start:03-Jul-2012 Instruction Type:Provider Instructions for Treatment Patient Instructions Indication:Acute sinusitis Start:22-Apr-2012 Instruction Type:Provider Instructions for Treatment [facility]; [facility] Work Phone: Instructions* Name Dates Details Patient Instructions Indication:Non-smoker Start:06-Feb-2022 Instruction Type:Provider Instructions for Treatment How to Access Health Informa tion Online using Patient Portal and [employer]rd [employer] Apps Indication:Non-smoker Start:06-Feb-2022 Instruction Type:Patient Education Patient Instructions Indication:Non-smoker Start:12-Jan-2022 Instruction Type:Provider Instructions for Treatment How to Access Health Informa tion Online using Patient Portal and [employer]rd [employer] Apps Indication:Non-smoker Start:12-Jan-2022 Instruction Type:Patient Education Patient Instructions Indication:BMI 29.0-29.9,adult Start:21-Sep-2021 Instruction Type:Provider Instructions for Treatment How to Access Health Informa tion Online using Patient Portal and [employer]rd [employer] Apps Indication:BMI 29.0-29.9,adult Start:21-Sep-2021 Instruction Type:Patient Education Patient Instructions Indication:BMI 29.0-29.9,adult Start:28-Jul-2021 Instruction Type:Provider Instructions for Treatment How to Access Health Informa tion Online using Patient Portal and [employer]rd [employer] Apps Indication:BMI 29.0-29.9,adult Start:28-Jul-2021 Instruction Type:Patient Education Patient Instructions Indication:Non-smoker Start:30-Jun-2021 Instruction Type:Provider Instructions for Treatment How to Access Health Informa tion Online using Patient Portal and [employer]rd [employer] Apps Indication:Non-smoker Start:30-Jun-2021 Instruction Type:Patient Education How to access health informa tion online Indication:BMI 27.0-27.9,adult Start:18-Feb-2020 Instruction Type:Patient Education How to access health informa tion online - Detail Indication:BMI 27.0-27.9,adult Start:18-Feb-2020 Instruction Type:Patient Education Patient Instructions Indication:BMI 27.0-27.9,adult Start:18-Feb-2020 Instruction Type:Provider Instructions for Treatment How to access health informa tion online Indication:Non-smoker Start:15-Jan-2020 Instruction Type:Patient Education How to access health informa tion online - Detail Indication:Non-smoker Start:15-Jan-2020 Instruction Type:Patient Education Patient Instructions Indication:Non-smoker Start:15-Jan-2020 Instruction Type:Provider Instructions for Treatment How to access health informa tion online Indication:Right foot pain Start:08-May-2019 Instruction Type:Patient Education How to access health informa tion online - Detail Indication:Right foot pain Start:08-May-2019 Instruction Type:Patient Education Patient Instructions Indication:Right foot pain Start:08-May-2019 Instruction Type:Provider Instructions for Treatment How to access health informa tion online Indication:Non-smoker Start:12-Mar-2019 Instruction Type:Patient Education How to access health informa tion online - Detail Indication:Non-smoker Start:12-Mar-2019 Instruction Type:Patient Education Patient Instructions Indication:Non-smoker Start:12-Mar-2019 Instruction Type:Provider Instructions for Treatment Patient Instructions Indication:Non-smoker Start:12-Mar-2019 Instruction Type:Provider Instructions for Treatment How to access health informa tion online Indication:BMI 27.0-27.9,adult Start:18-Jul-2018 Instruction Type:Patient Education How to access health informa tion online - Detail Indication:BMI 27.0-27.9,adult Start:18-Jul-2018 Instruction Type:Patient Education Patient Instructions Indication:Sinus pressure Start:18-Jul-2018 Instruction Type:Provider Instructions for Treatment How to access health informa tion online Indication:BMI 27.0-27.9,adult Start:24-Oct-2017 Instruction Type:Patient Education How to access health informa tion online - Detail Indication:BMI 27.0-27.9,adult Start:24-Oct-2017 Instruction Type:Patient Education Patient Instructions Indication:BMI 27.0-27.9,adult Start:24-Oct-2017 Instruction Type:Provider Instructions for Treatment How to access health informa tion online Indication:Non-smoker Start:28-Feb-2017 Instruction Type:Patient Education How to access health informa tion online - Detail Indication:Non-smoker Start:28-Feb-2017 Instruction Type:Patient Education Patient Instructions Indication:Non-smoker Start:28-Feb-2017 Instruction Type:Provider Instructions for Treatment How to access health informa tion online Indication:Flu-like symptoms Start:17-May-2016 Instruction Type:Patient Education How to access health informa tion online - Detail Indication:Flu-like symptoms Start:17-May-2016 Instruction Type:Patient Education Patient Instructions Indication:Flu-like symptoms Start:17-May-2016 Instruction Type:Provider Instructions for Treatment How to access health informa tion online Indication:Hypercholesteremia Start:03-Dec-2015 Instruction Type:Patient Education How to access health informa tion online - Detail Indication:Hypercholesteremia Start:03-Dec-2015 Instruction Type:Patient Education Patient Instructions Indication:Hypercholesteremia Start:03-Dec-2015 Instruction Type:Provider Instructions for Treatment How to access health informa tion online Indication:Hypercholesteremia Start:01-Nov-2015 Instruction Type:Patient Education How to access health informa tion online - Detail Indication:Hypercholesteremia Start:01-Nov-2015 Instruction Type:Patient Education Patient Instructions Indication:Hypercholesteremia Start:01-Nov-2015 Instruction Type:Provider Instructions for Treatment How to access health informa tion online Indication:Upper Respiratory Infection (Renamed from Infection of the upper respiratory tract) Start:18-Aug-2015 Instruction Type:Patient Education How to access health informa tion online - Detail Indication:Upper Respiratory Infection (Renamed from Infection of the upper respiratory tract) Start:18-Aug-2015 Instruction Type:Patient Education Patient Instructions Indication:Upper Respiratory Infection (Renamed from Infection of the upper respiratory tract) Start:18-Aug-2015 Instruction Type:Provider Instructions for Treatment Patient Instructions Indication:Upper Respiratory Infection (Renamed from Infection of the upper respiratory tract) Start:18-Sep-2014 Instruction Type:Provider Instructions for Treatment Patient Instructions Indication:Urinary frequency Start:22-Apr-2014 Instruction Type:Provider Instructions for Treatment Patient Instructions Indication:Urinary frequency Start:28-Jan-2014 Instruction Type:Provider Instructions for Treatment Patient Instructions Indication:Acute sinusitis Start:19-Jun-2013 Instruction Type:Provider Instructions for Treatment Patient Instructions Indication:Colitis due to Clostridium difficile (Renamed from C. difficile colitis) Start:21-Mar-2013 Instruction Type:Provider Instructions for Treatment Patient Instructions Indication:Diarrhea Start:17-Mar-2013 Instruction Type:Provider Instructions for Treatment Patient Instructions Indication:Diarrhea Start:17-Mar-2013 Instruction Type:Provider Instructions for Treatment Patient Instructions Indication:Urinary tract infection, site not specified Start:18-Feb-2013 Instruction Type:Provider Instructions for Treatment Patient Instructions Indication:Hypercholesteremia Start:27-Jan-2013 Instruction Type:Provider Instructions for Treatment Patient Instructions Indication:Constipation Start:16-Aug-2012 Instruction Type:Provider Instructions for Treatment Patient Instructions Indication:Constipation Start:03-Jul-2012 Instruction Type:Provider Instructions for Treatment Patient Instructions Indication:Acute sinusitis Start:22-Apr-2012 Instruction Type:Provider Instructions for Treatment [facility]; [facility] Work Phone: Instructions* Name Dates Details Patient Instructions Indication:Non-smoker Start:12-Jan-2022 Instruction Type:Provider Instructions for Treatment How to Access Health Informa tion Online using Patient Portal and [employer] Apps Indication:Non-smoker Start:12-Jan-2022 Instruction Type:Patient Education Patient Instructions Indication:BMI 29.0-29.9,adult Start:21-Sep-2021 Instruction Type:Provider Instructions for Treatment How to Access Health Informa tion Online using Patient Portal and [employer]rd [employer] Apps Indication:BMI 29.0-29.9,adult Start:21-Sep-2021 Instruction Type:Patient Education Patient Instructions Indication:BMI 29.0-29.9,adult Start:28-Jul-2021 Instruction Type:Provider Instructions for Treatment How to Access Health Informa tion Online using Patient Portal and [employer]rd [employer] Apps Indication:BMI 29.0-29.9,adult Start:28-Jul-2021 Instruction Type:Patient Education Patient Instructions Indication:Non-smoker Start:30-Jun-2021 Instruction Type:Provider Instructions for Treatment How to Access Health Informa tion Online using Patient Portal and [employer] Apps Indication:Non-smoker Start:30-Jun-2021 Instruction Type:Patient Education How to access health informa tion online Indication:BMI 27.0-27.9,adult Start:18-Feb-2020 Instruction Type:Patient Education How to access health informa tion online - Detail Indication:BMI 27.0-27.9,adult Start:18-Feb-2020 Instruction Type:Patient Education Patient Instructions Indication:BMI 27.0-27.9,adult Start:18-Feb-2020 Instruction Type:Provider Instructions for Treatment How to access health informa tion online Indication:Non-smoker Start:15-Jan-2020 Instruction Type:Patient Education How to access health informa tion online - Detail Indication:Non-smoker Start:15-Jan-2020 Instruction Type:Patient Education Patient Instructions Indication:Non-smoker Start:15-Jan-2020 Instruction Type:Provider Instructions for Treatment How to access health informa tion online Indication:Right foot pain Start:08-May-2019 Instruction Type:Patient Education How to access health informa tion online - Detail Indication:Right foot pain Start:08-May-2019 Instruction Type:Patient Education Patient Instructions Indication:Right foot pain Start:08-May-2019 Instruction Type:Provider Instructions for Treatment How to access health informa tion online Indication:Non-smoker Start:12-Mar-2019 Instruction Type:Patient Education How to access health informa tion online - Detail Indication:Non-smoker Start:12-Mar-2019 Instruction Type:Patient Education Patient Instructions Indication:Non-smoker Start:12-Mar-2019 Instruction Type:Provider Instructions for Treatment Patient Instructions Indication:Non-smoker Start:12-Mar-2019 Instruction Type:Provider Instructions for Treatment How to access health informa tion online Indication:BMI 27.0-27.9,adult Start:18-Jul-2018 Instruction Type:Patient Education How to access health informa tion online - Detail Indication:BMI 27.0-27.9,adult Start:18-Jul-2018 Instruction Type:Patient Education Patient Instructions Indication:Sinus pressure Start:18-Jul-2018 Instruction Type:Provider Instructions for Treatment How to access health informa tion online Indication:BMI 27.0-27.9,adult Start:24-Oct-2017 Instruction Type:Patient Education How to access health informa tion online - Detail Indication:BMI 27.0-27.9,adult Start:24-Oct-2017 Instruction Type:Patient Education Patient Instructions Indication:BMI 27.0-27.9,adult Start:24-Oct-2017 Instruction Type:Provider Instructions for Treatment How to access health informa tion online Indication:Non-smoker Start:28-Feb-2017 Instruction Type:Patient Education How to access health informa tion online - Detail Indication:Non-smoker Start:28-Feb-2017 Instruction Type:Patient Education Patient Instructions Indication:Non-smoker Start:28-Feb-2017 Instruction Type:Provider Instructions for Treatment How to access health informa tion online Indication:Flu-like symptoms Start:17-May-2016 Instruction Type:Patient Education How to access health informa tion online - Detail Indication:Flu-like symptoms Start:17-May-2016 Instruction Type:Patient Education Patient Instructions Indication:Flu-like symptoms Start:17-May-2016 Instruction Type:Provider Instructions for Treatment How to access health informa tion online Indication:Hypercholesteremia Start:03-Dec-2015 Instruction Type:Patient Education How to access health informa tion online - Detail Indication:Hypercholesteremia Start:03-Dec-2015 Instruction Type:Patient Education Patient Instructions Indication:Hypercholesteremia Start:03-Dec-2015 Instruction Type:Provider Instructions for Treatment How to access health informa tion online Indication:Hypercholesteremia Start:01-Nov-2015 Instruction Type:Patient Education How to access health informa tion online - Detail Indication:Hypercholesteremia Start:01-Nov-2015 Instruction Type:Patient Education Patient Instructions Indication:Hypercholesteremia Start:01-Nov-2015 Instruction Type:Provider Instructions for Treatment How to access health informa tion online Indication:Upper Respiratory Infection (Renamed from Infection of the upper respiratory tract) Start:18-Aug-2015 Instruction Type:Patient Education How to access health informa tion online - Detail Indication:Upper Respiratory Infection (Renamed from Infection of the upper respiratory tract) Start:18-Aug-2015 Instruction Type:Patient Education Patient Instructions Indication:Upper Respiratory Infection (Renamed from Infection of the upper respiratory tract) Start:18-Aug-2015 Instruction Type:Provider Instructions for Treatment Patient Instructions Indication:Upper Respiratory Infection (Renamed from Infection of the upper respiratory tract) Start:18-Sep-2014 Instruction Type:Provider Instructions for Treatment Patient Instructions Indication:Urinary frequency Start:22-Apr-2014 Instruction Type:Provider Instructions for Treatment Patient Instructions Indication:Urinary frequency Start:28-Jan-2014 Instruction Type:Provider Instructions for Treatment Patient Instructions Indication:Acute sinusitis Start:19-Jun-2013 Instruction Type:Provider Instructions for Treatment Patient Instructions Indication:Colitis due to Clostridium difficile (Renamed from C. difficile colitis) Start:21-Mar-2013 Instruction Type:Provider Instructions for Treatment Patient Instructions Indication:Diarrhea Start:17-Mar-2013 Instruction Type:Provider Instructions for Treatment Patient Instructions Indication:Diarrhea Start:17-Mar-2013 Instruction Type:Provider Instructions for Treatment Patient Instructions Indication:Urinary tract infection, site not specified Start:18-Feb-2013 Instruction Type:Provider Instructions for Treatment Patient Instructions Indication:Hypercholesteremia Start:27-Jan-2013 Instruction Type:Provider Instructions for Treatment Patient Instructions Indication:Constipation Start:16-Aug-2012 Instruction Type:Provider Instructions for Treatment Patient Instructions Indication:Constipation Start:03-Jul-2012 Instruction Type:Provider Instructions for Treatment Patient Instructions Indication:Acute sinusitis Start:22-Apr-2012 Instruction Type:Provider Instructions for Treatment [facility]; [facility] Work Phone: Instructions* Name Dates Details Patient Instructions Indication:Non-smoker Start:11-Jan-2023 Instruction Type:Provider Instructions for Treatment How to Access Health Informa tion Online using Patient Portal and [employer]rd [employer] Apps Indication:Non-smoker Start:11-Jan-2023 Instruction Type:Patient Education Patient Instructions Indication:Non-smoker Start:12-Jan-2022 Instruction Type:Provider Instructions for Treatment How to Access Health Informa tion Online using Patient Portal and [employer]rd [employer] Apps Indication:Non-smoker Start:12-Jan-2022 Instruction Type:Patient Education Patient Instructions Indication:BMI 29.0-29.9,adult Start:21-Sep-2021 Instruction Type:Provider Instructions for Treatment How to Access Health Informa tion Online using Patient Portal and [employer]rd [employer] Apps Indication:BMI 29.0-29.9,adult Start:21-Sep-2021 Instruction Type:Patient Education Patient Instructions Indication:BMI 29.0-29.9,adult Start:28-Jul-2021 Instruction Type:Provider Instructions for Treatment How to Access Health Informa tion Online using Patient Portal and [employer]rd [employer] Apps Indication:BMI 29.0-29.9,adult Start:28-Jul-2021 Instruction Type:Patient Education Patient Instructions Indication:Non-smoker Start:30-Jun-2021 Instruction Type:Provider Instructions for Treatment How to Access Health Informa tion Online using Patient Portal and [employer]rd [employer] Apps Indication:Non-smoker Start:30-Jun-2021 Instruction Type:Patient Education How to access health informa tion online Indication:BMI 27.0-27.9,adult Start:18-Feb-2020 Instruction Type:Patient Education How to access health informa tion online - Detail Indication:BMI 27.0-27.9,adult Start:18-Feb-2020 Instruction Type:Patient Education Patient Instructions Indication:BMI 27.0-27.9,adult Start:18-Feb-2020 Instruction Type:Provider Instructions for Treatment How to access health informa tion online Indication:Non-smoker Start:15-Jan-2020 Instruction Type:Patient Education How to access health informa tion online - Detail Indication:Non-smoker Start:15-Jan-2020 Instruction Type:Patient Education Patient Instructions Indication:Non-smoker Start:15-Jan-2020 Instruction Type:Provider Instructions for Treatment How to access health informa tion online Indication:Right foot pain Start:08-May-2019 Instruction Type:Patient Education How to access health informa tion online - Detail Indication:Right foot pain Start:08-May-2019 Instruction Type:Patient Education Patient Instructions Indication:Right foot pain Start:08-May-2019 Instruction Type:Provider Instructions for Treatment How to access health informa tion online Indication:Non-smoker Start:12-Mar-2019 Instruction Type:Patient Education How to access health informa tion online - Detail Indication:Non-smoker Start:12-Mar-2019 Instruction Type:Patient Education Patient Instructions Indication:Non-smoker Start:12-Mar-2019 Instruction Type:Provider Instructions for Treatment Patient Instructions Indication:Non-smoker Start:12-Mar-2019 Instruction Type:Provider Instructions for Treatment How to access health informa tion online Indication:BMI 27.0-27.9,adult Start:18-Jul-2018 Instruction Type:Patient Education How to access health informa tion online - Detail Indication:BMI 27.0-27.9,adult Start:18-Jul-2018 Instruction Type:Patient Education Patient Instructions Indication:Sinus pressure Start:18-Jul-2018 Instruction Type:Provider Instructions for Treatment How to access health informa tion online Indication:BMI 27.0-27.9,adult Start:24-Oct-2017 Instruction Type:Patient Education How to access health informa tion online - Detail Indication:BMI 27.0-27.9,adult Start:24-Oct-2017 Instruction Type:Patient Education Patient Instructions Indication:BMI 27.0-27.9,adult Start:24-Oct-2017 Instruction Type:Provider Instructions for Treatment How to access health informa tion online Indication:Non-smoker Start:28-Feb-2017 Instruction Type:Patient Education How to access health informa tion online - Detail Indication:Non-smoker Start:28-Feb-2017 Instruction Type:Patient Education Patient Instructions Indication:Non-smoker Start:28-Feb-2017 Instruction Type:Provider Instructions for Treatment How to access health informa tion online Indication:Flu-like symptoms Start:17-May-2016 Instruction Type:Patient Education How to access health informa tion online - Detail Indication:Flu-like symptoms Start:17-May-2016 Instruction Type:Patient Education Patient Instructions Indication:Flu-like symptoms Start:17-May-2016 Instruction Type:Provider Instructions for Treatment How to access health informa tion online Indication:Hypercholesteremia Start:03-Dec-2015 Instruction Type:Patient Education How to access health informa tion online - Detail Indication:Hypercholesteremia Start:03-Dec-2015 Instruction Type:Patient Education Patient Instructions Indication:Hypercholesteremia Start:03-Dec-2015 Instruction Type:Provider Instructions for Treatment How to access health informa tion online Indication:Hypercholesteremia Start:01-Nov-2015 Instruction Type:Patient Education How to access health informa tion online - Detail Indication:Hypercholesteremia Start:01-Nov-2015 Instruction Type:Patient Education Patient Instructions Indication:Hypercholesteremia Start:01-Nov-2015 Instruction Type:Provider Instructions for Treatment How to access health informa tion online Indication:Upper Respiratory Infection (Renamed from Infection of the upper respiratory tract) Start:18-Aug-2015 Instruction Type:Patient Education How to access health informa tion online - Detail Indication:Upper Respiratory Infection (Renamed from Infection of the upper respiratory tract) Start:18-Aug-2015 Instruction Type:Patient Education Patient Instructions Indication:Upper Respiratory Infection (Renamed from Infection of the upper respiratory tract) Start:18-Aug-2015 Instruction Type:Provider Instructions for Treatment Patient Instructions Indication:Upper Respiratory Infection (Renamed from Infection of the upper respiratory tract) Start:18-Sep-2014 Instruction Type:Provider Instructions for Treatment Patient Instructions Indication:Urinary frequency Start:22-Apr-2014 Instruction Type:Provider Instructions for Treatment Patient Instructions Indication:Urinary frequency Start:28-Jan-2014 Instruction Type:Provider Instructions for Treatment Patient Instructions Indication:Acute sinusitis Start:19-Jun-2013 Instruction Type:Provider Instructions for Treatment Patient Instructions Indication:Colitis due to Clostridium difficile (Renamed from C. difficile colitis) Start:21-Mar-2013 Instruction Type:Provider Instructions for Treatment Patient Instructions Indication:Diarrhea Start:17-Mar-2013 Instruction Type:Provider Instructions for Treatment Patient Instructions Indication:Diarrhea Start:17-Mar-2013 Instruction Type:Provider Instructions for Treatment Patient Instructions Indication:Urinary tract infection, site not specified Start:18-Feb-2013 Instruction Type:Provider Instructions for Treatment Patient Instructions Indication:Hypercholesteremia Start:27-Jan-2013 Instruction Type:Provider Instructions for Treatment Patient Instructions Indication:Constipation Start:16-Aug-2012 Instruction Type:Provider Instructions for Treatment Patient Instructions Indication:Constipation Start:03-Jul-2012 Instruction Type:Provider Instructions for Treatment Patient Instructions Indication:Acute sinusitis Start:22-Apr-2012 Instruction Type:Provider Instructions for Treatment [facility]; [facility] Work Phone: Instructions* Name Dates Details Patient Instructions Indication:Non-smoker Start:19-Feb-2023 Instruction Type:Provider Instructions for Treatment How to Access Health Informa tion Online using Patient Portal and [employer] Apps Indication:Non-smoker Start:19-Feb-2023 Instruction Type:Patient Education Patient Instructions Indication:Non-smoker Start:11-Jan-2023 Instruction Type:Provider Instructions for Treatment How to Access Health Informa tion Online using Patient Portal and [employer] Apps Indication:Non-smoker Start:11-Jan-2023 Instruction Type:Patient Education Patient Instructions Indication:Non-smoker Start:12-Jan-2022 Instruction Type:Provider Instructions for Treatment How to Access Health Informa tion Online using Patient Portal and [employer] Apps Indication:Non-smoker Start:12-Jan-2022 Instruction Type:Patient Education Patient Instructions Indication:BMI 29.0-29.9,adult Start:21-Sep-2021 Instruction Type:Provider Instructions for Treatment How to Access Health Informa tion Online using Patient Portal and [employer] Apps Indication:BMI 29.0-29.9,adult Start:21-Sep-2021 Instruction Type:Patient Education Patient Instructions Indication:BMI 29.0-29.9,adult Start:28-Jul-2021 Instruction Type:Provider Instructions for Treatment How to Access Health Informa tion Online using Patient Portal and [employer] Apps Indication:BMI 29.0-29.9,adult Start:28-Jul-2021 Instruction Type:Patient Education Patient Instructions Indication:Non-smoker Start:30-Jun-2021 Instruction Type:Provider Instructions for Treatment How to Access Health Informa tion Online using Patient Portal and [employer] Apps Indication:Non-smoker Start:30-Jun-2021 Instruction Type:Patient Education How to access health informa tion online Indication:BMI 27.0-27.9,adult Start:18-Feb-2020 Instruction Type:Patient Education How to access health informa tion online - Detail Indication:BMI 27.0-27.9,adult Start:18-Feb-2020 Instruction Type:Patient Education Patient Instructions Indication:BMI 27.0-27.9,adult Start:18-Feb-2020 Instruction Type:Provider Instructions for Treatment How to access health informa tion online Indication:Non-smoker Start:15-Jan-2020 Instruction Type:Patient Education How to access health informa tion online - Detail Indication:Non-smoker Start:15-Jan-2020 Instruction Type:Patient Education Patient Instructions Indication:Non-smoker Start:15-Jan-2020 Instruction Type:Provider Instructions for Treatment How to access health informa tion online Indication:Right foot pain Start:08-May-2019 Instruction Type:Patient Education How to access health informa tion online - Detail Indication:Right foot pain Start:08-May-2019 Instruction Type:Patient Education Patient Instructions Indication:Right foot pain Start:08-May-2019 Instruction Type:Provider Instructions for Treatment How to access health informa tion online Indication:Non-smoker Start:12-Mar-2019 Instruction Type:Patient Education How to access health informa tion online - Detail Indication:Non-smoker Start:12-Mar-2019 Instruction Type:Patient Education Patient Instructions Indication:Non-smoker Start:12-Mar-2019 Instruction Type:Provider Instructions for Treatment Patient Instructions Indication:Non-smoker Start:12-Mar-2019 Instruction Type:Provider Instructions for Treatment How to access health informa tion online Indication:BMI 27.0-27.9,adult Start:18-Jul-2018 Instruction Type:Patient Education How to access health informa tion online - Detail Indication:BMI 27.0-27.9,adult Start:18-Jul-2018 Instruction Type:Patient Education Patient Instructions Indication:Sinus pressure Start:18-Jul-2018 Instruction Type:Provider Instructions for Treatment How to access health informa tion online Indication:BMI 27.0-27.9,adult Start:24-Oct-2017 Instruction Type:Patient Education How to access health informa tion online - Detail Indication:BMI 27.0-27.9,adult Start:24-Oct-2017 Instruction Type:Patient Education Patient Instructions Indication:BMI 27.0-27.9,adult Start:24-Oct-2017 Instruction Type:Provider Instructions for Treatment How to access health informa tion online Indication:Non-smoker Start:28-Feb-2017 Instruction Type:Patient Education How to access health informa tion online - Detail Indication:Non-smoker Start:28-Feb-2017 Instruction Type:Patient Education Patient Instructions Indication:Non-smoker Start:28-Feb-2017 Instruction Type:Provider Instructions for Treatment How to access health informa tion online Indication:Flu-like symptoms Start:17-May-2016 Instruction Type:Patient Education How to access health informa tion online - Detail Indication:Flu-like symptoms Start:17-May-2016 Instruction Type:Patient Education Patient Instructions Indication:Flu-like symptoms Start:17-May-2016 Instruction Type:Provider Instructions for Treatment How to access health informa tion online Indication:Hypercholesteremia Start:03-Dec-2015 Instruction Type:Patient Education How to access health informa tion online - Detail Indication:Hypercholesteremia Start:03-Dec-2015 Instruction Type:Patient Education Patient Instructions Indication:Hypercholesteremia Start:03-Dec-2015 Instruction Type:Provider Instructions for Treatment How to access health informa tion online Indication:Hypercholesteremia Start:01-Nov-2015 Instruction Type:Patient Education How to access health informa tion online - Detail Indication:Hypercholesteremia Start:01-Nov-2015 Instruction Type:Patient Education Patient Instructions Indication:Hypercholesteremia Start:01-Nov-2015 Instruction Type:Provider Instructions for Treatment How to access health informa tion online Indication:Upper Respiratory Infection (Renamed from Infection of the upper respiratory tract) Start:18-Aug-2015 Instruction Type:Patient Education How to access health informa tion online - Detail Indication:Upper Respiratory Infection (Renamed from Infection of the upper respiratory tract) Start:18-Aug-2015 Instruction Type:Patient Education Patient Instructions Indication:Upper Respiratory Infection (Renamed from Infection of the upper respiratory tract) Start:18-Aug-2015 Instruction Type:Provider Instructions for Treatment Patient Instructions Indication:Upper Respiratory Infection (Renamed from Infection of the upper respiratory tract) Start:18-Sep-2014 Instruction Type:Provider Instructions for Treatment Patient Instructions Indication:Urinary frequency Start:22-Apr-2014 Instruction Type:Provider Instructions for Treatment Patient Instructions Indication:Urinary frequency Start:28-Jan-2014 Instruction Type:Provider Instructions for Treatment Patient Instructions Indication:Acute sinusitis Start:19-Jun-2013 Instruction Type:Provider Instructions for Treatment Patient Instructions Indication:Colitis due to Clostridium difficile (Renamed from C. difficile colitis) Start:21-Mar-2013 Instruction Type:Provider Instructions for Treatment Patient Instructions Indication:Diarrhea Start:17-Mar-2013 Instruction Type:Provider Instructions for Treatment Patient Instructions Indication:Diarrhea Start:17-Mar-2013 Instruction Type:Provider Instructions for Treatment Patient Instructions Indication:Urinary tract infection, site not specified Start:18-Feb-2013 Instruction Type:Provider Instructions for Treatment Patient Instructions Indication:Hypercholesteremia Start:27-Jan-2013 Instruction Type:Provider Instructions for Treatment Patient Instructions Indication:Constipation Start:16-Aug-2012 Instruction Type:Provider Instructions for Treatment Patient Instructions Indication:Constipation Start:03-Jul-2012 Instruction Type:Provider Instructions for Treatment Patient Instructions Indication:Acute sinusitis Start:22-Apr-2012 Instruction Type:Provider Instructions for Treatment [facility]; [facility] Work Phone: Instructions* Name Dates Details Patient Instructions Indication:Non-smoker Start:19-Feb-2023 Instruction Type:Provider Instructions for Treatment How to Access Health Informa tion Online using Patient Portal and [employer] Apps Indication:Non-smoker Start:19-Feb-2023 Instruction Type:Patient Education Patient Instructions Indication:Non-smoker Start:11-Jan-2023 Instruction Type:Provider Instructions for Treatment How to Access Health Informa tion Online using Patient Portal and [employer]rd [employer] Apps Indication:Non-smoker Start:11-Jan-2023 Instruction Type:Patient Education Patient Instructions Indication:Non-smoker Start:12-Jan-2022 Instruction Type:Provider Instructions for Treatment How to Access Health Informa tion Online using Patient Portal and [employer]rd [employer] Apps Indication:Non-smoker Start:12-Jan-2022 Instruction Type:Patient Education Patient Instructions Indication:BMI 29.0-29.9,adult Start:21-Sep-2021 Instruction Type:Provider Instructions for Treatment How to Access Health Informa tion Online using Patient Portal and [employer]rd [employer] Apps Indication:BMI 29.0-29.9,adult Start:21-Sep-2021 Instruction Type:Patient Education Patient Instructions Indication:BMI 29.0-29.9,adult Start:28-Jul-2021 Instruction Type:Provider Instructions for Treatment How to Access Health Informa tion Online using Patient Portal and [employer]rd [employer] Apps Indication:BMI 29.0-29.9,adult Start:28-Jul-2021 Instruction Type:Patient Education Patient Instructions Indication:Non-smoker Start:30-Jun-2021 Instruction Type:Provider Instructions for Treatment How to Access Health Informa tion Online using Patient Portal and [employer]rd [employer] Apps Indication:Non-smoker Start:30-Jun-2021 Instruction Type:Patient Education How to access health informa tion online Indication:BMI 27.0-27.9,adult Start:18-Feb-2020 Instruction Type:Patient Education How to access health informa tion online - Detail Indication:BMI 27.0-27.9,adult Start:18-Feb-2020 Instruction Type:Patient Education Patient Instructions Indication:BMI 27.0-27.9,adult Start:18-Feb-2020 Instruction Type:Provider Instructions for Treatment How to access health informa tion online Indication:Non-smoker Start:15-Jan-2020 Instruction Type:Patient Education How to access health informa tion online - Detail Indication:Non-smoker Start:15-Jan-2020 Instruction Type:Patient Education Patient Instructions Indication:Non-smoker Start:15-Jan-2020 Instruction Type:Provider Instructions for Treatment How to access health informa tion online Indication:Right foot pain Start:08-May-2019 Instruction Type:Patient Education How to access health informa tion online - Detail Indication:Right foot pain Start:08-May-2019 Instruction Type:Patient Education Patient Instructions Indication:Right foot pain Start:08-May-2019 Instruction Type:Provider Instructions for Treatment How to access health informa tion online Indication:Non-smoker Start:12-Mar-2019 Instruction Type:Patient Education How to access health informa tion online - Detail Indication:Non-smoker Start:12-Mar-2019 Instruction Type:Patient Education Patient Instructions Indication:Non-smoker Start:12-Mar-2019 Instruction Type:Provider Instructions for Treatment Patient Instructions Indication:Non-smoker Start:12-Mar-2019 Instruction Type:Provider Instructions for Treatment How to access health informa tion online Indication:BMI 27.0-27.9,adult Start:18-Jul-2018 Instruction Type:Patient Education How to access health informa tion online - Detail Indication:BMI 27.0-27.9,adult Start:18-Jul-2018 Instruction Type:Patient Education Patient Instructions Indication:Sinus pressure Start:18-Jul-2018 Instruction Type:Provider Instructions for Treatment How to access health informa tion online Indication:BMI 27.0-27.9,adult Start:24-Oct-2017 Instruction Type:Patient Education How to access health informa tion online - Detail Indication:BMI 27.0-27.9,adult Start:24-Oct-2017 Instruction Type:Patient Education Patient Instructions Indication:BMI 27.0-27.9,adult Start:24-Oct-2017 Instruction Type:Provider Instructions for Treatment How to access health informa tion online Indication:Non-smoker Start:28-Feb-2017 Instruction Type:Patient Education How to access health informa tion online - Detail Indication:Non-smoker Start:28-Feb-2017 Instruction Type:Patient Education Patient Instructions Indication:Non-smoker Start:28-Feb-2017 Instruction Type:Provider Instructions for Treatment How to access health informa tion online Indication:Flu-like symptoms Start:17-May-2016 Instruction Type:Patient Education How to access health informa tion online - Detail Indication:Flu-like symptoms Start:17-May-2016 Instruction Type:Patient Education Patient Instructions Indication:Flu-like symptoms Start:17-May-2016 Instruction Type:Provider Instructions for Treatment How to access health informa tion online Indication:Hypercholesteremia Start:03-Dec-2015 Instruction Type:Patient Education How to access health informa tion online - Detail Indication:Hypercholesteremia Start:03-Dec-2015 Instruction Type:Patient Education Patient Instructions Indication:Hypercholesteremia Start:03-Dec-2015 Instruction Type:Provider Instructions for Treatment How to access health informa tion online Indication:Hypercholesteremia Start:01-Nov-2015 Instruction Type:Patient Education How to access health informa tion online - Detail Indication:Hypercholesteremia Start:01-Nov-2015 Instruction Type:Patient Education Patient Instructions Indication:Hypercholesteremia Start:01-Nov-2015 Instruction Type:Provider Instructions for Treatment How to access health informa tion online Indication:Upper Respiratory Infection (Renamed from Infection of the upper respiratory tract) Start:18-Aug-2015 Instruction Type:Patient Education How to access health informa tion online - Detail Indication:Upper Respiratory Infection (Renamed from Infection of the upper respiratory tract) Start:18-Aug-2015 Instruction Type:Patient Education Patient Instructions Indication:Upper Respiratory Infection (Renamed from Infection of the upper respiratory tract) Start:18-Aug-2015 Instruction Type:Provider Instructions for Treatment Patient Instructions Indication:Upper Respiratory Infection (Renamed from Infection of the upper respiratory tract) Start:18-Sep-2014 Instruction Type:Provider Instructions for Treatment Patient Instructions Indication:Urinary frequency Start:22-Apr-2014 Instruction Type:Provider Instructions for Treatment Patient Instructions Indication:Urinary frequency Start:28-Jan-2014 Instruction Type:Provider Instructions for Treatment Patient Instructions Indication:Acute sinusitis Start:19-Jun-2013 Instruction Type:Provider Instructions for Treatment Patient Instructions Indication:Colitis due to Clostridium difficile (Renamed from C. difficile colitis) Start:21-Mar-2013 Instruction Type:Provider Instructions for Treatment Patient Instructions Indication:Diarrhea Start:17-Mar-2013 Instruction Type:Provider Instructions for Treatment Patient Instructions Indication:Diarrhea Start:17-Mar-2013 Instruction Type:Provider Instructions for Treatment Patient Instructions Indication:Urinary tract infection, site not specified Start:18-Feb-2013 Instruction Type:Provider Instructions for Treatment Patient Instructions Indication:Hypercholesteremia Start:27-Jan-2013 Instruction Type:Provider Instructions for Treatment Patient Instructions Indication:Constipation Start:16-Aug-2012 Instruction Type:Provider Instructions for Treatment Patient Instructions Indication:Constipation Start:03-Jul-2012 Instruction Type:Provider Instructions for Treatment Patient Instructions Indication:Acute sinusitis Start:22-Apr-2012 Instruction Type:Provider Instructions for Treatment [facility] Work Phone: reason for referral (narrative)* Diagnostic Procedure Only (Routine) - Authorized Specialty Diagnoses / Procedures Referred By Contac t Referred To Contact BR IMAGING Diagnoses Abnormal mammogram with microcalcification Papilloma of left breast Procedures GABINO DIAGNOSTIC LT DIAGNOSTIC MAMMOGRAPHY [place] [address] [place] [address] Br Imaging [address] [place] [address] Referral ID Status Reason Start Date Expiration Date Visits Requested Visits Authorized [id number] Authorized Auto-Generat ed Referral 2 07/15/2023 1 1 [facility] for referral (narrative)* Diagnostic Procedure Only (Routine) - Authorized Specialty Diagnoses / Procedures Referred By Contac t Referred To Contact XR IMAGING Diagnoses Pain Procedures XR SHOULDER GENERAL 3V OR MORE AP/TRUE AP/OTHER LEFT RADEX SHOULDER COMPLETE MINIMUM 2 VIEWS Mikayla Keller PA-C [address] [place], [place] [id number] Xr Imaging Referral ID Status Reason Start Date Expiration Date Visits Requested Visits Authorized [id number] Authorized Auto-Generat ed Referral 11/20/2022 12/20/2023 1 1 [facility] for referral (narrative)* Diagnostic Procedure Only (Routine) - Authorized Specialty Diagnoses / Procedures Referred By Contac t Referred To Contact BR IMAGING Diagnoses Abnormal finding on breast imaging Procedures GABINO STEREO BX BREAST RIGHT BX BREAST W/DEVICE [facility] Alison Benitez MD [address] [place] [address] Br Imaging [address] [place] [address] Referral ID Status Reason Start Date Expiration Date Visits Requested Visits Authorized [id number] Authorized Auto-Generat ed Referral 03/30/2023 04/28/2024 1 1 [facility] for referral (narrative)* Diagnostic Procedure Only (Routine) - Closed Specialty Diagnoses / Procedures Referred By Contac t Referred To Contact XR IMAGING Diagnoses Pain Procedures XR SHOULDER GENERAL 3V OR MORE AP/TRUE AP/OTHER LEFT RADEX SHOULDER COMPLETE MINIMUM 2 VIEWS Mikayla Keller PA-C [address] [place], [place] [id number] Xr Imaging [id number] Referral ID Status Reason Start Date Expiration Date V isits Requested Visits Authorized [id number] Closed Auto-Generate d Referral 11/20/2022 12/20/2023 1 1 [facility] for referral (narrative)* Diagnostic Procedure Only (Routine) - Closed Specialty Diagnoses / Procedures Referred By Contac t Referred To Contact BR IMAGING Diagnoses Abnormal finding on breast imaging Procedures GABINO STEREO BX BREAST RIGHT BX BREAST W/DEVICE [facility] Alison Benitez MD [address] [place] [address] Br Imaging [address] [place] [phone] Referral ID Status Reason Start Date Expiration Date V isits Requested Visits Authorized [id number] Closed Auto-Generate d Referral 03/30/2023 04/28/2024 1 1 [facility] for visit Narrative* Diagnostic Procedure Only (Routine) - Closed Specialty Diagnoses / Procedures Referred By Contac t Referred To Contact XR IMAGING Diagnoses Pain Procedures XR SHOULDER GENERAL 3V OR MORE AP/TRUE AP/OTHER LEFT RADEX SHOULDER COMPLETE MINIMUM 2 VIEWS Mikayla Keller PA-C [address] [place] [address] Xr Imaging [place] [id number] Referral ID Status Reason Start Date Expiration Date V isits Requested Visits Authorized [id number] Closed Auto-Generate d Referral 11/20/2022 12/20/2023 1 1 [facility] for visit Narrative* Diagnostic Procedure Only (Routine) - Closed Specialty Diagnoses / Procedures Referred By Contac t Referred To Contact BR IMAGING Diagnoses Abnormal finding on breast imaging Procedures GABINO STEREO BX BREAST RIGHT BX BREAST W/DEVICE [facility] Alison Benitez MD [address] [place] [address] Br Imaging [address] [place] [phone] Referral ID Status Reason Start Date Expiration Date V isits Requested Visits Authorized [id number] Closed Auto-Generate d Referral 03/30/2023 04/28/2024 1 1 [facility] for visit Narrative* Diagnostic Procedure Only (Routine) - Closed Specialty Diagnoses / Procedures Referred By Contac t Referred To Contact BR IMAGING Diagnoses Abnormal mammogram with microcalcification Papilloma of left breast Procedures GABINO DIAGNOSTIC LT DIAGNOSTIC MAMMOGRAPHY COMPUTER-AIDED DETCJ ZAHRA Gianna Jensen [address] [place] [address] [facility] Imaging [address] [place] [address] Referral ID Status Reason Start Date Expiration Date V isits Requested Visits Authorized [id number] Closed Auto-Generate d Referral 06/15/2022 07/15/2023 1 1 [facility] Summary Purpose Family History No Family History Records FoundUnknown Family Member Name Dates Details Brother 1 Comments:In good health Status:Active Brother 2 Comments:In good health Status:Active Father Comments:In good health-hype rlipidemia Status:Active Mother Comments:In good health-hype rlipidemia Status:Active Unknown Family Member Name Dates Details Brother 1 Comments:In good health Status:Active Brother 2 Comments:In good health Status:Active Father Comments:In good health-hype rlipidemia Status:Active Mother Comments:In good health-hype rlipidemia Status:Active Unknown Family Member Name Dates Details Brother 1 Comments:In good health Status:Active Brother 2 Comments:In good health Status:Active Father Comments:In good health-hype rlipidemia Status:Active Mother Comments:In good health-hype rlipidemia Status:Active Unknown Family Member Name Dates Details Brother 1 Comments:In good health Status:Active Brother 2 Comments:In good health Status:Active Father Comments:In good health-hype rlipidemia Status:Active Mother Comments:In good health-hype rlipidemia Status:Active Unknown Family Member Name Dates Details Brother 1 Comments:In good health Status:Active Brother 2 Comments:In good health Status:Active Father Comments:In good health-hype rlipidemia Status:Active Mother Comments:In good health-hype rlipidemia Status:Active Unknown Family Member Name Dates Details Brother 1 Comments:In good health Status:Active Brother 2 Comments:In good health Status:Active Father Comments:In good health-hype rlipidemia Status:Active Mother Comments:In good health-hype rlipidemia Status:Active Unknown Family Member Name Dates Details Brother 1 Comments:In good health Status:Active Brother 2 Comments:In good health Status:Active Father Comments:In good health-hype rlipidemia Status:Active Mother Comments:In good health-hype rlipidemia Status:Active Unknown Family Member Name Dates Details Brother 1 Comments:In good health Status:Active Brother 2 Comments:In good health Status:Active Father Comments:In good health-hype rlipidemia Status:Active Mother Comments:In good health-hype rlipidemia Status:Active Unknown Family Member Name Dates Details Brother 1 Comments:In good health Status:Active Brother 2 Comments:In good health Status:Active Father Comments:In good health-hype rlipidemia Status:Active Mother Comments:In good health-hype rlipidemia Status:Active Unknown Family Member Name Dates Details Brother 1 Comments:In good health Status:Active Brother 2 Comments:In good health Status:Active Father Comments:In good health-hype rlipidemia Status:Active Mother Comments:In good health-hype rlipidemia Status:Active Unknown Family Member Name Dates Details Brother 1 Comments:In good health Status:Active Brother 2 Comments:In good health Status:Active Father Comments:In good health-hype rlipidemia Status:Active Mother Comments:In good health-hype rlipidemia Status:Active Unknown Family Member Name Dates Details Brother 1 Comments:In good health Status:Active Brother 2 Comments:In good health Status:Active Father Comments:In good health-hype rlipidemia Status:Active Mother Comments:In good health-hype rlipidemia Status:Active Unknown Family Member Name Dates Details Brother 1 Comments:In good health Status:Active Brother 2 Comments:In good health Status:Active Father Comments:In good health-hype rlipidemia Status:Active Mother Comments:In good health-hype rlipidemia Status:Active Unknown Family Member Name Dates Details Brother 1 Comments:In good health Status:Active Brother 2 Comments:In good health Status:Active Father Comments:In good health-hype rlipidemia Status:Active Mother Comments:In good health-hype rlipidemia Status:Active Unknown Family Member Name Dates Details Brother 1 Comments:In good health Status:Active Brother 2 Comments:In good health Status:Active Father Comments:In good health-hype rlipidemia Status:Active Mother Comments:In good health-hype rlipidemia Status:Active Unknown Family Member Name Dates Details Brother 1 Comments:In good health Status:Active Brother 2 Comments:In good health Status:Active Father Comments:In good health-hype rlipidemia Status:Active Mother Comments:In good health-hype rlipidemia Status:Active Unknown Family Member Name Dates Details Brother 1 Comments:In good health Status:Active Brother 2 Comments:In good health Status:Active Father Comments:In good health-hype rlipidemia Status:Active Mother Comments:In good health-hype rlipidemia Status:Active Unknown Family Member Name Dates Details Brother 1 Comments:In good health Status:Active Brother 2 Comments:In good health Status:Active Father Comments:In good health-hype rlipidemia Status:Active Mother Comments:In good health-hype rlipidemia Status:Active Unknown Family Member Name Dates Details Brother 1 Comments:In good health Status:Active Brother 2 Comments:In good health Status:Active Father Comments:In good health-hype rlipidemia Status:Active Mother Comments:In good health-hype rlipidemia Status:Active Unknown Family Member Name Dates Details Brother 1 Comments:In good health Status:Active Brother 2 Comments:In good health Status:Active Father Comments:In good health-hype rlipidemia Status:Active Mother Comments:In good health-hype rlipidemia Status:Active Unknown Family Member Name Dates Details Brother 1 Comments:In good health Status:Active Brother 2 Comments:In good health Status:Active Father Comments:In good health-hype rlipidemia Status:Active Mother Comments:In good health-hype rlipidemia Status:Active Unknown Family Member Name Dates Details Brother 1 Comments:In good health Status:Active Brother 2 Comments:In good health Status:Active Father Comments:In good health-hype rlipidemia Status:Active Mother Comments:In good health-hype rlipidemia Status:Active Unknown Family Member Name Dates Details Brother 1 Comments:In good health Status:Active Brother 2 Comments:In good health Status:Active Father Comments:In good health-hype rlipidemia Status:Active Mother Comments:In good health-hype rlipidemia Status:Active Unknown Family Member Name Dates Details Brother 1 Comments:In good health Status:Active Brother 2 Comments:In good health Status:Active Father Comments:In good health-hype rlipidemia Status:Active Mother Comments:In good health-hype rlipidemia Status:Active Unknown Family Member Name Dates Details Brother 1 Comments:In good health Status:Active Brother 2 Comments:In good health Status:Active Father Comments:In good health-hype rlipidemia Status:Active Mother Comments:In good health-hype rlipidemia Status:Active Unknown Family Member Name Dates Details Brother 1 Comments:In good health Status:Active Brother 2 Comments:In good health Status:Active Father Comments:In good health-hype rlipidemia Status:Active Mother Comments:In good health-hype rlipidemia Status:Active Unknown Family Member Name Dates Details Brother 1 Comments:In good health Status:Active Brother 2 Comments:In good health Status:Active Father Comments:In good health-hype rlipidemia Status:Active Mother Comments:In good health-hype rlipidemia Status:Active Advance Directives No Advanced Directives Records FoundDocuments on File Type Date Recorded Patient Data Control Clerk Supervisor Expl anation Advance Directive(s) 10/10/2016 8:21 AM Documents on File Type Date Recorded Patient Data Control Clerk Supervisor Expl anation Advance Directive(s) 10/10/2016 8:21 AM Advance Directive Response Recorded Date/ Time Living Will No October 29, 2018 9:27pm Power of Offset Duplicating Machine Operator No October 29 9 9:27pm Advance Directive Response Recorded Date/ Time Living Will No October 29, 2018 8:27pm Power of Offset Duplicating Machine Operator No October 29 9 8:27pm Instructions Name Dates Details BMI 27.0-27.9,adult : How to access health information online Indication:BMI 27.0-27.9,adult BMI 27.0-27.9,adult : How to access health information online - Detail Indication:BMI 27.0-27.9,adult Sinus pressure : Patient Ins tructions Indication:Sinus pressure BMI 27.0-27.9,adult : Patien t Instructions Indication:BMI 27.0-27.9,adult Non-smoker : How to access h ealth information online Indication:Non-smoker Non-smoker : How to access h ealth information online - Detail Indication:Non-smoker Non-smoker : Patient Instruc tions Indication:Non-smoker Flu-like symptoms : How to a ccess health information online Indication:Flu-like symptoms Flu-like symptoms : How to a ccess health information online - Detail Indication:Flu-like symptoms Flu-like symptoms : Patient Instructions Indication:Flu-like symptoms Hypercholesteremia : How to access health information online Indication:Hypercholesteremia Hypercholesteremia : How to access health information online - Detail Indication:Hypercholesteremia Hypercholesteremia : Patient Instructions Indication:Hypercholesteremia Upper Respiratory Infection (Renamed from Infection of the upper respiratory tract) : How to access health information online Indication:Upper Respiratory Infection (Renamed from Infection of the upper respiratory tract) Upper Respiratory Infection (Renamed from Infection of the upper respiratory tract) : How to access health information online - Detail Indication:Upper Respiratory Infection (Renamed from Infection of the upper respiratory tract) Upper Respiratory Infection (Renamed from Infection of the upper respiratory tract) : Patient Instructions Indication:Upper Respiratory Infection (Renamed from Infection of the upper respiratory tract) Urinary frequency : Patient Instructions Indication:Urinary frequency Acute sinusitis : Patient In structions Indication:Acute sinusitis Colitis due to Clostridium d ifficile (Renamed from C. difficile colitis) : Patient Instructions Indication:Colitis due to Clostridium difficile (Renamed from C. difficile colitis) Diarrhea : Patient Instructi ons Indication:Diarrhea Urinary tract infection, sit e not specified : Patient Instructions Indication:Urinary tract infection, site not specified Constipation : Patient Instr uctions Indication:Constipation Name Dates Details How to access health informa tion online Indication:BMI 27.0-27.9,adult Start:18-Jul-2018 Instruction Type:Patient Education How to access health informa tion online - Detail Indication:BMI 27.0-27.9,adult Start:18-Jul-2018 Instruction Type:Patient Education Patient Instructions Indication:Sinus pressure Start:18-Jul-2018 Instruction Type:Provider Instructions for Treatment How to access health informa tion online Indication:BMI 27.0-27.9,adult Start:24-Oct-2017 Instruction Type:Patient Education How to access health informa tion online - Detail Indication:BMI 27.0-27.9,adult Start:24-Oct-2017 Instruction Type:Patient Education Patient Instructions Indication:BMI 27.0-27.9,adult Start:24-Oct-2017 Instruction Type:Provider Instructions for Treatment How to access health informa tion online Indication:Non-smoker Start:28-Feb-2017 Instruction Type:Patient Education How to access health informa tion online - Detail Indication:Non-smoker Start:28-Feb-2017 Instruction Type:Patient Education Patient Instructions Indication:Non-smoker Start:28-Feb-2017 Instruction Type:Provider Instructions for Treatment How to access health informa tion online Indication:Flu-like symptoms Start:17-May-2016 Instruction Type:Patient Education How to access health informa tion online - Detail Indication:Flu-like symptoms Start:17-May-2016 Instruction Type:Patient Education Patient Instructions Indication:Flu-like symptoms Start:17-May-2016 Instruction Type:Provider Instructions for Treatment How to access health informa tion online Indication:Hypercholesteremia Start:03-Dec-2015 Instruction Type:Patient Education How to access health informa tion online - Detail Indication:Hypercholesteremia Start:03-Dec-2015 Instruction Type:Patient Education Patient Instructions Indication:Hypercholesteremia Start:03-Dec-2015 Instruction Type:Provider Instructions for Treatment How to access health informa tion online Indication:Hypercholesteremia Start:01-Nov-2015 Instruction Type:Patient Education How to access health informa tion online - Detail Indication:Hypercholesteremia Start:01-Nov-2015 Instruction Type:Patient Education Patient Instructions Indication:Hypercholesteremia Start:01-Nov-2015 Instruction Type:Provider Instructions for Treatment How to access health informa tion online Indication:Upper Respiratory Infection (Renamed from Infection of the upper respiratory tract) Start:18-Aug-2015 Instruction Type:Patient Education How to access health informa tion online - Detail Indication:Upper Respiratory Infection (Renamed from Infection of the upper respiratory tract) Start:18-Aug-2015 Instruction Type:Patient Education Patient Instructions Indication:Upper Respiratory Infection (Renamed from Infection of the upper respiratory tract) Start:18-Aug-2015 Instruction Type:Provider Instructions for Treatment Patient Instructions Indication:Upper Respiratory Infection (Renamed from Infection of the upper respiratory tract) Start:18-Sep-2014 Instruction Type:Provider Instructions for Treatment Patient Instructions Indication:Urinary frequency Start:22-Apr-2014 Instruction Type:Provider Instructions for Treatment Patient Instructions Indication:Urinary frequency Start:28-Jan-2014 Instruction Type:Provider Instructions for Treatment Patient Instructions Indication:Acute sinusitis Start:19-Jun-2013 Instruction Type:Provider Instructions for Treatment Patient Instructions Indication:Colitis due to Clostridium difficile (Renamed from C. difficile colitis) Start:21-Mar-2013 Instruction Type:Provider Instructions for Treatment Patient Instructions Indication:Diarrhea Start:17-Mar-2013 Instruction Type:Provider Instructions for Treatment Patient Instructions Indication:Urinary tract infection, site not specified Start:18-Feb-2013 Instruction Type:Provider Instructions for Treatment Patient Instructions Indication:Hypercholesteremia Start:27-Jan-2013 Instruction Type:Provider Instructions for Treatment Patient Instructions Indication:Constipation Start:16-Aug-2012 Instruction Type:Provider Instructions for Treatment Patient Instructions Indication:Constipation Start:03-Jul-2012 Instruction Type:Provider Instructions for Treatment Patient Instructions Indication:Acute sinusitis Start:22-Apr-2012 Instruction Type:Provider Instructions for Treatment Name Dates Details How to access health informa tion online Indication:Non-smoker Start:12-Mar-2019 Instruction Type:Patient Education How to access health informa tion online - Detail Indication:Non-smoker Start:12-Mar-2019 Instruction Type:Patient Education Patient Instructions Indication:Non-smoker Start:12-Mar-2019 Instruction Type:Provider Instructions for Treatment How to access health informa tion online Indication:BMI 27.0-27.9,adult Start:18-Jul-2018 Instruction Type:Patient Education How to access health informa tion online - Detail Indication:BMI 27.0-27.9,adult Start:18-Jul-2018 Instruction Type:Patient Education Patient Instructions Indication:Sinus pressure Start:18-Jul-2018 Instruction Type:Provider Instructions for Treatment How to access health informa tion online Indication:BMI 27.0-27.9,adult Start:24-Oct-2017 Instruction Type:Patient Education How to access health informa tion online - Detail Indication:BMI 27.0-27.9,adult Start:24-Oct-2017 Instruction Type:Patient Education Patient Instructions Indication:BMI 27.0-27.9,adult Start:24-Oct-2017 Instruction Type:Provider Instructions for Treatment How to access health informa tion online Indication:Non-smoker Start:28-Feb-2017 Instruction Type:Patient Education How to access health informa tion online - Detail Indication:Non-smoker Start:28-Feb-2017 Instruction Type:Patient Education Patient Instructions Indication:Non-smoker Start:28-Feb-2017 Instruction Type:Provider Instructions for Treatment How to access health informa tion online Indication:Flu-like symptoms Start:17-May-2016 Instruction Type:Patient Education How to access health informa tion online - Detail Indication:Flu-like symptoms Start:17-May-2016 Instruction Type:Patient Education Patient Instructions Indication:Flu-like symptoms Start:17-May-2016 Instruction Type:Provider Instructions for Treatment How to access health informa tion online Indication:Hypercholesteremia Start:03-Dec-2015 Instruction Type:Patient Education How to access health informa tion online - Detail Indication:Hypercholesteremia Start:03-Dec-2015 Instruction Type:Patient Education Patient Instructions Indication:Hypercholesteremia Start:03-Dec-2015 Instruction Type:Provider Instructions for Treatment How to access health informa tion online Indication:Hypercholesteremia Start:01-Nov-2015 Instruction Type:Patient Education How to access health informa tion online - Detail Indication:Hypercholesteremia Start:01-Nov-2015 Instruction Type:Patient Education Patient Instructions Indication:Hypercholesteremia Start:01-Nov-2015 Instruction Type:Provider Instructions for Treatment How to access health informa tion online Indication:Upper Respiratory Infection (Renamed from Infection of the upper respiratory tract) Start:18-Aug-2015 Instruction Type:Patient Education How to access health informa tion online - Detail Indication:Upper Respiratory Infection (Renamed from Infection of the upper respiratory tract) Start:18-Aug-2015 Instruction Type:Patient Education Patient Instructions Indication:Upper Respiratory Infection (Renamed from Infection of the upper respiratory tract) Start:18-Aug-2015 Instruction Type:Provider Instructions for Treatment Patient Instructions Indication:Upper Respiratory Infection (Renamed from Infection of the upper respiratory tract) Start:18-Sep-2014 Instruction Type:Provider Instructions for Treatment Patient Instructions Indication:Urinary frequency Start:22-Apr-2014 Instruction Type:Provider Instructions for Treatment Patient Instructions Indication:Urinary frequency Start:28-Jan-2014 Instruction Type:Provider Instructions for Treatment Patient Instructions Indication:Acute sinusitis Start:19-Jun-2013 Instruction Type:Provider Instructions for Treatment Patient Instructions Indication:Colitis due to Clostridium difficile (Renamed from C. difficile colitis) Start:21-Mar-2013 Instruction Type:Provider Instructions for Treatment Patient Instructions Indication:Diarrhea Start:17-Mar-2013 Instruction Type:Provider Instructions for Treatment Patient Instructions Indication:Urinary tract infection, site not specified Start:18-Feb-2013 Instruction Type:Provider Instructions for Treatment Patient Instructions Indication:Hypercholesteremia Start:27-Jan-2013 Instruction Type:Provider Instructions for Treatment Patient Instructions Indication:Constipation Start:16-Aug-2012 Instruction Type:Provider Instructions for Treatment Patient Instructions Indication:Constipation Start:03-Jul-2012 Instruction Type:Provider Instructions for Treatment Patient Instructions Indication:Acute sinusitis Start:22-Apr-2012 Instruction Type:Provider Instructions for Treatment Name Dates Details How to access health informa tion online Indication:Right foot pain Start:08-May-2019 Instruction Type:Patient Education How to access health informa tion online - Detail Indication:Right foot pain Start:08-May-2019 Instruction Type:Patient Education Patient Instructions Indication:Right foot pain Start:08-May-2019 Instruction Type:Provider Instructions for Treatment How to access health informa tion online Indication:Non-smoker Start:12-Mar-2019 Instruction Type:Patient Education How to access health informa tion online - Detail Indication:Non-smoker Start:12-Mar-2019 Instruction Type:Patient Education Patient Instructions Indication:Non-smoker Start:12-Mar-2019 Instruction Type:Provider Instructions for Treatment How to access health informa tion online Indication:BMI 27.0-27.9,adult Start:18-Jul-2018 Instruction Type:Patient Education How to access health informa tion online - Detail Indication:BMI 27.0-27.9,adult Start:18-Jul-2018 Instruction Type:Patient Education Patient Instructions Indication:Sinus pressure Start:18-Jul-2018 Instruction Type:Provider Instructions for Treatment How to access health informa tion online Indication:BMI 27.0-27.9,adult Start:24-Oct-2017 Instruction Type:Patient Education How to access health informa tion online - Detail Indication:BMI 27.0-27.9,adult Start:24-Oct-2017 Instruction Type:Patient Education Patient Instructions Indication:BMI 27.0-27.9,adult Start:24-Oct-2017 Instruction Type:Provider Instructions for Treatment How to access health informa tion online Indication:Non-smoker Start:28-Feb-2017 Instruction Type:Patient Education How to access health informa tion online - Detail Indication:Non-smoker Start:28-Feb-2017 Instruction Type:Patient Education Patient Instructions Indication:Non-smoker Start:28-Feb-2017 Instruction Type:Provider Instructions for Treatment How to access health informa tion online Indication:Flu-like symptoms Start:17-May-2016 Instruction Type:Patient Education How to access health informa tion online - Detail Indication:Flu-like symptoms Start:17-May-2016 Instruction Type:Patient Education Patient Instructions Indication:Flu-like symptoms Start:17-May-2016 Instruction Type:Provider Instructions for Treatment How to access health informa tion online Indication:Hypercholesteremia Start:03-Dec-2015 Instruction Type:Patient Education How to access health informa tion online - Detail Indication:Hypercholesteremia Start:03-Dec-2015 Instruction Type:Patient Education Patient Instructions Indication:Hypercholesteremia Start:03-Dec-2015 Instruction Type:Provider Instructions for Treatment How to access health informa tion online Indication:Hypercholesteremia Start:01-Nov-2015 Instruction Type:Patient Education How to access health informa tion online - Detail Indication:Hypercholesteremia Start:01-Nov-2015 Instruction Type:Patient Education Patient Instructions Indication:Hypercholesteremia Start:01-Nov-2015 Instruction Type:Provider Instructions for Treatment How to access health informa tion online Indication:Upper Respiratory Infection (Renamed from Infection of the upper respiratory tract) Start:18-Aug-2015 Instruction Type:Patient Education How to access health informa tion online - Detail Indication:Upper Respiratory Infection (Renamed from Infection of the upper respiratory tract) Start:18-Aug-2015 Instruction Type:Patient Education Patient Instructions Indication:Upper Respiratory Infection (Renamed from Infection of the upper respiratory tract) Start:18-Aug-2015 Instruction Type:Provider Instructions for Treatment Patient Instructions Indication:Upper Respiratory Infection (Renamed from Infection of the upper respiratory tract) Start:18-Sep-2014 Instruction Type:Provider Instructions for Treatment Patient Instructions Indication:Urinary frequency Start:22-Apr-2014 Instruction Type:Provider Instructions for Treatment Patient Instructions Indication:Urinary frequency Start:28-Jan-2014 Instruction Type:Provider Instructions for Treatment Patient Instructions Indication:Acute sinusitis Start:19-Jun-2013 Instruction Type:Provider Instructions for Treatment Patient Instructions Indication:Colitis due to Clostridium difficile (Renamed from C. difficile colitis) Start:21-Mar-2013 Instruction Type:Provider Instructions for Treatment Patient Instructions Indication:Diarrhea Start:17-Mar-2013 Instruction Type:Provider Instructions for Treatment Patient Instructions Indication:Urinary tract infection, site not specified Start:18-Feb-2013 Instruction Type:Provider Instructions for Treatment Patient Instructions Indication:Hypercholesteremia Start:27-Jan-2013 Instruction Type:Provider Instructions for Treatment Patient Instructions Indication:Constipation Start:16-Aug-2012 Instruction Type:Provider Instructions for Treatment Patient Instructions Indication:Constipation Start:03-Jul-2012 Instruction Type:Provider Instructions for Treatment Patient Instructions Indication:Acute sinusitis Start:22-Apr-2012 Instruction Type:Provider Instructions for Treatment Name Dates Details How to access health informa tion online Indication:Right foot pain Start:08-May-2019 Instruction Type:Patient Education How to access health informa tion online - Detail Indication:Right foot pain Start:08-May-2019 Instruction Type:Patient Education Patient Instructions Indication:Right foot pain Start:08-May-2019 Instruction Type:Provider Instructions for Treatment How to access health informa tion online Indication:Non-smoker Start:12-Mar-2019 Instruction Type:Patient Education How to access health informa tion online - Detail Indication:Non-smoker Start:12-Mar-2019 Instruction Type:Patient Education Patient Instructions Indication:Non-smoker Start:12-Mar-2019 Instruction Type:Provider Instructions for Treatment How to access health informa tion online Indication:BMI 27.0-27.9,adult Start:18-Jul-2018 Instruction Type:Patient Education How to access health informa tion online - Detail Indication:BMI 27.0-27.9,adult Start:18-Jul-2018 Instruction Type:Patient Education Patient Instructions Indication:Sinus pressure Start:18-Jul-2018 Instruction Type:Provider Instructions for Treatment How to access health informa tion online Indication:BMI 27.0-27.9,adult Start:24-Oct-2017 Instruction Type:Patient Education How to access health informa tion online - Detail Indication:BMI 27.0-27.9,adult Start:24-Oct-2017 Instruction Type:Patient Education Patient Instructions Indication:BMI 27.0-27.9,adult Start:24-Oct-2017 Instruction Type:Provider Instructions for Treatment How to access health informa tion online Indication:Non-smoker Start:28-Feb-2017 Instruction Type:Patient Education How to access health informa tion online - Detail Indication:Non-smoker Start:28-Feb-2017 Instruction Type:Patient Education Patient Instructions Indication:Non-smoker Start:28-Feb-2017 Instruction Type:Provider Instructions for Treatment How to access health informa tion online Indication:Flu-like symptoms Start:17-May-2016 Instruction Type:Patient Education How to access health informa tion online - Detail Indication:Flu-like symptoms Start:17-May-2016 Instruction Type:Patient Education Patient Instructions Indication:Flu-like symptoms Start:17-May-2016 Instruction Type:Provider Instructions for Treatment How to access health informa tion online Indication:Hypercholesteremia Start:03-Dec-2015 Instruction Type:Patient Education How to access health informa tion online - Detail Indication:Hypercholesteremia Start:03-Dec-2015 Instruction Type:Patient Education Patient Instructions Indication:Hypercholesteremia Start:03-Dec-2015 Instruction Type:Provider Instructions for Treatment How to access health informa tion online Indication:Hypercholesteremia Start:01-Nov-2015 Instruction Type:Patient Education How to access health informa tion online - Detail Indication:Hypercholesteremia Start:01-Nov-2015 Instruction Type:Patient Education Patient Instructions Indication:Hypercholesteremia Start:01-Nov-2015 Instruction Type:Provider Instructions for Treatment How to access health informa tion online Indication:Upper Respiratory Infection (Renamed from Infection of the upper respiratory tract) Start:18-Aug-2015 Instruction Type:Patient Education How to access health informa tion online - Detail Indication:Upper Respiratory Infection (Renamed from Infection of the upper respiratory tract) Start:18-Aug-2015 Instruction Type:Patient Education Patient Instructions Indication:Upper Respiratory Infection (Renamed from Infection of the upper respiratory tract) Start:18-Aug-2015 Instruction Type:Provider Instructions for Treatment Patient Instructions Indication:Upper Respiratory Infection (Renamed from Infection of the upper respiratory tract) Start:18-Sep-2014 Instruction Type:Provider Instructions for Treatment Patient Instructions Indication:Urinary frequency Start:22-Apr-2014 Instruction Type:Provider Instructions for Treatment Patient Instructions Indication:Urinary frequency Start:28-Jan-2014 Instruction Type:Provider Instructions for Treatment Patient Instructions Indication:Acute sinusitis Start:19-Jun-2013 Instruction Type:Provider Instructions for Treatment Patient Instructions Indication:Colitis due to Clostridium difficile (Renamed from C. difficile colitis) Start:21-Mar-2013 Instruction Type:Provider Instructions for Treatment Patient Instructions Indication:Diarrhea Start:17-Mar-2013 Instruction Type:Provider Instructions for Treatment Patient Instructions Indication:Urinary tract infection, site not specified Start:18-Feb-2013 Instruction Type:Provider Instructions for Treatment Patient Instructions Indication:Hypercholesteremia Start:27-Jan-2013 Instruction Type:Provider Instructions for Treatment Patient Instructions Indication:Constipation Start:16-Aug-2012 Instruction Type:Provider Instructions for Treatment Patient Instructions Indication:Constipation Start:03-Jul-2012 Instruction Type:Provider Instructions for Treatment Patient Instructions Indication:Acute sinusitis Start:22-Apr-2012 Instruction Type:Provider Instructions for Treatment Name Dates Details How to access health informa tion online Indication:Non-smoker Start:15-Jan-2020 Instruction Type:Patient Education How to access health informa tion online - Detail Indication:Non-smoker Start:15-Jan-2020 Instruction Type:Patient Education Patient Instructions Indication:Non-smoker Start:15-Jan-2020 Instruction Type:Provider Instructions for Treatment How to access health informa tion online Indication:Right foot pain Start:08-May-2019 Instruction Type:Patient Education How to access health informa tion online - Detail Indication:Right foot pain Start:08-May-2019 Instruction Type:Patient Education Patient Instructions Indication:Right foot pain Start:08-May-2019 Instruction Type:Provider Instructions for Treatment How to access health informa tion online Indication:Non-smoker Start:12-Mar-2019 Instruction Type:Patient Education How to access health informa tion online - Detail Indication:Non-smoker Start:12-Mar-2019 Instruction Type:Patient Education Patient Instructions Indication:Non-smoker Start:12-Mar-2019 Instruction Type:Provider Instructions for Treatment How to access health informa tion online Indication:BMI 27.0-27.9,adult Start:18-Jul-2018 Instruction Type:Patient Education How to access health informa tion online - Detail Indication:BMI 27.0-27.9,adult Start:18-Jul-2018 Instruction Type:Patient Education Patient Instructions Indication:Sinus pressure Start:18-Jul-2018 Instruction Type:Provider Instructions for Treatment How to access health informa tion online Indication:BMI 27.0-27.9,adult Start:24-Oct-2017 Instruction Type:Patient Education How to access health informa tion online - Detail Indication:BMI 27.0-27.9,adult Start:24-Oct-2017 Instruction Type:Patient Education Patient Instructions Indication:BMI 27.0-27.9,adult Start:24-Oct-2017 Instruction Type:Provider Instructions for Treatment How to access health informa tion online Indication:Non-smoker Start:28-Feb-2017 Instruction Type:Patient Education How to access health informa tion online - Detail Indication:Non-smoker Start:28-Feb-2017 Instruction Type:Patient Education Patient Instructions Indication:Non-smoker Start:28-Feb-2017 Instruction Type:Provider Instructions for Treatment How to access health informa tion online Indication:Flu-like symptoms Start:17-May-2016 Instruction Type:Patient Education How to access health informa tion online - Detail Indication:Flu-like symptoms Start:17-May-2016 Instruction Type:Patient Education Patient Instructions Indication:Flu-like symptoms Start:17-May-2016 Instruction Type:Provider Instructions for Treatment How to access health informa tion online Indication:Hypercholesteremia Start:03-Dec-2015 Instruction Type:Patient Education How to access health informa tion online - Detail Indication:Hypercholesteremia Start:03-Dec-2015 Instruction Type:Patient Education Patient Instructions Indication:Hypercholesteremia Start:03-Dec-2015 Instruction Type:Provider Instructions for Treatment How to access health informa tion online Indication:Hypercholesteremia Start:01-Nov-2015 Instruction Type:Patient Education How to access health informa tion online - Detail Indication:Hypercholesteremia Start:01-Nov-2015 Instruction Type:Patient Education Patient Instructions Indication:Hypercholesteremia Start:01-Nov-2015 Instruction Type:Provider Instructions for Treatment How to access health informa tion online Indication:Upper Respiratory Infection (Renamed from Infection of the upper respiratory tract) Start:18-Aug-2015 Instruction Type:Patient Education How to access health informa tion online - Detail Indication:Upper Respiratory Infection (Renamed from Infection of the upper respiratory tract) Start:18-Aug-2015 Instruction Type:Patient Education Patient Instructions Indication:Upper Respiratory Infection (Renamed from Infection of the upper respiratory tract) Start:18-Aug-2015 Instruction Type:Provider Instructions for Treatment Patient Instructions Indication:Upper Respiratory Infection (Renamed from Infection of the upper respiratory tract) Start:18-Sep-2014 Instruction Type:Provider Instructions for Treatment Patient Instructions Indication:Urinary frequency Start:22-Apr-2014 Instruction Type:Provider Instructions for Treatment Patient Instructions Indication:Urinary frequency Start:28-Jan-2014 Instruction Type:Provider Instructions for Treatment Patient Instructions Indication:Acute sinusitis Start:19-Jun-2013 Instruction Type:Provider Instructions for Treatment Patient Instructions Indication:Colitis due to Clostridium difficile (Renamed from C. difficile colitis) Start:21-Mar-2013 Instruction Type:Provider Instructions for Treatment Patient Instructions Indication:Diarrhea Start:17-Mar-2013 Instruction Type:Provider Instructions for Treatment Patient Instructions Indication:Urinary tract infection, site not specified Start:18-Feb-2013 Instruction Type:Provider Instructions for Treatment Patient Instructions Indication:Hypercholesteremia Start:27-Jan-2013 Instruction Type:Provider Instructions for Treatment Patient Instructions Indication:Constipation Start:16-Aug-2012 Instruction Type:Provider Instructions for Treatment Patient Instructions Indication:Constipation Start:03-Jul-2012 Instruction Type:Provider Instructions for Treatment Patient Instructions Indication:Acute sinusitis Start:22-Apr-2012 Instruction Type:Provider Instructions for Treatment Name Dates Details How to access health informa tion online Indication:BMI 27.0-27.9,adult Start:18-Feb-2020 Instruction Type:Patient Education How to access health informa tion online - Detail Indication:BMI 27.0-27.9,adult Start:18-Feb-2020 Instruction Type:Patient Education Patient Instructions Indication:BMI 27.0-27.9,adult Start:18-Feb-2020 Instruction Type:Provider Instructions for Treatment How to access health informa tion online Indication:Non-smoker Start:15-Jan-2020 Instruction Type:Patient Education How to access health informa tion online - Detail Indication:Non-smoker Start:15-Jan-2020 Instruction Type:Patient Education Patient Instructions Indication:Non-smoker Start:15-Jan-2020 Instruction Type:Provider Instructions for Treatment How to access health informa tion online Indication:Right foot pain Start:08-May-2019 Instruction Type:Patient Education How to access health informa tion online - Detail Indication:Right foot pain Start:08-May-2019 Instruction Type:Patient Education Patient Instructions Indication:Right foot pain Start:08-May-2019 Instruction Type:Provider Instructions for Treatment How to access health informa tion online Indication:Non-smoker Start:12-Mar-2019 Instruction Type:Patient Education How to access health informa tion online - Detail Indication:Non-smoker Start:12-Mar-2019 Instruction Type:Patient Education Patient Instructions Indication:Non-smoker Start:12-Mar-2019 Instruction Type:Provider Instructions for Treatment How to access health informa tion online Indication:BMI 27.0-27.9,adult Start:18-Jul-2018 Instruction Type:Patient Education How to access health informa tion online - Detail Indication:BMI 27.0-27.9,adult Start:18-Jul-2018 Instruction Type:Patient Education Patient Instructions Indication:Sinus pressure Start:18-Jul-2018 Instruction Type:Provider Instructions for Treatment How to access health informa tion online Indication:BMI 27.0-27.9,adult Start:24-Oct-2017 Instruction Type:Patient Education How to access health informa tion online - Detail Indication:BMI 27.0-27.9,adult Start:24-Oct-2017 Instruction Type:Patient Education Patient Instructions Indication:BMI 27.0-27.9,adult Start:24-Oct-2017 Instruction Type:Provider Instructions for Treatment How to access health informa tion online Indication:Non-smoker Start:28-Feb-2017 Instruction Type:Patient Education How to access health informa tion online - Detail Indication:Non-smoker Start:28-Feb-2017 Instruction Type:Patient Education Patient Instructions Indication:Non-smoker Start:28-Feb-2017 Instruction Type:Provider Instructions for Treatment How to access health informa tion online Indication:Flu-like symptoms Start:17-May-2016 Instruction Type:Patient Education How to access health informa tion online - Detail Indication:Flu-like symptoms Start:17-May-2016 Instruction Type:Patient Education Patient Instructions Indication:Flu-like symptoms Start:17-May-2016 Instruction Type:Provider Instructions for Treatment How to access health informa tion online Indication:Hypercholesteremia Start:03-Dec-2015 Instruction Type:Patient Education How to access health informa tion online - Detail Indication:Hypercholesteremia Start:03-Dec-2015 Instruction Type:Patient Education Patient Instructions Indication:Hypercholesteremia Start:03-Dec-2015 Instruction Type:Provider Instructions for Treatment How to access health informa tion online Indication:Hypercholesteremia Start:01-Nov-2015 Instruction Type:Patient Education How to access health informa tion online - Detail Indication:Hypercholesteremia Start:01-Nov-2015 Instruction Type:Patient Education Patient Instructions Indication:Hypercholesteremia Start:01-Nov-2015 Instruction Type:Provider Instructions for Treatment How to access health informa tion online Indication:Upper Respiratory Infection (Renamed from Infection of the upper respiratory tract) Start:18-Aug-2015 Instruction Type:Patient Education How to access health informa tion online - Detail Indication:Upper Respiratory Infection (Renamed from Infection of the upper respiratory tract) Start:18-Aug-2015 Instruction Type:Patient Education Patient Instructions Indication:Upper Respiratory Infection (Renamed from Infection of the upper respiratory tract) Start:18-Aug-2015 Instruction Type:Provider Instructions for Treatment Patient Instructions Indication:Upper Respiratory Infection (Renamed from Infection of the upper respiratory tract) Start:18-Sep-2014 Instruction Type:Provider Instructions for Treatment Patient Instructions Indication:Urinary frequency Start:22-Apr-2014 Instruction Type:Provider Instructions for Treatment Patient Instructions Indication:Urinary frequency Start:28-Jan-2014 Instruction Type:Provider Instructions for Treatment Patient Instructions Indication:Acute sinusitis Start:19-Jun-2013 Instruction Type:Provider Instructions for Treatment Patient Instructions Indication:Colitis due to Clostridium difficile (Renamed from C. difficile colitis) Start:21-Mar-2013 Instruction Type:Provider Instructions for Treatment Patient Instructions Indication:Diarrhea Start:17-Mar-2013 Instruction Type:Provider Instructions for Treatment Patient Instructions Indication:Urinary tract infection, site not specified Start:18-Feb-2013 Instruction Type:Provider Instructions for Treatment Patient Instructions Indication:Hypercholesteremia Start:27-Jan-2013 Instruction Type:Provider Instructions for Treatment Patient Instructions Indication:Constipation Start:16-Aug-2012 Instruction Type:Provider Instructions for Treatment Patient Instructions Indication:Constipation Start:03-Jul-2012 Instruction Type:Provider Instructions for Treatment Patient Instructions Indication:Acute sinusitis Start:22-Apr-2012 Instruction Type:Provider Instructions for Treatment Name Dates Details How to access health informa tion online Indication:BMI 27.0-27.9,adult Start:18-Feb-2020 Instruction Type:Patient Education How to access health informa tion online - Detail Indication:BMI 27.0-27.9,adult Start:18-Feb-2020 Instruction Type:Patient Education Patient Instructions Indication:BMI 27.0-27.9,adult Start:18-Feb-2020 Instruction Type:Provider Instructions for Treatment How to access health informa tion online Indication:Non-smoker Start:15-Jan-2020 Instruction Type:Patient Education How to access health informa tion online - Detail Indication:Non-smoker Start:15-Jan-2020 Instruction Type:Patient Education Patient Instructions Indication:Non-smoker Start:15-Jan-2020 Instruction Type:Provider Instructions for Treatment How to access health informa tion online Indication:Right foot pain Start:08-May-2019 Instruction Type:Patient Education How to access health informa tion online - Detail Indication:Right foot pain Start:08-May-2019 Instruction Type:Patient Education Patient Instructions Indication:Right foot pain Start:08-May-2019 Instruction Type:Provider Instructions for Treatment How to access health informa tion online Indication:Non-smoker Start:12-Mar-2019 Instruction Type:Patient Education How to access health informa tion online - Detail Indication:Non-smoker Start:12-Mar-2019 Instruction Type:Patient Education Patient Instructions Indication:Non-smoker Start:12-Mar-2019 Instruction Type:Provider Instructions for Treatment How to access health informa tion online Indication:BMI 27.0-27.9,adult Start:18-Jul-2018 Instruction Type:Patient Education How to access health informa tion online - Detail Indication:BMI 27.0-27.9,adult Start:18-Jul-2018 Instruction Type:Patient Education Patient Instructions Indication:Sinus pressure Start:18-Jul-2018 Instruction Type:Provider Instructions for Treatment How to access health informa tion online Indication:BMI 27.0-27.9,adult Start:24-Oct-2017 Instruction Type:Patient Education How to access health informa tion online - Detail Indication:BMI 27.0-27.9,adult Start:24-Oct-2017 Instruction Type:Patient Education Patient Instructions Indication:BMI 27.0-27.9,adult Start:24-Oct-2017 Instruction Type:Provider Instructions for Treatment How to access health informa tion online Indication:Non-smoker Start:28-Feb-2017 Instruction Type:Patient Education How to access health informa tion online - Detail Indication:Non-smoker Start:28-Feb-2017 Instruction Type:Patient Education Patient Instructions Indication:Non-smoker Start:28-Feb-2017 Instruction Type:Provider Instructions for Treatment How to access health informa tion online Indication:Flu-like symptoms Start:17-May-2016 Instruction Type:Patient Education How to access health informa tion online - Detail Indication:Flu-like symptoms Start:17-May-2016 Instruction Type:Patient Education Patient Instructions Indication:Flu-like symptoms Start:17-May-2016 Instruction Type:Provider Instructions for Treatment How to access health informa tion online Indication:Hypercholesteremia Start:03-Dec-2015 Instruction Type:Patient Education How to access health informa tion online - Detail Indication:Hypercholesteremia Start:03-Dec-2015 Instruction Type:Patient Education Patient Instructions Indication:Hypercholesteremia Start:03-Dec-2015 Instruction Type:Provider Instructions for Treatment How to access health informa tion online Indication:Hypercholesteremia Start:01-Nov-2015 Instruction Type:Patient Education How to access health informa tion online - Detail Indication:Hypercholesteremia Start:01-Nov-2015 Instruction Type:Patient Education Patient Instructions Indication:Hypercholesteremia Start:01-Nov-2015 Instruction Type:Provider Instructions for Treatment How to access health informa tion online Indication:Upper Respiratory Infection (Renamed from Infection of the upper respiratory tract) Start:18-Aug-2015 Instruction Type:Patient Education How to access health informa tion online - Detail Indication:Upper Respiratory Infection (Renamed from Infection of the upper respiratory tract) Start:18-Aug-2015 Instruction Type:Patient Education Patient Instructions Indication:Upper Respiratory Infection (Renamed from Infection of the upper respiratory tract) Start:18-Aug-2015 Instruction Type:Provider Instructions for Treatment Patient Instructions Indication:Upper Respiratory Infection (Renamed from Infection of the upper respiratory tract) Start:18-Sep-2014 Instruction Type:Provider Instructions for Treatment Patient Instructions Indication:Urinary frequency Start:22-Apr-2014 Instruction Type:Provider Instructions for Treatment Patient Instructions Indication:Urinary frequency Start:28-Jan-2014 Instruction Type:Provider Instructions for Treatment Patient Instructions Indication:Acute sinusitis Start:19-Jun-2013 Instruction Type:Provider Instructions for Treatment Patient Instructions Indication:Colitis due to Clostridium difficile (Renamed from C. difficile colitis) Start:21-Mar-2013 Instruction Type:Provider Instructions for Treatment Patient Instructions Indication:Diarrhea Start:17-Mar-2013 Instruction Type:Provider Instructions for Treatment Patient Instructions Indication:Urinary tract infection, site not specified Start:18-Feb-2013 Instruction Type:Provider Instructions for Treatment Patient Instructions Indication:Hypercholesteremia Start:27-Jan-2013 Instruction Type:Provider Instructions for Treatment Patient Instructions Indication:Constipation Start:16-Aug-2012 Instruction Type:Provider Instructions for Treatment Patient Instructions Indication:Constipation Start:03-Jul-2012 Instruction Type:Provider Instructions for Treatment Patient Instructions Indication:Acute sinusitis Start:22-Apr-2012 Instruction Type:Provider Instructions for Treatment Name Dates Details How to access health informa tion online Indication:BMI 27.0-27.9,adult Start:18-Feb-2020 Instruction Type:Patient Education How to access health informa tion online - Detail Indication:BMI 27.0-27.9,adult Start:18-Feb-2020 Instruction Type:Patient Education Patient Instructions Indication:BMI 27.0-27.9,adult Start:18-Feb-2020 Instruction Type:Provider Instructions for Treatment How to access health informa tion online Indication:Non-smoker Start:15-Jan-2020 Instruction Type:Patient Education How to access health informa tion online - Detail Indication:Non-smoker Start:15-Jan-2020 Instruction Type:Patient Education Patient Instructions Indication:Non-smoker Start:15-Jan-2020 Instruction Type:Provider Instructions for Treatment How to access health informa tion online Indication:Right foot pain Start:08-May-2019 Instruction Type:Patient Education How to access health informa tion online - Detail Indication:Right foot pain Start:08-May-2019 Instruction Type:Patient Education Patient Instructions Indication:Right foot pain Start:08-May-2019 Instruction Type:Provider Instructions for Treatment How to access health informa tion online Indication:Non-smoker Start:12-Mar-2019 Instruction Type:Patient Education How to access health informa tion online - Detail Indication:Non-smoker Start:12-Mar-2019 Instruction Type:Patient Education Patient Instructions Indication:Non-smoker Start:12-Mar-2019 Instruction Type:Provider Instructions for Treatment How to access health informa tion online Indication:BMI 27.0-27.9,adult Start:18-Jul-2018 Instruction Type:Patient Education How to access health informa tion online - Detail Indication:BMI 27.0-27.9,adult Start:18-Jul-2018 Instruction Type:Patient Education Patient Instructions Indication:Sinus pressure Start:18-Jul-2018 Instruction Type:Provider Instructions for Treatment How to access health informa tion online Indication:BMI 27.0-27.9,adult Start:24-Oct-2017 Instruction Type:Patient Education How to access health informa tion online - Detail Indication:BMI 27.0-27.9,adult Start:24-Oct-2017 Instruction Type:Patient Education Patient Instructions Indication:BMI 27.0-27.9,adult Start:24-Oct-2017 Instruction Type:Provider Instructions for Treatment How to access health informa tion online Indication:Non-smoker Start:28-Feb-2017 Instruction Type:Patient Education How to access health informa tion online - Detail Indication:Non-smoker Start:28-Feb-2017 Instruction Type:Patient Education Patient Instructions Indication:Non-smoker Start:28-Feb-2017 Instruction Type:Provider Instructions for Treatment How to access health informa tion online Indication:Flu-like symptoms Start:17-May-2016 Instruction Type:Patient Education How to access health informa tion online - Detail Indication:Flu-like symptoms Start:17-May-2016 Instruction Type:Patient Education Patient Instructions Indication:Flu-like symptoms Start:17-May-2016 Instruction Type:Provider Instructions for Treatment How to access health informa tion online Indication:Hypercholesteremia Start:03-Dec-2015 Instruction Type:Patient Education How to access health informa tion online - Detail Indication:Hypercholesteremia Start:03-Dec-2015 Instruction Type:Patient Education Patient Instructions Indication:Hypercholesteremia Start:03-Dec-2015 Instruction Type:Provider Instructions for Treatment How to access health informa tion online Indication:Hypercholesteremia Start:01-Nov-2015 Instruction Type:Patient Education How to access health informa tion online - Detail Indication:Hypercholesteremia Start:01-Nov-2015 Instruction Type:Patient Education Patient Instructions Indication:Hypercholesteremia Start:01-Nov-2015 Instruction Type:Provider Instructions for Treatment How to access health informa tion online Indication:Upper Respiratory Infection (Renamed from Infection of the upper respiratory tract) Start:18-Aug-2015 Instruction Type:Patient Education How to access health informa tion online - Detail Indication:Upper Respiratory Infection (Renamed from Infection of the upper respiratory tract) Start:18-Aug-2015 Instruction Type:Patient Education Patient Instructions Indication:Upper Respiratory Infection (Renamed from Infection of the upper respiratory tract) Start:18-Aug-2015 Instruction Type:Provider Instructions for Treatment Patient Instructions Indication:Upper Respiratory Infection (Renamed from Infection of the upper respiratory tract) Start:18-Sep-2014 Instruction Type:Provider Instructions for Treatment Patient Instructions Indication:Urinary frequency Start:22-Apr-2014 Instruction Type:Provider Instructions for Treatment Patient Instructions Indication:Urinary frequency Start:28-Jan-2014 Instruction Type:Provider Instructions for Treatment Patient Instructions Indication:Acute sinusitis Start:19-Jun-2013 Instruction Type:Provider Instructions for Treatment Patient Instructions Indication:Colitis due to Clostridium difficile (Renamed from C. difficile colitis) Start:21-Mar-2013 Instruction Type:Provider Instructions for Treatment Patient Instructions Indication:Diarrhea Start:17-Mar-2013 Instruction Type:Provider Instructions for Treatment Patient Instructions Indication:Urinary tract infection, site not specified Start:18-Feb-2013 Instruction Type:Provider Instructions for Treatment Patient Instructions Indication:Hypercholesteremia Start:27-Jan-2013 Instruction Type:Provider Instructions for Treatment Patient Instructions Indication:Constipation Start:16-Aug-2012 Instruction Type:Provider Instructions for Treatment Patient Instructions Indication:Constipation Start:03-Jul-2012 Instruction Type:Provider Instructions for Treatment Patient Instructions Indication:Acute sinusitis Start:22-Apr-2012 Instruction Type:Provider Instructions for Treatment Name Dates Details How to access health informa tion online Indication:BMI 27.0-27.9,adult Start:18-Feb-2020 Instruction Type:Patient Education How to access health informa tion online - Detail Indication:BMI 27.0-27.9,adult Start:18-Feb-2020 Instruction Type:Patient Education Patient Instructions Indication:BMI 27.0-27.9,adult Start:18-Feb-2020 Instruction Type:Provider Instructions for Treatment How to access health informa tion online Indication:Non-smoker Start:15-Jan-2020 Instruction Type:Patient Education How to access health informa tion online - Detail Indication:Non-smoker Start:15-Jan-2020 Instruction Type:Patient Education Patient Instructions Indication:Non-smoker Start:15-Jan-2020 Instruction Type:Provider Instructions for Treatment How to access health informa tion online Indication:Right foot pain Start:08-May-2019 Instruction Type:Patient Education How to access health informa tion online - Detail Indication:Right foot pain Start:08-May-2019 Instruction Type:Patient Education Patient Instructions Indication:Right foot pain Start:08-May-2019 Instruction Type:Provider Instructions for Treatment How to access health informa tion online Indication:Non-smoker Start:12-Mar-2019 Instruction Type:Patient Education How to access health informa tion online - Detail Indication:Non-smoker Start:12-Mar-2019 Instruction Type:Patient Education Patient Instructions Indication:Non-smoker Start:12-Mar-2019 Instruction Type:Provider Instructions for Treatment How to access health informa tion online Indication:BMI 27.0-27.9,adult Start:18-Jul-2018 Instruction Type:Patient Education How to access health informa tion online - Detail Indication:BMI 27.0-27.9,adult Start:18-Jul-2018 Instruction Type:Patient Education Patient Instructions Indication:Sinus pressure Start:18-Jul-2018 Instruction Type:Provider Instructions for Treatment How to access health informa tion online Indication:BMI 27.0-27.9,adult Start:24-Oct-2017 Instruction Type:Patient Education How to access health informa tion online - Detail Indication:BMI 27.0-27.9,adult Start:24-Oct-2017 Instruction Type:Patient Education Patient Instructions Indication:BMI 27.0-27.9,adult Start:24-Oct-2017 Instruction Type:Provider Instructions for Treatment How to access health informa tion online Indication:Non-smoker Start:28-Feb-2017 Instruction Type:Patient Education How to access health informa tion online - Detail Indication:Non-smoker Start:28-Feb-2017 Instruction Type:Patient Education Patient Instructions Indication:Non-smoker Start:28-Feb-2017 Instruction Type:Provider Instructions for Treatment How to access health informa tion online Indication:Flu-like symptoms Start:17-May-2016 Instruction Type:Patient Education How to access health informa tion online - Detail Indication:Flu-like symptoms Start:17-May-2016 Instruction Type:Patient Education Patient Instructions Indication:Flu-like symptoms Start:17-May-2016 Instruction Type:Provider Instructions for Treatment How to access health informa tion online Indication:Hypercholesteremia Start:03-Dec-2015 Instruction Type:Patient Education How to access health informa tion online - Detail Indication:Hypercholesteremia Start:03-Dec-2015 Instruction Type:Patient Education Patient Instructions Indication:Hypercholesteremia Start:03-Dec-2015 Instruction Type:Provider Instructions for Treatment How to access health informa tion online Indication:Hypercholesteremia Start:01-Nov-2015 Instruction Type:Patient Education How to access health informa tion online - Detail Indication:Hypercholesteremia Start:01-Nov-2015 Instruction Type:Patient Education Patient Instructions Indication:Hypercholesteremia Start:01-Nov-2015 Instruction Type:Provider Instructions for Treatment How to access health informa tion online Indication:Upper Respiratory Infection (Renamed from Infection of the upper respiratory tract) Start:18-Aug-2015 Instruction Type:Patient Education How to access health informa tion online - Detail Indication:Upper Respiratory Infection (Renamed from Infection of the upper respiratory tract) Start:18-Aug-2015 Instruction Type:Patient Education Patient Instructions Indication:Upper Respiratory Infection (Renamed from Infection of the upper respiratory tract) Start:18-Aug-2015 Instruction Type:Provider Instructions for Treatment Patient Instructions Indication:Upper Respiratory Infection (Renamed from Infection of the upper respiratory tract) Start:18-Sep-2014 Instruction Type:Provider Instructions for Treatment Patient Instructions Indication:Urinary frequency Start:22-Apr-2014 Instruction Type:Provider Instructions for Treatment Patient Instructions Indication:Urinary frequency Start:28-Jan-2014 Instruction Type:Provider Instructions for Treatment Patient Instructions Indication:Acute sinusitis Start:19-Jun-2013 Instruction Type:Provider Instructions for Treatment Patient Instructions Indication:Colitis due to Clostridium difficile (Renamed from C. difficile colitis) Start:21-Mar-2013 Instruction Type:Provider Instructions for Treatment Patient Instructions Indication:Diarrhea Start:17-Mar-2013 Instruction Type:Provider Instructions for Treatment Patient Instructions Indication:Urinary tract infection, site not specified Start:18-Feb-2013 Instruction Type:Provider Instructions for Treatment Patient Instructions Indication:Hypercholesteremia Start:27-Jan-2013 Instruction Type:Provider Instructions for Treatment Patient Instructions Indication:Constipation Start:16-Aug-2012 Instruction Type:Provider Instructions for Treatment Patient Instructions Indication:Constipation Start:03-Jul-2012 Instruction Type:Provider Instructions for Treatment Patient Instructions Indication:Acute sinusitis Start:22-Apr-2012 Instruction Type:Provider Instructions for Treatment Reason for Referral Specialty Diagnoses / Procedures Referred By Contac t Referred To Contact MR IMAGING Diagnoses Multiple sclerosis (HCC) Encounter for long-term (current) use of medications Procedures MRI BRAIN WO/W IVCON MRI BRAIN BRAIN STEM W/O W/CONTRAST MATERIAL Mary Landis APRN.FAMILY SERVICES ASSISTANT [address] [place] [address] Mr Imaging Referral ID Status Reason Start Date Expiration Date V isits Requested Visits Authorized [id number] Closed Auto-Generate d Referral 09/30/2021 03/19/2022 1 1 Specialty Diagnoses / Procedures Referred By Contac t Referred To Contact MR IMAGING Diagnoses Encounter for long-term (current) use of medications Multiple sclerosis (HCC) Procedures MRI BRAIN WO/W IVCON MRI BRAIN BRAIN STEM W/O W/CONTRAST MATERIAL Mary Landis APRN.FAMILY SERVICES ASSISTANT [address] [place] [address] Mr Imaging Referral ID Status Reason Start Date Expiration Date Visits Requested Visits Authorized [id number] Pending Review Auto-Generat ed Referral 03/01/2022 03/31/2023 1 1 Specialty Diagnoses / Procedures Referred By Contac t Referred To Contact General Surgery Diagnoses Papilloma of left breast Procedures CONSULT TO GENERAL SURGERY OFFICE/OUTPATIENT [facility] 60-74 MINUTES Gela Real MD [address] [place] [address] Referral ID Status Reason Start Date Expiration Date Visits Requested Visits Authorized [id number] Authorized PCP Requested Referral 05/04/2022 05/04/2023 1 1 Specialty Diagnoses / Procedures Referred By Contac t Referred To Contact MR IMAGING Diagnoses Encounter for long-term (current) use of medications Multiple sclerosis (HCC) Procedures MRI BRAIN WO/W IVCON MRI BRAIN BRAIN STEM W/O W/CONTRAST MATERIAL Mary Landis APRN.FAMILY SERVICES ASSISTANT [address] [place] [address] Mr Imaging Referral ID Status Reason Start Date Expiration Date V isits Requested Visits Authorized [id number] Closed Auto-Generate d Referral 03/01/2022 03/31/2023 1 1 Specialty Diagnoses / Procedures Referred By Contac t Referred To Contact MR IMAGING Diagnoses Multiple sclerosis (HCC) Procedures MRI BRAIN WO/W IVCON MRI BRAIN BRAIN STEM W/O W/CONTRAST MATERIAL Mary Lanids APRN.FAMILY SERVICES ASSISTANT [address] [place] [address] Mr Imaging Referral ID Status Reason Start Date Expiration Date Visits Requested Visits Authorized [id number] Authorized Auto-Generat ed Referral 02/27/2023 03/28/2024 1 1 Specialty Diagnoses / Procedures Referred By Contac t Referred To Contact Radiology Diagnoses Pure hypercholesterolemia, unspecified Procedures CT cardiac scoring wo IV contrast Miesha Guillen, [address] [facility] [address] [place] [address] Referral ID Status Reason Start Date Expiration Date Visits Requested Visits Authorized [id number] Authorized Perform Procedure 3 07/23/2024 1 1 Specialty Diagnoses / Procedures Referred By Contac t Referred To Contact MR IMAGING Diagnoses Demyelinating disease of central nervous system (HCC) Procedures MRI BRAIN WO/W IVCON MRI BRAIN BRAIN STEM W/O W/CONTRAST MATERIAL Mary Landis APRN.FAMILY SERVICES ASSISTANT [address] [place] [place] [id number] [facility] [place] [address] Referral ID Status Reason Start Date Expiration Date Visits Requested Visits Authorized [id number] Pending Review Auto-Generat ed Referral 08/30/2024 09/28/2024 1 1 Specialty Diagnoses / Procedures Referred By Contac t Referred To Contact MR IMAGING Diagnoses Multiple sclerosis (HCC) Procedures MRI BRAIN WO/W IVCON MRI BRAIN BRAIN STEM W/O W/CONTRAST MATERIAL Mary Landis APRN.FAMILY SERVICES ASSISTANT [address] [place] [address] Mr Imaging [place] [address] Referral ID Status Reason Start Date Expiration Date V isits Requested Visits Authorized [id number] Closed Auto-Generate d Referral 02/27/2023 03/28/2024 1 1 Chief Complaint and Reason for Visit Chief Complaint xray XRAY LEFT BREAST ABN MAMM Chief Complaint [place] [place] [employer] Chief Complaint [place]OM[employer]IC [place] [employer] [place] Iodine-deficiency related diffuse (endemic) goiter Chief Complaint Iodine-deficiency re lated diffuse (endemic) goiter Medications Administered Section Inactive Administered Medications - up to 3 most recent administrations Medication Order MAR Action Action Date Dose Rate Site lidocaine (PF) 10 mg/mL (1 %) 4 mL injection (XYLOCAINE) 4 mL, Injection - FOR ORTHO USE ONLY, ONE TIME INJECTION, 1 dose, Starting on Itzel 5/11/23 at 1639, Until Itzel 12/07/22 at 1639 Given 12/07/2022 4:39 PM EDT 4 mL Shoul miquel, Left triamcinolone acetonide 40 mg injection (KeNALog 40) 40 mg, Injection - FOR ORTHO USE ONLY, ONE TIME INJECTION, 1 dose, Starting on Itzel 12/07/22 at 1639, Until Itzel 12/07/22 at 1639 Given 12/07/2022 4:39 PM EDT 40 mg Shoul miquel, Left Inactive Administered Medications - up to 3 most recent administrations Medication Order MAR Action Action Date Dose Rate Site lidocaine (PF) 10 mg/mL (1 %) 4 mL injection (XYLOCAINE) 4 mL, Injection - FOR ORTHO USE ONLY, ONE TIME INJECTION, 1 dose, Starting on Sun03/30/23 at 0945, Until Sun03/30/23 at 0945 Given 03/30/2023 9:45 AM EDT 4 mL Shoulder, Left lidocaine (PF) 10 mg/mL (1 %) 4 mL injection (XYLOCAINE) 4 mL, Injection - FOR ORTHO USE ONLY, ONE TIME INJECTION, 1 dose, Starting on Sun03/30/23 at 0945, Until Sun03/30/23 at 0945 Given 03/30/2023 9:45 AM EDT 4 mL Shoulder, Right triamcinolone acetonide 40 mg injection (KeNALog 40) 40 mg, Injection - FOR ORTHO USE ONLY, ONE TIME INJECTION, 1 dose, Starting on Sun03/30/23 at 0945, Until Sun03/30/23 at 0945 Given 03/30/2023 9:45 AM EDT 40 mg Shoulder, Left triamcinolone acetonide 40 mg injection (KeNALog 40) 40 mg, Injection - FOR ORTHO USE ONLY, ONE TIME INJECTION, 1 dose, Starting on Sun03/30/23 at 0945, Until Sun03/30/23 at 0945 Given 03/30/2023 9:45 AM EDT 40 mg Shoulder, Right Additional Source Comments INFORMATION SOURCE (unrecogn ized section and content) DATE CREATED AUTHOR 01/21/2018 [facility] [place] DATE CREATED AUTHOR AUTHOR'S ORGANIZ ATION 07/20/2018 [facility] DATE CREATED AUTHOR AUTHOR'S ORGANIZ ATION 07/07/2020 [facility] DATE CREATED AUTHOR AUTHOR'S ORGANIZ ATION 04/18/2023 [facility] DATE CREATED AUTHOR AUTHOR'S ORGANIZ ATION 03/10/2024 [facility] DATE CREATED AUTHOR AUTHOR'S ORGANIZ ATION 01/21/2025 [facility] DATE CREATED AUTHOR AUTHOR'S ORGANIZ ATION 06/08/2025 [facility] Source Comments (unrecognize d section and content) In the event this informatio n is protected by the Federal Confidentiality of Alcohol and Drug Abuse Patient Records regulations: The Federal rules restrict any use of the information to criminally investigate or prosecute any alcohol or drug abuse patient.[facility] the event this information is protected by the Federal Confidentiality of Alcohol and Drug Abuse Patient Records regulations: The Federal rules restrict any use of the information to criminally investigate or prosecute any alcohol or drug abuse patient.[facility]In the event this information is protected by the Federal Confidentiality of Alcohol and Drug Abuse Patient Records regulations: The Federal rules restrict any use of the information to criminally investigate or prosecute any alcohol or drug abuse patient.[facility] HospitalIn the event this information is protected by the Federal Confidentiality of Alcohol and Drug Abuse Patient Records regulations: The Federal rules restrict any use of the information to criminally investigate or prosecute any alcohol or drug abuse patient.[facility] HospitalIn the event this information is protected by the Federal Confidentiality of Alcohol and Drug Abuse Patient Records regulations: The Federal rules restrict any use of the information to criminally investigate or prosecute any alcohol or drug abuse patient.[facility]In the event this information is protected by the Federal Confidentiality of Alcohol and Drug Abuse Patient Records regulations: The Federal rules restrict any use of the information to criminally investigate or prosecute any alcohol or drug abuse patient.[facility] HospitalIn the event this information is protected by the Federal Confidentiality of Alcohol and Drug Abuse Patient Records regulations: The Federal rules restrict any use of the information to criminally investigate or prosecute any alcohol or drug abuse patient.[facility] HospitalIn the event this information is protected by the Federal Confidentiality of Alcohol and Drug Abuse Patient Records regulations: The Federal rules restrict any use of the information to criminally investigate or prosecute any alcohol or drug abuse patient.[facility] HospitalIn the event this information is protected by the Federal Confidentiality of Alcohol and Drug Abuse Patient Records regulations: The Federal rules restrict any use of the information to criminally investigate or prosecute any alcohol or drug abuse patient.[facility] HospitalIn the event this information is protected by the Federal Confidentiality of Alcohol and Drug Abuse Patient Records regulations: The Federal rules restrict any use of the information to criminally investigate or prosecute any alcohol or drug abuse patient.[facility] HospitalIn the event this information is protected by the Federal Confidentiality of Alcohol and Drug Abuse Patient Records regulations: The Federal rules restrict any use of the information to criminally investigate or prosecute any alcohol or drug abuse patient.[facility] HospitalIn the event this information is protected by the Federal Confidentiality of Alcohol and Drug Abuse Patient Records regulations: The Federal rules restrict any use of the information to criminally investigate or prosecute any alcohol or drug abuse patient.[facility] HospitalIn the event this information is protected by the Federal Confidentiality of Alcohol and Drug Abuse Patient Records regulations: The Federal rules restrict any use of the information to criminally investigate or prosecute any alcohol or drug abuse patient.[facility] HospitalIn the event this information is protected by the Federal Confidentiality of Alcohol and Drug Abuse Patient Records regulations: The Federal rules restrict any use of the information to criminally investigate or prosecute any alcohol or drug abuse patient.[facility] HospitalIn the event this information is protected by the Federal Confidentiality of Alcohol and Drug Abuse Patient Records regulations: The Federal rules restrict any use of the information to criminally investigate or prosecute any alcohol or drug abuse patient.[facility] HospitalIn the event this information is protected by the Federal Confidentiality of Alcohol and Drug Abuse Patient Records regulations: The Federal rules restrict any use of the information to criminally investigate or prosecute any alcohol or drug abuse patient.[facility] HospitalIn the event this information is protected by the Federal Confidentiality of Alcohol and Drug Abuse Patient Records regulations: The Federal rules restrict any use of the information to criminally investigate or prosecute any alcohol or drug abuse patient.[facility] HospitalIn the event this information is protected by the Federal Confidentiality of Alcohol and Drug Abuse Patient Records regulations: The Federal rules restrict any use of the information to criminally investigate or prosecute any alcohol or drug abuse patient.[facility] HospitalIn the event this information is protected by the Federal Confidentiality of Alcohol and Drug Abuse Patient Records regulations: The Federal rules restrict any use of the information to criminally investigate or prosecute any alcohol or drug abuse patient.[facility] HospitalIn the event this information is protected by the Federal Confidentiality of Alcohol and Drug Abuse Patient Records regulations: The Federal rules restrict any use of the information to criminally investigate or prosecute any alcohol or drug abuse patient.[facility] HospitalIn the event this information is protected by the Federal Confidentiality of Alcohol and Drug Abuse Patient Records regulations: The Federal rules restrict any use of the information to criminally investigate or prosecute any alcohol or drug abuse patient.[facility] HospitalIn the event this information is protected by the Federal Confidentiality of Alcohol and Drug Abuse Patient Records regulations: The Federal rules restrict any use of the information to criminally investigate or prosecute any alcohol or drug abuse patient.[facility] HospitalIn the event this information is protected by the Federal Confidentiality of Alcohol and Drug Abuse Patient Records regulations: The Federal rules restrict any use of the information to criminally investigate or prosecute any alcohol or drug abuse patient.[facility] the event this information is protected by the Federal Confidentiality of Alcohol and Drug Abuse Patient Records regulations: The Federal rules restrict any use of the information to criminally investigate or prosecute any alcohol or drug abuse patient.[facility] HospitalIn the event this information is protected by the Federal Confidentiality of Alcohol and Drug Abuse Patient Records regulations: The Federal rules restrict any use of the information to criminally investigate or prosecute any alcohol or drug abuse patient.[facility] HospitalIn the event this information is protected by the Federal Confidentiality of Alcohol and Drug Abuse Patient Records regulations: The Federal rules restrict any use of the information to criminally investigate or prosecute any alcohol or drug abuse patient.[facility] HospitalIn the event this information is protected by the Federal Confidentiality of Alcohol and Drug Abuse Patient Records regulations: The Federal rules restrict any use of the information to criminally investigate or prosecute any alcohol or drug abuse patient.[facility] HospitalIn the event this information is protected by the Federal Confidentiality of Alcohol and Drug Abuse Patient Records regulations: The Federal rules restrict any use of the information to criminally investigate or prosecute any alcohol or drug abuse patient.[facility] HospitalIn the event this information is protected by the Federal Confidentiality of Alcohol and Drug Abuse Patient Records regulations: The Federal rules restrict any use of the information to criminally investigate or prosecute any alcohol or drug abuse patient.[facility] HospitalIn the event this information is protected by the Federal Confidentiality of Alcohol and Drug Abuse Patient Records regulations: The Federal rules restrict any use of the information to criminally investigate or prosecute any alcohol or drug abuse patient.[facility] HospitalIn the event this information is protected by the Federal Confidentiality of Alcohol and Drug Abuse Patient Records regulations: The Federal rules restrict any use of the information to criminally investigate or prosecute any alcohol or drug abuse patient.[facility] HospitalIn the event this information is protected by the Federal Confidentiality of Alcohol and Drug Abuse Patient Records regulations: The Federal rules restrict any use of the information to criminally investigate or prosecute any alcohol or drug abuse patient.[facility] HospitalIn the event this information is protected by the Federal Confidentiality of Alcohol and Drug Abuse Patient Records regulations: The Federal rules restrict any use of the information to criminally investigate or prosecute any alcohol or drug abuse patient.[facility] HospitalIn the event this information is protected by the Federal Confidentiality of Alcohol and Drug Abuse Patient Records regulations: The Federal rules restrict any use of the information to criminally investigate or prosecute any alcohol or drug abuse patient.[facility] HospitalIn the event this information is protected by the Federal Confidentiality of Alcohol and Drug Abuse Patient Records regulations: The Federal rules restrict any use of the information to criminally investigate or prosecute any alcohol or drug abuse patient.[facility] HospitalIn the event this information is protected by the Federal Confidentiality of Alcohol and Drug Abuse Patient Records regulations: The Federal rules restrict any use of the information to criminally investigate or prosecute any alcohol or drug abuse patient.[facility] HospitalIn the event this information is protected by the Federal Confidentiality of Alcohol and Drug Abuse Patient Records regulations: The Federal rules restrict any use of the information to criminally investigate or prosecute any alcohol or drug abuse patient.[facility] HospitalIn the event this information is protected by the Federal Confidentiality of Alcohol and Drug Abuse Patient Records regulations: The Federal rules restrict any use of the information to criminally investigate or prosecute any alcohol or drug abuse patient.[facility] HospitalIn the event this information is protected by the Federal Confidentiality of Alcohol and Drug Abuse Patient Records regulations: The Federal rules restrict any use of the information to criminally investigate or prosecute any alcohol or drug abuse patient.[facility] HospitalIn the event this information is protected by the Federal Confidentiality of Alcohol and Drug Abuse Patient Records regulations: The Federal rules restrict any use of the information to criminally investigate or prosecute any alcohol or drug abuse patient.[facility] HospitalIn the event this information is protected by the Federal Confidentiality of Alcohol and Drug Abuse Patient Records regulations: The Federal rules restrict any use of the information to criminally investigate or prosecute any alcohol or drug abuse patient.[facility] Care Teams (unrecognized sec tion and content) Java Web User Interface Developer Relationship Specialty Start Date End Date Miesha Guillen DO PCP - General Internal Medicine 09/22/16 Java Web User Interface Developer Relationship Specialty Start Date End Date Wilmer, Miesha Julio, DO PCP - General Internal Medicine 09/22/16 Java Web User Interface Developer Relationship Specialty Start Date End Date Miesha Guillen, DO PCP - General Internal Medicine 09/22/16 Java Web User Interface Developer Relationship Specialty Start Date End Date Miesha Guillen, DO PCP - General Internal Medicine 09/22/16 Java Web User Interface Developer Relationship Specialty Start Date End Date Miesha Guillen, DO PCP - General Internal Medicine 09/22/16 Java Web User Interface Developer Relationship Specialty Start Date End Date Miesha Guillen, DO PCP - General Internal Medicine 09/22/16 Java Web User Interface Developer Relationship Specialty Start Date End Date Miesha Guillen, DO PCP - General Internal Medicine 09/22/16 Java Web User Interface Developer Relationship Specialty Start Date End Date Miesha Guillen, DO PCP - General Internal Medicine 09/22/16 Java Web User Interface Developer Relationship Specialty Start Date End Date Miesha Guillen, DO PCP - General Internal Medicine 09/22/16 Java Web User Interface Developer Relationship Specialty Start Date End Date Miesha Guillen, DO PCP - General Internal Medicine 09/22/16 Java Web User Interface Developer Relationship Specialty Start Date End Date Miesha Guillen, DO PCP - General Internal Medicine 09/22/16 Java Web User Interface Developer Relationship Specialty Start Date End Date Miesha Guillen DO PCP - General Internal Medicine 09/22/16 Java Web User Interface Developer Relationship Specialty Start Date End Date Miesha Guillen DO PCP - General Internal Medicine 09/22/16 Java Web User Interface Developer Relationship Specialty Start Date End Date Miesha Guillen DO PCP - General Internal Medicine 09/22/16 Java Web User Interface Developer Relationship Specialty Start Date End Date Miesha Guillen DO (Fax) PCP - General Internal Medicine 09/22/16 Java Web User Interface Developer Relationship Specialty Start Date End Date Miesha Guillen DO (Fax) PCP - General Internal Medicine 09/22/16 Java Web User Interface Developer Relationship Specialty Start Date End Date Miesha Guillen DO (Fax) PCP - General Internal Medicine 09/22/16 Team Status: Active Member Role Status Dates Dr. Miesha Guillen DO Family Provider Active Dr. Miesha Guillen DO Primary Care Provider Active Team Status: Inactive Member Role Status Dates Dr. Miesha Guillen DO Primary Care Pr ovider, Attending Provider, Referring Provider Active Java Web User Interface Developer Relationship Specialty Start Date End Date Miesha Guillen DO PCP - General Internal Medicine 09/22/16 Java Web User Interface Developer Relationship Specialty Start Date End Date Miesha Guillen DO PCP - General Internal Medicine 09/22/16 Java Web User Interface Developer Relationship Specialty Start Date End Date Miesha Guillen DO PCP - General Internal Medicine 09/22/16 Java Web User Interface Developer Relationship Specialty Start Date End Date Miesha Guillen DO (Fax) PCP - General Internal Medicine 09/22/16 Java Web User Interface Developer Relationship Specialty Start Date End Date Miesha Guillen DO PCP - General Internal Medicine 09/22/16 Java Web User Interface Developer Relationship Specialty Start Date End Date Miesha Guillen DO PCP - General Internal Medicine 09/22/16 Java Web User Interface Developer Relationship Specialty Start Date End Date Miesha Guillen DO PCP - General Internal Medicine 09/22/16 Java Web User Interface Developer Relationship Specialty Start Date End Date Miesha Guillen DO [address] [facility] [address] [place] [address] PCP - General 08/30/17 Java Web User Interface Developer Relationship Specialty Start Date End Date Miesha Guillne DO [address] [facility] [address] [place] [address] PCP - General 08/30/17 Java Web User Interface Developer Relationship Specialty Start Date End Date Miesha Guillen DO PCP - General Internal Medicine 09/22/16 Java Web User Interface Developer Relationship Specialty Start Date End Date Miesha Guillen DO PCP - General Internal Medicine 09/22/16 Java Web User Interface Developer Relationship Specialty Start Date End Date Miesha Guillen DO PCP - General Internal Medicine 09/22/16 Java Web User Interface Developer Relationship Specialty Start Date End Date Miesha Guillen DO PCP - General Internal Medicine 09/22/16 Java Web User Interface Developer Relationship Specialty Start Date End Date Miesha GuillenDO PCP - General Internal Medicine 09/22/16 Java Web User Interface Developer Relationship Specialty Start Date End Date WilmerMiesha green DO Julio PCP - General Internal Medicine 09/22/16 Reason for Visit (unrecogniz ed section and content) Reason Comments Established Patient Reason Comments Refill Request Specialty Diagnoses / Procedures Referred By Leyla t Referred To Contact MR IMAGING Diagnoses Multiple sclerosis (HCC) Encounter for long-term (current) use of medications Procedures MRI BRAIN WO/W IVCON MRI BRAIN BRAIN STEM W/O W/CONTRAST MATERIAL Mary Landis, SLOAN.FAMILY SERVICES ASSISTANT [address] [place] [address] Mr Imaging Referral ID Status Reason Start Date Expiration Date V isits Requested Visits Authorized [id number] Closed Auto-Generate d Referral 09/30/2021 03/19/2022 1 1 Reason Comments Established Patient Follow-Up Reason Comments Consult Left Breast Calcific ations Reason Comments Follow Up Left breast biopsy r esults Reason Comments Orders Reason Comments New Patient Surgical consult Reason Comments Established Patient Follow-Up Reason Comments Radiology MRI Specialty Diagnoses / Procedures Referred By Leyla t Referred To Contact MR IMAGING Diagnoses Encounter for long-term (current) use of medications Multiple sclerosis (HCC) Procedures MRI BRAIN WO/W IVCON MRI BRAIN BRAIN STEM W/O W/CONTRAST MATERIAL Mary Landis, VP PURCHASING.FAMILY SERVICES ASSISTANT [address] [place] [address] Mr Imaging Referral ID Status Reason Start Date Expiration Date V isits Requested Visits Authorized [id number] Closed Auto-Generate d Referral 03/01/2022 03/31/2023 1 1 Reason Comments Pain (Shoulder Pain) Reason Comments Pain Reason Comments Results Specialty Diagnoses / Procedures Referred By Leyla t Referred To Contact Radiology Diagnoses Pure hypercholesterolemia, unspecified Procedures CT cardiac scoring wo IV contrast Miesha Guillen, DO [address] [facility] [address] [place] [address] Referral ID Status Reason Start Date Expiration Date Visits Requested Visits Authorized [id number] Authorized Perform Procedure 3 07/23/2024 1 1 Specialty Diagnoses / Procedures Referred By Contac t Referred To Contact MR IMAGING Diagnoses Multiple sclerosis (HCC) Procedures MRI BRAIN WO/W IVCON MRI BRAIN BRAIN STEM W/O W/CONTRAST MATERIAL Mary Landis, VP PURCHASING.FAMILY SERVICES ASSISTANT [address] [place] [address] [place] [id number] Referral ID Status Reason Start Date Expiration Date V isits Requested Visits Authorized [id number] Closed Auto-Generate d Referral 02/27/2023 03/28/2024 1 1 Reason Comments Insurance Authorization Goals (unrecognized section and content) Goals may be documented in a n alternate sectionGoals may be documented in an alternate sectionGoals may be documented in an alternate sectionGoals may be documented in an alternate section FOR RECORDS PERTAINING TO PATIENTS WHO ARE OR HAVE BEEN ENROLLED IN A CHEMICAL DEPENDENCY/SUBSTANCEABUSE PROGRAM, SOME INFORMATION MAY BE OMITTED. This clinical summary was aggregated from multiple sources. Caution should be exercised in using it in the provision of clinical care. This summary normalizes information from multiple sources, and as a consequence, information in this document may materially change the coding, format and clinical context of patient data. In addition, data may be omitted in some cases. CLINICAL DECISIONS SHOULD BE BASED ON THE PRIMARY CLINICAL RECORDS. [employer] provides no warranty or guarantee of the accuracy or completeness of information in this document.
== END | disposition home or self-care (01) ==
LOC: OPBD 08:21
PROVIDERS: PCP Internal Medicine; Referring Provider Internal Medicine; Visit Provider Internal Medicine
DX: N95.9 Unspecified menopausal and perimenopausal disorder (principal)
CPT/HCPCS: 77080